=== PATIENT | female | born 1955 | race Hispanic/Latino ===

== ENCOUNTER 2016-11-30 13:41 | Observation (INO) | payer MEDICAID ==
[2016-11-30 13:42] VITALS: BMI 15.1
--- NOTE | 2016-11-30 14:27 | C.PDOC ---
History Of Present Illness A 61 y/o F with a Hx of HTN, diabetes, and CA who has not followed up with her PMD since her last CA 2 years ago, c/o left sided chest pain associated with nausea, vomiting, and diarrhea for 3 days. Patient took 81 mg of Aspirin prior to arrival. Denies fever, chills, SOB, palpitations, diaphoresis, lightheadedness, lower extremity pain, weakness, abdominal pain, or any other complaints. Time Seen by Provider: 11/30/16 14:06 Chief Complaint (Nursing): Chest Pain History Per: Patient History/Exam Limitations: no limitations Onset/Duration Of Symptoms: Days (3) Severity: Mild Quality: "Pain" Associated Symptoms: Nausea, Other (Vomiting and diarrhea) Recent travel outside of the [place]: No Additional History Per: Patient Past Medical History Reviewed: Historical Data, Nursing Documentation, Vital Signs Vital Signs: Last Vital Signs Temp 99.0 F 11/30/16 13:51 Pulse 102 H 11/30/16 15:42 Resp 17 11/30/16 15:42 BP 150/91 H 11/30/16 15:42 Pulse Ox 97 11/30/16 19:21 - Medical History PMH: CHF, Depression, Diabetes, Fractures (left 5th metacarpal), HTN Denies: Chronic Kidney Disease - [facility] Procedures APPLICATION OF SPLINT (11/03/13) CL FX REDUC-RADIUS/ULNA (12/31/13) CORONAR ARTERIOGR-2 CATH (05/15/14) INSPECTION OF LOWER INTESTINAL TRACT, ENDO (04/07/15) LEFT HEART CARDIAC CATH (05/15/14) LT HEART ANGIOCARDIOGRAM (05/15/14) OP RED-INT FIX RAD/ULNA (01/23/14) Family History: States: Unknown Family Hx - Social History Hx Tobacco Use: Yes Hx Alcohol Use: Yes Hx Substance Use: No - Immunization History Hx Tetanus Toxoid Vaccination: Yes Hx Influenza Vaccination: Yes Hx Pneumococcal Vaccination: Yes Review Of Systems Except As Marked, All Systems Reviewed And Found Negative. Constitutional: Negative for: Fever, Chills, Sweats Cardiovascular: Positive for: Chest Pain (Left sided). Negative for: Palpitations, Light Headedness Respiratory: Negative for: Shortness of Breath Gastrointestinal: Positive for: Nausea, Vomiting, Diarrhea. Negative for: Abdominal Pain Physical Exam - Physical Exam Appears: Non-toxic, No Acute Distress, Unkempt Skin: Warm, Dry Head: Atraumatic, Normacephalic Cardiovascular: Rhythm Regular (Tachycardic) Respiratory: Normal Breath Sounds, No Accessory Muscle Use, No Rales, No Rhonchi , No Wheezing Gastrointestinal/Abdominal: Soft, No Tenderness Extremity: Normal ROM (x4), No Pedal Edema, No Calf Tenderness, Capillary Refill (<2secs), No Swelling Extremity: Bilateral: Normal Color And Temperature Neurological/Psych: Oriented x3, Normal Speech, Normal Cognition ED Course And Treatment - Laboratory Results Result Diagrams: 11/30/16 14:28 11/30/16 14:28 O2 Sat by Pulse Oximetry: 97 (RA) Pulse Ox Interpretation: Normal - CT Scan/US CTA CHEST Other Rad Studies (CT/US): Interpreted By Me, Read By Radiologist CT/US Interpretation: EXAM: CT Angiography Chest With Intravenous Contrast. CLINICAL HISTORY: 61 years old, female; Pain; Chest pain; Type not specified. TECHNIQUE: Axial computed tomographic angiography images of the chest with intravenous contrast using. pulmonary embolism protocol. This CT exam was performed using one or more of the following dose. reduction techniques: automated exposure control, adjustment of the mA and/or kV according to. patient size, and/or use of iterative reconstruction technique. MIP reconstructed images were created and reviewed. Coronal and sagittal reformatted images were created and reviewed. CONTRAST: 100 mL of visipaque 320 administered intravenously. EXAM DATE/TIME: Exam ordered 11/30/2016 6:00 PM. COMPARISON: CT - CHEST W/O CONTRAST 04/13/2015 4:09:27 PM. FINDINGS: Pulmonary arteries: Unremarkable. No pulmonary embolism. Aorta: No acute findings. No thoracic aortic aneurysm. Lungs: There is very mild centrilobular type emphysema There is hyperinflation. A 4 mm pulmonary. nodules noted in the lateral basal segment of the right lower lobe (series 4 image 65). This is stable. A pleural-based nodule is noted in the posterior basal segment of the right lower lobe (series 4 image. 61).. This is stable. A 2 mm pleural-based nodule is noted in the lateral basal segment of the left. lower lobe. This is stable. Pleural space: Unremarkable. No significant effusion. No pneumothorax. Heart: Unremarkable. No cardiomegaly. No significant pericardial effusion. No evidence of RV. dysfunction. Mediastinum: There is a small sliding hiatal hernia. Bones/joints: No acute fracture. No dislocation. Soft tissues: There is mild inflammatory stranding noted within the fat of the anterior pararenal. space.. Lymph nodes: Unremarkable. No enlarged lymph nodes. Liver: The liver is low in density. Pancreas: Calcifications are noted within the pancreatic head. There is relative atrophy of the tail of. the pancreas. There is a dilatation of the pancreatic duct. IMPRESSION: 1. No pulmonary embolism. 2. Bilateral pulmonary nodules which are stable from the previous study dated 04/13. ACR. White Paper guidelines (MacMahon, et al. Radiology 2017; 284(1):228 -43) suggest that no further. follow-up is necessary for patients with low or high risk of malignancy. 3. Mild emphysema with hyperinflation. 4. Hepatic steatosis. 5. Chronic calcific pancreatitis. 6. Inflammatory stranding noted within the fat of the anterior pararenal space. This could be. manifestation of pancreatitis but is probably not changed from previous. Medical Decision Making Medical Decision Making: Impression: A 61 y/o F c/o left sided chest pain associated with nausea, vomiting, and diarrhea for 3 days. Hx of HTN, diabetes, and CA. Has not followed up with PMD since her last CA 2 years ago, Plans: * EKG * CXR * Blood work up * Aspirin * Reassess EKG shows sinus tachycardia at 105bpm with normla intervals and no ST changes. Cxray negative. Presentation more consistent with acs, but will get CTA to r/o PE due to elevated d-dimer. Spoke to Dr. Michel, patient to be transferred to tele observation for acs. Disposition - Disposition Disposition: HOSPITALIZED Disposition Time: 15:42 Condition: FAIR - Clinical Impression Clinical Impression: Chest discomfort - Scribe Statement The provider has reviewed the documentation as recorded by the Scribe Dilia holden All medical record entries made by the Nerisibdonte were at my direction and personally dictated by me. I have reviewed the chart and agree that the record accurately reflects my personal performance of the history, physical exam, medical decision making, and the department course for this patient. I have also personally directed, reviewed, and agree with the discharge instructions and disposition.
[2016-11-30 14:44] LABS: PROTHROMBIN TIME 11.5 SECONDS (9.7-12.2)
[2016-11-30 14:46] LABS: ALBUMIN 3.8 g/dL (3.5-5.0)
[2016-11-30 14:48] LABS: ALB/GLOB RATIO 0.9 (1.0-2.1); ALT/SGPT 57 U/L (9-52); AST/SGOT 111 U/L (14-36); BASO # 0.1 K/uL (0.0-0.2); BASO % 1.1 % (0.0-2.0); BLOOD UREA NITROGEN 5 mg/dL (7-17); EOS # 0.1 K/uL (0.0-0.7); EOS % 1.3 % (0.0-4.0); GFR AFRICAN-AMERICAN > 60; GFR NON-AFRICAN AMERICAN > 60; HEMOGLOBIN 11.4 g/dL (11.0-16.0); LYMPH % 19.3 % (20.0-40.0); MEAN CORPUSCULAR HEMOGLOBIN 35.6 pg (27.0-31.0); MEAN CORPUSCULAR HGB CONC 33.9 g/dL (33.0-37.0); MEAN PLATELET VOLUME 9.2 fL (7.2-11.7); MONO # 0.5 K/uL (0.0-0.8); MONO % 9.3 % (0.0-10.0); NEUT # 3.6 K/uL (1.8-7.0); NRBC % 0.1 % (0.0-2.0); RBC 3.21 Mil/uL (3.80-5.20); RED CELL DISTRIBUTION WIDTH 16.2 % (11.5-14.5); WHITE BLOOD COUNT 5.2 K/uL (4.8-10.8)
[2016-11-30 14:49] LABS: LIPASE 11 U/L (23-300); MAGNESIUM 1.1 mg/dL (1.6-2.3)
[2016-11-30 14:55] LABS: CK-MB 0.68 ng/mL (0.0-3.38)
--- NOTE | 2016-11-30 16:04 | RAD ---
HISTORY: chest pain COMPARISON: No prior. FINDINGS: LUNGS: No active pulmonary disease. PLEURA: No significant pleural effusion identified, no pneumothorax apparent. CARDIOVASCULAR: Normal. OSSEOUS STRUCTURES: No significant abnormalities. VISUALIZED UPPER ABDOMEN: Normal. OTHER FINDINGS: None. IMPRESSION: No active disease.
[2016-11-30] MEDS ORDERED: Sodium Chloride 0.9% 1,000 ML IV ONE (16:35)
[2016-11-30] MEDS ORDERED: Sodium Chloride 0.9% 1,000 ML ONE (17:11)
[2016-11-30] MEDS ORDERED: Iodixanol 320 mg/ml 150 ml Bottle IV ONE (18:41)
--- NOTE | 2016-11-30 19:32 | CT ---
EXAM: CT Angiography Chest With Intravenous Contrast CLINICAL HISTORY: 61 years old, female; Pain; Chest pain; Type not specified TECHNIQUE: Axial computed tomographic angiography images of the chest with intravenous contrast using pulmonary embolism protocol. This CT exam was performed using one or more of the following dose reduction techniques: automated exposure control, adjustment of the mA and/or kV according to patient size, and/or use of iterative reconstruction technique. MIP reconstructed images were created and reviewed. Coronal and sagittal reformatted images were created and reviewed. CONTRAST: 100 mL of visipaque 320 administered intravenously. EXAM DATE/TIME: Exam ordered 11/30/2016 6:00 PM COMPARISON: CT - CHEST W/O CONTRAST 04/13/2015 4:09:27 PM FINDINGS: Pulmonary arteries: Unremarkable. No pulmonary embolism. Aorta: No acute findings. No thoracic aortic aneurysm. Lungs: There is very mild centrilobular type emphysema There is hyperinflation. A 4 mm pulmonary nodules noted in the lateral basal segment of the right lower lobe (series 4 image 65). This is stable. A pleural-based nodule is noted in the posterior basal segment of the right lower lobe (series 4 image 61).. This is stable. A 2 mm pleural-based nodule is noted in the lateral basal segment of the left lower lobe. This is stable. Pleural space: Unremarkable. No significant effusion. No pneumothorax. Heart: Unremarkable. No cardiomegaly. No significant pericardial effusion. No evidence of RV dysfunction. Mediastinum: There is a small sliding hiatal hernia. Bones/joints: No acute fracture. No dislocation. Soft tissues: There is mild inflammatory stranding noted within the fat of the anterior pararenal space.. Lymph nodes: Unremarkable. No enlarged lymph nodes. Liver: The liver is low in density. Pancreas: Calcifications are noted within the pancreatic head. There is relative atrophy of the tail of the pancreas. There is a dilatation of the pancreatic duct. IMPRESSION: 1. No pulmonary embolism. 2. Bilateral pulmonary nodules which are stable from the previous study dated 04/13/2015. ACR White Paper guidelines (Jacquelinehosoni, et al. Radiology 2017; 284(1):228-43) suggest that no further follow-up is necessary for patients with low or high risk of malignancy. 3. Mild emphysema with hyperinflation 4. Hepatic steatosis. 5. Chronic calcific pancreatitis. 6. Inflammatory stranding noted within the fat of the anterior pararenal space. This could be manifestation of pancreatitis but is probably not changed from previous.
[2016-12-01] MEDS ORDERED: Nitroglycerin 2% Ointment Foilpak UD TOP PRN (02:52)
[2016-12-01] MEDS ORDERED: Albuterol-Ipratrop 3 mg / 0.5 (3 ml) UD INH STA (02:53)
[2016-12-01 04:17] LABS: CK-MB 0.31 ng/mL (0.0-3.38)
[2016-12-01] MEDS ORDERED: Magnesium Sulfate 1 gm in D5W 1 GM/100 ML BAG IVPB ONE (09:41)
[2016-12-01] MEDS: Enoxaparin 40 mg Syringe SC SCH (10:41)
[2016-12-01] MEDS: Pantoprazole 40 mg EC Tab PO SCH (10:41)
[2016-12-01] MEDS: Sodium Chloride 0.9% 1,000 ML IV SCH ×2 (10:42→19:54)
--- NOTE | 2016-12-01 11:49 | CP.PCM.PN ---
Subjective - Date & Time of Evaluation Date of Evaluation: 12/01/16 Time of Evaluation: 09:00 - Subjective Subjective: PGY-2 Resident Progress Note for Dr. Michel Patient seen and examined at bedside. No acute events overnight. Patient still complains of left sided chest discomfort. Patient reports her nausea and vomiting have resolved. Patient denies alcohol consumption prior to ED admission , stating her last drink was more than 2 weeks ago. Patient is noncompliance, stating her doctors do not like her insurance anymore. Patient denies headache, fever, chills, shortness of breath, coughs, nausea, vomiting, or diarrhea. Objective - Vital Signs/Intake and Output Vital Signs (last 24 hours): Temp Pulse Resp BP Pulse Ox 98.1 F 81 18 148/72 100 12/01/16 07:00 12/01/16 08:00 12/01/16 07:00 12/01/16 07:00 12/01/16 07:00 - Medications Medications: Current Medications Aspirin (Ecotrin) 81 mg PO DAILY [facility] Last Admin: 12/01/16 10:40 Dose: 81 mg Enoxaparin Sodium (Lovenox) 40 mg SC DAILY [facility] Last Admin: 12/01/16 10:41 Dose: 40 mg Sodium Chloride (Sodium Chloride 0.9%) 1,000 mls @ 100 mls/hr IV .Q10H [facility] Last Admin: 12/01/16 10:42 Dose: 100 mls/hr Insulin Human Regular (Novolin R) 0 unit SC ACHS [facility] PRN Reason: Protocol Nitroglycerin (Nitro-Bid 2% Oint) 1 ea TOP Q4 PRN PRN Reason: Pain, moderate (4-7) Pantoprazole Sodium (Protonix Ec Tab) 40 mg PO DAILY [facility] Last Admin: 12/01/16 10:41 Dose: 40 mg - Labs Labs: PT 11.5 SECONDS (9.7-12.2) 11/30/16 14:33 INR 1.0 11/30/16 14:33 APTT 31 SECONDS (21-34) 11/30/16 14:33 - Constitutional Appears: Non-toxic, No Acute Distress, Chronically Ill - Head Exam Head Exam: ATRAUMATIC, NORMAL INSPECTION - Eye Exam Eye Exam: Normal appearance - ENT Exam ENT Exam: Mucous Membranes Moist - Neck Exam Neck Exam: Normal Inspection - Respiratory Exam Respiratory Exam: Clear to Ausculation Bilateral, NORMAL BREATHING PATTERN. absent: Wheezes, Respiratory Distress - Cardiovascular Exam Cardiovascular Exam: REGULAR RHYTHM, +S1, +S2. absent: Murmur - GI/Abdominal Exam GI & Abdominal Exam: Soft, Normal Bowel Sounds. absent: Tenderness - Extremities Exam Extremities Exam: Full ROM, Normal Capillary Refill, Normal Inspection. absent : Joint Swelling, Pedal Edema - Neurological Exam Neurological Exam: Alert, Awake, Oriented x3 - Psychiatric Exam Psychiatric exam: Normal Affect, Normal Mood - Skin Skin Exam: Normal Color, Warm Assessment and Plan - Assessment and Plan (Free Text) Assessment: Chest pain r/o ACS -Cardiology consult, Dr. Khan help appreciated -COREY negative x2 -No acute ST changes on EKG -CXR showed no active disease -ASA -Nitroglycerin -Echo showed Grade 1 abnormal relaxation pattern, but otherwise normal study. EF 60% Hypertension -Metoprolol 25mg -Monitor vitals DM -ISS -Pending A1c HLD -Lipid panel Prophylactic measures -Lovenox -Protonix
[2016-12-01 12:01] LABS: CK-MB 0.27 ng/mL (0.0-3.38)
--- NOTE | 2016-12-01 12:49 | CARD ---
APPROVED REPORT EKG Measurement Heart [id number] <Conclusion> Sinus tachycardia Otherwise normal ECG
--- NOTE | 2016-12-01 13:09 | CARD ---
APPROVED REPORT EXAM: Two-dimensional and M-mode echocardiogram with Doppler and color Doppler. Other Information Quality : GoodRhythm : NSR INDICATION Chest Pain H/O DC; ALCOHOL ABUSE RISK FACTORS Hypertension Diabetes Smoking 2D DIMENSIONS IVSd0.9 (0.7-1.1cm)LVDd4.2 (3.9-5.9cm) LVOT Diameter1.6 (1.8-2.4cm)PWd0.9 (0.7-1.1cm) IVSs1.1 (0.8-1.2cm)LVDs2.8 (2.5-4.0cm) FS (%) 32.7 %PWs1.2 (0.8-1.2cm) LVEF (%)61.6 (>50%) Aortic Valve AoV Peak Drlmepas832.6cm/sAoV VTI30.2cmAO Peak GR.7mmHg LVOT Peak Cvlybjlp606.3cm/Kings Mean GR.6mmHgAVA (VMAX)1.57cm2 Mitral Valve MV E Dbtgozsy84.0cm/sMV A Ffjaedjv63.7cm/sE/A ratio0.6 TDI E/Lateral E'0.0E/Medial E'0.0 Pulmonary Valve PV Peak Ryampymi406.5cm/sPV Peak Grad.5mmHg Tricuspid Valve TR Peak [id number]/sTR Peak Gr.[id number] LEFT VENTRICLE The left ventricle is normal size. There is normal left ventricular wall thickness. The left ventricular function is normal. The left ventricular ejection fraction is within the normal range. There is normal LV segmental wall motion. The left ventricular diastolic function is normal. Transmitral Doppler flow pattern is Grade I-abnormal relaxation pattern. No left ventricle thrombus noted on this study. There is no ventricular septal defect visualized. There is no left ventricular aneurysm. There is no mass noted in the left ventricle. RIGHT VENTRICLE The right ventricle is normal size. There is normal right ventricular wall thickness. The right ventricular systolic function is normal. ATRIA The left atrium size is normal. The right atrium size is normal. The interatrial septum is intact with no evidence for an atrial septal defect. AORTIC VALVE The aortic valve is normal in structure. No aortic regurgitation is present. There is no aortic valvular stenosis. There is no aortic valvular vegetation. MITRAL VALVE The mitral valve is normal in structure. There is no mitral valve stenosis. There is no mitral valve regurgitation noted. TRICUSPID VALVE The tricuspid valve is normal in structure. There is no tricuspid valve regurgitation noted. PULMONIC VALVE The pulmonary valve is normal in structure. GREAT VESSELS The aortic root is normal in size. The ascending aorta is normal in size. The pulmonary artery is normal. The IVC is normal in size and collapses >50% with inspiration. PERICARDIAL EFFUSION There is no pericardial effusion. <Conclusion> The left ventricular diastolic function is normal. Transmitral Doppler flow pattern is Grade I-abnormal relaxation pattern. LVEF IS 60%. OTHERWISE NORMAL STUDY.
[2016-12-01] MEDS: (Novolin R) Insulin Human Regular 100 units/ml vial SC SCH ×3 (13:32→21:48)
[2016-12-01 15:59] VITALS: TEMP 98.5
--- NOTE | 2016-12-01 17:13 | CP.PCM.CON ---
History of Present Illness - History of Present Illness History of Present Illness: I was asked to see patient by Dr. Michel. Patient is a 61 year old male with a history of HTN, hypercholesterolemia, CAD who presents wtih chest/upper abdominal pain. The patient was noted to have symptoms for the last few days. She describes a nauseous feeling. The patient denies dyspnea. She has been noncompliant with medical follow up. Review of Systems - Constitutional Constitutional: absent: As Per HPI, Anorexia, Chills, Daytime Sleepiness, Excessive Sweating, Fatigue, Fever, Frequent Falls, Headache, Increased Appetite , Lethargy, Malaise, Night Sweats, Snoring, Sleep Apnea, Weight Gain, Weight Loss, Weakness, Other - EENT Eyes: absent: As Per HPI, Blind Spots, Blurred Vision, Change in Vision, Decreased Night Vision, Diplopia, Discharge, Dry Eye, Exophthalmos, Floaters, Irritation, Itchy Eyes, Loss of Peripheral Vision, Pain, Photophobia, Requires Corrective Lenses, Sees Flashes, Spots in Vision, Tunnel Vision, Other Visual Disturbances, Loss of Vision, Other Ears: absent: As Per HPI, Decreased Hearing, Ear Discharge, Ear Pain, Tinnitus, Abnormal Hearing, Disequilibrium, Dizziness, Other Nose/Mouth/Throat: absent: As Per HPI, Epistaxis, Nasal Congestion, Nasal Discharge, Nasal Obstruction, Nasal Trauma, Nose Pain, Post Nasal Drip, Sinus Pain, Sinus Pressure, Bleeding Gums, Change in Voice, Dental Pain, Dry Mouth, Dysphagia, Halitosis, Hoarsness, Lip Swelling, Mouth Lesions, Mouth Pain, Odynophagia, Sore Throat, Throat Swelling, Tongue Swelling, Facial Pain, Neck Pain, Neck Mass, Other - Cardiovascular Cardiovascular: absent: As Per HPI, Acrocyanosis, Chest Pain, Chest Pain at Rest , Chest Pain with Activity, Claudication, Diaphoresis, Dyspnea, Dyspnea on Exertion, Edema, Irregular Heart Rhythm, Pain Radiating to Arm/Neck/Jaw, Leg Edema, Leg Ulcers, Lightheadedness, Orthopnea, Palpitations, Paroxysmal Nocturnal Dyspnea, Pedal Edema, Radiating Pain, Rapid Heart Rate, Slow Heart Rate, Syncope, Other - Respiratory Respiratory: absent: As Per HPI, Cough, Dyspnea, Hemoptysis, Dyspnea on Exertion , Wheezing, Snoring, Stridor, Pain on Inspiration, Chest Congestion, Excessive Mucous Production, Change in Mucous Color, Pain with Coughing, Other - Gastrointestinal Gastrointestinal: Abdominal Pain - Genitourinary Genitourinary: absent: As Per HPI, Change in Urinary Stream, Difficulty Urinating, Dysuria, Flank Pain, Hematuria, Pyuria, Nocturia, Urinary Incontinence, Urinary Frequency, Urinary Hesitance, Urinary Urgency, Voiding Freq/Small Amts, Freq UTI, Hx Renal/Bladder Calculi, Hx /Renal Surgery, Bladder Distension, Other - Musculoskeletal Musculoskeletal: absent: As Per HPI, Abnormal Gait, Arthralgias, Atrophy, Back Pain, Deformity, Joint Swelling, Limited Range of Motion, Loss of Height, Muscle Cramps, Muscle Weakness, Myalgias, Neck Pain, Numbness, Radiating Pain into Limb, Stiffness, Tingling, Other - Integumentary Integumentary: absent: As Per HPI, Acne, Alopecia, Bleeding Lesions, Change in Hair, Change in Nails, Change in Pigmentation, Changing Lesions, Dry Skin, Erythema, Furuncle, Hirsutism, Lesions, New Lesions, Non-Healing Lesions, Photosensitivity, Pruritus, Rash, Skin Pain, Skin Ulcer, Sores, Striae, Swelling , Unusual Bruising, Wounds, Jaundice, Other - Neurological Neurological: absent: As Per HPI, Abnormal Gait, Abnormal Hearing, Abnormal Movements, Abnormal Speech, Behavioral Changes, Burning Sensations, Confusion, Convulsions, Disequilibrium, Dizziness, Numbness, Focal Weakness, Frequent Falls , Headaches, Lack of Coordination, Loss of Vision, Memory Loss, Paresthesias, Radicular Pain, Restless Legs, Sensory Deficit, Syncope, Tingling, Tremor, Vertigo, Weakness, Other Visual Disturbances, Other - Psychiatric Psychiatric: absent: As Per HPI, Abnormal Sleep Pattern, Anhedonia, Anxiety, Auditory Hallucinations, Behavioral Changes, Change in Appetite, Change in Libido, Confusion, Depression, Difficulty Concentrating, Hallucinations, Homicidal Ideation, Hopelessness, Irritability, Memory Loss, Mood Swings, Panic Attacks, Paranoia, Suicidal Ideation, Visual Hallucinations, Tactile Hallucinations, Other - Endocrine Endocrine: absent: As Per HPI, Change in Body Appearance, Change in Libido, Cold Intolorance, Deepening of Voice, Excessive Sweating, Fatigue, Flushing, Heat Intolorance, Increase in Ring/Shoe/Hat Size, Palpitations, Polydipsia, Polyphagia, Polyuria, Other - Hematologic/Lymphatic Hematologic: absent: As Per HPI, Easy Bleeding, Easy Bruising, Lymphadenopathy, Other Past Patient History - Infectious Disease Hx of Infectious Diseases: None - Past Medical History & Family History Past Medical History?: Yes - Past Social History Smoking Status: Former Smoker - CARDIAC Hx Cardiac Disorders: Yes Hx Congestive Heart Failure: Yes Hx Heart Attack: Yes Hx Hypertension: Yes - PULMONARY Hx Respiratory Disorders: No Other/Comment: HEAVY SMOKER - NEUROLOGICAL Hx Neurological Disorder: Yes HX Cerebrovascular Accident: Yes (As per CT exam) Hx Transient Ischemic Attacks (TIA): Yes (As per pt) - HEENT Hx HEENT Problems: No - RENAL Hx Chronic Kidney Disease: No - ENDOCRINE/METABOLIC Hx Endocrine Disorders: Yes Hx Diabetes Mellitus Type 2: Yes - HEMATOLOGICAL/ONCOLOGICAL Hx Blood Disorders: No - INTEGUMENTARY Hx Dermatological Problems: No - MUSCULOSKELETAL/RHEUMATOLOGICAL Hx Musculoskeletal Disorders: Yes Hx Falls: Yes Hx Fractures: Yes (left 5th metacarpal) - GASTROINTESTINAL Hx Gastrointestinal Disorders: Yes Hx Clostridium Difficile: Yes - GENITOURINARY/GYNECOLOGICAL Hx Genitourinary Disorders: No - PSYCHIATRIC Hx Psychophysiologic Disorder: Yes Hx Depression: Yes Hx Substance Use: No - SURGICAL HISTORY Hx Surgeries: Yes Hx Angiogram: Yes (Lt Hrt Angiocardiogram 04/2014) Hx Cardiac Catheterization: Yes (Lt [facility] Cardiac cath 04/2014) Hx Orthopedic Surgery: Yes (left wrist) Other/Comment: ABDOMINAL EXPLORITORY SX. - ANESTHESIA Hx Anesthesia: Yes Hx Anesthesia Reactions: No Hx Malignant Hyperthermia: No Meds Allergies/Adverse Reactions: Allergies Allergy/AdvReac Type Severity Reaction Status Date / Time acetaminophen [From Tylenol] Allergy Intermediate SWELLING Verified 11/30/16 13: 55 codeine Allergy Intermediate SWELLING Verified 11/30/16 13:55 Penicillins Allergy Intermediate SWELLING Verified 11/30/16 13:55 - Medications Medications: Current Medications Aspirin (Ecotrin) 81 mg PO DAILY REPLACED BY [facility] Last Admin: 12/01/16 10:40 Dose: 81 mg Enoxaparin Sodium (Lovenox) 40 mg SC DAILY REPLACED BY [facility] Last Admin: 12/01/16 10:41 Dose: 40 mg Sodium Chloride (Sodium Chloride 0.9%) 1,000 mls @ 100 mls/hr IV .Q10H REPLACED BY [facility] Last Admin: 12/01/16 10:42 Dose: 100 mls/hr Insulin Human Regular (Novolin R) 0 unit SC [facility] REPLACED BY [facility] PRN Reason: Protocol Last Admin: 12/01/16 13:32 Dose: 2 unit Nitroglycerin (Nitro-Bid 2% Oint) 1 ea TOP Q4 PRN PRN Reason: Pain, moderate (4-7) Pantoprazole Sodium (Protonix Ec Tab) 40 mg PO DAILY REPLACED BY [facility] Last Admin: 12/01/16 10:41 Dose: 40 mg Physical Exam - Constitutional Appears: Non-toxic - Head Exam Head Exam: NORMAL INSPECTION - Eye Exam Eye Exam: Normal appearance - ENT Exam ENT Exam: Mucous Membranes Moist - Neck Exam Neck exam: Positive for: Full Rom - Respiratory Exam Respiratory Exam: NORMAL BREATHING PATTERN - Cardiovascular Exam Cardiovascular Exam: REGULAR RHYTHM - GI/Abdominal Exam GI & Abdominal Exam: Guarding, Normal Bowel Sounds, Soft - Rectal Exam Rectal Exam: Deferred - Extremities Exam Extremities exam: Positive for: full ROM. Negative for: pedal edema - Back Exam Back exam: NORMAL INSPECTION - Neurological Exam Neurological exam: Alert, Oriented x3 - Psychiatric Exam Psychiatric exam: Normal Affect - Skin Skin Exam: Normal Color Results - Vital Signs Recent Vital Signs: Last Vital Signs Temp 98.5 F 12/01/16 15:56 Pulse 92 H 12/01/16 15:56 Resp 20 12/01/16 15:56 BP 162/80 H 12/01/16 15:56 Pulse Ox 96 12/01/16 15:56 - Labs Result Diagrams: 11/30/16 14:28 11/30/16 14:28 Labs: Laboratory Results - last 24 hr 11/30/16 12/01/16 12/01/16 17:25 03:53 06:41 D-Dimer, Quantitative 262 H POC Glucose (mg/dL) 114 H Total Creatine Kinase 38 CK-MB (Mass) 0.31 Troponin I, Quant < 0.0120 12/01/16 12/01/16 12/01/16 11:13 11:14 16:35 D-Dimer, Quantitative POC Glucose (mg/dL) 214 H 163 H Total Creatine Kinase 32 CK-MB (Mass) 0.27 Troponin I, Quant < 0.0120 - EKG Data EKG Interpreted by: Myself Assessment & Plan - Assessment and Plan (Free Text) Assessment: CAD reported history of coronary stenting. She has ruled out for myocardial infarction. The echocardiogram reveals normal left ventricular function. no wall motion abnormalities are noted. The patient has upper abdominal pain. The symptoms are unlikely to be cardiac in origin. Hypertension. will need betablcoker therapy
[2016-12-01 19:59] LABS: HDL CHOLESTEROL 70 mg/dL (30-70)
[2016-12-01 20:11] LABS: LDL CHOLESTEROL < 30 mg/dL (0-129)
[2016-12-02 07:27] LABS: BASO % 0.7 % (0.0-2.0); EOS # 0.3 K/uL (0.0-0.7); EOS % 6.4 % (0.0-4.0); HEMOGLOBIN 9.8 g/dL (11.0-16.0); LYMPH # 1.1 K/uL (1.0-4.3); LYMPH % 25.9 % (20.0-40.0); MEAN CELL VOLUME 107.6 fL (81.0-99.0); MEAN CORPUSCULAR HEMOGLOBIN 35.9 pg (27.0-31.0); MEAN CORPUSCULAR HGB CONC 33.3 g/dL (33.0-37.0); MEAN PLATELET VOLUME 8.9 fL (7.2-11.7); MONO # 0.3 K/uL (0.0-0.8); MONO % 7.7 % (0.0-10.0); NEUT # 2.4 K/uL (1.8-7.0); NEUT % 59.3 % (50.0-75.0); NRBC % 0.1 % (0.0-2.0); RBC 2.74 Mil/uL (3.80-5.20); WHITE BLOOD COUNT 4.1 K/uL (4.8-10.8)
[2016-12-02 07:30] LABS: ALBUMIN 3.2 g/dL (3.5-5.0)
[2016-12-02 07:33] LABS: ALB/GLOB RATIO 0.9 (1.0-2.1); ALT/SGPT 40 U/L (9-52); AST/SGOT 60 U/L (14-36); BLOOD UREA NITROGEN 6 mg/dL (7-17); GFR AFRICAN-AMERICAN > 60; GFR NON-AFRICAN AMERICAN > 60
[2016-12-02 07:34] LABS: CALCIUM 8.6 mg/dl (8.6-10.4)
[2016-12-02 08:16] VITALS: BP 129/68
[2016-12-02] MEDS: (Novolin R) Insulin Human Regular 100 units/ml vial SC SCH (08:17)
[2016-12-02 08:31] VITALS: RESP 18; O2SAT 97
[2016-12-02 08:54] VITALS: PULSE 87
[2016-12-02] MEDS: Enoxaparin 40 mg Syringe SC SCH (09:24)
[2016-12-02] MEDS: Pantoprazole 40 mg EC Tab PO SCH (09:25)
--- NOTE | 2016-12-02 11:25 | CP.PCM.PN ---
Subjective - Date & Time of Evaluation Date of Evaluation: 12/02/16 Time of Evaluation: 11:20 - Subjective Subjective: [employer] NOTES 61 YR old female admitted for Chest pain r/o ACS Pt seen today denies any sob, palpitations, head ache, N/V/D, c/o mild epigastric pain troponin x 3 - negative seen by Dr. Mark moreno , as per Dr. Michel patient can be discharged home today and f/u with PMD and Dr. hernandez Discharge plan discussed with patient , who understands and agrees with plan Pt instructed to returns to ED if symptoms get worse or any other concerning symptoms RX given Objective - Vital Signs/Intake and Output Vital Signs (last 24 hours): Temp Pulse Resp BP Pulse Ox 98.5 F 87 18 129/68 97 12/02/16 08:00 12/02/16 08:00 12/02/16 08:00 12/02/16 08:16 12/02/16 08:00 Intake and Output: 12/02/16 12/02/16 06:59 18:59 Intake Total 1600 Balance 1600 - Medications Medications: Current Medications Aspirin (Ecotrin) 81 mg PO DAILY [facility] Last Admin: 12/02/16 09:24 Dose: 81 mg Enoxaparin Sodium (Lovenox) 40 mg SC DAILY [facility] Last Admin: 12/02/16 09:24 Dose: 40 mg Sodium Chloride (Sodium Chloride 0.9%) 1,000 mls @ 100 mls/hr IV .Q10H [facility] Last Admin: 12/01/16 19:54 Dose: Not Given Insulin Human Regular (Novolin R) 0 unit SC ACHS [facility] PRN Reason: Protocol Last Admin: 12/02/16 08:17 Dose: Not Given Metoprolol Tartrate (Lopressor) 25 mg PO BIDBS [facility] Last Admin: 12/02/16 08:16 Dose: 25 mg Nitroglycerin (Nitro-Bid 2% Oint) 1 ea TOP Q4 PRN PRN Reason: Pain, moderate (4-7) Pantoprazole Sodium (Protonix Ec Tab) 40 mg PO DAILY [facility] Last Admin: 12/02/16 09:25 Dose: 40 mg - Labs Labs: 12/02/16 07:16 12/02/16 07:16 PT 11.5 SECONDS (9.7-12.2) 11/30/16 14:33 INR 1.0 11/30/16 14:33 APTT 31 SECONDS (21-34) 11/30/16 14:33
--- NOTE | 2016-12-03 14:34 | HP ---
HISTORY OF PRESENT ILLNESS: The patient is a 61-year-old female chief complaint chest pain. The patient has a history of coronary artery disease before. The patient has a long history of *------*. SOCIAL HISTORY: The patient is a past smoker. PHYSICAL EXAMINATION GENERAL: The patient is awake, alert and oriented. VITAL SIGNS: Temperature 98, pulse 90. HEENT: Within normal limits. NECK: Supple. CHEST: Symmetrical. HEART: Regular. ABDOMEN: Soft. EXTREMITIES: No edema. IMPRESSION: The patient has long history of COPD. *------* Orlando Michel MD
== END 2016-12-02 13:45 | disposition home or self-care (01) ==
LOC: C.ER 13:41 → C.9E 16:35 → C.6T 12-01 01:16
PROVIDERS: ADMIT Internal Medicine Pulmonary Disease; ATTEND Internal Medicine Pulmonary Disease
DX: R07.89 Other chest pain (principal); E11.9 Type 2 diabetes mellitus without complications; E78.5 Hyperlipidemia, unspecified; I11.0 Hypertensive heart disease with heart failure; I25.10 Atherosclerotic heart disease of native coronary artery without angina pectoris; I50.9 Heart failure, unspecified; K76.0 Fatty (change of) liver, not elsewhere classified; K86.1 Other chronic pancreatitis; Z91.19 Patient's noncompliance with other medical treatment and regimen; Z87.891 Personal history of nicotine dependence
CPT/HCPCS: 36415; 71010; 71275; 80053; 80061; 80320; 82550; 82553; 82948; 83036; 83690; 83735; 84100; 84484; 85025; 85378; 85610; 85730; 93005; 93306; 99285; G0378; J1650; J3475; J7040; Q9965

== ENCOUNTER 2017-01-02 11:46 | Observation (INO) | payer MEDICAID ==
[2017-01-02 11:46] VITALS: BMI 15.1
--- NOTE | 2017-01-02 12:34 | C.PDOC ---
History Of Present Illness 61 year old female, with a history of HTN, diabetes, and MD, presents to the ED with complaints of left sided chest pain exacerbated by walking, left arm numbness, difficulty breathing, and vomiting for two days. She was discharged this month from [facility] for chest pain. Patient had echo performed from Dr. Palma and was negative. She also had negative CTA, patient denies fever or other complaints at this time. Hx of HTN, diabetes, and MD DC THIS MONTH FOR CP. NEG ECHO DR PALMA.NEG CTA Time Seen by Provider: 01/02/17 11:57 Chief Complaint (Nursing): Chest Pain History Per: Patient History/Exam Limitations: no limitations Onset/Duration Of Symptoms: Days (2 days ) Current Symptoms Are (Timing): Still Present Quality: "Pain" Associated Symptoms: Other (vomiting ) Recent travel outside of the [place]: No Additional History Per: Prior Records Past Medical History Reviewed: Historical Data, Nursing Documentation, Vital Signs Vital Signs: Last Vital Signs Temp 98.3 F 01/02/17 11:48 Pulse 90 01/02/17 14:30 Resp 13 01/02/17 14:30 BP 115/70 01/02/17 14:30 Pulse Ox 95 01/02/17 14:30 - Medical History PMH: CHF, Depression, Diabetes, Fractures (left 5th metacarpal), HTN, TIA (As per pt) - [facility] Procedures APPLICATION OF SPLINT (11/03/13) CL FX REDUC-RADIUS/ULNA (12/31/13) CORONAR ARTERIOGR-2 CATH (05/15/14) INSPECTION OF LOWER INTESTINAL TRACT, ENDO (04/07/15) LEFT HEART CARDIAC CATH (05/15/14) LT HEART ANGIOCARDIOGRAM (05/15/14) OP RED-INT FIX RAD/ULNA (01/23/14) Family History: States: Unknown Family Hx - Social History Hx Tobacco Use: Yes (patient states she quite smoking 7 months ago. ) Hx Alcohol Use: Yes Hx Substance Use: No - Immunization History Hx Tetanus Toxoid Vaccination: Yes Hx Influenza Vaccination: Yes (2015) Hx Pneumococcal Vaccination: Yes (2015) Review Of Systems Constitutional: Negative for: Fever, Chills Cardiovascular: Positive for: Chest Pain Respiratory: Positive for: Other (difficulty breathing ) Gastrointestinal: Positive for: Vomiting. Negative for: Diarrhea Neurological: Positive for: Numbness (of left arm ) Physical Exam - Physical Exam Appears: Non-toxic, In Acute Distress (mild distress ) Skin: Warm, Dry Head: Atraumatic Eye(s): bilateral: Normal Inspection Oral Mucosa: Moist Neck: Supple Chest: Symmetrical, No Deformity Cardiovascular: Rhythm Regular Respiratory: Normal Breath Sounds, No Rales, No Rhonchi, No Wheezing Gastrointestinal/Abdominal: Soft, No Tenderness, No Distention, No Guarding, No Rebound Neurological/Psych: Oriented x3, Normal Speech, Normal Cognition ED Course And Treatment - Laboratory Results Result Diagrams: 01/02/17 13:20 01/02/17 13:20 ECG: Interpreted By Me ECG Rhythm: Sinus Rhythm Rate From EC (bpm) O2 Sat by Pulse Oximetry: 95 (on nasal cannula ) Pulse Ox Interpretation: Normal - Radiology CXR: Viewed By Me, Read By Radiologist CXR Interpretation: Yes: No Acute Disease. No: Infiltrates Progress Note: EKG, CXR, and blood work were ordered. Patient was given aspirin and nitrostat. Progress - Re-Evaluation Re-evaluation Note: 01/02/17 14:04 CO RECUR PAIN. VSS. D/W DR MICHEL WILL ADMIT - Data Reviewed Data Reviewed: Lab, Diagnostic imaging, EKG, Old records Disposition Counseled Patient/Family Regarding: Studies Performed, Diagnosis - Disposition Disposition: HOSPITALIZED Disposition Time: 14:05 Condition: STABLE - POA Present On Arrival: None - Clinical Impression Clinical Impression: Chest pain - Scribe Statement The provider has reviewed the documentation as recorded by the Scribe Ashley Ortiz All medical record entries made by the Scribe were at my direction and personally dictated by me. I have reviewed the chart and agree that the record accurately reflects my personal performance of the history, physical exam, medical decision making, and the department course for this patient. I have also personally directed, reviewed, and agree with the discharge instructions and disposition. Decision To Admit - Pt Status Changed To: Hospital Disposition Of: Observation - . Bed Request Type: Telemetry Admitting Physician: Orlando Michel Patient Diagnosis: Chest pain
[2017-01-02] MEDS ORDERED: Aspirin 325 mg EC Tablets PO STA (13:09)
[2017-01-02 13:24] LABS: BASO # 0.1 K/uL (0.0-0.2); EOS # 0.1 K/uL (0.0-0.7); MONO # 0.3 K/uL (0.0-0.8); NRBC % 0.1 % (0.0-2.0); WHITE BLOOD COUNT 2.7 K/uL (4.8-10.8)
[2017-01-02] MEDS ORDERED: Aspirin 325 mg EC Tablets PO ONE (13:25)
--- NOTE | 2017-01-02 13:33 | RAD ---
HISTORY: chest pain COMPARISON: Chest x-ray performed 11/30/16 TECHNIQUE: Chest, one view. FINDINGS: LUNGS: No focal consolidation. Please note that chest x-ray has limited sensitivity for the detection of pulmonary masses. PLEURA: No significant pleural effusion identified. No definite pneumothorax . CARDIOVASCULAR: The cardiomediastinal silhouette appears within normal limits of size. OSSEOUS STRUCTURES: No acute osseous abnormality identified. VISUALIZED UPPER ABDOMEN: Unremarkable. OTHER FINDINGS: None. IMPRESSION: No focal consolidation, significant pleural effusion, or definite pneumothorax identified.
[2017-01-02 13:35] LABS: BASO % 2.3 % (0.0-2.0); BLOOD UREA NITROGEN 5 mg/dL (7-17); CALCIUM 8.7 mg/dl (8.6-10.4); CARBON DIOXIDE 22 mmol/L (22-30); CHLORIDE 94 mmol/L (98-107); EOS % 2.9 % (0.0-4.0); GFR AFRICAN-AMERICAN > 60; GLUCOSE,RANDOM 130 mg/dL (65-105); HEMATOCRIT 32.4 % (34.0-47.0); LYMPH % 37.5 % (20.0-40.0); MEAN CORPUSCULAR HEMOGLOBIN 34.4 pg (27.0-31.0); MEAN CORPUSCULAR HGB CONC 33.3 g/dL (33.0-37.0); MEAN PLATELET VOLUME 8.6 fL (7.2-11.7); MONO % 11.7 % (0.0-10.0); POTASSIUM 3.3 mmol/L (3.6-5.2); RED CELL DISTRIBUTION WIDTH 16.9 % (11.5-14.5); SODIUM 136 mmol/L (132-148)
[2017-01-02 13:36] LABS: MEAN CELL VOLUME 103.4 fL (81.0-99.0)
[2017-01-02] MEDS: Potassium Chloride 20 mEq ER Tab PO SCH (22:43)
[2017-01-03 08:16] VITALS: BP 152/73; RESP 17; TEMP 98.6; O2SAT 99
[2017-01-03] MEDS ORDERED: Enoxaparin 40 mg Syringe SC SCH (10:00)
[2017-01-03] MEDS ORDERED: (Novolin 70/30) NPH/Regular 70/30 Units/ml 10 ml vial SC SCH ×2 (10:00→18:00)
[2017-01-03] MEDS: Potassium Chloride 20 mEq ER Tab PO SCH (10:12)
[2017-01-03 13:18] VITALS: PULSE 85
--- NOTE | 2017-01-03 15:40 | CP.PCM.PN ---
Subjective - Date & Time of Evaluation Date of Evaluation: 01/03/17 Time of Evaluation: 09:20 - Subjective Subjective: PGY2 Medicine progress note for Dr. Michel: Patient is a 61 year old female with PMHx HTN, DM, emphysema who presents with complaint of chest pain and intermittent left arm tingling and numbness. Patient states that she was feeling nauseous and vomited at home prior to arrival at the hospital. Patient also complains of chest tightness for 2 days. Patient reports similar symptoms in the past. Patient states nitro given in the ER did help alleviate chest pain. Patient had workup in November for chest pain and had normal echo as well as CTA negative for pulmonary embolus. Objective - Vital Signs/Intake and Output Vital Signs (last 24 hours): Temp Pulse Resp BP Pulse Ox 98.6 F 85 17 152/73 H 99 01/03/17 07:15 01/03/17 11:00 01/03/17 07:15 01/03/17 10:12 01/03/17 07:15 Intake and Output: 01/03/17 01/03/17 06:59 18:59 Intake Total 120 400 Balance 120 400 - Labs Labs: PT 11.4 SECONDS (9.7-12.2) 01/02/17 13:20 INR 1.0 01/02/17 13:20 APTT 35 SECONDS (21-34) H 01/02/17 13:20 - Constitutional Appears: Non-toxic, No Acute Distress - Head Exam Head Exam: ATRAUMATIC, NORMOCEPHALIC - Eye Exam Eye Exam: EOMI - ENT Exam ENT Exam: Mucous Membranes Moist - Respiratory Exam Respiratory Exam: Clear to Ausculation Bilateral, NORMAL BREATHING PATTERN - Cardiovascular Exam Cardiovascular Exam: +S1, +S2 - GI/Abdominal Exam GI & Abdominal Exam: Soft, Tenderness (epigastric), Normal Bowel Sounds - Extremities Exam Extremities Exam: Normal Inspection. absent: Pedal Edema - Neurological Exam Neurological Exam: Alert, Awake - Psychiatric Exam Psychiatric exam: Normal Affect - Skin Skin Exam: Dry, Warm Assessment and Plan - Assessment and Plan (Free Text) Assessment: chest pain r/p ACS troponin negative x 3 patient's pain is more epigastric in location and reproducible on palpation of epigastric region asa 81mg daily Diabetes continue home regimen of insulin: NPH 5u QPM, NPH 10u QAM accuchecks ACHS Prophylactic measure lovenox 40mg sc daily zofran q6prn nausea pepcid 20mg PO BID All medical management as per Dr. Michel Patient is stable for discharge home per Dr. Michel. Patient will need to follow up with a new primary medical doctor from her insurance plan. If patient would like to continue seeing Dr. Michel, she can follow up with him on discharge. Upon discharge, patient should see a neurologist of her choice for left arm intermittent tingling and a GI physician of her choice for her epigastric pain. Patient should also follow up with second mate Dr. Poole on discharge. Patient should return to the ED if her symptoms reoccur or worsen.
--- NOTE | 2017-01-04 18:26 | CARD ---
APPROVED REPORT EKG Measurement Heart [id number] ID [id number] <Conclusion> Normal sinus rhythm Normal ECG
--- NOTE | 2017-01-07 07:01 | CP.PCM.CON ---
History of Present Illness - History of Present Illness History of Present Illness: Patient is a 61 year old female with PMHx HTN, DM, emphysema who presents with complaint of chest pain and intermittent left arm tingling and numbness. Patient states that she was feeling nauseous and vomited at home prior to arrival at the hospital. Patient also complains of chest tightness for 2 days. Patient reports similar symptoms in the past. Patient states nitro given in the ER did help alleviate chest pain. Patient had workup in November for chest pain and had normal echo as well as CTA negative for pulmonary embolus. Physical Examination - Constitutional Appears: Non-toxic, No Acute Distress - Head Exam Head Exam: ATRAUMATIC, NORMOCEPHALIC - Eye Exam Eye Exam: EOMI - ENT Exam ENT Exam: Mucous Membranes Moist - Respiratory Exam Respiratory Exam: Clear to Ausculation Bilateral, NORMAL BREATHING PATTERN - Cardiovascular Exam Cardiovascular Exam: +S1, +S2 - GI/Abdominal Exam GI & Abdominal Exam: Soft, Tenderness (epigastric), Normal Bowel Sounds - Extremities Exam Extremities Exam: Normal Inspection. absent: Pedal Edema - Neurological Exam Neurological Exam: Alert, Awake - Psychiatric Exam Psychiatric exam: Normal Affect - Skin Skin Exam: Dry, Warm Past Patient History - Infectious Disease Hx of Infectious Diseases: None - Past Medical History & Family History Past Medical History?: Yes - Past Social History Smoking Status: Heavy Smoker > 10 Cigarettes Daily - CARDIAC Hx Congestive Heart Failure: Yes Hx Hypertension: Yes - PULMONARY Hx Respiratory Disorders: No Other/Comment: HEAVY SMOKER - NEUROLOGICAL Hx Transient Ischemic Attacks (TIA): Yes (As per pt) - HEENT Hx HEENT Problems: No - RENAL Hx Chronic Kidney Disease: No - ENDOCRINE/METABOLIC Hx Endocrine Disorders: Yes Hx Diabetes Mellitus Type 2: Yes - HEMATOLOGICAL/ONCOLOGICAL Hx Blood Disorders: No - INTEGUMENTARY Hx Dermatological Problems: No - MUSCULOSKELETAL/RHEUMATOLOGICAL Hx Falls: No - GASTROINTESTINAL Hx Gastrointestinal Disorders: Yes Hx Clostridium Difficile: Yes - GENITOURINARY/GYNECOLOGICAL Hx Genitourinary Disorders: No - PSYCHIATRIC Hx Substance Use: No - SURGICAL HISTORY Hx Surgeries: Yes Hx Angiogram: Yes (Lt Hrt Angiocardiogram 04/2014) Hx Cardiac Catheterization: Yes (Lt hrt Cardiac cath 04/2014) Hx Orthopedic Surgery: Yes (left wrist) Other/Comment: ABDOMINAL EXPLORITORY SX. - ANESTHESIA Hx Anesthesia: Yes Hx Anesthesia Reactions: No Hx Malignant Hyperthermia: No Meds Home Medications: Home Medication List Medication Instructions Recorded Confirmed Type Aspirin [Aspirin Chewable] 81 mg PO DAILY 01/03/17 Rx Insulin Human (NPH)/Regular 5 units SC QPM unit 01/03/17 Rx [Novolin 70/30 (70/30 units/ml) 10 ml] Insulin Human (NPH)/Regular 10 units SC QAM unit 01/03/17 Rx [Novolin 70/30 (70/30 units/ml) 10 ml] Metoprolol Tartrate [Lopressor] 25 mg PO BID tab 01/03/17 Rx Allergies/Adverse Reactions: Allergies Allergy/AdvReac Type Severity Reaction Status Date / Time acetaminophen [From Tylenol] Allergy Intermediate SWELLING Verified 01/02/17 11: 51 codeine Allergy Intermediate SWELLING Verified 01/02/17 11:51 Penicillins Allergy Intermediate SWELLING Verified 01/02/17 11:51 Results - Vital Signs Recent Vital Signs: Last Vital Signs Temp 98.6 F 01/03/17 07:15 Pulse 85 01/03/17 11:00 Resp 17 01/03/17 07:15 BP 152/73 H 01/03/17 10:12 Pulse Ox 99 01/03/17 07:15 - Labs Result Diagrams: 01/02/17 13:20 01/02/17 13:20 Assessment & Plan - Assessment and Plan (Free Text) Assessment: Chest pain r/p ACS troponin negative x 3 patient's pain is more epigastric in location and reproducible on palpation of epigastric region asa 81mg daily Prior cardiac work up negative Recommend out patient management Diabetes continue home regimen of insulin: NPH 5u QPM, NPH 10u QAM accuchecks ACHS Prophylactic measure lovenox 40mg sc daily zofran q6prn nausea pepcid 20mg PO BID
== END 2017-01-03 13:10 | disposition home or self-care (01) ==
LOC: C.ER 11:46 → C.9E 14:05 → C.6T 16:58
PROVIDERS: ADMIT Internal Medicine Pulmonary Disease; ATTEND Internal Medicine Pulmonary Disease
DX: R07.9 Chest pain, unspecified (principal); I10 Essential (primary) hypertension; E11.9 Type 2 diabetes mellitus without complications
CPT/HCPCS: 36415; 71010; 80048; 82948; 84484; 85025; 85610; 85730; 99285; G0378; J1650

== ENCOUNTER 2017-03-17 14:17 | Inpatient (IN) | payer MEDICAID ==
[2017-03-17 14:17] VITALS: BMI 15.1
--- NOTE | 2017-03-17 14:58 | C.PDOC ---
Time Seen by Provider: 03/17/17 14:43 Chief Complaint (Nursing): Back Pain Past Medical History Vital Signs: Last Vital Signs Temp 97.9 F 03/17/17 14:32 Pulse 78 03/17/17 14:32 Resp 20 03/17/17 14:32 BP 126/76 03/17/17 14:32 Pulse Ox 99 03/17/17 14:32 - Medical History PMH: CHF, Depression, Diabetes, Fractures (left 5th metacarpal), HTN, TIA (As per pt) Denies: Chronic Kidney Disease - [facility] Procedures APPLICATION OF SPLINT (11/03/13) CL FX REDUC-RADIUS/ULNA (12/31/13) CORONAR ARTERIOGR-2 CATH (05/15/14) INSPECTION OF LOWER INTESTINAL TRACT, ENDO (04/07/15) LEFT HEART CARDIAC CATH (05/15/14) LT HEART ANGIOCARDIOGRAM (05/15/14) OP RED-INT FIX RAD/ULNA (01/23/14) Family History: States: Unknown Family Hx - Social History Hx Tobacco Use: Yes (patient states she quite smoking 7 months ago. ) Hx Alcohol Use: No (once in a while,beer) Hx Substance Use: No - Immunization History Hx Tetanus Toxoid Vaccination: Yes Hx Influenza Vaccination: No Hx Pneumococcal Vaccination: Yes ED Course And Treatment O2 Sat by Pulse Oximetry: 99 Disposition - Disposition
--- NOTE | 2017-03-17 15:15 | C.PDOC ---
History Of Present Illness Patient is a 61 y/o female who presents to the ED with complaints of difficulty urinating and difficulty walking for the last two days. Patient reports little output upon urination and notes suprapubic fullness. Patient reports right leg weakness, stating "it just gives out"; chronic use of cane. Patient has Hx of smoking and similar episodes of symptoms years ago in which patient reports to have been told it was due to DM; patient admits previous symptoms improved after rehab. Admits to being compliant with medication. Denies fever. No other physical complaints at this time. new onset DIFFICULTY URINATING AND DIFFICULTY WALKING X 2 DAYS. PS WHEN TRIES TO URINATE "ONLY A LITTLE COMES OUT". CO SUPRAPUB FULLNESS. NEW ONSET DIFFICULTY WALKING DUE TO R LEG WEAKNESS "IT JUST GIVES OUT". CHRONIC USE OF CANE. PS HO PRIOR SIM EPISODE "YEARS AGO", "THEY TOLD ME WAS DUE TO MY DM". IMPROVED AFTER REHAB. COMPLIANT W MEDS NO FEVER. HO SMOKING PMD ELAMIR EXAM MILD DIST NONTOXIC HEENT NEG LUNGS CTA B/L NO W/R/R BACK NO FOCAL TEND AROM WO DIFF NEURO 4/5 RLE, 5/5 ALL OTHER EXTREM CV RRR REMAINDER NEG EXT LIMITED FULL RLE ELEVATION DUE TO POST LEG PAIN. ATRAUMA NO SWELL Time Seen by Provider: 03/17/17 14:43 Chief Complaint (Nursing): Back Pain History Per: Patient History/Exam Limitations: no limitations Onset/Duration Of Symptoms: Days (2 days) Current Symptoms Are (Timing): Still Present Recent travel outside of the [place] States: No Past Medical History Reviewed: Historical Data, Nursing Documentation, Vital Signs Vital Signs: Last Vital Signs Temp 97.9 F 03/17/17 14:32 Pulse 78 03/17/17 14:32 Resp 20 03/17/17 14:32 BP 126/76 03/17/17 14:32 Pulse Ox 99 03/17/17 17:16 - Medical History PMH: CHF, Depression, Diabetes, Fractures (left 5th metacarpal), HTN, TIA (As per pt) Denies: Chronic Kidney Disease Surgical History: No Surg Hx - [facility] Procedures APPLICATION OF SPLINT (11/03/13) CL FX REDUC-RADIUS/ULNA (12/31/13) CORONAR ARTERIOGR-2 CATH (05/15/14) INSPECTION OF LOWER INTESTINAL TRACT, ENDO (04/07/15) LEFT HEART CARDIAC CATH (05/15/14) LT HEART ANGIOCARDIOGRAM (05/15/14) OP RED-INT FIX RAD/ULNA (01/23/14) Family History: States: Unknown Family Hx - Social History Hx Tobacco Use: Yes (patient states she quite smoking 7 months ago. ) Hx Alcohol Use: No (once in a while,beer) Hx Substance Use: No - Immunization History Hx Tetanus Toxoid Vaccination: Yes Hx Influenza Vaccination: No Hx Pneumococcal Vaccination: Yes Review Of Systems Constitutional: Negative for: Fever Genitourinary: Positive for: Other (difficulty urinating) Physical Exam - Physical Exam Appears: Non-toxic, In Acute Distress (mild) Eye(s): bilateral: Normal Inspection Ear(s): Bilateral: Normal Nose: Normal Oral Mucosa: Moist Throat: Normal Chest: Symmetrical Cardiovascular: Rhythm Regular, No Murmur Respiratory: Normal Breath Sounds (bilaterally ), No Rales, No Rhonchi, No Wheezing Back: No CVA Tenderness, No Vertebral Tenderness, No Paraspinal Tenderness Extremity: Normal ROM (active without difficulty ), No Swelling Extremity: Left: Other (limited full RLE elevation due to posterior leg pain; no swelling), Right: Atraumatic, Other Neurological/Psych: Oriented x3, Normal Speech, Normal Cognition, Normal Motor ( 4/5 right lower extremity, 5/5 all other extremities) ED Course And Treatment - Laboratory Results Result Diagrams: 03/17/17 16:13 03/17/17 16:13 ECG: Interpreted By Wi ECG Rhythm: Sinus Rhythm ECG Interpretation: Abnormal Rate From EC (bpm) O2 Sat by Pulse Oximetry: 99 (room air) Pulse Ox Interpretation: Normal Interpretation Of Abnormal: septal infarct, age undetermined - Radiology CXR: Interpreted by Wi CXR Interpretation: Yes: No Acute Disease - CT Scan/US Head Other Rad Studies (CT/US): Interpreted By Wi CT/US Interpretation: IMPRESSION: 1. Chronic microvascular ischemic change. 2. Bilateral chronic thalamic lacunar infarcts. 3. Prominent mucosal opacification of the left mastoid air cells. 4. Persistent soft tissue density in the left middle ear fossa. This is of uncertain clinical etiology. This may represent an underlying otitis media and or cholesteatoma and or additional etiology. Clinical correlation. If focal nuerologic deficit persists, consider MRI. - Physician Consult Information Time Consulting Physician Contacted: 17:10 Physician Contacted: Orlando Velasquez Progress - Re-Evaluation Re-evaluation Note: 03/17/17 15:52 SP STRAIGHT CATH, 200 CC UO. ECHO REPORT 2017 REVIEWED. EF 60% 03/17/17 17:14 EXAM [facility] D/W DR VELASQUEZ. REQUESTS CT, WILL FU RESULTS - Data Reviewed Data Reviewed: Lab, Diagnostic imaging, EKG, Old records Medical Decision Making Medical Decision Making: Plan: * CT head * EKG * CXR * blood work * Urine culture * UA * Thoracic spine XR * LS Spine AP/lat XR Disposition Counseled Patient/Family Regarding: Studies Performed, Diagnosis - Disposition Disposition: HOSPITALIZED Disposition Time: 17:14 Condition: STABLE Forms: [facility] (Nauruan) - POA Present On Arrival: Falls Or Trauma - Clinical Impression Clinical Impression: Difficulty urinating, Difficulty walking, Upper back pain, Elevated bilirubin - Scribe Statement The provider has reviewed the documentation as recorded by the Scribe Goldie Chavez All medical record entries made by the Scribe were at my direction and personally dictated by me. I have reviewed the chart and agree that the record accurately reflects my personal performance of the history, physical exam, medical decision making, and the department course for this patient. I have also personally directed, reviewed, and agree with the discharge instructions and disposition. Decision To Admit - Pt Status Changed To: Hospital Disposition Of: Observation - . Bed Request Type: Regular Admitting Physician: Orlando Velasquez Patient Diagnosis: Difficulty urinating, Difficulty walking, Upper back pain, Elevated bilirubin
[2017-03-17] MEDS ORDERED: Sodium Chloride 0.9% 250 ML IV ONE (15:50)
[2017-03-17 15:52] LABS: RBC URINE < 1 /hpf (0-3); URINE BACTERIA RARE (<OCC); URINE BILIRUBIN NEGATIVE (NEGATIVE); URINE BLOOD NEGATIVE (NEGATIVE); URINE COLOR Amber (YELLOW); URINE GLUCOSE (UA) NORMAL (Normal); URINE KETONE NEGATIVE (NEGATIVE); URINE LEUKOCYTE ESTERASE NEG Leu/uL (Negative); URINE PROTEIN NEGATIVE (NEGATIVE); WBC URINE 2 /hpf (0-5)
[2017-03-17] MEDS ORDERED: Sodium Chloride 0.9% 500 ML IV ONE ×2 (15:54→16:47)
[2017-03-17] MEDS ORDERED: Sodium Chloride 0.9% 1,000 ML IV SCH (16:00)
[2017-03-17 16:17] LABS: BASO # 0.1 K/uL (0.0-0.2); BASO % 1.7 % (0.0-2.0); EOS # 0.1 K/uL (0.0-0.7); HEMATOCRIT 33.4 % (34.0-47.0); LYMPH % 19.4 % (20.0-40.0); MEAN CELL VOLUME 113.1 fL (81.0-99.0); MEAN CORPUSCULAR HEMOGLOBIN 38.1 pg (27.0-31.0); MEAN CORPUSCULAR HGB CONC 33.7 g/dL (33.0-37.0); MONO # 0.6 K/uL (0.0-0.8); MONO % 10.8 % (0.0-10.0); NRBC % 0.1 % (0.0-2.0); WHITE BLOOD COUNT 5.2 K/uL (4.8-10.8)
[2017-03-17 16:37] LABS: ALKALINE PHOSPHATASE 94 U/L (38-126); ALT/SGPT 80 U/L (9-52); AST/SGOT 104 U/L (14-36); BILIRUBIN,TOTAL 2.9 mg/dL (0.2-1.3); BLOOD UREA NITROGEN 8 mg/dL (7-17); CALCIUM 8.1 mg/dl (8.6-10.4); CARBON DIOXIDE 27 mmol/L (22-30); CHLORIDE 97 mmol/L (98-107); GFR AFRICAN-AMERICAN > 60; GLUCOSE,RANDOM 121 mg/dL (65-105); POTASSIUM 3.3 mmol/L (3.6-5.2); SODIUM 133 mmol/L (132-148)
--- NOTE | 2017-03-17 16:53 | CT ---
PROCEDURE: CT HEAD WITHOUT CONTRAST. HISTORY: DIFFICULTY WALKING COMPARISON: 04/07/2015 TECHNIQUE: Axial computed tomography images were obtained through the head/brain without intravenous contrast. Radiation dose: Total exam DLP = 953 mGy-cm. This CT exam was performed using one or more of the following dose reduction techniques: Automated exposure control, adjustment of the mA and/or kV according to patient size, and/or use of iterative reconstruction technique. FINDINGS: HEMORRHAGE: No intracranial hemorrhage. BRAIN: No mass effect or edema. Scattered focal lucencies in the subcortical and periventricular white matter suggestive for chronic microvascular ischemic change. Small bilateral thalamic lacunar infarcts; right greater than left. Small hypodensity seen at the lateral aspect of the inferior right cerebellum may represent some volume averaging with the adjacent CSF space. VENTRICLES: Unremarkable. No hydrocephalus. CALVARIUM: Small focal protruberance emanating at the anterior left frontal cranium measuring up to 8 millimeters, not significantly changed since the prior study. This is of uncertain clinical etiology and may represent a calcified sebaceous cyst of the left frontal scalp. PARANASAL SINUSES: Unremarkable as visualized. No significant inflammatory changes. MASTOID AIR CELLS: Prominent mucosal opacification of the left mastoid air cells. OTHER FINDINGS: Persistent soft tissue density in the left middle ear fossa. This is of uncertain clinical etiology. This may represent underlying otitis media and or cholesteatoma and or additional etiology. Clinical correlation. IMPRESSION: 1. Chronic microvascular ischemic change. 2. Bilateral chronic thalamic lacunar infarcts. 3. Prominent mucosal opacification of the left mastoid air cells. 4. Persistent soft tissue density in the left middle ear fossa. This is of uncertain clinical etiology. This may represent an underlying otitis media and or cholesteatoma and or additional etiology. Clinical correlation. If focal neurologic deficit persists, consider MRI.
[2017-03-17 16:56] LABS: ALB/GLOB RATIO 0.6 (1.0-2.1)
[2017-03-17 17:40] LABS: AMYLASE 44 U/L (30-110)
[2017-03-17] MEDS ORDERED: Iodixanol 320 MG/ML 100 ML BOTTLE IV ONE (17:46)
--- NOTE | 2017-03-17 17:48 | RAD ---
PROCEDURE: CHEST RADIOGRAPH, 1 VIEW HISTORY: Medical clearance COMPARISON: 11/30/2016 FINDINGS: LUNGS: Mild venous congestion. Bibasilar breast and nipple shadows. PLEURA: No pneumothorax or pleural fluid seen. CARDIOVASCULAR: Normal. OSSEOUS STRUCTURES: No significant abnormalities. VISUALIZED UPPER ABDOMEN: Normal. OTHER FINDINGS: None. IMPRESSION: Mild venous congestion. Bibasilar breast and nipple shadows.
--- NOTE | 2017-03-17 18:00 | RAD ---
Thoracic spine two views History: Back pain. Comparison: None available. Findings: Mild dextroscoliotic curvature of the upper thoracic and mild levoscoliotic curvature of the lower thoracic spine. Moderate compression deformity of the T12 vertebral body. Apparent moderate loss of height of the T8 vertebral body on the lateral view also suggestive for compression deformity. If there is concern for an acute pathologic fracture deformity, correlation with MRI is recommended. Mild nodularity at the left lung base may represent confluence of shadows with ribs and vessels. Lobulated calcific foci seen projecting over the right upper abdomen are of uncertain clinical etiology and may be related to gallbladder calculi versus pancreatic calcifications versus additional etiology. Few distended loops of small bowel in the upper abdomen. Impression: 1. Mild dextroscoliotic curvature of the upper thoracic and mild levoscoliotic curvature of the lower thoracic spine. Moderate compression deformity of the T12 vertebral body. Apparent moderate loss of height of the T8 vertebral body on the lateral view also suggestive for compression deformity. If there is concern for an acute pathologic fracture deformity, correlation with MRI is recommended. 2. Lobulated calcific foci seen projecting over the right upper abdomen are of uncertain clinical etiology and may be related to gallbladder calculi versus pancreatic calcifications versus additional etiology.
--- NOTE | 2017-03-17 18:13 | RAD ---
Lumbar spine three views History: Back pain. Comparison: None available. Findings: Moderate compression deformity of the T12 vertebral body. Correlation with MRI may be helpful to determine chronicity as well as any pathologic underlying lesion. Mild loss of height of the superior endplate of the L4 vertebral body. Mild retrolisthesis of L3 on L4 as well as L4 on L5. Lower level facet hypertrophy and sclerosis. Mild anterior osteophyte formation in the lumbar spine. Lobulated calcifications project the upper abdomen which may be related to gallbladder calcifications versus pancreatic calcifications versus additional etiology. Clinical correlation. Vascular calcifications in the aorta. Few mildly distended loops of small bowel. Impression: 1. Moderate compression deformity of the T12 vertebral body. Correlation with MRI may be helpful to determine chronicity as well as any pathologic underlying lesion. 2. Mild loss of height of the superior endplate of the L4 vertebral body. 3. Mild retrolisthesis of L3 on L4 as well as L4 on L5. 4. Lower level facet hypertrophy and sclerosis. 5. Mild anterior osteophyte formation in the lumbar spine. 6. Lobulated calcifications project the upper abdomen which may be related to gallbladder calcifications versus pancreatic calcifications versus additional etiology. Clinical correlation.
--- NOTE | 2017-03-17 19:44 | CT ---
EXAM: CT Abdomen and Pelvis With Intravenous Contrast EXAM DATE/TIME: Exam ordered 03/17/2017 5:14 PM CLINICAL HISTORY: 61 years old, female; Pain; Abdominal pain; Prior surgery; Surgery type: Cardiac cath; Patient HX: 8; Additional info: Elevated tb RO mass TECHNIQUE: Axial computed tomography images of the abdomen and pelvis with intravenous contrast. All CT scans at this facility use one or more dose reduction techniques, viz.: automated exposure control; ma/kV adjustment per patient size (including targeted exams where dose is matched to indication; i.e. head); or iterative reconstruction technique. Coronal and sagittal reformatted images were created and reviewed. CONTRAST: 100 mL of visipaque administered intravenously. COMPARISON: CT - ABD PELVIS W/O PO OR IV CONT 2015-12-01 16:08 FINDINGS: Lower thorax: Coarse linear opacities seen in the lingula. ABDOMEN: Liver: Small collateral vessels are noted in the gastrohepatic ligament Gallbladder and bile ducts: Unremarkable. No calcified stones. No ductal dilation. Pancreas: Coarse calcifications are noted in the pancreatic head and scattered along the body. There is dilatation of the pancreatic duct the maximum diameter of 8.2 mm in the pancreatic head. Hazy changes noted in the brisa-pancreatic fat Extending into the anterior pararenal space bilaterally but particularly on the left. Spleen: Unremarkable. No splenomegaly. Adrenals: Unremarkable. No mass. Kidneys and ureters: Unremarkable. No solid mass. No hydronephrosis. Stomach and bowel: Mildly dilated air and fluid-filled small bowel loops are noted in the abdomen. No mucosal thickening. Appendix: No findings to suggest acute appendicitis. PELVIS: Bladder: Unremarkable. No mass. Reproductive: Unremarkable as visualized. ABDOMEN and PELVIS: Intraperitoneal space: A small amount of ascites is seen in the pelvis. No free air. Bones/joints: There is a compression fracture of L4 with approximately 30% loss of height of the vertebral body. No retropulsed fractures are seen. There is a stable compression fracture at T12 with approximately 50% loss of height of the vertebral body. A compression fracture is also noted at T8. There is approximately 40-50% loss of height of the vertebral body. This area was not included on the previous CT scan. Soft tissues: Unremarkable. Vasculature: See above. Lymph nodes: Unremarkable. No enlarged lymph nodes. IMPRESSION: 1. Chronic calcific pancreatitis. Scattered lymph nodes and varices noted with in the peripancreatic fat. 2. Mildly dilated small bowel loops. This could represent an ileus or early partial small bowel obstruction. 3. Compression fractures at T8, T12 and L4. Fracture at L4 is new. The T8 vertebral body was not included on the previous CT scan. Its age is uncertain. T12 fracture is chronic
[2017-03-17] MEDS ORDERED: Pneumococcal 23-Valent Vaccine IM ONE (20:55)
[2017-03-17] MEDS: Potassium Ch 20mEq in D5-1/2NS 1,000 ML IV SCH (21:02)
[2017-03-17] MEDS: (Novolin 70/30) NPH/Regular 70/30 Units/ml 10 ml vial SC SCH (23:00)
[2017-03-17] MEDS: (Novolog) Insulin Aspart, Recombinant 100 u/ml 10 ml vial SC SCH (23:07)
[2017-03-18] MEDS: Potassium Ch 20mEq in D5-1/2NS 1,000 ML IV SCH ×3 (06:57→16:13)
[2017-03-18] MEDS: (Novolog) Insulin Aspart, Recombinant 100 u/ml 10 ml vial SC SCH ×4 (07:56→21:39)
[2017-03-18 08:00] LABS: BASO # 0.1 K/uL (0.0-0.2); BASO % 1.5 % (0.0-2.0); EOS # 0.1 K/uL (0.0-0.7); EOS % 2.6 % (0.0-4.0); HEMATOCRIT 28.3 % (34.0-47.0); LYMPH % 20.1 % (20.0-40.0); MEAN CELL VOLUME 113.7 fL (81.0-99.0); MEAN CORPUSCULAR HEMOGLOBIN 37.9 pg (27.0-31.0); MEAN CORPUSCULAR HGB CONC 33.3 g/dL (33.0-37.0); MEAN PLATELET VOLUME 9.3 fL (7.2-11.7); MONO # 0.4 K/uL (0.0-0.8); MONO % 8.5 % (0.0-10.0); NRBC % 0.3 % (0.0-2.0); RED CELL DISTRIBUTION WIDTH 14.3 % (11.5-14.5); WHITE BLOOD COUNT 4.9 K/uL (4.8-10.8)
[2017-03-18 08:33] LABS: ALB/GLOB RATIO 0.8 (1.0-2.1); ALKALINE PHOSPHATASE 84 U/L (38-126); ALT/SGPT 68 U/L (9-52); AST/SGOT 72 U/L (14-36); BILIRUBIN,TOTAL 2.2 mg/dL (0.2-1.3); BLOOD UREA NITROGEN 6 mg/dL (7-17); CALCIUM 7.4 mg/dl (8.6-10.4); CARBON DIOXIDE 23 mmol/L (22-30); CHLORIDE 98 mmol/L (98-107); GFR AFRICAN-AMERICAN > 60; GLUCOSE,RANDOM 137 mg/dL (65-105); POTASSIUM 3.1 mmol/L (3.6-5.2); SODIUM 129 mmol/L (132-148); TOTAL PROTEIN 5.5 g/dL (6.3-8.3)
[2017-03-18] MEDS: (Novolin 70/30) NPH/Regular 70/30 Units/ml 10 ml vial SC SCH ×2 (09:30→21:38)
[2017-03-18 11:41] LABS: INR 1.4
[2017-03-18 12:27] LABS: CA 19-9 < 1.4 U/mL (0-37)
--- NOTE | 2017-03-18 12:59 | PN ---
DATE: 03/17/2017 LOCATION: 364, bed B. SUBJECTIVE: This is a 61-year-old female, seen and examined in rounds initially for GI consultation on 03/17/2017 as reported by admitting MD. Reexamined again today with intermittent period of some abdominal pain, with suprapubic pain. The entire chart is reviewed including but not limited to the most recent lab and radiology study results, current and the previous medication list, current and the previous medical events, and the report of the official CAT scan of the abdomen and pelvis is seen. The patient does still have some complaint of also lower back pain. LABORATORY DATA: Today's lab showed blood glucose level of 168 and the patient reported to have elevated liver function test. PHYSICAL EXAMINATION: GENERAL: A 61-year-old female. VITAL SIGNS: Afebrile with pulse of 82, respiratory rate 20 to 22, blood pressure 130/74. HEENT: Showed pale dry oral mucoid membranes. Nonicteric sclerae. HEART: Positive S1 and S2. LUNGS: Few scattered crepitations. Decreased air entry at bases. ABDOMEN: Soft with slight distension. No mass or organomegaly. No rebound tenderness or guarding, but hypoactive bowel sounds. EXTREMITIES: Without significant clubbing or cyanosis. NEUROLOGIC: No reported new neurological deficits, sensory or motor. IMPRESSION: 1. Abnormal CAT scan of the abdomen and pelvis with possible chronic pancreatitis. 2. Known history of but not limited to diabetes mellitus, depression, hypertension, with congestive heart failure in the past. 3. Peptic ulcer disease. 4. Abnormal liver function tests, that could be alcohol-induced versus chemical hepatitis with red cellular injury. SUGGESTION: 1. Agree with your plan. 2. Hepatitis profile. 3. Cancer markers including CEA, CA 19-9 and alpha-fetoprotein. 4. Further evaluation to follow. Wicho Potter MD
--- NOTE | 2017-03-19 00:31 | CON ---
DATE: 03/17/[address] Wicho Potter to Dr. Orlando Michel MD I was called for GI consultation by the admitting medical staff. The patient is seen and fully examined on 03/17/2017 for GI consultation. The entire chart is reviewed including but not limited to the most recent lab and radiology study results, current and the previous medication list, current and the previous medical events, allergy to medication list as well as all the available current and previous medical records. HISTORY OF PRESENT ILLNESS: This is a 61-year-old female who was admitted to the hospital with recent history of difficulty urination, generalized weakness and malaise. Unable to walk for the last 2 to 3 days with poor oral intake with left lower extremity pain. No reported active bleeding. No reported chest pain, palpitation, or significant shortness of breath or change of bowel movement recently. PAST MEDICAL HISTORY: Including mainly, 1. Diabetes mellitus, hypertension with reported congestive heart failure before. 2. Depression. 3. Peptic ulcer disease. 4. Left first metacarpal fracture. FAMILY HISTORY: Unknown. SOCIAL HISTORY: Positive for cigarette smoking, quit about 7 months ago. Alcohol intake according to the patient on occasions. After being admitted to the hospital, the patient was found to low hematocrit of 33.4 with low platelets of 74, low potassium of 3.3. with blood glucose level of 121, mildly elevated. CURRENT MEDICATIONS: Medication list reviewed. ALLERGIES TO MEDICATION: UNCLEAR. The patient had CAT scan of the head which show bilateral chronic thalamic lacunar infarcts with chronic microvascular ischemic changes. PHYSICAL EXAMINATION GENERAL: A 61-year-old female, VITAL SIGNS: Afebrile with pulse of 76, respiratory rate 20 to 22 with blood pressure of 122/74. HEENT: Show pale, dry oral mucous membrane, nonicteric sclerae. LUNGS: She has got crepitation, decreased air entry at bases. LYMPH NODES: No lymphadenitis or lymphadenopathy.. HEART: Positive S1 and S2. ABDOMEN: Soft, generalized tenderness, mainly in the suprapubic area with distention. No mass or organomegaly. No rebound tenderness or guarding. RECTAL: The patient refused. EXTREMITIES: Slight lower extremity tenderness and evidence of muscle wasting syndrome bilaterally. No clubbing or cyanosis. NEUROLOGIC: No reported new neurological deficits, sensory, or motor. IMPRESSION: 1. Re-exacerbation of peptic ulcer disease. 2. Abnormal CAT scan of the head. 3. Diabetes mellitus with possible diabetic neuropathy. 4. Known history of hypertension, transient ischemic attack, lacunar infarction, congestive heart failure. 5. Thrombocytopenia of unclear etiology with electrolyte imbalance. SUGGESTIONS: 1. Agree with your plan. 2. Guaiac all the stool x3. 3. Antireflux measures. 4. Proton pump inhibitors. 5. Urology and Nephrology consult with ultrasound of the pelvis. 6. Further recommendation to follow with peripheral hyperalimentation, correcting underlying electrolyte imbalance. 7. Cancer markers to be kept in mind with repeat liver function test. Thank you for letting me participate in your patient's case management. We will follow up closely with you. Wicho Potter MD cc: Wicho Potter MD
[2017-03-19] MEDS: Potassium Ch 20mEq in D5-1/2NS 1,000 ML IV SCH ×3 (02:15→13:45)
--- NOTE | 2017-03-19 07:52 | CON ---
I was asked to evaluate a T12 compression fracture noted on a CT of the abdomen and pelvis, noted on a study performed today. Apparently, the radiologist did not compare the study to the previous film. The patient had the identical fracture seen on the identical study performed in 10/2014. There was no change in the configuration of this finding thus making this neither new nor consequential. Jeramie Jewell MD
[2017-03-19] MEDS: (Novolog) Insulin Aspart, Recombinant 100 u/ml 10 ml vial SC SCH ×4 (08:36→21:34)
--- NOTE | 2017-03-19 09:00 | CP.PCM.PN ---
Subjective - Date & Time of Evaluation Date of Evaluation: 03/19/17 Time of Evaluation: 09:00 - Subjective Subjective: Dr. Michel note: Patient is seen and evluated in room. She says she came to the hospital due to weakness in her legs and urinary rentention. Patient says she feels the urge to urinate but only urinates small amounts at a time. She says she does this frequently throughout the day. Objective - Vital Signs/Intake and Output Vital Signs (last 24 hours): Temp Pulse Resp BP Pulse Ox 97.7 F 82 20 113/73 96 03/19/17 08:27 03/19/17 08:27 03/19/17 08:27 03/19/17 08:27 03/19/17 08:27 Intake and Output: 03/19/17 03/19/17 06:59 18:59 Intake Total 2120 Output Total 600 Balance 1520 - Medications Medications: Current Medications Clonidine HCl (Catapres) 0.2 mg PO DAILY [facility] Last Admin: 03/18/17 09:30 Dose: Not Given Potassium Chloride/Dextrose/Sod Cl (Potassium Chl 20 Meq In D5-1/2ns) 1,000 mls @ 100 mls/hr IV .Q10H [facility] Last Admin: 03/19/17 04:28 Dose: 100 mls/hr Insulin Aspart (Novolog) 0 unit SC ACHS [facility] PRN Reason: Protocol Last Admin: 03/19/17 08:36 Dose: 2 unit Insulin Human Isoph/Insulin Regular (Novolin 70/30 (70/30 Units/Ml) 10 Ml) 10 units SC QAM [facility] Last Admin: 03/18/17 09:30 Dose: Not Given Insulin Human Isoph/Insulin Regular (Novolin 70/30 (70/30 Units/Ml) 10 Ml) 5 units SC HS [facility] Last Admin: 03/18/17 21:38 Dose: 5 units Ketorolac Tromethamine (Toradol) 30 mg IVP Q8 PRN PRN Reason: Pain, moderate (4-7) Last Admin: 03/19/17 04:32 Dose: 30 mg - Labs Labs: 03/18/17 07:42 03/18/17 07:42 PT 16.3 SECONDS (9.7-12.2) H 03/18/17 11:28 INR 1.4 03/18/17 11:28 APTT 39 SECONDS (21-34) H 03/18/17 11:28 - Constitutional Appears: Non-toxic, No Acute Distress, Older Than Stated Age - Eye Exam Eye Exam: Scleral icterus - Respiratory Exam Respiratory Exam: Clear to Ausculation Bilateral. absent: Rales, Rhonchi, Wheezes - Cardiovascular Exam Cardiovascular Exam: REGULAR RHYTHM, RRR, +S1, +S2. absent: Gallop, Rubs - GI/Abdominal Exam GI & Abdominal Exam: Soft, Normal Bowel Sounds. absent: Tenderness - Extremities Exam Extremities Exam: Normal Inspection. absent: Pedal Edema - Back Exam Back Exam: NORMAL INSPECTION - Psychiatric Exam Psychiatric exam: Normal Affect, Normal Mood Assessment and Plan (1) Difficulty urinating Assessment & Plan: Will try to get a post void residual tomorrow. Status: Acute (2) UTI (urinary tract infection) Assessment & Plan: ESBL E. Coli in urine culture. Dr. Dos Santos consulted. Patient started on Tigecye 50mg Q12H after a loading dose of 100mg. Status: Acute (3) Alcohol abuse Assessment & Plan: thiamine and folic acid, replace her potassium and mag today. Status: Chronic (4) Thrombocytopenia Assessment & Plan: most likely secondary to etoh abuse Status: Acute (5) Diabetes Assessment & Plan: sliding scale and her Novolin 70/30 5 units HS and 10 units AM Status: Chronic (6) Prophylactic measure Assessment & Plan: hold VTE due to low plt count protonix and SCDs for now Status: Acute
[2017-03-19 09:57] LABS: BASO # 0.1 K/uL (0.0-0.2); BASO % 1.2 % (0.0-2.0); EOS # 0.1 K/uL (0.0-0.7); EOS % 2.5 % (0.0-4.0); HEMATOCRIT 27.7 % (34.0-47.0); LYMPH # 0.8 K/uL (1.0-4.3); LYMPH % 15.3 % (20.0-40.0); MEAN CELL VOLUME 114.2 fL (81.0-99.0); MEAN CORPUSCULAR HEMOGLOBIN 38.3 pg (27.0-31.0); MEAN CORPUSCULAR HGB CONC 33.5 g/dL (33.0-37.0); MEAN PLATELET VOLUME 9.5 fL (7.2-11.7); MONO # 0.4 K/uL (0.0-0.8); MONO % 6.7 % (0.0-10.0); NRBC % 0.1 % (0.0-2.0); RED CELL DISTRIBUTION WIDTH 13.8 % (11.5-14.5); WHITE BLOOD COUNT 5.3 K/uL (4.8-10.8)
[2017-03-19] MEDS ORDERED: Tigecycline 100 MG in Dextrose 5% In Water 100 ML IVPB ONE (10:02)
[2017-03-19 10:10] LABS: ALB/GLOB RATIO 0.7 (1.0-2.1); ALKALINE PHOSPHATASE 86 U/L (38-126); ALT/SGPT 63 U/L (9-52); AST/SGOT 64 U/L (14-36); BILIRUBIN,TOTAL 1.7 mg/dL (0.2-1.3); BLOOD UREA NITROGEN 8 mg/dL (7-17); CALCIUM 7.8 mg/dl (8.6-10.4); CARBON DIOXIDE 22 mmol/L (22-30); CHLORIDE 102 mmol/L (98-107); GFR AFRICAN-AMERICAN > 60; GLUCOSE,RANDOM 140 mg/dL (65-105); PHOSPHOROUS 1.9 mg/dL (2.5-4.5); SODIUM 128 mmol/L (132-148); TOTAL PROTEIN 5.1 g/dL (6.3-8.3)
[2017-03-19] MEDS: Magnesium Sulfate 1 gm in D5W 1 GM/100 ML BAG IVPB SCH ×4 (11:37→17:36)
[2017-03-19] MEDS: (Novolin 70/30) NPH/Regular 70/30 Units/ml 10 ml vial SC SCH ×2 (11:39→21:35)
--- NOTE | 2017-03-19 12:23 | CP.PCM.CON ---
History of Present Illness - History of Present Illness History of Present Illness: 61 y/o female who presents to the ED with complaints of difficulty urinating and difficulty walking for the last two days. Patient reports little output upon urination and notes suprapubic fullness. Patient reports right leg weakness , stating "it just gives out"; chronic use of cane. Patient has Hx of smoking and similar episodes of symptoms years ago in which patient reports to have been told it was due to DM; found to haver multiple compression fxs of spine Neurosurg on board referred for id eval / antibiotic management of UTI in a PCN allergic pt - Medical History PMH: CHF, Depression, Diabetes, Fractures (left 5th metacarpal), HTN, TIA (As per pt) Denies: Chronic Kidney Disease Surgical History: No Surg Hx - [facility] Procedures APPLICATION OF SPLINT (11/03/13) CL FX REDUC-RADIUS/ULNA (12/31/13) CORONAR ARTERIOGR-2 CATH (05/15/14) INSPECTION OF LOWER INTESTINAL TRACT, ENDO (04/07/15) LEFT HEART CARDIAC CATH (05/15/14) LT HEART ANGIOCARDIOGRAM (05/15/14) OP RED-INT FIX RAD/ULNA (01/23/14) Review of Systems - Review of Systems All systems: reviewed and no additional remarkable complaints except - Constitutional Constitutional: As Per HPI - EENT Eyes: absent: As Per HPI, Blind Spots, Blurred Vision, Change in Vision, Decreased Night Vision, Diplopia, Discharge, Dry Eye, Exophthalmos, Floaters, Irritation, Itchy Eyes, Loss of Peripheral Vision, Pain, Photophobia, Requires Corrective Lenses, Sees Flashes, Spots in Vision, Tunnel Vision, Other Visual Disturbances, Loss of Vision, Other Ears: absent: As Per HPI, Decreased Hearing, Ear Discharge, Ear Pain, Tinnitus, Abnormal Hearing, Disequilibrium, Dizziness, Other Nose/Mouth/Throat: absent: As Per HPI, Epistaxis, Nasal Congestion, Nasal Discharge, Nasal Obstruction, Nasal Trauma, Nose Pain, Post Nasal Drip, Sinus Pain, Sinus Pressure, Bleeding Gums, Change in Voice, Dental Pain, Dry Mouth, Dysphagia, Halitosis, Hoarsness, Lip Swelling, Mouth Lesions, Mouth Pain, Odynophagia, Sore Throat, Throat Swelling, Tongue Swelling, Facial Pain, Neck Pain, Neck Mass, Other - Breasts Breasts: absent: As Per HPI, Change in Shape, Mass, Pain, Nipple Discharge, Nipple Inversion, Skin Changes, Swelling, Other - Cardiovascular Cardiovascular: absent: As Per HPI, Acrocyanosis, Chest Pain, Chest Pain at Rest , Chest Pain with Activity, Claudication, Diaphoresis, Dyspnea, Dyspnea on Exertion, Edema, Irregular Heart Rhythm, Pain Radiating to Arm/Neck/Jaw, Leg Edema, Leg Ulcers, Lightheadedness, Orthopnea, Palpitations, Paroxysmal Nocturnal Dyspnea, Pedal Edema, Radiating Pain, Rapid Heart Rate, Slow Heart Rate, Syncope, Other - Respiratory Respiratory: absent: As Per HPI, Cough, Dyspnea, Hemoptysis, Dyspnea on Exertion , Wheezing, Snoring, Stridor, Pain on Inspiration, Chest Congestion, Excessive Mucous Production, Change in Mucous Color, Pain with Coughing, Other - Gastrointestinal Gastrointestinal: absent: As Per HPI, Abdominal Pain, Belching, Bloating, Change in Bowel Habits, Change in Stool Character, Coffee Ground Emesis, Constipation, Cramping, Diarrhea, Dyspepsia, Dysphagia, Early Satiety, Excessive Flatus, Fecal Incontinence, Heartburn, Hematemesis, Hematochezia, Loose Stools, Melena, Nausea, Odynophagia, Temesmus, Vomiting, Other - Genitourinary Genitourinary: As Per HPI, Urinary Frequency, Urinary Hesitance, Urinary Urgency , Voiding Freq/Small Amts - Reproductive: Female Reproductive:Female: absent: As Per HPI, Amenorrhea, Amenorrhea/ Control, Currently Menstual, Cycle <21 Days, Cycle >35 Days, Cycle Variable, Menses 1-7 Days, Menses >/= 8 Days, Menses Variable, Cycle > 4 Weeks Between, No Menses for 6 Months, Heavy Menses, Light Menses, Normal Menses, Spotting Between Cycles , S/P Hysterectomy, Menopausal, Post Menopausal, Premenarche, Abnormal Vaginal Bleeding, Dysmenorrhea, Dyspareunia, Genital Lesions, Genital Pruritis, Pelvic Pain, Prolapse Symptoms, Sexual Dysfunction, Vaginal Discharge, Vaginal Dryness , Vaginal Odor, Vaginal Pruritis, Other - Menstruation Menstruation: absent: As Per HPI, Amenorrhea, Amenorrhea/ Control, Currently Menstual, Cycle <21 Days, Cycle >35 Days, Cycle Variable, Menses 1-7 Days, Menses >/= 8 Days, Menses Variable, Cycle > 4 Weeks Between, No Menses for 6 Months, Heavy Menses, Light Menses, Normal Menses, Spotting Between Cycles , S/P Hysterectomy, Menopausal, Post Menopausal, Premenarche, Abnormal Vaginal Bleeding, Dysmenorrhea, Other - Musculoskeletal Musculoskeletal: As Per HPI, Arthralgias, Radiating Pain into Limb - Integumentary Integumentary: absent: As Per HPI, Acne, Alopecia, Bleeding Lesions, Change in Hair, Change in Nails, Change in Pigmentation, Changing Lesions, Dry Skin, Erythema, Furuncle, Hirsutism, Lesions, New Lesions, Non-Healing Lesions, Photosensitivity, Pruritus, Rash, Skin Pain, Skin Ulcer, Sores, Striae, Swelling , Unusual Bruising, Wounds, Jaundice, Other - Neurological Neurological: absent: As Per HPI, Abnormal Gait, Abnormal Hearing, Abnormal Movements, Abnormal Speech, Behavioral Changes, Burning Sensations, Confusion, Convulsions, Disequilibrium, Dizziness, Numbness, Focal Weakness, Frequent Falls , Headaches, Lack of Coordination, Loss of Vision, Memory Loss, Paresthesias, Radicular Pain, Restless Legs, Sensory Deficit, Syncope, Tingling, Tremor, Vertigo, Weakness, Other Visual Disturbances, Other - Psychiatric Psychiatric: absent: As Per HPI, Abnormal Sleep Pattern, Anhedonia, Anxiety, Auditory Hallucinations, Behavioral Changes, Change in Appetite, Change in Libido, Confusion, Depression, Difficulty Concentrating, Hallucinations, Homicidal Ideation, Hopelessness, Irritability, Memory Loss, Mood Swings, Panic Attacks, Paranoia, Suicidal Ideation, Visual Hallucinations, Tactile Hallucinations, Other - Endocrine Endocrine: absent: As Per HPI, Change in Body Appearance, Change in Libido, Cold Intolorance, Deepening of Voice, Excessive Sweating, Fatigue, Flushing, Heat Intolorance, Increase in Ring/Shoe/Hat Size, Palpitations, Polydipsia, Polyphagia, Polyuria, Other - Hematologic/Lymphatic Hematologic: absent: As Per HPI, Easy Bleeding, Easy Bruising, Lymphadenopathy, Other Past Patient History - Infectious Disease Hx of Infectious Diseases: None - Past Medical History & Family History Past Medical History?: Yes - Past Social History Smoking Status: Former Smoker - CARDIAC Hx Congestive Heart Failure: Yes Hx Hypertension: Yes - PULMONARY Hx Respiratory Disorders: No - NEUROLOGICAL Hx Transient Ischemic Attacks (TIA): Yes (As per pt) - HEENT Hx HEENT Problems: No - RENAL Hx Chronic Kidney Disease: No - ENDOCRINE/METABOLIC Hx Diabetes Mellitus Type 1: Yes - HEMATOLOGICAL/ONCOLOGICAL Hx Blood Disorders: Yes Hx Anemia: Yes Hx Blood Transfusions: Yes - INTEGUMENTARY Hx Dermatological Problems: No - MUSCULOSKELETAL/RHEUMATOLOGICAL Hx Falls: Yes Hx Fractures: Yes (left 5th metacarpal) - GASTROINTESTINAL Hx Gastrointestinal Disorders: No - GENITOURINARY/GYNECOLOGICAL Hx Genitourinary Disorders: No - PSYCHIATRIC Hx Depression: Yes Hx Substance Use: No - SURGICAL HISTORY Hx Surgeries: Yes Hx Angiogram: Yes (Lt Hrt Angiocardiogram 04/2014) Hx Cardiac Catheterization: Yes (Lt hrt Cardiac cath 04/2014) Hx Orthopedic Surgery: Yes (left wrist) Other/Comment: ABDOMINAL EXPLORITORY SX. - ANESTHESIA Hx Anesthesia: Yes Hx Anesthesia Reactions: No Hx Malignant Hyperthermia: No Meds Allergies/Adverse Reactions: Allergies Allergy/AdvReac Type Severity Reaction Status Date / Time acetaminophen [From Tylenol] Allergy Intermediate SWELLING Verified 03/17/17 14: 32 codeine Allergy Intermediate SWELLING Verified 03/17/17 14:32 Penicillins Allergy Intermediate SWELLING Verified 03/17/17 14:32 - Medications Medications: Current Medications Clonidine HCl (Catapres) 0.2 mg PO DAILY [facility] Last Admin: 03/19/17 11:38 Dose: Not Given Potassium Chloride/Dextrose/Sod Cl (Potassium Chl 20 Meq In D5-1/2ns) 1,000 mls @ 100 mls/hr IV .Q10H [facility] Last Admin: 03/19/17 04:28 Dose: 100 mls/hr Tigecycline 50 mg/ Sodium (Chloride) 100 mls @ 100 mls/hr IVPB Q12H [place] Magnesium Sulfate/Dextrose (Magnesium Sulfate 1 Gm/100 Ml D5w) 1 gm in 100 mls @ 100 mls/hr IVPB Q1H [facility] Stop: 03/19/17 14:44 Last Admin: 03/19/17 11:37 Dose: 100 mls/hr Insulin Aspart (Novolog) 0 unit SC ACHS [place] PRN Reason: Protocol Last Admin: 03/19/17 11:39 Dose: 3 unit Insulin Human Isoph/Insulin Regular (Novolin 70/30 (70/30 Units/Ml) 10 Ml) 10 units SC QAM [facility] Last Admin: 03/19/17 11:39 Dose: 10 units Insulin Human Isoph/Insulin Regular (Novolin 70/30 (70/30 Units/Ml) 10 Ml) 5 units SC HS [place] Last Admin: 03/18/17 21:38 Dose: 5 units Ketorolac Tromethamine (Toradol) 30 mg IVP Q8 PRN PRN Reason: Pain, moderate (4-7) Last Admin: 03/19/17 04:32 Dose: 30 mg Physical Exam - Constitutional Appears: Non-toxic, Cachectic, Chronically Ill - Head Exam Head Exam: NORMOCEPHALIC - Eye Exam Eye Exam: PERRL. absent: Scleral icterus - ENT Exam ENT Exam: Mucous Membranes Dry, Normal External Ear Exam - Neck Exam Neck exam: Negative for: Lymphadenopathy - Respiratory Exam Respiratory Exam: Decreased Breath Sounds, Clear to Auscultation Bilateral - Cardiovascular Exam Cardiovascular Exam: REGULAR RHYTHM, +S1, +S2 - GI/Abdominal Exam GI & Abdominal Exam: Diminished Bowel Sounds, Soft. absent: Tenderness - Rectal Exam Rectal Exam: Deferred - Exam Exam: NORMAL INSPECTION - Extremities Exam Extremities exam: Negative for: calf tenderness, pedal edema, tenderness, pedal pulses present - Back Exam Back exam: absent: CVA tenderness (L), CVA tenderness (R) - Neurological Exam Neurological exam: Alert, CN II-XII Intact, Motor Sensory Deficit, Oriented x3 - Psychiatric Exam Psychiatric exam: Depressed - Skin Skin Exam: Dry Results - Vital Signs Recent Vital Signs: Last Vital Signs Temp 97.7 F 03/19/17 08:27 Pulse 82 03/19/17 08:27 Resp 20 03/19/17 08:27 BP 113/73 03/19/17 08:27 Pulse Ox 96 03/19/17 08:27 - Labs Result Diagrams: 03/19/17 09:44 03/19/17 09:44 Labs: Laboratory Results - last 24 hr 03/18/17 03/18/17 03/18/17 11:28 11:28 16:23 WBC RBC Hgb Hct MCV MCH MCHC RDW Plt Count MPV Neut % (Auto) Lymph % (Auto) [place] % (Auto) Eos % (Auto) Baso % (Auto) Neut # Lymph # [place] # Eos # Baso # Sodium Potassium Chloride Carbon Dioxide Anion Gap BUN Creatinine Est GFR ( Amer) Est GFR (Non-Af Amer) POC Glucose (mg/dL) 110 Random Glucose Calcium Phosphorus Magnesium Total Bilirubin AST ALT Alkaline Phosphatase Total Protein Albumin Globulin Albumin/Globulin Ratio Alpha Fetoprotein 3.4 Carcinoembryonic Ag 40.0 H CA 19-9 Antigen < 1.4 CA 125 Antigen 29.5 Hepatitis A IgM Ab Hep Bs Antigen Hep B Core IgM Ab Hepatitis C Antibody 03/18/17 03/19/17 03/19/17 20:49 01:35 06:59 WBC RBC Hgb Hct MCV MCH MCHC RDW Plt Count MPV Neut % (Auto) Lymph % (Auto) [place] % (Auto) Eos % (Auto) Baso % (Auto) Neut # Lymph # [place] # Eos # Baso # Sodium Potassium Chloride Carbon Dioxide Anion Gap BUN Creatinine Est GFR ( Amer) Est GFR (Non-Af Amer) POC Glucose (mg/dL) 379 H 195 H Random Glucose Calcium Phosphorus Magnesium Total Bilirubin AST ALT Alkaline Phosphatase Total Protein Albumin Globulin Albumin/Globulin Ratio Alpha Fetoprotein Carcinoembryonic Ag CA 19-9 Antigen CA 125 Antigen Hepatitis A IgM Ab Negative Hep Bs Antigen Negative Hep B Core IgM Ab Negative Hepatitis C Antibody Negative 03/19/17 03/19/17 03/19/17 07:36 09:44 09:44 WBC 5.3 RBC 2.42 L Hgb 9.3 L Hct 27.7 L MCV 114.2 H MCH 38.3 H MCHC 33.5 RDW 13.8 Plt Count 70 L MPV 9.5 Neut % (Auto) 74.3 Lymph % (Auto) 15.[address] [place] % (Auto) 6.7 Eos % (Auto) 2.5 Baso % (Auto) 1.2 Neut # 3.9 Lymph # 0.[address] [place] # 0.4 Eos # 0.1 Baso # 0.1 Sodium 128 L Potassium 4.0 Chloride 102 Carbon Dioxide 22 Anion Gap 9 L BUN 8 Creatinine 0.6 L Est GFR ( Amer) > 60 Est GFR (Non-Af Amer) > 60 POC Glucose (mg/dL) 230 H Random Glucose 140 H Calcium 7.8 L Phosphorus 1.9 L Magnesium 1.0 L* Total Bilirubin 1.7 H AST 64 H ALT 63 H Alkaline Phosphatase 86 Total Protein 5.1 L Albumin 2.2 L Globulin 2.9 Albumin/Globulin Ratio 0.7 L Alpha Fetoprotein Carcinoembryonic Ag CA 19-9 Antigen CA 125 Antigen Hepatitis A IgM Ab Hep Bs Antigen Hep B Core IgM Ab Hepatitis C Antibody 03/19/17 11:27 WBC RBC Hgb Hct MCV MCH MCHC RDW Plt Count MPV Neut % (Auto) Lymph % (Auto) [place] % (Auto) Eos % (Auto) Baso % (Auto) Neut # Lymph # [place] # Eos # Baso # Sodium Potassium Chloride Carbon Dioxide Anion Gap BUN Creatinine Est GFR ( Amer) Est GFR (Non-Af Amer) POC Glucose (mg/dL) 221 H Random Glucose Calcium Phosphorus Magnesium Total Bilirubin AST ALT Alkaline Phosphatase Total Protein Albumin Globulin Albumin/Globulin Ratio Alpha Fetoprotein Carcinoembryonic Ag CA 19-9 Antigen CA 125 Antigen Hepatitis A IgM Ab Hep Bs Antigen Hep B Core IgM Ab Hepatitis C Antibody Assessment & Plan - Assessment and Plan (Free Text) Assessment: elderly female with hx DM and ETOH use r/o neurogenic bladder- no evidence of urosepsis ? UTI If blood cultures neg can swith to macrobid Neurosurg eval for possible SCC r/o occult malignancy
--- NOTE | 2017-03-19 13:46 | US ---
Abdominal ultrasound History: Elevated liver enzymes. Urinary retention. Comparison: CT scan dated 03/17/2017 Technique: Real-time sonography was performed through the abdomen. Findings: Liver: 13 centimeters in length. Increased echogenicity of the hepatic parenchymal cortex suggestive for fatty infiltration versus hepatic parenchymal disease. Clinical correlation. Upper abdominal ascites noted. Gallbladder: Thick-walled measuring up to 6.5 millimeters. Associated gallbladder wall edema with a suggestion of pericholecystic fluid. No gross calculi or sludge. Negative sonographic Nicole's sign. Common bile duct measures 3.7 millimeters, within normal limits. Limited visualization of the pancreas demonstrate dilatation of the pancreatic duct up to 8 millimeters with some scattered echogenic calcifications consistent with chronic pancreatitis changes noted on CT scan. Pancreatic head and tail were not well visualized. Spleen measures 8.9 centimeters in length, within normal limits. Visualized aorta and IVC are preserved. Right kidney: 11.1 x 4.6 x 4.9 centimeters. Increased echogenicity of the renal parenchymal cortex suggestive for medical renal disease. No calculi or hydronephrosis. Left Kidney: 11.3 x 4.8 x 5.0 centimeters. No calculi or hydronephrosis. Increased echogenicity of the renal parenchymal cortex suggestive for medical renal disease. Impression: 1. Upper abdominal ascites. 2. Thickened and edematous gallbladder wall measuring up to 6.5 millimeters with associated pericholecystic fluid. No calculi or sludge. Negative sonographic Nicole's sign. If there is concern for acalculous cholecystitis, correlation with nuclear medicine study may be helpful if clinically indicated. 3. Increased echogenicity of the hepatic parenchymal cortex suggestive for fatty infiltration versus hepatic parenchymal disease. Clinical correlation. 4. Limited visualization of the pancreas reveal changes consistent with chronic pancreatitis is revealed on CT scan. Pancreatic head and tail were not well visualized. Please refer to CT report for better evaluation of the pancreas. 5. Increased echogenicity of the bilateral renal parenchymal cortices suggestive for medical renal disease.
--- NOTE | 2017-03-19 14:47 | PN ---
LOCATION: 364, bed B. SUBJECTIVE: This is a 61-year-old female, seen and examined in rounds without significant clinical changes or reported active bleeding. The entire chart is reviewed including but not limited to the most recent lab and radiology study results, current and the previous medication list, current and the previous medical events. Today's lab showed hemoglobin 9.3 with hematocrit 27.7 with thrombocytopenia of 17. Sodium is still low at 128 with blood glucose level 140 with low calcium of 7.8, low phosphorus 199, and low magnesium 1.0 with mildly elevated total bilirubin of 1.7, increased AST 364, ALT 263 with low albumin of 2.2. Again, the patient's abdominal and pelvic CAT scan report is seen with evidence of chronic calcified pancreatitis and small amount of ascites. PHYSICAL EXAMINATION: GENERAL: A 61-year-old female. VITAL SIGNS: Afebrile with pulse of 80, respiratory rate 20 to 22 with blood pressure 120/76. HEENT: Showed pale, dry mucoid membranes. Nonicteric sclerae. LUNGS: Few scattered crepitations. Decreased air entry at bases. HEART: Positive S1 and S2. ABDOMEN: Soft. Bowel sounds are present with slight generalized tenderness. No mass or organomegaly. No rebound tenderness or guarding. EXTREMITIES: With evidence of muscle wasting syndrome and lower extremities edematous changes. NEUROLOGIC: No reported new neurological deficits, sensory or motor. IMPRESSION: 1. Electrolyte imbalance. 2. Abnormal CAT scan of the abdomen and pelvis. 3. Evidence of chronic pancreatitis. 4. Known history of depression, hypertension, diabetes mellitus as well as congestive heart failure in the past. 5. Re-exacerbation peptic ulcer disease. 6. Abnormal liver function tests with a possibility of chemical hepatitis versus viral hepatitis, ruled in or out. SUGGESTION: 1. Agree with your plan. 2. Hepatitis profile. 3. Correct any underlying coagulopathy. 4. Due to the patient's anemia, endoscopic evaluation of the GI tract to be kept in mind, she refused for now. Wicho Potter MD cc: Wicho Potter MD
[2017-03-19 15:48] LABS: IRON 22 ug/dL (37-170)
[2017-03-19 17:00] LABS: FOLATE 7.5 ng/mL
[2017-03-19] MEDS ORDERED: Magnesium Sulfate 1 gm in D5W 1 GM/100 ML BAG IVPB SCH (17:00)
--- NOTE | 2017-03-19 17:18 | CARD ---
APPROVED REPORT EKG Measurement Heart [id number] <Conclusion> Normal sinus rhythm Poor R wave progression Abnormal ECG
[2017-03-19] MEDS: Ferric Sodium Gluconat Complex 62.5 mg/5 ml Vial IVPB SCH (17:35)
[2017-03-19] MEDS: Pantoprazole 40 mg EC Tab PO SCH (17:43)
--- NOTE | 2017-03-20 07:17 | HP ---
HISTORY OF PRESENT ILLNESS: Ms. Jones is a 61-year-old female was admitted to hospital with chief complaint of weakness, fatigue, tiredness, nausea, and back pain. The patient had elevated bilirubin. The patient is markedly dehydrated while admit to the hospital. PHYSICAL EXAMINATION: GENERAL: Patient is awake, alert and oriented. VITAL SIGNS: Temperature 98, pulse 90. HEENT: Within normal limits. NECK: Supple. CHEST: Symmetrical. HEART: Regular. ABDOMEN: Soft. EXTREMITIES: No edema. Patient suffers from sepsis, dehydration. Patient on bedrest, IV antibiotics, supportive care. Orlando Michel MD
[2017-03-20] MEDS: (Novolog) Insulin Aspart, Recombinant 100 u/ml 10 ml vial SC SCH ×4 (09:07→21:34)
[2017-03-20] MEDS ORDERED: Influenza Vaccine 60 mcg/0.5 mL SYR (4YR UP) IM ONE (10:00)
[2017-03-20] MEDS: Potassium Ch 20mEq in D5-1/2NS 1,000 ML IV SCH (10:16)
[2017-03-20] MEDS: Pantoprazole 40 mg EC Tab PO SCH (10:16)
[2017-03-20] MEDS: (Novolin 70/30) NPH/Regular 70/30 Units/ml 10 ml vial SC SCH ×2 (10:17→21:33)
[2017-03-20] MEDS: Ferric Sodium Gluconat Complex 62.5 mg/5 ml Vial IVPB SCH (10:24)
[2017-03-20 10:30] LABS: BASO # 0.1 K/uL (0.0-0.2); BASO % 1.9 % (0.0-2.0); EOS # 0.2 K/uL (0.0-0.7); EOS % 3.1 % (0.0-4.0); LYMPH # 1.2 K/uL (1.0-4.3); LYMPH % 18.7 % (20.0-40.0); MEAN CELL VOLUME 114.5 fL (81.0-99.0); MEAN CORPUSCULAR HEMOGLOBIN 38.4 pg (27.0-31.0); MEAN CORPUSCULAR HGB CONC 33.6 g/dL (33.0-37.0); MEAN PLATELET VOLUME 9.9 fL (7.2-11.7); MONO # 0.7 K/uL (0.0-0.8); MONO % 11.2 % (0.0-10.0); RED CELL DISTRIBUTION WIDTH 14.1 % (11.5-14.5); WHITE BLOOD COUNT 6.4 K/uL (4.8-10.8)
[2017-03-20 11:19] LABS: ALB/GLOB RATIO 0.7 (1.0-2.1); ALKALINE PHOSPHATASE 77 U/L (38-126); ALT/SGPT 66 U/L (9-52); AST/SGOT 63 U/L (14-36); BILIRUBIN,TOTAL 1.5 mg/dL (0.2-1.3); BLOOD UREA NITROGEN 11 mg/dL (7-17); CALCIUM 7.3 mg/dl (8.6-10.4); CARBON DIOXIDE 21 mmol/L (22-30); CHLORIDE 103 mmol/L (98-107); GFR AFRICAN-AMERICAN > 60; GLUCOSE,RANDOM 84 mg/dL (65-105); MAGNESIUM 1.8 mg/dL (1.6-2.3); PHOSPHOROUS 2.4 mg/dL (2.5-4.5); SODIUM 130 mmol/L (132-148)
--- NOTE | 2017-03-20 11:32 | CP.PCM.PN ---
Subjective - Date & Time of Evaluation Date of Evaluation: 03/20/17 Time of Evaluation: 07:00 - Subjective Subjective: afebrile on IV rx Objective - Vital Signs/Intake and Output Vital Signs (last 24 hours): Temp Pulse Resp BP Pulse Ox 97.9 F 81 18 104/68 96 03/20/17 09:49 03/20/17 09:49 03/20/17 09:49 03/20/17 09:49 03/20/17 09:49 Intake and Output: 03/20/17 03/20/17 06:59 18:59 Intake Total 1150 900 Balance 1150 900 - Medications Medications: Current Medications Clonidine HCl (Catapres) 0.2 mg PO DAILY COUNTS [facility]CLUDE 234 BEDS AT THE [facility] Last Admin: 03/20/17 10:16 Dose: 0.2 mg Ferric Sodium Gluconate Complex (Ferrlecit) 125 mg IVPB DAILY COUNTS INCLUDE 234 BEDS AT THE [facility] Stop: 03/22/17 17:01 Last Admin: 03/20/17 10:24 Dose: 125 mg Potassium Chloride/Dextrose/Sod Cl (Potassium Chl 20 Meq In D5-1/2ns) 1,000 mls @ 100 mls/hr IV .Q10H COUNTS INCLUDE 234 BEDS AT THE [facility] Last Admin: 03/20/17 10:16 Dose: 100 mls/hr Tigecycline 50 mg/ Sodium (Chloride) 50 mls @ 100 mls/hr IVPB Q12H COUNTS INCLUDE 234 BEDS AT THE [facility] Last Admin: 03/19/17 21:40 Dose: 100 mls/hr Insulin Aspart (Novolog) 0 unit SC ACHS COUNTS INCLUDE 234 BEDS AT THE [facility] PRN Reason: Protocol Last Admin: 03/20/17 09:07 Dose: Not Given Insulin Human Isoph/Insulin Regular (Novolin 70/30 (70/30 Units/Ml) 10 Ml) 10 units SC QAM COUNTS INCLUDE 234 BEDS AT THE [facility] Last Admin: 03/20/17 10:17 Dose: Not Given Insulin Human Isoph/Insulin Regular (Novolin 70/30 (70/30 Units/Ml) 10 Ml) 5 units SC HS COUNTS INCLUDE 234 BEDS AT THE [facility] Last Admin: 03/19/17 21:35 Dose: 5 units Pantoprazole Sodium (Protonix Ec Tab) 40 mg PO DAILY [facility] INCLUDE 234 BEDS AT THE [facility] Last Admin: 03/20/17 10:16 Dose: 40 mg Thiamine HCl (Vitamin B1 Tab) 100 mg PO DAILY [facility]S INCLUDE 234 BEDS AT THE [facility] Last Admin: 03/20/17 10:16 Dose: 100 mg Zolpidem Tartrate (Ambien) 5 mg PO HS PRN PRN Reason: Insomnia Last Admin: 03/19/17 21:32 Dose: 5 mg - Labs Labs: 03/20/17 07:14 03/20/17 10:23 PT 16.3 SECONDS (9.7-12.2) H 03/18/17 11:28 INR 1.4 03/18/17 11:28 APTT 39 SECONDS (21-34) H 03/18/17 11:28 - Constitutional Appears: Non-toxic, Cachectic, Chronically Ill - Head Exam Head Exam: NORMOCEPHALIC - Eye Exam Eye Exam: PERRL - ENT Exam ENT Exam: Mucous Membranes Dry - Neck Exam Neck Exam: absent: Lymphadenopathy - Respiratory Exam Respiratory Exam: Decreased Breath Sounds - Cardiovascular Exam Cardiovascular Exam: REGULAR RHYTHM - GI/Abdominal Exam GI & Abdominal Exam: Distended - Rectal Exam Rectal Exam: Deferred - Exam Exam: NORMAL INSPECTION - Extremities Exam Extremities Exam: absent: Pedal Edema - Back Exam Back Exam: absent: CVA tenderness (L), CVA tenderness (R) - Neurological Exam Neurological Exam: Alert, Awake, Oriented x3 - Psychiatric Exam Psychiatric exam: Depressed - Skin Skin Exam: Dry Assessment and Plan (1) Difficulty urinating Status: Acute (2) Difficulty walking Status: Acute (3) UTI (urinary tract infection) Status: Acute
--- NOTE | 2017-03-20 14:19 | PN ---
DATE: LOCATION: [facility], bed B. SUBJECTIVE: This is a 61 years old female seen and examined in rounds without significant clinical changes or reported active bleeding, still with intermittent periods of complaint of abdominal pain. The entire chart is reviewed including, but not limited to most recent lab and radiology study results, current and the previous medication list, current and the previous medical events. Case discussed with the staff at length. LABORATORY DATA: The patient's hemoglobin today is 9.7 with hematocrit 29.0 with thrombocytopenia of 66 and increased retic count, but low sodium 130, increased blood glucose level 249, low calcium 7.3, low phosphorus 2.4 with slightly elevated liver function tests, but low albumin 2.1, total protein low 5.0. The recently done abdominal ultrasound, yesterday, report is seen. PHYSICAL EXAMINATION: GENERAL: A 61 years old female, awake, alert, complaining of generalized body ache. VITAL SIGNS: Afebrile with pulse of 82, respiratory rate of 20 to 22, blood pressure 110/70. HEENT: Show pale, dry oral mucoid membrane, nonicteric sclerae. LUNGS: Few scattered crepitation. Decreased air entry at bases. HEART: Positive S1 and S2. ABDOMEN: Soft with slight generalized tenderness and mild distention. No mass or organomegaly. No rebound tenderness or guarding. EXTREMITIES: Slight lower extremities edematous changes. No clubbing or cyanosis. NEUROLOGIC: No new reported neurological deficits, sensory or motor. IMPRESSION: 1. Electrolyte imbalance. 2. Anemia. 3. Evidence of chronic pancreatitis with abnormal CAT scan of the abdomen and pelvis. 4. Known history of diabetes mellitus, hypertension, congestive heart failure with depression. 5. Re-exacerbation of peptic ulcer disease. 6. Mildly elevated liver function test, gradually improving. SUGGESTION: 1. Continue current management. 2. Peripheral hyperalimentation. 3. Correct any underlying electrolyte imbalance. 4. No aggressive GI procedure in the meantime, patient refusing. Wicho Potter MD
[2017-03-20] MEDS: Potassium & Sodium Phosphate PO SCH ×2 (14:58→17:40)
--- NOTE | 2017-03-20 15:30 | CP.PCM.PN ---
Subjective - Date & Time of Evaluation Date of Evaluation: 03/20/17 Time of Evaluation: 10:00 - Subjective Subjective: PGY3 on medicine Dr. Michel service: Pt seen and examined at bedside this morning. Pt reports minimal urine output and bilateral leg weakness. Pt however denied feeling bladder distention. Pt also wants sleeping pill at night. Objective - Vital Signs/Intake and Output Vital Signs (last 24 hours): Temp Pulse Resp BP Pulse Ox 97.9 F 81 18 104/68 96 03/20/17 09:49 03/20/17 09:49 03/20/17 09:49 03/20/17 09:49 03/20/17 09:49 Intake and Output: 03/20/17 03/20/17 06:59 18:59 Intake Total 1150 900 Balance 1150 900 - Medications Medications: Current Medications Clonidine HCl (Catapres) 0.2 mg PO DAILY [facility] Last Admin: 03/20/17 10:16 Dose: 0.2 mg Ferric Sodium Gluconate Complex (Ferrlecit) 125 mg IVPB DAILY [facility] Stop: 03/22/17 17:01 Last Admin: 03/20/17 10:24 Dose: 125 mg Potassium Chloride/Dextrose/Sod Cl (Potassium Chl 20 Meq In D5-1/2ns) 1,000 mls @ 100 mls/hr IV .Q10H [facility] Last Admin: 03/20/17 10:16 Dose: 100 mls/hr Tigecycline 50 mg/ Sodium (Chloride) 50 mls @ 100 mls/hr IVPB Q12H [facility] Last Admin: 03/20/17 12:44 Dose: 100 mls/hr Insulin Aspart (Novolog) 0 unit SC ACHS [facility] PRN Reason: Protocol Last Admin: 03/20/17 12:43 Dose: 2 unit Insulin Human Isoph/Insulin Regular (Novolin 70/30 (70/30 Units/Ml) 10 Ml) 10 units SC QAM [facility] Last Admin: 03/20/17 10:17 Dose: Not Given Insulin Human Isoph/Insulin Regular (Novolin 70/30 (70/30 Units/Ml) 10 Ml) 5 units SC HS [facility] Last Admin: 03/19/17 21:35 Dose: 5 units Ketorolac Tromethamine (Toradol) 30 mg IVP Q6 PRN PRN Reason: moderate pain Last Admin: 03/20/17 12:43 Dose: 30 mg Pantoprazole Sodium (Protonix Ec Tab) 40 mg PO DAILY [facility] Last Admin: 03/20/17 10:16 Dose: 40 mg Potassium Phos/Sodium Phos (Neutra-Phos) 1 pkt PO TID [facility] Last Admin: 03/20/17 14:58 Dose: 1 pkt Thiamine HCl (Vitamin B1 Tab) 100 mg PO DAILY [facility] Last Admin: 03/20/17 10:16 Dose: 100 mg Zolpidem Tartrate (Ambien) 5 mg PO HS PRN PRN Reason: Insomnia Last Admin: 03/19/17 21:32 Dose: 5 mg - Labs Labs: 03/20/17 07:14 03/20/17 10:23 PT 16.3 SECONDS (9.7-12.2) H 03/18/17 11:28 INR 1.4 03/18/17 11:28 APTT 39 SECONDS (21-34) H 03/18/17 11:28 - Constitutional Appears: Non-toxic, No Acute Distress, Chronically Ill - Head Exam Head Exam: NORMOCEPHALIC - Eye Exam Eye Exam: Normal appearance Pupil Exam: NORMAL ACCOMODATION - ENT Exam ENT Exam: Mucous Membranes Moist - Respiratory Exam Respiratory Exam: Clear to Ausculation Bilateral, NORMAL BREATHING PATTERN. absent: Wheezes - Cardiovascular Exam Cardiovascular Exam: REGULAR RHYTHM, +S1, +S2. absent: Gallop, Rubs - GI/Abdominal Exam GI & Abdominal Exam: Soft, Normal Bowel Sounds. absent: Distended, Firm, Guarding, Rigid, Tenderness - Exam Exam: Bladder Distension - Neurological Exam Neurological Exam: Alert, Awake, Oriented x3 - Psychiatric Exam Psychiatric exam: Normal Mood - Skin Skin Exam: Intact Assessment and Plan - Assessment and Plan (Free Text) Assessment: (1) Difficulty urinating Assessment & Plan: Pt voided 600cc overnight per record F/U bladder scan (2) UTI (urinary tract infection) Assessment & Plan: ESBL E. Coli in urine culture. Dr. Dos Santos consulted Tigecycline 50mg IV q12H started on 03/19 (3) Alcohol abuse Assessment & Plan: thiamine and folic acid, replace her potassium and mag today (4) Thrombocytopenia Assessment & Plan: most likely secondary to etoh abuse (5) Diabetes Assessment & Plan: sliding scale and her Novolin 70/30 5 units HS and 10 units AM (6) Elevated LFT and bilirubin Assessment & Plan: Downtrending, continue to monitor GI Dr. Zendejas consulted, help appreciated. Abdominal ultrasound showed upper abdominal ascites and thickened gallbladder wall. (7) Prophylactic measure Assessment & Plan: hold VTE due to low plt count protonix and SCDs for now PT/OT evaluation for placement
[2017-03-20] MEDS: Dextrose 5%/0.45% NS 1,000 ML IV SCH (23:04)
[2017-03-21] MEDS: (Novolog) Insulin Aspart, Recombinant 100 u/ml 10 ml vial SC SCH ×4 (07:35→21:16)
[2017-03-21] MEDS: Dextrose 5%/0.45% NS 1,000 ML IV SCH ×2 (07:51→09:59)
[2017-03-21] MEDS: Potassium & Sodium Phosphate PO SCH ×3 (09:51→17:27)
[2017-03-21] MEDS: Pantoprazole 40 mg EC Tab PO SCH (09:51)
[2017-03-21] MEDS: (Novolin 70/30) NPH/Regular 70/30 Units/ml 10 ml vial SC SCH ×2 (09:51→21:11)
--- NOTE | 2017-03-21 10:52 | CP.PCM.PN ---
Subjective - Date & Time of Evaluation Date of Evaluation: 03/21/17 Time of Evaluation: 09:00 - Subjective Subjective: Dr. Michel note: Patient seen and examined in room. She is still complaining of difficulty urinating and urinating a little at a time. She denies fever, chills, nausea, vomiting, diarrhea. She says it feels like a UTI. Objective - Vital Signs/Intake and Output Vital Signs (last 24 hours): Temp Pulse Resp BP Pulse Ox 98.6 F 72 20 93/54 L 94 L 03/21/17 08:00 03/21/17 08:00 03/21/17 08:00 03/21/17 08:00 03/21/17 08:00 Intake and Output: 03/21/17 03/21/17 06:59 18:59 Intake Total 2270 Balance 2270 - Medications Medications: Current Medications Clonidine HCl (Catapres) 0.2 mg PO DAILY [facility] Last Admin: 03/21/17 09:51 Dose: 0.2 mg Ferric Sodium Gluconate Complex (Ferrlecit) 125 mg IVPB DAILY [facility] Stop: 03/22/17 17:01 Last Admin: 03/20/17 10:24 Dose: 125 mg Tigecycline 50 mg/ Sodium (Chloride) 50 mls @ 100 mls/hr IVPB Q12H [facility] Last Admin: 03/21/17 09:57 Dose: 100 mls/hr Dextrose/Sodium Chloride (Dextrose 5%/0.45% Ns 1000 Ml) 1,000 mls @ 100 mls/hr IV .Q10H [facility] Last Admin: 03/21/17 09:59 Dose: 100 mls/hr Insulin Aspart (Novolog) 0 unit SC ACHS [facility] PRN Reason: Protocol Last Admin: 03/21/17 07:35 Dose: Not Given Insulin Human Isoph/Insulin Regular (Novolin 70/30 (70/30 Units/Ml) 10 Ml) 10 units SC QAM [facility] Last Admin: 03/21/17 09:51 Dose: 10 units Insulin Human Isoph/Insulin Regular (Novolin 70/30 (70/30 Units/Ml) 10 Ml) 5 units SC HS [facility] Last Admin: 03/20/17 21:33 Dose: 5 units Ketorolac Tromethamine (Toradol) 30 mg IVP Q6 PRN PRN Reason: moderate pain Last Admin: 03/21/17 09:51 Dose: 30 mg Pantoprazole Sodium (Protonix Ec Tab) 40 mg PO DAILY [facility] Last Admin: 03/21/17 09:51 Dose: 40 mg Potassium Phos/Sodium Phos (Neutra-Phos) 1 pkt PO TID [facility] Last Admin: 03/21/17 09:51 Dose: 1 pkt Thiamine HCl (Vitamin B1 Tab) 100 mg PO DAILY [facility] Last Admin: 03/21/17 09:51 Dose: 100 mg Zolpidem Tartrate (Ambien) 5 mg PO HS PRN PRN Reason: Insomnia Last Admin: 03/20/17 21:37 Dose: 5 mg - Labs Labs: 03/20/17 07:14 03/20/17 10:23 PT 16.3 SECONDS (9.7-12.2) H 03/18/17 11:28 INR 1.4 03/18/17 11:28 APTT 39 SECONDS (21-34) H 03/18/17 11:28 - Constitutional Appears: Non-toxic, No Acute Distress - Eye Exam Eye Exam: Normal appearance - Respiratory Exam Respiratory Exam: Clear to Ausculation Bilateral. absent: Rales, Rhonchi, Wheezes - Cardiovascular Exam Cardiovascular Exam: REGULAR RHYTHM, RRR, +S1, +S2. absent: Gallop, Rubs - GI/Abdominal Exam GI & Abdominal Exam: Soft, Normal Bowel Sounds. absent: Tenderness - Extremities Exam Extremities Exam: Normal Inspection. absent: Pedal Edema - Back Exam Back Exam: NORMAL INSPECTION. absent: CVA tenderness (L), CVA tenderness (R) - Psychiatric Exam Psychiatric exam: Normal Affect, Normal Mood - Skin Skin Exam: Normal Color Assessment and Plan - Assessment and Plan (Free Text) Assessment: (1) Difficulty urinating Assessment & Plan: 03/21: Post void bladder scan shows about [address] Ingrid Hwang consulted. Pt voided 600cc overnight per record F/U bladder scan Hyponatremia: Na is 124, fluid restricted diet, Nephrology consult urine lytes. Anemia: 03/21: IV Ferrict. (2) UTI (urinary tract infection) Assessment & Plan: 03/21: stopped Tigecyle and changed to Bactrim. ESBL E. Coli in urine culture. Dr. Dos Santos consulted Tigecycline 50mg IV q12H started on 03/19 (3) Alcohol abuse Assessment & Plan: 03/21: replaced Mag today, continue thiamine and folic acid thiamine and folic acid, replace her potassium and mag today (4) Thrombocytopenia Assessment & Plan: most likely secondary to etoh abuse (5) Diabetes Assessment & Plan: sliding scale and her Novolin 70/30 5 units HS and 10 units AM (6) Elevated LFT and bilirubin Assessment & Plan: Downtrending, continue to monitor GI Dr. Zendejas consulted, help appreciated. Abdominal ultrasound showed upper abdominal ascites and thickened gallbladder wall. (7) Prophylactic measure Assessment & Plan: hold VTE due to low plt count protonix and SCDs for now PT/OT evaluation for placement
[2017-03-21] MEDS: Ferric Sodium Gluconat Complex 62.5 mg/5 ml Vial IVPB SCH (10:57)
[2017-03-21 12:02] LABS: BASO # 0.1 K/uL (0.0-0.2); BASO % 0.8 % (0.0-2.0); EOS # 0.2 K/uL (0.0-0.7); EOS % 2.9 % (0.0-4.0); HEMATOCRIT 26.5 % (34.0-47.0); LYMPH # 1.3 K/uL (1.0-4.3); LYMPH % 16.5 % (20.0-40.0); MEAN CELL VOLUME 114.5 fL (81.0-99.0); MEAN CORPUSCULAR HEMOGLOBIN 37.7 pg (27.0-31.0); MONO # 0.5 K/uL (0.0-0.8); MONO % 6.6 % (0.0-10.0); RED CELL DISTRIBUTION WIDTH 14.2 % (11.5-14.5); WHITE BLOOD COUNT 7.6 K/uL (4.8-10.8)
[2017-03-21 12:50] LABS: ALB/GLOB RATIO 0.7 (1.0-2.1); ALKALINE PHOSPHATASE 83 U/L (38-126); ALT/SGPT 53 U/L (9-52); AST/SGOT 41 U/L (14-36); BILIRUBIN,TOTAL 1.4 mg/dL (0.2-1.3); BLOOD UREA NITROGEN 13 mg/dL (7-17); CALCIUM 7.4 mg/dl (8.6-10.4); CARBON DIOXIDE 21 mmol/L (22-30); CHLORIDE 98 mmol/L (98-107); GFR AFRICAN-AMERICAN > 60; GLUCOSE,RANDOM 143 mg/dL (65-105); MAGNESIUM 1.2 mg/dL (1.6-2.3); PHOSPHOROUS 3.5 mg/dL (2.5-4.5); POTASSIUM 4.6 mmol/L (3.6-5.2); SODIUM 124 mmol/L (132-148); TOTAL PROTEIN 4.9 g/dL (6.3-8.3)
--- NOTE | 2017-03-21 14:54 | PN ---
DATE: LOCATION: [facility], bed A. SUBJECTIVE: This is a 61-year-old female seen and examined in rounds without significant clinical changes, with lower abdominal pain. No reported active bleeding. The entire chart is reviewed including, but not limited to the most recent lab and radiology study results, current and the previous medication list, current and the previous medical events. Case discussed at length with the staff in the floor. Today's lab showed hemoglobin low of 8.8 with hematocrit 25.5 and thrombocytopenia of 63 with blood glucose level 170. Patient is still having abnormal liver function test with mild jaundice and low albumin and low total protein. PHYSICAL EXAMINATION: GENERAL: A 61 years old female. VITAL SIGNS: Afebrile with pulse of 76, respiratory rate 20 to 22, blood pressure 96/66. HEENT: Showed pale, dry oral mucoid membrane. Slightly icteric sclerae. LUNGS: Few scattered crepitations. Decreased air entry at bases. HEART: Positive S1 and S2. ABDOMEN: Soft with mild generalized tenderness. No mass or organomegaly. No rebound tenderness or guarding. RECTAL: The patient refused. EXTREMITIES: Without significant clubbing, cyanosis, or edema. NEUROLOGIC: No reported new neurological deficits, sensory or motor. IMPRESSION: 1. Electrolyte imbalance. 2. Evidence of acute pancreatitis by radiology study results. 3. Alcohol abuse by history as reported. 4. Known history of diabetes mellitus, congestive heart failure, hypertension. 5. Re-exacerbation of peptic ulcer disease. 6. Depression by history. 7. Abnormal liver function tests, mildly, secondary to above. SUGGESTION: 1. Continue current management. 2. Rehydration. 3. Hepatitis profile. 4. Patient is still refusing any aggressive GI workup. Further recommendation to follow. Wicho Potter MD
--- NOTE | 2017-03-21 15:02 | CP.PCM.PN ---
Subjective - Date & Time of Evaluation Date of Evaluation: 03/21/17 Time of Evaluation: 09:00 - Subjective Subjective: Pt reports minimal urine output and bilateral leg weakness. Pt however denied feeling bladder distention. Pt also wants sleeping pill at night. awaiting neurosurg consult has distended GB would consider HIDA scan Objective - Vital Signs/Intake and Output Vital Signs (last 24 hours): Temp Pulse Resp BP Pulse Ox 98.6 F 72 20 93/54 L 94 L 03/21/17 08:00 03/21/17 08:00 03/21/17 08:00 03/21/17 08:00 03/21/17 08:00 Intake and Output: 03/21/17 03/21/17 06:59 18:59 Intake Total 2270 1100 Balance 2270 1100 - Medications Medications: Current Medications Clonidine HCl (Catapres) 0.2 mg PO DAILY [facility] Last Admin: 03/21/17 09:51 Dose: 0.2 mg Ferric Sodium Gluconate Complex (Ferrlecit) 125 mg IVPB DAILY [facility] Stop: 03/22/17 17:01 Last Admin: 03/21/17 10:57 Dose: 125 mg Tigecycline 50 mg/ Sodium (Chloride) 50 mls @ 100 mls/hr IVPB Q12H [facility] Last Admin: 03/21/17 09:57 Dose: 100 mls/hr Dextrose/Sodium Chloride (Dextrose 5%/0.45% Ns 1000 Ml) 1,000 mls @ 100 mls/hr IV .Q10H [facility] Last Admin: 03/21/17 09:59 Dose: 100 mls/hr Insulin Aspart (Novolog) 0 unit SC ACHS [facility] PRN Reason: Protocol Last Admin: 03/21/17 12:20 Dose: 1 unit Insulin Human Isoph/Insulin Regular (Novolin 70/30 (70/30 Units/Ml) 10 Ml) 10 units SC QAM [facility] Last Admin: 03/21/17 09:51 Dose: 10 units Insulin Human Isoph/Insulin Regular (Novolin 70/30 (70/30 Units/Ml) 10 Ml) 5 units SC HS [facility] Last Admin: 03/20/17 21:33 Dose: 5 units Ketorolac Tromethamine (Toradol) 30 mg IVP Q6 PRN PRN Reason: moderate pain Last Admin: 03/21/17 09:51 Dose: 30 mg Pantoprazole Sodium (Protonix Ec Tab) 40 mg PO DAILY [facility] Last Admin: 03/21/17 09:51 Dose: 40 mg Potassium Phos/Sodium Phos (Neutra-Phos) 1 pkt PO TID [facility] Last Admin: 03/21/17 13:36 Dose: 1 pkt Thiamine HCl (Vitamin B1 Tab) 100 mg PO DAILY [facility] Last Admin: 03/21/17 09:51 Dose: 100 mg Zolpidem Tartrate (Ambien) 5 mg PO HS PRN PRN Reason: Insomnia Last Admin: 03/20/17 21:37 Dose: 5 mg - Labs Labs: 03/21/17 11:55 03/21/17 11:55 PT 16.3 SECONDS (9.7-12.2) H 03/18/17 11:28 INR 1.4 03/18/17 11:28 APTT 39 SECONDS (21-34) H 03/18/17 11:28 - Constitutional Appears: Non-toxic, Cachectic, Chronically Ill - Head Exam Head Exam: NORMOCEPHALIC - Eye Exam Eye Exam: PERRL. absent: Scleral icterus - ENT Exam ENT Exam: Mucous Membranes Dry - Neck Exam Neck Exam: absent: Lymphadenopathy - Respiratory Exam Respiratory Exam: Decreased Breath Sounds, Clear to Ausculation Bilateral - Cardiovascular Exam Cardiovascular Exam: REGULAR RHYTHM, +S1, +S2 - GI/Abdominal Exam GI & Abdominal Exam: Distended, Soft - Rectal Exam Rectal Exam: Deferred - Exam Exam: NORMAL INSPECTION - Extremities Exam Extremities Exam: absent: Pedal Edema - Back Exam Back Exam: absent: CVA tenderness (L), CVA tenderness (R) - Neurological Exam Neurological Exam: Alert, Awake, Oriented x3 - Psychiatric Exam Psychiatric exam: Depressed Assessment and Plan (1) Difficulty urinating Status: Acute (2) Difficulty walking Status: Acute (3) UTI (urinary tract infection) Status: Acute - Assessment and Plan (Free Text) Assessment: bilat leg weakness as well as urinary difficulty and UTI + ascites in setting of chronic ETOH r/o malignancy r/o spinal cord compression recc complete GI and neuro work up consider MRI spine as well as EMG/ NCS cont IV antiobotics
[2017-03-21] MEDS: Magnesium Sulfate 1 gm in D5W 1 GM/100 ML BAG IVPB SCH ×2 (16:00→16:30)
[2017-03-21 17:31] LABS: RBC URINE 3 /hpf (0-3); TRANSITIONAL EPITHIAL < 1 /hpf (0-3); URINE BACTERIA RARE (<OCC); URINE BILIRUBIN NEGATIVE (NEGATIVE); URINE BLOOD NEGATIVE (NEGATIVE); URINE COLOR Yellow (YELLOW); URINE GLUCOSE (UA) NORMAL (Normal); URINE KETONE NEGATIVE (NEGATIVE); URINE LEUKOCYTE ESTERASE 1+ Leu/uL (Negative); URINE PROTEIN NEGATIVE (NEGATIVE); URINE UROBILINOGEN NORMAL mg/dL (0.2-1.0); WBC URINE 11 /hpf (0-5)
[2017-03-21] MEDS: Magnesium Oxide 400 mg Tab UD PO SCH (19:10)
[2017-03-22] MEDS: (Novolog) Insulin Aspart, Recombinant 100 u/ml 10 ml vial SC SCH ×4 (08:21→21:03)
[2017-03-22 08:49] LABS: ALB/GLOB RATIO 0.7 (1.0-2.1); ALKALINE PHOSPHATASE 79 U/L (38-126); ALT/SGPT 54 U/L (9-52); AST/SGOT 41 U/L (14-36); BILIRUBIN,TOTAL 1.5 mg/dL (0.2-1.3); BLOOD UREA NITROGEN 14 mg/dL (7-17); CALCIUM 7.6 mg/dl (8.6-10.4); CARBON DIOXIDE 21 mmol/L (22-30); CHLORIDE 101 mmol/L (98-107); GFR AFRICAN-AMERICAN > 60; GLUCOSE,RANDOM 123 mg/dL (65-105); MAGNESIUM 1.6 mg/dL (1.6-2.3); SODIUM 128 mmol/L (132-148); TOTAL PROTEIN 4.9 g/dL (6.3-8.3); URIC ACID 4.7 mg/dL (2.2-7.5)
[2017-03-22] MEDS: Ferric Sodium Gluconat Complex 62.5 mg/5 ml Vial IVPB SCH (10:10)
[2017-03-22] MEDS: (Novolin 70/30) NPH/Regular 70/30 Units/ml 10 ml vial SC SCH ×2 (10:10→21:40)
[2017-03-22] MEDS: Pantoprazole 40 mg EC Tab PO SCH (10:10)
[2017-03-22] MEDS: Potassium & Sodium Phosphate PO SCH ×3 (10:30→17:22)
[2017-03-22] MEDS: Magnesium Oxide 400 mg Tab UD PO SCH ×2 (10:30→17:22)
--- NOTE | 2017-03-22 10:48 | CP.PCM.CON ---
History of Present Illness - History of Present Illness History of Present Illness: cc: Difficulty voiding Full note to be dictated Past Patient History - Infectious Disease Hx of Infectious Diseases: None - Past Medical History & Family History Past Medical History?: Yes - Past Social History Smoking Status: Former Smoker - CARDIAC Hx Congestive Heart Failure: Yes Hx Hypertension: Yes - PULMONARY Hx Respiratory Disorders: No - NEUROLOGICAL Hx Transient Ischemic Attacks (TIA): Yes (As per pt) - HEENT Hx HEENT Problems: No - RENAL Hx Chronic Kidney Disease: No - ENDOCRINE/METABOLIC Hx Diabetes Mellitus Type 1: Yes - HEMATOLOGICAL/ONCOLOGICAL Hx Blood Disorders: Yes Hx Anemia: Yes Hx Blood Transfusions: Yes - INTEGUMENTARY Hx Dermatological Problems: No - MUSCULOSKELETAL/RHEUMATOLOGICAL Hx Falls: Yes Hx Fractures: Yes (left 5th metacarpal) - GASTROINTESTINAL Hx Gastrointestinal Disorders: No - GENITOURINARY/GYNECOLOGICAL Hx Genitourinary Disorders: No - PSYCHIATRIC Hx Depression: Yes Hx Substance Use: No - SURGICAL HISTORY Hx Surgeries: Yes Hx Angiogram: Yes (Lt Hrt Angiocardiogram 04/2014) Hx Cardiac Catheterization: Yes (Lt [facility] Cardiac cath 04/2014) Hx Orthopedic Surgery: Yes (left wrist) Other/Comment: ABDOMINAL EXPLORITORY SX. - ANESTHESIA Hx Anesthesia: Yes Hx Anesthesia Reactions: No Hx Malignant Hyperthermia: No Meds Allergies/Adverse Reactions: Allergies Allergy/AdvReac Type Severity Reaction Status Date / Time acetaminophen [From Tylenol] Allergy Intermediate SWELLING Verified 03/17/17 14: 32 codeine Allergy Intermediate SWELLING Verified 03/17/17 14:32 Penicillins Allergy Intermediate SWELLING Verified 03/17/17 14:32 - Medications Medications: Current Medications Clonidine HCl (Catapres) 0.2 mg PO DAILY [facility] Last Admin: 03/22/17 10:10 Dose: 0.2 mg Ferric Sodium Gluconate Complex (Ferrlecit) 125 mg IVPB DAILY [facility] Stop: 03/22/17 17:01 Last Admin: 03/22/17 10:10 Dose: 125 mg Tigecycline 50 mg/ Sodium (Chloride) 50 mls @ 100 mls/hr IVPB Q12H [facility] Last Admin: 03/22/17 05:30 Dose: 100 mls/hr Insulin Aspart (Novolog) 0 unit SC ACHS [place] PRN Reason: Protocol Last Admin: 03/22/17 08:21 Dose: Not Given Insulin Human Isoph/Insulin Regular (Novolin 70/30 (70/30 Units/Ml) 10 Ml) 10 units SC QAM [facility] Last Admin: 03/22/17 10:10 Dose: 10 units Insulin Human Isoph/Insulin Regular (Novolin 70/30 (70/30 Units/Ml) 10 Ml) 5 units SC HS [facility] Last Admin: 03/21/17 21:11 Dose: 5 units Ketorolac Tromethamine (Toradol) 30 mg IVP Q6 PRN PRN Reason: moderate pain Last Admin: 03/22/17 10:18 Dose: 30 mg Magnesium Oxide (Mag-Ox) 800 mg PO BID [facility] Last Admin: 03/22/17 10:30 Dose: 800 mg Pantoprazole Sodium (Protonix Ec Tab) 40 mg PO DAILY [facility] Last Admin: 03/22/17 10:10 Dose: 40 mg Potassium Phos/Sodium Phos (Neutra-Phos) 1 pkt PO TID [facility] Last Admin: 03/22/17 10:30 Dose: 1 pkt Thiamine HCl (Vitamin B1 Tab) 100 mg PO DAILY [facility] Last Admin: 03/22/17 10:10 Dose: 100 mg Zolpidem Tartrate (Ambien) 5 mg PO HS PRN PRN Reason: Insomnia Last Admin: 03/21/17 21:10 Dose: 5 mg Results - Vital Signs Recent Vital Signs: Last Vital Signs Temp 98 F 03/22/17 08:24 Pulse 83 03/22/17 08:24 Resp 20 03/22/17 08:24 BP 108/74 03/22/17 08:24 Pulse Ox 97 03/22/17 08:24 - Labs Result Diagrams: 03/21/17 11:55 03/22/17 08:27 Labs: Laboratory Results - last 24 hr 03/21/17 03/21/17 03/21/17 11:36 11:55 11:55 WBC 7.6 RBC 2.32 L Hgb 8.8 L Hct 26.5 L MCV 114.5 H MCH 37.7 H MCHC 33.0 RDW 14.2 Plt Count 63 L MPV 10.0 Neut % (Auto) 73.2 Lymph % (Auto) 16.5 L [place] % (Auto) 6.6 Eos % (Auto) 2.9 Baso % (Auto) 0.8 Neut # 5.5 Lymph # 1.3 [place] # 0.5 Eos # 0.2 Baso # 0.1 Sodium 124 L Potassium 4.6 Chloride 98 Carbon Dioxide 21 L Anion Gap 9 L BUN 13 Creatinine 0.7 Est GFR ( Amer) > 60 Est GFR (Non-Af Amer) > 60 POC Glucose (mg/dL) 170 H Random Glucose 143 H Serum Osmolality Uric Acid Calcium 7.4 L Phosphorus 3.5 Magnesium 1.2 L Total Bilirubin 1.4 H AST 41 H D ALT 53 H Alkaline Phosphatase 83 Total Protein 4.9 L Albumin 2.0 L Globulin 2.9 Albumin/Globulin Ratio 0.7 L Urine Color Urine Clarity Urine pH Ur Specific [place] Urine Protein Urine Glucose (UA) Urine Ketones Urine Blood Urine Nitrate Urine Bilirubin Urine Urobilinogen Ur Leukocyte Esterase Urine WBC (Auto) Urine RBC (Auto) Ur Squamous Epith Cells Ur Transition Epith Cell Urine Bacteria Urine Yeast (Budding) Ur Random Sodium 03/21/17 03/21/17 03/21/17 16:37 17:20 17:20 WBC RBC Hgb Hct MCV MCH MCHC RDW Plt Count MPV Neut % (Auto) Lymph % (Auto) [place] % (Auto) Eos % (Auto) Baso % (Auto) Neut # Lymph # [place] # Eos # Baso # Sodium Potassium Chloride Carbon Dioxide Anion Gap BUN Creatinine Est GFR ( Amer) Est GFR (Non-Af Amer) POC Glucose (mg/dL) 161 H Random Glucose Serum Osmolality Uric Acid Calcium Phosphorus Magnesium Total Bilirubin AST ALT Alkaline Phosphatase Total Protein Albumin Globulin Albumin/Globulin Ratio Urine Color Yellow Urine Clarity Clear Urine pH 6.0 Ur Specific [place] 1.005 Urine Protein Negative Urine Glucose (UA) Normal Urine Ketones Negative Urine Blood Negative Urine Nitrate Negative Urine Bilirubin Negative Urine Urobilinogen Normal Ur Leukocyte Esterase 1+ H Urine WBC (Auto) 11 H Urine RBC (Auto) 3 Ur Squamous Epith Cells 5 Ur Transition Epith Cell < 1 Urine Bacteria Rare Urine Yeast (Budding) Few H Ur Random Sodium < 5 03/21/17 03/22/17 03/22/17 21:12 02:31 07:20 WBC RBC Hgb Hct MCV MCH MCHC RDW Plt Count MPV Neut % (Auto) Lymph % (Auto) [place] % (Auto) Eos % (Auto) Baso % (Auto) Neut # Lymph # [place] # Eos # Baso # Sodium Potassium Chloride Carbon Dioxide Anion Gap BUN Creatinine Est GFR ( Amer) Est GFR (Non-Af Amer) POC Glucose (mg/dL) 81 111 H 143 H Random Glucose Serum Osmolality Uric Acid Calcium Phosphorus Magnesium Total Bilirubin AST ALT Alkaline Phosphatase Total Protein Albumin Globulin Albumin/Globulin Ratio Urine Color Urine Clarity Urine pH Ur Specific [place] Urine Protein Urine Glucose (UA) Urine Ketones Urine Blood Urine Nitrate Urine Bilirubin Urine Urobilinogen Ur Leukocyte Esterase Urine WBC (Auto) Urine RBC (Auto) Ur Squamous Epith Cells Ur Transition Epith Cell Urine Bacteria Urine Yeast (Budding) Ur Random Sodium 03/22/17 03/22/17 08:27 08:27 WBC RBC Hgb Hct MCV MCH MCHC RDW Plt Count MPV Neut % (Auto) Lymph % (Auto) [place] % (Auto) Eos % (Auto) Baso % (Auto) Neut # Lymph # [place] # Eos # Baso # Sodium 128 L Potassium 4.0 Chloride 101 Carbon Dioxide 21 L Anion Gap 10 BUN 14 Creatinine 0.6 L Est GFR ( Amer) > 60 Est GFR (Non-Af Amer) > 60 POC Glucose (mg/dL) Random Glucose 123 H Serum Osmolality 282 Uric Acid 4.7 Calcium 7.6 L Phosphorus 4.0 Magnesium 1.6 Total Bilirubin 1.5 H AST 41 H ALT 54 H Alkaline Phosphatase 79 Total Protein 4.9 L Albumin 2.0 L Globulin 2.9 Albumin/Globulin Ratio 0.7 L Urine Color Urine Clarity Urine pH Ur Specific [place] Urine Protein Urine Glucose (UA) Urine Ketones Urine Blood Urine Nitrate Urine Bilirubin Urine Urobilinogen Ur Leukocyte Esterase Urine WBC (Auto) Urine RBC (Auto) Ur Squamous Epith Cells Ur Transition Epith Cell Urine Bacteria Urine Yeast (Budding) Ur Random Sodium Assessment & Plan - Assessment and Plan (Free Text) Assessment: see dictated report - Date & Time Date: 03/21/17 Time: 12:05
--- NOTE | 2017-03-22 12:38 | PN ---
DATE: LOCATION: [facility], bed A. SUBJECTIVE: This is 61-year-old female, seen and examined, without significant clinical changes, who has mildly loose bowel movement recently, complaining of suprapubic and lower abdominal pain on and off. The entire chart is reviewed including most recent lab and radiology study results, current and previous medication list, current and previous medical events. LABORATORY DATA: Today's sodium level low, is 128; with low CO2 content of 21, indicative of metabolic acidosis with increased blood glucose level of 123, low calcium 7.9, with increased total bilirubin 1.5, AST elevated 241, ALT 254, with low albumin of 2.0. Most recently done abdominal ultrasound report is seen with mild abdominal ascites and evidence of chronic pancreatitis. PHYSICAL EXAMINATION: GENERAL: A 61-year-old female, complaining of generalized body ache. VITAL SIGNS: Afebrile with pulse of 80, respiratory 20 to 22, blood pressure 106/70. HEENT: Show pale, dry oral mucoid membrane mildly with slight icteric sclerae. LUNGS: Few scattered crepitation. Decreased air entry at bases. HEART: Positive S1 and S2. ABDOMEN: Soft. Bowel sounds are present with mild generalized tenderness. No mass or organomegaly. No rebound, tenderness or guarding. NEUROLOGIC: No reported new neurological deficits, sensory or motor. IMPRESSION: 1. Difficulty of urination, Urology consult is in place. 2. Body weight loss with generalized weakness and malaise with abnormal liver function test of unclear etiology. 3. Electrolyte imbalance with hyponatremia, hypocalcemia. 4. Evidence of chronic pancreatitis by history. 5. Abnormal ultrasound with hepatic parenchymal disease, with small ascites. 6. Known history of alcohol abuse. 7. History of hypertension, congestive heart failure, diabetes mellitus. 8. Depression by history. SUGGESTION: 1. Continue current management. 2. MRCP. 3. Psychiatry evaluation. Wicho Potter MD
--- NOTE | 2017-03-22 17:19 | CP.PCM.CON ---
History of Present Illness - History of Present Illness History of Present Illness: Initial Nephrology Consultation: Assessment: Stable Hypovolemic hyponatremia (urine Na <5) and contibuted by infusion of hypotonic fluids Hypomagnesemia, Anemia diabetes Mellitus hypertension, ex smoker, chronic etoh abuse and chronic pancreatitis UTI, back pain Plan BP on low side hence d/c clonidine Serum Na better once she is off hypotonic fluid. will give Normal saline instead considering her very low urine Na suggestive of a pre-renal state avoid correction in serum Na >6-8 meq/24 hr. no need for hypertonic saline at this time check urine osmol as well supplemented magneseium Monitor Input/Output, daily weights and renal function with basic metabolic panel Glycemic control Further work up/management as per primary team Thanks for allowing me to participate in care of your patient. Will follow patient with you. Please call if any Qs Dr Jaya Flynn Office: [phone] Chief Complaint; Back pain Reason for consult: hyponatremia HPI: Pt is a 61 y/o F with hx of diabetes Mellitus hypertension, ex smoker, chronic etoh abuse and chronic pancreatitis initially presented with complaints of dysuria and being treated with antibiotics for UTI. she was getting D5/0.45% saline and noted to have decreased serum Na to 124 hence renal consult reqesuted pt c/o low back pain Denies chest pain, palpitation, shortness of breath, leg swelling Denies blood or bubbles in urine. has duong and she is not comfortable with it ROS: Constitutional Symptoms: Denies fever. No chills. No Recent Weight Changes Eyes: denies change in vision, denies watery eyes, denies double vision Ears/Nose/Mouth/Throat: Denies Abnormal Taste. No Bad breath no Bad Taste. Cardiovascular: No chest pain. There is no shortness of breath. No palpitations. Pulmonary: No shortness of breath no cough. Gastrointestinal: denies abdominal pain No nausea. No vomiting. Denies change in bowel habits. Denies Bleeding Genitourinary: has duong and she is not comfortable with it Neurological: Denies headaches. No dizziness. Denies loss of balance. c/o overall weakness, denies tingling/numbness Dermatological: No Rash or Bruising or ulcers. Psychiatric: Denies Anxiety. No depression. Denies hallucinations. Rheumatological: c/o back pain. Denies Joint swelling Endocrine: Denies tiredness/Fatigue denies Heat/Cold Intolerance. All other negative Physical Examination: General Appearance: uncomfortable, in no acute respiratory distress, co- operative . irritable. cachexic Vitals reviewed and noted as below Head; Atraumatic, normocephalic ENT: no ulcers no thrush. Tongue is midline/dry. Oropharynx: no rash or ulcers. EYES: Pupils are equal, round and reactive to light accommodation. Eye muscles and extraocular movement intact. Sclera is anicteric. Neck; supple no lymphadenopathy, no thyromegaly or bruit Lungs: Normal respiratory rate/effort. Breath sounds bilateral equal and clear Heart: Normal rate. s1s2 normal. No rub or gallop. Extremities: no edema. No varicose veins Neurological: Patient is alert, awake and oriented to person, place and time. No focal deficit. Strength bilateral appropriate and equal Skin: Warm and dry. Normal turgor. No rash. Palpitation: Normal elasticity for age Abdomen: Abdomen is soft. Bowel sounds +. There is no abdominal tenderness, no guarding/rigidity no organomegaly ? ascites Psych: normal insight and normal affect/mood MSK: no joint tenderness or swelling. Digits and nails normal, no deformity : kidney or bladder not palpable Labs/imaging/EKG reviewed. Past medical history, past surgical history, family history, social history, allergy reviewed and noted as below Family hx: no hx of CKD. Rest non-contributory recent echo: normal LVEF CT abdomen: chronic pancreatitis, liver disease, increased echogenic kidneys. has compression fractures in vertebra Past Patient History - Infectious Disease Hx of Infectious Diseases: None - Past Medical History & Family History Past Medical History?: Yes - Past Social History Smoking Status: Former Smoker - CARDIAC Hx Congestive Heart Failure: Yes Hx Hypertension: Yes - PULMONARY Hx Respiratory Disorders: No - NEUROLOGICAL Hx Transient Ischemic Attacks (TIA): Yes (As per pt) - HEENT Hx HEENT Problems: No - RENAL Hx Chronic Kidney Disease: No - ENDOCRINE/METABOLIC Hx Diabetes Mellitus Type 1: Yes - HEMATOLOGICAL/ONCOLOGICAL Hx Blood Disorders: Yes Hx Anemia: Yes Hx Blood Transfusions: Yes - INTEGUMENTARY Hx Dermatological Problems: No - MUSCULOSKELETAL/RHEUMATOLOGICAL Hx Falls: Yes Hx Fractures: Yes (left 5th metacarpal) - GASTROINTESTINAL Hx Gastrointestinal Disorders: No - GENITOURINARY/GYNECOLOGICAL Hx Genitourinary Disorders: No - PSYCHIATRIC Hx Depression: Yes Hx Substance Use: No - SURGICAL HISTORY Hx Surgeries: Yes Hx Angiogram: Yes (Lt Hrt Angiocardiogram 04/2014) Hx Cardiac Catheterization: Yes (Lt hrt Cardiac cath 04/2014) Hx Orthopedic Surgery: Yes (left wrist) Other/Comment: ABDOMINAL EXPLORITORY SX. - ANESTHESIA Hx Anesthesia: Yes Hx Anesthesia Reactions: No Hx Malignant Hyperthermia: No Meds Allergies/Adverse Reactions: Allergies Allergy/AdvReac Type Severity Reaction Status Date / Time acetaminophen [From Tylenol] Allergy Intermediate SWELLING Verified 03/17/17 14: 32 codeine Allergy Intermediate SWELLING Verified 03/17/17 14:32 Penicillins Allergy Intermediate SWELLING Verified 03/17/17 14:32 - Medications Medications: Current Medications Tigecycline 50 mg/ Sodium (Chloride) 50 mls @ 100 mls/hr IVPB Q12H [facility] Last Admin: 03/22/17 05:30 Dose: 100 mls/hr Insulin Aspart (Novolog) 0 unit SC ACHS [facility] PRN Reason: Protocol Last Admin: 03/22/17 16:04 Dose: Not Given Insulin Human Isoph/Insulin Regular (Novolin 70/30 (70/30 Units/Ml) 10 Ml) 10 units SC QAM [facility] Last Admin: 03/22/17 10:10 Dose: 10 units Insulin Human Isoph/Insulin Regular (Novolin 70/30 (70/30 Units/Ml) 10 Ml) 5 units SC HS [facility] Last Admin: 03/21/17 21:11 Dose: 5 units Ketorolac Tromethamine (Toradol) 30 mg IVP Q6 PRN PRN Reason: Pain, moderate (4-7) Last Admin: 03/22/17 16:00 Dose: 30 mg Magnesium Oxide (Mag-Ox) 800 mg PO BID [facility] Last Admin: 03/22/17 10:30 Dose: 800 mg Pantoprazole Sodium (Protonix Ec Tab) 40 mg PO DAILY [facility] Last Admin: 03/22/17 10:10 Dose: 40 mg Potassium Phos/Sodium Phos (Neutra-Phos) 1 pkt PO TID [facility] Last Admin: 03/22/17 14:31 Dose: 1 pkt Thiamine HCl (Vitamin B1 Tab) 100 mg PO DAILY [facility] Last Admin: 03/22/17 10:10 Dose: 100 mg Zolpidem Tartrate (Ambien) 5 mg PO HS PRN PRN Reason: Insomnia Last Admin: 03/21/17 21:10 Dose: 5 mg Results - Vital Signs Recent Vital Signs: Last Vital Signs Temp 97.5 F L 03/22/17 15:00 Pulse 74 03/22/17 15:00 Resp 20 03/22/17 15:00 BP 102/62 03/22/17 15:00 Pulse Ox 96 03/22/17 15:00 - Labs Result Diagrams: 03/21/17 11:55 03/22/17 08:27 Labs: Laboratory Results - last 24 hr 03/21/17 03/21/17 03/21/17 17:20 17:20 21:12 Sodium Potassium Chloride Carbon Dioxide Anion Gap BUN Creatinine Est GFR ( Amer) Est GFR (Non-Af Amer) POC Glucose (mg/dL) 81 Random Glucose Serum Osmolality Uric Acid Calcium Phosphorus Magnesium Total Bilirubin AST ALT Alkaline Phosphatase Total Protein Albumin Globulin Albumin/Globulin Ratio Urine Color Yellow Urine Clarity Clear Urine pH 6.0 Ur Specific [place] 1.005 Urine Protein Negative Urine Glucose (UA) Normal Urine Ketones Negative Urine Blood Negative Urine Nitrate Negative Urine Bilirubin Negative Urine Urobilinogen Normal Ur Leukocyte Esterase 1+ H Urine WBC (Auto) 11 H Urine RBC (Auto) 3 Ur Squamous Epith Cells 5 Ur Transition Epith Cell < 1 Urine Bacteria Rare Urine Yeast (Budding) Few H Ur Random Sodium < 5 03/22/17 03/22/17 03/22/17 02:31 07:20 08:27 Sodium 128 L Potassium 4.0 Chloride 101 Carbon Dioxide 21 L Anion Gap 10 BUN 14 Creatinine 0.6 L Est GFR ( Amer) > 60 Est GFR (Non-Af Amer) > 60 POC Glucose (mg/dL) 111 H 143 H Random Glucose 123 H Serum Osmolality Uric Acid 4.7 Calcium 7.6 L Phosphorus 4.0 Magnesium 1.6 Total Bilirubin 1.5 H AST 41 H ALT 54 H Alkaline Phosphatase 79 Total Protein 4.9 L Albumin 2.0 L Globulin 2.9 Albumin/Globulin Ratio 0.7 L Urine Color Urine Clarity Urine pH Ur Specific [place] Urine Protein Urine Glucose (UA) Urine Ketones Urine Blood Urine Nitrate Urine Bilirubin Urine Urobilinogen Ur Leukocyte Esterase Urine WBC (Auto) Urine RBC (Auto) Ur Squamous Epith Cells Ur Transition Epith Cell Urine Bacteria Urine Yeast (Budding) Ur Random Sodium 03/22/17 03/22/17 03/22/17 08:27 11:02 16:03 Sodium Potassium Chloride Carbon Dioxide Anion Gap BUN Creatinine Est GFR ( Amer) Est GFR (Non-Af Amer) POC Glucose (mg/dL) 238 H 102 Random Glucose Serum Osmolality 282 Uric Acid Calcium Phosphorus Magnesium Total Bilirubin AST ALT Alkaline Phosphatase Total Protein Albumin Globulin Albumin/Globulin Ratio Urine Color Urine Clarity Urine pH Ur Specific [place] Urine Protein Urine Glucose (UA) Urine Ketones Urine Blood Urine Nitrate Urine Bilirubin Urine Urobilinogen Ur Leukocyte Esterase Urine WBC (Auto) Urine RBC (Auto) Ur Squamous Epith Cells Ur Transition Epith Cell Urine Bacteria Urine Yeast (Budding) Ur Random Sodium
[2017-03-22] MEDS ORDERED: Sodium Chloride 0.9% 1,000 ML IV SCH (17:30)
--- NOTE | 2017-03-22 21:06 | CON ---
DATE: 03/21/2017 UROLOGY CONSULTATION REQUESTED BY: Orlando Michel MD UROLOGY CONSULTATION FILLED BY: Ingrid Mejia MD REASON FOR CONSULTATION: Difficulty voiding. Urinary frequency. HISTORY OF PRESENT ILLNESS: Patient is in otherwise [id number] health. Patient reports a 2-day history of difficulty voiding. She reports that she has been able to void only in small amounts. Patient reports no hematuria. No dysuria. No burning with urination. Patient has had abdominal pain. No flank pain. Patient reports no history of urolithiasis. She is uncertain regarding history of previous urinary tract infection. The patient also has had weakness of lower extremities. There has been no recent weight loss. The patient reports poor appetite. Mrs. Jones has a history of diabetes mellitus. She has a history of congestive heart failure. Further details per review of the chart. PHYSICAL EXAMINATION: GENERAL: The patient is a well-developed female appearing older than stated age. ABDOMEN: Soft. Mildly distended. Mild suprapubic tenderness. No mass or organomegaly. BACK: No CVA tenderness. LABORATORY DATA: White blood count 5200, hematocrit 33, platelet count 74,000. BUN 8, creatinine 0.5. Glucose 121. IMPRESSION: A 61-year-old female with difficulty voiding. Patient has had poor urinary stream and urinary frequency. She also has abdominal pain. Other problems include anemia and thrombocytopenia. RECOMMENDATIONS AND PLAN: Urinalysis. Urine culture. Bladder scan to check postvoid residual. Patient may require catheterization. Patient may require cystoscopy, cystogram, and cystometrogram. Further therapy to follow according to the results of the above tests. Thank you for recommending the patient for urology consultation. Ingrid Mejia MD cc: Patient's Chart
[2017-03-23] MEDS: (Novolog) Insulin Aspart, Recombinant 100 u/ml 10 ml vial SC SCH ×4 (07:50→21:51)
[2017-03-23 08:54] LABS: ALKALINE PHOSPHATASE 77 U/L (38-126); ALT/SGPT 53 U/L (9-52); AST/SGOT 45 U/L (14-36); BILIRUBIN,TOTAL 1.4 mg/dL (0.2-1.3); BLOOD UREA NITROGEN 15 mg/dL (7-17); CALCIUM 7.5 mg/dl (8.6-10.4); CARBON DIOXIDE 19 mmol/L (22-30); CHLORIDE 101 mmol/L (98-107); GFR AFRICAN-AMERICAN > 60; GLUCOSE,RANDOM 107 mg/dL (65-105); POTASSIUM 4.1 mmol/L (3.6-5.2); SODIUM 127 mmol/L (132-148); TOTAL PROTEIN 5.1 g/dL (6.3-8.3)
[2017-03-23 08:58] LABS: ALB/GLOB RATIO 0.7 (1.0-2.1)
--- NOTE | 2017-03-23 09:41 | CP.PCM.PN ---
Subjective - Date & Time of Evaluation Date of Evaluation: 03/23/17 Time of Evaluation: 10:51 - Subjective Subjective: PGY [address] Michel; all management as per Dr. Michel This patient was seen and examined at bedside with attending physician; patient states that abdomen has been growing over the past few days and is now so large that it is painful and did not let her sleep last night; denies any fevers/ chills, FLORES, CP, SOB, N/V/D, dysuria/freq/urg, or lower extremity pain/swelling. The patient is a chronic EtOH abuser. Objective - Vital Signs/Intake and Output Vital Signs (last 24 hours): Temp Pulse Resp BP Pulse Ox 98.4 F 76 19 109/76 96 03/23/17 08:28 03/23/17 08:28 03/23/17 08:28 03/23/17 08:28 03/23/17 08:28 Intake and Output: 03/23/17 03/23/17 06:59 18:59 Intake Total 1680 Output Total 900 Balance 780 - Medications Medications: Current Medications Tigecycline 50 mg/ Sodium (Chloride) 50 mls @ 100 mls/hr IVPB Q12H [facility] Last Admin: 03/23/17 05:30 Dose: 100 mls/hr Sodium Chloride (Sodium Chloride 0.9%) 1,000 mls @ 100 mls/hr IV .Q10H [facility] Insulin Aspart (Novolog) 0 unit SC ACHS [facility] PRN Reason: Protocol Last Admin: 03/23/17 07:50 Dose: Not Given Insulin Human Isoph/Insulin Regular (Novolin 70/30 (70/30 Units/Ml) 10 Ml) 10 units SC QAM [facility] Last Admin: 03/22/17 10:10 Dose: 10 units Insulin Human Isoph/Insulin Regular (Novolin 70/30 (70/30 Units/Ml) 10 Ml) 5 units SC HS [facility] Last Admin: 03/22/17 21:40 Dose: 5 units Ketorolac Tromethamine (Toradol) 30 mg IVP Q6 PRN PRN Reason: Pain, moderate (4-7) Last Admin: 03/22/17 16:00 Dose: 30 mg Magnesium Oxide (Mag-Ox) 800 mg PO BID [facility] Last Admin: 03/22/17 17:22 Dose: 800 mg Morphine Sulfate (Morphine) 1 mg IVP ONCE ONE Stop: 03/23/17 09:46 Pantoprazole Sodium (Protonix Ec Tab) 40 mg PO DAILY [facility] Last Admin: 03/22/17 10:10 Dose: 40 mg Potassium Phos/Sodium Phos (Neutra-Phos) 1 pkt PO TID [facility] Last Admin: 03/22/17 17:22 Dose: 1 pkt Thiamine HCl (Vitamin B1 Tab) 100 mg PO DAILY [facility] Last Admin: 03/22/17 10:10 Dose: 100 mg Zolpidem Tartrate (Ambien) 5 mg PO HS PRN PRN Reason: Insomnia Last Admin: 03/22/17 21:30 Dose: 5 mg - Labs Labs: 03/21/17 11:55 03/23/17 08:01 PT 16.3 SECONDS (9.7-12.2) H 03/18/17 11:28 INR 1.4 03/18/17 11:28 APTT 39 SECONDS (21-34) H 03/18/17 11:28 - Constitutional Appears: Non-toxic - Head Exam Head Exam: ATRAUMATIC - Eye Exam Eye Exam: EOMI - ENT Exam ENT Exam: Mucous Membranes Moist - Neck Exam Neck Exam: Full ROM. absent: Lymphadenopathy - Respiratory Exam Respiratory Exam: Clear to Ausculation Bilateral, NORMAL BREATHING PATTERN. absent: Rales, Rhonchi, Wheezes - Cardiovascular Exam Cardiovascular Exam: REGULAR RHYTHM - GI/Abdominal Exam GI & Abdominal Exam: Distended, Soft, Tenderness, Normal Bowel Sounds, Organomegaly. absent: Pulsatile Mass, Rebound - Extremities Exam Extremities Exam: Full ROM. absent: Calf Tenderness - Back Exam Back Exam: NORMAL INSPECTION. absent: CVA tenderness (L), CVA tenderness (R) - Neurological Exam Neurological Exam: Alert, Awake, Oriented x3 - Psychiatric Exam Psychiatric exam: Normal Affect - Skin Skin Exam: Warm Assessment and Plan - Assessment and Plan (Free Text) Assessment: Difficulty urinating Post void bladder scan shows about [address] Ingrid Hwang consulted. Pt voided 400cc overnight per record Tamsulosin f/u Uro recs Hyponatremia; patient is 3rd spacing Na is 127, fluid restricted diet, Nephrology consult urine lytes patient will go for paracentesis today; labs and consult placed Ascites 2/2 to Liver Failure 2/2 to Chronic EtOH abuse MELD Score 17 on admission Downtrending, continue to monitor GI Dr. Zendejas consulted, help appreciated. Abdominal ultrasound showed upper abdominal ascites and thickened gallbladder wall. patient is becoming more hyponatremic and ascites is worsening fluid analysis ordered pain control Hep Panel negative most likely 2/2 to chronic EtOH abuse Anemia; chronic and most likely 2/2 to chronic etoh abuse 03/21: IV Ferrict. UTI (urinary tract infection); improving Tigecycline as per Dr. Dos Santos ESBL E. Coli in urine culture. Dr. Dos Santos consulted Alcohol abuse; chronic replaced Mag today, continue thiamine and folic acid thiamine and folic acid, replace her potassium and mag today Thrombocytopenia; chronic most likely secondary to etoh abuse Diabetes; chronic sliding scale and her Novolin 70/30 5 units HS and 10 units AM Prophylactic measure hold VTE due to low plt count protonix and SCDs for now PT/OT evaluation for placement All management as per Dr. Michel
[2017-03-23] MEDS: Sodium Chloride 0.9% 1,000 ML IV SCH ×2 (09:52→21:52)
[2017-03-23] MEDS: Pantoprazole 40 mg EC Tab PO SCH (09:53)
[2017-03-23] MEDS: Potassium & Sodium Phosphate PO SCH ×3 (09:55→17:33)
[2017-03-23] MEDS: (Novolin 70/30) NPH/Regular 70/30 Units/ml 10 ml vial SC SCH ×2 (09:55→21:51)
[2017-03-23] MEDS: Magnesium Oxide 400 mg Tab UD PO SCH ×2 (09:55→17:33)
[2017-03-23] MEDS ORDERED: Lidocaine 2% Inj (20ml) ONE (12:48)
--- NOTE | 2017-03-23 14:38 | PN ---
DATE: LOCATION: [facility], bed A. SUBJECTIVE: This is a 61-year-old female seen and examined in rounds without significant clinical changes. The entire chart is reviewed including but not limited to the most recent lab and radiology study results, current and previous medication list, current and previous medical events. Case discussed with the staff at length. The patient is still complaining of generalized weakness and malaise. LABORATORY DATA: Today's lab showed low sodium of 127, low CO2 content of 19 with blood glucose level elevated to 107, low calcium of 5.7, high total protein 1.4 with mildly elevated AST and ALT of 45 and 53 with low albumin of 2.0. The patient's oral intake still inadequate. PHYSICAL EXAMINATION GENERAL: A 61-year-old female, awake, alert. VITAL SIGNS: Afebrile with pulse of 72, respiratory rate 20 to 22, with blood pressure of 112/70. HEENT: Showed pale, dry oral mucous membrane, nonicteric sclerae. LUNGS: Scattered crepitation with a few rhonchi bilaterally. ABDOMEN: Soft. Bowel sounds are present with slight generalized tenderness. No mass or organomegaly. No rebound tenderness or guarding. Small amount of ascites seen. EXTREMITIES: With slight lower extremities edematous changes with tenderness. NEUROLOGIC: No reported new neurological deficits, sensory or motor. IMPRESSION: 1. Difficulty of urination, seen by Urology apartment leasing consultant. 2. Electrolyte imbalance with hyponatremia, hypocalcemia inducing myositis and difficulty walking, most likely. 3. Alcohol abuse with evidence of portal hypertension, abnormal liver function tests and small amount of ascites. Anemia secondary to above, most likely. 4. Thrombocytopenia secondary to above. 5. Malnutrition with hypoalbuminemia, hypoproteinemia as well as hypomagnesemia. SUGGESTIONS: 1. Continue current management. 2. underlying electrolyte imbalance, to be treated aggressively. 3. Due to the patient's coagulopathy, vitamin K subcu to be ordered. 4. Endoscopic evaluation of the upper and the lower GI tract to be kept in mind when the patient is more stable clinically due to her persistent anemia. 5. Further recommendation to follow. Wicho Potter MD
--- NOTE | 2017-03-23 14:43 | US ---
Date of Procedure: 03/23/2017 PROCEDURE: Ultrasound-guided paracentesis, CPT 86318 Medications: 7 cc 1% Lidocaine HISTORY: Ascites, abdominal pain TECHNIQUE: Following informed consent , the patient was placed supine on the stretcher and the site was marked. A limited abdominal ultrasound was performed that showed a small amount of intra-abdominal fluid. Procedural time out was called and the Pt's abdomen was marked and prepped and draped in the usual sterile fashion. Ultrasound-guided large volume paracentesis performed. A total of 1.1liters of straw colored fluid was removed without complication. IMPRESSION: Ultrasound-guided paracentesis.
--- NOTE | 2017-03-23 14:51 | CP.PCM.PN ---
Subjective - Date & Time of Evaluation Date of Evaluation: 03/23/17 Time of Evaluation: 14:49 - Subjective Subjective: Nephrology Consultation: Assessment: Stable Hypovolemic hyponatremia (urine Na <5) and contibuted by infusion of hypotonic fluids Hypomagnesemia, Anemia diabetes Mellitus hypertension, ex smoker, chronic etoh abuse and chronic pancreatitis UTI, back pain Plan BP on low side hence d/c clonidine continue with Normal saline avoid correction in serum Na >6-8 meq/24 hr. no need for hypertonic saline at this time supplemented magneseium Monitor Input/Output, daily weights and renal function with basic metabolic panel Glycemic control Further work up/management as per primary team may consider adding aldactone for her portal HTN Thanks for allowing me to participate in care of your patient. Will follow patient with you. Please call if any Qs Dr Jaya Flynn Office: [phone] Chief Complaint; Back pain Reason for consult: hyponatremia HPI: Pt is a 61 y/o F with hx of diabetes Mellitus hypertension, ex smoker, chronic etoh abuse and chronic pancreatitis initially presented with complaints of dysuria and being treated with antibiotics for UTI. she was getting D5/0.45% saline and noted to have decreased serum Na to 124 hence renal consult requested pt c/o low back pain Denies chest pain, palpitation, shortness of breath, leg swelling Denies blood or bubbles in urine. has duong and she is not comfortable with it ROS: Constitutional Symptoms: Denies fever. No chills. No Recent Weight Changes Eyes: denies change in vision, denies watery eyes, denies double vision Ears/Nose/Mouth/Throat: Denies Abnormal Taste. No Bad breath no Bad Taste. Cardiovascular: No chest pain. There is no shortness of breath. No palpitations. Pulmonary: No shortness of breath no cough. Gastrointestinal: denies abdominal pain No nausea. No vomiting. Denies change in bowel habits. Denies Bleeding Genitourinary: has duong and she is not comfortable with it Neurological: Denies headaches. No dizziness. Denies loss of balance. c/o overall weakness, denies tingling/numbness Dermatological: No Rash or Bruising or ulcers. Psychiatric: Denies Anxiety. No depression. Denies hallucinations. Rheumatological: c/o back pain. Denies Joint swelling Endocrine: Denies tiredness/Fatigue denies Heat/Cold Intolerance. All other negative Physical Examination: General Appearance: comfortable, in no acute respiratory distress, co-operative . irritable. cachexic Vitals reviewed and noted as below Head; Atraumatic, normocephalic ENT: no ulcers no thrush. Tongue is midline/dry. Oropharynx: no rash or ulcers. EYES: Pupils are equal, round and reactive to light accommodation. Eye muscles and extraocular movement intact. Sclera is anicteric. Neck; supple no lymphadenopathy, no thyromegaly or bruit Lungs: Normal respiratory rate/effort. Breath sounds bilateral equal and clear Heart: Normal rate. s1s2 normal. No rub or gallop. Extremities: no edema. No varicose veins Neurological: Patient is alert, awake and oriented to person, place and time. No focal deficit. Strength bilateral appropriate and equal Skin: Warm and dry. Normal turgor. No rash. Palpitation: Normal elasticity for age Abdomen: Abdomen is soft. Bowel sounds +. There is no abdominal tenderness, no guarding/rigidity no organomegaly ? ascites Psych: normal insight and normal affect/mood MSK: no joint tenderness or swelling. Digits and nails normal, no deformity : kidney or bladder not palpable Labs/imaging/EKG reviewed. Past medical history, past surgical history, family history, social history, allergy reviewed and noted as below Family hx: no hx of CKD. Rest non-contributory recent echo: normal LVEF CT abdomen: chronic pancreatitis, liver disease, increased echogenic kidneys. has compression fractures in vertebra Objective - Vital Signs/Intake and Output Vital Signs (last 24 hours): Temp Pulse Resp BP Pulse Ox 98.4 F 76 19 109/76 96 03/23/17 08:28 03/23/17 08:28 03/23/17 08:28 03/23/17 09:46 03/23/17 08:28 Intake and Output: 03/23/17 03/23/17 06:59 18:59 Intake Total 1680 Output Total 900 Balance 780 - Medications Medications: Current Medications Tigecycline 50 mg/ Sodium (Chloride) 50 mls @ 100 mls/hr IVPB Q12H [facility] Last Admin: 03/23/17 05:30 Dose: 100 mls/hr Sodium Chloride (Sodium Chloride 0.9%) 1,000 mls @ 100 mls/hr IV .Q10H [facility] Last Admin: 03/23/17 09:52 Dose: 100 mls/hr Insulin Aspart (Novolog) 0 unit SC ACHS [facility] PRN Reason: Protocol Last Admin: 03/23/17 11:50 Dose: Not Given Insulin Human Isoph/Insulin Regular (Novolin 70/30 (70/30 Units/Ml) 10 Ml) 10 units SC QAM [facility] Last Admin: 03/23/17 09:55 Dose: Not Given Insulin Human Isoph/Insulin Regular (Novolin 70/30 (70/30 Units/Ml) 10 Ml) 5 units SC HS [facility] Last Admin: 03/22/17 21:40 Dose: 5 units Ketorolac Tromethamine (Toradol) 30 mg IVP Q6 PRN PRN Reason: Pain, moderate (4-7) Last Admin: 03/23/17 13:14 Dose: 30 mg Magnesium Oxide (Mag-Ox) 800 mg PO BID [facility] Last Admin: 03/23/17 09:55 Dose: 800 mg Pantoprazole Sodium (Protonix Ec Tab) 40 mg PO DAILY [facility] Last Admin: 03/23/17 09:53 Dose: 40 mg Potassium Phos/Sodium Phos (Neutra-Phos) 1 pkt PO TID [facility] Last Admin: 03/23/17 13:13 Dose: 1 pkt Sodium Bicarbonate (Sodium Bicarbonate Tab) 650 mg PO BID [facility] Last Admin: 03/23/17 10:51 Dose: 650 mg Thiamine HCl (Vitamin B1 Tab) 100 mg PO DAILY [facility] Last Admin: 03/23/17 09:53 Dose: 100 mg Zolpidem Tartrate (Ambien) 5 mg PO HS PRN PRN Reason: Insomnia Last Admin: 03/22/17 21:30 Dose: 5 mg - Labs Labs: 03/21/17 11:55 03/23/17 08:01 PT 16.3 SECONDS (9.7-12.2) H 03/18/17 11:28 INR 1.4 03/18/17 11:28 APTT 39 SECONDS (21-34) H 03/18/17 11:28
[2017-03-23 16:20] LABS: BODY FLUID TYPE PERITONEAL
[2017-03-23 16:29] LABS: BF GROSS APPEARANCE CLEAR (CLEAR)
--- NOTE | 2017-03-23 18:51 | CP.PCM.PN ---
Subjective - Date & Time of Evaluation Date of Evaluation: 03/23/17 Time of Evaluation: 08:00 - Subjective Subjective: no fever iv infusing well weak nad Objective - Vital Signs/Intake and Output Vital Signs (last 24 hours): Temp Pulse Resp BP Pulse Ox 97.6 F 84 20 101/66 96 03/23/17 15:00 03/23/17 15:00 03/23/17 15:00 03/23/17 15:00 03/23/17 15:00 Intake and Output: 03/23/17 03/23/17 06:59 18:59 Intake Total 1680 1280 Output Total 900 1200 Balance 780 80 - Medications Medications: Current Medications Tigecycline 50 mg/ Sodium (Chloride) 50 mls @ 100 mls/hr IVPB Q12H [facility] Stop: 03/23/17 19:00 Last Admin: 03/23/17 17:32 Dose: 100 mls/hr Sodium Chloride (Sodium Chloride 0.9%) 1,000 mls @ 100 mls/hr IV .Q10H [facility] Last Admin: 03/23/17 09:52 Dose: 100 mls/hr Tigecycline 50 mg/ Sodium (Chloride) 100 mls @ 100 mls/hr IVPB Q12H [facility] Insulin Aspart (Novolog) 0 unit SC ACHS [facility] PRN Reason: Protocol Last Admin: 03/23/17 17:17 Dose: Not Given Insulin Human Isoph/Insulin Regular (Novolin 70/30 (70/30 Units/Ml) 10 Ml) [facility] Last Admin: 03/23/17 09:55 Dose: Not Given Insulin Human Isoph/Insulin Regular (Novolin 70/30 (70/30 Units/Ml) 10 Ml) 5 units SC [facility] Last Admin: 03/22/17 21:40 Dose: 5 units Ketorolac Tromethamine (Toradol) 30 mg IVP Q6 PRN PRN Reason: Pain, moderate (4-7) Last Admin: 03/23/17 13:14 Dose: 30 mg Magnesium Oxide (Mag-Ox) 800 mg PO BID [facility] Last Admin: 03/23/17 17:33 Dose: 800 mg Morphine Sulfate (Morphine) 1 mg IVP Q4H PRN PRN Reason: Pain, moderate (4-7) Last Admin: 03/23/17 18:48 Dose: 1 mg Pantoprazole Sodium (Protonix Ec Tab) 40 mg PO DAILY [facility] Last Admin: 03/23/17 09:53 Dose: 40 mg Potassium Phos/Sodium Phos (Neutra-Phos) 1 pkt PO TID [facility] Last Admin: 03/23/17 17:33 Dose: 1 pkt Sodium Bicarbonate (Sodium Bicarbonate Tab) 650 mg PO BID [facility] Last Admin: 03/23/17 17:33 Dose: 650 mg Thiamine HCl (Vitamin B1 Tab) 100 mg PO DAILY [facility] Last Admin: 03/23/17 09:53 Dose: 100 mg Zolpidem Tartrate (Ambien) 5 mg PO HS PRN PRN Reason: Insomnia Last Admin: 03/22/17 21:30 Dose: 5 mg - Labs Labs: 03/21/17 11:55 03/23/17 08:01 PT 16.3 SECONDS (9.7-12.2) H 03/18/17 11:28 INR 1.4 03/18/17 11:28 APTT 39 SECONDS (21-34) H 03/18/17 11:28 - Constitutional Appears: Non-toxic, Chronically Ill - Head Exam Head Exam: NORMOCEPHALIC - Eye Exam Eye Exam: PERRL - ENT Exam ENT Exam: Mucous Membranes Dry - Neck Exam Neck Exam: absent: Lymphadenopathy - Respiratory Exam Respiratory Exam: Decreased Breath Sounds - Cardiovascular Exam Cardiovascular Exam: REGULAR RHYTHM - GI/Abdominal Exam GI & Abdominal Exam: Distended, Soft - Rectal Exam Rectal Exam: Deferred - Extremities Exam Extremities Exam: absent: Joint Swelling, Pedal Edema, Tenderness - Back Exam Back Exam: absent: CVA tenderness (L), CVA tenderness (R) - Neurological Exam Neurological Exam: Alert, Awake, CN II-XII Intact, Motor Sensory Deficit Neuro motor strength exam: Left Upper Extremity: 4, Right Upper Extremity: 4, Left Lower Extremity: 2/1, Right Lower Extremity: 2/1 - Psychiatric Exam Psychiatric exam: Depressed - Skin Skin Exam: Dry Assessment and Plan (1) Difficulty urinating Status: Acute (2) Difficulty walking Status: Acute (3) UTI (urinary tract infection) Status: Acute
[2017-03-24] MEDS: Sodium Chloride 0.9% 1,000 ML IV SCH ×2 (05:50→14:35)
[2017-03-24 07:39] LABS: BASO # 0.1 K/uL (0.0-0.2); BASO % 0.8 % (0.0-2.0); EOS # 0.2 K/uL (0.0-0.7); EOS % 2.2 % (0.0-4.0); HEMATOCRIT 29.7 % (34.0-47.0); LYMPH % 14.8 % (20.0-40.0); MEAN CORPUSCULAR HEMOGLOBIN 38.5 pg (27.0-31.0); MEAN CORPUSCULAR HGB CONC 34.2 g/dL (33.0-37.0); MEAN PLATELET VOLUME 10.5 fL (7.2-11.7); MONO % 13.9 % (0.0-10.0); NRBC % 0.2 % (0.0-2.0); RED CELL DISTRIBUTION WIDTH 13.7 % (11.5-14.5); WHITE BLOOD COUNT 6.9 K/uL (4.8-10.8)
[2017-03-24 07:46] LABS: MEAN CELL VOLUME 112.5 fL (81.0-99.0)
[2017-03-24] MEDS: (Novolog) Insulin Aspart, Recombinant 100 u/ml 10 ml vial SC SCH ×4 (08:04→21:24)
[2017-03-24 08:09] LABS: ALB/GLOB RATIO 0.7 (1.0-2.1); ALKALINE PHOSPHATASE 75 U/L (38-126); ALT/SGPT 46 U/L (9-52); AST/SGOT 40 U/L (14-36); BILIRUBIN,TOTAL 1.6 mg/dL (0.2-1.3); BLOOD UREA NITROGEN 17 mg/dL (7-17); CALCIUM 7.2 mg/dl (8.6-10.4); CARBON DIOXIDE 23 mmol/L (22-30); CHLORIDE 99 mmol/L (98-107); GFR AFRICAN-AMERICAN > 60; GLUCOSE,RANDOM 96 mg/dL (65-105); POTASSIUM 3.9 mmol/L (3.6-5.2); SODIUM 128 mmol/L (132-148); TOTAL PROTEIN 5.1 g/dL (6.3-8.3)
[2017-03-24] MEDS: Pantoprazole 40 mg EC Tab PO SCH (09:54)
[2017-03-24] MEDS: Potassium & Sodium Phosphate PO SCH ×3 (09:54→17:30)
[2017-03-24] MEDS: Magnesium Oxide 400 mg Tab UD PO SCH ×2 (09:55→17:30)
[2017-03-24] MEDS: (Novolin 70/30) NPH/Regular 70/30 Units/ml 10 ml vial SC SCH ×2 (09:55→21:23)
--- NOTE | 2017-03-24 10:57 | PN ---
DATE: LOCATION: [facility]. SUBJECTIVE: This is a 61-year-old female seen and examined in rounds without significant clinical changes with the complaint of generalized abdominal and body ache with status post abdominal paracentesis guided by ultrasound done by the IR staff with removal of about 1 liter of fluid. Results of the ascitic fluid analysis is still pending. Patient offered no significant new clinical changes. Today's lab showed hemoglobin low of 10.2, hematocrit 29.7 with thrombocytopenia of 49 with decreased sodium 128, increased glucose 114, low calcium 7.2, increased total bilirubin to 1.6, AST 40, ALT normal 46 with low albumin 2.1, low total protein 5.1. PHYSICAL EXAMINATION GENERAL: A 61 years old female. VITAL SIGNS: Afebrile with pulse of 90, respiratory rate 20 to 22, blood pressure 106/66. HEENT: Showed pale, dry oral mucous membrane. Slightly icteric sclerae bilaterally. HEART: Positive S1 and S2 with increased rate. ABDOMEN: Soft with less distention and less ascites. No mass or organomegaly, but generalized mild tenderness. EXTREMITIES: with slight lower extremities edematous changes. NEUROLOGIC: No reported new neurological deficits, sensory or motor. Patient is still complaining of inability to walk adequately and difficulty of urination. IMPRESSION: 1. Mildly abnormal liver function tests but with known history of alcoholism and probable alcoholic liver disease with portal hypertension and ascites. 2. Difficulty of urination. 3. Electrolyte imbalance with malnutrition and hypoalbuminemia. 4. Thrombocytopenia secondary to above. 5. Anemia secondary to above SUGGESTIONS: 1. Continue current management. 2. Correct patient's electrolyte imbalance due to her hyponitremia, hypocalcemia. 3. Follow up on ascitic fluid results. 4. No aggressive GI workup in the meantime until the patient is more stable clinically. Wicho Potter MD
--- NOTE | 2017-03-24 17:11 | CP.PCM.PN ---
Subjective - Date & Time of Evaluation Date of Evaluation: 03/24/17 Time of Evaluation: 17:10 - Subjective Subjective: Follow up Nephrology Consultation: Assessment: Stable Hypovolemic hyponatremia (urine Na <5) and contributed by infusion of hypotonic fluids, cirrhosis Hypomagnesemia, Anemia diabetes Mellitus hypertension, ex smoker, chronic etoh abuse and chronic pancreatitis UTI, back pain Plan BP on low side hence d/c clonidine continue with Normal saline avoid correction in serum Na >6-8 meq/24 hr. no need for hypertonic saline at this time supplemented magnesium Monitor Input/Output, daily weights and renal function with basic metabolic panel Glycemic control Further work up/management as per primary team may consider adding aldactone for her portal HTN Thanks for allowing me to participate in care of your patient. Will follow patient with you. Please call if any Qs Dr Jaya Flynn Office: [phone] Chief Complaint; Back pain Reason for consult: hyponatremia HPI: Pt is a 61 y/o F with hx of diabetes Mellitus hypertension, ex smoker, chronic etoh abuse and chronic pancreatitis initially presented with complaints of dysuria and being treated with antibiotics for UTI. she was getting D5/0.45% saline and noted to have decreased serum Na to 124 hence renal consult requested pt c/o low back pain Denies chest pain, palpitation, shortness of breath, leg swelling Denies blood or bubbles in urine. has duong and she is not comfortable with it Physical Examination: General Appearance: comfortable, in no acute respiratory distress, co-operative . irritable. cachexic Vitals reviewed and noted as below Head; Atraumatic, normocephalic ENT: no ulcers no thrush. Tongue is midline/dry. Oropharynx: no rash or ulcers. EYES: Pupils are equal, round and reactive to light accommodation. Eye muscles and extraocular movement intact. Sclera is anicteric. Neck; supple no lymphadenopathy, no thyromegaly or bruit Lungs: Normal respiratory rate/effort. Breath sounds bilateral equal and clear Heart: Normal rate. s1s2 normal. No rub or gallop. Extremities: no edema. No varicose veins Neurological: Patient is alert, awake and oriented to person, place and time. No focal deficit. Strength bilateral appropriate and equal Skin: Warm and dry. Normal turgor. No rash. Palpitation: Normal elasticity for age Abdomen: Abdomen is soft. Bowel sounds +. There is no abdominal tenderness, no guarding/rigidity no organomegaly has ascites Psych: normal insight and normal affect/mood MSK: no joint tenderness or swelling. Digits and nails normal, no deformity : kidney or bladder not palpable Labs/imaging/EKG reviewed. Past medical history, past surgical history, family history, social history, allergy reviewed and noted as below Family hx: no hx of CKD. Rest non-contributory recent echo: normal LVEF CT abdomen: chronic pancreatitis, liver disease, increased echogenic kidneys. has compression fractures in vertebra Objective - Vital Signs/Intake and Output Vital Signs (last 24 hours): Temp Pulse Resp BP Pulse Ox 97.4 F L 102 H 20 130/72 95 03/24/17 08:44 03/24/17 08:44 03/24/17 08:44 03/24/17 08:44 03/24/17 08:44 Intake and Output: 03/24/17 03/24/17 06:59 18:59 Intake Total 1900 1400 Output Total 900 400 Balance 1000 1000 - Medications Medications: Current Medications Sodium Chloride (Sodium Chloride 0.9%) 1,000 mls @ 100 mls/hr IV .Q10H [facility] Last Admin: 03/24/17 14:35 Dose: 100 mls/hr Tigecycline 50 mg/ Sodium (Chloride) 100 mls @ 100 mls/hr IVPB Q12H [facility] Last Admin: 03/24/17 05:49 Dose: 100 mls/hr Insulin Aspart (Novolog) 0 unit SC ACHS [facility] PRN Reason: Protocol Last Admin: 03/24/17 16:54 Dose: Not Given Insulin Human Isoph/Insulin Regular (Novolin 70/30 (70/30 Units/Ml) 10 Ml) 10 units SC QAM [facility] Last Admin: 03/24/17 09:55 Dose: Not Given Insulin Human Isoph/Insulin Regular (Novolin 70/30 (70/30 Units/Ml) 10 Ml) 5 units SC HS [facility] Last Admin: 03/23/17 21:51 Dose: Not Given Magnesium Oxide (Mag-Ox) 800 mg PO BID [facility] Last Admin: 03/24/17 09:55 Dose: 800 mg Morphine Sulfate (Morphine) 1 mg IVP Q4H PRN PRN Reason: Pain, moderate (4-7) Last Admin: 03/24/17 14:38 Dose: 1 mg Pantoprazole Sodium (Protonix Ec Tab) 40 mg PO DAILY [facility] Last Admin: 03/24/17 09:54 Dose: 40 mg Potassium Phos/Sodium Phos (Neutra-Phos) 1 pkt PO TID [facility] Last Admin: 03/24/17 13:36 Dose: 1 pkt Sodium Bicarbonate (Sodium Bicarbonate Tab) 650 mg PO BID [facility] Last Admin: 03/24/17 09:54 Dose: 650 mg Thiamine HCl (Vitamin B1 Tab) 100 mg PO DAILY [facility] Last Admin: 03/24/17 09:54 Dose: 100 mg Zolpidem Tartrate (Ambien) 5 mg PO HS PRN PRN Reason: Insomnia Last Admin: 03/23/17 21:50 Dose: 5 mg - Labs Labs: 03/24/17 07:06 03/24/17 07:06 PT 16.3 SECONDS (9.7-12.2) H 03/18/17 11:28 INR 1.4 03/18/17 11:28 APTT 39 SECONDS (21-34) H 03/18/17 11:28
[2017-03-25] MEDS: Sodium Chloride 0.9% 1,000 ML IV SCH (01:55)
[2017-03-25] MEDS: (Novolog) Insulin Aspart, Recombinant 100 u/ml 10 ml vial SC SCH ×4 (07:57→21:34)
[2017-03-25 08:07] LABS: BASO # 0.1 K/uL (0.0-0.2); BASO % 1.1 % (0.0-2.0); EOS # 0.2 K/uL (0.0-0.7); EOS % 2.4 % (0.0-4.0); HEMATOCRIT 32.7 % (34.0-47.0); LYMPH # 1.6 K/uL (1.0-4.3); LYMPH % 19.9 % (20.0-40.0); MEAN CELL VOLUME 112.1 fL (81.0-99.0); MEAN CORPUSCULAR HEMOGLOBIN 38.4 pg (27.0-31.0); MEAN CORPUSCULAR HGB CONC 34.3 g/dL (33.0-37.0); MEAN PLATELET VOLUME 10.7 fL (7.2-11.7); MONO % 12.8 % (0.0-10.0); NRBC % 0.1 % (0.0-2.0); RED CELL DISTRIBUTION WIDTH 13.8 % (11.5-14.5)
[2017-03-25 08:42] LABS: ALB/GLOB RATIO 0.6 (1.0-2.1); ALKALINE PHOSPHATASE 85 U/L (38-126); ALT/SGPT 45 U/L (9-52); AST/SGOT 52 U/L (14-36); BILIRUBIN,TOTAL 1.8 mg/dL (0.2-1.3); BLOOD UREA NITROGEN 14 mg/dL (7-17); CALCIUM 7.3 mg/dl (8.6-10.4); CARBON DIOXIDE 23 mmol/L (22-30); CHLORIDE 100 mmol/L (98-107); GFR AFRICAN-AMERICAN > 60; GLUCOSE,RANDOM 80 mg/dL (65-105); POTASSIUM 4.1 mmol/L (3.6-5.2); SODIUM 129 mmol/L (132-148); TOTAL PROTEIN 5.7 g/dL (6.3-8.3)
[2017-03-25] MEDS: Magnesium Oxide 400 mg Tab UD PO SCH ×2 (10:44→17:31)
[2017-03-25] MEDS: Pantoprazole 40 mg EC Tab PO SCH (10:45)
[2017-03-25] MEDS: Potassium & Sodium Phosphate PO SCH ×3 (10:45→17:29)
[2017-03-25] MEDS: (Novolin 70/30) NPH/Regular 70/30 Units/ml 10 ml vial SC SCH ×2 (10:45→21:36)
--- NOTE | 2017-03-25 12:27 | PN ---
SUBJECTIVE: This is a 61-year-old female with status post abdominal paracentesis guided by ultrasound, seen and examined in rounds without significant clinical changes or reported active bleeding, but consistent complaint of generalized weakness and malaise with a complaint of lower back pain with some nausea. The entire chart is reviewed, including but not limited to the most recent lab results and today's lab showed blood glucose level of 88. PHYSICAL EXAMINATION: GENERAL: This 61-year-old female. VITAL SIGNS: Afebrile with pulse of 100, respiratory rate 20 to 22, blood pressure 130/92. HEENT: Showed pale, dry oral mucoid membrane. Nonicteric sclerae. LUNGS: Few scattered crepitation, decreased air entry at bases. HEART: Positive S1 and S2. ABDOMEN: Soft. Bowel sounds are present with small amount of ascites and slight tenderness. No mass or organomegaly. No rebound tenderness or guarding. RECTAL: The patient refused. EXTREMITIES: With slight muscle tenderness. No edema, clubbing, or cyanosis. NEUROLOGIC: No reported new neurological deficits, sensory, or motor. However, it has to be mentioned that the patient is still complaining of some difficulty of walking. IMPRESSION: 1. History of alcoholism with slightly elevated liver function test, gradually improving. 2. Unknown history of alcohol-induced liver cirrhosis, portal hypertension with ascites with status post paracentesis. 3. Difficulty of urination by recent history. 4. Electrolyte imbalance. 5. Thrombocytopenia, secondary to above. 6. Anemia, secondary to above. 7. Malnutrition type albuminemia. SUGGESTION: 1. Continue current management. 2. Correct an underlying electrolyte imbalance. 3. Peripheral hyperalimentation. 4. If the patient's symptoms persist, then MRCP to be scheduled. Wicho Potter MD cc: Wicho Potter MD
--- NOTE | 2017-03-25 14:58 | CP.PCM.PN ---
Subjective - Date & Time of Evaluation Date of Evaluation: 03/25/17 Time of Evaluation: 14:57 - Subjective Subjective: Follow up Nephrology Consultation: Assessment: Stable Hypovolemic hyponatremia (urine Na <5) and contributed by infusion of hypotonic fluids, cirrhosis Hypomagnesemia, Anemia diabetes Mellitus hypertension, ex smoker, chronic etoh abuse and chronic pancreatitis UTI, back pain Plan continue with Normal saline as IVF. avoid hypotonic fluids avoid correction in serum Na >6-8 meq/24 hr. no need for hypertonic saline at this time supplemented magnesium Monitor Input/Output, daily weights and renal function with basic metabolic panel Glycemic control Further work up/management as per primary team added aldactone for her portal HTN Thanks for allowing me to participate in care of your patient. Will follow patient with you. Please call if any Qs Dr Jaya Flynn Office: [phone] Chief Complaint; Back pain Reason for consult: hyponatremia HPI: Pt is a 61 y/o F with hx of diabetes Mellitus hypertension, ex smoker, chronic etoh abuse and chronic pancreatitis initially presented with complaints of dysuria and being treated with antibiotics for UTI. she was getting D5/0.45% saline and noted to have decreased serum Na to 124 hence renal consult requested pt c/o low back pain Denies chest pain, palpitation, shortness of breath, leg swelling Denies blood or bubbles in urine. has duong Physical Examination: General Appearance: comfortable, in no acute respiratory distress, co-operative . cachexic Vitals reviewed and noted as below Head; Atraumatic, normocephalic ENT: no ulcers no thrush. Tongue is midline/dry. Oropharynx: no rash or ulcers. EYES: Pupils are equal, round and reactive to light accommodation. Eye muscles and extraocular movement intact. Sclera is anicteric. Neck; supple no lymphadenopathy, no thyromegaly or bruit Lungs: Normal respiratory rate/effort. Breath sounds bilateral equal and clear Heart: Normal rate. s1s2 normal. No rub or gallop. Extremities: no edema. No varicose veins Neurological: Patient is alert, awake and oriented to person, place and time. No focal deficit. Strength bilateral appropriate and equal Skin: Warm and dry. Normal turgor. No rash. Palpitation: Normal elasticity for age Abdomen: Abdomen is soft. Bowel sounds +. There is no abdominal tenderness, no guarding/rigidity no organomegaly has ascites Psych: normal insight and normal affect/mood MSK: no joint tenderness or swelling. Digits and nails normal, no deformity : kidney or bladder not palpable Labs/imaging/EKG reviewed. Past medical history, past surgical history, family history, social history, allergy reviewed and noted as below Family hx: no hx of CKD. Rest non-contributory recent echo: normal LVEF CT abdomen: chronic pancreatitis, liver disease, increased echogenic kidneys. has compression fractures in vertebra Objective - Vital Signs/Intake and Output Vital Signs (last 24 hours): Temp Pulse Resp BP Pulse Ox 98 F 88 20 143/90 84 L 03/25/17 09:53 03/25/17 09:53 03/25/17 09:53 03/25/17 09:53 03/25/17 09:53 Intake and Output: 03/25/17 03/25/17 06:59 18:59 Intake Total 2370 1200 Output Total 1200 400 Balance 1170 800 - Medications Medications: Current Medications Sodium Chloride (Sodium Chloride 0.9%) 1,000 mls @ 100 mls/hr IV .Q10H [facility] Last Admin: 03/25/17 01:55 Dose: 100 mls/hr Tigecycline 50 mg/ Sodium (Chloride) 100 mls @ 100 mls/hr IVPB Q12H [facility] Last Admin: 03/25/17 05:30 Dose: 100 mls/hr Insulin Aspart (Novolog) 0 unit SC ACHS [facility] PRN Reason: Protocol Last Admin: 03/25/17 12:03 Dose: Not Given Insulin Human Isoph/Insulin Regular (Novolin 70/30 (70/30 Units/Ml) 10 Ml) 10 units SC QAM [facility] Last Admin: 03/25/17 10:45 Dose: Not Given Insulin Human Isoph/Insulin Regular (Novolin 70/30 (70/30 Units/Ml) 10 Ml) 5 units SC HS [facility] Last Admin: 03/24/17 21:23 Dose: 5 units Magnesium Oxide (Mag-Ox) 800 mg PO BID [facility] Last Admin: 03/25/17 10:44 Dose: 800 mg Morphine Sulfate (Morphine) 1 mg IVP Q4H PRN PRN Reason: Pain, moderate (4-7) Last Admin: 03/25/17 13:16 Dose: 1 mg Pantoprazole Sodium (Protonix Ec Tab) 40 mg PO DAILY [facility] Last Admin: 03/25/17 10:45 Dose: 40 mg Potassium Phos/Sodium Phos (Neutra-Phos) 1 pkt PO TID [facility] Last Admin: 03/25/17 13:23 Dose: 1 pkt Sodium Bicarbonate (Sodium Bicarbonate Tab) 650 mg PO BID [facility] Last Admin: 03/25/17 10:45 Dose: 650 mg Spironolactone (Aldactone) 50 mg PO DAILY [facility] Last Admin: 03/25/17 10:44 Dose: 50 mg Thiamine HCl (Vitamin B1 Tab) 100 mg PO DAILY [facility] Last Admin: 03/25/17 10:44 Dose: 100 mg Zolpidem Tartrate (Ambien) 5 mg PO HS PRN PRN Reason: Insomnia Last Admin: 03/24/17 21:23 Dose: 5 mg - Labs Labs: 03/25/17 07:45 03/25/17 07:45 PT 16.3 SECONDS (9.7-12.2) H 03/18/17 11:28 INR 1.4 03/18/17 11:28 APTT 39 SECONDS (21-34) H 03/18/17 11:28
--- NOTE | 2017-03-25 17:24 | CP.PCM.PN ---
Subjective - Date & Time of Evaluation Date of Evaluation: 03/25/17 Time of Evaluation: 09:00 - Subjective Subjective: c/o pain no fever alert awake Objective - Vital Signs/Intake and Output Vital Signs (last 24 hours): Temp Pulse Resp BP Pulse Ox 97.4 F L 114 H 20 122/78 97 03/25/17 16:59 03/25/17 16:59 03/25/17 16:59 03/25/17 16:59 03/25/17 16:59 Intake and Output: 03/25/17 03/25/17 06:59 18:59 Intake Total 2370 1200 Output Total 1200 400 Balance 1170 800 - Medications Medications: Current Medications Tigecycline 50 mg/ Sodium (Chloride) 100 mls @ 100 mls/hr IVPB Q12H [facility] Last Admin: 03/25/17 05:30 Dose: 100 mls/hr Insulin Aspart (Novolog) 0 unit SC ACHS [facility] PRN Reason: Protocol Last Admin: 03/25/17 12:03 Dose: Not Given Insulin Human Isoph/Insulin Regular (Novolin 70/30 (70/30 Units/Ml) 10 Ml) 10 units SC QAM [facility] Last Admin: 03/25/17 10:45 Dose: Not Given Insulin Human Isoph/Insulin Regular (Novolin 70/30 (70/30 Units/Ml) 10 Ml) 5 units SC HS [facility] Last Admin: 03/24/17 21:23 Dose: 5 units Magnesium Oxide (Mag-Ox) 800 mg PO BID [facility] Last Admin: 03/25/17 10:44 Dose: 800 mg Morphine Sulfate (Morphine) 1 mg IVP Q4H [facility] PRN Reason: Pain, moderate (4-7) Last Admin: 03/25/17 13:16 Dose: 1 mg Pantoprazole Sodium (Protonix Ec Tab) 40 mg PO DAILY [facility] Last Admin: 03/25/17 10:45 Dose: 40 mg Potassium Phos/Sodium Phos (Neutra-Phos) 1 pkt PO TID [facility] Last Admin: 03/25/17 13:23 Dose: 1 pkt Sodium Bicarbonate (Sodium Bicarbonate Tab) 650 mg PO BID [facility] Last Admin: 03/25/17 10:45 Dose: 650 mg Spironolactone (Aldactone) 50 mg PO DAILY [facility] Last Admin: 03/25/17 10:44 Dose: 50 mg Thiamine HCl (Vitamin B1 Tab) 100 mg PO DAILY [facility] Last Admin: 03/25/17 10:44 Dose: 100 mg Zolpidem Tartrate (Ambien) 5 mg PO HS PRN PRN Reason: Insomnia Last Admin: 03/24/17 21:23 Dose: 5 mg - Labs Labs: 03/25/17 07:45 03/25/17 07:45 PT 16.3 SECONDS (9.7-12.2) H 03/18/17 11:28 INR 1.4 03/18/17 11:28 APTT 39 SECONDS (21-34) H 03/18/17 11:28 - Constitutional Appears: Non-toxic, Cachectic, Chronically Ill - Head Exam Head Exam: NORMOCEPHALIC - Eye Exam Eye Exam: PERRL. absent: Scleral icterus - ENT Exam ENT Exam: Mucous Membranes Dry - Neck Exam Neck Exam: absent: Lymphadenopathy - Respiratory Exam Respiratory Exam: Decreased Breath Sounds - Cardiovascular Exam Cardiovascular Exam: REGULAR RHYTHM - GI/Abdominal Exam GI & Abdominal Exam: Distended, Soft Assessment and Plan (1) Difficulty urinating Status: Acute (2) Difficulty walking Status: Acute (3) UTI (urinary tract infection) Status: Acute - Assessment and Plan (Free Text) Plan: consider d/c antibiotics
[2017-03-25] MEDS ORDERED: MethylPREDNISolone 40 mg Vial IV ONE (20:21)
[2017-03-25] MEDS: Albuterol-Ipratrop 3 mg / 0.5 (3 ml) UD INH SCH (20:34)
[2017-03-26] MEDS: Albuterol-Ipratrop 3 mg / 0.5 (3 ml) UD INH SCH ×7 (00:08→23:58)
[2017-03-26 07:44] LABS: BASO # 0.1 K/uL (0.0-0.2); BASO % 0.9 % (0.0-2.0); HEMATOCRIT 30.1 % (34.0-47.0); LYMPH # 1.2 K/uL (1.0-4.3); LYMPH % 10.4 % (20.0-40.0); MEAN CELL VOLUME 112.6 fL (81.0-99.0); MEAN CORPUSCULAR HEMOGLOBIN 37.9 pg (27.0-31.0); MEAN CORPUSCULAR HGB CONC 33.7 g/dL (33.0-37.0); MEAN PLATELET VOLUME 11.4 fL (7.2-11.7); MONO # 0.5 K/uL (0.0-0.8); MONO % 4.6 % (0.0-10.0); NRBC % 0.1 % (0.0-2.0); RED CELL DISTRIBUTION WIDTH 13.7 % (11.5-14.5); WHITE BLOOD COUNT 11.7 K/uL (4.8-10.8)
[2017-03-26] MEDS: (Novolog) Insulin Aspart, Recombinant 100 u/ml 10 ml vial SC SCH ×4 (08:00→22:13)
[2017-03-26 08:42] LABS: ALB/GLOB RATIO 0.5 (1.0-2.1); ALKALINE PHOSPHATASE 72 U/L (38-126); ALT/SGPT 40 U/L (9-52); AST/SGOT 51 U/L (14-36); BILIRUBIN,TOTAL 1.6 mg/dL (0.2-1.3); BLOOD UREA NITROGEN 13 mg/dL (7-17); CALCIUM 7.7 mg/dl (8.6-10.4); CARBON DIOXIDE 18 mmol/L (22-30); CHLORIDE 99 mmol/L (98-107); GFR AFRICAN-AMERICAN > 60; GLUCOSE,RANDOM 156 mg/dL (65-105); POTASSIUM 4.2 mmol/L (3.6-5.2); SODIUM 130 mmol/L (132-148); TOTAL PROTEIN 6.1 g/dL (6.3-8.3)
[2017-03-26] MEDS: Potassium & Sodium Phosphate PO SCH ×3 (09:16→17:50)
[2017-03-26] MEDS: Pantoprazole 40 mg EC Tab PO SCH (09:16)
[2017-03-26] MEDS: (Novolin 70/30) NPH/Regular 70/30 Units/ml 10 ml vial SC SCH ×2 (09:16→22:12)
[2017-03-26] MEDS: Magnesium Oxide 400 mg Tab UD PO SCH ×2 (09:16→17:50)
--- NOTE | 2017-03-26 11:24 | CP.PCM.PN ---
Subjective - Date & Time of Evaluation Date of Evaluation: 03/26/17 Time of Evaluation: 08:00 - Subjective Subjective: afeb ok to switch to PO antibiotics Objective - Vital Signs/Intake and Output Vital Signs (last 24 hours): Temp Pulse Resp BP Pulse Ox 97.5 F L 101 H 20 123/85 94 L 03/26/17 00:00 03/26/17 11:06 03/26/17 05:00 03/26/17 05:00 03/26/17 11:06 Intake and Output: 03/26/17 03/26/17 06:59 18:59 Intake Total 1040 Output Total 200 Balance 840 - Medications Medications: Current Medications Albuterol/Ipratropium (Duoneb 3 Mg/0.5 Mg (3 Ml) Ud) 3 ml INH RQ4 [facility] Last Admin: 03/26/17 07:36 Dose: 3 ml Tigecycline 50 mg/ Sodium (Chloride) 100 mls @ 100 mls/hr IVPB Q12H [facility] Last Admin: 03/26/17 05:30 Dose: 100 mls/hr Insulin Aspart (Novolog) 0 unit SC ACHS [facility] PRN Reason: Protocol Last Admin: 03/26/17 08:00 Dose: Not Given Insulin Human Isoph/Insulin Regular (Novolin 70/30 (70/30 Units/Ml) 10 Ml) 10 units SC QAM [facility] Last Admin: 03/26/17 09:16 Dose: Not Given Insulin Human Isoph/Insulin Regular (Novolin 70/30 (70/30 Units/Ml) 10 Ml) 5 units SC HS [facility] Last Admin: 03/25/17 21:36 Dose: Not Given Ketorolac Tromethamine (Toradol) 30 mg IVP Q6 PRN PRN Reason: light pain Last Admin: 03/26/17 09:27 Dose: 30 mg Magnesium Oxide (Mag-Ox) 800 mg PO BID [facility] Last Admin: 03/26/17 09:16 Dose: Not Given Morphine Sulfate (Morphine) 1 mg IVP Q4H PRN PRN Reason: Pain, moderate (4-7) Last Admin: 03/26/17 06:20 Dose: 1 mg Ondansetron HCl (Zofran Inj) 4 mg IVP Q6H PRN PRN Reason: nausea Last Admin: 03/26/17 09:26 Dose: 4 mg Pantoprazole Sodium (Protonix Ec Tab) 40 mg PO DAILY [facility] Last Admin: 03/26/17 09:16 Dose: Not Given Potassium Phos/Sodium Phos (Neutra-Phos) 1 pkt PO TID [facility] Last Admin: 03/26/17 09:16 Dose: Not Given Sodium Bicarbonate (Sodium Bicarbonate Tab) 650 mg PO BID [facility] Last Admin: 03/26/17 09:17 Dose: Not Given Spironolactone (Aldactone) 50 mg PO DAILY [facility] Last Admin: 03/26/17 09:16 Dose: Not Given Thiamine HCl (Vitamin B1 Tab) 100 mg PO DAILY [facility] Last Admin: 03/26/17 09:17 Dose: Not Given Zolpidem Tartrate (Ambien) 5 mg PO HS PRN PRN Reason: Insomnia Last Admin: 03/25/17 21:33 Dose: 5 mg - Labs Labs: 03/26/17 07:08 03/26/17 07:08 PT 16.3 SECONDS (9.7-12.2) H 03/18/17 11:28 INR 1.4 03/18/17 11:28 APTT 39 SECONDS (21-34) H 03/18/17 11:28 - Constitutional Appears: Non-toxic, Cachectic, Chronically Ill - Head Exam Head Exam: NORMOCEPHALIC - Eye Exam Eye Exam: PERRL - ENT Exam ENT Exam: Mucous Membranes Dry - Neck Exam Neck Exam: absent: Lymphadenopathy - Respiratory Exam Respiratory Exam: Decreased Breath Sounds - Cardiovascular Exam Cardiovascular Exam: REGULAR RHYTHM - GI/Abdominal Exam GI & Abdominal Exam: Distended - Rectal Exam Rectal Exam: Deferred Assessment and Plan (1) Difficulty urinating Status: Acute (2) Difficulty walking Status: Acute (3) UTI (urinary tract infection) Status: Acute
--- NOTE | 2017-03-26 13:07 | PN ---
DATE: LOCATION: [facility], bed A. SUBJECTIVE: This is a 61 years old female seen and examined in rounds with no significant clinical changes, but complains of generalized muscle pain. The entire chart is reviewed including, but not limited to the most recent lab and radiology study results, current and the previous medication list, current and the previous medical events. Case discussed at length with the staff in the floor. LABORATORY DATA: Patient still has leukocytosis with low hemoglobin of 10.1, hematocrit 31.1 with thrombocytopenia of 54, but no evidence of active bleeding with low sodium 130, low CO2 content of 18 indicative of metabolic acidosis, blood glucose level 192, low calcium 7.1 and slightly elevated total bilirubin to 1.6 with increased AST to 51, normal ALT, low albumin 2.1. Patient is status post ultrasound-guided abdominal paracentesis. PHYSICAL EXAMINATION: GENERAL: A 61 years old female. VITAL SIGNS: Afebrile with pulse of 98, respiratory rate 20 to 22, blood pressure of 118/82. HEENT: Showed pale, dry oral mucous membrane. Nonicteric sclerae. LUNGS: Few scattered crepitation with mild decrease of air entry at bases. HEART: Positive S1 and S2 with increased rate. ABDOMEN: Soft, bowel sounds are present with slight distention and mild ascites. No mass or organomegaly. No rebound tenderness or guarding. EXTREMITIES: Without significant clubbing, cyanosis, or edema. NEUROLOGIC: No reported new neurological deficits, sensory or motor. Patient is still complaining of difficulty of urination and difficulty of walking due to generalized muscle weakness and pain. IMPRESSION: 1. Electrolyte imbalance. 2. Abnormal liver function test secondary to alcoholism with alcoholic liver disease with evidence of portal hypertension and ascites. 3. Difficulty of urination by recent history. 4. Thrombocytopenia secondary to her liver dysfunction. 5. Anemia secondary to above. 6. Malnutrition with hypoproteinemia, hypoalbuminemia. SUGGESTIONS: 1. Agree with your plan. 2. Patient may need MRCP. 3. Further recommendation to follow. Wicho Potter MD
--- NOTE | 2017-03-26 13:31 | CP.PCM.PN ---
Subjective - Date & Time of Evaluation Date of Evaluation: 03/26/17 Time of Evaluation: 10:00 - Subjective Subjective: PGY3 on medicine Dr. Michle service: Pt seen and examined at bedside this morning. Pt reports abdominal pain and wants pain medication. Per RN pt was agitated overnight and wanted to leave her bed. Pt otherwise has no other acute complaints. Objective - Vital Signs/Intake and Output Vital Signs (last 24 hours): Temp Pulse Resp BP Pulse Ox 97.5 F L 101 H 20 123/85 94 L 03/26/17 00:00 03/26/17 11:06 03/26/17 05:00 03/26/17 05:00 03/26/17 11:06 Intake and Output: 03/26/17 03/26/17 06:59 18:59 Intake Total 1040 Output Total 200 Balance 840 - Medications Medications: Current Medications Albuterol/Ipratropium (Duoneb 3 Mg/0.5 Mg (3 Ml) Ud) 3 ml INH RQ4 [facility] Last Admin: 03/26/17 07:36 Dose: 3 ml Insulin Aspart (Novolog) 0 unit SC ACHS [facility] PRN Reason: Protocol Last Admin: 03/26/17 12:29 Dose: Not Given Insulin Human Isoph/Insulin Regular (Novolin 70/30 (70/30 Units/Ml) 10 Ml) 10 units SC QAM [facility] Last Admin: 03/26/17 09:16 Dose: Not Given Insulin Human Isoph/Insulin Regular (Novolin 70/30 (70/30 Units/Ml) 10 Ml) 5 units SC HS [facility] Last Admin: 03/25/17 21:36 Dose: Not Given Ketorolac Tromethamine (Toradol) 30 mg IVP Q6 PRN PRN Reason: light pain Last Admin: 03/26/17 09:27 Dose: 30 mg Magnesium Oxide (Mag-Ox) 800 mg PO BID [facility] Last Admin: 03/26/17 09:16 Dose: Not Given Morphine Sulfate (Morphine) 1 mg IVP Q4H PRN PRN Reason: Pain, moderate (4-7) Last Admin: 03/26/17 06:20 Dose: 1 mg Nitrofurantoin Macrocrystals (Macrobid) 100 mg PO Q12H [facility] Ondansetron HCl (Zofran Inj) 4 mg IVP Q6H PRN PRN Reason: nausea Last Admin: 03/26/17 09:26 Dose: 4 mg Pantoprazole Sodium (Protonix Ec Tab) 40 mg PO DAILY [facility] Last Admin: 03/26/17 09:16 Dose: Not Given Potassium Phos/Sodium Phos (Neutra-Phos) 1 pkt PO TID [facility] Last Admin: 03/26/17 09:16 Dose: Not Given Sodium Bicarbonate (Sodium Bicarbonate Tab) 650 mg PO BID [facility] Last Admin: 03/26/17 09:17 Dose: Not Given Spironolactone (Aldactone) 50 mg PO DAILY [facility] Last Admin: 03/26/17 09:16 Dose: Not Given Thiamine HCl (Vitamin B1 Tab) 100 mg PO DAILY [facility] Last Admin: 03/26/17 09:17 Dose: Not Given Zolpidem Tartrate (Ambien) 5 mg PO HS PRN PRN Reason: Insomnia Last Admin: 03/25/17 21:33 Dose: 5 mg - Labs Labs: 03/26/17 07:08 03/26/17 07:08 PT 16.3 SECONDS (9.7-12.2) H 03/18/17 11:28 INR 1.4 03/18/17 11:28 APTT 39 SECONDS (21-34) H 03/18/17 11:28 - Constitutional Appears: Non-toxic, No Acute Distress, Chronically Ill - Head Exam Head Exam: NORMOCEPHALIC - Eye Exam Eye Exam: Normal appearance Pupil Exam: NORMAL ACCOMODATION - ENT Exam ENT Exam: Mucous Membranes Moist - Respiratory Exam Respiratory Exam: Clear to Ausculation Bilateral, NORMAL BREATHING PATTERN. absent: Wheezes - Cardiovascular Exam Cardiovascular Exam: REGULAR RHYTHM, +S1, +S2 - GI/Abdominal Exam GI & Abdominal Exam: Soft, Normal Bowel Sounds - Exam Additional comments: Duong catheter - Neurological Exam Neurological Exam: Alert, Awake, Oriented x3 - Psychiatric Exam Psychiatric exam: Agitated - Skin Skin Exam: Intact Assessment and Plan - Assessment and Plan (Free Text) Assessment: Difficulty urinating Post void bladder scan shows about [address] Ingrid Hwang consulted. Tamsulosin Can remove duong and observe for urination per Dr. Mejia Hyponatremia; patient is 3rd spacing Fluid restricted diet, Nephrology consult urine lytes patient s/p paracentesis with 1.1L fluid removed. Ascites 2/2 to Liver Failure 2/2 to Chronic EtOH abuse MELD Score 17 on admission Downtrending, continue to monitor GI Dr. Zendejas consulted, help appreciated. Abdominal ultrasound showed upper abdominal ascites and thickened gallbladder wall. patient is becoming more hyponatremic and ascites is worsening fluid analysis ordered pain control Hep Panel negative most likely 2/2 to chronic EtOH abuse Anemia; chronic and most likely 2/2 to chronic etoh abuse 03/21: IV Ferrict. UTI (urinary tract infection); improving Will switch to Nitrofuratoin per Dr. Dos Santos. Completed 7 days of Tigecycline. ESBL E. Coli in urine culture. Dr. Dos Santos consulted F/U repeat urine culture Alcohol abuse; chronic replaced Mag today, continue thiamine and folic acid thiamine and folic acid, replace her potassium and mag today Thrombocytopenia; chronic most likely secondary to etoh abuse Diabetes; chronic sliding scale and her Novolin 70/30 5 units HS and 10 units AM Prophylactic measure hold VTE due to low plt count protonix and SCDs for now PT/OT evaluation for placement All management as per Dr. Michel
[2017-03-26] MEDS ORDERED: Albuterol-Ipratrop 3 mg / 0.5 (3 ml) UD INH ONE (15:25)
--- NOTE | 2017-03-26 16:05 | CP.PCM.PN ---
Subjective - Date & Time of Evaluation Date of Evaluation: 03/26/17 Time of Evaluation: 16:03 - Subjective Subjective: Follow up Nephrology Consultation: Assessment: critical Acute pulmonary edema Hypovolemic hyponatremia (urine Na <5) and contributed by infusion of hypotonic fluids, cirrhosis Hypomagnesemia, Anemia diabetes Mellitus hypertension, ex smoker, chronic etoh abuse and chronic pancreatitis UTI, back pain Plan d/c IVF. diruese with IV lasix avoid correction in serum Na >6-8 meq/24 hr. no need for hypertonic saline at this time supplemented magnesium Monitor Input/Output, daily weights and renal function with basic metabolic panel Glycemic control Further work up/management as per primary team deferred aldactone for her portal HTN until she is more stable Thanks for allowing me to participate in care of your patient. Will follow patient with you. Please call if any Qs. d/w team Dr Jaya Flynn Office: [phone] Chief Complaint; SOB Reason for consult: hyponatremia HPI: Pt is a 61 y/o F with hx of diabetes Mellitus hypertension, ex smoker, chronic etoh abuse and chronic pancreatitis initially presented with complaints of dysuria and being treated with antibiotics for UTI. she was getting D5/0.45% saline and noted to have decreased serum Na to 124 hence renal consult requested pt c/o low back pain. feels SOB today Denies chest pain, palpitation, leg swelling Denies blood or bubbles in urine. has duong Physical Examination: General Appearance: tachypenic co-operative . cachexic. on O2 via facemask Vitals reviewed and noted as below Head; Atraumatic, normocephalic ENT: no ulcers no thrush. Tongue is midline/dry. Oropharynx: no rash or ulcers. EYES: Pupils are equal, round and reactive to light accommodation. Eye muscles and extraocular movement intact. Sclera is anicteric. Neck; supple no lymphadenopathy, no thyromegaly or bruit Lungs: Increased respiratory rate/effort. Breath sounds bilateral with crackles and few wheeze Heart: Normal rate. s1s2 normal. No rub or gallop. Extremities: no edema. No varicose veins Neurological: Patient is alert, awake and oriented to person, place and time. No focal deficit. Strength bilateral appropriate and equal Skin: Warm and dry. Normal turgor. No rash. Palpitation: Normal elasticity for age Abdomen: Abdomen is soft. Bowel sounds +. There is no abdominal tenderness, no guarding/rigidity no organomegaly has ascites Psych: normal insight and normal affect/mood MSK: no joint tenderness or swelling. Digits and nails normal, no deformity : kidney or bladder not palpable Labs/imaging/EKG reviewed. Past medical history, past surgical history, family history, social history, allergy reviewed and noted as below Family hx: no hx of CKD. Rest non-contributory recent echo: normal LVEF CT abdomen: chronic pancreatitis, liver disease, increased echogenic kidneys. has compression fractures in vertebra Objective - Vital Signs/Intake and Output Vital Signs (last 24 hours): Temp Pulse Resp BP Pulse Ox 97.5 F L 101 H 20 137/90 94 L 03/26/17 00:00 03/26/17 11:06 03/26/17 05:00 03/26/17 15:47 03/26/17 11:06 Intake and Output: 03/26/17 03/26/17 06:59 18:59 Intake Total 1040 Output Total 200 Balance 840 - Medications Medications: Current Medications Albuterol/Ipratropium (Duoneb 3 Mg/0.5 Mg (3 Ml) Ud) 3 ml INH RQ4 [facility] Last Admin: 03/26/17 15:42 Dose: 3 ml Insulin Aspart (Novolog) 0 unit SC ACHS [facility] PRN Reason: Protocol Last Admin: 03/26/17 12:29 Dose: Not Given Insulin Human Isoph/Insulin Regular (Novolin 70/30 (70/30 Units/Ml) 10 Ml) 10 units SC QAM [facility] Last Admin: 03/26/17 09:16 Dose: Not Given Insulin Human Isoph/Insulin Regular (Novolin 70/30 (70/30 Units/Ml) 10 Ml) 5 units SC HS [facility] Last Admin: 03/25/17 21:36 Dose: Not Given Ketorolac Tromethamine (Toradol) 30 mg IVP Q6 PRN PRN Reason: light pain Last Admin: 03/26/17 09:27 Dose: 30 mg Magnesium Oxide (Mag-Ox) 800 mg PO BID [facility] Last Admin: 03/26/17 09:16 Dose: Not Given Morphine Sulfate (Morphine) 1 mg IVP Q4H PRN PRN Reason: Pain, moderate (4-7) Last Admin: 03/26/17 13:54 Dose: 1 mg Nitrofurantoin Macrocrystals (Macrobid) 100 mg PO Q12H [facility] Last Admin: 03/26/17 13:56 Dose: 100 mg Ondansetron HCl (Zofran Inj) 4 mg IVP Q6H PRN PRN Reason: nausea Last Admin: 03/26/17 09:26 Dose: 4 mg Pantoprazole Sodium (Protonix Ec Tab) 40 mg PO DAILY [facility] Last Admin: 03/26/17 09:16 Dose: Not Given Potassium Phos/Sodium Phos (Neutra-Phos) 1 pkt PO TID [facility] Last Admin: 03/26/17 13:57 Dose: Not Given Sodium Bicarbonate (Sodium Bicarbonate Tab) 650 mg PO BID [facility] Last Admin: 03/26/17 09:17 Dose: Not Given Thiamine HCl (Vitamin B1 Tab) 100 mg PO DAILY [facility] Last Admin: 03/26/17 09:17 Dose: Not Given Zolpidem Tartrate (Ambien) 5 mg PO HS PRN PRN Reason: Insomnia Last Admin: 03/25/17 21:33 Dose: 5 mg - Labs Labs: 03/26/17 07:08 03/26/17 07:08 PT 16.3 SECONDS (9.7-12.2) H 03/18/17 11:28 INR 1.4 03/18/17 11:28 APTT 39 SECONDS (21-34) H 03/18/17 11:28
--- NOTE | 2017-03-26 16:54 | RAD ---
HISTORY: SOB COMPARISON: No prior. FINDINGS: LUNGS: Patchy bilateral infiltrates with bilateral effusions, right larger than left. . Findings could represent pulmonary edema or pneumonia. There may also be some more moderate amount of more discrete atelectasis in the right lung base as well. PLEURA: No significant pleural effusion identified, no pneumothorax apparent. CARDIOVASCULAR: Normal. OSSEOUS STRUCTURES: No significant abnormalities. VISUALIZED UPPER ABDOMEN: Multiple of distended loops of bowel which could be secondary to an ileus. OTHER FINDINGS: None. IMPRESSION: Patchy bilateral infiltrates with bilateral effusions, right larger than left. . Findings could represent pulmonary edema or pneumonia. There may also be some more moderate amount of more discrete atelectasis in the right lung base as well.
--- NOTE | 2017-03-27 01:30 | PCM.URO ---
Urology Progress Note - Subjective Abdominal Pain: Yes Flank Pain: No Nausea: No Vomiting: No Voiding Well: No Hematuria: No Chest Pain: No Fever & Chills: No - Objective Lab Studies: Reviewed Lab Results Last 24 Hours: Laboratory Results - last 24 hr 03/23/17 03/23/17 03/25/17 17:19 17:19 15:17 WBC RBC Hgb Hct MCV MCH MCHC RDW Plt Count MPV Neut % (Auto) Lymph % (Auto) Murray % (Auto) Eos % (Auto) Baso % (Auto) Neut # Lymph # Murray # Eos # Baso # Differential Comment Sodium Potassium Chloride Carbon Dioxide Anion Gap BUN Creatinine Est GFR ( Amer) Est GFR (Non-Af Amer) POC Glucose (mg/dL) Random Glucose Calcium Total Bilirubin AST ALT Alkaline Phosphatase Total Protein Albumin Globulin Albumin/Globulin Ratio Peritoneal LDH 19 Peritoneal Glucose 117 C. difficile Ag & Toxin Negative 03/26/17 03/26/17 03/26/17 02:19 07:08 07:08 WBC 11.7 H RBC 2.67 L Hgb 10.1 L Hct 30.1 L MCV 112.6 H MCH 37.9 H MCHC 33.7 RDW 13.7 Plt Count 45 L MPV 11.4 Neut % (Auto) 84.1 H Lymph % (Auto) 10.4 L Murray % (Auto) 4.6 Eos % (Auto) 0.0 Baso % (Auto) 0.9 Neut # 9.9 H Lymph # 1.2 Murray # 0.5 Eos # 0.0 Baso # 0.1 Differential Comment Sodium 130 L Potassium 4.2 Chloride 99 Carbon Dioxide 18 L Anion Gap 17 BUN 13 Creatinine 0.6 L Est GFR ( Amer) > 60 Est GFR (Non-Af Amer) > 60 POC Glucose (mg/dL) 191 H Random Glucose 156 H Calcium 7.7 L Total Bilirubin 1.6 H AST 51 H ALT 40 Alkaline Phosphatase 72 Total Protein 6.1 L Albumin 2.1 L Globulin 4.0 H Albumin/Globulin Ratio 0.5 L Peritoneal LDH Peritoneal Glucose C. difficile Ag & Toxin 03/26/17 03/26/17 03/26/17 07:35 11:42 16:51 WBC RBC Hgb Hct MCV MCH MCHC RDW Plt Count MPV Neut % (Auto) Lymph % (Auto) Murray % (Auto) Eos % (Auto) Baso % (Auto) Neut # Lymph # Murray # Eos # Baso # Differential Comment Sodium Potassium Chloride Carbon Dioxide Anion Gap BUN Creatinine Est GFR ( Amer) Est GFR (Non-Af Amer) POC Glucose (mg/dL) 192 H 151 H 139 H Random Glucose Calcium Total Bilirubin AST ALT Alkaline Phosphatase Total Protein Albumin Globulin Albumin/Globulin Ratio Peritoneal LDH Peritoneal Glucose C. difficile Ag & Toxin 03/26/17 21:07 WBC RBC Hgb Hct MCV MCH MCHC RDW Plt Count MPV Neut % (Auto) Lymph % (Auto) Murray % (Auto) Eos % (Auto) Baso % (Auto) Neut # Lymph # Murray # Eos # Baso # Differential Comment Sodium Potassium Chloride Carbon Dioxide Anion Gap BUN Creatinine Est GFR ( Amer) Est GFR (Non-Af Amer) POC Glucose (mg/dL) 126 H Random Glucose Calcium Total Bilirubin AST ALT Alkaline Phosphatase Total Protein Albumin Globulin Albumin/Globulin Ratio Peritoneal LDH Peritoneal Glucose C. difficile Ag & Toxin Intake & Output: Intake & Output 03/26/17 03/26/17 03/27/17 06:59 18:59 06:59 Intake Total 1040 240 100 Output Total 200 1 Balance 840 239 100 Intake: Intake, IV Amount 490 Right Forearm 490 Oral 550 240 100 Output: Urine 200 Urethral (Gusman) 200 Emesis 1 Other: # Voids Urethral (G[place]man) 5 # Bowel Movements 1 0 Vital Signs: Vital Signs - 24 hr 03/26/17 03/26/17 03/26/17 02:00 05:00 11:06 Temperature Pulse Rate 95 H 105 H 101 H Respiratory 22 20 Rate Blood Pressure 124/84 123/85 O2 Sat by Pulse 94 L 94 L 94 L Oximetry 03/26/17 03/26/17 03/26/17 15:15 15:47 16:51 Temperature 97.3 F L Pulse Rate 96 H 100 H Respiratory 22 Rate Blood Pressure 124/77 137/90 O2 Sat by Pulse 95 Oximetry 03/26/17 03/26/17 19:14 23:58 Temperature Pulse Rate 95 H 98 H Respiratory Rate Blood Pressure O2 Sat by Pulse Oximetry Imaging Studies: Reviewed - Physical Exam Abdominal Exam: Soft. absent: Non-Tender, Non-Distended Urinary Catheter Draining Well: Yes Urine Color: Clear, Yellow - Plan Discontinue Urinary Catheter: Yes Additional Information: Imp: Abd pain and distention. UTI. Rec/p: Antibiotic rx. Trial of voiding. Discussed w pt and resident staff. - Date & Time of Note Date: 03/26/17 Time: 11:30
[2017-03-27] MEDS: Albuterol-Ipratrop 3 mg / 0.5 (3 ml) UD INH SCH ×6 (03:07→23:25)
[2017-03-27 07:07] LABS: BASO # 0.1 K/uL (0.0-0.2); BASO % 0.9 % (0.0-2.0); EOS % 0.2 % (0.0-4.0); HEMATOCRIT 35.1 % (34.0-47.0); LYMPH # 1.4 K/uL (1.0-4.3); LYMPH % 13.2 % (20.0-40.0); MEAN CELL VOLUME 111.5 fL (81.0-99.0); MEAN CORPUSCULAR HEMOGLOBIN 37.9 pg (27.0-31.0); MEAN PLATELET VOLUME 12.7 fL (7.2-11.7); MONO # 0.6 K/uL (0.0-0.8); MONO % 6.2 % (0.0-10.0); NRBC % 0.1 % (0.0-2.0); RED CELL DISTRIBUTION WIDTH 13.5 % (11.5-14.5); WHITE BLOOD COUNT 10.3 K/uL (4.8-10.8)
--- NOTE | 2017-03-27 07:20 | CP.PCM.PN ---
Subjective - Date & Time of Evaluation Date of Evaluation: 03/27/17 Time of Evaluation: 10:00 - Subjective Subjective: PGY3 on medicine Dr. Michel service: Pt seen and examined at bedside this morning. Pt was on BIPAP overnight and saturating well per RN. Pt however still feels abdominal pain and feels weak. Pt has no other acute complaints at this point. Objective - Vital Signs/Intake and Output Vital Signs (last 24 hours): Temp Pulse Resp BP Pulse Ox 97.2 F L 88 20 111/77 96 03/27/17 00:00 03/27/17 05:24 03/27/17 00:00 03/27/17 00:00 03/27/17 00:00 Intake and Output: 03/27/17 03/27/17 06:59 18:59 Intake Total 100 Balance 100 - Medications Medications: Current Medications Albuterol/Ipratropium (Duoneb 3 Mg/0.5 Mg (3 Ml) Ud) 3 ml INH RQ4 [facility] Last Admin: 03/27/17 03:07 Dose: 3 ml Insulin Aspart (Novolog) 0 unit SC ACHS [facility] PRN Reason: Protocol Last Admin: 03/26/17 22:13 Dose: Not Given Insulin Human Isoph/Insulin Regular (Novolin 70/30 (70/30 Units/Ml) 10 Ml) 10 units SC QAM [facility] Last Admin: 03/26/17 09:16 Dose: Not Given Insulin Human Isoph/Insulin Regular (Novolin 70/30 (70/30 Units/Ml) 10 Ml) 5 units SC HS [facility] Last Admin: 03/26/17 22:12 Dose: Not Given Magnesium Oxide (Mag-Ox) 800 mg PO BID [facility] Last Admin: 03/26/17 17:50 Dose: Not Given Morphine Sulfate (Morphine) 1 mg IVP Q4H PRN PRN Reason: Pain, moderate (4-7) Last Admin: 03/26/17 13:54 Dose: 1 mg Nitrofurantoin Macrocrystals (Macrobid) 100 mg PO Q12H [facility] Last Admin: 03/27/17 01:19 Dose: 100 mg Ondansetron HCl (Zofran Inj) 4 mg IVP Q6H PRN PRN Reason: nausea Last Admin: 03/26/17 09:26 Dose: 4 mg Pantoprazole Sodium (Protonix Ec Tab) 40 mg PO DAILY [facility] Last Admin: 03/26/17 09:16 Dose: Not Given Potassium Phos/Sodium Phos (Neutra-Phos) 1 pkt PO TID [facility] Last Admin: 03/26/17 17:50 Dose: Not Given Sodium Bicarbonate (Sodium Bicarbonate Tab) 650 mg PO BID [facility] Last Admin: 03/26/17 17:50 Dose: Not Given Thiamine HCl (Vitamin B1 Tab) 100 mg PO DAILY [facility] Last Admin: 03/26/17 09:17 Dose: Not Given Zolpidem Tartrate (Ambien) 5 mg PO HS PRN PRN Reason: Insomnia Last Admin: 03/26/17 22:19 Dose: 5 mg - Labs Labs: 03/27/17 06:50 03/26/17 07:08 PT 16.3 SECONDS (9.7-12.2) H 03/18/17 11:28 INR 1.4 03/18/17 11:28 APTT 39 SECONDS (21-34) H 03/18/17 11:28 - Constitutional Appears: Non-toxic, No Acute Distress, Cachectic, Chronically Ill - Head Exam Head Exam: NORMOCEPHALIC - Eye Exam Eye Exam: Normal appearance Pupil Exam: NORMAL ACCOMODATION - ENT Exam ENT Exam: Mucous Membranes Moist - Respiratory Exam Respiratory Exam: Rales, Rhonchi, Wheezes, NORMAL BREATHING PATTERN Additional comments: On BIPAP - Cardiovascular Exam Cardiovascular Exam: REGULAR RHYTHM, +S1, +S2. absent: Gallop - GI/Abdominal Exam GI & Abdominal Exam: Distended, Soft, Normal Bowel Sounds - Neurological Exam Neurological Exam: Alert, Awake, Oriented x3 - Psychiatric Exam Psychiatric exam: Normal Mood Assessment and Plan - Assessment and Plan (Free Text) Assessment: SOB Repeat CXR showed pulmonary edema/pneumonia L>R BIPAP PRN Pt was diuresed yesterday with Lasix and Aldactone Pt had unremarkable ECHO in 11/2016 Will start Vanco and Azactam today 03/27 PICC insertion requested due to poor venous access F/U blood culture prior to abx administration Difficulty urinating Post void bladder scan shows about [address] Ingrid Hwang consulted. Tamsulosin Can remove duong and observe for urination per Dr. Mejia Hyponatremia; patient is 3rd spacing Fluid restricted diet, Nephrology consult urine lytes patient s/p paracentesis with 1.1L fluid removed. Ascites 2/2 to Liver Failure 2/2 to Chronic EtOH abuse MELD Score 17 on admission Downtrending, continue to monitor GI Dr. Zendejas consulted, help appreciated. Abdominal ultrasound showed upper abdominal ascites and thickened gallbladder wall. patient is becoming more hyponatremic and ascites is worsening fluid analysis ordered pain control Hep Panel negative most likely 2/2 to chronic EtOH abuse Palliative consult for goal of care Anemia; chronic and most likely 2/2 to chronic etoh abuse 03/21: IV Ferrict. UTI (urinary tract infection); improving Will switch to Nitrofuratoin per Dr. Dos Santos. Completed 7 days of Tigecycline. ESBL E. Coli in urine culture. Dr. Dos Santos consulted F/U repeat urine culture Alcohol abuse; chronic replaced Mag today, continue thiamine and folic acid thiamine and folic acid, replace her potassium and mag today Thrombocytopenia; chronic most likely secondary to etoh abuse Diabetes; chronic sliding scale and her Novolin 70/30 5 units HS and 10 units AM Prophylactic measure hold VTE due to low plt count protonix and SCDs for now PT/OT evaluation for placement All management as per Dr. Michel
[2017-03-27] MEDS: (Novolog) Insulin Aspart, Recombinant 100 u/ml 10 ml vial SC SCH ×4 (07:51→22:10)
[2017-03-27] MEDS: Pantoprazole 40 mg EC Tab PO SCH (09:52)
[2017-03-27] MEDS: Potassium & Sodium Phosphate PO SCH ×3 (09:52→17:20)
[2017-03-27] MEDS: (Novolin 70/30) NPH/Regular 70/30 Units/ml 10 ml vial SC SCH ×2 (09:53→22:11)
[2017-03-27] MEDS: Magnesium Oxide 400 mg Tab UD PO SCH ×2 (09:53→17:20)
--- NOTE | 2017-03-27 11:58 | CP.PCM.PN ---
Subjective - Date & Time of Evaluation Date of Evaluation: 03/27/17 Time of Evaluation: 06:00 - Subjective Subjective: events noted back on IV antibiotics recultured Objective - Vital Signs/Intake and Output Vital Signs (last 24 hours): Temp Pulse Resp BP Pulse Ox 97.8 F 90 20 105/71 95 03/27/17 08:14 03/27/17 08:18 03/27/17 08:14 03/27/17 08:14 03/27/17 08:14 Intake and Output: 03/27/17 03/27/17 06:59 18:59 Intake Total 100 240 Balance 100 240 - Medications Medications: Current Medications Albuterol/Ipratropium (Duoneb 3 Mg/0.5 Mg (3 Ml) Ud) 3 ml INH RQ4 [facility] Last Admin: 03/27/17 08:17 Dose: 3 ml Aztreonam 2 gm/ Sodium (Chloride) 100 mls @ 200 mls/hr IVPB Q8H [facility] Vancomycin HCl 1 gm/ Sodium (Chloride) 250 mls @ 166.667 mls/hr IVPB Q12H [facility] Stop: 04/01/17 12:31 Insulin Aspart (Novolog) 0 unit SC ACHS [facility] PRN Reason: Protocol Last Admin: 03/27/17 11:37 Dose: Not Given Insulin Human Isoph/Insulin Regular (Novolin 70/30 (70/30 Units/Ml) 10 Ml) 10 units SC QAM [facility] Last Admin: 03/27/17 09:53 Dose: Not Given Insulin Human Isoph/Insulin Regular (Novolin 70/30 (70/30 Units/Ml) 10 Ml) 5 units SC HS [facility] Last Admin: 03/26/17 22:12 Dose: Not Given Magnesium Oxide (Mag-Ox) 800 mg PO BID [facility] Last Admin: 03/27/17 09:53 Dose: 800 mg Morphine Sulfate (Morphine) 1 mg IVP Q4H PRN PRN Reason: Pain, moderate (4-7) Last Admin: 03/26/17 13:54 Dose: 1 mg Nitrofurantoin Macrocrystals (Macrobid) 100 mg PO Q12H [facility] Last Admin: 03/27/17 01:19 Dose: 100 mg Ondansetron HCl (Zofran Inj) 4 mg IVP Q6H PRN PRN Reason: nausea Last Admin: 03/26/17 09:26 Dose: 4 mg Pantoprazole Sodium (Protonix Ec Tab) 40 mg PO DAILY [facility] Last Admin: 03/27/17 09:52 Dose: 40 mg Potassium Phos/Sodium Phos (Neutra-Phos) 1 pkt PO TID [facility] Last Admin: 03/27/17 09:52 Dose: 1 pkt Sodium Bicarbonate (Sodium Bicarbonate Tab) 650 mg PO BID [facility] Last Admin: 03/27/17 09:52 Dose: 650 mg Thiamine HCl (Vitamin B1 Tab) 100 mg PO DAILY [facility] Last Admin: 03/27/17 09:53 Dose: 100 mg Zolpidem Tartrate (Ambien) 5 mg PO HS PRN PRN Reason: Insomnia Last Admin: 03/26/17 22:19 Dose: 5 mg - Labs Labs: 03/27/17 06:50 03/26/17 07:08 PT 16.3 SECONDS (9.7-12.2) H 03/18/17 11:28 INR 1.4 03/18/17 11:28 APTT 39 SECONDS (21-34) H 03/18/17 11:28 - Constitutional Appears: In Acute Distress, Cachectic - Head Exam Head Exam: NORMOCEPHALIC - Eye Exam Eye Exam: PERRL - ENT Exam ENT Exam: Mucous Membranes Dry - Neck Exam Neck Exam: absent: Lymphadenopathy - Respiratory Exam Respiratory Exam: Decreased Breath Sounds, Rales, Rhonchi - Cardiovascular Exam Cardiovascular Exam: REGULAR RHYTHM - GI/Abdominal Exam GI & Abdominal Exam: Distended Assessment and Plan (1) Difficulty urinating Status: Acute (2) Difficulty walking Status: Acute (3) UTI (urinary tract infection) Status: Acute - Assessment and Plan (Free Text) Assessment: exac chf/ pneumonia iv rx in progress
[2017-03-27] MEDS ORDERED: Aztreonam 2 GM in Sodium Chloride 0.9% 100 ML IVPB SCH (12:00)
[2017-03-27] MEDS: Aztreonam 2 GM in Sodium Chloride 0.9% 100 ML IVPB SCH ×2 (14:47→23:00)
--- NOTE | 2017-03-27 15:00 | CP.PCM.PN ---
Subjective - Date & Time of Evaluation Date of Evaluation: 03/27/17 Time of Evaluation: 14:59 - Subjective Subjective: Follow up Nephrology Consultation: Assessment: critical Acute pulmonary edema/bilateral pneumonia Hypovolemic hyponatremia (urine Na <5) and contributed by infusion of hypotonic fluids, cirrhosis Hypomagnesemia, Anemia diabetes Mellitus hypertension, ex smoker, chronic etoh abuse and chronic pancreatitis UTI, back pain Plan avoid correction in serum Na >6-8 meq/24 hr. no need for hypertonic saline at this time supplemented magnesium Monitor Input/Output, daily weights and renal function with basic metabolic panel Glycemic control Further work up/management as per primary team deferred aldactone for her portal HTN until she is more stable started on antibiotics as per ID Thanks for allowing me to participate in care of your patient. Will follow patient with you. Please call if any Qs. d/w team Dr Jaya Flynn Office: [phone] Chief Complaint; SOB Reason for consult: hyponatremia HPI: Pt is a 61 y/o F with hx of diabetes Mellitus hypertension, ex smoker, chronic etoh abuse and chronic pancreatitis initially presented with complaints of dysuria and being treated with antibiotics for UTI. she was getting D5/0.45% saline and noted to have decreased serum Na to 124 hence renal consult requested pt c/o SOB, on BiPAP now Denies chest pain, palpitation, leg swelling Denies blood or bubbles in urine. Physical Examination: General Appearance: tachypenic co-operative . cachexic. on bipap Vitals reviewed and noted as below Head; Atraumatic, normocephalic ENT: no ulcers no thrush. Tongue is midline/dry. Oropharynx: no rash or ulcers. EYES: Pupils are equal, round and reactive to light accommodation. Eye muscles and extraocular movement intact. Sclera is anicteric. Neck; supple no lymphadenopathy, no thyromegaly or bruit Lungs: Increased respiratory rate/effort. Breath sounds bilateral with crackles and few wheeze Heart: Normal rate. s1s2 normal. No rub or gallop. Extremities: no edema. No varicose veins Neurological: Patient is alert, awake and oriented to person, place and time. No focal deficit. Strength bilateral appropriate and equal Skin: Warm and dry. Normal turgor. No rash. Palpitation: Normal elasticity for age Abdomen: Abdomen is soft. Bowel sounds +. There is no abdominal tenderness, no guarding/rigidity no organomegaly has ascites Psych: normal insight and normal affect/mood MSK: no joint tenderness or swelling. Digits and nails normal, no deformity : kidney or bladder not palpable Labs/imaging/EKG reviewed. Past medical history, past surgical history, family history, social history, allergy reviewed and noted as below Family hx: no hx of CKD. Rest non-contributory recent echo: normal LVEF CT abdomen: chronic pancreatitis, liver disease, increased echogenic kidneys. has compression fractures in vertebra Objective - Vital Signs/Intake and Output Vital Signs (last 24 hours): Temp Pulse Resp BP Pulse Ox 97.8 F 125 H 20 105/71 95 03/27/17 08:14 03/27/17 12:35 03/27/17 08:14 03/27/17 08:14 03/27/17 08:14 Intake and Output: 03/27/17 03/27/17 06:59 18:59 Intake Total 100 240 Balance 100 240 - Medications Medications: Current Medications Albuterol/Ipratropium (Duoneb 3 Mg/0.5 Mg (3 Ml) Ud) 3 ml INH RQ4 [facility] Last Admin: 03/27/17 12:35 Dose: 3 ml Aztreonam 2 gm/ Sodium (Chloride) 100 mls @ 200 mls/hr IVPB Q8H [facility] Last Admin: 03/27/17 14:47 Dose: 200 mls/hr Vancomycin HCl 1 gm/ Sodium (Chloride) 250 mls @ 166.667 mls/hr IVPB Q12H [facility] Insulin Aspart (Novolog) 0 unit SC ACHS [facility] PRN Reason: Protocol Last Admin: 03/27/17 11:37 Dose: Not Given Insulin Human Isoph/Insulin Regular (Novolin 70/30 (70/30 Units/Ml) 10 Ml) 10 units SC QAM [facility] Last Admin: 03/27/17 09:53 Dose: Not Given Insulin Human Isoph/Insulin Regular (Novolin 70/30 (70/30 Units/Ml) 10 Ml) 5 units SC HS [facility] Last Admin: 03/26/17 22:12 Dose: Not Given Magnesium Oxide (Mag-Ox) 800 mg PO BID [facility] Last Admin: 03/27/17 09:53 Dose: 800 mg Morphine Sulfate (Morphine) 1 mg IVP Q4H PRN PRN Reason: Pain, moderate (4-7) Last Admin: 03/26/17 13:54 Dose: 1 mg Nitrofurantoin Macrocrystals (Macrobid) 100 mg PO Q12H [facility] Last Admin: 03/27/17 13:50 Dose: 100 mg Ondansetron HCl (Zofran Inj) 4 mg IVP Q6H PRN PRN Reason: nausea Last Admin: 03/26/17 09:26 Dose: 4 mg Pantoprazole Sodium (Protonix Ec Tab) 40 mg PO DAILY [facility] Last Admin: 03/27/17 09:52 Dose: 40 mg Potassium Phos/Sodium Phos (Neutra-Phos) 1 pkt PO TID [facility] Last Admin: 03/27/17 13:51 Dose: 1 pkt Sodium Bicarbonate (Sodium Bicarbonate Tab) 650 mg PO BID [facility] Last Admin: 03/27/17 09:52 Dose: 650 mg Thiamine HCl (Vitamin B1 Tab) 100 mg PO DAILY [facility] Last Admin: 03/27/17 09:53 Dose: 100 mg Zolpidem Tartrate (Ambien) 5 mg PO HS PRN PRN Reason: Insomnia Last Admin: 03/26/17 22:19 Dose: 5 mg - Labs Labs: 03/27/17 06:50 03/26/17 07:08 PT 16.3 SECONDS (9.7-12.2) H 03/18/17 11:28 INR 1.4 03/18/17 11:28 APTT 39 SECONDS (21-34) H 03/18/17 11:28
--- NOTE | 2017-03-27 15:55 | RAD ---
HISTORY: rapid COMPARISON: Chest radiograph dated 03/26/2017 FINDINGS: LUNGS: Worsening bilateral pulmonary edema. PLEURA: Stable small right pleural effusion pole cortical left pleural effusion. . Equivocal left pleural effusion. No pneumothorax apparent. CARDIOVASCULAR: Normal. OSSEOUS STRUCTURES: Unchanged. VISUALIZED UPPER ABDOMEN: Normal. OTHER FINDINGS: None. IMPRESSION: Worsening bilateral pulmonary edema. No significant change in small right pleural effusion.
--- NOTE | 2017-03-27 16:23 | PCM.RRT ---
[employer] Nurses Assessment - Situation Date: 03/27/17 Time [employer]ACING [employer]ING C[employer] was called: 15:30 [employer] Responder Arrival Time:: 15:32 [employer] [employer] Location:: 3T Med/Oncology [facility] [employer] Reason for Call: Hypotension, O2 Saturation below 90% [employer] Called By: RN - IV IV Inserted during [employer]ACING [employer]ING CUTTER?: No New IV Insertion Tolerance: Fair - Respiratory [employer] Delivery Method: BiPAP @% Received Nebulizer Treatments: No Was the Patient Ventilated with Bag/Mask 100% O2?: No - Ventilator Settings FIO2 (% Oxygen): 50 - Diagnostic Test Ordered EKG: Yes Chest X-Ray: Yes (looks like fluid overload) CT Scan: Yes (Chest w/o contrast pending) CPR started during LACING STRING CUTTER?: No - Demetria Coma Scale Coma Scale Eye Opening: Spontaneous Coma Scale Motor: Obeys Commands Movement Coma Scale Verbal: Oriented Coma Scale Total: 15 - Sepsis Screen Part 2 Sepsis Screen Part 2: Platelets under 80,000 - Time [employer]ACING [employer]ING C[employer]TER Ended Time [employer]ING [employer] Ended: 16:00 - Vital Signs at end of [employer]ACING [employer]ING C[employer]TER Vital Signs at end of [employer]ACING [employer]ING C[employer]TER: Patients BP was stable during LACING [employer]ING C[employer]TER; 118/75 - Recommendations 5) [employer] Level of Care Recommendations: Transfer to ICU Notifications: Attending Physician, Consultations - Neurological Status (Select all that apply): Alert, Responsive, Oriented, Verbal, Follows Commands - Respiratory Oxygen Delivery Method: BiPAP @% Oxygen Flow Rate: 40 - Constitutional Appears: Non-toxic - Head Head Exam: ATRAUMATIC - Eyes Eye Exam: EOMI - Respiratory Exam Respiratory Exam: Rales, Rhonchi, Wheezes. absent: Clear to Ausculation Bilateral, Respiratory Distress - Cardiovascular Exam Cardiovascular Exam: Tachycardia - GI/Abdominal Exam GI & Abdominal Exam: Distended, Soft, Tenderness - Neurological Exam Neurological Exam: Alert, Awake Plan - Assessment of Findings&Treatment Plan Chest X-Ray shows worsening pulm edema and a stable right plural effusion Patient was talking and verbal during entire [employer] Patient will be transferred to ICU as per Dr. Atkinson EKG shows sinus tachy Cat scan shows diffuse fibrosis; plan to intubate the patient as per Dr. Atkinson Per RN and Benja Mae the patient is OK with intubation and CPR; wishes to remain full code
--- NOTE | 2017-03-27 16:27 | CT ---
PROCEDURE: CT Chest without contrast HISTORY: SOB/Rapid COMPARISON: Chest radiograph performed earlier the same day; CT angiography of the chest dated 11/30/2016. TECHNIQUE: Contiguous axial images were obtained through the chest without intravenous contrast enhancement. Sagittal and coronal reconstructions were performed. Radiation dose (DLP): 230.3 mGy-cm. This CT exam was performed using one or more of the following dose reduction techniques: Automated exposure control, adjustment of the mA and/or kV according to patient size, and/or use of iterative reconstruction technique. FINDINGS: LUNGS: Marked pulmonary edema as on chest radiography. Small to moderate bilateral pleural effusions. MEDIASTINUM: Unremarkable thoracic aorta. No aneurysm. Atherosclerotic calcifications. Normal sized heart. Coronary arterial and valvular calcifications. Main pulmonary artery unremarkable. No lymphadenopathy. PLEURA: No pleural fluid. No pneumothorax. BONES: Scoliosis, degenerative changes. Nonacute superior T12 endplate depression. Chronic T8 wedge deformity. No destructive lesion. UPPER ABDOMEN: Small to moderate perihepatic and perisplenic ascites. OTHER FINDINGS: None. IMPRESSION: Marked bilateral pulmonary edema as seen on chest radiography. Small to moderate bilateral pleural effusions. Small to moderate perihepatic and perisplenic ascites.
--- NOTE | 2017-03-27 17:09 | CP.PCM.CON ---
<Mic Sanches - Last Filed: 03/27/17 17:02> History of Present Illness - History of Present Illness History of Present Illness: PGY1 ICU consult note for Dr. Atkinson Reason for Consult: Respiratory Distress Patient is a 61 year old female with a PMH of DM, hypertension, emphysema (ex smoker) and chronic pancreatitis (chronic etoh abuse) initially presented to the hospital with complaints of dysuria and has been being treated with antibiotics for UTI. Patient has been becoming increasingly short of breath the previous couple of days. She was placed on BiPAP and saturating well until an BOTTLING ATTENDANT was called on patient today for increasing respiratory distress. CXR showed worsening pulmonary edema. Patient was tachycardic at ~150 with agonal breathing while on BiPAP. Patient will be transferred to ICU to be intubated. Review of Systems - Review of Systems Systems not reviewed;Unavailable: Respiratory Distress Past Patient History - Infectious Disease Hx of Infectious Diseases: None - Past Medical History & Family History Past Medical History?: Yes - Past Social History Smoking Status: Former Smoker - CARDIAC Hx Congestive Heart Failure: Yes Hx Hypertension: Yes - PULMONARY Hx Respiratory Disorders: No - NEUROLOGICAL Hx Transient Ischemic Attacks (TIA): Yes (As per pt) - HEENT Hx HEENT Problems: No - RENAL Hx Chronic Kidney Disease: No - ENDOCRINE/METABOLIC Hx Diabetes Mellitus Type 1: Yes - HEMATOLOGICAL/ONCOLOGICAL Hx Blood Disorders: Yes Hx Anemia: Yes Hx Blood Transfusions: Yes - INTEGUMENTARY Hx Dermatological Problems: No - MUSCULOSKELETAL/RHEUMATOLOGICAL Hx Falls: Yes Hx Fractures: Yes (left 5th metacarpal) - GASTROINTESTINAL Hx Gastrointestinal Disorders: No - GENITOURINARY/GYNECOLOGICAL Hx Genitourinary Disorders: No - PSYCHIATRIC Hx Depression: Yes Hx Substance Use: No - SURGICAL HISTORY Hx Surgeries: Yes Hx Angiogram: Yes (Lt Hrt Angiocardiogram 04/2014) Hx Cardiac Catheterization: Yes (Lt hrt Cardiac cath 04/2014) Hx Orthopedic Surgery: Yes (left wrist) Other/Comment: ABDOMINAL EXPLORITORY SX. - ANESTHESIA Hx Anesthesia: Yes Hx Anesthesia Reactions: No Hx Malignant Hyperthermia: No Meds Allergies/Adverse Reactions: Allergies Allergy/AdvReac Type Severity Reaction Status Date / Time acetaminophen [From Tylenol] Allergy Intermediate SWELLING Verified 03/17/17 14: 32 codeine Allergy Intermediate SWELLING Verified 03/17/17 14:32 Penicillins Allergy Intermediate SWELLING Verified 03/17/17 14:32 - Medications Medications: Current Medications Albuterol/Ipratropium (Duoneb 3 Mg/0.5 Mg (3 Ml) Ud) 3 ml INH RQ4 [facility] Last Admin: 03/27/17 15:45 Dose: 3 ml Aztreonam 2 gm/ Sodium (Chloride) 100 mls @ 200 mls/hr IVPB Q8H [facility] Last Admin: 03/27/17 14:47 Dose: 200 mls/hr Vancomycin HCl 1 gm/ Sodium (Chloride) 250 mls @ 166.667 mls/hr IVPB Q12H [facility] Insulin Aspart (Novolog) 0 unit SC ACHS [facility] PRN Reason: Protocol Last Admin: 03/27/17 11:37 Dose: Not Given Insulin Human Isoph/Insulin Regular (Novolin 70/30 (70/30 Units/Ml) 10 Ml) 10 units SC QAM [facility] Last Admin: 03/27/17 09:53 Dose: Not Given Insulin Human Isoph/Insulin Regular (Novolin 70/30 (70/30 Units/Ml) 10 Ml) 5 units SC HS [facility] Last Admin: 03/26/17 22:12 Dose: Not Given Magnesium Oxide (Mag-Ox) 800 mg PO BID [facility] Last Admin: 03/27/17 09:53 Dose: 800 mg Morphine Sulfate (Morphine) 1 mg IVP Q4H PRN PRN Reason: Pain, moderate (4-7) Last Admin: 03/26/17 13:54 Dose: 1 mg Nitrofurantoin Macrocrystals (Macrobid) 100 mg PO Q12H [facility] Last Admin: 03/27/17 13:50 Dose: 100 mg Ondansetron HCl (Zofran Inj) 4 mg IVP Q6H PRN PRN Reason: nausea Last Admin: 03/26/17 09:26 Dose: 4 mg Pantoprazole Sodium (Protonix Ec Tab) 40 mg PO DAILY [facility] Last Admin: 03/27/17 09:52 Dose: 40 mg Potassium Phos/Sodium Phos (Neutra-Phos) 1 pkt PO TID [facility] Last Admin: 03/27/17 13:51 Dose: 1 pkt Sodium Bicarbonate (Sodium Bicarbonate Tab) 650 mg PO BID [facility] Last Admin: 03/27/17 09:52 Dose: 650 mg Thiamine HCl (Vitamin B1 Tab) 100 mg PO DAILY [facility] Last Admin: 03/27/17 09:53 Dose: 100 mg Zolpidem Tartrate (Ambien) 5 mg PO HS PRN PRN Reason: Insomnia Last Admin: 03/26/17 22:19 Dose: 5 mg Physical Exam - Constitutional Appears: In Acute Distress (respiratory distress while on BiPAP) - Head Exam Head Exam: ATRAUMATIC, NORMOCEPHALIC - Eye Exam Eye Exam: EOMI - Respiratory Exam Respiratory Exam: Prolonged Expiratory Phase, Rales, Rhonchi, Wheezes, Respiratory Distress (on BiPAP) - Cardiovascular Exam Cardiovascular Exam: Tachycardia (~150s) - Neurological Exam Neurological exam: Alert Results - Vital Signs Recent Vital Signs: Last Vital Signs Temp 97.8 F 03/27/17 08:14 Pulse 125 H 03/27/17 16:35 Resp 20 03/27/17 08:14 BP 111/74 03/27/17 15:09 Pulse Ox 94 L 03/27/17 15:09 - Labs Result Diagrams: 03/27/17 06:50 03/26/17 07:08 Labs: Laboratory Results - last 24 hr 03/20/17 03/23/17 03/23/17 07:14 17:19 17:19 WBC RBC Hgb Hct MCV MCH MCHC RDW Plt Count MPV Neut % (Auto) Lymph % (Auto) Archer % (Auto) Eos % (Auto) Baso % (Auto) Neut # Lymph # Archer # Eos # Baso # POC Glucose (mg/dL) Peritoneal LDH 19 Peritoneal Glucose 117 Serum Immunofixation Detected H 03/26/17 03/26/17 03/27/17 16:51 21:07 06:50 WBC 10.3 RBC 3.15 L Hgb 11.9 Hct 35.1 MCV 111.5 H MCH 37.9 H MCHC 34.0 RDW 13.5 Plt Count 30 L* D MPV 12.7 H Neut % (Auto) 79.5 H Lymph % (Auto) 13.2 L Archer % (Auto) 6.2 Eos % (Auto) 0.2 Baso % (Auto) 0.9 Neut # 8.2 H Lymph # 1.4 Archer # 0.6 Eos # 0.0 Baso # 0.1 POC Glucose (mg/dL) 139 H 126 H Peritoneal LDH Peritoneal Glucose Serum Immunofixation 03/27/17 03/27/17 03/27/17 06:55 11:14 14:37 WBC RBC Hgb Hct MCV MCH MCHC RDW Plt Count MPV Neut % (Auto) Lymph % (Auto) Archer % (Auto) Eos % (Auto) Baso % (Auto) Neut # Lymph # Archer # Eos # Baso # POC Glucose (mg/dL) 112 H 127 H 88 Peritoneal LDH Peritoneal Glucose Serum Immunofixation 03/27/17 15:39 WBC RBC Hgb Hct MCV MCH MCHC RDW Plt Count MPV Neut % (Auto) Lymph % (Auto) Archer % (Auto) Eos % (Auto) Baso % (Auto) Neut # Lymph # Archer # Eos # Baso # POC Glucose (mg/dL) 84 Peritoneal LDH Peritoneal Glucose Serum Immunofixation Assessment & Plan - Assessment and Plan (Free Text) Assessment: Patient is a 61 year old female with increasing respiratory distress most likely 2/2 ARDS vs pulmonary edema. Plan: Respiratory: CXR 03/27 - Worsening bilateral pulmonary edema. No significant change in small right pleural effusion. Chest CT w/o 03/27 - Marked bilateral pulmonary edema as seen on chest radiography. Small to moderate bilateral pleural effusions.Small to moderate perihepatic and perisplenic ascites. Patient to be transferred to ICU to be intubated. f/u post intubation CXR f/u post intubation ABG : Dr. Mejia consulted Dr. Dos Santos consulted switched to Nitrofuratoin today, per Dr. Dos Santos. Completed 7 days of Tigecycline. ESBL E. Coli in urine culture. Dr. Dos Santos consulted F/U repeat urine culture - Gram negative alondra Prophylactic Care: hold VTE due to thrombocytopenia protonix and SCDs Case discussed with Dr. Demetrio Haile Verónica PGY1 <Erwin Atkinson - Last Filed: 03/28/17 17:30> Meds - Medications Medications: Current Medications Albuterol/Ipratropium (Duoneb 3 Mg/0.5 Mg (3 Ml) Ud) 3 ml INH RQ4 [facility] Last Admin: 03/28/17 16:13 Dose: 3 ml Aztreonam 2 gm/ Sodium (Chloride) 100 mls @ 200 mls/hr IVPB Q8H [facility] Last Admin: 03/28/17 14:44 Dose: 200 mls/hr Vancomycin HCl 1 gm/ Sodium (Chloride) 250 mls @ 166.667 mls/hr IVPB Q12H [facility] Last Admin: 03/28/17 17:23 Dose: 166.667 mls/hr Phenylephrine HCl 30 mg/ (Dextrose) 253 mls @ 10.12 mls/hr IV .Q24H PRN; Protocol; 20 MCG/MIN PRN Reason: TITRATE PER MD ORDER Last Admin: 03/28/17 17:27 Dose: 180 mcg/min, 91.08 mls/hr Midazolam HCl 100 mg/ Dextrose 100 mls @ 0.63 mls/hr IV .Q24H [place]; 0.02 MG/KG/ HR PRN Reason: Protocol Last Titration: 03/28/17 01:00 Dose: 0 mg/kg/hr, 0 mls/hr Sodium Bicarbonate 75 meq/ (Sodium Chloride) 1,000 mls @ 125 mls/hr IV .Q8H [facility] Last Admin: 03/28/17 17:26 Dose: 125 mls/hr Norepinephrine Bitartrate 8 mg (/ Dextrose) 258 mls @ 7.74 mls/hr IV .Q24H PRN ; Protocol; 4 MCG/MIN PRN Reason: TITRATE PER MD ORDER Last Admin: 03/28/17 14:40 Dose: 20 mcg/min, 38.7 mls/hr Vasopressin 40 units/ Sodium (Chloride) 42 mls @ 0.63 mls/hr IV .Q24H [place]; 0.01 UNITS/MIN PRN Reason: Protocol Last Titration: 03/28/17 11:52 Dose: 0.04 units/min, 2.52 mls/hr Insulin Aspart (Novolog) 0 unit SC Q6 [facility] PRN Reason: Protocol Last Admin: 03/28/17 11:59 Dose: Not Given Morphine Sulfate (Morphine) 1 mg IVP Q4H PRN PRN Reason: Pain, moderate (4-7) Last Admin: 03/26/17 13:54 Dose: 1 mg Pantoprazole Sodium (Protonix Inj) 40 mg IVP Q12H [facility] Last Admin: 03/28/17 09:39 Dose: 40 mg Results - Vital Signs Recent Vital Signs: Last Vital Signs Temp 97.5 F L 03/28/17 16:26 Pulse 125 H 03/28/17 17:13 Resp 35 H 03/28/17 17:13 BP 108/66 03/28/17 17:27 Pulse Ox 87 L 03/28/17 17:13 - Labs Result Diagrams: 03/28/17 04:41 03/28/17 04:41 Labs: Laboratory Results - last 24 hr 03/23/17 03/27/17 03/27/17 17:19 19:18 20:25 WBC RBC Hgb Hct MCV MCH MCHC RDW Plt Count MPV Neut % (Auto) Lymph % (Auto) Archer % (Auto) Eos % (Auto) Baso % (Auto) Neut # Lymph # Archer # Eos # Baso # Neutrophils % (Manual) Band Neutrophils % Lymphocytes % (Manual) Monocytes % (Manual) Myelocytes % Platelet Estimate Retic Count PT INR APTT Fibrinogen Puncture Site pCO2 pO2 HCO3 ABG pH ABG Total CO2 ABG O2 Saturation ABG Base Excess ABG Hemoglobin ABG Carboxyhemoglobin POC ABG HHb (Measured) ABG Methemoglobin Crescencio Test ABG Potassium A-a O2 Difference Respiratory Index Hgb O2 Saturation Glucose Lactate Vent Mode Mechanical Rate FiO2 Tidal Volume PEEP Crit Value Called To Crit Value Called By Crit Value Read Back Blood Gas Notified Time Sodium Potassium Chloride Carbon Dioxide Anion Gap BUN Creatinine Est GFR ( Amer) Est GFR (Non-Af Amer) POC Glucose (mg/dL) < 20 L* 199 H Random Glucose Lactic Acid Calcium Phosphorus Magnesium Ferritin Total Bilirubin AST ALT Alkaline Phosphatase Total Protein Albumin Globulin Albumin/Globulin Ratio Vitamin B12 Folate Arterial Blood Potassium Urine Color Urine Clarity Urine pH Ur Specific [place] Urine Protein Urine Glucose (UA) Urine Ketones Urine Blood Urine Nitrate Urine Bilirubin Urine Urobilinogen Ur Leukocyte Esterase Urine WBC (Auto) Urine RBC (Auto) Ur Squamous Epith Cells Urine Bacteria Hyaline Casts Peritoneal CEA 3 H Blood Type Antibody Screen Antibody Identification 03/27/17 03/27/17 03/27/17 20:28 20:28 21:10 WBC 4.9 D RBC 2.14 L Hgb 8.0 L D Hct 24.5 L MCV 114.4 H D MCH 37.3 H MCHC 32.6 L RDW 14.4 Plt Count 9 L* D MPV 10.6 Neut % (Auto) 97.5 H Lymph % (Auto) 1.1 L Archer % (Auto) 0.5 Eos % (Auto) 0.6 Baso % (Auto) 0.3 Neut # 4.8 Lymph # 0.1 L Archer # 0.0 Eos # 0.0 Baso # 0.0 Neutrophils % (Manual) 80 H Band Neutrophils % 14 H* Lymphocytes % (Manual) 3 L Monocytes % (Manual) 2 Myelocytes % 1 H Platelet Estimate Markedly decreased L Retic Count PT INR APTT Fibrinogen Puncture Site Rba pCO2 47 H pO2 70 L HCO3 18.3 L ABG pH 7.21 L ABG Total CO2 20.2 L ABG O2 Saturation 96.2 ABG Base Excess -8.5 L ABG Hemoglobin 7.6 L ABG Carboxyhemoglobin 2.1 H POC ABG HHb (Measured) 3.7 ABG Methemoglobin 1.0 Crescencio Test Na ABG Potassium A-a O2 Difference 584.0 Respiratory Index 8.3 Hgb O2 Saturation 93.3 L Glucose Lactate Vent Mode Prvc Mechanical Rate 14 FiO2 100.0 Tidal Volume 400 PEEP 5 Crit Value Called To Crit Value Called By Crit Value Read Back Blood Gas Notified Time Sodium 125 L Potassium 3.8 Chloride 95 L Carbon Dioxide 18 L Anion Gap 15 BUN 19 H Creatinine 1.0 Est GFR ( Amer) > 60 Est GFR (Non-Af Amer) 57 POC Glucose (mg/dL) Random Glucose 209 H Lactic Acid Calcium 6.7 L Phosphorus 3.2 Magnesium 1.2 L Ferritin Total Bilirubin 2.5 H AST 73 H D ALT 41 Alkaline Phosphatase 58 Total Protein 3.0 L Albumin 1.2 L D Globulin 1.8 L Albumin/Globulin Ratio 0.7 L Vitamin B12 Folate Arterial Blood Potassium Urine Color Urine Clarity Urine pH Ur Specific [place] Urine Protein Urine Glucose (UA) Urine Ketones Urine Blood Urine Nitrate Urine Bilirubin Urine Urobilinogen Ur Leukocyte Esterase Urine WBC (Auto) Urine RBC (Auto) Ur Squamous Epith Cells Urine Bacteria Hyaline Casts Peritoneal CEA Blood Type Antibody Screen Antibody Identification 03/27/17 03/27/17 03/28/17 21:42 23:53 00:17 WBC RBC Hgb Hct MCV MCH MCHC RDW Plt Count MPV Neut % (Auto) Lymph % (Auto) Archer % (Auto) Eos % (Auto) Baso % (Auto) Neut # Lymph # Archer # Eos # Baso # Neutrophils % (Manual) Band Neutrophils % Lymphocytes % (Manual) Monocytes % (Manual) Myelocytes % Platelet Estimate Retic Count PT INR APTT Fibrinogen Puncture Site pCO2 pO2 HCO3 ABG pH ABG Total CO2 ABG O2 Saturation ABG Base Excess ABG Hemoglobin ABG Carboxyhemoglobin POC ABG HHb (Measured) ABG Methemoglobin Crescencio Test ABG Potassium A-a O2 Difference Respiratory Index Hgb O2 Saturation Glucose Lactate Vent Mode Mechanical Rate FiO2 Tidal Volume PEEP Crit Value Called To Crit Value Called By Crit Value Read Back Blood Gas Notified Time Sodium Potassium Chloride Carbon Dioxide Anion Gap BUN Creatinine Est GFR ( Amer) Est GFR (Non-Af Amer) POC Glucose (mg/dL) 86 Random Glucose Lactic Acid 7.9 H* Calcium Phosphorus Magnesium Ferritin Total Bilirubin AST ALT Alkaline Phosphatase Total Protein Albumin Globulin Albumin/Globulin Ratio Vitamin B12 Folate Arterial Blood Potassium Urine Color Urine Clarity Urine pH Ur Specific [place] Urine Protein Urine Glucose (UA) Urine Ketones Urine Blood Urine Nitrate Urine Bilirubin Urine Urobilinogen Ur Leukocyte Esterase Urine WBC (Auto) Urine RBC (Auto) Ur Squamous Epith Cells Urine Bacteria Hyaline Casts Peritoneal CEA Blood Type B POSITIVE Antibody Screen Positive Antibody Identification Anti E 03/28/17 03/28/17 03/28/17 04:35 04:41 04:41 WBC 20.4 H D RBC 3.18 L Hgb 11.2 D Hct 34.3 MCV 107.9 H D MCH 35.1 H MCHC 32.5 L RDW 18.5 H Plt Count 5 L* MPV 11.2 Neut % (Auto) 94.3 H Lymph % (Auto) 2.9 L Archer % (Auto) 2.3 Eos % (Auto) 0.4 Baso % (Auto) 0.1 Neut # 19.3 H Lymph # 0.6 L Archer # 0.5 Eos # 0.1 Baso # 0.0 Neutrophils % (Manual) 69 Band Neutrophils % 27 H* Lymphocytes % (Manual) 2 L Monocytes % (Manual) 2 Myelocytes % Platelet Estimate Markedly decreased L Retic Count 1.0 D PT INR APTT Fibrinogen Puncture Site Lb pCO2 42 pO2 87 HCO3 19.6 L ABG pH 7.28 L ABG Total CO2 21.0 L ABG O2 Saturation 98.8 H ABG Base Excess -6.8 L ABG Hemoglobin ABG Carboxyhemoglobin POC ABG HHb (Measured) ABG Methemoglobin Crescencio Test Na ABG Potassium 4.2 A-a O2 Difference 574.0 Respiratory Index 6.6 Hgb O2 Saturation Glucose 90 Lactate 6.4 H* Vent Mode Prvc Mechanical Rate 14 FiO2 100.0 Tidal Volume 400 PEEP 5 Crit Value Called To Kathie peters/rn Crit Value Called By Wilmer almaguer/rt Crit Value Read Back Y Blood Gas Notified Time 445 Sodium 129.0 L 126 L Potassium 3.8 Chloride 99.0 94 L Carbon Dioxide 20 L Anion Gap 16 BUN 20 H Creatinine 1.1 Est GFR ( Amer) > 60 Est GFR (Non-Af Amer) 51 POC Glucose (mg/dL) Random Glucose 80 Lactic Acid Calcium 6.9 L Phosphorus Magnesium Ferritin Total Bilirubin 4.3 H AST 140 H D ALT 73 H D Alkaline Phosphatase 49 Total Protein 3.7 L Albumin 1.5 L D Globulin 2.2 Albumin/Globulin Ratio 0.7 L Vitamin B12 Folate Arterial Blood Potassium 4.2 Urine Color Urine Clarity Urine pH Ur Specific [place] Urine Protein Urine Glucose (UA) Urine Ketones Urine Blood Urine Nitrate Urine Bilirubin Urine Urobilinogen Ur Leukocyte Esterase Urine WBC (Auto) Urine RBC (Auto) Ur Squamous Epith Cells Urine Bacteria Hyaline Casts Peritoneal CEA Blood Type Antibody Screen Antibody Identification 03/28/17 03/28/17 03/28/17 04:41 04:41 04:45 WBC RBC Hgb Hct MCV MCH MCHC RDW Plt Count MPV Neut % (Auto) Lymph % (Auto) Archer % (Auto) Eos % (Auto) Baso % (Auto) Neut # Lymph # Archer # Eos # Baso # Neutrophils % (Manual) Band Neutrophils % Lymphocytes % (Manual) Monocytes % (Manual) Myelocytes % Platelet Estimate Retic Count PT 29.5 H* INR 2.5 APTT 113 H* Fibrinogen 89 L Puncture Site pCO2 pO2 HCO3 ABG pH ABG Total CO2 ABG O2 Saturation ABG Base Excess ABG Hemoglobin ABG Carboxyhemoglobin POC ABG HHb (Measured) ABG Methemoglobin Crescencio Test ABG Potassium A-a O2 Difference Respiratory Index Hgb O2 Saturation Glucose Lactate Vent Mode Mechanical Rate FiO2 Tidal Volume PEEP Crit Value Called To Crit Value Called By Crit Value Read Back Blood Gas Notified Time Sodium Potassium Chloride Carbon Dioxide Anion Gap BUN Creatinine Est GFR ( Amer) Est GFR (Non-Af Amer) POC Glucose (mg/dL) Random Glucose Lactic Acid 6.4 H* Calcium Phosphorus Magnesium Ferritin 752.0 Total Bilirubin AST ALT Alkaline Phosphatase Total Protein Albumin Globulin Albumin/Globulin Ratio Vitamin B12 > 1000 H Folate 4.9 Arterial Blood Potassium Urine Color Urine Clarity Urine pH Ur Specific [place] Urine Protein Urine Glucose (UA) Urine Ketones Urine Blood Urine Nitrate Urine Bilirubin Urine Urobilinogen Ur Leukocyte Esterase Urine WBC (Auto) Urine RBC (Auto) Ur Squamous Epith Cells Urine Bacteria Hyaline Casts Peritoneal CEA Blood Type Antibody Screen Antibody Identification 03/28/17 03/28/17 03/28/17 05:44 08:15 11:31 WBC RBC Hgb Hct MCV MCH MCHC RDW Plt Count MPV Neut % (Auto) Lymph % (Auto) Archer % (Auto) Eos % (Auto) Baso % (Auto) Neut # Lymph # Archer # Eos # Baso # Neutrophils % (Manual) Band Neutrophils % Lymphocytes % (Manual) Monocytes % (Manual) Myelocytes % Platelet Estimate Retic Count PT INR APTT Fibrinogen Puncture Site pCO2 pO2 HCO3 ABG pH ABG Total CO2 ABG O2 Saturation ABG Base Excess ABG Hemoglobin ABG Carboxyhemoglobin POC ABG HHb (Measured) ABG Methemoglobin Crescencio Test ABG Potassium A-a O2 Difference Respiratory Index Hgb O2 Saturation Glucose Lactate Vent Mode Mechanical Rate FiO2 Tidal Volume PEEP Crit Value Called To Crit Value Called By Crit Value Read Back Blood Gas Notified Time Sodium Potassium Chloride Carbon Dioxide Anion Gap BUN Creatinine Est GFR ( Amer) Est GFR (Non-Af Amer) POC Glucose (mg/dL) 94 142 H Random Glucose Lactic Acid Calcium Phosphorus 3.7 Magnesium 1.2 L Ferritin Total Bilirubin AST ALT Alkaline Phosphatase Total Protein Albumin Globulin Albumin/Globulin Ratio Vitamin B12 Folate Arterial Blood Potassium Urine Color Urine Clarity Urine pH Ur Specific [place] Urine Protein Urine Glucose (UA) Urine Ketones Urine Blood Urine Nitrate Urine Bilirubin Urine Urobilinogen Ur Leukocyte Esterase Urine WBC (Auto) Urine RBC (Auto) Ur Squamous Epith Cells Urine Bacteria Hyaline Casts Peritoneal CEA Blood Type Antibody Screen Antibody Identification 03/28/17 17:02 WBC RBC Hgb Hct MCV MCH MCHC RDW Plt Count MPV Neut % (Auto) Lymph % (Auto) Archer % (Auto) Eos % (Auto) Baso % (Auto) Neut # Lymph # Archer # Eos # Baso # Neutrophils % (Manual) Band Neutrophils % Lymphocytes % (Manual) Monocytes % (Manual) Myelocytes % Platelet Estimate Retic Count PT INR APTT Fibrinogen Puncture Site pCO2 pO2 HCO3 ABG pH ABG Total CO2 ABG O2 Saturation ABG Base Excess ABG Hemoglobin ABG Carboxyhemoglobin POC ABG HHb (Measured) ABG Methemoglobin Crescencio Test ABG Potassium A-a O2 Difference Respiratory Index Hgb O2 Saturation Glucose Lactate Vent Mode Mechanical Rate FiO2 Tidal Volume PEEP Crit Value Called To Crit Value Called By Crit Value Read Back Blood Gas Notified Time Sodium Potassium Chloride Carbon Dioxide Anion Gap BUN Creatinine Est GFR ( Amer) Est GFR (Non-Af Amer) POC Glucose (mg/dL) Random Glucose Lactic Acid Calcium Phosphorus Magnesium Ferritin Total Bilirubin AST ALT Alkaline Phosphatase Total Protein Albumin Globulin Albumin/Globulin Ratio Vitamin B12 Folate Arterial Blood Potassium Urine Color Ruba Urine Clarity Hazy Urine pH 5.0 Ur Specific [place] 1.038 H Urine Protein 2+ H Urine Glucose (UA) Normal Urine Ketones Trace Urine Blood 1+ H Urine Nitrate Negative Urine Bilirubin Negative Urine Urobilinogen Normal Ur Leukocyte Esterase Neg Urine WBC (Auto) 5 Urine RBC (Auto) 4 H Ur Squamous Epith Cells 2 Urine Bacteria Rare Hyaline Casts >20 H Peritoneal CEA Blood Type Antibody Screen Antibody Identification Attending/Attestation - Attestation I have personally seen and examined this patient.: Yes I have fully participated in the care of the patient.: Yes I have reviewed all pertinent clinical information: Yes Notes (Text): 03/28/17 17:29 Patient seen and examined. 61-year-old female transferred to intensive care unit for severe respiratory distress, hypotension Patient intubated and placed on ventilatory support after she did not respond to BiPAP IV antibiotics Follow-up culture and sensitivity IV fluids as needed Bronchodilators and steroids Follow-up platelet count and transfuse as needed
[2017-03-27] MEDS ORDERED: Dexmedetomidine Hydrochloride 200 MCG in Sodium Chloride 0.9% 48 ML IV PRN (18:08)
[2017-03-27] MEDS ORDERED: Midazolam 2 MG/2 ML VIAL IVP ONE (18:09)
[2017-03-27] MEDS ORDERED: Midazolam 2 MG/2 ML VIAL ONE (18:27)
--- NOTE | 2017-03-27 18:58 | PCM.PROC ---
Procedures Attestation:: I certify that I have explained the specified Operation(s) or Procedure(s), risks, benefits and reasonable alternatives to the Patient and/or other person responsible. The opportunity was given to ask questions and all questions answered - Central Line Placement Right Internal Jugular Triple Lumen Catheter Aseptic technique was employed throughout the procedure: Hand Hygiene done prior to procedure, Full sterile barriers (mask, hair cover, sterile gown, sterile gloves), Full body sterile drape, Chloraprep Antiseptic: 30 second prep for IJ or SC sites CVP Time Out Performed: Yes Pt. Placed on Pulse Ox Monitor: Yes Central Line Prep: Chlorhexidine-Alcohol Combination Local Anesthesia Used: Lidocaine 2% Amount of Anesthesia Used (mls): 3 Ultrasound Used for Placement: Yes Central Line Lumen Inserted: triple Central Line Length: 16 cm Post Procedure: Sutured in Place, Good Blood Return, All Ports Aspirated, Flushed, Capped, Sterile Dressing Applied Secured by: Suture Post procedure dressing: Chlorhexidine disc (Biopatch) Post Procedure X-Ray: Yes Patient Tolerated Procedure: Well
--- NOTE | 2017-03-27 18:59 | PCM.PROC ---
Procedures Attestation:: I certify that I have explained the specified Operation(s) or Procedure(s), risks, benefits and reasonable alternatives to the Patient and/or other person responsible. The opportunity was given to ask questions and all questions answered - Intubation Time Out Performed: Yes Sedative: Etomidate Mg Given: 20 Laryngoscope: Barbara ET Tube Size: 8.0 ET Tube Uncuffed: No ET Tube Secured at Depth: 21 ET Tube Secured Locarion: Lips ET Tube Placement Confirmation: Visualized Passing Through Cords, Breath Sounds Equal Bilaterally, No Breath Sounds Over Epigastrum, Confirmation w/Capnometry Patient Tolerated Procedure: Well Procedure Immediate Complications: None
[2017-03-27] MEDS ORDERED: Dextrose 50% VIAL Inj (50 ml) IV ONE (19:23)
[2017-03-27] MEDS ORDERED: Dextrose 50% SYRINGE Inj (50 ml) IV STA (19:23)
[2017-03-27 20:35] LABS: BASO % 0.3 % (0.0-2.0); EOS % 0.6 % (0.0-4.0); HEMATOCRIT 24.5 % (34.0-47.0); LYMPH # 0.1 K/uL (1.0-4.3); LYMPH % 1.1 % (20.0-40.0); MEAN CELL VOLUME 114.4 fL (81.0-99.0); MEAN CORPUSCULAR HEMOGLOBIN 37.3 pg (27.0-31.0); MEAN CORPUSCULAR HGB CONC 32.6 g/dL (33.0-37.0); MEAN PLATELET VOLUME 10.6 fL (7.2-11.7); MONO % 0.5 % (0.0-10.0); NRBC % 0.8 % (0.0-2.0); RED CELL DISTRIBUTION WIDTH 14.4 % (11.5-14.5); WHITE BLOOD COUNT 4.9 K/uL (4.8-10.8)
[2017-03-27 20:43] LABS: PLATELET COUNT 9 K/uL (130-400)
--- NOTE | 2017-03-27 20:47 | CP.PCM.CON ---
History of Present Illness - History of Present Illness History of Present Illness: 61 year old female with a history of alcohol abuse, chronic pancreatitis, DM, HTN, being treated for UTI, admitted to ICU with respiratory failure, with thrombocytopenia, anemia, and coagulopathy. The patient is currently intubated and I am unable to obtain a history from the patient. Review of her medical records shows she has had thrombocytopenia chronically since 2014. There is no obvious sign of bleeding. Past medical, surgical, family, social history cannot be obtained from the patient. Allergies: Several, see list Review of systems cannot be obtained from the patient. Past Patient History - Infectious Disease Hx of Infectious Diseases: None - Past Medical History & Family History Past Medical History?: Yes - Past Social History Smoking Status: Former Smoker - CARDIAC Hx Congestive Heart Failure: Yes Hx Hypertension: Yes - PULMONARY Hx Respiratory Disorders: No - NEUROLOGICAL Hx Transient Ischemic Attacks (TIA): Yes (As per pt) - HEENT Hx HEENT Problems: No - RENAL Hx Chronic Kidney Disease: No - ENDOCRINE/METABOLIC Hx Diabetes Mellitus Type 1: Yes - HEMATOLOGICAL/ONCOLOGICAL Hx Blood Disorders: Yes Hx Anemia: Yes Hx Blood Transfusions: Yes - INTEGUMENTARY Hx Dermatological Problems: No - MUSCULOSKELETAL/RHEUMATOLOGICAL Hx Falls: Yes Hx Fractures: Yes (left 5th metacarpal) - GASTROINTESTINAL Hx Gastrointestinal Disorders: No - GENITOURINARY/GYNECOLOGICAL Hx Genitourinary Disorders: No - PSYCHIATRIC Hx Depression: Yes Hx Substance Use: No - SURGICAL HISTORY Hx Surgeries: Yes Hx Angiogram: Yes (Lt Hrt Angiocardiogram 04/2014) Hx Cardiac Catheterization: Yes (Lt hrt Cardiac cath 04/2014) Hx Orthopedic Surgery: Yes (left wrist) Other/Comment: ABDOMINAL EXPLORITORY SX. - ANESTHESIA Hx Anesthesia: Yes Hx Anesthesia Reactions: No Hx Malignant Hyperthermia: No Meds Allergies/Adverse Reactions: Allergies Allergy/AdvReac Type Severity Reaction Status Date / Time acetaminophen [From Tylenol] Allergy Intermediate SWELLING Verified 03/17/17 14: 32 codeine Allergy Intermediate SWELLING Verified 03/17/17 14:32 Penicillins Allergy Intermediate SWELLING Verified 03/17/17 14:32 - Medications Medications: Current Medications Albuterol/Ipratropium (Duoneb 3 Mg/0.5 Mg (3 Ml) Ud) 3 ml INH RQ4 [place] Last Admin: 03/27/17 20:34 Dose: 3 ml Aztreonam 2 gm/ Sodium (Chloride) 100 mls @ 200 mls/hr IVPB Q8H [facility] Last Admin: 03/27/17 14:47 Dose: 200 mls/hr Vancomycin HCl 1 gm/ Sodium (Chloride) 250 mls @ 166.667 mls/hr IVPB Q12H [facility] Last Admin: 03/27/17 17:13 Dose: 166.667 mls/hr Dexmedetomidine HCl 200 mcg/ (Sodium Chloride) 50 mls @ 1.58 mls/hr IV TITR PRN ; Protocol; 0.2 MCG/KG/HR PRN Reason: Sedation Last Admin: 03/27/17 19:20 Dose: 0.2 mcg/kg/hr, 1.58 mls/hr Phenylephrine HCl 30 mg/ (Dextrose) 253 mls @ 10.12 mls/hr IV .Q24H PRN; Protocol; 20 MCG/MIN PRN Reason: TITRATE PER MD ORDER Insulin Aspart (Novolog) 0 unit SC ACHS [facility] PRN Reason: Protocol Last Admin: 03/27/17 17:21 Dose: Not Given Insulin Human Isoph/Insulin Regular (Novolin 70/30 (70/30 Units/Ml) 10 Ml) 10 units SC QAM [facility] Last Admin: 03/27/17 09:53 Dose: Not Given Insulin Human Isoph/Insulin Regular (Novolin 70/30 (70/30 Units/Ml) 10 Ml) 5 units SC HS [facility] Last Admin: 03/26/17 22:12 Dose: Not Given Magnesium Oxide (Mag-Ox) 800 mg PO BID [facility] Last Admin: 03/27/17 17:20 Dose: 800 mg Morphine Sulfate (Morphine) 1 mg IVP Q4H PRN PRN Reason: Pain, moderate (4-7) Last Admin: 03/26/17 13:54 Dose: 1 mg Nitrofurantoin Macrocrystals (Macrobid) 100 mg PO Q12H [facility] Last Admin: 03/27/17 13:50 Dose: 100 mg Ondansetron HCl (Zofran Inj) 4 mg IVP Q6H PRN PRN Reason: nausea Last Admin: 03/26/17 09:26 Dose: 4 mg Pantoprazole Sodium (Protonix Ec Tab) 40 mg PO DAILY [facility] Last Admin: 03/27/17 09:52 Dose: 40 mg Potassium Phos/Sodium Phos (Neutra-Phos) 1 pkt PO TID [facility] Last Admin: 03/27/17 17:20 Dose: 1 pkt Sodium Bicarbonate (Sodium Bicarbonate Tab) 650 mg PO BID [facility] Last Admin: 03/27/17 17:23 Dose: 650 mg Thiamine HCl (Vitamin B1 Tab) 100 mg PO DAILY [facility] Last Admin: 03/27/17 09:53 Dose: 100 mg Zolpidem Tartrate (Ambien) 5 mg PO HS PRN PRN Reason: Insomnia Last Admin: 03/26/17 22:19 Dose: 5 mg Physical Exam - Head Exam Head Exam: ATRAUMATIC - Eye Exam Eye Exam: Normal appearance - ENT Exam ENT Exam: Mucous Membranes Dry - Respiratory Exam Respiratory Exam: Decreased Breath Sounds - Cardiovascular Exam Cardiovascular Exam: +S1, +S2 - GI/Abdominal Exam GI & Abdominal Exam: Normal Bowel Sounds Results - Vital Signs Recent Vital Signs: Last Vital Signs Temp 100.5 F H 03/27/17 19:00 Pulse 135 H 03/27/17 19:00 Resp 20 03/27/17 19:00 BP 80/52 L 03/27/17 19:00 Pulse Ox 97 03/27/17 19:00 - Labs Result Diagrams: 03/27/17 20:28 03/26/17 07:08 Labs: Laboratory Results - last 24 hr 03/20/17 03/23/17 03/23/17 07:14 17:19 17:19 WBC RBC Hgb Hct MCV MCH MCHC RDW Plt Count MPV Neut % (Auto) Lymph % (Auto) [place] % (Auto) Eos % (Auto) Baso % (Auto) Neut # Lymph # [place] # Eos # Baso # POC Glucose (mg/dL) Peritoneal LDH Peritoneal Glucose 117 Peritoneal CEA 3 H Serum Immunofixation Detected H 03/23/17 03/26/17 03/27/17 17:19 21:07 06:50 WBC 10.3 RBC 3.15 L Hgb 11.9 Hct 35.1 MCV 111.5 H MCH 37.9 H MCHC 34.0 RDW 13.5 Plt Count 30 L* D MPV 12.7 H Neut % (Auto) 79.5 H Lymph % (Auto) 13.2 L [place] % (Auto) 6.2 Eos % (Auto) 0.2 Baso % (Auto) 0.9 Neut # 8.2 H Lymph # 1.4 [place] # 0.6 Eos # 0.0 Baso # 0.1 POC Glucose (mg/dL) 126 H Peritoneal LDH 19 Peritoneal Glucose Peritoneal CEA Serum Immunofixation 03/27/17 03/27/17 03/27/17 06:55 11:14 14:37 WBC RBC Hgb Hct MCV MCH MCHC RDW Plt Count MPV Neut % (Auto) Lymph % (Auto) [place] % (Auto) Eos % (Auto) Baso % (Auto) Neut # Lymph # [place] # Eos # Baso # POC Glucose (mg/dL) 112 H 127 H 88 Peritoneal LDH Peritoneal Glucose Peritoneal CEA Serum Immunofixation 03/27/17 03/27/17 03/27/17 15:39 19:18 20:25 WBC RBC Hgb Hct MCV MCH MCHC RDW Plt Count MPV Neut % (Auto) Lymph % (Auto) [place] % (Auto) Eos % (Auto) Baso % (Auto) Neut # Lymph # [place] # Eos # Baso # POC Glucose (mg/dL) 84 < 20 L* 199 H Peritoneal LDH Peritoneal Glucose Peritoneal CEA Serum Immunofixation 03/27/17 20:28 WBC 4.9 D RBC 2.14 L Hgb 8.0 L D Hct 24.5 L MCV 114.4 H D MCH 37.3 H MCHC 32.6 L RDW 14.4 Plt Count 9 L* D MPV 10.6 Neut % (Auto) 97.5 H Lymph % (Auto) 1.1 L [place] % (Auto) 0.5 Eos % (Auto) 0.6 Baso % (Auto) 0.3 Neut # 4.8 Lymph # 0.1 L [place] # 0.0 Eos # 0.0 Baso # 0.0 POC Glucose (mg/dL) Peritoneal LDH Peritoneal Glucose Peritoneal CEA Serum Immunofixation Assessment & Plan (1) Thrombocytopenia Assessment and Plan: chronic but declining from baseline ? sepsis ?medication will rule out DIC transfusion support of plt if < 10,000 will review peripheral smear Status: Acute (2) Coagulopathy Assessment and Plan: ? liver disease rule out DIC; will check fibrinogen Status: Acute (3) Anemia Assessment and Plan: mild will check ferritin, retic count, b12, folate, FOBT to further characterize Thank you for this interesting consult. Status: Acute
[2017-03-27 20:55] LABS: ALB/GLOB RATIO 0.7 (1.0-2.1); ALKALINE PHOSPHATASE 58 U/L (38-126); ALT/SGPT 41 U/L (9-52); AST/SGOT 73 U/L (14-36); BILIRUBIN,TOTAL 2.5 mg/dL (0.2-1.3); BLOOD UREA NITROGEN 19 mg/dL (7-17); CALCIUM 6.7 mg/dl (8.6-10.4); CARBON DIOXIDE 18 mmol/L (22-30); CHLORIDE 95 mmol/L (98-107); GFR AFRICAN-AMERICAN > 60; GLUCOSE,RANDOM 209 mg/dL (65-105); MAGNESIUM 1.2 mg/dL (1.6-2.3); PHOSPHOROUS 3.2 mg/dL (2.5-4.5); POTASSIUM 3.8 mmol/L (3.6-5.2); SODIUM 125 mmol/L (132-148)
[2017-03-27 21:16] LABS: ABG MECHANICAL RATE 14; ARTERIAL BLOOD GAS MODE PRVC; ARTERIAL BLOOD HGB O2 SAT 93.3 % (95.0-98.0); ATERIAL BLOOD GAS PEEP 5; CARBOXYHEMOGLOBIN 2.1 % (0.5-1.5); DRAW SITE RBA; HHB 3.7 % (0.0-5.0)
[2017-03-27] MEDS ORDERED: Midazolam 50 mg/10 ml 100 MG in Dextrose 5% In Water 80 ML IV SCH (21:30)
[2017-03-27] MEDS ORDERED: Iodixanol 320 MG/ML 100 ML BOTTLE IV ONE (21:37)
[2017-03-27] MEDS: Phenylephrine 30 MG in Dextrose 5% In Water 250 ML IV PRN (23:05)
[2017-03-27 23:43] LABS: MYELOCYTE 1 % (0-0); NEUTROPHIL 80 % (50-75); TOTAL CELLS COUNTED 100
--- NOTE | 2017-03-27 23:44 | CT ---
EXAM: CT Chest With Intravenous Contrast CLINICAL HISTORY: 61 years old, female; Pain; Abdominal pain and other: Bleeding; Chest pain and other: Bleeding; Additional info: Assess for bleeding TECHNIQUE: Axial computed tomography images of the chest with intravenous contrast. All CT scans at this facility use one or more dose reduction techniques, viz.: automated exposure control; ma/kV adjustment per patient size (including targeted exams where dose is matched to indication; i.e. head); or iterative reconstruction technique. Coronal and sagittal reformatted images were created and reviewed. CONTRAST: 100 mL of VISIPAQUE 320 administered intravenously. COMPARISON: Prior images are not available for review. FINDINGS: Tubes, lines and devices: An endotracheal tube is in place. Tip of endotracheal tube is at the level of the thoracic inlet. There is a right jugular catheter, tip in the low superior vena cava. Lungs and pleural spaces: Trachea distal to the tube and main bronchi are patent. There are moderately large bilateral pleural effusions. There is bilateral interstitial and airspace disease. There are atelectatic changes in both lower lobes. Heart: Heart size is normal. There is no pericardial effusion. Aorta is normal in caliber. There is no dissection. There is perfusion of the 3 arch vessels. There are vascular calcifications.Aorta and main pulmonary artery are normal in caliber. Mediastinum: The esophagus is distended with fluid and air. There are no pathologically enlarged mediastinal or hilar nodes. Bones/joints: Bony structures are osteopenic. There are degenerative changes. There are compression fractures T8 and T12. Motion limits evaluation of the ribs. Soft tissues: unremarkable Upper abdomen: Refer to follow report for abdominal findings IMPRESSION: Interval development of moderately large bilateral pleural effusions; pneumonia and/or edema with probable basilar atelectasis; slightly high position of endotracheal tube; esophagus distended with fluid and air EXAM: CT Abdomen and Pelvis With Intravenous Contrast EXAM DATE/TIME: 03/27/2017 8:48 PM CLINICAL HISTORY: 61 years old, female; Pain; Abdominal pain and other: Bleeding; Chest pain and other: Bleeding; Additional info: Assess for bleeding TECHNIQUE: Axial computed tomography images of the abdomen and pelvis with intravenous contrast. All CT scans at this facility use one or more dose reduction techniques, viz.: automated exposure control; ma/kV adjustment per patient size (including targeted exams where dose is matched to indication; i.e. head); or iterative reconstruction technique. Coronal and sagittal reformatted images were created and reviewed. CONTRAST: 100 mL of VISIPAQUE 320 administered intravenously. COMPARISON: CT - ABD PELVIS IV CONTRAST ONLY 2017-03-17 18:46 FINDINGS: Artifacts: Motion artifact degrades image quality. Lower thorax: Refer to prior report for chest findings ABDOMEN: Liver: There is fatty infiltration of the liver. There is prominence of left and caudate lobes. Gallbladder and bile ducts: Gallbladder is partially distended. Common duct is prominent. Pancreas:. Pancreas is atrophic. Pancreatic duct is dilated. There are coarse calcifications in the pancreas greatest in the pancreatic head. Spleen: There is a low attenuation lesion in the spleen difficult to characterize Adrenals: unremarkable Kidneys and ureters: unremarkable Stomach and bowel: Stomach is distended. There is dense radiopaque material in the stomach There is an air-fluid level. Duodenum is distended with fluid. There is antral and duodenal wall thickening. Rotation is normal. Mid small bowel is distended with fluid and air. Distal small bowel is decompressed. Terminal ileum is decompressed. Appendix is not identified. There is colonic wall thickening. Appendix: See stomach and bowel PELVIS: Bladder: Bladder is empty. There is a Gusman catheter. Reproductive: Uterus and adnexal structures are unremarkable. ABDOMEN and PELVIS: Intraperitoneal space: There is a moderately large amount of ascites in the abdomen and pelvis, increased since the prior study.There is no free air. Bones/joints: There is mild compression deformity of L4. Bony structures are osteopenic. There are degenerative changes. Soft tissues: There is body wall edema Vasculature: There are vascular calcifications. Lymph nodes: There is no pathologic adenopathy. IMPRESSION: Increasing ascites, no free air; markedly distended stomach with an air-fluid level in reflux of fluid into the distal esophagus; enterocolitis with probable ileus fatty liver, chronic calcific pancreatitis with pancreatic atrophy, unchanged; increasing anasarca Additional findings as described above.
[2017-03-28] MEDS: Sodium Bicarbonate 8.4% 75 MEQ in Sodium Chloride 0.45% 925 ML IV SCH ×4 (00:12→23:45)
--- NOTE | 2017-03-28 00:17 | PCM.SEPTIC ---
Sepsis Progress Note - Reassessment Type Date of Evaluation: 03/28/17 Time of Evaluation: 00:10 Reassessment Type: Non-invasive reassessment - Non Invasive Reassessment Were the most recent vital sign reviewed: Yes Vital Sign (Latest): Temp Pulse Resp BP Pulse Ox 100.5 F H 135 H 20 80/52 L 97 03/27/17 19:00 03/27/17 19:00 03/27/17 19:00 03/27/17 19:00 03/27/17 19:00 Cardiovascular: Yes: Regular Rate, Rhythm Respiratory: Yes: Normal Breath Sounds, Rhonchi Capillary Refill: Delayed Skin: Pale - Invasive Reassessment (complete 2 of 4) Was a Central Venous Pressure Measurement obtained within 6 Hours after the presentation of septic shock: No Was a central venous oxygen measurement obtained within 6 hours after the presentation of septic shock: No Was a bedside cardiovascular ultrasound performed within 6 hours after the presentation of septic shock: No Was a passive leg raise performed or was a fluid challenge performed within 6 hrs of the initial fluid bolus: No Fluid Challenge performed: Yes
[2017-03-28] MEDS: Albuterol-Ipratrop 3 mg / 0.5 (3 ml) UD INH SCH ×5 (03:20→20:38)
[2017-03-28 04:42] LABS: ABG MECHANICAL RATE 14; ARTERIAL BLOOD GAS MODE PRVC; ATERIAL BLOOD GAS PEEP 5; DRAW SITE LB
[2017-03-28 04:51] LABS: BASO % 0.1 % (0.0-2.0); EOS # 0.1 K/uL (0.0-0.7); EOS % 0.4 % (0.0-4.0); HEMATOCRIT 34.3 % (34.0-47.0); LYMPH # 0.6 K/uL (1.0-4.3); LYMPH % 2.9 % (20.0-40.0); MEAN CELL VOLUME 107.9 fL (81.0-99.0); MEAN CORPUSCULAR HEMOGLOBIN 35.1 pg (27.0-31.0); MEAN CORPUSCULAR HGB CONC 32.5 g/dL (33.0-37.0); MEAN PLATELET VOLUME 11.2 fL (7.2-11.7); MONO # 0.5 K/uL (0.0-0.8); MONO % 2.3 % (0.0-10.0); NRBC % 0.8 % (0.0-2.0); RED CELL DISTRIBUTION WIDTH 18.5 % (11.5-14.5); WHITE BLOOD COUNT 20.4 K/uL (4.8-10.8)
[2017-03-28 04:55] LABS: PLATELET COUNT 5 K/uL (130-400)
[2017-03-28 05:42] LABS: INR 2.5
[2017-03-28 05:52] LABS: ALB/GLOB RATIO 0.7 (1.0-2.1); ALKALINE PHOSPHATASE 49 U/L (38-126); ALT/SGPT 73 U/L (9-52); AST/SGOT 140 U/L (14-36); BILIRUBIN,TOTAL 4.3 mg/dL (0.2-1.3); BLOOD UREA NITROGEN 20 mg/dL (7-17); CALCIUM 6.9 mg/dl (8.6-10.4); CARBON DIOXIDE 20 mmol/L (22-30); CHLORIDE 94 mmol/L (98-107); GFR AFRICAN-AMERICAN > 60; GLUCOSE,RANDOM 80 mg/dL (65-105); POTASSIUM 3.8 mmol/L (3.6-5.2); SODIUM 126 mmol/L (132-148); TOTAL PROTEIN 3.7 g/dL (6.3-8.3)
[2017-03-28 06:11] LABS: FOLATE 4.9 ng/mL
[2017-03-28 06:15] LABS: NEUTROPHIL 69 % (50-75); TOTAL CELLS COUNTED 100
[2017-03-28] MEDS: Aztreonam 2 GM in Sodium Chloride 0.9% 100 ML IVPB SCH ×3 (07:05→23:05)
--- NOTE | 2017-03-28 07:32 | PN ---
LOCATION: [facility], bed A. SUBJECTIVE: This is a 61-year-old female, seen and examined in rounds without significant clinical changes, but appeared to be restless with period of mild shortness of breath, on BiPAP on and off. The entire chart is reviewed including, but not limited to the most recent lab and radiology study results, and today's lab showed normal hemoglobin and hematocrit, but thrombocytopenia was increased, blood glucose level to 127 with normal white blood cells. Chest x-ray showed evidence of possible ileus with patchy bilateral infiltrate and bilateral effusion. PHYSICAL EXAMINATION: GENERAL: A 61-year-old female. VITAL SIGNS: Afebrile with pulse of 94, respiratory rate 20 to 22, blood pressure of 110/74. HEENT: Showed pale, dry oral mucoid membrane. Nonicteric sclerae. LUNGS: Few scattered crepitation; decreased air entry at bases. HEART: Positive S1 and S2. ABDOMEN: Soft, bowel sounds are present with slight generalized tenderness. No mass or organomegaly. No rebound tenderness or guarding. EXTREMITIES: Without significant clubbing, cyanosis, or edema. NEUROLOGIC: No new reported neurological deficits, sensory or motor. The patient is still on BiPAP with intermittent period of mild abdominal pain and complained of lower extremity weakness and difficulty walking. IMPRESSION: 1. Pneumonia. 2. Pleural effusion. 3. Chronic alcoholism with alcoholic liver disease and portal hypertension as well as ascites. 4. Thrombocytopenia that to be secondary to above. 5. Malnutrition with hypoalbuminemia. SUGGESTIONS: 1. Agree with your plan. 2. Recurrent abdominal paracentesis. 3. Cancer markers including alpha-fetoprotein and CEA. 4. Further recommendation to follow. Wicho Potter MD cc: Wicho Potter MD
--- NOTE | 2017-03-28 07:49 | RAD ---
HISTORY: s/p intubation COMPARISON: Portable chest 03/27/2017 15:41 p.m.. FINDINGS: LUNGS: Use mixed alveolar and interstitial infiltrates are scattered bilaterally once again with improvement in aeration noted throughout status post endotracheal intubation with the tube terminating 3 cm above the gavin. Right center venous lines in place as well, by an internal jugular approach with tip terminating at the distal superior vena cava. PLEURA: No significant pleural effusion identified, no pneumothorax apparent. CARDIOVASCULAR: Normal. OSSEOUS STRUCTURES: No significant abnormalities. VISUALIZED UPPER ABDOMEN: Normal. OTHER FINDINGS: None. IMPRESSION: Persistent heterogeneous infiltrates are identified bilaterally though improved aeration is noted status post endotracheal intubation. Right center venous line in position. No pneumothorax.
--- NOTE | 2017-03-28 08:13 | RAD ---
PROCEDURE: CHEST RADIOGRAPH, 1 VIEW HISTORY: Intubation COMPARISON: Portable chest 03/19/2017. FINDINGS: Endotracheal tube is unchanged in position well as right center venous line. Ala a nasogastric tube is in place extending into the left upper quadrant abdomen with tip off the image inferiorly. LUNGS: Persistent interval heterogeneous mixed alveolar and interstitial infiltrates persist in a pattern that may represent early developing ARDS. Increased alveolar component is seen at the right base. PLEURA: No pneumothorax or pleural fluid seen. CARDIOVASCULAR: Normal. OSSEOUS STRUCTURES: No significant abnormalities. VISUALIZED UPPER ABDOMEN: Normal. OTHER FINDINGS: None. IMPRESSION: Mixed alveolar/ interstitial pneumonitis again seen diffusely with increased alveolar component in the right base. The pattern may reflect early ARDS. Clinically correlate further. Interval nasogastric tube placement is identified as described above with tip off the image.
[2017-03-28] MEDS: Phenylephrine 30 MG in Dextrose 5% In Water 250 ML IV PRN ×4 (08:17→21:18)
[2017-03-28 08:29] LABS: MAGNESIUM 1.2 mg/dL (1.6-2.3); PHOSPHOROUS 3.7 mg/dL (2.5-4.5)
[2017-03-28] MEDS: (Novolog) Insulin Aspart, Recombinant 100 u/ml 10 ml vial SC SCH ×3 (08:40→19:32)
--- NOTE | 2017-03-28 08:55 | PCM.URO ---
Urology Progress Note - General General: No Complaints, NPO (intubated) - Subjective Hematuria: No Fever & Chills: Yes (Jurv=331.6) - Objective Lab Studies: Reviewed Lab Results Last 24 Hours: Laboratory Results - last 24 hr 03/20/17 03/23/17 03/27/17 07:14 17:19 11:14 WBC RBC Hgb Hct MCV MCH MCHC RDW Plt Count MPV Neut % (Auto) Lymph % (Auto) [place] % (Auto) Eos % (Auto) Baso % (Auto) Neut # Lymph # [place] # Eos # Baso # Neutrophils % (Manual) Band Neutrophils % Lymphocytes % (Manual) Monocytes % (Manual) Myelocytes % Platelet Estimate Retic Count PT INR APTT Fibrinogen Puncture Site pCO2 pO2 HCO3 ABG pH ABG Total CO2 ABG O2 Saturation ABG Base Excess ABG Hemoglobin ABG Carboxyhemoglobin POC ABG HHb (Measured) ABG Methemoglobin Crescencio Test ABG Potassium A-a O2 Difference Respiratory Index Hgb O2 Saturation Glucose Lactate Vent Mode Mechanical Rate FiO2 Tidal Volume PEEP Crit Value Called To Crit Value Called By Crit Value Read Back Blood Gas Notified Time Sodium Potassium Chloride Carbon Dioxide Anion Gap BUN Creatinine Est GFR ( Amer) Est GFR (Non-Af Amer) POC Glucose (mg/dL) 127 H Random Glucose Lactic Acid Calcium Phosphorus Magnesium Ferritin Total Bilirubin AST ALT Alkaline Phosphatase Total Protein Albumin Globulin Albumin/Globulin Ratio Vitamin B12 Folate Arterial Blood Potassium Peritoneal CEA 3 H Serum Immunofixation Detected H Blood Type Antibody Screen Antibody Identification 03/27/17 03/27/17 03/27/17 14:37 15:39 19:18 WBC RBC Hgb Hct MCV MCH MCHC RDW Plt Count MPV Neut % (Auto) Lymph % (Auto) [place] % (Auto) Eos % (Auto) Baso % (Auto) Neut # Lymph # [place] # Eos # Baso # Neutrophils % (Manual) Band Neutrophils % Lymphocytes % (Manual) Monocytes % (Manual) Myelocytes % Platelet Estimate Retic Count PT INR APTT Fibrinogen Puncture Site pCO2 pO2 HCO3 ABG pH ABG Total CO2 ABG O2 Saturation ABG Base Excess ABG Hemoglobin ABG Carboxyhemoglobin POC ABG HHb (Measured) ABG Methemoglobin Crescencio Test ABG Potassium A-a O2 Difference Respiratory Index Hgb O2 Saturation Glucose Lactate Vent Mode Mechanical Rate FiO2 Tidal Volume PEEP Crit Value Called To Crit Value Called By Crit Value Read Back Blood Gas Notified Time Sodium Potassium Chloride Carbon Dioxide Anion Gap BUN Creatinine Est GFR ( Amer) Est GFR (Non-Af Amer) POC Glucose (mg/dL) 88 84 < 20 L* Random Glucose Lactic Acid Calcium Phosphorus Magnesium Ferritin Total Bilirubin AST ALT Alkaline Phosphatase Total Protein Albumin Globulin Albumin/Globulin Ratio Vitamin B12 Folate Arterial Blood Potassium Peritoneal CEA Serum Immunofixation Blood Type Antibody Screen Antibody Identification 03/27/17 03/27/17 03/27/17 20:25 20:28 20:28 WBC 4.9 D RBC 2.14 L Hgb 8.0 L D Hct 24.5 L MCV 114.4 H D MCH 37.3 H MCHC 32.6 L RDW 14.4 Plt Count 9 L* D MPV 10.6 Neut % (Auto) 97.5 H Lymph % (Auto) 1.1 L [place] % (Auto) 0.5 Eos % (Auto) 0.6 Baso % (Auto) 0.3 Neut # 4.8 Lymph # 0.1 L [place] # 0.0 Eos # 0.0 Baso # 0.0 Neutrophils % (Manual) 80 H Band Neutrophils % 14 H* Lymphocytes % (Manual) 3 L Monocytes % (Manual) 2 Myelocytes % 1 H Platelet Estimate Markedly decreased L Retic Count PT INR APTT Fibrinogen Puncture Site pCO2 pO2 HCO3 ABG pH ABG Total CO2 ABG O2 Saturation ABG Base Excess ABG Hemoglobin ABG Carboxyhemoglobin POC ABG HHb (Measured) ABG Methemoglobin Crescencio Test ABG Potassium A-a O2 Difference Respiratory Index Hgb O2 Saturation Glucose Lactate Vent Mode Mechanical Rate FiO2 Tidal Volume PEEP Crit Value Called To Crit Value Called By Crit Value Read Back Blood Gas Notified Time Sodium 125 L Potassium 3.8 Chloride 95 L Carbon Dioxide 18 L Anion Gap 15 BUN 19 H Creatinine 1.0 Est GFR ( Amer) > 60 Est GFR (Non-Af Amer) 57 POC Glucose (mg/dL) 199 H Random Glucose 209 H Lactic Acid Calcium 6.7 L Phosphorus 3.2 Magnesium 1.2 L Ferritin Total Bilirubin 2.5 H AST 73 H D ALT 41 Alkaline Phosphatase 58 Total Protein 3.0 L Albumin 1.2 L D Globulin 1.8 L Albumin/Globulin Ratio 0.7 L Vitamin B12 Folate Arterial Blood Potassium Peritoneal CEA Serum Immunofixation Blood Type Antibody Screen Antibody Identification 03/27/17 03/27/17 03/27/17 21:10 21:42 23:53 WBC RBC Hgb Hct MCV MCH MCHC RDW Plt Count MPV Neut % (Auto) Lymph % (Auto) [place] % (Auto) Eos % (Auto) Baso % (Auto) Neut # Lymph # [place] # Eos # Baso # Neutrophils % (Manual) Band Neutrophils % Lymphocytes % (Manual) Monocytes % (Manual) Myelocytes % Platelet Estimate Retic Count PT INR APTT Fibrinogen Puncture Site Rba pCO2 47 H pO2 70 L HCO3 18.3 L ABG pH 7.21 L ABG Total CO2 20.2 L ABG O2 Saturation 96.2 ABG Base Excess -8.5 L ABG Hemoglobin 7.6 L ABG Carboxyhemoglobin 2.1 H POC ABG HHb (Measured) 3.7 ABG Methemoglobin 1.0 Crescencio Test Na ABG Potassium A-a O2 Difference 584.0 Respiratory Index 8.3 Hgb O2 Saturation 93.3 L Glucose Lactate Vent Mode Prvc Mechanical Rate 14 FiO2 100.0 Tidal Volume 400 PEEP 5 Crit Value Called To Crit Value Called By Crit Value Read Back Blood Gas Notified Time Sodium Potassium Chloride Carbon Dioxide Anion Gap BUN Creatinine Est GFR ( Amer) Est GFR (Non-Af Amer) POC Glucose (mg/dL) 86 Random Glucose Lactic Acid Calcium Phosphorus Magnesium Ferritin Total Bilirubin AST ALT Alkaline Phosphatase Total Protein Albumin Globulin Albumin/Globulin Ratio Vitamin B12 Folate Arterial Blood Potassium Peritoneal CEA Serum Immunofixation Blood Type B POSITIVE Antibody Screen Positive Antibody Identification Anti E 03/28/17 03/28/17 03/28/17 00:17 04:35 04:41 WBC 20.4 H D RBC 3.18 L Hgb 11.2 D Hct 34.3 MCV 107.9 H D MCH 35.1 H MCHC 32.5 L RDW 18.5 H Plt Count 5 L* MPV 11.2 Neut % (Auto) 94.3 H Lymph % (Auto) 2.9 L [place] % (Auto) 2.3 Eos % (Auto) 0.4 Baso % (Auto) 0.1 Neut # 19.3 H Lymph # 0.6 L [place] # 0.5 Eos # 0.1 Baso # 0.0 Neutrophils % (Manual) 69 Band Neutrophils % 27 H* Lymphocytes % (Manual) 2 L Monocytes % (Manual) 2 Myelocytes % Platelet Estimate Markedly decreased L Retic Count 1.0 D PT INR APTT Fibrinogen Puncture Site Lb pCO2 42 pO2 87 HCO3 19.6 L ABG pH 7.28 L ABG Total CO2 21.0 L ABG O2 Saturation 98.8 H ABG Base Excess -6.8 L ABG Hemoglobin ABG Carboxyhemoglobin POC ABG HHb (Measured) ABG Methemoglobin Crescencio Test Na ABG Potassium 4.2 A-a O2 Difference 574.0 Respiratory Index 6.6 Hgb O2 Saturation Glucose 90 Lactate 6.4 H* Vent Mode Prvc Mechanical Rate 14 FiO2 100.0 Tidal Volume 400 PEEP 5 Crit Value Called To Kathie peters/rn Crit Value Called By Wilmer [email or web address]/rt Crit Value Read Back Y Blood Gas Notified Time 445 Sodium 129.0 L Potassium Chloride 99.0 Carbon Dioxide Anion Gap BUN Creatinine Est GFR ( Amer) Est GFR (Non-Af Amer) POC Glucose (mg/dL) Random Glucose Lactic Acid 7.9 H* Calcium Phosphorus Magnesium Ferritin Total Bilirubin AST ALT Alkaline Phosphatase Total Protein Albumin Globulin Albumin/Globulin Ratio Vitamin B12 Folate Arterial Blood Potassium 4.2 Peritoneal CEA Serum Immunofixation Blood Type Antibody Screen Antibody Identification 03/28/17 03/28/17 03/28/17 04:41 04:41 04:41 WBC RBC Hgb Hct MCV MCH MCHC RDW Plt Count MPV Neut % (Auto) Lymph % (Auto) [place] % (Auto) Eos % (Auto) Baso % (Auto) Neut # Lymph # [place] # Eos # Baso # Neutrophils % (Manual) Band Neutrophils % Lymphocytes % (Manual) Monocytes % (Manual) Myelocytes % Platelet Estimate Retic Count PT 29.5 H* INR 2.5 APTT 113 H* Fibrinogen 89 L Puncture Site pCO2 pO2 HCO3 ABG pH ABG Total CO2 ABG O2 Saturation ABG Base Excess ABG Hemoglobin ABG Carboxyhemoglobin POC ABG HHb (Measured) ABG Methemoglobin Crescencio Test ABG Potassium A-a O2 Difference Respiratory Index Hgb O2 Saturation Glucose Lactate Vent Mode Mechanical Rate FiO2 Tidal Volume PEEP Crit Value Called To Crit Value Called By Crit Value Read Back Blood Gas Notified Time Sodium 126 L Potassium 3.8 Chloride 94 L Carbon Dioxide 20 L Anion Gap 16 BUN 20 H Creatinine 1.1 Est GFR ( Amer) > 60 Est GFR (Non-Af Amer) 51 POC Glucose (mg/dL) Random Glucose 80 Lactic Acid Calcium 6.9 L Phosphorus Magnesium Ferritin 752.0 Total Bilirubin 4.3 H AST 140 H D ALT 73 H D Alkaline Phosphatase 49 Total Protein 3.7 L Albumin 1.5 L D Globulin 2.2 Albumin/Globulin Ratio 0.7 L Vitamin B12 > 1000 H Folate 4.9 Arterial Blood Potassium Peritoneal CEA Serum Immunofixation Blood Type Antibody Screen Antibody Identification 03/28/17 03/28/17 03/28/17 04:45 05:44 08:15 WBC RBC Hgb Hct MCV MCH MCHC RDW Plt Count MPV Neut % (Auto) Lymph % (Auto) [place] % (Auto) Eos % (Auto) Baso % (Auto) Neut # Lymph # [place] # Eos # Baso # Neutrophils % (Manual) Band Neutrophils % Lymphocytes % (Manual) Monocytes % (Manual) Myelocytes % Platelet Estimate Retic Count PT INR APTT Fibrinogen Puncture Site pCO2 pO2 HCO3 ABG pH ABG Total CO2 ABG O2 Saturation ABG Base Excess ABG Hemoglobin ABG Carboxyhemoglobin POC ABG HHb (Measured) ABG Methemoglobin Crescencio Test ABG Potassium A-a O2 Difference Respiratory Index Hgb O2 Saturation Glucose Lactate Vent Mode Mechanical Rate FiO2 Tidal Volume PEEP Crit Value Called To Crit Value Called By Crit Value Read Back Blood Gas Notified Time Sodium Potassium Chloride Carbon Dioxide Anion Gap BUN Creatinine Est GFR ( Amer) Est GFR (Non-Af Amer) POC Glucose (mg/dL) 94 Random Glucose Lactic Acid 6.4 H* Calcium Phosphorus 3.7 Magnesium 1.2 L Ferritin Total Bilirubin AST ALT Alkaline Phosphatase Total Protein Albumin Globulin Albumin/Globulin Ratio Vitamin B12 Folate Arterial Blood Potassium Peritoneal CEA Serum Immunofixation Blood Type Antibody Screen Antibody Identification Intake & Output: Intake & Output 03/27/17 03/28/17 03/28/17 18:59 06:59 18:59 Intake Total 490 2262.5 564.5 Output Total 200 Balance 490 2262.5 364.5 Intake: IV 127.5 383.5 Intake, IV Amount 50 1283.0 181 Right Forearm 50 Right Medial Port 1281.8 181 Internal Jugular Right Proximal Port 1.2 Internal Jugular Oral 440 Blood Product 852 Apheresis Plts Acda Lr 0 2nd Con Unit [id number] Red Blood Cells Cpd As1 325 Lr Unit [id number] Output: Urine 200 Urethral ([place]) 200 Other: # Voids Urethral ([place]) 2 Urine, Voided 2 # Bowel Movements 1 Vital Signs: Vital Signs - 24 hr 03/27/17 03/27/17 03/27/17 12:35 14:12 15:09 Temperature Pulse Rate 125 H 110 H Respiratory Rate Blood Pressure 144/86 111/74 O2 Sat by Pulse 94 L Oximetry 03/27/17 03/27/17 03/27/17 16:35 17:00 18:00 Temperature 100.6 F H 100.6 F H Pulse Rate 125 H 135 H 130 H Respiratory 28 H 21 Rate Blood Pressure 120/84 89/64 L O2 Sat by Pulse 84 L 98 Oximetry 03/27/17 03/27/17 03/28/17 19:00 23:05 00:13 Temperature 100.5 F H Pulse Rate 135 H 88 90 Respiratory 20 21 22 Rate Blood Pressure 80/52 L 48/31 L 58/34 L O2 Sat by Pulse 97 86 L 94 L Oximetry 03/28/17 03/28/17 03/28/17 01:05 01:20 01:35 Temperature 97.3 F L 97.2 F L 97.4 F L Pulse Rate 118 H 117 H 115 H Respiratory 30 H 32 H 29 H Rate Blood Pressure 105/69 89/60 L 140/112 H O2 Sat by Pulse Oximetry 03/28/17 03/28/17 03/28/17 02:05 04:00 04:53 Temperature 97.5 F L 97.3 F L 97.3 F L Pulse Rate 114 H 111 H 115 H Respiratory 32 H 27 H 33 H Rate Blood Pressure 148/116 H 98/52 L 97/63 L O2 Sat by Pulse Oximetry 03/28/17 03/28/17 03/28/17 06:00 08:17 08:18 Temperature 97.3 F L Pulse Rate 110 H 110 H Respiratory 26 H Rate Blood Pressure 91/49 L 91/40 L O2 Sat by Pulse 98 Oximetry Imaging Studies: Reviewed - Physical Exam Abdominal Exam: Soft, Non-Tender, Non-Distended Back: No CVA Tenderness Urinary Catheter Draining Well: Yes Urine Color: Dark Ruba - Plan Additional Information: Imp: sepsis. respiratory failure. ascites. alcoholic liver disease. uti. Discussed with ICU staff. - Date & Time of Note Date: 03/28/17 Time: 08:54
[2017-03-28] MEDS ORDERED: Albumin Human 25% (12.5 gm/50 ml) IV ONE ×2 (09:04→13:48)
[2017-03-28] MEDS ORDERED: Sodium Chloride 0.9% 500 ML IV SCH (09:15)
[2017-03-28] MEDS ORDERED: (Novolog) Insulin Aspart, Recombinant 100 u/ml 10 ml vial SC SCH (09:15)
[2017-03-28] MEDS: Magnesium Sulfate 1 gm in D5W 1 GM/100 ML BAG IVPB SCH ×2 (09:39→10:21)
[2017-03-28] MEDS ORDERED: Sodium Chloride 0.9% 500 ML IV ONE (10:08)
--- NOTE | 2017-03-28 10:31 | CP.CCUPN ---
Addendum entered and electronically signed by Mic Sanches DO 03/28/17 10:53 : Patient was transfused 1 packet of platelets overnight. Repeat CBC showed platelets of 5. Patient will be transfused one more unit of platelets this morning. Original Note: <Mic Sanches - Last Filed: 03/28/17 10:28> CCU Subjective - Physician Review Subjective (Free Text): PGY1 ICU Progress Note for Dr. Atkinson Patient seen and examined at bedside this morning. Patient intubated. ROS unobtainable. CCU Objective - Vital Signs / Intake & Output Vital Signs (Last 4 hours): Vital Signs Temp Pulse Resp BP Pulse Ox 03/28/17 09:00 100 H 22 67/38 L 100 03/28/17 08:45 97 H 25 H 68/34 L 100 03/28/17 08:30 97 H 25 H 98/52 L 100 03/28/17 08:18 110 H 91/40 L 03/28/17 08:17 110 H 26 H 91/49 L 98 03/28/17 08:15 107 H 25 H 91/49 L 100 03/28/17 08:00 97.5 F L 110 H 24 83/49 L 98 03/28/17 06:45 97.5 F L 115 H 32 H 176/135 H Intake and Output (Last 8hrs): Intake & Output 03/27/17 03/28/17 03/28/17 22:59 06:59 14:59 Intake Total 5.4 2263.1 1243.5 Output Total 200 Balance 5.4 2263.1 1043.5 Intake: IV 133.5 383.5 Intake, IV Amount 5.4 1277.6 658.0 Right Medial Port 4.8 [id number] Internal Jugular Right Proximal IJ 150 Right Proximal IJ 2 2 Right Proximal Port 0.6 0.6 75.0 Internal Jugular Blood Product 852 202 Apheresis Plts Acda Lr 0 202 2nd Con Unit [id number] Red Blood Cells Cpd As1 325 Lr Unit [id number] Output: Urine 200 Urethral (G[place]man) 200 - Physical Exam Mouth: Positive for: Other (intubated) Respiratory/Chest: Positive for: Rales, Rhonchi, Other (intubated). Negative for: Accessory Muscle Use Abdomen: Positive for: Other (+ fluid wave (ascites)) Neurological: Positive for: Other (intubated) Skin: Positive for: Warm, Dry Psychiatric: Positive for: Other (sedated. intubated) - Medications Active Medications: Active Medications Generic Name Dose Route Start Last Admin Trade Name Freq PRN Reason Stop Dose Admin Albuterol/Ipratropium 3 ml 03/25/17 20:30 03/28/17 08:12 Duoneb 3 Mg/0.5 Mg (3 Ml) Ud INH 3 ml RQ4 [place] Administration Aztreonam 2 gm/ Sodium 100 mls @ 200 mls/hr 03/27/17 15:00 03/28/17 07:05 Chloride IVPB 200 mls/hr Q8H [place] Administration Vancomycin HCl 1 gm/ Sodium 250 mls @ 166.667 mls/hr 03/27/17 17:00 03/28/17 10:20 Chloride IVPB 166.667 mls/hr Q12H [place] Administration Phenylephrine HCl 30 mg/ 253 mls @ 10.12 mls/hr 03/27/17 19:57 03/28/17 08:17 Dextrose IV 120 mcg/min .Q24H PRN 60.72 mls/hr TITRATE PER MD ORDER Administration Protocol 20 MCG/MIN Midazolam HCl 100 mg/ Dextrose 100 mls @ 0.63 mls/hr 03/27/17 21:30 03/28/17 01:00 IV 0 mg/kg/hr .Q24H [place] 0 mls/hr Protocol Titration 0.02 MG/KG/HR Sodium Bicarbonate 75 meq/ 1,000 mls @ 125 mls/hr 03/27/17 23:45 03/28/17 09: 33 Sodium Chloride IV 125 mls/hr .Q8H [place] Administration Norepinephrine Bitartrate 8 mg 258 mls @ 7.74 mls/hr 03/27/17 23:58 03/28/17 08:18 / Dextrose IV 15 mcg/min .Q24H PRN 29.02 mls/hr TITRATE PER MD ORDER Administration Protocol 4 MCG/MIN Sodium Chloride 500 mls @ 1,000 mls/hr 03/28/17 10:08 03/28/17 10:23 Sodium Chloride 0.9% IV 03/28/17 10:37 1,000 mls/hr .Q30M ONE Administration Insulin Aspart 0 unit 03/28/17 09:15 Novolog SC Q6H [facility] Protocol Morphine Sulfate 1 mg 03/23/17 18:26 03/26/17 13:54 Morphine IVP 1 mg Q4H PRN Administration Pain, moderate (4-7) Nitrofurantoin Macrocrystals 100 mg 03/26/17 13:15 03/28/17 01:15 Macrobid PO Not Given Q12H [facility] Pantoprazole Sodium 40 mg 03/28/17 09:30 03/28/17 09:39 Protonix Inj IVP 40 mg Q12H [place] Administration - Patient Studies Lab Studies: Microbiology Studies 03/26/17 22:15 Urine Culture - Final Urine Proteus Mirabilis 03/23/17 15:53 Gram Stain - Final Body Fluid - Abdominal Cavity Body Fluid Culture - Final No growth. Lab Studies 03/28/17 03/28/17 03/28/17 Range/Units 08:15 05:44 04:45 WBC (4.8-10.8) K/uL RBC (3.80-5.20) Mil/uL Hgb (11.0-16.0) g/dL Hct (34.0-47.0) % MCV (81.0-99.0) fL MCH (27.0-31.0) pg MCHC (33.0-37.0) g/dL RDW (11.5-14.5) % Plt Count (130-400) K/uL MPV (7.2-11.7) fL Neut % (Auto) (50.0-75.0) % Lymph % (Auto) (20.0-40.0) % [place] % (Auto) (0.0-10.0) % Eos % (Auto) (0.0-4.0) % Baso % (Auto) (0.0-2.0) % Neut # (1.8-7.0) K/uL Lymph # (1.0-4.3) K/uL [place] # (0.0-0.8) K/uL Eos # (0.0-0.7) K/uL Baso # (0.0-0.2) K/uL Neutrophils % (Manual) (50-75) % Band Neutrophils % (0-2) % Lymphocytes % (Manual) (20-40) % Monocytes % (Manual) (0-10) % Myelocytes % (0-0) % Platelet Estimate (NORMAL) Retic Count (0.5-1.5) % PT (9.7-12.2) SECONDS INR APTT (21-34) SECONDS Fibrinogen (200-400) mg/dL Puncture Site pCO2 (35-45) mm/Hg pO2 (80-100) mm/Hg HCO3 (21-28) mmol/L ABG pH (7.35-7.45) ABG Total CO2 (22-28) mmol/L ABG O2 Saturation (95-98) % ABG Base Excess (-2.0-3.0) mmol/L ABG Hemoglobin (11.7-17.4) g/dL ABG Carboxyhemoglobin (0.5-1.5) % POC ABG HHb (Measured) (0.0-5.0) % ABG Methemoglobin (0.0-3.0) % Crescencio Test ABG Potassium (3.6-5.2) mmol/L A-a O2 Difference mm/Hg Respiratory Index Hgb O2 Saturation (95.0-98.0) % Glucose (65-105) mg/dl Lactate (0.7-2.1) mmol/L Vent Mode Mechanical Rate FiO2 % Tidal Volume PEEP Crit Value Called To Crit Value Called By Crit Value Read Back Blood Gas Notified Time Sodium (132-148) mmol/L Potassium (3.6-5.2) mmol/L Chloride (98-107) mmol/L Carbon Dioxide (22-30) mmol/L Anion Gap (10-20) BUN (7-17) mg/dL Creatinine (0.7-1.2) mg/dL Est GFR ( Amer) Est GFR (Non-Af Amer) POC Glucose (mg/dL) 94 (65-110) mg/dL Random Glucose (65-105) mg/dL Lactic Acid 6.4 H* (0.7-2.1) mmol/L Calcium (8.6-10.4) mg/dl Phosphorus 3.7 (2.5-4.5) mg/dL Magnesium 1.2 L (1.6-2.3) mg/dL Ferritin ng/mL Total Bilirubin (0.2-1.3) mg/dL AST (14-36) U/L ALT (9-52) U/L Alkaline Phosphatase (38-126) U/L Total Protein (6.3-8.3) g/dL Albumin (3.5-5.0) g/dL Globulin (2.2-3.9) gm/dL Albumin/Globulin Ratio (1.0-2.1) Vitamin B12 (239-931) pg/mL Folate ng/mL Arterial Blood Potassium (3.6-5.2) mmol/L Peritoneal CEA (<2.0) ng/mL Blood Type Antibody Screen Antibody Identification 03/28/17 03/28/17 03/28/17 Range/Units 04:41 04:41 04:41 WBC (4.8-10.8) K/uL RBC (3.80-5.20) Mil/uL Hgb (11.0-16.0) g/dL Hct (34.0-47.0) % MCV (81.0-99.0) fL MCH (27.0-31.0) pg MCHC (33.0-37.0) g/dL RDW (11.5-14.5) % Plt Count (130-400) K/uL MPV (7.2-11.7) fL Neut % (Auto) (50.0-75.0) % Lymph % (Auto) (20.0-40.0) % [place] % (Auto) (0.0-10.0) % Eos % (Auto) (0.0-4.0) % Baso % (Auto) (0.0-2.0) % Neut # (1.8-7.0) K/uL Lymph # (1.0-4.3) K/uL [place] # (0.0-0.8) K/uL Eos # (0.0-0.7) K/uL Baso # (0.0-0.2) K/uL Neutrophils % (Manual) (50-75) % Band Neutrophils % (0-2) % Lymphocytes % (Manual) (20-40) % Monocytes % (Manual) (0-10) % Myelocytes % (0-0) % Platelet Estimate (NORMAL) Retic Count (0.5-1.5) % PT 29.5 H* (9.7-12.2) SECONDS INR 2.5 APTT 113 H* (21-34) SECONDS Fibrinogen 89 L (200-400) mg/dL Puncture Site pCO2 (35-45) mm/Hg pO2 (80-100) mm/Hg HCO3 (21-28) mmol/L ABG pH (7.35-7.45) ABG Total CO2 (22-28) mmol/L ABG O2 Saturation (95-98) % ABG Base Excess (-2.0-3.0) mmol/L ABG Hemoglobin (11.7-17.4) g/dL ABG Carboxyhemoglobin (0.5-1.5) % POC ABG HHb (Measured) (0.0-5.0) % ABG Methemoglobin (0.0-3.0) % Crescencio Test ABG Potassium (3.6-5.2) mmol/L A-a O2 Difference mm/Hg Respiratory Index Hgb O2 Saturation (95.0-98.0) % Glucose (65-105) mg/dl Lactate (0.7-2.1) mmol/L Vent Mode Mechanical Rate FiO2 % Tidal Volume PEEP Crit Value Called To Crit Value Called By Crit Value Read Back Blood Gas Notified Time Sodium 126 L (132-148) mmol/L Potassium 3.8 (3.6-5.2) mmol/L Chloride 94 L (98-107) mmol/L Carbon Dioxide 20 L (22-30) mmol/L Anion Gap 16 (10-20) BUN 20 H (7-17) mg/dL Creatinine 1.1 (0.7-1.2) mg/dL Est GFR ( Amer) > 60 Est GFR (Non-Af Amer) 51 POC Glucose (mg/dL) (65-110) mg/dL Random Glucose 80 (65-105) mg/dL Lactic Acid (0.7-2.1) mmol/L Calcium 6.9 L (8.6-10.4) mg/dl Phosphorus (2.5-4.5) mg/dL Magnesium (1.6-2.3) mg/dL Ferritin 752.0 ng/mL Total Bilirubin 4.3 H (0.2-1.3) mg/dL AST 140 H D (14-36) U/L ALT 73 H D (9-52) U/L Alkaline Phosphatase 49 (38-126) U/L Total Protein 3.7 L (6.3-8.3) g/dL Albumin 1.5 L D (3.5-5.0) g/dL Globulin 2.2 (2.2-3.9) gm/dL Albumin/Globulin Ratio 0.7 L (1.0-2.1) Vitamin B12 > 1000 H (239-931) pg/mL Folate 4.9 ng/mL Arterial Blood Potassium (3.6-5.2) mmol/L Peritoneal CEA (<2.0) ng/mL Blood Type Antibody Screen Antibody Identification 03/28/17 03/28/17 03/28/17 Range/Units 04:41 04:35 00:17 WBC 20.4 H D (4.8-10.8) K/uL RBC 3.18 L (3.80-5.20) Mil/uL Hgb 11.2 D (11.0-16.0) g/dL Hct 34.3 (34.0-47.0) % MCV 107.9 H D (81.0-99.0) fL MCH 35.1 H (27.0-31.0) pg MCHC 32.5 L (33.0-37.0) g/dL RDW 18.5 H (11.5-14.5) % Plt Count 5 L* (130-400) K/uL MPV 11.2 (7.2-11.7) fL Neut % (Auto) 94.3 H (50.0-75.0) % Lymph % (Auto) 2.9 L (20.0-40.0) % [place] % (Auto) 2.3 (0.0-10.0) % Eos % (Auto) 0.4 (0.0-4.0) % Baso % (Auto) 0.1 (0.0-2.0) % Neut # 19.3 H (1.8-7.0) K/uL Lymph # 0.6 L (1.0-4.3) K/uL [place] # 0.5 (0.0-0.8) K/uL Eos # 0.1 (0.0-0.7) K/uL Baso # 0.0 (0.0-0.2) K/uL Neutrophils % (Manual) 69 (50-75) % Band Neutrophils % 27 H* (0-2) % Lymphocytes % (Manual) 2 L (20-40) % Monocytes % (Manual) 2 (0-10) % Myelocytes % (0-0) % Platelet Estimate Markedly decreased L (NORMAL) Retic Count 1.0 D (0.5-1.5) % PT (9.7-12.2) SECONDS INR APTT (21-34) SECONDS Fibrinogen (200-400) mg/dL Puncture Site Lb pCO2 42 (35-45) mm/Hg pO2 87 (80-100) mm/Hg HCO3 19.6 L (21-28) mmol/L ABG pH 7.28 L (7.35-7.45) ABG Total CO2 21.0 L (22-28) mmol/L ABG O2 Saturation 98.8 H (95-98) % ABG Base Excess -6.8 L (-2.0-3.0) mmol/L ABG Hemoglobin (11.7-17.4) g/dL ABG Carboxyhemoglobin (0.5-1.5) % POC ABG HHb (Measured) (0.0-5.0) % ABG Methemoglobin (0.0-3.0) % Crescencio Test Na ABG Potassium 4.2 (3.6-5.2) mmol/L A-a O2 Difference 574.0 mm/Hg Respiratory Index 6.6 Hgb O2 Saturation (95.0-98.0) % Glucose 90 (65-105) mg/dl Lactate 6.4 H* (0.7-2.1) mmol/L Vent Mode Prvc Mechanical Rate 14 FiO2 100.0 % Tidal Volume 400 PEEP 5 Crit Value Called To Kathie peters/rn Crit Value Called By Wilmer almaguer/rt Crit Value Read Back Y Blood Gas Notified Time 445 Sodium 129.0 L (132-148) mmol/L Potassium (3.6-5.2) mmol/L Chloride 99.0 (98-107) mmol/L Carbon Dioxide (22-30) mmol/L Anion Gap (10-20) BUN (7-17) mg/dL Creatinine (0.7-1.2) mg/dL Est GFR ( Amer) Est GFR (Non-Af Amer) POC Glucose (mg/dL) (65-110) mg/dL Random Glucose (65-105) mg/dL Lactic Acid 7.9 H* (0.7-2.1) mmol/L Calcium (8.6-10.4) mg/dl Phosphorus (2.5-4.5) mg/dL Magnesium (1.6-2.3) mg/dL Ferritin ng/mL Total Bilirubin (0.2-1.3) mg/dL AST (14-36) U/L ALT (9-52) U/L Alkaline Phosphatase (38-126) U/L Total Protein (6.3-8.3) g/dL Albumin (3.5-5.0) g/dL Globulin (2.2-3.9) gm/dL Albumin/Globulin Ratio (1.0-2.1) Vitamin B12 (239-931) pg/mL Folate ng/mL Arterial Blood Potassium 4.2 (3.6-5.2) mmol/L Peritoneal CEA (<2.0) ng/mL Blood Type Antibody Screen Antibody Identification 03/27/17 03/27/17 03/27/17 Range/Units 23:53 21:42 21:10 WBC (4.8-10.8) K/uL RBC (3.80-5.20) Mil/uL Hgb (11.0-16.0) g/dL Hct (34.0-47.0) % MCV (81.0-99.0) fL MCH (27.0-31.0) pg MCHC (33.0-37.0) g/dL RDW (11.5-14.5) % Plt Count (130-400) K/uL MPV (7.2-11.7) fL Neut % (Auto) (50.0-75.0) % Lymph % (Auto) (20.0-40.0) % [place] % (Auto) (0.0-10.0) % Eos % (Auto) (0.0-4.0) % Baso % (Auto) (0.0-2.0) % Neut # (1.8-7.0) K/uL Lymph # (1.0-4.3) K/uL [place] # (0.0-0.8) K/uL Eos # (0.0-0.7) K/uL Baso # (0.0-0.2) K/uL Neutrophils % (Manual) (50-75) % Band Neutrophils % (0-2) % Lymphocytes % (Manual) (20-40) % Monocytes % (Manual) (0-10) % Myelocytes % (0-0) % Platelet Estimate (NORMAL) Retic Count (0.5-1.5) % PT (9.7-12.2) SECONDS INR APTT (21-34) SECONDS Fibrinogen (200-400) mg/dL Puncture Site Rba pCO2 47 H (35-45) mm/Hg pO2 70 L (80-100) mm/Hg HCO3 18.3 L (21-28) mmol/L ABG pH 7.21 L (7.35-7.45) ABG Total CO2 20.2 L (22-28) mmol/L ABG O2 Saturation 96.2 (95-98) % ABG Base Excess -8.5 L (-2.0-3.0) mmol/L ABG Hemoglobin 7.6 L (11.7-17.4) g/dL ABG Carboxyhemoglobin 2.1 H (0.5-1.5) % POC ABG HHb (Measured) 3.7 (0.0-5.0) % ABG Methemoglobin 1.0 (0.0-3.0) % Crescencio Test Na ABG Potassium (3.6-5.2) mmol/L A-a O2 Difference 584.0 mm/Hg Respiratory Index 8.3 Hgb O2 Saturation 93.3 L (95.0-98.0) % Glucose (65-105) mg/dl Lactate (0.7-2.1) mmol/L Vent Mode Prvc Mechanical Rate 14 FiO2 100.0 % Tidal Volume 400 PEEP 5 Crit Value Called To Crit Value Called By Crit Value Read Back Blood Gas Notified Time Sodium (132-148) mmol/L Potassium (3.6-5.2) mmol/L Chloride (98-107) mmol/L Carbon Dioxide (22-30) mmol/L Anion Gap (10-20) BUN (7-17) mg/dL Creatinine (0.7-1.2) mg/dL Est GFR ( Amer) Est GFR (Non-Af Amer) POC Glucose (mg/dL) 86 (65-110) mg/dL Random Glucose (65-105) mg/dL Lactic Acid (0.7-2.1) mmol/L Calcium (8.6-10.4) mg/dl Phosphorus (2.5-4.5) mg/dL Magnesium (1.6-2.3) mg/dL Ferritin ng/mL Total Bilirubin (0.2-1.3) mg/dL AST (14-36) U/L ALT (9-52) U/L Alkaline Phosphatase (38-126) U/L Total Protein (6.3-8.3) g/dL Albumin (3.5-5.0) g/dL Globulin (2.2-3.9) gm/dL Albumin/Globulin Ratio (1.0-2.1) Vitamin B12 (239-931) pg/mL Folate ng/mL Arterial Blood Potassium (3.6-5.2) mmol/L Peritoneal CEA (<2.0) ng/mL Blood Type B POSITIVE Antibody Screen Positive Antibody Identification Anti E 03/27/17 03/27/17 03/27/17 Range/Units 20:28 20:28 20:25 WBC 4.9 D (4.8-10.8) K/uL RBC 2.14 L (3.80-5.20) Mil/uL Hgb 8.0 L D (11.0-16.0) g/dL Hct 24.5 L (34.0-47.0) % MCV 114.4 H D (81.0-99.0) fL MCH 37.3 H (27.0-31.0) pg MCHC 32.6 L (33.0-37.0) g/dL RDW 14.4 (11.5-14.5) % Plt Count 9 L* D (130-400) K/uL MPV 10.6 (7.2-11.7) fL Neut % (Auto) 97.5 H (50.0-75.0) % Lymph % (Auto) 1.1 L (20.0-40.0) % [place] % (Auto) 0.5 (0.0-10.0) % Eos % (Auto) 0.6 (0.0-4.0) % Baso % (Auto) 0.3 (0.0-2.0) % Neut # 4.8 (1.8-7.0) K/uL Lymph # 0.1 L (1.0-4.3) K/uL [place] # 0.0 (0.0-0.8) K/uL Eos # 0.0 (0.0-0.7) K/uL Baso # 0.0 (0.0-0.2) K/uL Neutrophils % (Manual) 80 H (50-75) % Band Neutrophils % 14 H* (0-2) % Lymphocytes % (Manual) 3 L (20-40) % Monocytes % (Manual) 2 (0-10) % Myelocytes % 1 H (0-0) % Platelet Estimate Markedly decreased L (NORMAL) Retic Count (0.5-1.5) % PT (9.7-12.2) SECONDS INR APTT (21-34) SECONDS Fibrinogen (200-400) mg/dL Puncture Site pCO2 (35-45) mm/Hg pO2 (80-100) mm/Hg HCO3 (21-28) mmol/L ABG pH (7.35-7.45) ABG Total CO2 (22-28) mmol/L ABG O2 Saturation (95-98) % ABG Base Excess (-2.0-3.0) mmol/L ABG Hemoglobin (11.7-17.4) g/dL ABG Carboxyhemoglobin (0.5-1.5) % POC ABG HHb (Measured) (0.0-5.0) % ABG Methemoglobin (0.0-3.0) % Crescencio Test ABG Potassium (3.6-5.2) mmol/L A-a O2 Difference mm/Hg Respiratory Index Hgb O2 Saturation (95.0-98.0) % Glucose (65-105) mg/dl Lactate (0.7-2.1) mmol/L Vent Mode Mechanical Rate FiO2 % Tidal Volume PEEP Crit Value Called To Crit Value Called By Crit Value Read Back Blood Gas Notified Time Sodium 125 L (132-148) mmol/L Potassium 3.8 (3.6-5.2) mmol/L Chloride 95 L (98-107) mmol/L Carbon Dioxide 18 L (22-30) mmol/L Anion Gap 15 (10-20) BUN 19 H (7-17) mg/dL Creatinine 1.0 (0.7-1.2) mg/dL Est GFR ( Amer) > 60 Est GFR (Non-Af Amer) 57 POC Glucose (mg/dL) 199 H (65-110) mg/dL Random Glucose 209 H (65-105) mg/dL Lactic Acid (0.7-2.1) mmol/L Calcium 6.7 L (8.6-10.4) mg/dl Phosphorus 3.2 (2.5-4.5) mg/dL Magnesium 1.2 L (1.6-2.3) mg/dL Ferritin ng/mL Total Bilirubin 2.5 H (0.2-1.3) mg/dL AST 73 H D (14-36) U/L ALT 41 (9-52) U/L Alkaline Phosphatase 58 (38-126) U/L Total Protein 3.0 L (6.3-8.3) g/dL Albumin 1.2 L D (3.5-5.0) g/dL Globulin 1.8 L (2.2-3.9) gm/dL Albumin/Globulin Ratio 0.7 L (1.0-2.1) Vitamin B12 (239-931) pg/mL Folate ng/mL Arterial Blood Potassium (3.6-5.2) mmol/L Peritoneal CEA (<2.0) ng/mL Blood Type Antibody Screen Antibody Identification 03/27/17 03/27/17 03/27/17 Range/Units 19:18 15:39 14:37 WBC (4.8-10.8) K/uL RBC (3.80-5.20) Mil/uL Hgb (11.0-16.0) g/dL Hct (34.0-47.0) % MCV (81.0-99.0) fL MCH (27.0-31.0) pg MCHC (33.0-37.0) g/dL RDW (11.5-14.5) % Plt Count (130-400) K/uL MPV (7.2-11.7) fL Neut % (Auto) (50.0-75.0) % Lymph % (Auto) (20.0-40.0) % [place] % (Auto) (0.0-10.0) % Eos % (Auto) (0.0-4.0) % Baso % (Auto) (0.0-2.0) % Neut # (1.8-7.0) K/uL Lymph # (1.0-4.3) K/uL [place] # (0.0-0.8) K/uL Eos # (0.0-0.7) K/uL Baso # (0.0-0.2) K/uL Neutrophils % (Manual) (50-75) % Band Neutrophils % (0-2) % Lymphocytes % (Manual) (20-40) % Monocytes % (Manual) (0-10) % Myelocytes % (0-0) % Platelet Estimate (NORMAL) Retic Count (0.5-1.5) % PT (9.7-12.2) SECONDS INR APTT (21-34) SECONDS Fibrinogen (200-400) mg/dL Puncture Site pCO2 (35-45) mm/Hg pO2 (80-100) mm/Hg HCO3 (21-28) mmol/L ABG pH (7.35-7.45) ABG Total CO2 (22-28) mmol/L ABG O2 Saturation (95-98) % ABG Base Excess (-2.0-3.0) mmol/L ABG Hemoglobin (11.7-17.4) g/dL ABG Carboxyhemoglobin (0.5-1.5) % POC ABG HHb (Measured) (0.0-5.0) % ABG Methemoglobin (0.0-3.0) % Crescencio Test ABG Potassium (3.6-5.2) mmol/L A-a O2 Difference mm/Hg Respiratory Index Hgb O2 Saturation (95.0-98.0) % Glucose (65-105) mg/dl Lactate (0.7-2.1) mmol/L Vent Mode Mechanical Rate FiO2 % Tidal Volume PEEP Crit Value Called To Crit Value Called By Crit Value Read Back Blood Gas Notified Time Sodium (132-148) mmol/L Potassium (3.6-5.2) mmol/L Chloride (98-107) mmol/L Carbon Dioxide (22-30) mmol/L Anion Gap (10-20) BUN (7-17) mg/dL Creatinine (0.7-1.2) mg/dL Est GFR ( Amer) Est GFR (Non-Af Amer) POC Glucose (mg/dL) < 20 L* 84 88 (65-110) mg/dL Random Glucose (65-105) mg/dL Lactic Acid (0.7-2.1) mmol/L Calcium (8.6-10.4) mg/dl Phosphorus (2.5-4.5) mg/dL Magnesium (1.6-2.3) mg/dL Ferritin ng/mL Total Bilirubin (0.2-1.3) mg/dL AST (14-36) U/L ALT (9-52) U/L Alkaline Phosphatase (38-126) U/L Total Protein (6.3-8.3) g/dL Albumin (3.5-5.0) g/dL Globulin (2.2-3.9) gm/dL Albumin/Globulin Ratio (1.0-2.1) Vitamin B12 (239-931) pg/mL Folate ng/mL Arterial Blood Potassium (3.6-5.2) mmol/L Peritoneal CEA (<2.0) ng/mL Blood Type Antibody Screen Antibody Identification 03/27/17 03/23/17 Range/Units 11:14 17:19 WBC (4.8-10.8) K/uL RBC (3.80-5.20) Mil/uL Hgb (11.0-16.0) g/dL Hct (34.0-47.0) % MCV (81.0-99.0) fL MCH (27.0-31.0) pg MCHC (33.0-37.0) g/dL RDW (11.5-14.5) % Plt Count (130-400) K/uL MPV (7.2-11.7) fL Neut % (Auto) (50.0-75.0) % Lymph % (Auto) (20.0-40.0) % [place] % (Auto) (0.0-10.0) % Eos % (Auto) (0.0-4.0) % Baso % (Auto) (0.0-2.0) % Neut # (1.8-7.0) K/uL Lymph # (1.0-4.3) K/uL [place] # (0.0-0.8) K/uL Eos # (0.0-0.7) K/uL Baso # (0.0-0.2) K/uL Neutrophils % (Manual) (50-75) % Band Neutrophils % (0-2) % Lymphocytes % (Manual) (20-40) % Monocytes % (Manual) (0-10) % Myelocytes % (0-0) % Platelet Estimate (NORMAL) Retic Count (0.5-1.5) % PT (9.7-12.2) SECONDS INR APTT (21-34) SECONDS Fibrinogen (200-400) mg/dL Puncture Site pCO2 (35-45) mm/Hg pO2 (80-100) mm/Hg HCO3 (21-28) mmol/L ABG pH (7.35-7.45) ABG Total CO2 (22-28) mmol/L ABG O2 Saturation (95-98) % ABG Base Excess (-2.0-3.0) mmol/L ABG Hemoglobin (11.7-17.4) g/dL ABG Carboxyhemoglobin (0.5-1.5) % POC ABG HHb (Measured) (0.0-5.0) % ABG Methemoglobin (0.0-3.0) % Crescencio Test ABG Potassium (3.6-5.2) mmol/L A-a O2 Difference mm/Hg Respiratory Index Hgb O2 Saturation (95.0-98.0) % Glucose (65-105) mg/dl Lactate (0.7-2.1) mmol/L Vent Mode Mechanical Rate FiO2 % Tidal Volume PEEP Crit Value Called To Crit Value Called By Crit Value Read Back Blood Gas Notified Time Sodium (132-148) mmol/L Potassium (3.6-5.2) mmol/L Chloride (98-107) mmol/L Carbon Dioxide (22-30) mmol/L Anion Gap (10-20) BUN (7-17) mg/dL Creatinine (0.7-1.2) mg/dL Est GFR ( Amer) Est GFR (Non-Af Amer) POC Glucose (mg/dL) 127 H (65-110) mg/dL Random Glucose (65-105) mg/dL Lactic Acid (0.7-2.1) mmol/L Calcium (8.6-10.4) mg/dl Phosphorus (2.5-4.5) mg/dL Magnesium (1.6-2.3) mg/dL Ferritin ng/mL Total Bilirubin (0.2-1.3) mg/dL AST (14-36) U/L ALT (9-52) U/L Alkaline Phosphatase (38-126) U/L Total Protein (6.3-8.3) g/dL Albumin (3.5-5.0) g/dL Globulin (2.2-3.9) gm/dL Albumin/Globulin Ratio (1.0-2.1) Vitamin B12 (239-931) pg/mL Folate ng/mL Arterial Blood Potassium (3.6-5.2) mmol/L Peritoneal CEA 3 H (<2.0) ng/mL Blood Type Antibody Screen Antibody Identification Laboratory Results - last 24 hr 03/23/17 03/27/17 03/27/17 17:19 11:14 14:37 WBC RBC Hgb Hct MCV MCH MCHC RDW Plt Count MPV Neut % (Auto) Lymph % (Auto) [place] % (Auto) Eos % (Auto) Baso % (Auto) Neut # Lymph # [place] # Eos # Baso # Neutrophils % (Manual) Band Neutrophils % Lymphocytes % (Manual) Monocytes % (Manual) Myelocytes % Platelet Estimate Retic Count PT INR APTT Fibrinogen Puncture Site pCO2 pO2 HCO3 ABG pH ABG Total CO2 ABG O2 Saturation ABG Base Excess ABG Hemoglobin ABG Carboxyhemoglobin POC ABG HHb (Measured) ABG Methemoglobin Crescencio Test ABG Potassium A-a O2 Difference Respiratory Index Hgb O2 Saturation Glucose Lactate Vent Mode Mechanical Rate FiO2 Tidal Volume PEEP Crit Value Called To Crit Value Called By Crit Value Read Back Blood Gas Notified Time Sodium Potassium Chloride Carbon Dioxide Anion Gap BUN Creatinine Est GFR ( Amer) Est GFR (Non-Af Amer) POC Glucose (mg/dL) 127 H 88 Random Glucose Lactic Acid Calcium Phosphorus Magnesium Ferritin Total Bilirubin AST ALT Alkaline Phosphatase Total Protein Albumin Globulin Albumin/Globulin Ratio Vitamin B12 Folate Arterial Blood Potassium Peritoneal CEA 3 H Blood Type Antibody Screen Antibody Identification 03/27/17 03/27/17 03/27/17 15:39 19:18 20:25 WBC RBC Hgb Hct MCV MCH MCHC RDW Plt Count MPV Neut % (Auto) Lymph % (Auto) [place] % (Auto) Eos % (Auto) Baso % (Auto) Neut # Lymph # [place] # Eos # Baso # Neutrophils % (Manual) Band Neutrophils % Lymphocytes % (Manual) Monocytes % (Manual) Myelocytes % Platelet Estimate Retic Count PT INR APTT Fibrinogen Puncture Site pCO2 pO2 HCO3 ABG pH ABG Total CO2 ABG O2 Saturation ABG Base Excess ABG Hemoglobin ABG Carboxyhemoglobin POC ABG HHb (Measured) ABG Methemoglobin Crescencio Test ABG Potassium A-a O2 Difference Respiratory Index Hgb O2 Saturation Glucose Lactate Vent Mode Mechanical Rate FiO2 Tidal Volume PEEP Crit Value Called To Crit Value Called By Crit Value Read Back Blood Gas Notified Time Sodium Potassium Chloride Carbon Dioxide Anion Gap BUN Creatinine Est GFR ( Amer) Est GFR (Non-Af Amer) POC Glucose (mg/dL) 84 < 20 L* 199 H Random Glucose Lactic Acid Calcium Phosphorus Magnesium Ferritin Total Bilirubin AST ALT Alkaline Phosphatase Total Protein Albumin Globulin Albumin/Globulin Ratio Vitamin B12 Folate Arterial Blood Potassium Peritoneal CEA Blood Type Antibody Screen Antibody Identification 03/27/17 03/27/17 03/27/17 20:28 20:28 21:10 WBC 4.9 D RBC 2.14 L Hgb 8.0 L D Hct 24.5 L MCV 114.4 H D MCH 37.3 H MCHC 32.6 L RDW 14.4 Plt Count 9 L* D MPV 10.6 Neut % (Auto) 97.5 H Lymph % (Auto) 1.1 L [place] % (Auto) 0.5 Eos % (Auto) 0.6 Baso % (Auto) 0.3 Neut # 4.8 Lymph # 0.1 L [place] # 0.0 Eos # 0.0 Baso # 0.0 Neutrophils % (Manual) 80 H Band Neutrophils % 14 H* Lymphocytes % (Manual) 3 L Monocytes % (Manual) 2 Myelocytes % 1 H Platelet Estimate Markedly decreased L Retic Count PT INR APTT Fibrinogen Puncture Site Rba pCO2 47 H pO2 70 L HCO3 18.3 L ABG pH 7.21 L ABG Total CO2 20.2 L ABG O2 Saturation 96.2 ABG Base Excess -8.5 L ABG Hemoglobin 7.6 L ABG Carboxyhemoglobin 2.1 H POC ABG HHb (Measured) 3.7 ABG Methemoglobin 1.0 Crescencio Test Na ABG Potassium A-a O2 Difference 584.0 Respiratory Index 8.3 Hgb O2 Saturation 93.3 L Glucose Lactate Vent Mode Prvc Mechanical Rate 14 FiO2 100.0 Tidal Volume 400 PEEP 5 Crit Value Called To Crit Value Called By Crit Value Read Back Blood Gas Notified Time Sodium 125 L Potassium 3.8 Chloride 95 L Carbon Dioxide 18 L Anion Gap 15 BUN 19 H Creatinine 1.0 Est GFR ( Amer) > 60 Est GFR (Non-Af Amer) 57 POC Glucose (mg/dL) Random Glucose 209 H Lactic Acid Calcium 6.7 L Phosphorus 3.2 Magnesium 1.2 L Ferritin Total Bilirubin 2.5 H AST 73 H D ALT 41 Alkaline Phosphatase 58 Total Protein 3.0 L Albumin 1.2 L D Globulin 1.8 L Albumin/Globulin Ratio 0.7 L Vitamin B12 Folate Arterial Blood Potassium Peritoneal CEA Blood Type Antibody Screen Antibody Identification 03/27/17 03/27/17 03/28/17 21:42 23:53 00:17 WBC RBC Hgb Hct MCV MCH MCHC RDW Plt Count MPV Neut % (Auto) Lymph % (Auto) [place] % (Auto) Eos % (Auto) Baso % (Auto) Neut # Lymph # [place] # Eos # Baso # Neutrophils % (Manual) Band Neutrophils % Lymphocytes % (Manual) Monocytes % (Manual) Myelocytes % Platelet Estimate Retic Count PT INR APTT Fibrinogen Puncture Site pCO2 pO2 HCO3 ABG pH ABG Total CO2 ABG O2 Saturation ABG Base Excess ABG Hemoglobin ABG Carboxyhemoglobin POC ABG HHb (Measured) ABG Methemoglobin Crescencio Test ABG Potassium A-a O2 Difference Respiratory Index Hgb O2 Saturation Glucose Lactate Vent Mode Mechanical Rate FiO2 Tidal Volume PEEP Crit Value Called To Crit Value Called By Crit Value Read Back Blood Gas Notified Time Sodium Potassium Chloride Carbon Dioxide Anion Gap BUN Creatinine Est GFR ( Amer) Est GFR (Non-Af Amer) POC Glucose (mg/dL) 86 Random Glucose Lactic Acid 7.9 H* Calcium Phosphorus Magnesium Ferritin Total Bilirubin AST ALT Alkaline Phosphatase Total Protein Albumin Globulin Albumin/Globulin Ratio Vitamin B12 Folate Arterial Blood Potassium Peritoneal CEA Blood Type B POSITIVE Antibody Screen Positive Antibody Identification Anti E 03/28/17 03/28/17 03/28/17 04:35 04:41 04:41 WBC 20.4 H D RBC 3.18 L Hgb 11.2 D Hct 34.3 MCV 107.9 H D MCH 35.1 H MCHC 32.5 L RDW 18.5 H Plt Count 5 L* MPV 11.2 Neut % (Auto) 94.3 H Lymph % (Auto) 2.9 L [place] % (Auto) 2.3 Eos % (Auto) 0.4 Baso % (Auto) 0.1 Neut # 19.3 H Lymph # 0.6 L [place] # 0.5 Eos # 0.1 Baso # 0.0 Neutrophils % (Manual) 69 Band Neutrophils % 27 H* Lymphocytes % (Manual) 2 L Monocytes % (Manual) 2 Myelocytes % Platelet Estimate Markedly decreased L Retic Count 1.0 D PT INR APTT Fibrinogen Puncture Site Lb pCO2 42 pO2 87 HCO3 19.6 L ABG pH 7.28 L ABG Total CO2 21.0 L ABG O2 Saturation 98.8 H ABG Base Excess -6.8 L ABG Hemoglobin ABG Carboxyhemoglobin POC ABG HHb (Measured) ABG Methemoglobin Crescencio Test Na ABG Potassium 4.2 A-a O2 Difference 574.0 Respiratory Index 6.6 Hgb O2 Saturation Glucose 90 Lactate 6.4 H* Vent Mode Prvc Mechanical Rate 14 FiO2 100.0 Tidal Volume 400 PEEP 5 Crit Value Called To Kathie peters/rn Crit Value Called By Wilmer almaguer/rt Crit Value Read Back Y Blood Gas Notified Time 445 Sodium 129.0 L 126 L Potassium 3.8 Chloride 99.0 94 L Carbon Dioxide 20 L Anion Gap 16 BUN 20 H Creatinine 1.1 Est GFR ( Amer) > 60 Est GFR (Non-Af Amer) 51 POC Glucose (mg/dL) Random Glucose 80 Lactic Acid Calcium 6.9 L Phosphorus Magnesium Ferritin Total Bilirubin 4.3 H AST 140 H D ALT 73 H D Alkaline Phosphatase 49 Total Protein 3.7 L Albumin 1.5 L D Globulin 2.2 Albumin/Globulin Ratio 0.7 L Vitamin B12 Folate Arterial Blood Potassium 4.2 Peritoneal CEA Blood Type Antibody Screen Antibody Identification 03/28/17 03/28/17 03/28/17 04:41 04:41 04:45 WBC RBC Hgb Hct MCV MCH MCHC RDW Plt Count MPV Neut % (Auto) Lymph % (Auto) [place] % (Auto) Eos % (Auto) Baso % (Auto) Neut # Lymph # [place] # Eos # Baso # Neutrophils % (Manual) Band Neutrophils % Lymphocytes % (Manual) Monocytes % (Manual) Myelocytes % Platelet Estimate Retic Count PT 29.5 H* INR 2.5 APTT 113 H* Fibrinogen 89 L Puncture Site pCO2 pO2 HCO3 ABG pH ABG Total CO2 ABG O2 Saturation ABG Base Excess ABG Hemoglobin ABG Carboxyhemoglobin POC ABG HHb (Measured) ABG Methemoglobin Crescencio Test ABG Potassium A-a O2 Difference Respiratory Index Hgb O2 Saturation Glucose Lactate Vent Mode Mechanical Rate FiO2 Tidal Volume PEEP Crit Value Called To Crit Value Called By Crit Value Read Back Blood Gas Notified Time Sodium Potassium Chloride Carbon Dioxide Anion Gap BUN Creatinine Est GFR ( Amer) Est GFR (Non-Af Amer) POC Glucose (mg/dL) Random Glucose Lactic Acid 6.4 H* Calcium Phosphorus Magnesium Ferritin 752.0 Total Bilirubin AST ALT Alkaline Phosphatase Total Protein Albumin Globulin Albumin/Globulin Ratio Vitamin B12 > 1000 H Folate 4.9 Arterial Blood Potassium Peritoneal CEA Blood Type Antibody Screen Antibody Identification 03/28/17 03/28/17 05:44 08:15 WBC RBC Hgb Hct MCV MCH MCHC RDW Plt Count MPV Neut % (Auto) Lymph % (Auto) [place] % (Auto) Eos % (Auto) Baso % (Auto) Neut # Lymph # [place] # Eos # Baso # Neutrophils % (Manual) Band Neutrophils % Lymphocytes % (Manual) Monocytes % (Manual) Myelocytes % Platelet Estimate Retic Count PT INR APTT Fibrinogen Puncture Site pCO2 pO2 HCO3 ABG pH ABG Total CO2 ABG O2 Saturation ABG Base Excess ABG Hemoglobin ABG Carboxyhemoglobin POC ABG HHb (Measured) ABG Methemoglobin Crescencio Test ABG Potassium A-a O2 Difference Respiratory Index Hgb O2 Saturation Glucose Lactate Vent Mode Mechanical Rate FiO2 Tidal Volume PEEP Crit Value Called To Crit Value Called By Crit Value Read Back Blood Gas Notified Time Sodium Potassium Chloride Carbon Dioxide Anion Gap BUN Creatinine Est GFR ( Amer) Est GFR (Non-Af Amer) POC Glucose (mg/dL) 94 Random Glucose Lactic Acid Calcium Phosphorus 3.7 Magnesium 1.2 L Ferritin Total Bilirubin AST ALT Alkaline Phosphatase Total Protein Albumin Globulin Albumin/Globulin Ratio Vitamin B12 Folate Arterial Blood Potassium Peritoneal CEA Blood Type Antibody Screen Antibody Identification EKG/Cardiology Studies: Cardiology / EKG Studies 03/27/17 12:40 EKG [ELECTROCARDIOGRAM] Routine Comment: Mode Of Transportation: Reason For Exam: Tachycardia Isolation: Contact 03/27/17 15:36 EKG [ELECTROCARDIOGRAM] Stat Comment: Mode Of Transportation: Reason For Exam: rapid response Isolation: Contact Fingerstick Blood Sugar Results: 94 Review of Systems - Review of Systems Systems not reviewed;Unavailable: Intubated Critical Care Progress Note - Nutrition Nutrition: Nutrition Category Date Time Status Heart Healthy Diet [DIET] Diets 03/17/17 Dinner Active Assessment/Plan - Assessment and Plan (Free Text) Assessment: Patient is a 61 year old female with increasing respiratory distress most likely 2/2 ARDS vs pulmonary edema. Plan: Respiratory: CXR 03/28 - Mixed alveolar/ interstitial pneumonitis again seen diffusely with increased alveolar component in the right base. The pattern may reflect early ARDS. Interval nasogastric tube placement is identified as described above with tip off the image. Chest CT w/o 03/27 - Marked bilateral pulmonary edema as seen on chest radiography. Small to moderate bilateral pleural effusions.Small to moderate perihepatic and perisplenic ascites. Patient to be transferred to ICU to be intubated. ABG - pCO2 42/pO2 87/HCO3 19.6/ pH 7.28 Vent settings 400/100/16/5 : Dr. Mejia consulted Dr. Dos Santos consulted WBC increased to 20.4 from 4.9 Lactic Acid improved to 6.4 from 7.9 ESBL E. Coli in urine culture. Dr. Dos Santos consulted repeat urine culture - Proteus Mirabilis - dc'd Nitrofurantoin due to resistance - continue Aztreonam 2gm IVPB q8h - continue Vanco 1gm IVPB q12h GI: Albumin 1.5 - repleted w/12.5g IV (25%), given 500mL bolus of NS following repletion of albumin Patient has been experiencing hypotension, most likely 2/2 sepsis and 3rd spacing of fluid due to low albumin. Patient was started on following drips overnight. - Versed - Phenylephrine - Levophed Electrolytes: Mag 1.2 - repleted with 2 gms IV Prophylactic Care: hold VTE due to thrombocytopenia protonix and SCDs Case discussed with Dr. Demetrio Sanches PGY1 <Erwin Atkinson - Last Filed: 03/28/17 17:32> CCU Objective - Vital Signs / Intake & Output Vital Signs (Last 4 hours): Vital Signs Temp Pulse Resp BP Pulse Ox 03/28/17 17:27 108/66 03/28/17 17:13 125 H 35 H 114/93 H 87 L 03/28/17 17:10 126 H 34 H 83 L 03/28/17 17:00 123 H 20 90 L 03/28/17 16:57 120 H 32 H 115/62 90 L 03/28/17 16:50 120 H 26 H 91 L 03/28/17 16:42 119 H 29 H 113/68 03/28/17 16:40 123 H 34 H 88 L 03/28/17 16:30 119 H 22 90 L 03/28/17 16:27 113 H 21 108/65 94 L 03/28/17 16:26 97.5 F L 111 H 26 H 108/65 03/28/17 16:20 119 H 29 H 89 L 03/28/17 16:11 113 H 14 100/68 95 03/28/17 16:10 111 H 27 H 96 03/28/17 16:00 111 H 23 94 L 03/28/17 15:57 113 H 29 H 98/63 L 95 03/28/17 15:56 97.5 F L 111 H 25 H 98/63 L 03/28/17 15:50 116 H 19 91 L 03/28/17 15:41 97.4 F L 106 H 30 H 92/56 L 95 03/28/17 15:27 110 H 26 H 90/59 L 97 03/28/17 15:26 97.4 F L 109 H 25 H 93/50 L 03/28/17 15:10 107 H 30 H 95 03/28/17 15:04 108 H 29 H 93/50 L 96 03/28/17 15:00 112 H 29 H 92 L 03/28/17 14:50 111 H 23 93 L 03/28/17 14:41 119 H 33 H 49/21 L 90 L 03/28/17 14:40 109 H 28 H 88/46 L 90 L 03/28/17 14:30 99 H 28 H 92 L 03/28/17 14:20 92 H 24 94 L 03/28/17 14:10 99 H 24 96 03/28/17 14:09 106 H 28 H 84/49 L 95 03/28/17 14:00 107 H 30 H 95 03/28/17 13:43 107 H 31 H 69/50 L 97 03/28/17 13:40 110 H 21 97 Intake and Output (Last 8hrs): Intake & Output 03/28/17 03/28/17 03/28/17 06:59 14:59 22:59 Intake Total 2263.1 4953.2 767.7 Output Total 250 50 Balance 2263.1 4703.2 717.7 Intake: IV 133.5 1148.5 Intake, IV Amount 1277.6 3522.7 767.7 RIJ Distal 1 90 270 RIJ Distal 2 2.4 7.2 RIJ Distal 3 37.5 112.5 Right Medial IJ 500 Right Medial IJ 2 225.0 Right Medial Port 1277 932 3 Internal Jugular Right Proximal IJ 1600 Right Proximal IJ 2 131 375 Right Proximal Port 0.6 4.8 Internal Jugular Blood Product 852 282 0 Apheresis Plts Acda Lr 0 202 2nd Con Unit [id number] Apheresis Plts Acda Lr 0 Irr 2nd Unit [id number] Red Blood Cells Cpd As1 325 Lr Unit [id number] Output: Urine 250 50 Urethral ([place]) 250 50 - Medications Active Medications: Active Medications Generic Name Dose Route Start Last Admin Trade Name Freq PRN Reason Stop Dose Admin Albuterol/Ipratropium 3 ml 03/25/17 20:30 03/28/17 16:13 Duoneb 3 Mg/0.5 Mg (3 Ml) Ud INH 3 ml RQ4 [place] Administration Aztreonam 2 gm/ Sodium 100 mls @ 200 mls/hr 03/27/17 15:00 03/28/17 14:44 Chloride IVPB 200 mls/hr Q8H [place] Administration Vancomycin HCl 1 gm/ Sodium 250 mls @ 166.667 mls/hr 03/27/17 17:00 03/28/17 17:23 Chloride IVPB 166.667 mls/hr Q12H [place] Administration Phenylephrine HCl 30 mg/ 253 mls @ 10.12 mls/hr 03/27/17 19:57 03/28/17 17:27 Dextrose IV 180 mcg/min .Q24H PRN 91.08 mls/hr TITRATE PER MD ORDER Administration Protocol 20 MCG/MIN Midazolam HCl 100 mg/ Dextrose 100 mls @ 0.63 mls/hr 03/27/17 21:30 03/28/17 01:00 IV 0 mg/kg/hr .Q24H [place] 0 mls/hr Protocol Titration 0.02 MG/KG/HR Sodium Bicarbonate 75 meq/ 1,000 mls @ 125 mls/hr 03/27/17 23:45 03/28/17 17: 26 Sodium Chloride IV 125 mls/hr .Q8H [place] Administration Norepinephrine Bitartrate 8 mg 258 mls @ 7.74 mls/hr 03/27/17 23:58 03/28/17 14:40 / Dextrose IV 20 mcg/min .Q24H PRN 38.7 mls/hr TITRATE PER MD ORDER Administration Protocol 4 MCG/MIN Vasopressin 40 units/ Sodium 42 mls @ 0.63 mls/hr 03/28/17 11:30 03/28/17 11: 52 Chloride IV 0.04 units/min .Q24H [place] 2.52 mls/hr Protocol Titration 0.01 UNITS/MIN Insulin Aspart 0 unit 03/28/17 12:00 03/28/17 11:59 Novolog SC Not Given Q6 [place] Protocol Morphine Sulfate 1 mg 03/23/17 18:26 03/26/17 13:54 Morphine IVP 1 mg Q4H PRN Administration Pain, moderate (4-7) Pantoprazole Sodium 40 mg 03/28/17 09:30 03/28/17 09:39 Protonix Inj IVP 40 mg Q12H [place] Administration - Patient Studies Lab Studies: Microbiology Studies 03/27/17 11:25 Blood Culture - Preliminary Blood-Venous NO GROWTH AFTER 24 HOURS 03/27/17 11:05 Blood Culture - Preliminary Blood-Venous NO GROWTH AFTER 24 HOURS 03/26/17 22:15 Urine Culture - Final Urine Proteus Mirabilis Lab Studies 03/28/17 03/28/17 03/28/17 Range/Units 17:02 11:31 08:15 WBC (4.8-10.8) K/uL RBC (3.80-5.20) Mil/uL Hgb (11.0-16.0) g/dL Hct (34.0-47.0) % MCV (81.0-99.0) fL MCH (27.0-31.0) pg MCHC (33.0-37.0) g/dL RDW (11.5-14.5) % Plt Count (130-400) K/uL MPV (7.2-11.7) fL Neut % (Auto) (50.0-75.0) % Lymph % (Auto) (20.0-40.0) % [place] % (Auto) (0.0-10.0) % Eos % (Auto) (0.0-4.0) % Baso % (Auto) (0.0-2.0) % Neut # (1.8-7.0) K/uL Lymph # (1.0-4.3) K/uL [place] # (0.0-0.8) K/uL Eos # (0.0-0.7) K/uL Baso # (0.0-0.2) K/uL Neutrophils % (Manual) (50-75) % Band Neutrophils % (0-2) % Lymphocytes % (Manual) (20-40) % Monocytes % (Manual) (0-10) % Myelocytes % (0-0) % Platelet Estimate (NORMAL) Retic Count (0.5-1.5) % PT (9.7-12.2) SECONDS INR APTT (21-34) SECONDS Fibrinogen (200-400) mg/dL Puncture Site pCO2 (35-45) mm/Hg pO2 (80-100) mm/Hg HCO3 (21-28) mmol/L ABG pH (7.35-7.45) ABG Total CO2 (22-28) mmol/L ABG O2 Saturation (95-98) % ABG Base Excess (-2.0-3.0) mmol/L ABG Hemoglobin (11.7-17.4) g/dL ABG Carboxyhemoglobin (0.5-1.5) % POC ABG HHb (Measured) (0.0-5.0) % ABG Methemoglobin (0.0-3.0) % Crescencio Test ABG Potassium (3.6-5.2) mmol/L A-a O2 Difference mm/Hg Respiratory Index Hgb O2 Saturation (95.0-98.0) % Glucose (65-105) mg/dl Lactate (0.7-2.1) mmol/L Vent Mode Mechanical Rate FiO2 % Tidal Volume PEEP Crit Value Called To Crit Value Called By Crit Value Read Back Blood Gas Notified Time Sodium (132-148) mmol/L Potassium (3.6-5.2) mmol/L Chloride (98-107) mmol/L Carbon Dioxide (22-30) mmol/L Anion Gap (10-20) BUN (7-17) mg/dL Creatinine (0.7-1.2) mg/dL Est GFR ( Amer) Est GFR (Non-Af Amer) POC Glucose (mg/dL) 142 H (65-110) mg/dL Random Glucose (65-105) mg/dL Lactic Acid (0.7-2.1) mmol/L Calcium (8.6-10.4) mg/dl Phosphorus 3.7 (2.5-4.5) mg/dL Magnesium 1.2 L (1.6-2.3) mg/dL Ferritin ng/mL Total Bilirubin (0.2-1.3) mg/dL AST (14-36) U/L ALT (9-52) U/L Alkaline Phosphatase (38-126) U/L Total Protein (6.3-8.3) g/dL Albumin (3.5-5.0) g/dL Globulin (2.2-3.9) gm/dL Albumin/Globulin Ratio (1.0-2.1) Vitamin B12 (239-931) pg/mL Folate ng/mL Arterial Blood Potassium (3.6-5.2) mmol/L Urine Color Ruba (YELLOW) Urine Clarity Hazy (Clear) Urine pH 5.0 (5.0-8.0) Ur Specific [place] 1.038 H (1.003-1.030) Urine Protein 2+ H (NEGATIVE) mg/dL Urine Glucose (UA) Normal (Normal) mg/dL Urine Ketones Trace (NEGATIVE) mg/dL Urine Blood 1+ H (NEGATIVE) Urine Nitrate Negative (NEGATIVE) Urine Bilirubin Negative (NEGATIVE) Urine Urobilinogen Normal (0.2-1.0) mg/dL Ur Leukocyte Esterase Neg (Negative) Glory/uL Urine WBC (Auto) 5 (0-5) /hpf Urine RBC (Auto) 4 H (0-3) /hpf Ur Squamous Epith Cells 2 (0-5) /hpf Urine Bacteria Rare (<OCC) Hyaline Casts >20 H (0-2) /lpf Peritoneal CEA (<2.0) ng/mL Blood Type Antibody Screen Antibody Identification 03/28/17 03/28/17 03/28/17 Range/Units 05:44 04:45 04:41 WBC (4.8-10.8) K/uL RBC (3.80-5.20) Mil/uL Hgb (11.0-16.0) g/dL Hct (34.0-47.0) % MCV (81.0-99.0) fL MCH (27.0-31.0) pg MCHC (33.0-37.0) g/dL RDW (11.5-14.5) % Plt Count (130-400) K/uL MPV (7.2-11.7) fL Neut % (Auto) (50.0-75.0) % Lymph % (Auto) (20.0-40.0) % [place] % (Auto) (0.0-10.0) % Eos % (Auto) (0.0-4.0) % Baso % (Auto) (0.0-2.0) % Neut # (1.8-7.0) K/uL Lymph # (1.0-4.3) K/uL [place] # (0.0-0.8) K/uL Eos # (0.0-0.7) K/uL Baso # (0.0-0.2) K/uL Neutrophils % (Manual) (50-75) % Band Neutrophils % (0-2) % Lymphocytes % (Manual) (20-40) % Monocytes % (Manual) (0-10) % Myelocytes % (0-0) % Platelet Estimate (NORMAL) Retic Count (0.5-1.5) % PT (9.7-12.2) SECONDS INR APTT (21-34) SECONDS Fibrinogen (200-400) mg/dL Puncture Site pCO2 (35-45) mm/Hg pO2 (80-100) mm/Hg HCO3 (21-28) mmol/L ABG pH (7.35-7.45) ABG Total CO2 (22-28) mmol/L ABG O2 Saturation (95-98) % ABG Base Excess (-2.0-3.0) mmol/L ABG Hemoglobin (11.7-17.4) g/dL ABG Carboxyhemoglobin (0.5-1.5) % POC ABG HHb (Measured) (0.0-5.0) % ABG Methemoglobin (0.0-3.0) % Crescencio Test ABG Potassium (3.6-5.2) mmol/L A-a O2 Difference mm/Hg Respiratory Index Hgb O2 Saturation (95.0-98.0) % Glucose (65-105) mg/dl Lactate (0.7-2.1) mmol/L Vent Mode Mechanical Rate FiO2 % Tidal Volume PEEP Crit Value Called To Crit Value Called By Crit Value Read Back Blood Gas Notified Time Sodium (132-148) mmol/L Potassium (3.6-5.2) mmol/L Chloride (98-107) mmol/L Carbon Dioxide (22-30) mmol/L Anion Gap (10-20) BUN (7-17) mg/dL Creatinine (0.7-1.2) mg/dL Est GFR ( Amer) Est GFR (Non-Af Amer) POC Glucose (mg/dL) 94 (65-110) mg/dL Random Glucose (65-105) mg/dL Lactic Acid 6.4 H* (0.7-2.1) mmol/L Calcium (8.6-10.4) mg/dl Phosphorus (2.5-4.5) mg/dL Magnesium (1.6-2.3) mg/dL Ferritin 752.0 ng/mL Total Bilirubin (0.2-1.3) mg/dL AST (14-36) U/L ALT (9-52) U/L Alkaline Phosphatase (38-126) U/L Total Protein (6.3-8.3) g/dL Albumin (3.5-5.0) g/dL Globulin (2.2-3.9) gm/dL Albumin/Globulin Ratio (1.0-2.1) Vitamin B12 > 1000 H (239-931) pg/mL Folate 4.9 ng/mL Arterial Blood Potassium (3.6-5.2) mmol/L Urine Color (YELLOW) Urine Clarity (Clear) Urine pH (5.0-8.0) Ur Specific [place] (1.003-1.030) Urine Protein (NEGATIVE) mg/dL Urine Glucose (UA) (Normal) mg/dL Urine Ketones (NEGATIVE) mg/dL Urine Blood (NEGATIVE) Urine Nitrate (NEGATIVE) Urine Bilirubin (NEGATIVE) Urine Urobilinogen (0.2-1.0) mg/dL Ur Leukocyte Esterase (Negative) Glory/uL Urine WBC (Auto) (0-5) /hpf Urine RBC (Auto) (0-3) /hpf Ur Squamous Epith Cells (0-5) /hpf Urine Bacteria (<OCC) Hyaline Casts (0-2) /lpf Peritoneal CEA (<2.0) ng/mL Blood Type Antibody Screen Antibody Identification 03/28/17 03/28/17 03/28/17 Range/Units 04:41 04:41 04:41 WBC 20.4 H D (4.8-10.8) K/uL RBC 3.18 L (3.80-5.20) Mil/uL Hgb 11.2 D (11.0-16.0) g/dL Hct 34.3 (34.0-47.0) % MCV 107.9 H D (81.0-99.0) fL MCH 35.1 H (27.0-31.0) pg MCHC 32.5 L (33.0-37.0) g/dL RDW 18.5 H (11.5-14.5) % Plt Count 5 L* (130-400) K/uL MPV 11.2 (7.2-11.7) fL Neut % (Auto) 94.3 H (50.0-75.0) % Lymph % (Auto) 2.9 L (20.0-40.0) % [place] % (Auto) 2.3 (0.0-10.0) % Eos % (Auto) 0.4 (0.0-4.0) % Baso % (Auto) 0.1 (0.0-2.0) % Neut # 19.3 H (1.8-7.0) K/uL Lymph # 0.6 L (1.0-4.3) K/uL [place] # 0.5 (0.0-0.8) K/uL Eos # 0.1 (0.0-0.7) K/uL Baso # 0.0 (0.0-0.2) K/uL Neutrophils % (Manual) 69 (50-75) % Band Neutrophils % 27 H* (0-2) % Lymphocytes % (Manual) 2 L (20-40) % Monocytes % (Manual) 2 (0-10) % Myelocytes % (0-0) % Platelet Estimate Markedly decreased L (NORMAL) Retic Count 1.0 D (0.5-1.5) % PT 29.5 H* (9.7-12.2) SECONDS INR 2.5 APTT 113 H* (21-34) SECONDS Fibrinogen 89 L (200-400) mg/dL Puncture Site pCO2 (35-45) mm/Hg pO2 (80-100) mm/Hg HCO3 (21-28) mmol/L ABG pH (7.35-7.45) ABG Total CO2 (22-28) mmol/L ABG O2 Saturation (95-98) % ABG Base Excess (-2.0-3.0) mmol/L ABG Hemoglobin (11.7-17.4) g/dL ABG Carboxyhemoglobin (0.5-1.5) % POC ABG HHb (Measured) (0.0-5.0) % ABG Methemoglobin (0.0-3.0) % Crescencio Test ABG Potassium (3.6-5.2) mmol/L A-a O2 Difference mm/Hg Respiratory Index Hgb O2 Saturation (95.0-98.0) % Glucose (65-105) mg/dl Lactate (0.7-2.1) mmol/L Vent Mode Mechanical Rate FiO2 % Tidal Volume PEEP Crit Value Called To Crit Value Called By Crit Value Read Back Blood Gas Notified Time Sodium 126 L (132-148) mmol/L Potassium 3.8 (3.6-5.2) mmol/L Chloride 94 L (98-107) mmol/L Carbon Dioxide 20 L (22-30) mmol/L Anion Gap 16 (10-20) BUN 20 H (7-17) mg/dL Creatinine 1.1 (0.7-1.2) mg/dL Est GFR ( Amer) > 60 Est GFR (Non-Af Amer) 51 POC Glucose (mg/dL) (65-110) mg/dL Random Glucose 80 (65-105) mg/dL Lactic Acid (0.7-2.1) mmol/L Calcium 6.9 L (8.6-10.4) mg/dl Phosphorus (2.5-4.5) mg/dL Magnesium (1.6-2.3) mg/dL Ferritin ng/mL Total Bilirubin 4.3 H (0.2-1.3) mg/dL AST 140 H D (14-36) U/L ALT 73 H D (9-52) U/L Alkaline Phosphatase 49 (38-126) U/L Total Protein 3.7 L (6.3-8.3) g/dL Albumin 1.5 L D (3.5-5.0) g/dL Globulin 2.2 (2.2-3.9) gm/dL Albumin/Globulin Ratio 0.7 L (1.0-2.1) Vitamin B12 (239-931) pg/mL Folate ng/mL Arterial Blood Potassium (3.6-5.2) mmol/L Urine Color (YELLOW) Urine Clarity (Clear) Urine pH (5.0-8.0) Ur Specific [place] (1.003-1.030) Urine Protein (NEGATIVE) mg/dL Urine Glucose (UA) (Normal) mg/dL Urine Ketones (NEGATIVE) mg/dL Urine Blood (NEGATIVE) Urine Nitrate (NEGATIVE) Urine Bilirubin (NEGATIVE) Urine Urobilinogen (0.2-1.0) mg/dL Ur Leukocyte Esterase (Negative) Glory/uL Urine WBC (Auto) (0-5) /hpf Urine RBC (Auto) (0-3) /hpf Ur Squamous Epith Cells (0-5) /hpf Urine Bacteria (<OCC) Hyaline Casts (0-2) /lpf Peritoneal CEA (<2.0) ng/mL Blood Type Antibody Screen Antibody Identification 03/28/17 03/28/17 03/27/17 Range/Units 04:35 00:17 23:53 WBC (4.8-10.8) K/uL RBC (3.80-5.20) Mil/uL Hgb (11.0-16.0) g/dL Hct (34.0-47.0) % MCV (81.0-99.0) fL MCH (27.0-31.0) pg MCHC (33.0-37.0) g/dL RDW (11.5-14.5) % Plt Count (130-400) K/uL MPV (7.2-11.7) fL Neut % (Auto) (50.0-75.0) % Lymph % (Auto) (20.0-40.0) % [place] % (Auto) (0.0-10.0) % Eos % (Auto) (0.0-4.0) % Baso % (Auto) (0.0-2.0) % Neut # (1.8-7.0) K/uL Lymph # (1.0-4.3) K/uL [place] # (0.0-0.8) K/uL Eos # (0.0-0.7) K/uL Baso # (0.0-0.2) K/uL Neutrophils % (Manual) (50-75) % Band Neutrophils % (0-2) % Lymphocytes % (Manual) (20-40) % Monocytes % (Manual) (0-10) % Myelocytes % (0-0) % Platelet Estimate (NORMAL) Retic Count (0.5-1.5) % PT (9.7-12.2) SECONDS INR APTT (21-34) SECONDS Fibrinogen (200-400) mg/dL Puncture Site Lb pCO2 42 (35-45) mm/Hg pO2 87 (80-100) mm/Hg HCO3 19.6 L (21-28) mmol/L ABG pH 7.28 L (7.35-7.45) ABG Total CO2 21.0 L (22-28) mmol/L ABG O2 Saturation 98.8 H (95-98) % ABG Base Excess -6.8 L (-2.0-3.0) mmol/L ABG Hemoglobin (11.7-17.4) g/dL ABG Carboxyhemoglobin (0.5-1.5) % POC ABG HHb (Measured) (0.0-5.0) % ABG Methemoglobin (0.0-3.0) % Crescencio Test Na ABG Potassium 4.2 (3.6-5.2) mmol/L A-a O2 Difference 574.0 mm/Hg Respiratory Index 6.6 Hgb O2 Saturation (95.0-98.0) % Glucose 90 (65-105) mg/dl Lactate 6.4 H* (0.7-2.1) mmol/L Vent Mode Prvc Mechanical Rate 14 FiO2 100.0 % Tidal Volume 400 PEEP 5 Crit Value Called To Kathie peters/rn Crit Value Called By Wilmer almaguer/rt Crit Value Read Back Y Blood Gas Notified Time 445 Sodium 129.0 L (132-148) mmol/L Potassium (3.6-5.2) mmol/L Chloride 99.0 (98-107) mmol/L Carbon Dioxide (22-30) mmol/L Anion Gap (10-20) BUN (7-17) mg/dL Creatinine (0.7-1.2) mg/dL Est GFR ( Amer) Est GFR (Non-Af Amer) POC Glucose (mg/dL) 86 (65-110) mg/dL Random Glucose (65-105) mg/dL Lactic Acid 7.9 H* (0.7-2.1) mmol/L Calcium (8.6-10.4) mg/dl Phosphorus (2.5-4.5) mg/dL Magnesium (1.6-2.3) mg/dL Ferritin ng/mL Total Bilirubin (0.2-1.3) mg/dL AST (14-36) U/L ALT (9-52) U/L Alkaline Phosphatase (38-126) U/L Total Protein (6.3-8.3) g/dL Albumin (3.5-5.0) g/dL Globulin (2.2-3.9) gm/dL Albumin/Globulin Ratio (1.0-2.1) Vitamin B12 (239-931) pg/mL Folate ng/mL Arterial Blood Potassium 4.2 (3.6-5.2) mmol/L Urine Color (YELLOW) Urine Clarity (Clear) Urine pH (5.0-8.0) Ur Specific [place] (1.003-1.030) Urine Protein (NEGATIVE) mg/dL Urine Glucose (UA) (Normal) mg/dL Urine Ketones (NEGATIVE) mg/dL Urine Blood (NEGATIVE) Urine Nitrate (NEGATIVE) Urine Bilirubin (NEGATIVE) Urine Urobilinogen (0.2-1.0) mg/dL Ur Leukocyte Esterase (Negative) Glory/uL Urine WBC (Auto) (0-5) /hpf Urine RBC (Auto) (0-3) /hpf Ur Squamous Epith Cells (0-5) /hpf Urine Bacteria (<OCC) Hyaline Casts (0-2) /lpf Peritoneal CEA (<2.0) ng/mL Blood Type Antibody Screen Antibody Identification 03/27/17 03/27/17 03/27/17 Range/Units 21:42 21:10 20:28 WBC (4.8-10.8) K/uL RBC (3.80-5.20) Mil/uL Hgb (11.0-16.0) g/dL Hct (34.0-47.0) % MCV (81.0-99.0) fL MCH (27.0-31.0) pg MCHC (33.0-37.0) g/dL RDW (11.5-14.5) % Plt Count (130-400) K/uL MPV (7.2-11.7) fL Neut % (Auto) (50.0-75.0) % Lymph % (Auto) (20.0-40.0) % [place] % (Auto) (0.0-10.0) % Eos % (Auto) (0.0-4.0) % Baso % (Auto) (0.0-2.0) % Neut # (1.8-7.0) K/uL Lymph # (1.0-4.3) K/uL [place] # (0.0-0.8) K/uL Eos # (0.0-0.7) K/uL Baso # (0.0-0.2) K/uL Neutrophils % (Manual) (50-75) % Band Neutrophils % (0-2) % Lymphocytes % (Manual) (20-40) % Monocytes % (Manual) (0-10) % Myelocytes % (0-0) % Platelet Estimate (NORMAL) Retic Count (0.5-1.5) % PT (9.7-12.2) SECONDS INR APTT (21-34) SECONDS Fibrinogen (200-400) mg/dL Puncture Site Rba pCO2 47 H (35-45) mm/Hg pO2 70 L (80-100) mm/Hg HCO3 18.3 L (21-28) mmol/L ABG pH 7.21 L (7.35-7.45) ABG Total CO2 20.2 L (22-28) mmol/L ABG O2 Saturation 96.2 (95-98) % ABG Base Excess -8.5 L (-2.0-3.0) mmol/L ABG Hemoglobin 7.6 L (11.7-17.4) g/dL ABG Carboxyhemoglobin 2.1 H (0.5-1.5) % POC ABG HHb (Measured) 3.7 (0.0-5.0) % ABG Methemoglobin 1.0 (0.0-3.0) % Crescencio Test Na ABG Potassium (3.6-5.2) mmol/L A-a O2 Difference 584.0 mm/Hg Respiratory Index 8.3 Hgb O2 Saturation 93.3 L (95.0-98.0) % Glucose (65-105) mg/dl Lactate (0.7-2.1) mmol/L Vent Mode Prvc Mechanical Rate 14 FiO2 100.0 % Tidal Volume 400 PEEP 5 Crit Value Called To Crit Value Called By Crit Value Read Back Blood Gas Notified Time Sodium 125 L (132-148) mmol/L Potassium 3.8 (3.6-5.2) mmol/L Chloride 95 L (98-107) mmol/L Carbon Dioxide 18 L (22-30) mmol/L Anion Gap 15 (10-20) BUN 19 H (7-17) mg/dL Creatinine 1.0 (0.7-1.2) mg/dL Est GFR ( Amer) > 60 Est GFR (Non-Af Amer) 57 POC Glucose (mg/dL) (65-110) mg/dL Random Glucose 209 H (65-105) mg/dL Lactic Acid (0.7-2.1) mmol/L Calcium 6.7 L (8.6-10.4) mg/dl Phosphorus 3.2 (2.5-4.5) mg/dL Magnesium 1.2 L (1.6-2.3) mg/dL Ferritin ng/mL Total Bilirubin 2.5 H (0.2-1.3) mg/dL AST 73 H D (14-36) U/L ALT 41 (9-52) U/L Alkaline Phosphatase 58 (38-126) U/L Total Protein 3.0 L (6.3-8.3) g/dL Albumin 1.2 L D (3.5-5.0) g/dL Globulin 1.8 L (2.2-3.9) gm/dL Albumin/Globulin Ratio 0.7 L (1.0-2.1) Vitamin B12 (239-931) pg/mL Folate ng/mL Arterial Blood Potassium (3.6-5.2) mmol/L Urine Color (YELLOW) Urine Clarity (Clear) Urine pH (5.0-8.0) Ur Specific [place] (1.003-1.030) Urine Protein (NEGATIVE) mg/dL Urine Glucose (UA) (Normal) mg/dL Urine Ketones (NEGATIVE) mg/dL Urine Blood (NEGATIVE) Urine Nitrate (NEGATIVE) Urine Bilirubin (NEGATIVE) Urine Urobilinogen (0.2-1.0) mg/dL Ur Leukocyte Esterase (Negative) Glory/uL Urine WBC (Auto) (0-5) /hpf Urine RBC (Auto) (0-3) /hpf Ur Squamous Epith Cells (0-5) /hpf Urine Bacteria (<OCC) Hyaline Casts (0-2) /lpf Peritoneal CEA (<2.0) ng/mL Blood Type B POSITIVE Antibody Screen Positive Antibody Identification Anti E 03/27/17 03/27/17 03/27/17 Range/Units 20:28 20:25 19:18 WBC 4.9 D (4.8-10.8) K/uL RBC 2.14 L (3.80-5.20) Mil/uL Hgb 8.0 L D (11.0-16.0) g/dL Hct 24.5 L (34.0-47.0) % MCV 114.4 H D (81.0-99.0) fL MCH 37.3 H (27.0-31.0) pg MCHC 32.6 L (33.0-37.0) g/dL RDW 14.4 (11.5-14.5) % Plt Count 9 L* D (130-400) K/uL MPV 10.6 (7.2-11.7) fL Neut % (Auto) 97.5 H (50.0-75.0) % Lymph % (Auto) 1.1 L (20.0-40.0) % [place] % (Auto) 0.5 (0.0-10.0) % Eos % (Auto) 0.6 (0.0-4.0) % Baso % (Auto) 0.3 (0.0-2.0) % Neut # 4.8 (1.8-7.0) K/uL Lymph # 0.1 L (1.0-4.3) K/uL [place] # 0.0 (0.0-0.8) K/uL Eos # 0.0 (0.0-0.7) K/uL Baso # 0.0 (0.0-0.2) K/uL Neutrophils % (Manual) 80 H (50-75) % Band Neutrophils % 14 H* (0-2) % Lymphocytes % (Manual) 3 L (20-40) % Monocytes % (Manual) 2 (0-10) % Myelocytes % 1 H (0-0) % Platelet Estimate Markedly decreased L (NORMAL) Retic Count (0.5-1.5) % PT (9.7-12.2) SECONDS INR APTT (21-34) SECONDS Fibrinogen (200-400) mg/dL Puncture Site pCO2 (35-45) mm/Hg pO2 (80-100) mm/Hg HCO3 (21-28) mmol/L ABG pH (7.35-7.45) ABG Total CO2 (22-28) mmol/L ABG O2 Saturation (95-98) % ABG Base Excess (-2.0-3.0) mmol/L ABG Hemoglobin (11.7-17.4) g/dL ABG Carboxyhemoglobin (0.5-1.5) % POC ABG HHb (Measured) (0.0-5.0) % ABG Methemoglobin (0.0-3.0) % Crescencio Test ABG Potassium (3.6-5.2) mmol/L A-a O2 Difference mm/Hg Respiratory Index Hgb O2 Saturation (95.0-98.0) % Glucose (65-105) mg/dl Lactate (0.7-2.1) mmol/L Vent Mode Mechanical Rate FiO2 % Tidal Volume PEEP Crit Value Called To Crit Value Called By Crit Value Read Back Blood Gas Notified Time Sodium (132-148) mmol/L Potassium (3.6-5.2) mmol/L Chloride (98-107) mmol/L Carbon Dioxide (22-30) mmol/L Anion Gap (10-20) BUN (7-17) mg/dL Creatinine (0.7-1.2) mg/dL Est GFR ( Amer) Est GFR (Non-Af Amer) POC Glucose (mg/dL) 199 H < 20 L* (65-110) mg/dL Random Glucose (65-105) mg/dL Lactic Acid (0.7-2.1) mmol/L Calcium (8.6-10.4) mg/dl Phosphorus (2.5-4.5) mg/dL Magnesium (1.6-2.3) mg/dL Ferritin ng/mL Total Bilirubin (0.2-1.3) mg/dL AST (14-36) U/L ALT (9-52) U/L Alkaline Phosphatase (38-126) U/L Total Protein (6.3-8.3) g/dL Albumin (3.5-5.0) g/dL Globulin (2.2-3.9) gm/dL Albumin/Globulin Ratio (1.0-2.1) Vitamin B12 (239-931) pg/mL Folate ng/mL Arterial Blood Potassium (3.6-5.2) mmol/L Urine Color (YELLOW) Urine Clarity (Clear) Urine pH (5.0-8.0) Ur Specific [place] (1.003-1.030) Urine Protein (NEGATIVE) mg/dL Urine Glucose (UA) (Normal) mg/dL Urine Ketones (NEGATIVE) mg/dL Urine Blood (NEGATIVE) Urine Nitrate (NEGATIVE) Urine Bilirubin (NEGATIVE) Urine Urobilinogen (0.2-1.0) mg/dL Ur Leukocyte Esterase (Negative) Glory/uL Urine WBC (Auto) (0-5) /hpf Urine RBC (Auto) (0-3) /hpf Ur Squamous Epith Cells (0-5) /hpf Urine Bacteria (<OCC) Hyaline Casts (0-2) /lpf Peritoneal CEA (<2.0) ng/mL Blood Type Antibody Screen Antibody Identification 03/23/17 Range/Units 17:19 WBC (4.8-10.8) K/uL RBC (3.80-5.20) Mil/uL Hgb (11.0-16.0) g/dL Hct (34.0-47.0) % MCV (81.0-99.0) fL MCH (27.0-31.0) pg MCHC (33.0-37.0) g/dL RDW (11.5-14.5) % Plt Count (130-400) K/uL MPV (7.2-11.7) fL Neut % (Auto) (50.0-75.0) % Lymph % (Auto) (20.0-40.0) % [place] % (Auto) (0.0-10.0) % Eos % (Auto) (0.0-4.0) % Baso % (Auto) (0.0-2.0) % Neut # (1.8-7.0) K/uL Lymph # (1.0-4.3) K/uL [place] # (0.0-0.8) K/uL Eos # (0.0-0.7) K/uL Baso # (0.0-0.2) K/uL Neutrophils % (Manual) (50-75) % Band Neutrophils % (0-2) % Lymphocytes % (Manual) (20-40) % Monocytes % (Manual) (0-10) % Myelocytes % (0-0) % Platelet Estimate (NORMAL) Retic Count (0.5-1.5) % PT (9.7-12.2) SECONDS INR APTT (21-34) SECONDS Fibrinogen (200-400) mg/dL Puncture Site pCO2 (35-45) mm/Hg pO2 (80-100) mm/Hg HCO3 (21-28) mmol/L ABG pH (7.35-7.45) ABG Total CO2 (22-28) mmol/L ABG O2 Saturation (95-98) % ABG Base Excess (-2.0-3.0) mmol/L ABG Hemoglobin (11.7-17.4) g/dL ABG Carboxyhemoglobin (0.5-1.5) % POC ABG HHb (Measured) (0.0-5.0) % ABG Methemoglobin (0.0-3.0) % Crescencio Test ABG Potassium (3.6-5.2) mmol/L A-a O2 Difference mm/Hg Respiratory Index Hgb O2 Saturation (95.0-98.0) % Glucose (65-105) mg/dl Lactate (0.7-2.1) mmol/L Vent Mode Mechanical Rate FiO2 % Tidal Volume PEEP Crit Value Called To Crit Value Called By Crit Value Read Back Blood Gas Notified Time Sodium (132-148) mmol/L Potassium (3.6-5.2) mmol/L Chloride (98-107) mmol/L Carbon Dioxide (22-30) mmol/L Anion Gap (10-20) BUN (7-17) mg/dL Creatinine (0.7-1.2) mg/dL Est GFR ( Amer) Est GFR (Non-Af Amer) POC Glucose (mg/dL) (65-110) mg/dL Random Glucose (65-105) mg/dL Lactic Acid (0.7-2.1) mmol/L Calcium (8.6-10.4) mg/dl Phosphorus (2.5-4.5) mg/dL Magnesium (1.6-2.3) mg/dL Ferritin ng/mL Total Bilirubin (0.2-1.3) mg/dL AST (14-36) U/L ALT (9-52) U/L Alkaline Phosphatase (38-126) U/L Total Protein (6.3-8.3) g/dL Albumin (3.5-5.0) g/dL Globulin (2.2-3.9) gm/dL Albumin/Globulin Ratio (1.0-2.1) Vitamin B12 (239-931) pg/mL Folate ng/mL Arterial Blood Potassium (3.6-5.2) mmol/L Urine Color (YELLOW) Urine Clarity (Clear) Urine pH (5.0-8.0) Ur Specific [place] (1.003-1.030) Urine Protein (NEGATIVE) mg/dL Urine Glucose (UA) (Normal) mg/dL Urine Ketones (NEGATIVE) mg/dL Urine Blood (NEGATIVE) Urine Nitrate (NEGATIVE) Urine Bilirubin (NEGATIVE) Urine Urobilinogen (0.2-1.0) mg/dL Ur Leukocyte Esterase (Negative) Glory/uL Urine WBC (Auto) (0-5) /hpf Urine RBC (Auto) (0-3) /hpf Ur Squamous Epith Cells (0-5) /hpf Urine Bacteria (<OCC) Hyaline Casts (0-2) /lpf Peritoneal CEA 3 H (<2.0) ng/mL Blood Type Antibody Screen Antibody Identification Laboratory Results - last 24 hr 03/23/17 03/27/17 03/27/17 17:19 19:18 20:25 WBC RBC Hgb Hct MCV MCH MCHC RDW Plt Count MPV Neut % (Auto) Lymph % (Auto) [place] % (Auto) Eos % (Auto) Baso % (Auto) Neut # Lymph # [place] # Eos # Baso # Neutrophils % (Manual) Band Neutrophils % Lymphocytes % (Manual) Monocytes % (Manual) Myelocytes % Platelet Estimate Retic Count PT INR APTT Fibrinogen Puncture Site pCO2 pO2 HCO3 ABG pH ABG Total CO2 ABG O2 Saturation ABG Base Excess ABG Hemoglobin ABG Carboxyhemoglobin POC ABG HHb (Measured) ABG Methemoglobin Crescencio Test ABG Potassium A-a O2 Difference Respiratory Index Hgb O2 Saturation Glucose Lactate Vent Mode Mechanical Rate FiO2 Tidal Volume PEEP Crit Value Called To Crit Value Called By Crit Value Read Back Blood Gas Notified Time Sodium Potassium Chloride Carbon Dioxide Anion Gap BUN Creatinine Est GFR ( Amer) Est GFR (Non-Af Amer) POC Glucose (mg/dL) < 20 L* 199 H Random Glucose Lactic Acid Calcium Phosphorus Magnesium Ferritin Total Bilirubin AST ALT Alkaline Phosphatase Total Protein Albumin Globulin Albumin/Globulin Ratio Vitamin B12 Folate Arterial Blood Potassium Urine Color Urine Clarity Urine pH Ur Specific [place] Urine Protein Urine Glucose (UA) Urine Ketones Urine Blood Urine Nitrate Urine Bilirubin Urine Urobilinogen Ur Leukocyte Esterase Urine WBC (Auto) Urine RBC (Auto) Ur Squamous Epith Cells Urine Bacteria Hyaline Casts Peritoneal CEA 3 H Blood Type Antibody Screen Antibody Identification 03/27/17 03/27/17 03/27/17 20:28 20:28 21:10 WBC 4.9 D RBC 2.14 L Hgb 8.0 L D Hct 24.5 L MCV 114.4 H D MCH 37.3 H MCHC 32.6 L RDW 14.4 Plt Count 9 L* D MPV 10.6 Neut % (Auto) 97.5 H Lymph % (Auto) 1.1 L [place] % (Auto) 0.5 Eos % (Auto) 0.6 Baso % (Auto) 0.3 Neut # 4.8 Lymph # 0.1 L [place] # 0.0 Eos # 0.0 Baso # 0.0 Neutrophils % (Manual) 80 H Band Neutrophils % 14 H* Lymphocytes % (Manual) 3 L Monocytes % (Manual) 2 Myelocytes % 1 H Platelet Estimate Markedly decreased L Retic Count PT INR APTT Fibrinogen Puncture Site Rba pCO2 47 H pO2 70 L HCO3 18.3 L ABG pH 7.21 L ABG Total CO2 20.2 L ABG O2 Saturation 96.2 ABG Base Excess -8.5 L ABG Hemoglobin 7.6 L ABG Carboxyhemoglobin 2.1 H POC ABG HHb (Measured) 3.7 ABG Methemoglobin 1.0 Crescencio Test Na ABG Potassium A-a O2 Difference 584.0 Respiratory Index 8.3 Hgb O2 Saturation 93.3 L Glucose Lactate Vent Mode Prvc Mechanical Rate 14 FiO2 100.0 Tidal Volume 400 PEEP 5 Crit Value Called To Crit Value Called By Crit Value Read Back Blood Gas Notified Time Sodium 125 L Potassium 3.8 Chloride 95 L Carbon Dioxide 18 L Anion Gap 15 BUN 19 H Creatinine 1.0 Est GFR ( Amer) > 60 Est GFR (Non-Af Amer) 57 POC Glucose (mg/dL) Random Glucose 209 H Lactic Acid Calcium 6.7 L Phosphorus 3.2 Magnesium 1.2 L Ferritin Total Bilirubin 2.5 H AST 73 H D ALT 41 Alkaline Phosphatase 58 Total Protein 3.0 L Albumin 1.2 L D Globulin 1.8 L Albumin/Globulin Ratio 0.7 L Vitamin B12 Folate Arterial Blood Potassium Urine Color Urine Clarity Urine pH Ur Specific [place] Urine Protein Urine Glucose (UA) Urine Ketones Urine Blood Urine Nitrate Urine Bilirubin Urine Urobilinogen Ur Leukocyte Esterase Urine WBC (Auto) Urine RBC (Auto) Ur Squamous Epith Cells Urine Bacteria Hyaline Casts Peritoneal CEA Blood Type Antibody Screen Antibody Identification 03/27/17 03/27/17 03/28/17 21:42 23:53 00:17 WBC RBC Hgb Hct MCV MCH MCHC RDW Plt Count MPV Neut % (Auto) Lymph % (Auto) [place] % (Auto) Eos % (Auto) Baso % (Auto) Neut # Lymph # [place] # Eos # Baso # Neutrophils % (Manual) Band Neutrophils % Lymphocytes % (Manual) Monocytes % (Manual) Myelocytes % Platelet Estimate Retic Count PT INR APTT Fibrinogen Puncture Site pCO2 pO2 HCO3 ABG pH ABG Total CO2 ABG O2 Saturation ABG Base Excess ABG Hemoglobin ABG Carboxyhemoglobin POC ABG HHb (Measured) ABG Methemoglobin Crescencio Test ABG Potassium A-a O2 Difference Respiratory Index Hgb O2 Saturation Glucose Lactate Vent Mode Mechanical Rate FiO2 Tidal Volume PEEP Crit Value Called To Crit Value Called By Crit Value Read Back Blood Gas Notified Time Sodium Potassium Chloride Carbon Dioxide Anion Gap BUN Creatinine Est GFR ( Amer) Est GFR (Non-Af Amer) POC Glucose (mg/dL) 86 Random Glucose Lactic Acid 7.9 H* Calcium Phosphorus Magnesium Ferritin Total Bilirubin AST ALT Alkaline Phosphatase Total Protein Albumin Globulin Albumin/Globulin Ratio Vitamin B12 Folate Arterial Blood Potassium Urine Color Urine Clarity Urine pH Ur Specific [place] Urine Protein Urine Glucose (UA) Urine Ketones Urine Blood Urine Nitrate Urine Bilirubin Urine Urobilinogen Ur Leukocyte Esterase Urine WBC (Auto) Urine RBC (Auto) Ur Squamous Epith Cells Urine Bacteria Hyaline Casts Peritoneal CEA Blood Type B POSITIVE Antibody Screen Positive Antibody Identification Anti E 03/28/17 03/28/17 03/28/17 04:35 04:41 04:41 WBC 20.4 H D RBC 3.18 L Hgb 11.2 D Hct 34.3 MCV 107.9 H D MCH 35.1 H MCHC 32.5 L RDW 18.5 H Plt Count 5 L* MPV 11.2 Neut % (Auto) 94.3 H Lymph % (Auto) 2.9 L [place] % (Auto) 2.3 Eos % (Auto) 0.4 Baso % (Auto) 0.1 Neut # 19.3 H Lymph # 0.6 L [place] # 0.5 Eos # 0.1 Baso # 0.0 Neutrophils % (Manual) 69 Band Neutrophils % 27 H* Lymphocytes % (Manual) 2 L Monocytes % (Manual) 2 Myelocytes % Platelet Estimate Markedly decreased L Retic Count 1.0 D PT INR APTT Fibrinogen Puncture Site Lb pCO2 42 pO2 87 HCO3 19.6 L ABG pH 7.28 L ABG Total CO2 21.0 L ABG O2 Saturation 98.8 H ABG Base Excess -6.8 L ABG Hemoglobin ABG Carboxyhemoglobin POC ABG HHb (Measured) ABG Methemoglobin Crescencio Test Na ABG Potassium 4.2 A-a O2 Difference 574.0 Respiratory Index 6.6 Hgb O2 Saturation Glucose 90 Lactate 6.4 H* Vent Mode Prvc Mechanical Rate 14 FiO2 100.0 Tidal Volume 400 PEEP 5 Crit Value Called To Kathie peters/rn Crit Value Called By Wilmer almaguer/rt Crit Value Read Back Y Blood Gas Notified Time 445 Sodium 129.0 L 126 L Potassium 3.8 Chloride 99.0 94 L Carbon Dioxide 20 L Anion Gap 16 BUN 20 H Creatinine 1.1 Est GFR ( Amer) > 60 Est GFR (Non-Af Amer) 51 POC Glucose (mg/dL) Random Glucose 80 Lactic Acid Calcium 6.9 L Phosphorus Magnesium Ferritin Total Bilirubin 4.3 H AST 140 H D ALT 73 H D Alkaline Phosphatase 49 Total Protein 3.7 L Albumin 1.5 L D Globulin 2.2 Albumin/Globulin Ratio 0.7 L Vitamin B12 Folate Arterial Blood Potassium 4.2 Urine Color Urine Clarity Urine pH Ur Specific [place] Urine Protein Urine Glucose (UA) Urine Ketones Urine Blood Urine Nitrate Urine Bilirubin Urine Urobilinogen Ur Leukocyte Esterase Urine WBC (Auto) Urine RBC (Auto) Ur Squamous Epith Cells Urine Bacteria Hyaline Casts Peritoneal CEA Blood Type Antibody Screen Antibody Identification 03/28/17 03/28/17 03/28/17 04:41 04:41 04:45 WBC RBC Hgb Hct MCV MCH MCHC RDW Plt Count MPV Neut % (Auto) Lymph % (Auto) [place] % (Auto) Eos % (Auto) Baso % (Auto) Neut # Lymph # [place] # Eos # Baso # Neutrophils % (Manual) Band Neutrophils % Lymphocytes % (Manual) Monocytes % (Manual) Myelocytes % Platelet Estimate Retic Count PT 29.5 H* INR 2.5 APTT 113 H* Fibrinogen 89 L Puncture Site pCO2 pO2 HCO3 ABG pH ABG Total CO2 ABG O2 Saturation ABG Base Excess ABG Hemoglobin ABG Carboxyhemoglobin POC ABG HHb (Measured) ABG Methemoglobin Crescencio Test ABG Potassium A-a O2 Difference Respiratory Index Hgb O2 Saturation Glucose Lactate Vent Mode Mechanical Rate FiO2 Tidal Volume PEEP Crit Value Called To Crit Value Called By Crit Value Read Back Blood Gas Notified Time Sodium Potassium Chloride Carbon Dioxide Anion Gap BUN Creatinine Est GFR ( Amer) Est GFR (Non-Af Amer) POC Glucose (mg/dL) Random Glucose Lactic Acid 6.4 H* Calcium Phosphorus Magnesium Ferritin 752.0 Total Bilirubin AST ALT Alkaline Phosphatase Total Protein Albumin Globulin Albumin/Globulin Ratio Vitamin B12 > 1000 H Folate 4.9 Arterial Blood Potassium Urine Color Urine Clarity Urine pH Ur Specific [place] Urine Protein Urine Glucose (UA) Urine Ketones Urine Blood Urine Nitrate Urine Bilirubin Urine Urobilinogen Ur Leukocyte Esterase Urine WBC (Auto) Urine RBC (Auto) Ur Squamous Epith Cells Urine Bacteria Hyaline Casts Peritoneal CEA Blood Type Antibody Screen Antibody Identification 03/28/17 03/28/17 03/28/17 05:44 08:15 11:31 WBC RBC Hgb Hct MCV MCH MCHC RDW Plt Count MPV Neut % (Auto) Lymph % (Auto) [place] % (Auto) Eos % (Auto) Baso % (Auto) Neut # Lymph # [place] # Eos # Baso # Neutrophils % (Manual) Band Neutrophils % Lymphocytes % (Manual) Monocytes % (Manual) Myelocytes % Platelet Estimate Retic Count PT INR APTT Fibrinogen Puncture Site pCO2 pO2 HCO3 ABG pH ABG Total CO2 ABG O2 Saturation ABG Base Excess ABG Hemoglobin ABG Carboxyhemoglobin POC ABG HHb (Measured) ABG Methemoglobin Crescencio Test ABG Potassium A-a O2 Difference Respiratory Index Hgb O2 Saturation Glucose Lactate Vent Mode Mechanical Rate FiO2 Tidal Volume PEEP Crit Value Called To Crit Value Called By Crit Value Read Back Blood Gas Notified Time Sodium Potassium Chloride Carbon Dioxide Anion Gap BUN Creatinine Est GFR ( Amer) Est GFR (Non-Af Amer) POC Glucose (mg/dL) 94 142 H Random Glucose Lactic Acid Calcium Phosphorus 3.7 Magnesium 1.2 L Ferritin Total Bilirubin AST ALT Alkaline Phosphatase Total Protein Albumin Globulin Albumin/Globulin Ratio Vitamin B12 Folate Arterial Blood Potassium Urine Color Urine Clarity Urine pH Ur Specific [place] Urine Protein Urine Glucose (UA) Urine Ketones Urine Blood Urine Nitrate Urine Bilirubin Urine Urobilinogen Ur Leukocyte Esterase Urine WBC (Auto) Urine RBC (Auto) Ur Squamous Epith Cells Urine Bacteria Hyaline Casts Peritoneal CEA Blood Type Antibody Screen Antibody Identification 03/28/17 17:02 WBC RBC Hgb Hct MCV MCH MCHC RDW Plt Count MPV Neut % (Auto) Lymph % (Auto) [place] % (Auto) Eos % (Auto) Baso % (Auto) Neut # Lymph # [place] # Eos # Baso # Neutrophils % (Manual) Band Neutrophils % Lymphocytes % (Manual) Monocytes % (Manual) Myelocytes % Platelet Estimate Retic Count PT INR APTT Fibrinogen Puncture Site pCO2 pO2 HCO3 ABG pH ABG Total CO2 ABG O2 Saturation ABG Base Excess ABG Hemoglobin ABG Carboxyhemoglobin POC ABG HHb (Measured) ABG Methemoglobin Crescencio Test ABG Potassium A-a O2 Difference Respiratory Index Hgb O2 Saturation Glucose Lactate Vent Mode Mechanical Rate FiO2 Tidal Volume PEEP Crit Value Called To Crit Value Called By Crit Value Read Back Blood Gas Notified Time Sodium Potassium Chloride Carbon Dioxide Anion Gap BUN Creatinine Est GFR ( Amer) Est GFR (Non-Af Amer) POC Glucose (mg/dL) Random Glucose Lactic Acid Calcium Phosphorus Magnesium Ferritin Total Bilirubin AST ALT Alkaline Phosphatase Total Protein Albumin Globulin Albumin/Globulin Ratio Vitamin B12 Folate Arterial Blood Potassium Urine Color Ruba Urine Clarity Hazy Urine pH 5.0 Ur Specific [place] 1.038 H Urine Protein 2+ H Urine Glucose (UA) Normal Urine Ketones Trace Urine Blood 1+ H Urine Nitrate Negative Urine Bilirubin Negative Urine Urobilinogen Normal Ur Leukocyte Esterase Neg Urine WBC (Auto) 5 Urine RBC (Auto) 4 H Ur Squamous Epith Cells 2 Urine Bacteria Rare Hyaline Casts >20 H Peritoneal CEA Blood Type Antibody Screen Antibody Identification Critical Care Progress Note - Nutrition Nutrition: Nutrition Category Date Time Status Heart Healthy Diet [DIET] Diets 03/17/17 Dinner Active Attending/Attestation - Attestation I have personally seen and examined this patient.: Yes I have fully participated in the care of the patient.: Yes I have reviewed all pertinent clinical information: Yes Notes (Text): 03/28/17 17:30 Patient seen and examined in the intensive care unit. Case discussed with house staff in the morning rounds. Patient remained intubated on ventilatory support, 100% FiO2 Worsening chest x-ray noted On 2 pressors and remained hypotensive IV antibiotics Follow-up cult sensitivity IV albumin and start feeding Prognosis poor
--- NOTE | 2017-03-28 11:24 | CP.PCM.PN ---
<Mariela Baires DO - Last Filed: 03/28/17 13:21> Subjective - Date & Time of Evaluation Date of Evaluation: 03/28/17 Time of Evaluation: 13:21 - Subjective Subjective: Progress note for Dr. Neri Patient seen and examined. Patient intubated and on three pressors. ROS unobtainable due to clinical status. Objective - Vital Signs/Intake and Output Vital Signs (last 24 hours): Temp Pulse Resp BP Pulse Ox 97.5 F L 105 H 31 H 88/45 L 99 03/28/17 08:00 03/28/17 11:10 03/28/17 11:10 03/28/17 11:05 03/28/17 11:10 Intake and Output: 03/28/17 03/28/17 06:59 18:59 Intake Total 2268.5 2190.5 Output Total 200 Balance 2268.5 1990.5 - Medications Medications: Current Medications Albuterol/Ipratropium (Duoneb 3 Mg/0.5 Mg (3 Ml) Ud) 3 ml INH RQ4 [place] Last Admin: 03/28/17 08:12 Dose: 3 ml Aztreonam 2 gm/ Sodium (Chloride) 100 mls @ 200 mls/hr IVPB Q8H [place] Last Admin: 03/28/17 07:05 Dose: 200 mls/hr Vancomycin HCl 1 gm/ Sodium (Chloride) 250 mls @ 166.667 mls/hr IVPB Q12H [place] Last Admin: 03/28/17 10:20 Dose: 166.667 mls/hr Phenylephrine HCl 30 mg/ (Dextrose) 253 mls @ 10.12 mls/hr IV .Q24H PRN; Protocol; 20 MCG/MIN PRN Reason: TITRATE PER MD ORDER Last Admin: 03/28/17 08:17 Dose: 120 mcg/min, 60.72 mls/hr Midazolam HCl 100 mg/ Dextrose 100 mls @ 0.63 mls/hr IV .Q24H [place]; 0.02 MG/KG/ HR PRN Reason: Protocol Last Titration: 03/28/17 01:00 Dose: 0 mg/kg/hr, 0 mls/hr Sodium Bicarbonate 75 meq/ (Sodium Chloride) 1,000 mls @ 125 mls/hr IV .Q8H [place] Last Admin: 03/28/17 09:33 Dose: 125 mls/hr Norepinephrine Bitartrate 8 mg (/ Dextrose) 258 mls @ 7.74 mls/hr IV .Q24H PRN ; Protocol; 4 MCG/MIN PRN Reason: TITRATE PER MD ORDER Last Admin: 03/28/17 08:18 Dose: 15 mcg/min, 29.02 mls/hr Vasopressin 40 units/ Sodium (Chloride) 42 mls @ 0.63 mls/hr IV .Q24H [place]; 0.01 UNITS/MIN PRN Reason: Protocol Insulin Aspart (Novolog) 0 unit SC Q6 [place] PRN Reason: Protocol Morphine Sulfate (Morphine) 1 mg IVP Q4H PRN PRN Reason: Pain, moderate (4-7) Last Admin: 03/26/17 13:54 Dose: 1 mg Pantoprazole Sodium (Protonix Inj) 40 mg IVP Q12H [place] Last Admin: 03/28/17 09:39 Dose: 40 mg - Labs Labs: 03/28/17 04:41 03/28/17 04:41 PT 29.5 SECONDS (9.7-12.2) H* 03/28/17 04:41 INR 2.5 03/28/17 04:41 APTT 113 SECONDS (21-34) H* 03/28/17 04:41 - Constitutional Appears: Chronically Ill - Head Exam Head Exam: ATRAUMATIC - ENT Exam Additional comments: ETT in place - Respiratory Exam Respiratory Exam: Rhonchi Additional comments: intubated - Cardiovascular Exam Cardiovascular Exam: +S1, +S2 - GI/Abdominal Exam GI & Abdominal Exam: Soft Additional comments: ascites - Neurological Exam Additional comments: sedated - Skin Additional comments: multiple ecchymoses Assessment and Plan - Assessment and Plan (Free Text) Assessment: DIC fibrinogen 89 thrombocytopenia with platelets 5,000 recommend 1 bag cryoprecipitate transfuse plateletes to keep above 10,000 continued treatment of underlying infection Anemia ferritin 752, folate 4.9, B12?1000, retic 1.[address] Neri <Leobardo Neri - Last Filed: 03/29/17 18:33> Objective - Vital Signs/Intake and Output Vital Signs (last 24 hours): Temp Pulse Resp BP Pulse Ox 98.5 F 101 H 27 H 115/61 97 03/29/17 08:00 03/29/17 16:00 03/29/17 16:00 03/29/17 15:57 03/29/17 16:00 Intake and Output: 03/29/17 03/29/17 06:59 18:59 Intake Total 4134.8 3601.0 Output Total 300 205 Balance 3834.8 3396.0 - Medications Medications: Current Medications Albuterol/Ipratropium (Duoneb 3 Mg/0.5 Mg (3 Ml) Ud) 3 ml INH RQ4 [place] Last Admin: 03/29/17 14:25 Dose: 3 ml Hydrocortisone Sodium Succinate (Solu-Cortef) 100 mg IV Q8 [place] Last Admin: 03/29/17 14:39 Dose: 100 mg Aztreonam 2 gm/ Sodium (Chloride) 100 mls @ 200 mls/hr IVPB Q8H [place] Last Admin: 03/29/17 14:39 Dose: 200 mls/hr Vancomycin HCl 1 gm/ Sodium (Chloride) 250 mls @ 166.667 mls/hr IVPB Q12H [facility] Last Admin: 03/29/17 05:00 Dose: 166.667 mls/hr Phenylephrine HCl 30 mg/ (Dextrose) 253 mls @ 10.12 mls/hr IV .Q24H PRN; Protocol; 20 MCG/MIN PRN Reason: TITRATE PER MD ORDER Last Admin: 03/29/17 15:25 Dose: 80 mcg/min, 40.48 mls/hr Norepinephrine Bitartrate 8 mg (/ Dextrose) 258 mls @ 7.74 mls/hr IV .Q24H PRN ; Protocol; 4 MCG/MIN PRN Reason: TITRATE PER MD ORDER Last Admin: 03/29/17 13:17 Dose: 20 mcg/min, 38.7 mls/hr Vasopressin 40 units/ Sodium (Chloride) 42 mls @ 0.63 mls/hr IV .Q24H [facility]; 0.01 UNITS/MIN PRN Reason: Protocol Last Admin: 03/29/17 05:52 Dose: 0.04 units/min, 2.52 mls/hr Sodium Bicarbonate 150 meq/ (Dextrose) 1,000 mls @ 60 mls/hr IV .[id number] [facility] Last Admin: 03/29/17 15:59 Dose: 60 mls/hr Insulin Aspart (Novolog) 0 unit SC Q6 [facility] PRN Reason: Protocol Last Admin: 03/29/17 13:10 Dose: Not Given Midodrine (Proamatine) 5 mg PO Q8 [facility] Last Admin: 03/29/17 13:11 Dose: 5 mg Morphine Sulfate (Morphine) 1 mg IVP Q4H PRN PRN Reason: Pain, moderate (4-7) Last Admin: 03/26/17 13:54 Dose: 1 mg Pantoprazole Sodium (Protonix Inj) 40 mg IVP Q12H [facility] Last Admin: 03/29/17 09:19 Dose: 40 mg - Labs Labs: 03/29/17 06:26 03/29/17 06:26 PT 23.0 SECONDS (9.7-12.2) H D 03/29/17 11:09 INR 2.0 D 03/29/17 11:09 APTT 87 SECONDS (21-34) H D 03/29/17 11:09 Assessment and Plan (1) Thrombocytopenia Status: Acute (2) Coagulopathy Status: Acute (3) Anemia Status: Acute - Assessment and Plan (Free Text) Assessment: Pt seen and examined, agree with residents note. Thromobocytopenia and coagulopathy secondary to DIC, recommend cryopercipitate transfusion for goal fibrinogen > 100. Plt transfusion support. Cont. treatment of septic shock. Anemia of chronic disease.
[2017-03-28] MEDS ORDERED: Sodium Chloride 0.9% 1,000 ML IV ONE (13:48)
--- NOTE | 2017-03-28 14:35 | CP.PCM.PN ---
Subjective - Date & Time of Evaluation Date of Evaluation: 03/28/17 Time of Evaluation: 14:29 - Subjective Subjective: Follow up Nephrology Consultation: Assessment: critical acute kidney injury with oligoanuria, lactic acidosis, severe thrombocytopenia, septic shock respi failure with bilateral pneumonia Hyponatremia likely due to cirrhosis Hypomagnesemia, Anemia diabetes Mellitus hypertension, ex smoker, chronic etoh abuse and chronic pancreatitis UTI, back pain Plan no acute need for renal replacement therapy at this time but may need soon. avoid correction in serum Na >6-8 meq/24 hr. may give 3% hypertonic saline @15 ml/hr if serum Na <120. Monitor Input/Output, daily weights and renal function with basic metabolic panel Glycemic control Further work up/management as per primary team dose meds for GFR <10. Avoid fleets enema/magnesium based laxatives. Avoid nephrotoxins/NSAIDs/ iodinated contrast (unless needed emergently) Further work up for as per primary team Thanks for allowing me to participate in care of your patient. Will follow patient with you. Please call if any Qs. d/w ICU team Dr Jaya Flynn Office: [phone] Chief Complaint; unable Reason for consult: hyponatremia HPI: Pt is a 61 y/o F with hx of diabetes Mellitus hypertension, ex smoker, chronic etoh abuse and chronic pancreatitis initially presented with complaints of dysuria and being treated with antibiotics for UTI. she was getting D5/0.45% saline and noted to have decreased serum Na to 124 hence renal consult requested pt intubated and now on pressors Physical Examination: General Appearance: ill appearing, intubated orally Vitals reviewed and noted as below Head; Atraumatic, normocephalic ENT: no ulcers no thrush. Tongue is midline/dry. Oropharynx: no rash or ulcers. Neck; supple no lymphadenopathy, no thyromegaly or bruit Lungs: Increased respiratory rate/effort. Breath sounds bilateral with crackles and few wheeze Heart: Normal rate. s1s2 normal. No rub or gallop. Extremities: no edema. No varicose veins Neurological: Patient is restless Skin: Warm and dry. Normal turgor. No rash. Palpitation: Normal elasticity for age Abdomen: Abdomen is soft. Bowel sounds +. There is no abdominal tenderness, no guarding/rigidity no organomegaly has ascites Psych: unable MSK: no joint tenderness or swelling. Digits and nails normal, no deformity : kidney or bladder not palpable Labs/imaging/EKG reviewed. Past medical history, past surgical history, family history, social history, allergy reviewed and noted as below Family hx: no hx of CKD. Rest non-contributory recent echo: normal LVEF CT abdomen: chronic pancreatitis, liver disease, increased echogenic kidneys. has compression fractures in vertebra Objective - Vital Signs/Intake and Output Vital Signs (last 24 hours): Temp Pulse Resp BP Pulse Ox 97.4 F L 112 H 25 H 56/28 L 98 03/28/17 12:00 03/28/17 13:10 03/28/17 13:10 03/28/17 13:06 03/28/17 13:10 Intake and Output: 03/28/17 03/28/17 06:59 18:59 Intake Total 2268.5 3036.3 Output Total 200 Balance 2268.5 2836.3 - Medications Medications: Current Medications Albuterol/Ipratropium (Duoneb 3 Mg/0.5 Mg (3 Ml) Ud) 3 ml INH RQ4 [place] Last Admin: 03/28/17 11:34 Dose: 3 ml Aztreonam 2 gm/ Sodium (Chloride) 100 mls @ 200 mls/hr IVPB Q8H [place] Last Admin: 03/28/17 07:05 Dose: 200 mls/hr Vancomycin HCl 1 gm/ Sodium (Chloride) 250 mls @ 166.667 mls/hr IVPB Q12H [place] Last Admin: 03/28/17 10:20 Dose: 166.667 mls/hr Phenylephrine HCl 30 mg/ (Dextrose) 253 mls @ 10.12 mls/hr IV .Q24H PRN; Protocol; 20 MCG/MIN PRN Reason: TITRATE PER MD ORDER Last Admin: 03/28/17 11:57 Dose: 120 mcg/min, 60.72 mls/hr Midazolam HCl 100 mg/ Dextrose 100 mls @ 0.63 mls/hr IV .Q24H [place]; 0.02 MG/KG/ HR PRN Reason: Protocol Last Titration: 03/28/17 01:00 Dose: 0 mg/kg/hr, 0 mls/hr Sodium Bicarbonate 75 meq/ (Sodium Chloride) 1,000 mls @ 125 mls/hr IV .Q8H [place] Last Admin: 03/28/17 09:33 Dose: 125 mls/hr Norepinephrine Bitartrate 8 mg (/ Dextrose) 258 mls @ 7.74 mls/hr IV .Q24H PRN ; Protocol; 4 MCG/MIN PRN Reason: TITRATE PER MD ORDER Last Admin: 03/28/17 08:18 Dose: 15 mcg/min, 29.02 mls/hr Vasopressin 40 units/ Sodium (Chloride) 42 mls @ 0.63 mls/hr IV .Q24H [place]; 0.01 UNITS/MIN PRN Reason: Protocol Last Titration: 03/28/17 11:52 Dose: 0.04 units/min, 2.52 mls/hr Sodium Chloride (Sodium Chloride 0.9%) 1,000 mls @ 1,000 mls/hr IV .Q1H ONE Stop: 03/28/17 14:47 Last Admin: 03/28/17 13:57 Dose: 1,000 mls/hr Insulin Aspart (Novolog) 0 unit SC Q6 [place] PRN Reason: Protocol Last Admin: 03/28/17 11:59 Dose: Not Given Morphine Sulfate (Morphine) 1 mg IVP Q4H PRN PRN Reason: Pain, moderate (4-7) Last Admin: 03/26/17 13:54 Dose: 1 mg Pantoprazole Sodium (Protonix Inj) 40 mg IVP Q12H [facility] Last Admin: 03/28/17 09:39 Dose: 40 mg - Labs Labs: 03/28/17 04:41 03/28/17 04:41 PT 29.5 SECONDS (9.7-12.2) H* 03/28/17 04:41 INR 2.5 03/28/17 04:41 APTT 113 SECONDS (21-34) H* 03/28/17 04:41
--- NOTE | 2017-03-28 16:40 | CP.PCM.PN ---
Subjective - Date & Time of Evaluation Date of Evaluation: 03/28/17 Time of Evaluation: 07:00 - Subjective Subjective: intubated/sedated iv rx in progress Objective - Vital Signs/Intake and Output Vital Signs (last 24 hours): Temp Pulse Resp BP Pulse Ox 97.5 F L 111 H 25 H 98/63 L 96 03/28/17 15:56 03/28/17 15:56 03/28/17 15:56 03/28/17 15:56 03/28/17 15:04 Intake and Output: 03/28/17 03/28/17 06:59 18:59 Intake Total 2268.5 4903.2 Output Total 250 Balance 2268.5 4653.2 - Medications Medications: Current Medications Albuterol/Ipratropium (Duoneb 3 Mg/0.5 Mg (3 Ml) Ud) 3 ml INH RQ4 [place] Last Admin: 03/28/17 16:13 Dose: 3 ml Aztreonam 2 gm/ Sodium (Chloride) 100 mls @ 200 mls/hr IVPB Q8H [place] Last Admin: 03/28/17 14:44 Dose: 200 mls/hr Vancomycin HCl 1 gm/ Sodium (Chloride) 250 mls @ 166.667 mls/hr IVPB Q12H [place] Last Admin: 03/28/17 10:20 Dose: 166.667 mls/hr Phenylephrine HCl 30 mg/ (Dextrose) 253 mls @ 10.12 mls/hr IV .Q24H PRN; Protocol; 20 MCG/MIN PRN Reason: TITRATE PER MD ORDER Last Titration: 03/28/17 12:00 Dose: 180 mcg/min, 91.08 mls/hr Midazolam HCl 100 mg/ Dextrose 100 mls @ 0.63 mls/hr IV .Q24H [place]; 0.02 MG/KG/ HR PRN Reason: Protocol Last Titration: 03/28/17 01:00 Dose: 0 mg/kg/hr, 0 mls/hr Sodium Bicarbonate 75 meq/ (Sodium Chloride) 1,000 mls @ 125 mls/hr IV .Q8H [place] Last Admin: 03/28/17 09:33 Dose: 125 mls/hr Norepinephrine Bitartrate 8 mg (/ Dextrose) 258 mls @ 7.74 mls/hr IV .Q24H PRN ; Protocol; 4 MCG/MIN PRN Reason: TITRATE PER MD ORDER Last Admin: 03/28/17 14:40 Dose: 20 mcg/min, 38.7 mls/hr Vasopressin 40 units/ Sodium (Chloride) 42 mls @ 0.63 mls/hr IV .Q24H [place]; 0.01 UNITS/MIN PRN Reason: Protocol Last Titration: 03/28/17 11:52 Dose: 0.04 units/min, 2.52 mls/hr Insulin Aspart (Novolog) 0 unit SC Q6 [place] PRN Reason: Protocol Last Admin: 03/28/17 11:59 Dose: Not Given Morphine Sulfate (Morphine) 1 mg IVP Q4H PRN PRN Reason: Pain, moderate (4-7) Last Admin: 03/26/17 13:54 Dose: 1 mg Pantoprazole Sodium (Protonix Inj) 40 mg IVP Q12H [place] Last Admin: 03/28/17 09:39 Dose: 40 mg - Labs Labs: 03/28/17 04:41 03/28/17 04:41 PT 29.5 SECONDS (9.7-12.2) H* 03/28/17 04:41 INR 2.5 03/28/17 04:41 APTT 113 SECONDS (21-34) H* 03/28/17 04:41 - Constitutional Appears: Non-toxic, Cachectic, Chronically Ill - Head Exam Head Exam: NORMOCEPHALIC - Eye Exam Eye Exam: absent: Scleral icterus - ENT Exam ENT Exam: Mucous Membranes Dry - Neck Exam Neck Exam: absent: Lymphadenopathy - Respiratory Exam Respiratory Exam: Decreased Breath Sounds, Prolonged Expiratory Phase, Rales, Rhonchi - Cardiovascular Exam Cardiovascular Exam: REGULAR RHYTHM - GI/Abdominal Exam GI & Abdominal Exam: Distended, Soft - Rectal Exam Rectal Exam: Deferred - Exam Exam: NORMAL INSPECTION Assessment and Plan (1) Difficulty urinating Status: Acute (2) Difficulty walking Status: Acute (3) UTI (urinary tract infection) Status: Acute
[2017-03-28] MEDS ORDERED: Sodium Bicarbonate (8.4%) 50 Meq Syringe ONE (17:07)
[2017-03-28 17:12] LABS: RBC URINE 4 /hpf (0-3); URINE BACTERIA RARE (<OCC); URINE BILIRUBIN NEGATIVE (NEGATIVE); URINE BLOOD 1+ (NEGATIVE); URINE COLOR Amber (YELLOW); URINE GLUCOSE (UA) NORMAL (Normal); URINE HYALINE CAST >20 /lpf (0-2); URINE KETONE TRACE mg/dL (NEGATIVE); URINE LEUKOCYTE ESTERASE NEG Leu/uL (Negative); URINE PROTEIN 2+ mg/dL (NEGATIVE); URINE UROBILINOGEN NORMAL mg/dL (0.2-1.0); WBC URINE 5 /hpf (0-5)
[2017-03-29] MEDS: Albuterol-Ipratrop 3 mg / 0.5 (3 ml) UD INH SCH ×6 (00:14→20:26)
[2017-03-29] MEDS: Phenylephrine 30 MG in Dextrose 5% In Water 250 ML IV PRN ×7 (01:08→23:08)
[2017-03-29] MEDS: (Novolog) Insulin Aspart, Recombinant 100 u/ml 10 ml vial SC SCH ×4 (01:12→18:53)
[2017-03-29] MEDS: Sodium Bicarbonate 8.4% 75 MEQ in Sodium Chloride 0.45% 925 ML IV SCH ×2 (01:45→10:53)
[2017-03-29 05:57] LABS: ABG ALLEN TEST POS; ABG MECHANICAL RATE 16; ARTERIAL BLOOD GAS MODE PRVC; ARTERIAL BLOOD HGB O2 SAT 66.2 % (95.0-98.0); ATERIAL BLOOD GAS PEEP 5; CARBOXYHEMOGLOBIN 2.4 % (0.5-1.5); DRAW SITE RR; HHB 30.6 % (0.0-5.0); METHEMOGLOBIN 0.8 % (0.0-3.0)
[2017-03-29 06:33] LABS: EOS # 0.3 K/uL (0.0-0.7)
[2017-03-29 06:41] LABS: BASO % 0.1 % (0.0-2.0); EOS % 1.2 % (0.0-4.0); HEMATOCRIT 28.9 % (34.0-47.0); LYMPH % 3.8 % (20.0-40.0); MEAN CELL VOLUME 108.8 fL (81.0-99.0); MEAN CORPUSCULAR HEMOGLOBIN 35.5 pg (27.0-31.0); MEAN CORPUSCULAR HGB CONC 32.6 g/dL (33.0-37.0); MEAN PLATELET VOLUME 8.5 fL (7.2-11.7); MONO # 0.6 K/uL (0.0-0.8); MONO % 2.2 % (0.0-10.0); NRBC % 0.1 % (0.0-2.0); WHITE BLOOD COUNT 25.5 K/uL (4.8-10.8)
[2017-03-29 06:45] LABS: PLATELET COUNT 3 K/uL (130-400)
[2017-03-29 06:57] LABS: ALB/GLOB RATIO 0.8 (1.0-2.1); ALKALINE PHOSPHATASE 52 U/L (38-126); ALT/SGPT 75 U/L (9-52); AST/SGOT 77 U/L (14-36); BLOOD UREA NITROGEN 21 mg/dL (7-17); CALCIUM 6.3 mg/dl (8.6-10.4); CARBON DIOXIDE 18 mmol/L (22-30); CHLORIDE 90 mmol/L (98-107); GLUCOSE,RANDOM 67 mg/dL (65-105); MAGNESIUM 1.6 mg/dL (1.6-2.3); PHOSPHOROUS 3.4 mg/dL (2.5-4.5); POTASSIUM 3.8 mmol/L (3.6-5.2); SODIUM 123 mmol/L (132-148); TOTAL PROTEIN 4.2 g/dL (6.3-8.3)
[2017-03-29] MEDS: Aztreonam 2 GM in Sodium Chloride 0.9% 100 ML IVPB SCH ×2 (07:05→14:39)
[2017-03-29 07:06] LABS: GFR AFRICAN-AMERICAN > 60
[2017-03-29 08:25] LABS: NEUTROPHIL 51 % (50-75); TOTAL CELLS COUNTED 100
--- NOTE | 2017-03-29 08:31 | RAD ---
HISTORY: intubated COMPARISON: 03/28/2017 FINDINGS: LUNGS: Diffuse bilateral pulmonary opacity unchanged in extent compared to the prior examination, accounting for differences in radiographic technique. This is most pronounced at the right lung base. PLEURA: Probable small bilateral pleural effusion common not appreciated on prior examination. No pneumothorax. CARDIOVASCULAR: Normal heart size. Endotracheal tube, nasogastric tube and right internal jugular central venous catheter are all grossly unchanged in position. OSSEOUS STRUCTURES: No significant abnormalities. VISUALIZED UPPER ABDOMEN: Normal. OTHER FINDINGS: None. IMPRESSION: Diffuse bilateral pulmonary opacity, nonspecific. Rule out pneumonia versus pulmonary edema versus ARDS. .
--- NOTE | 2017-03-29 11:17 | CP.PCM.PN ---
<Mariela Baires DO - Last Filed: 03/29/17 16:10> Subjective - Date & Time of Evaluation Date of Evaluation: 03/29/17 Time of Evaluation: 11:15 - Subjective Subjective: Hematology progress note for Dr. Neri Patient seen and examined. Patient sedated and intubated, ROS unobtainable. Objective - Vital Signs/Intake and Output Vital Signs (last 24 hours): Temp Pulse Resp BP Pulse Ox 98.5 F 98 H 22 102/47 L 94 L 03/29/17 08:00 03/29/17 10:07 03/29/17 10:07 03/29/17 10:07 03/29/17 10:07 Intake and Output: 03/29/17 03/29/17 06:59 18:59 Intake Total 4134.8 1272.6 Output Total 300 90 Balance 3834.8 1182.6 - Medications Medications: Current Medications Albuterol/Ipratropium (Duoneb 3 Mg/0.5 Mg (3 Ml) Ud) 3 ml INH RQ4 [place] Last Admin: 03/29/17 08:24 Dose: 3 ml Hydrocortisone Sodium Succinate (Solu-Cortef) 100 mg IV Q8 [place] Last Admin: 03/29/17 10:48 Dose: 100 mg Aztreonam 2 gm/ Sodium (Chloride) 100 mls @ 200 mls/hr IVPB Q8H [place] Last Admin: 03/29/17 07:05 Dose: 200 mls/hr Vancomycin HCl 1 gm/ Sodium (Chloride) 250 mls @ 166.667 mls/hr IVPB Q12H [place] Last Admin: 03/29/17 05:00 Dose: 166.667 mls/hr Phenylephrine HCl 30 mg/ (Dextrose) 253 mls @ 10.12 mls/hr IV .Q24H PRN; Protocol; 20 MCG/MIN PRN Reason: TITRATE PER MD ORDER Last Admin: 03/29/17 09:22 Dose: 80 mcg/min, 40.48 mls/hr Sodium Bicarbonate 75 meq/ (Sodium Chloride) 1,000 mls @ 125 mls/hr IV .Q8H [place] Last Admin: 03/29/17 10:53 Dose: 125 mls/hr Norepinephrine Bitartrate 8 mg (/ Dextrose) 258 mls @ 7.74 mls/hr IV .Q24H PRN ; Protocol; 4 MCG/MIN PRN Reason: TITRATE PER MD ORDER Last Admin: 03/29/17 06:36 Dose: 20 mcg/min, 38.7 mls/hr Vasopressin 40 units/ Sodium (Chloride) 42 mls @ 0.63 mls/hr IV .Q24H [place]; 0.01 UNITS/MIN PRN Reason: Protocol Last Admin: 03/29/17 05:52 Dose: 0.04 units/min, 2.52 mls/hr Insulin Aspart (Novolog) 0 unit SC Q6 [place] PRN Reason: Protocol Last Admin: 03/29/17 06:36 Dose: Not Given Midodrine (Proamatine) 5 mg PO Q8 [place] Morphine Sulfate (Morphine) 1 mg IVP Q4H PRN PRN Reason: Pain, moderate (4-7) Last Admin: 03/26/17 13:54 Dose: 1 mg Pantoprazole Sodium (Protonix Inj) 40 mg IVP Q12H [place] Last Admin: 03/29/17 09:19 Dose: 40 mg - Labs Labs: 03/29/17 06:26 03/29/17 06:26 PT 29.5 SECONDS (9.7-12.2) H* 03/28/17 04:41 INR 2.5 03/28/17 04:41 APTT 113 SECONDS (21-34) H* 03/28/17 04:41 - Constitutional Appears: Chronically Ill - Head Exam Head Exam: ATRAUMATIC - ENT Exam Additional comments: ETT in place - Respiratory Exam Respiratory Exam: Decreased Breath Sounds, Rhonchi - Cardiovascular Exam Cardiovascular Exam: +S1, +S2 - GI/Abdominal Exam GI & Abdominal Exam: Soft Additional comments: ascites - Extremities Exam Additional comments: ecchymotic lesions noted non pitting edema - Neurological Exam Additional comments: sedated - Skin Additional comments: ecchymotic lesions present Assessment and Plan - Assessment and Plan (Free Text) Assessment: DIC 03/28: fibrinogen 89 03/29: fibrinogen 156 thrombocytopenia with platelets 3,000- recommend transfusing another unit platelets received 1 bag cryoprecipitate 03/28- recommend giving another bag if fibrinogen drops below 100 2 units platelets transfused 03/28 continued treatment of underlying infection Anemia ferritin 752, folate 4.9, B12 > 1000, retic 1.0 retic index 0.54 consistent with hypoproliferation likely due to chronic disease Plan as per Dr. Neri <Leobardo Neri - Last Filed: 03/29/17 18:34> Objective - Vital Signs/Intake and Output Vital Signs (last 24 hours): Temp Pulse Resp BP Pulse Ox 98.5 F 97 H 16 117/68 98 03/29/17 08:00 03/29/17 16:56 03/29/17 16:56 03/29/17 16:57 03/29/17 16:56 Intake and Output: 03/29/17 03/29/17 06:59 18:59 Intake Total 4134.8 3790.9 Output Total 300 205 Balance 3834.8 3585.9 - Medications Medications: Current Medications Albuterol/Ipratropium (Duoneb 3 Mg/0.5 Mg (3 Ml) Ud) 3 ml INH RQ4 [place] Last Admin: 03/29/17 16:39 Dose: 3 ml Hydrocortisone Sodium Succinate (Solu-Cortef) 100 mg IV Q8 [place] Last Admin: 03/29/17 14:39 Dose: 100 mg Phenylephrine HCl 30 mg/ (Dextrose) 253 mls @ 10.12 mls/hr IV .Q24H PRN; Protocol; 20 MCG/MIN PRN Reason: TITRATE PER MD ORDER Last Admin: 03/29/17 15:25 Dose: 80 mcg/min, 40.48 mls/hr Norepinephrine Bitartrate 8 mg (/ Dextrose) 258 mls @ 7.74 mls/hr IV .Q24H PRN ; Protocol; 4 MCG/MIN PRN Reason: TITRATE PER MD ORDER Last Admin: 03/29/17 13:17 Dose: 20 mcg/min, 38.7 mls/hr Vasopressin 40 units/ Sodium (Chloride) 42 mls @ 0.63 mls/hr IV .Q24H [place]; 0.01 UNITS/MIN PRN Reason: Protocol Last Admin: 03/29/17 05:52 Dose: 0.04 units/min, 2.52 mls/hr Sodium Bicarbonate 150 meq/ (Dextrose) 1,000 mls @ 60 mls/hr IV .[id number] [place] Last Admin: 03/29/17 15:59 Dose: 60 mls/hr Tigecycline 100 mg/ Sodium (Chloride) 100 mls @ 100 mls/hr IVPB ONCE ONE Stop: 03/29/17 19:59 Tigecycline 50 mg/ Sodium (Chloride) 100 mls @ 100 mls/hr IVPB Q12H [place] Insulin Aspart (Novolog) 0 unit SC Q6 [place] PRN Reason: Protocol Last Admin: 03/29/17 13:10 Dose: Not Given Midodrine (Proamatine) 5 mg PO Q8 [place] Last Admin: 03/29/17 13:11 Dose: 5 mg Morphine Sulfate (Morphine) 1 mg IVP Q4H PRN PRN Reason: Pain, moderate (4-7) Last Admin: 03/26/17 13:54 Dose: 1 mg Pantoprazole Sodium (Protonix Inj) 40 mg IVP Q12H [place] Last Admin: 03/29/17 09:19 Dose: 40 mg - Labs Labs: 03/29/17 06:26 03/29/17 06:26 PT 23.0 SECONDS (9.7-12.2) H D 03/29/17 11:09 INR 2.0 D 03/29/17 11:09 APTT 87 SECONDS (21-34) H D 03/29/17 11:09 Assessment and Plan (1) Thrombocytopenia Status: Acute (2) Coagulopathy Status: Acute (3) Anemia Status: Acute - Assessment and Plan (Free Text) Assessment: Pt seen and examined, agree with residents note. Pt in DIC from septic shock. s/p cryopercipitate with improvement in fibrinogen. Still severely thrombocytopenic, cont. transfusion support; goal plt > 10,000. Anemia of chronic disease.
--- NOTE | 2017-03-29 14:46 | CP.PCM.PN ---
Subjective - Date & Time of Evaluation Date of Evaluation: 03/29/17 Time of Evaluation: 14:43 - Subjective Subjective: Follow up Nephrology Consultation: Assessment: critical acute kidney injury with oliguria, lactic acidosis, severe thrombocytopenia, septic shock, ARDS respi failure with bilateral pneumonia Hyponatremia likely due to cirrhosis Hypomagnesemia, Anemia diabetes Mellitus hypertension, ex smoker, chronic etoh abuse and chronic pancreatitis UTI, back pain Plan no acute need for renal replacement therapy at this time but may need soon. avoid correction in serum Na >6-8 meq/24 hr. may give 3% hypertonic saline @15 ml/hr if serum Na <120. consider bicarb drip as 150 meq sodium bicarb in d5W @ 50-60 ml/hr to deliver more bicarb and less volume of IVF. Monitor Input/Output, daily weights and renal function with basic metabolic panel Glycemic control Further work up/management as per primary team dose meds for reduced GFR. Avoid fleets enema/magnesium based laxatives. Avoid nephrotoxins/NSAIDs/ iodinated contrast (unless needed emergently) Further work up for as per primary team Thanks for allowing me to participate in care of your patient. Will follow patient with you. Please call if any Qs. d/w ICU team Dr Jaya Flynn Office: [phone] Chief Complaint; unable Reason for consult: hyponatremia HPI: Pt is a 61 y/o F with hx of diabetes Mellitus hypertension, ex smoker, chronic etoh abuse and chronic pancreatitis initially presented with complaints of dysuria and being treated with antibiotics for UTI. she was getting D5/0.45% saline and noted to have decreased serum Na to 124 hence renal consult requested pt intubated and now on pressors Physical Examination: General Appearance: ill appearing, intubated orally , on ARDS protocol (PEEP 10 , FiO2 100%) Vitals reviewed and noted as below Head; Atraumatic, normocephalic ENT: no ulcers no thrush. Tongue is midline/dry. Oropharynx: no rash or ulcers. Neck; supple no lymphadenopathy, no thyromegaly or bruit Lungs: normal respiratory rate/effort. Breath sounds bilateral with crackles and few wheeze Heart: Normal rate. s1s2 normal. No rub or gallop. Extremities: 1-2+ edema. No varicose veins Neurological: Patient is sedated Skin: Warm and dry. Normal turgor. No rash. Palpitation: Normal elasticity for age Abdomen: Abdomen is soft. Bowel sounds +. There is no abdominal tenderness, no guarding/rigidity no organomegaly has ascites Psych: unable MSK: no joint tenderness or swelling. Digits and nails normal, no deformity : kidney or bladder not palpable. has duong + Labs/imaging/EKG reviewed. Past medical history, past surgical history, family history, social history, allergy reviewed and noted as below Family hx: no hx of CKD. Rest non-contributory recent echo: normal LVEF CT abdomen: chronic pancreatitis, liver disease, increased echogenic kidneys. has compression fractures in vertebra Objective - Vital Signs/Intake and Output Vital Signs (last 24 hours): Temp Pulse Resp BP Pulse Ox 98.5 F 103 H 26 H 126/77 96 03/29/17 08:00 03/29/17 14:06 03/29/17 14:06 03/29/17 14:06 03/29/17 14:06 Intake and Output: 03/29/17 03/29/17 06:59 18:59 Intake Total 4134.8 2803.2 Output Total 300 135 Balance 3834.8 2668.2 - Medications Medications: Current Medications Albuterol/Ipratropium (Duoneb 3 Mg/0.5 Mg (3 Ml) Ud) 3 ml INH RQ4 [facility] Last Admin: 03/29/17 14:25 Dose: 3 ml Hydrocortisone Sodium Succinate (Solu-Cortef) 100 mg IV Q8 [facility] Last Admin: 03/29/17 14:39 Dose: 100 mg Aztreonam 2 gm/ Sodium (Chloride) 100 mls @ 200 mls/hr IVPB Q8H [place] Last Admin: 03/29/17 14:39 Dose: 200 mls/hr Vancomycin HCl 1 gm/ Sodium (Chloride) 250 mls @ 166.667 mls/hr IVPB Q12H [place] Last Admin: 03/29/17 05:00 Dose: 166.667 mls/hr Phenylephrine HCl 30 mg/ (Dextrose) 253 mls @ 10.12 mls/hr IV .Q24H PRN; Protocol; 20 MCG/MIN PRN Reason: TITRATE PER MD ORDER Last Admin: 03/29/17 12:22 Dose: 80 mcg/min, 40.48 mls/hr Sodium Bicarbonate 75 meq/ (Sodium Chloride) 1,000 mls @ 125 mls/hr IV .Q8H [place] Last Admin: 03/29/17 10:53 Dose: 125 mls/hr Norepinephrine Bitartrate 8 mg (/ Dextrose) 258 mls @ 7.74 mls/hr IV .Q24H PRN ; Protocol; 4 MCG/MIN PRN Reason: TITRATE PER MD ORDER Last Admin: 03/29/17 13:17 Dose: 20 mcg/min, 38.7 mls/hr Vasopressin 40 units/ Sodium (Chloride) 42 mls @ 0.63 mls/hr IV .Q24H [place]; 0.01 UNITS/MIN PRN Reason: Protocol Last Admin: 03/29/17 05:52 Dose: 0.04 units/min, 2.52 mls/hr Insulin Aspart (Novolog) 0 unit SC Q6 [place] PRN Reason: Protocol Last Admin: 03/29/17 13:10 Dose: Not Given Midodrine (Proamatine) 5 mg PO Q8 [place] Last Admin: 03/29/17 13:11 Dose: 5 mg Morphine Sulfate (Morphine) 1 mg IVP Q4H PRN PRN Reason: Pain, moderate (4-7) Last Admin: 03/26/17 13:54 Dose: 1 mg Pantoprazole Sodium (Protonix Inj) 40 mg IVP Q12H [place] Last Admin: 03/29/17 09:19 Dose: 40 mg - Labs Labs: 03/29/17 06:26 03/29/17 06:26 PT 23.0 SECONDS (9.7-12.2) H D 03/29/17 11:09 INR 2.0 D 03/29/17 11:09 APTT 87 SECONDS (21-34) H D 03/29/17 11:09
[2017-03-29] MEDS: Sodium Bicarbonate 8.4% 150 MEQ in Dextrose 5% In Water 850 ML IV SCH (15:59)
--- NOTE | 2017-03-29 16:58 | CP.CCUPN ---
Addendum entered and electronically signed by Mic Sanches DO 03/29/17 18:07 : Luis Alberto (Boyfriend/"" of 20 years) - [phone] Nhan ([id number]) - [phone] Shiva (Nephew) - [phone] Original Note: <Mic Sanches - Last Filed: 03/29/17 16:56> CCU Subjective - Physician Review Subjective (Free Text): PGY1 ICU Progress Note for Patient seen and examined at bedside this morning. Patient intubated. ROS unobtainable. CCU Objective - Vital Signs / Intake & Output Vital Signs (Last 4 hours): Vital Signs Pulse Resp BP Pulse Ox 03/29/17 16:00 101 H 27 H 97 03/29/17 15:57 98 H 25 H 115/61 96 03/29/17 15:25 129/75 03/29/17 15:06 104 H 27 H 129/75 96 03/29/17 15:00 103 H 28 H 97 03/29/17 14:06 103 H 26 H 126/77 96 03/29/17 14:00 103 H 25 H 99 03/29/17 13:17 118/69 03/29/17 13:06 101 H 26 H 118/69 98 03/29/17 13:00 100 H 23 98 Intake and Output (Last 8hrs): Intake & Output 03/29/17 03/29/17 03/29/17 06:59 14:59 22:59 Intake Total 2472.2 2903.2 697.8 Output Total 225 155 50 Balance 2247.2 2748.2 647.8 Weight 75 lb 0.1 oz Intake: IV 677.0 764 253 Intake, IV Amount 1795.2 2139.2 444.8 RIJ Distal 1 470 720 180 RIJ Distal 2 19.2 19.2 4.8 RIJ Distal 3 300.0 300.0 75.0 Right Medial IJ 2 100 Right Medial Port 6 0 Internal Jugular Right Proximal IJ 2 1000 1000 185 Output: Urine 225 155 50 Urethral (Gusman) 225 155 50 - Physical Exam Mouth: Positive for: Other (intubated) Respiratory/Chest: Positive for: Rales, Rhonchi, Other (intubated). Negative for: Accessory Muscle Use Abdomen: Positive for: Other (+ fluid wave (ascites)) Upper Extremity: Positive for: Other (multiple areas of ecchymosis) Lower Extremity: Positive for: Other (ecchymosis) Neurological: Positive for: Other (intubated) Skin: Positive for: Warm, Dry Psychiatric: Positive for: Other (sedated. intubated) - Medications Active Medications: Active Medications Generic Name Dose Route Start Last Admin Trade Name Freq PRN Reason Stop Dose Admin Albuterol/Ipratropium 3 ml 03/25/17 20:30 03/29/17 16:39 Duoneb 3 Mg/0.5 Mg (3 Ml) Ud INH 3 ml RQ4 [place] Administration Hydrocortisone Sodium Succinate 100 mg 03/29/17 09:45 03/29/17 14:39 Solu-Cortef IV 100 mg Q8 [place] Administration Aztreonam 2 gm/ Sodium 100 mls @ 200 mls/hr 03/27/17 15:00 03/29/17 14:39 Chloride IVPB 200 mls/hr Q8H [place] Administration Vancomycin HCl 1 gm/ Sodium 250 mls @ 166.667 mls/hr 03/27/17 17:00 03/29/17 05:00 Chloride IVPB 166.667 mls/hr Q12H [place] Administration Phenylephrine HCl 30 mg/ 253 mls @ 10.12 mls/hr 03/27/17 19:57 03/29/17 15:25 Dextrose IV 80 mcg/min .Q24H PRN 40.48 mls/hr TITRATE PER MD ORDER Administration Protocol 20 MCG/MIN Norepinephrine Bitartrate 8 mg 258 mls @ 7.74 mls/hr 03/27/17 23:58 03/29/17 13:17 / Dextrose IV 20 mcg/min .Q24H PRN 38.7 mls/hr TITRATE PER MD ORDER Administration Protocol 4 MCG/MIN Vasopressin 40 units/ Sodium 42 mls @ 0.63 mls/hr 03/28/17 11:30 03/29/17 05: 52 Chloride IV 0.04 units/min .Q24H [place] 2.52 mls/hr Protocol Administration 0.01 UNITS/MIN Sodium Bicarbonate 150 meq/ 1,000 mls @ 60 mls/hr 03/29/17 16:00 03/29/17 15: 59 Dextrose IV 60 mls/hr .[id number] [place] Administration Insulin Aspart 0 unit 03/28/17 12:00 03/29/17 13:10 Novolog SC Not Given Q6 [facility] Protocol Midodrine 5 mg 03/29/17 14:00 03/29/17 13:11 Proamatine PO 5 mg Q8 [place] Administration Morphine Sulfate 1 mg 03/23/17 18:26 03/26/17 13:54 Morphine IVP 1 mg Q4H PRN Administration Pain, moderate (4-7) Pantoprazole Sodium 40 mg 03/28/17 09:30 03/29/17 09:19 Protonix Inj IVP 40 mg Q12H [place] Administration - Patient Studies Lab Studies: Microbiology Studies 03/27/17 11:25 Blood Culture - Preliminary Blood-Venous NO GROWTH AFTER 48 HOURS 03/27/17 11:05 Blood Culture - Preliminary Blood-Venous NO GROWTH AFTER 48 HOURS 03/28/17 16:57 Urine Culture - Final Urine,Catheterized No Growth (<1,000 CFU/ML) 03/27/17 20:01 MRSA Culture (Admit) - Final Naris MRSA NOT DETECTED Lab Studies 03/29/17 03/29/17 03/29/17 Range/Units 11:57 11:09 06:32 WBC (4.8-10.8) K/uL RBC (3.80-5.20) Mil/uL Hgb (11.0-16.0) g/dL Hct (34.0-47.0) % MCV (81.0-99.0) fL MCH (27.0-31.0) pg MCHC (33.0-37.0) g/dL RDW (11.5-14.5) % Plt Count (130-400) K/uL MPV (7.2-11.7) fL Neut % (Auto) (50.0-75.0) % Lymph % (Auto) (20.0-40.0) % [place] % (Auto) (0.0-10.0) % Eos % (Auto) (0.0-4.0) % Baso % (Auto) (0.0-2.0) % Neut # (1.8-7.0) K/uL Lymph # (1.0-4.3) K/uL [place] # (0.0-0.8) K/uL Eos # (0.0-0.7) K/uL Baso # (0.0-0.2) K/uL Neutrophils % (Manual) (50-75) % Band Neutrophils % (0-2) % Lymphocytes % (Manual) (20-40) % Monocytes % (Manual) (0-10) % Platelet Estimate (NORMAL) Polychromasia Hypochromasia (manual) Anisocytosis (manual) Macrocytosis (manual) PT 23.0 H D (9.7-12.2) SECONDS INR 2.0 D APTT 87 H D (21-34) SECONDS Fibrinogen 156 L (200-400) mg/dL Puncture Site pCO2 (35-45) mm/Hg pO2 (80-100) mm/Hg HCO3 (21-28) mmol/L ABG pH (7.35-7.45) ABG Total CO2 (22-28) mmol/L ABG O2 Saturation (95-98) % ABG Base Excess (-2.0-3.0) mmol/L ABG Hemoglobin (11.7-17.4) g/dL ABG Carboxyhemoglobin (0.5-1.5) % POC ABG HHb (Measured) (0.0-5.0) % ABG Methemoglobin (0.0-3.0) % Crescencio Test A-a O2 Difference mm/Hg Respiratory Index Hgb O2 Saturation (95.0-98.0) % Vent Mode Mechanical Rate FiO2 % Tidal Volume PEEP Crit Value Called To Crit Value Called By Crit Value Read Back Blood Gas Notified Time Sodium (132-148) mmol/L Potassium (3.6-5.2) mmol/L Chloride (98-107) mmol/L Carbon Dioxide (22-30) mmol/L Anion Gap (10-20) BUN (7-17) mg/dL Creatinine (0.7-1.2) mg/dL Est GFR ( Amer) Est GFR (Non-Af Amer) POC Glucose (mg/dL) 131 H 93 (65-110) mg/dL Random Glucose (65-105) mg/dL Calcium (8.6-10.4) mg/dl Phosphorus (2.5-4.5) mg/dL Magnesium (1.6-2.3) mg/dL Total Bilirubin (0.2-1.3) mg/dL AST (14-36) U/L ALT (9-52) U/L Alkaline Phosphatase (38-126) U/L Total Protein (6.3-8.3) g/dL Albumin (3.5-5.0) g/dL Globulin (2.2-3.9) gm/dL Albumin/Globulin Ratio (1.0-2.1) Urine Color (YELLOW) Urine Clarity (Clear) Urine pH (5.0-8.0) Ur Specific [place] (1.003-1.030) Urine Protein (NEGATIVE) mg/dL Urine Glucose (UA) (Normal) mg/dL Urine Ketones (NEGATIVE) mg/dL Urine Blood (NEGATIVE) Urine Nitrate (NEGATIVE) Urine Bilirubin (NEGATIVE) Urine Urobilinogen (0.2-1.0) mg/dL Ur Leukocyte Esterase (Negative) Glory/uL Urine WBC (Auto) (0-5) /hpf Urine RBC (Auto) (0-3) /hpf Ur Squamous Epith Cells (0-5) /hpf Urine Bacteria (<OCC) Hyaline Casts (0-2) /lpf Vancomycin Trough (5.0-10.0) ug/mL 03/29/17 03/29/17 03/29/17 Range/Units 06:26 06:26 06:26 WBC 25.5 H (4.8-10.8) K/uL RBC 2.66 L (3.80-5.20) Mil/uL Hgb 9.4 L (11.0-16.0) g/dL Hct 28.9 L (34.0-47.0) % MCV 108.8 H (81.0-99.0) fL MCH 35.5 H (27.0-31.0) pg MCHC 32.6 L (33.0-37.0) g/dL RDW 19.0 H (11.5-14.5) % Plt Count 3 L* (130-400) K/uL MPV 8.5 (7.2-11.7) fL Neut % (Auto) 92.7 H (50.0-75.0) % Lymph % (Auto) 3.8 L (20.0-40.0) % [place] % (Auto) 2.2 (0.0-10.0) % Eos % (Auto) 1.2 (0.0-4.0) % Baso % (Auto) 0.1 (0.0-2.0) % Neut # 23.6 H (1.8-7.0) K/uL Lymph # 1.0 (1.0-4.3) K/uL [place] # 0.6 (0.0-0.8) K/uL Eos # 0.3 (0.0-0.7) K/uL Baso # 0.0 (0.0-0.2) K/uL Neutrophils % (Manual) 51 (50-75) % Band Neutrophils % 36 H* (0-2) % Lymphocytes % (Manual) 5 L (20-40) % Monocytes % (Manual) 8 (0-10) % Platelet Estimate Markedly decreased L (NORMAL) Polychromasia Slight Hypochromasia (manual) Slight Anisocytosis (manual) Slight Macrocytosis (manual) Moderate PT (9.7-12.2) SECONDS INR APTT (21-34) SECONDS Fibrinogen (200-400) mg/dL Puncture Site pCO2 (35-45) mm/Hg pO2 (80-100) mm/Hg HCO3 (21-28) mmol/L ABG pH (7.35-7.45) ABG Total CO2 (22-28) mmol/L ABG O2 Saturation (95-98) % ABG Base Excess (-2.0-3.0) mmol/L ABG Hemoglobin (11.7-17.4) g/dL ABG Carboxyhemoglobin (0.5-1.5) % POC ABG HHb (Measured) (0.0-5.0) % ABG Methemoglobin (0.0-3.0) % Crescencio Test A-a O2 Difference mm/Hg Respiratory Index Hgb O2 Saturation (95.0-98.0) % Vent Mode Mechanical Rate FiO2 % Tidal Volume PEEP Crit Value Called To Crit Value Called By Crit Value Read Back Blood Gas Notified Time Sodium 123 L (132-148) mmol/L Potassium 3.8 (3.6-5.2) mmol/L Chloride 90 L (98-107) mmol/L Carbon Dioxide 18 L (22-30) mmol/L Anion Gap 19 (10-20) BUN 21 H (7-17) mg/dL Creatinine 1.1 (0.7-1.2) mg/dL Est GFR ( Amer) > 60 Est GFR (Non-Af Amer) 51 POC Glucose (mg/dL) (65-110) mg/dL Random Glucose 67 (65-105) mg/dL Calcium 6.3 L (8.6-10.4) mg/dl Phosphorus 3.4 (2.5-4.5) mg/dL Magnesium 1.6 (1.6-2.3) mg/dL Total Bilirubin 3.0 H (0.2-1.3) mg/dL AST 77 H D (14-36) U/L ALT 75 H (9-52) U/L Alkaline Phosphatase 52 (38-126) U/L Total Protein 4.2 L (6.3-8.3) g/dL Albumin 1.8 L (3.5-5.0) g/dL Globulin 2.4 (2.2-3.9) gm/dL Albumin/Globulin Ratio 0.8 L (1.0-2.1) Urine Color (YELLOW) Urine Clarity (Clear) Urine pH (5.0-8.0) Ur Specific [place] (1.003-1.030) Urine Protein (NEGATIVE) mg/dL Urine Glucose (UA) (Normal) mg/dL Urine Ketones (NEGATIVE) mg/dL Urine Blood (NEGATIVE) Urine Nitrate (NEGATIVE) Urine Bilirubin (NEGATIVE) Urine Urobilinogen (0.2-1.0) mg/dL Ur Leukocyte Esterase (Negative) Glory/uL Urine WBC (Auto) (0-5) /hpf Urine RBC (Auto) (0-3) /hpf Ur Squamous Epith Cells (0-5) /hpf Urine Bacteria (<OCC) Hyaline Casts (0-2) /lpf Vancomycin Trough 21.6 H (5.0-10.0) ug/mL 03/29/17 03/28/17 03/28/17 Range/Units 05:27 23:36 18:05 WBC (4.8-10.8) K/uL RBC (3.80-5.20) Mil/uL Hgb (11.0-16.0) g/dL Hct (34.0-47.0) % MCV (81.0-99.0) fL MCH (27.0-31.0) pg MCHC (33.0-37.0) g/dL RDW (11.5-14.5) % Plt Count (130-400) K/uL MPV (7.2-11.7) fL Neut % (Auto) (50.0-75.0) % Lymph % (Auto) (20.0-40.0) % [place] % (Auto) (0.0-10.0) % Eos % (Auto) (0.0-4.0) % Baso % (Auto) (0.0-2.0) % Neut # (1.8-7.0) K/uL Lymph # (1.0-4.3) K/uL [place] # (0.0-0.8) K/uL Eos # (0.0-0.7) K/uL Baso # (0.0-0.2) K/uL Neutrophils % (Manual) (50-75) % Band Neutrophils % (0-2) % Lymphocytes % (Manual) (20-40) % Monocytes % (Manual) (0-10) % Platelet Estimate (NORMAL) Polychromasia Hypochromasia (manual) Anisocytosis (manual) Macrocytosis (manual) PT (9.7-12.2) SECONDS INR APTT (21-34) SECONDS Fibrinogen (200-400) mg/dL Puncture Site Rr pCO2 54 H (35-45) mm/Hg pO2 36 L* (80-100) mm/Hg HCO3 17.7 L (21-28) mmol/L ABG pH 7.17 L* (7.35-7.45) ABG Total CO2 21.4 L (22-28) mmol/L ABG O2 Saturation 68.4 L (95-98) % ABG Base Excess -8.6 L (-2.0-3.0) mmol/L ABG Hemoglobin 9.2 L (11.7-17.4) g/dL ABG Carboxyhemoglobin 2.4 H (0.5-1.5) % POC ABG HHb (Measured) 30.6 H (0.0-5.0) % ABG Methemoglobin 0.8 (0.0-3.0) % Crescencio Test Pos A-a O2 Difference 610.0 mm/Hg Respiratory Index 16.9 Hgb O2 Saturation 66.2 L (95.0-98.0) % Vent Mode Prvc Mechanical Rate 16 FiO2 100.0 % Tidal Volume 400 PEEP 5 Crit Value Called To Hoang al rn Crit Value Called By Holli dressage instructor Crit Value Read Back Y Blood Gas Notified Time 557 Sodium (132-148) mmol/L Potassium (3.6-5.2) mmol/L Chloride (98-107) mmol/L Carbon Dioxide (22-30) mmol/L Anion Gap (10-20) BUN (7-17) mg/dL Creatinine (0.7-1.2) mg/dL Est GFR ( Amer) Est GFR (Non-Af Amer) POC Glucose (mg/dL) 153 H 143 H (65-110) mg/dL Random Glucose (65-105) mg/dL Calcium (8.6-10.4) mg/dl Phosphorus (2.5-4.5) mg/dL Magnesium (1.6-2.3) mg/dL Total Bilirubin (0.2-1.3) mg/dL AST (14-36) U/L ALT (9-52) U/L Alkaline Phosphatase (38-126) U/L Total Protein (6.3-8.3) g/dL Albumin (3.5-5.0) g/dL Globulin (2.2-3.9) gm/dL Albumin/Globulin Ratio (1.0-2.1) Urine Color (YELLOW) Urine Clarity (Clear) Urine pH (5.0-8.0) Ur Specific [place] (1.003-1.030) Urine Protein (NEGATIVE) mg/dL Urine Glucose (UA) (Normal) mg/dL Urine Ketones (NEGATIVE) mg/dL Urine Blood (NEGATIVE) Urine Nitrate (NEGATIVE) Urine Bilirubin (NEGATIVE) Urine Urobilinogen (0.2-1.0) mg/dL Ur Leukocyte Esterase (Negative) Glory/uL Urine WBC (Auto) (0-5) /hpf Urine RBC (Auto) (0-3) /hpf Ur Squamous Epith Cells (0-5) /hpf Urine Bacteria (<OCC) Hyaline Casts (0-2) /lpf Vancomycin Trough (5.0-10.0) ug/mL 03/28/17 Range/Units 17:02 WBC (4.8-10.8) K/uL RBC (3.80-5.20) Mil/uL Hgb (11.0-16.0) g/dL Hct (34.0-47.0) % MCV (81.0-99.0) fL MCH (27.0-31.0) pg MCHC (33.0-37.0) g/dL RDW (11.5-14.5) % Plt Count (130-400) K/uL MPV (7.2-11.7) fL Neut % (Auto) (50.0-75.0) % Lymph % (Auto) (20.0-40.0) % [place] % (Auto) (0.0-10.0) % Eos % (Auto) (0.0-4.0) % Baso % (Auto) (0.0-2.0) % Neut # (1.8-7.0) K/uL Lymph # (1.0-4.3) K/uL [place] # (0.0-0.8) K/uL Eos # (0.0-0.7) K/uL Baso # (0.0-0.2) K/uL Neutrophils % (Manual) (50-75) % Band Neutrophils % (0-2) % Lymphocytes % (Manual) (20-40) % Monocytes % (Manual) (0-10) % Platelet Estimate (NORMAL) Polychromasia Hypochromasia (manual) Anisocytosis (manual) Macrocytosis (manual) PT (9.7-12.2) SECONDS INR APTT (21-34) SECONDS Fibrinogen (200-400) mg/dL Puncture Site pCO2 (35-45) mm/Hg pO2 (80-100) mm/Hg HCO3 (21-28) mmol/L ABG pH (7.35-7.45) ABG Total CO2 (22-28) mmol/L ABG O2 Saturation (95-98) % ABG Base Excess (-2.0-3.0) mmol/L ABG Hemoglobin (11.7-17.4) g/dL ABG Carboxyhemoglobin (0.5-1.5) % POC ABG HHb (Measured) (0.0-5.0) % ABG Methemoglobin (0.0-3.0) % Crescencio Test A-a O2 Difference mm/Hg Respiratory Index Hgb O2 Saturation (95.0-98.0) % Vent Mode Mechanical Rate FiO2 % Tidal Volume PEEP Crit Value Called To Crit Value Called By Crit Value Read Back Blood Gas Notified Time Sodium (132-148) mmol/L Potassium (3.6-5.2) mmol/L Chloride (98-107) mmol/L Carbon Dioxide (22-30) mmol/L Anion Gap (10-20) BUN (7-17) mg/dL Creatinine (0.7-1.2) mg/dL Est GFR ( Amer) Est GFR (Non-Af Amer) POC Glucose (mg/dL) (65-110) mg/dL Random Glucose (65-105) mg/dL Calcium (8.6-10.4) mg/dl Phosphorus (2.5-4.5) mg/dL Magnesium (1.6-2.3) mg/dL Total Bilirubin (0.2-1.3) mg/dL AST (14-36) U/L ALT (9-52) U/L Alkaline Phosphatase (38-126) U/L Total Protein (6.3-8.3) g/dL Albumin (3.5-5.0) g/dL Globulin (2.2-3.9) gm/dL Albumin/Globulin Ratio (1.0-2.1) Urine Color Ruba (YELLOW) Urine Clarity Hazy (Clear) Urine pH 5.0 (5.0-8.0) Ur Specific [place] 1.038 H (1.003-1.030) Urine Protein 2+ H (NEGATIVE) mg/dL Urine Glucose (UA) Normal (Normal) mg/dL Urine Ketones Trace (NEGATIVE) mg/dL Urine Blood 1+ H (NEGATIVE) Urine Nitrate Negative (NEGATIVE) Urine Bilirubin Negative (NEGATIVE) Urine Urobilinogen Normal (0.2-1.0) mg/dL Ur Leukocyte Esterase Neg (Negative) Glory/uL Urine WBC (Auto) 5 (0-5) /hpf Urine RBC (Auto) 4 H (0-3) /hpf Ur Squamous Epith Cells 2 (0-5) /hpf Urine Bacteria Rare (<OCC) Hyaline Casts >20 H (0-2) /lpf Vancomycin Trough (5.0-10.0) ug/mL Laboratory Results - last 24 hr 03/28/17 03/28/17 03/28/17 17:02 18:05 23:36 WBC RBC Hgb Hct MCV MCH MCHC RDW Plt Count MPV Neut % (Auto) Lymph % (Auto) [place] % (Auto) Eos % (Auto) Baso % (Auto) Neut # Lymph # [place] # Eos # Baso # Neutrophils % (Manual) Band Neutrophils % Lymphocytes % (Manual) Monocytes % (Manual) Platelet Estimate Polychromasia Hypochromasia (manual) Anisocytosis (manual) Macrocytosis (manual) PT INR APTT Fibrinogen Puncture Site pCO2 pO2 HCO3 ABG pH ABG Total CO2 ABG O2 Saturation ABG Base Excess ABG Hemoglobin ABG Carboxyhemoglobin POC ABG HHb (Measured) ABG Methemoglobin Crescencio Test A-a O2 Difference Respiratory Index Hgb O2 Saturation Vent Mode Mechanical Rate FiO2 Tidal Volume PEEP Crit Value Called To Crit Value Called By Crit Value Read Back Blood Gas Notified Time Sodium Potassium Chloride Carbon Dioxide Anion Gap BUN Creatinine Est GFR ( Amer) Est GFR (Non-Af Amer) POC Glucose (mg/dL) 143 H 153 H Random Glucose Calcium Phosphorus Magnesium Total Bilirubin AST ALT Alkaline Phosphatase Total Protein Albumin Globulin Albumin/Globulin Ratio Urine Color Ruba Urine Clarity Hazy Urine pH 5.0 Ur Specific [place] 1.038 H Urine Protein 2+ H Urine Glucose (UA) Normal Urine Ketones Trace Urine Blood 1+ H Urine Nitrate Negative Urine Bilirubin Negative Urine Urobilinogen Normal Ur Leukocyte Esterase Neg Urine WBC (Auto) 5 Urine RBC (Auto) 4 H Ur Squamous Epith Cells 2 Urine Bacteria Rare Hyaline Casts >20 H Vancomycin Trough 03/29/17 03/29/17 03/29/17 05:27 06:26 06:26 WBC 25.5 H RBC 2.66 L Hgb 9.4 L Hct 28.9 L MCV 108.8 H MCH 35.5 H MCHC 32.6 L RDW 19.0 H Plt Count 3 L* MPV 8.5 Neut % (Auto) 92.7 H Lymph % (Auto) 3.8 L [place] % (Auto) 2.2 Eos % (Auto) 1.2 Baso % (Auto) 0.1 Neut # 23.6 H Lymph # 1.0 [place] # 0.6 Eos # 0.3 Baso # 0.0 Neutrophils % (Manual) 51 Band Neutrophils % 36 H* Lymphocytes % (Manual) 5 L Monocytes % (Manual) 8 Platelet Estimate Markedly decreased L Polychromasia Slight Hypochromasia (manual) Slight Anisocytosis (manual) Slight Macrocytosis (manual) Moderate PT INR APTT Fibrinogen Puncture Site Rr pCO2 54 H pO2 36 L* HCO3 17.7 L ABG pH 7.17 L* ABG Total CO2 21.4 L ABG O2 Saturation 68.4 L ABG Base Excess -8.6 L ABG Hemoglobin 9.2 L ABG Carboxyhemoglobin 2.4 H POC ABG HHb (Measured) 30.6 H ABG Methemoglobin 0.8 Crescencio Test Pos A-a O2 Difference 610.0 Respiratory Index 16.9 Hgb O2 Saturation 66.2 L Vent Mode Prvc Mechanical Rate 16 FiO2 100.0 Tidal Volume 400 PEEP 5 Crit Value Called To Hoang al rn Crit Value Called By Holli dressage instructor Crit Value Read Back Y Blood Gas Notified Time 557 Sodium Potassium Chloride Carbon Dioxide Anion Gap BUN Creatinine Est GFR ( Amer) Est GFR (Non-Af Amer) POC Glucose (mg/dL) Random Glucose Calcium Phosphorus Magnesium Total Bilirubin AST ALT Alkaline Phosphatase Total Protein Albumin Globulin Albumin/Globulin Ratio Urine Color Urine Clarity Urine pH Ur Specific [place] Urine Protein Urine Glucose (UA) Urine Ketones Urine Blood Urine Nitrate Urine Bilirubin Urine Urobilinogen Ur Leukocyte Esterase Urine WBC (Auto) Urine RBC (Auto) Ur Squamous Epith Cells Urine Bacteria Hyaline Casts Vancomycin Trough 21.6 H 03/29/17 03/29/17 03/29/17 06:26 06:32 11:09 WBC RBC Hgb Hct MCV MCH MCHC RDW Plt Count MPV Neut % (Auto) Lymph % (Auto) [place] % (Auto) Eos % (Auto) Baso % (Auto) Neut # Lymph # [place] # Eos # Baso # Neutrophils % (Manual) Band Neutrophils % Lymphocytes % (Manual) Monocytes % (Manual) Platelet Estimate Polychromasia Hypochromasia (manual) Anisocytosis (manual) Macrocytosis (manual) PT 23.0 H D INR 2.0 D APTT 87 H D Fibrinogen 156 L Puncture Site pCO2 pO2 HCO3 ABG pH ABG Total CO2 ABG O2 Saturation ABG Base Excess ABG Hemoglobin ABG Carboxyhemoglobin POC ABG HHb (Measured) ABG Methemoglobin Crescencio Test A-a O2 Difference Respiratory Index Hgb O2 Saturation Vent Mode Mechanical Rate FiO2 Tidal Volume PEEP Crit Value Called To Crit Value Called By Crit Value Read Back Blood Gas Notified Time Sodium 123 L Potassium 3.8 Chloride 90 L Carbon Dioxide 18 L Anion Gap 19 BUN 21 H Creatinine 1.1 Est GFR ( Amer) > 60 Est GFR (Non-Af Amer) 51 POC Glucose (mg/dL) 93 Random Glucose 67 Calcium 6.3 L Phosphorus 3.4 Magnesium 1.6 Total Bilirubin 3.0 H AST 77 H D ALT 75 H Alkaline Phosphatase 52 Total Protein 4.2 L Albumin 1.8 L Globulin 2.4 Albumin/Globulin Ratio 0.8 L Urine Color Urine Clarity Urine pH Ur Specific [place] Urine Protein Urine Glucose (UA) Urine Ketones Urine Blood Urine Nitrate Urine Bilirubin Urine Urobilinogen Ur Leukocyte Esterase Urine WBC (Auto) Urine RBC (Auto) Ur Squamous Epith Cells Urine Bacteria Hyaline Casts Vancomycin Trough 03/29/17 11:57 WBC RBC Hgb Hct MCV MCH MCHC RDW Plt Count MPV Neut % (Auto) Lymph % (Auto) [place] % (Auto) Eos % (Auto) Baso % (Auto) Neut # Lymph # [place] # Eos # Baso # Neutrophils % (Manual) Band Neutrophils % Lymphocytes % (Manual) Monocytes % (Manual) Platelet Estimate Polychromasia Hypochromasia (manual) Anisocytosis (manual) Macrocytosis (manual) PT INR APTT Fibrinogen Puncture Site pCO2 pO2 HCO3 ABG pH ABG Total CO2 ABG O2 Saturation ABG Base Excess ABG Hemoglobin ABG Carboxyhemoglobin POC ABG HHb (Measured) ABG Methemoglobin Crescencio Test A-a O2 Difference Respiratory Index Hgb O2 Saturation Vent Mode Mechanical Rate FiO2 Tidal Volume PEEP Crit Value Called To Crit Value Called By Crit Value Read Back Blood Gas Notified Time Sodium Potassium Chloride Carbon Dioxide Anion Gap BUN Creatinine Est GFR ( Amer) Est GFR (Non-Af Amer) POC Glucose (mg/dL) 131 H Random Glucose Calcium Phosphorus Magnesium Total Bilirubin AST ALT Alkaline Phosphatase Total Protein Albumin Globulin Albumin/Globulin Ratio Urine Color Urine Clarity Urine pH Ur Specific Toone Urine Protein Urine Glucose (UA) Urine Ketones Urine Blood Urine Nitrate Urine Bilirubin Urine Urobilinogen Ur Leukocyte Esterase Urine WBC (Auto) Urine RBC (Auto) Ur Squamous Epith Cells Urine Bacteria Hyaline Casts Vancomycin Trough EKG/Cardiology Studies: Cardiology / EKG Studies 03/28/17 18:22 EKG [ELECTROCARDIOGRAM] Stat Comment: Mode Of Transportation: Reason For Exam: r/o afib Isolation: Contact Fingerstick Blood Sugar Results: 153 Review of Systems - Review of Systems Systems not reviewed;Unavailable: Intubated Critical Care Progress Note - Nutrition Nutrition: Nutrition Category Date Time Status Heart Healthy Diet [DIET] Diets 03/17/17 Dinner Active Assessment/Plan - Assessment and Plan (Free Text) Assessment: Patient is a 61 year old female with increasing respiratory distress most likely 2/2 ARDS vs pulmonary edema. Plan: Respiratory: CXR 03/29 - Diffuse bilateral pulmonary opacity, nonspecific. Rule out pneumonia versus pulmonary edema versus ARDS. Chest CT w/o 03/27 - Marked bilateral pulmonary edema as seen on chest radiography. Small to moderate bilateral pleural effusions.Small to moderate perihepatic and perisplenic ascites. Patient to be transferred to ICU to be intubated. ABG - pCO2 54/pO2 36/HCO3 17.7/ pH 7.17 - vent settings 400/100/16/5 - PEEP increased to 10 : Septic Shock Dr. Mejia consulted Dr. Dos Santos consulted WBC increased to 25.5 from 20.4 - Bands 36 from 27 (03/28) from 14 (03/27) Lactic Acid improved to 6.4 (03/28) ESBL E. Coli in urine culture. Dr. Dos Santos consulted repeat urine culture - Proteus Mirabilis - dc'd Nitrofurantoin due to resistance - continue Aztreonam 2gm IVPB q8h - continue Vanco 1gm IVPB q12h GI: Albumin 1.8 Patient has been experiencing hypotension (septic shock), most likely 2/2 sepsis and 3rd spacing of fluid due to low albumin. - Versed - Phenylephrine - Levophed Hem: Dr. Neri consulted, help appreciated Hgb 9.4 from 11.2 Platelets 3 - patient was trasfused 2 units of platelets yesterday - will transfuse 1 more unit of platelets today Fibrinogen 156 from 89 (03/28) - patient was given 5 units of cryoprecipitate yesterday 03/28 - if Fibrinogen falls below 100, transfuse another 5 units - continue to monitor T.Bili downtrending 3.0 from 4.3 Nephrology: Dr. Roe consulted, help appreciated - Dr. Flynn actively covering case Na+ 123 - if drops below 120, start on hypertonic saline at 15cc/hr Discontinue Bicarb drip - due to fluid overload - started patient on new bicarb drip 150mEq in D5W at 60cc/hr Electrolytes: Mag 1.6 Phos 3.6 Prophylactic Care: hold VTE due to thrombocytopenia protonix and SCDs Case discussed with Dr. Abel Sanches PGY1 <Eligio Roman - Last Filed: 03/29/17 18:50> CCU Objective - Vital Signs / Intake & Output Vital Signs (Last 4 hours): Vital Signs Pulse Resp BP Pulse Ox 03/29/17 18:40 129/73 03/29/17 18:27 105 H 22 129/73 98 03/29/17 18:00 98 H 28 H 98 03/29/17 17:57 98 H 25 H 124/64 98 03/29/17 17:27 99 H 25 H 125/66 98 03/29/17 17:00 97 H 16 98 03/29/17 16:57 100 H 20 117/68 100 03/29/17 16:56 97 H 16 98 03/29/17 16:27 100 H 29 H 124/71 98 03/29/17 16:00 101 H 27 H 97 03/29/17 15:57 98 H 25 H 115/61 96 03/29/17 15:25 129/75 03/29/17 15:06 104 H 27 H 129/75 96 03/29/17 15:00 103 H 28 H 97 Intake and Output (Last 8hrs): Intake & Output 03/29/17 03/29/17 03/29/17 06:59 14:59 22:59 Intake Total 2472.2 2903.2 1140.7 Output Total 225 155 50 Balance 2247.2 2748.2 1090.7 Weight 75 lb 0.1 oz Intake: IV 677.0 764 506 Intake, IV Amount 1795.2 2139.2 634.7 RIJ Distal 1 470 720 270 RIJ Distal 2 19.2 19.2 7.2 RIJ Distal 3 300.0 300.0 112.5 Right Medial IJ 2 100 Right Medial Port 6 0 Internal Jugular Right Proximal IJ 2 1000 1000 245 Output: Urine 225 155 50 Urethral ([place]) 225 155 50 - Medications Active Medications: Active Medications Generic Name Dose Route Start Last Admin Trade Name Freq PRN Reason Stop Dose Admin Albuterol/Ipratropium 3 ml 03/25/17 20:30 03/29/17 16:39 Duoneb 3 Mg/0.5 Mg (3 Ml) Ud INH 3 ml RQ4 [place] Administration Hydrocortisone Sodium Succinate 100 mg 03/29/17 09:45 03/29/17 14:39 Solu-Cortef IV 100 mg Q8 [place] Administration Phenylephrine HCl 30 mg/ 253 mls @ 10.12 mls/hr 03/27/17 19:57 03/29/17 18:40 Dextrose IV 140 mcg/min .Q24H PRN 70.84 mls/hr TITRATE PER MD ORDER Administration Protocol 20 MCG/MIN Norepinephrine Bitartrate 8 mg 258 mls @ 7.74 mls/hr 03/27/17 23:58 03/29/17 13:17 / Dextrose IV 20 mcg/min .Q24H PRN 38.7 mls/hr TITRATE PER MD ORDER Administration Protocol 4 MCG/MIN Vasopressin 40 units/ Sodium 42 mls @ 0.63 mls/hr 03/28/17 11:30 03/29/17 05: 52 Chloride IV 0.04 units/min .Q24H [place] 2.52 mls/hr Protocol Administration 0.01 UNITS/MIN Sodium Bicarbonate 150 meq/ 1,000 mls @ 60 mls/hr 03/29/17 16:00 03/29/17 15: 59 Dextrose IV 60 mls/hr .[id number] [place] Administration Tigecycline 100 mg/ Sodium 100 mls @ 100 mls/hr 03/29/17 19:00 Chloride IVPB 03/29/17 19:59 ONCE ONE Tigecycline 50 mg/ Sodium 100 mls @ 100 mls/hr 03/30/17 07:00 Chloride IVPB Q12H [place] Insulin Aspart 0 unit 03/28/17 12:00 03/29/17 13:10 Novolog SC Not Given Q6 [place] Protocol Midodrine 5 mg 03/29/17 14:00 03/29/17 13:11 Proamatine PO 5 mg Q8 [place] Administration Morphine Sulfate 1 mg 03/23/17 18:26 03/26/17 13:54 Morphine IVP 1 mg Q4H PRN Administration Pain, moderate (4-7) Pantoprazole Sodium 40 mg 03/28/17 09:30 03/29/17 09:19 Protonix Inj IVP 40 mg Q12H [place] Administration - Patient Studies Lab Studies: Microbiology Studies 03/27/17 11:25 Blood Culture - Preliminary Blood-Venous NO GROWTH AFTER 48 HOURS 03/27/17 11:05 Blood Culture - Preliminary Blood-Venous NO GROWTH AFTER 48 HOURS 03/28/17 16:57 Urine Culture - Final Urine,Catheterized No Growth (<1,000 CFU/ML) 03/27/17 20:01 MRSA Culture (Admit) - Final Naris MRSA NOT DETECTED Lab Studies 03/29/17 03/29/17 03/29/17 Range/Units 17:47 11:57 11:09 WBC (4.8-10.8) K/uL RBC (3.80-5.20) Mil/uL Hgb (11.0-16.0) g/dL Hct (34.0-47.0) % MCV (81.0-99.0) fL MCH (27.0-31.0) pg MCHC (33.0-37.0) g/dL RDW (11.5-14.5) % Plt Count (130-400) K/uL MPV (7.2-11.7) fL Neut % (Auto) (50.0-75.0) % Lymph % (Auto) (20.0-40.0) % [place] % (Auto) (0.0-10.0) % Eos % (Auto) (0.0-4.0) % Baso % (Auto) (0.0-2.0) % Neut # (1.8-7.0) K/uL Lymph # (1.0-4.3) K/uL [place] # (0.0-0.8) K/uL Eos # (0.0-0.7) K/uL Baso # (0.0-0.2) K/uL Neutrophils % (Manual) (50-75) % Band Neutrophils % (0-2) % Lymphocytes % (Manual) (20-40) % Monocytes % (Manual) (0-10) % Platelet Estimate (NORMAL) Polychromasia Hypochromasia (manual) Anisocytosis (manual) Macrocytosis (manual) PT 23.0 H D (9.7-12.2) SECONDS INR 2.0 D APTT 87 H D (21-34) SECONDS Fibrinogen 156 L (200-400) mg/dL Puncture Site pCO2 (35-45) mm/Hg pO2 (80-100) mm/Hg HCO3 (21-28) mmol/L ABG pH (7.35-7.45) ABG Total CO2 (22-28) mmol/L ABG O2 Saturation (95-98) % ABG Base Excess (-2.0-3.0) mmol/L ABG Hemoglobin (11.7-17.4) g/dL ABG Carboxyhemoglobin (0.5-1.5) % POC ABG HHb (Measured) (0.0-5.0) % ABG Methemoglobin (0.0-3.0) % Crescencio Test A-a O2 Difference mm/Hg Respiratory Index Hgb O2 Saturation (95.0-98.0) % Vent Mode Mechanical Rate FiO2 % Tidal Volume PEEP Crit Value Called To Crit Value Called By Crit Value Read Back Blood Gas Notified Time Sodium (132-148) mmol/L Potassium (3.6-5.2) mmol/L Chloride (98-107) mmol/L Carbon Dioxide (22-30) mmol/L Anion Gap (10-20) BUN (7-17) mg/dL Creatinine (0.7-1.2) mg/dL Est GFR ( Amer) Est GFR (Non-Af Amer) POC Glucose (mg/dL) 190 H 131 H (65-110) mg/dL Random Glucose (65-105) mg/dL Calcium (8.6-10.4) mg/dl Phosphorus (2.5-4.5) mg/dL Magnesium (1.6-2.3) mg/dL Total Bilirubin (0.2-1.3) mg/dL AST (14-36) U/L ALT (9-52) U/L Alkaline Phosphatase (38-126) U/L Total Protein (6.3-8.3) g/dL Albumin (3.5-5.0) g/dL Globulin (2.2-3.9) gm/dL Albumin/Globulin Ratio (1.0-2.1) Vancomycin Trough (5.0-10.0) ug/mL 03/29/17 03/29/17 03/29/17 Range/Units 06:32 06:26 06:26 WBC (4.8-10.8) K/uL RBC (3.80-5.20) Mil/uL Hgb (11.0-16.0) g/dL Hct (34.0-47.0) % MCV (81.0-99.0) fL MCH (27.0-31.0) pg MCHC (33.0-37.0) g/dL RDW (11.5-14.5) % Plt Count (130-400) K/uL MPV (7.2-11.7) fL Neut % (Auto) (50.0-75.0) % Lymph % (Auto) (20.0-40.0) % [place] % (Auto) (0.0-10.0) % Eos % (Auto) (0.0-4.0) % Baso % (Auto) (0.0-2.0) % Neut # (1.8-7.0) K/uL Lymph # (1.0-4.3) K/uL [place] # (0.0-0.8) K/uL Eos # (0.0-0.7) K/uL Baso # (0.0-0.2) K/uL Neutrophils % (Manual) (50-75) % Band Neutrophils % (0-2) % Lymphocytes % (Manual) (20-40) % Monocytes % (Manual) (0-10) % Platelet Estimate (NORMAL) Polychromasia Hypochromasia (manual) Anisocytosis (manual) Macrocytosis (manual) PT (9.7-12.2) SECONDS INR APTT (21-34) SECONDS Fibrinogen (200-400) mg/dL Puncture Site pCO2 (35-45) mm/Hg pO2 (80-100) mm/Hg HCO3 (21-28) mmol/L ABG pH (7.35-7.45) ABG Total CO2 (22-28) mmol/L ABG O2 Saturation (95-98) % ABG Base Excess (-2.0-3.0) mmol/L ABG Hemoglobin (11.7-17.4) g/dL ABG Carboxyhemoglobin (0.5-1.5) % POC ABG HHb (Measured) (0.0-5.0) % ABG Methemoglobin (0.0-3.0) % Crescencio Test A-a O2 Difference mm/Hg Respiratory Index Hgb O2 Saturation (95.0-98.0) % Vent Mode Mechanical Rate FiO2 % Tidal Volume PEEP Crit Value Called To Crit Value Called By Crit Value Read Back Blood Gas Notified Time Sodium 123 L (132-148) mmol/L Potassium 3.8 (3.6-5.2) mmol/L Chloride 90 L (98-107) mmol/L Carbon Dioxide 18 L (22-30) mmol/L Anion Gap 19 (10-20) BUN 21 H (7-17) mg/dL Creatinine 1.1 (0.7-1.2) mg/dL Est GFR ( Amer) > 60 Est GFR (Non-Af Amer) 51 POC Glucose (mg/dL) 93 (65-110) mg/dL Random Glucose 67 (65-105) mg/dL Calcium 6.3 L (8.6-10.4) mg/dl Phosphorus 3.4 (2.5-4.5) mg/dL Magnesium 1.6 (1.6-2.3) mg/dL Total Bilirubin 3.0 H (0.2-1.3) mg/dL AST 77 H D (14-36) U/L ALT 75 H (9-52) U/L Alkaline Phosphatase 52 (38-126) U/L Total Protein 4.2 L (6.3-8.3) g/dL Albumin 1.8 L (3.5-5.0) g/dL Globulin 2.4 (2.2-3.9) gm/dL Albumin/Globulin Ratio 0.8 L (1.0-2.1) Vancomycin Trough 21.6 H (5.0-10.0) ug/mL 03/29/17 03/29/17 03/28/17 Range/Units 06:26 05:27 23:36 WBC 25.5 H (4.8-10.8) K/uL RBC 2.66 L (3.80-5.20) Mil/uL Hgb 9.4 L (11.0-16.0) g/dL Hct 28.9 L (34.0-47.0) % MCV 108.8 H (81.0-99.0) fL MCH 35.5 H (27.0-31.0) pg MCHC 32.6 L (33.0-37.0) g/dL RDW 19.0 H (11.5-14.5) % Plt Count 3 L* (130-400) K/uL MPV 8.5 (7.2-11.7) fL Neut % (Auto) 92.7 H (50.0-75.0) % Lymph % (Auto) 3.8 L (20.0-40.0) % [place] % (Auto) 2.2 (0.0-10.0) % Eos % (Auto) 1.2 (0.0-4.0) % Baso % (Auto) 0.1 (0.0-2.0) % Neut # 23.6 H (1.8-7.0) K/uL Lymph # 1.0 (1.0-4.3) K/uL [place] # 0.6 (0.0-0.8) K/uL Eos # 0.3 (0.0-0.7) K/uL Baso # 0.0 (0.0-0.2) K/uL Neutrophils % (Manual) 51 (50-75) % Band Neutrophils % 36 H* (0-2) % Lymphocytes % (Manual) 5 L (20-40) % Monocytes % (Manual) 8 (0-10) % Platelet Estimate Markedly decreased L (NORMAL) Polychromasia Slight Hypochromasia (manual) Slight Anisocytosis (manual) Slight Macrocytosis (manual) Moderate PT (9.7-12.2) SECONDS INR APTT (21-34) SECONDS Fibrinogen (200-400) mg/dL Puncture Site Rr pCO2 54 H (35-45) mm/Hg pO2 36 L* (80-100) mm/Hg HCO3 17.7 L (21-28) mmol/L ABG pH 7.17 L* (7.35-7.45) ABG Total CO2 21.4 L (22-28) mmol/L ABG O2 Saturation 68.4 L (95-98) % ABG Base Excess -8.6 L (-2.0-3.0) mmol/L ABG Hemoglobin 9.2 L (11.7-17.4) g/dL ABG Carboxyhemoglobin 2.4 H (0.5-1.5) % POC ABG HHb (Measured) 30.6 H (0.0-5.0) % ABG Methemoglobin 0.8 (0.0-3.0) % Crescencio Test Pos A-a O2 Difference 610.0 mm/Hg Respiratory Index 16.9 Hgb O2 Saturation 66.2 L (95.0-98.0) % Vent Mode Prvc Mechanical Rate 16 FiO2 100.0 % Tidal Volume 400 PEEP 5 Crit Value Called To Hoang al rn Crit Value Called By Holli dressage instructor Crit Value Read Back Y Blood Gas Notified Time 557 Sodium (132-148) mmol/L Potassium (3.6-5.2) mmol/L Chloride (98-107) mmol/L Carbon Dioxide (22-30) mmol/L Anion Gap (10-20) BUN (7-17) mg/dL Creatinine (0.7-1.2) mg/dL Est GFR ( Amer) Est GFR (Non-Af Amer) POC Glucose (mg/dL) 153 H (65-110) mg/dL Random Glucose (65-105) mg/dL Calcium (8.6-10.4) mg/dl Phosphorus (2.5-4.5) mg/dL Magnesium (1.6-2.3) mg/dL Total Bilirubin (0.2-1.3) mg/dL AST (14-36) U/L ALT (9-52) U/L Alkaline Phosphatase (38-126) U/L Total Protein (6.3-8.3) g/dL Albumin (3.5-5.0) g/dL Globulin (2.2-3.9) gm/dL Albumin/Globulin Ratio (1.0-2.1) Vancomycin Trough (5.0-10.0) ug/mL Laboratory Results - last 24 hr 03/28/17 03/29/17 03/29/17 23:36 05:27 06:26 WBC 25.5 H RBC 2.66 L Hgb 9.4 L Hct 28.9 L MCV 108.8 H MCH 35.5 H MCHC 32.6 L RDW 19.0 H Plt Count 3 L* MPV 8.5 Neut % (Auto) 92.7 H Lymph % (Auto) 3.8 L [place] % (Auto) 2.2 Eos % (Auto) 1.2 Baso % (Auto) 0.1 Neut # 23.6 H Lymph # 1.0 [place] # 0.6 Eos # 0.3 Baso # 0.0 Neutrophils % (Manual) 51 Band Neutrophils % 36 H* Lymphocytes % (Manual) 5 L Monocytes % (Manual) 8 Platelet Estimate Markedly decreased L Polychromasia Slight Hypochromasia (manual) Slight Anisocytosis (manual) Slight Macrocytosis (manual) Moderate PT INR APTT Fibrinogen Puncture Site Rr pCO2 54 H pO2 36 L* HCO3 17.7 L ABG pH 7.17 L* ABG Total CO2 21.4 L ABG O2 Saturation 68.4 L ABG Base Excess -8.6 L ABG Hemoglobin 9.2 L ABG Carboxyhemoglobin 2.4 H POC ABG HHb (Measured) 30.6 H ABG Methemoglobin 0.8 Crescencio Test Pos A-a O2 Difference 610.0 Respiratory Index 16.9 Hgb O2 Saturation 66.2 L Vent Mode Prvc Mechanical Rate 16 FiO2 100.0 Tidal Volume 400 PEEP 5 Crit Value Called To Hoang al rn Crit Value Called By Holli dressage instructor Crit Value Read Back Y Blood Gas Notified Time 557 Sodium Potassium Chloride Carbon Dioxide Anion Gap BUN Creatinine Est GFR ( Amer) Est GFR (Non-Af Amer) POC Glucose (mg/dL) 153 H Random Glucose Calcium Phosphorus Magnesium Total Bilirubin AST ALT Alkaline Phosphatase Total Protein Albumin Globulin Albumin/Globulin Ratio Vancomycin Trough 03/29/17 03/29/17 03/29/17 06:26 06:26 06:32 WBC RBC Hgb Hct MCV MCH MCHC RDW Plt Count MPV Neut % (Auto) Lymph % (Auto) [place] % (Auto) Eos % (Auto) Baso % (Auto) Neut # Lymph # [place] # Eos # Baso # Neutrophils % (Manual) Band Neutrophils % Lymphocytes % (Manual) Monocytes % (Manual) Platelet Estimate Polychromasia Hypochromasia (manual) Anisocytosis (manual) Macrocytosis (manual) PT INR APTT Fibrinogen Puncture Site pCO2 pO2 HCO3 ABG pH ABG Total CO2 ABG O2 Saturation ABG Base Excess ABG Hemoglobin ABG Carboxyhemoglobin POC ABG HHb (Measured) ABG Methemoglobin Crescencio Test A-a O2 Difference Respiratory Index Hgb O2 Saturation Vent Mode Mechanical Rate FiO2 Tidal Volume PEEP Crit Value Called To Crit Value Called By Crit Value Read Back Blood Gas Notified Time Sodium 123 L Potassium 3.8 Chloride 90 L Carbon Dioxide 18 L Anion Gap 19 BUN 21 H Creatinine 1.1 Est GFR ( Amer) > 60 Est GFR (Non-Af Amer) 51 POC Glucose (mg/dL) 93 Random Glucose 67 Calcium 6.3 L Phosphorus 3.4 Magnesium 1.6 Total Bilirubin 3.0 H AST 77 H D ALT 75 H Alkaline Phosphatase 52 Total Protein 4.2 L Albumin 1.8 L Globulin 2.4 Albumin/Globulin Ratio 0.8 L Vancomycin Trough 21.6 H 03/29/17 03/29/17 03/29/17 11:09 11:57 17:47 WBC RBC Hgb Hct MCV MCH MCHC RDW Plt Count MPV Neut % (Auto) Lymph % (Auto) [place] % (Auto) Eos % (Auto) Baso % (Auto) Neut # Lymph # [place] # Eos # Baso # Neutrophils % (Manual) Band Neutrophils % Lymphocytes % (Manual) Monocytes % (Manual) Platelet Estimate Polychromasia Hypochromasia (manual) Anisocytosis (manual) Macrocytosis (manual) PT 23.0 H D INR 2.0 D APTT 87 H D Fibrinogen 156 L Puncture Site pCO2 pO2 HCO3 ABG pH ABG Total CO2 ABG O2 Saturation ABG Base Excess ABG Hemoglobin ABG Carboxyhemoglobin POC ABG HHb (Measured) ABG Methemoglobin Crescencio Test A-a O2 Difference Respiratory Index Hgb O2 Saturation Vent Mode Mechanical Rate FiO2 Tidal Volume PEEP Crit Value Called To Crit Value Called By Crit Value Read Back Blood Gas Notified Time Sodium Potassium Chloride Carbon Dioxide Anion Gap BUN Creatinine Est GFR ( Amer) Est GFR (Non-Af Amer) POC Glucose (mg/dL) 131 H 190 H Random Glucose Calcium Phosphorus Magnesium Total Bilirubin AST ALT Alkaline Phosphatase Total Protein Albumin Globulin Albumin/Globulin Ratio Vancomycin Trough EKG/Cardiology Studies: Cardiology / EKG Studies 03/28/17 18:22 EKG [ELECTROCARDIOGRAM] Stat Comment: Mode Of Transportation: Reason For Exam: r/o afib Isolation: Contact Critical Care Progress Note - Nutrition Nutrition: Nutrition Category Date Time Status Heart Healthy Diet [DIET] Diets 03/17/17 Dinner Active Attending/Attestation - Attestation I have personally seen and examined this patient.: Yes I have fully participated in the care of the patient.: Yes I have reviewed all pertinent clinical information: Yes Notes (Text): 03/29/17 18:45 Today: February The Patient was seen and examined at the bedside, Medical records reviewed, and management issues were discussed and formulated with the house staff. I have reviewed all the relevant clinical, laboratory, hemodynamic, radiographic data and medications Events reviewed Pain issues, skin care, head of the bed elevation, glycemic control were addressed. Critically ill patient with acute hypoxemic respiratory failure, septic shock, sever metabolic acidosis Pt on multiple vasopressor, antibiotics, Follow-up culture and sensitivity IV fluids as needed Bronchodilators and steroids Follow-up platelet count and transfuse as needed Discussed with the family in details diagnosis, treatment plans and alternatives , Code status: Full code Total critical care time 54 minutes Agree with above resident's assessment and treatment plans of care as transcribed in Dr. Sanches note.
--- NOTE | 2017-03-29 18:14 | CP.PCM.PN ---
Subjective - Date & Time of Evaluation Date of Evaluation: 03/29/17 Time of Evaluation: 07:00 - Subjective Subjective: events noted remains intubated afebrile Objective - Vital Signs/Intake and Output Vital Signs (last 24 hours): Temp Pulse Resp BP Pulse Ox 98.5 F 97 H 16 117/68 98 03/29/17 08:00 03/29/17 16:56 03/29/17 16:56 03/29/17 16:57 03/29/17 16:56 Intake and Output: 03/29/17 03/29/17 06:59 18:59 Intake Total 4134.8 3790.9 Output Total 300 205 Balance 3834.8 3585.9 - Medications Medications: Current Medications Albuterol/Ipratropium (Duoneb 3 Mg/0.5 Mg (3 Ml) Ud) 3 ml INH RQ4 [place] Last Admin: 03/29/17 16:39 Dose: 3 ml Hydrocortisone Sodium Succinate (Solu-Cortef) 100 mg IV Q8 [place] Last Admin: 03/29/17 14:39 Dose: 100 mg Aztreonam 2 gm/ Sodium (Chloride) 100 mls @ 200 mls/hr IVPB Q8H [place] Last Admin: 03/29/17 14:39 Dose: 200 mls/hr Vancomycin HCl 1 gm/ Sodium (Chloride) 250 mls @ 166.667 mls/hr IVPB Q12H [place] Last Admin: 03/29/17 05:00 Dose: 166.667 mls/hr Phenylephrine HCl 30 mg/ (Dextrose) 253 mls @ 10.12 mls/hr IV .Q24H PRN; Protocol; 20 MCG/MIN PRN Reason: TITRATE PER MD ORDER Last Admin: 03/29/17 15:25 Dose: 80 mcg/min, 40.48 mls/hr Norepinephrine Bitartrate 8 mg (/ Dextrose) 258 mls @ 7.74 mls/hr IV .Q24H PRN ; Protocol; 4 MCG/MIN PRN Reason: TITRATE PER MD ORDER Last Admin: 03/29/17 13:17 Dose: 20 mcg/min, 38.7 mls/hr Vasopressin 40 units/ Sodium (Chloride) 42 mls @ 0.63 mls/hr IV .Q24H [place]; 0.01 UNITS/MIN PRN Reason: Protocol Last Admin: 03/29/17 05:52 Dose: 0.04 units/min, 2.52 mls/hr Sodium Bicarbonate 150 meq/ (Dextrose) 1,000 mls @ 60 mls/hr IV .[id number] [facility] Last Admin: 03/29/17 15:59 Dose: 60 mls/hr Insulin Aspart (Novolog) 0 unit SC Q6 [place] PRN Reason: Protocol Last Admin: 03/29/17 13:10 Dose: Not Given Midodrine (Proamatine) 5 mg PO Q8 [facility] Last Admin: 03/29/17 13:11 Dose: 5 mg Morphine Sulfate (Morphine) 1 mg IVP Q4H PRN PRN Reason: Pain, moderate (4-7) Last Admin: 03/26/17 13:54 Dose: 1 mg Pantoprazole Sodium (Protonix Inj) 40 mg IVP Q12H [facility] Last Admin: 03/29/17 09:19 Dose: 40 mg - Labs Labs: 03/29/17 06:26 03/29/17 06:26 PT 23.0 SECONDS (9.7-12.2) H D 03/29/17 11:09 INR 2.0 D 03/29/17 11:09 APTT 87 SECONDS (21-34) H D 03/29/17 11:09 - Constitutional Appears: Confused, Chronically Ill - Head Exam Head Exam: NORMOCEPHALIC - Eye Exam Eye Exam: PERRL - ENT Exam ENT Exam: Mucous Membranes Dry - Neck Exam Neck Exam: absent: Lymphadenopathy - Respiratory Exam Respiratory Exam: Decreased Breath Sounds, Prolonged Expiratory Phase, Rales, Rhonchi - Cardiovascular Exam Cardiovascular Exam: REGULAR RHYTHM, +S1, +S2 - GI/Abdominal Exam GI & Abdominal Exam: Distended, Soft Assessment and Plan (1) Difficulty urinating Status: Acute (2) Difficulty walking Status: Acute (3) UTI (urinary tract infection) Status: Acute
--- NOTE | 2017-03-29 21:46 | CARD ---
APPROVED REPORT EKG Measurement Heart [id number] <Conclusion> Sinus tachycardia Left axis deviation Low voltage QRS ST & T wave abnormality, consider anterolateral ischemia Abnormal ECG
[2017-03-29 23:33] LABS: VENOUS BLOOD GAS BASE EXCESS -1.4 mmol/L (0.0-2.0); VENOUS BLOOD GAS MODE PRVC; VENOUS BLOOD GAS PCO2 49 mmHg (40-60); VENOUS BLOOD PH 7.32 (7.32-7.43)
[2017-03-30] MEDS: Phenylephrine 30 MG in Dextrose 5% In Water 250 ML IV PRN ×4 (00:06→09:31)
[2017-03-30] MEDS: (Novolog) Insulin Aspart, Recombinant 100 u/ml 10 ml vial SC SCH ×4 (00:09→19:05)
[2017-03-30] MEDS ORDERED: Sodium Chloride 0.9% 1,000 ML IV ONE (00:10)
[2017-03-30] MEDS: Albuterol-Ipratrop 3 mg / 0.5 (3 ml) UD INH SCH ×5 (00:13→20:51)
[2017-03-30 05:34] LABS: ARTERIAL BLOOD HGB O2 SAT 95.2 % (95.0-98.0); CARBOXYHEMOGLOBIN 3.7 % (0.5-1.5); HHB -0.6 % (0.0-5.0); METHEMOGLOBIN 1.8 % (0.0-3.0)
[2017-03-30 05:35] LABS: ABG ALLEN TEST POS; ABG MECHANICAL RATE 16; ARTERIAL BLOOD GAS MODE PRVC; ATERIAL BLOOD GAS PEEP 10; DRAW SITE RR
[2017-03-30 06:32] LABS: BASO % 0.1 % (0.0-2.0); EOS # 0.5 K/uL (0.0-0.7); EOS % 1.2 % (0.0-4.0); HEMATOCRIT 26.2 % (34.0-47.0); LYMPH # 1.2 K/uL (1.0-4.3); LYMPH % 2.9 % (20.0-40.0); MEAN CELL VOLUME 106.3 fL (81.0-99.0); MEAN CORPUSCULAR HEMOGLOBIN 34.4 pg (27.0-31.0); MEAN CORPUSCULAR HGB CONC 32.4 g/dL (33.0-37.0); MEAN PLATELET VOLUME 11.4 fL (7.2-11.7); MONO # 0.5 K/uL (0.0-0.8); MONO % 1.2 % (0.0-10.0); NRBC % 0.1 % (0.0-2.0); PLATELET COUNT 74 K/uL (130-400); RED CELL DISTRIBUTION WIDTH 17.6 % (11.5-14.5)
[2017-03-30 06:42] LABS: GLUCOSE,RANDOM 188 mg/dL (65-105); TOTAL PROTEIN 4.5 g/dL (6.3-8.3); WHITE BLOOD COUNT 43.3 K/uL (4.8-10.8)
[2017-03-30 06:46] LABS: ALB/GLOB RATIO 0.6 (1.0-2.1); ALKALINE PHOSPHATASE 124 U/L (38-126); ALT/SGPT 99 U/L (9-52); AST/SGOT 130 U/L (14-36); BILIRUBIN,TOTAL 3.7 mg/dL (0.2-1.3); BLOOD UREA NITROGEN 24 mg/dL (7-17); CALCIUM 6.3 mg/dl (8.6-10.4); CARBON DIOXIDE 24 mmol/L (22-30); CHLORIDE 88 mmol/L (98-107); POTASSIUM 3.9 mmol/L (3.6-5.2); SODIUM 120 mmol/L (132-148)
[2017-03-30 06:51] LABS: INR 2.2
[2017-03-30 07:34] LABS: GFR AFRICAN-AMERICAN > 60
--- NOTE | 2017-03-30 08:40 | CP.CCUPN ---
<Mic Sanches - Last Filed: 03/30/17 14:56> CCU Subjective - Physician Review Subjective (Free Text): PGY1 ICU Progress Note for Dr. Andrade Patient seen and examined at bedside this morning. Patient intubated. ROS unobtainable. CCU Objective - Vital Signs / Intake & Output Vital Signs (Last 4 hours): Vital Signs Pulse Resp BP Pulse Ox 03/30/17 07:01 114/60 03/30/17 07:00 85 23 117/67 99 03/30/17 06:07 91 H 21 117/67 100 03/30/17 06:00 92 H 23 117/67 99 03/30/17 05:29 96 H 21 137/80 100 03/30/17 05:00 100 H 27 H 137/80 97 Intake and Output (Last 8hrs): Intake & Output 03/29/17 03/30/17 03/30/17 22:59 06:59 14:59 Intake Total 2920.8 2691.1 117.4 Output Total 40 300 Balance 2880.8 2391.1 117.4 Intake: IV 1059 1533 Intake, IV Amount 1811.8 1108.1 117.4 RIJ Distal 1 600 440 40 RIJ Distal 2 19.2 19.2 2.4 RIJ Distal 3 277.6 168.9 15 Right Medial IJ 2 370 Right Proximal IJ 2 545 480 60 Other 50 50 Output: Urine 40 300 Urethral (Duong) 40 Urine, Voided 300 Other: # Bowel Movements 1 - Physical Exam Physical Exam Limitations: Positive for: Other (Intubated) Mouth: Positive for: Other (intubated) Respiratory/Chest: Positive for: Rales, Rhonchi, Other (intubated). Negative for: Accessory Muscle Use Abdomen: Positive for: Other (+ fluid wave (ascites)) Upper Extremity: Positive for: Other (multiple areas of ecchymosis) Lower Extremity: Positive for: Other (ecchymosis) Neurological: Positive for: Other (intubated) Skin: Positive for: Warm, Dry Psychiatric: Positive for: Other (sedated. intubated) - Medications Active Medications: Active Medications Generic Name Dose Route Start Last Admin Trade Name Freq PRN Reason Stop Dose Admin Albuterol/Ipratropium 3 ml 03/25/17 20:30 03/30/17 07:57 Duoneb 3 Mg/0.5 Mg (3 Ml) Ud INH 3 ml RQ4 [place] Administration Hydrocortisone Sodium Succinate 100 mg 03/29/17 09:45 03/30/17 06:02 Solu-Cortef IV 100 mg Q8 [place] Administration Phenylephrine HCl 30 mg/ 253 mls @ 10.12 mls/hr 03/27/17 19:57 03/30/17 06:07 Dextrose IV 98.81 mcg/min .Q24H PRN 49.99 mls/hr TITRATE PER MD ORDER Administration Protocol 20 MCG/MIN Norepinephrine Bitartrate 8 mg 258 mls @ 7.74 mls/hr 03/27/17 23:58 03/30/17 05:29 / Dextrose IV 7.75 mcg/min .Q24H PRN 15 mls/hr TITRATE PER MD ORDER Administration Protocol 4 MCG/MIN Vasopressin 40 units/ Sodium 42 mls @ 0.63 mls/hr 03/28/17 11:30 03/30/17 00: 03 Chloride IV 0.04 units/min .Q24H [place] 2.52 mls/hr Protocol Administration 0.01 UNITS/MIN Sodium Bicarbonate 150 meq/ 1,000 mls @ 60 mls/hr 03/29/17 16:00 03/29/17 15: 59 Dextrose IV 60 mls/hr .[id number] [place] Administration Tigecycline 50 mg/ Sodium 100 mls @ 100 mls/hr 03/30/17 07:00 03/30/17 06:06 Chloride IVPB 100 mls/hr Q12H [place] Administration Insulin Aspart 0 unit 03/28/17 12:00 03/30/17 05:34 Novolog SC 3 unit Q6 [place] Administration Protocol Midodrine 5 mg 03/29/17 14:00 03/30/17 06:03 Proamatine PO 5 mg Q8 [place] Administration Morphine Sulfate 1 mg 03/23/17 18:26 03/26/17 13:54 Morphine IVP 1 mg Q4H PRN Administration Pain, moderate (4-7) Pantoprazole Sodium 40 mg 03/28/17 09:30 03/29/17 22:04 Protonix Inj IVP 40 mg Q12H [place] Administration - Patient Studies Lab Studies: Microbiology Studies 03/27/17 11:25 Blood Culture - Preliminary Blood-Venous NO GROWTH AFTER 48 HOURS 03/27/17 11:05 Blood Culture - Preliminary Blood-Venous NO GROWTH AFTER 48 HOURS 03/28/17 16:57 Urine Culture - Final Urine,Catheterized No Growth (<1,000 CFU/ML) Lab Studies 03/30/17 03/30/17 03/30/17 Range/Units 06:18 06:18 06:18 WBC (4.8-10.8) K/uL RBC (3.80-5.20) Mil/uL Hgb (11.0-16.0) g/dL Hct (34.0-47.0) % MCV (81.0-99.0) fL MCH (27.0-31.0) pg MCHC (33.0-37.0) g/dL RDW (11.5-14.5) % Plt Count (130-400) K/uL MPV (7.2-11.7) fL Neut % (Auto) (50.0-75.0) % Lymph % (Auto) (20.0-40.0) % Surry % (Auto) (0.0-10.0) % Eos % (Auto) (0.0-4.0) % Baso % (Auto) (0.0-2.0) % Neut # (1.8-7.0) K/uL Lymph # (1.0-4.3) K/uL Surry # (0.0-0.8) K/uL Eos # (0.0-0.7) K/uL Baso # (0.0-0.2) K/uL PT 25.0 H (9.7-12.2) SECONDS INR 2.2 APTT 67 H D (21-34) SECONDS Fibrinogen 142 L (200-400) mg/dL Puncture Site pCO2 (35-45) mm/Hg pO2 (30-55) mm/Hg HCO3 (21-28) mmol/L ABG pH (7.35-7.45) ABG Total CO2 (22-28) mmol/L ABG O2 Saturation (95-98) % ABG Base Excess (-2.0-3.0) mmol/L ABG Hemoglobin (11.7-17.4) g/dL ABG Carboxyhemoglobin (0.5-1.5) % POC ABG HHb (Measured) (0.0-5.0) % ABG Methemoglobin (0.0-3.0) % Crescencio Test VBG pH (7.32-7.43) VBG pCO2 (40-60) mmHg VBG HCO3 mmol/L VBG Total CO2 (22-28) mmol/L VBG O2 Sat (Calc) (40-65) % VBG Base Excess (0.0-2.0) mmol/L VBG Potassium (3.6-5.2) mmol/L A-a O2 Difference mm/Hg Respiratory Index Hgb O2 Saturation (95.0-98.0) % Sodium (132-148) mmol/l Chloride (98-107) mmol/L Glucose (65-105) mg/dl Lactate (0.7-2.1) mmol/L Vent Mode Mechanical Rate FiO2 % Tidal Volume PEEP Crit Value Called To Crit Value Called By Crit Value Read Back Blood Gas Notified Time Potassium (3.6-5.2) mmol/L Carbon Dioxide (22-30) mmol/L Anion Gap (10-20) BUN (7-17) mg/dL Creatinine (0.7-1.2) mg/dL Est GFR ( Amer) Est GFR (Non-Af Amer) POC Glucose (mg/dL) (65-110) mg/dL Random Glucose (65-105) mg/dL Lactic Acid 4.1 H* (0.7-2.1) mmol/L Calcium (8.6-10.4) mg/dl Total Bilirubin (0.2-1.3) mg/dL AST (14-36) U/L ALT (9-52) U/L Alkaline Phosphatase (38-126) U/L Total Protein (6.3-8.3) g/dL Albumin (3.5-5.0) g/dL Globulin (2.2-3.9) gm/dL Albumin/Globulin Ratio (1.0-2.1) Venous Blood Potassium (3.6-5.2) mmol/L Random Vancomycin 19.88 ug/mL 03/30/17 03/30/17 03/30/17 Range/Units 06:18 06:18 05:11 WBC 43.3 H* D (4.8-10.8) K/uL RBC 2.46 L (3.80-5.20) Mil/uL Hgb 8.5 L (11.0-16.0) g/dL Hct 26.2 L (34.0-47.0) % MCV 106.3 H D (81.0-99.0) fL MCH 34.4 H (27.0-31.0) pg MCHC 32.4 L (33.0-37.0) g/dL RDW 17.6 H (11.5-14.5) % Plt Count 74 L D (130-400) K/uL MPV 11.4 (7.2-11.7) fL Neut % (Auto) 94.6 H (50.0-75.0) % Lymph % (Auto) 2.9 L (20.0-40.0) % Surry % (Auto) 1.2 (0.0-10.0) % Eos % (Auto) 1.2 (0.0-4.0) % Baso % (Auto) 0.1 (0.0-2.0) % Neut # 41.0 H (1.8-7.0) K/uL Lymph # 1.2 (1.0-4.3) K/uL Surry # 0.5 (0.0-0.8) K/uL Eos # 0.5 (0.0-0.7) K/uL Baso # 0.0 (0.0-0.2) K/uL PT (9.7-12.2) SECONDS INR APTT (21-34) SECONDS Fibrinogen (200-400) mg/dL Puncture Site Rr pCO2 35 (35-45) mm/Hg pO2 79 L (30-55) mm/Hg HCO3 25.2 (21-28) mmol/L ABG pH 7.45 (7.35-7.45) ABG Total CO2 25.4 (22-28) mmol/L ABG O2 Saturation 100.6 H (95-98) % ABG Base Excess 0.4 (-2.0-3.0) mmol/L ABG Hemoglobin 8.0 L (11.7-17.4) g/dL ABG Carboxyhemoglobin 3.7 H (0.5-1.5) % POC ABG HHb (Measured) -0.6 L (0.0-5.0) % ABG Methemoglobin 1.8 (0.0-3.0) % Crescencio Test Pos VBG pH (7.32-7.43) VBG pCO2 (40-60) mmHg VBG HCO3 mmol/L VBG Total CO2 (22-28) mmol/L VBG O2 Sat (Calc) (40-65) % VBG Base Excess (0.0-2.0) mmol/L VBG Potassium (3.6-5.2) mmol/L A-a O2 Difference 590.0 mm/Hg Respiratory Index 7.5 Hgb O2 Saturation 95.2 (95.0-98.0) % Sodium 120 L* (132-148) mmol/l Chloride 88 L (98-107) mmol/L Glucose (65-105) mg/dl Lactate (0.7-2.1) mmol/L Vent Mode Prvc Mechanical Rate 16 FiO2 100.0 % Tidal Volume 400 PEEP 10 Crit Value Called To Crit Value Called By Crit Value Read Back Blood Gas Notified Time Potassium 3.9 (3.6-5.2) mmol/L Carbon Dioxide 24 (22-30) mmol/L Anion Gap 12 (10-20) BUN 24 H (7-17) mg/dL Creatinine 0.9 (0.7-1.2) mg/dL Est GFR ( Amer) > 60 Est GFR (Non-Af Amer) > 60 POC Glucose (mg/dL) (65-110) mg/dL Random Glucose 188 H (65-105) mg/dL Lactic Acid (0.7-2.1) mmol/L Calcium 6.3 L (8.6-10.4) mg/dl Total Bilirubin 3.7 H (0.2-1.3) mg/dL AST 130 H D (14-36) U/L ALT 99 H D (9-52) U/L Alkaline Phosphatase 124 (38-126) U/L Total Protein 4.5 L (6.3-8.3) g/dL Albumin 1.8 L (3.5-5.0) g/dL Globulin 2.8 (2.2-3.9) gm/dL Albumin/Globulin Ratio 0.6 L (1.0-2.1) Venous Blood Potassium (3.6-5.2) mmol/L Random Vancomycin ug/mL 03/30/17 03/29/17 03/29/17 Range/Units 04:52 23:52 23:24 WBC (4.8-10.8) K/uL RBC (3.80-5.20) Mil/uL Hgb (11.0-16.0) g/dL Hct (34.0-47.0) % MCV (81.0-99.0) fL MCH (27.0-31.0) pg MCHC (33.0-37.0) g/dL RDW (11.5-14.5) % Plt Count (130-400) K/uL MPV (7.2-11.7) fL Neut % (Auto) (50.0-75.0) % Lymph % (Auto) (20.0-40.0) % Surry % (Auto) (0.0-10.0) % Eos % (Auto) (0.0-4.0) % Baso % (Auto) (0.0-2.0) % Neut # (1.8-7.0) K/uL Lymph # (1.0-4.3) K/uL Sur[place] # (0.0-0.8) K/uL Eos # (0.0-0.7) K/uL Baso # (0.0-0.2) K/uL PT (9.7-12.2) SECONDS INR APTT (21-34) SECONDS Fibrinogen (200-400) mg/dL Puncture Site pCO2 (35-45) mm/Hg pO2 39 (30-55) mm/Hg HCO3 (21-28) mmol/L ABG pH (7.35-7.45) ABG Total CO2 (22-28) mmol/L ABG O2 Saturation (95-98) % ABG Base Excess (-2.0-3.0) mmol/L ABG Hemoglobin (11.7-17.4) g/dL ABG Carboxyhemoglobin (0.5-1.5) % POC ABG HHb (Measured) (0.0-5.0) % ABG Methemoglobin (0.0-3.0) % Crescencio Test VBG pH 7.32 (7.32-7.43) VBG pCO2 49 (40-60) mmHg VBG HCO3 23.0 mmol/L VBG Total CO2 26.7 (22-28) mmol/L VBG O2 Sat (Calc) 78.3 H (40-65) % VBG Base Excess -1.4 L (0.0-2.0) mmol/L VBG Potassium 3.8 (3.6-5.2) mmol/L A-a O2 Difference mm/Hg Respiratory Index Hgb O2 Saturation (95.0-98.0) % Sodium 123.0 L (132-148) mmol/l Chloride 89.0 L (98-107) mmol/L Glucose 233 H (65-105) mg/dl Lactate 4.7 H* (0.7-2.1) mmol/L Vent Mode Mechanical Rate FiO2 100.0 % Tidal Volume PEEP 5 Crit Value Called To Ghaazl rn Crit Value Called By Holli input output clerk Crit Value Read Back Y Blood Gas Notified Time 2333 Potassium (3.6-5.2) mmol/L Carbon Dioxide (22-30) mmol/L Anion Gap (10-20) BUN (7-17) mg/dL Creatinine (0.7-1.2) mg/dL Est GFR ( Amer) Est GFR (Non-Af Amer) POC Glucose (mg/dL) 256 H 272 H (65-110) mg/dL Random Glucose (65-105) mg/dL Lactic Acid (0.7-2.1) mmol/L Calcium (8.6-10.4) mg/dl Total Bilirubin (0.2-1.3) mg/dL AST (14-36) U/L ALT (9-52) U/L Alkaline Phosphatase (38-126) U/L Total Protein (6.3-8.3) g/dL Albumin (3.5-5.0) g/dL Globulin (2.2-3.9) gm/dL Albumin/Globulin Ratio (1.0-2.1) Venous Blood Potassium 3.8 (3.6-5.2) mmol/L Random Vancomycin ug/mL 03/29/17 03/29/17 03/29/17 Range/Units 17:47 11:57 11:09 WBC (4.8-10.8) K/uL RBC (3.80-5.20) Mil/uL Hgb (11.0-16.0) g/dL Hct (34.0-47.0) % MCV (81.0-99.0) fL MCH (27.0-31.0) pg MCHC (33.0-37.0) g/dL RDW (11.5-14.5) % Plt Count (130-400) K/uL MPV (7.2-11.7) fL Neut % (Auto) (50.0-75.0) % Lymph % (Auto) (20.0-40.0) % Sur[place] % (Auto) (0.0-10.0) % Eos % (Auto) (0.0-4.0) % Baso % (Auto) (0.0-2.0) % Neut # (1.8-7.0) K/uL Lymph # (1.0-4.3) K/uL Surry # (0.0-0.8) K/uL Eos # (0.0-0.7) K/uL Baso # (0.0-0.2) K/uL PT 23.0 H D (9.7-12.2) SECONDS INR 2.0 D APTT 87 H D (21-34) SECONDS Fibrinogen 156 L (200-400) mg/dL Puncture Site pCO2 (35-45) mm/Hg pO2 (30-55) mm/Hg HCO3 (21-28) mmol/L ABG pH (7.35-7.45) ABG Total CO2 (22-28) mmol/L ABG O2 Saturation (95-98) % ABG Base Excess (-2.0-3.0) mmol/L ABG Hemoglobin (11.7-17.4) g/dL ABG Carboxyhemoglobin (0.5-1.5) % POC ABG HHb (Measured) (0.0-5.0) % ABG Methemoglobin (0.0-3.0) % Crescencio Test VBG pH (7.32-7.43) VBG pCO2 (40-60) mmHg VBG HCO3 mmol/L VBG Total CO2 (22-28) mmol/L VBG O2 Sat (Calc) (40-65) % VBG Base Excess (0.0-2.0) mmol/L VBG Potassium (3.6-5.2) mmol/L A-a O2 Difference mm/Hg Respiratory Index Hgb O2 Saturation (95.0-98.0) % Sodium (132-148) mmol/l Chloride (98-107) mmol/L Glucose (65-105) mg/dl Lactate (0.7-2.1) mmol/L Vent Mode Mechanical Rate FiO2 % Tidal Volume PEEP Crit Value Called To Crit Value Called By Crit Value Read Back Blood Gas Notified Time Potassium (3.6-5.2) mmol/L Carbon Dioxide (22-30) mmol/L Anion Gap (10-20) BUN (7-17) mg/dL Creatinine (0.7-1.2) mg/dL Est GFR ( Amer) Est GFR (Non-Af Amer) POC Glucose (mg/dL) 190 H 131 H (65-110) mg/dL Random Glucose (65-105) mg/dL Lactic Acid (0.7-2.1) mmol/L Calcium (8.6-10.4) mg/dl Total Bilirubin (0.2-1.3) mg/dL AST (14-36) U/L ALT (9-52) U/L Alkaline Phosphatase (38-126) U/L Total Protein (6.3-8.3) g/dL Albumin (3.5-5.0) g/dL Globulin (2.2-3.9) gm/dL Albumin/Globulin Ratio (1.0-2.1) Venous Blood Potassium (3.6-5.2) mmol/L Random Vancomycin ug/mL Laboratory Results - last 24 hr 03/29/17 03/29/17 03/29/17 11:09 11:57 17:47 WBC RBC Hgb Hct MCV MCH MCHC RDW Plt Count MPV Neut % (Auto) Lymph % (Auto) Surry % (Auto) Eos % (Auto) Baso % (Auto) Neut # Lymph # Sur[place] # Eos # Baso # PT 23.0 H D INR 2.0 D APTT 87 H D Fibrinogen 156 L Puncture Site pCO2 pO2 HCO3 ABG pH ABG Total CO2 ABG O2 Saturation ABG Base Excess ABG Hemoglobin ABG Carboxyhemoglobin POC ABG HHb (Measured) ABG Methemoglobin Crescencio Test VBG pH VBG pCO2 VBG HCO3 VBG Total CO2 VBG O2 Sat (Calc) VBG Base Excess VBG Potassium A-a O2 Difference Respiratory Index Hgb O2 Saturation Sodium Chloride Glucose Lactate Vent Mode Mechanical Rate FiO2 Tidal Volume PEEP Crit Value Called To Crit Value Called By Crit Value Read Back Blood Gas Notified Time Potassium Carbon Dioxide Anion Gap BUN Creatinine Est GFR ( Amer) Est GFR (Non-Af Amer) POC Glucose (mg/dL) 131 H 190 H Random Glucose Lactic Acid Calcium Total Bilirubin AST ALT Alkaline Phosphatase Total Protein Albumin Globulin Albumin/Globulin Ratio Venous Blood Potassium Random Vancomycin 03/29/17 03/29/17 03/30/17 23:24 23:52 04:52 WBC RBC Hgb Hct MCV MCH MCHC RDW Plt Count MPV Neut % (Auto) Lymph % (Auto) Surry % (Auto) Eos % (Auto) Baso % (Auto) Neut # Lymph # [place] # Eos # Baso # PT INR APTT Fibrinogen Puncture Site pCO2 pO2 39 HCO3 ABG pH ABG Total CO2 ABG O2 Saturation ABG Base Excess ABG Hemoglobin ABG Carboxyhemoglobin POC ABG HHb (Measured) ABG Methemoglobin Crescencio Test VBG pH 7.32 VBG pCO2 49 VBG HCO3 23.0 VBG Total CO2 26.7 VBG O2 Sat (Calc) 78.3 H VBG Base Excess -1.4 L VBG Potassium 3.8 A-a O2 Difference Respiratory Index Hgb O2 Saturation Sodium 123.0 L Chloride 89.0 L Glucose 233 H Lactate 4.7 H* Vent Mode Mechanical Rate FiO2 100.0 Tidal Volume PEEP 5 Crit Value Called To Ghazal rn Crit Value Called By Holli input output clerk Crit Value Read Back Y Blood Gas Notified Time 2333 Potassium Carbon Dioxide Anion Gap BUN Creatinine Est GFR ( Amer) Est GFR (Non-Af Amer) POC Glucose (mg/dL) 272 H 256 H Random Glucose Lactic Acid Calcium Total Bilirubin AST ALT Alkaline Phosphatase Total Protein Albumin Globulin Albumin/Globulin Ratio Venous Blood Potassium 3.8 Random Vancomycin 03/30/17 03/30/17 03/30/17 05:11 06:18 06:18 WBC 43.3 H* D RBC 2.46 L Hgb 8.5 L Hct 26.2 L MCV 106.3 H D MCH 34.4 H MCHC 32.4 L RDW 17.6 H Plt Count 74 L D MPV 11.4 Neut % (Auto) 94.6 H Lymph % (Auto) 2.9 L Surry % (Auto) 1.2 Eos % (Auto) 1.2 Baso % (Auto) 0.1 Neut # 41.0 H Lymph # 1.2 Surry # 0.5 Eos # 0.5 Baso # 0.0 PT INR APTT Fibrinogen Puncture Site Rr pCO2 35 pO2 79 L HCO3 25.2 ABG pH 7.45 ABG Total CO2 25.4 ABG O2 Saturation 100.6 H ABG Base Excess 0.4 ABG Hemoglobin 8.0 L ABG Carboxyhemoglobin 3.7 H POC ABG HHb (Measured) -0.6 L ABG Methemoglobin 1.8 Crescencio Test Pos VBG pH VBG pCO2 VBG HCO3 VBG Total CO2 VBG O2 Sat (Calc) VBG Base Excess VBG Potassium A-a O2 Difference 590.0 Respiratory Index 7.5 Hgb O2 Saturation 95.2 Sodium 120 L* Chloride 88 L Glucose Lactate Vent Mode Prvc Mechanical Rate 16 FiO2 100.0 Tidal Volume 400 PEEP 10 Crit Value Called To Crit Value Called By Crit Value Read Back Blood Gas Notified Time Potassium 3.9 Carbon Dioxide 24 Anion Gap 12 BUN 24 H Creatinine 0.9 Est GFR ( Amer) > 60 Est GFR (Non-Af Amer) > 60 POC Glucose (mg/dL) Random Glucose 188 H Lactic Acid Calcium 6.3 L Total Bilirubin 3.7 H AST 130 H D ALT 99 H D Alkaline Phosphatase 124 Total Protein 4.5 L Albumin 1.8 L Globulin 2.8 Albumin/Globulin Ratio 0.6 L Venous Blood Potassium Random Vancomycin 03/30/17 03/30/17 03/30/17 06:18 06:18 06:18 WBC RBC Hgb Hct MCV MCH MCHC RDW Plt Count MPV Neut % (Auto) Lymph % (Auto) [place] % (Auto) Eos % (Auto) Baso % (Auto) Neut # Lymph # [place] # Eos # Baso # PT 25.0 H INR 2.2 APTT 67 H D Fibrinogen 142 L Puncture Site pCO2 pO2 HCO3 ABG pH ABG Total CO2 ABG O2 Saturation ABG Base Excess ABG Hemoglobin ABG Carboxyhemoglobin POC ABG HHb (Measured) ABG Methemoglobin Crescencio Test VBG pH VBG pCO2 VBG HCO3 VBG Total CO2 VBG O2 Sat (Calc) VBG Base Excess VBG Potassium A-a O2 Difference Respiratory Index Hgb O2 Saturation Sodium Chloride Glucose Lactate Vent Mode Mechanical Rate FiO2 Tidal Volume PEEP Crit Value Called To Crit Value Called By Crit Value Read Back Blood Gas Notified Time Potassium Carbon Dioxide Anion Gap BUN Creatinine Est GFR ( Amer) Est GFR (Non-Af Amer) POC Glucose (mg/dL) Random Glucose Lactic Acid 4.1 H* Calcium Total Bilirubin AST ALT Alkaline Phosphatase Total Protein Albumin Globulin Albumin/Globulin Ratio Venous Blood Potassium Random Vancomycin 19.88 Fingerstick Blood Sugar Results: 256 Review of Systems - Review of Systems Systems not reviewed;Unavailable: Intubated Critical Care Progress Note - Nutrition Nutrition: Nutrition Category Date Time Status Heart Healthy Diet [DIET] Diets 03/17/17 Dinner Active Assessment/Plan - Assessment and Plan (Free Text) Assessment: Patient is a 61 year old female with increasing respiratory distress most likely 2/2 ARDS vs pulmonary edema. Septic Shock from UTI. Plan: Respiratory: Intubated RLL Pneumonia CXR 03/30 - Improving diffuse interstitial/ alveolar opacity bilaterally with persistent consolidation at right base. Lines and tubes unchanged. Chest CT w/o 03/27 - Marked bilateral pulmonary edema as seen on chest radiography. Small to moderate bilateral pleural effusions.Small to moderate perihepatic and perisplenic ascites. ABG - pCO2 35/pO2 79/HCO3 25.2/ pH 7.45 - vent settings 400/100/16/10 Hydrocortisone 100mg IV q8h Duoneb 3mL INH q6h : Septic Shock Dr. Mejia consulted Dr. Dos Santos consulted WBC increased to 43.3 from 25.5 - Bands decreased to 13 from 36 (03/29) from 27 (03/28) from 14 (03/27) Lactic Acid improved to 4.1 from 6.4 (03/28) ESBL E. Coli in urine culture (03/17). Dr. Dos Santos consulted repeat urine culture (03/26) - Proteus Mirabilis - continue Aztreonam 2gm IVPB q8h - discontinued - continue Vanco 1gm IVPB q12h - discontinued - started on Tigecycline 50mg IVPB q12h (started on 03/30) CV: Patient has been experiencing hypotension (septic shock) - Versed - Phenylephrine - ween down to off - Levophed - Vasopressin Once off of Phenylephrine, start tube feedings. Glucernia. Midodrine 5mg PO q8h GI: Albumin 1.8 - started on Albumin drip Hem: Dr. Neri consulted, help appreciated Hgb decreased to 8.5 from 9.4 (03/29) from 11.2 (03/28) Platelets 74 from 3 (03/29) - patient was trasfused 2 units of platelets (03/28) - transfused 1 more unit of platelets (03/29) Fibrinogen 142 from 156 (03/29) from 89 (03/28) - patient was given 5 units of cryoprecipitate yesterday 03/28 - if Fibrinogen falls below 100, transfuse another 5 units - continue to monitor T.Bili increased 3.7 from 3.0 (03/29) from 4.3 (03/28) Nephrology: Dr. Roe consulted, help appreciated - Dr. Flynn actively covering case Na decreased to 120 from 123 (03/29) Bicarb drip 150mEq in D5W at 60cc/hr - Discontinued Started on Hypertonic Saline 3% @ 15mL/hr - f/u BMP q4h - discontinue once Na is >126 Patient was +8L over last 24hours and total of +18L over previous 48hours Strict I's and O's Once off of Phenylephrine, will start to diuresis Endo: ISS Electrolytes: Mag 1.4 - repleted Phos 2.4 - repleted Prophylactic Care: hold VTE due to thrombocytopenia protonix and SCDs Case discussed with Dr. Lupe Haile Verónica PGY1 <Phillip Andrade - Last Filed: 03/30/17 16:38> CCU Objective - Vital Signs / Intake & Output Vital Signs (Last 4 hours): Vital Signs Pulse Resp BP Pulse Ox 03/30/17 16:03 83 22 108/67 100 03/30/17 16:00 77 21 100 03/30/17 15:00 85 26 H 124/67 100 03/30/17 14:15 119/71 03/30/17 14:00 82 25 H 119/71 100 03/30/17 13:00 92 H 27 H 138/80 100 Intake and Output (Last 8hrs): Intake & Output 03/30/17 03/30/17 03/30/17 06:59 14:59 22:59 Intake Total 2691.1 1482.8 Output Total 300 355 Balance 2391.1 1127.8 Weight 129 lb 3.054 oz Intake: IV 1533 661 Intake, IV Amount 1108.1 821.8 RIJ Distal 1 440 205 RIJ Distal 2 19.2 16.8 RIJ Distal 3 168.9 105 Right Medial IJ 30 Right Proximal IJ 2 480 465 Other 50 Output: Urine 300 355 Urethral (Duong) 355 Urine, Voided 300 Other: # Bowel Movements 1 - Medications Active Medications: Active Medications Generic Name Dose Route Start Last Admin Trade Name Freq PRN Reason Stop Dose Admin Albumin Human 12.5 gm 03/30/17 11:30 03/30/17 14:57 Albumin Human 25% (12.5 Gm/50 Ml) IV 03/30/17 21:31 12.5 gm Q2H [place] Administration Albuterol/Ipratropium 3 ml 03/30/17 14:00 03/30/17 14:38 Duoneb 3 Mg/0.5 Mg (3 Ml) Ud INH 3 ml RQ6 [place] Administration Hydrocortisone Sodium Succinate 100 mg 03/29/17 09:45 03/30/17 14:25 Solu-Cortef IV 100 mg Q8 [place] Administration Phenylephrine HCl 30 mg/ 253 mls @ 10.12 mls/hr 03/27/17 19:57 03/30/17 13:00 Dextrose IV 30 mcg/min .Q24H PRN 15.18 mls/hr TITRATE PER MD ORDER Titration Protocol 20 MCG/MIN Norepinephrine Bitartrate 8 mg 258 mls @ 7.74 mls/hr 03/27/17 23:58 03/30/17 08:48 / Dextrose IV 7.75 mcg/min .Q24H PRN 14.99 mls/hr TITRATE PER MD ORDER Administration Protocol 4 MCG/MIN Vasopressin 40 units/ Sodium 42 mls @ 0.63 mls/hr 03/28/17 11:30 03/30/17 14: 15 Chloride IV 0.04 units/min .Q24H [place] 2.52 mls/hr Protocol Administration 0.01 UNITS/MIN Tigecycline 50 mg/ Sodium 100 mls @ 100 mls/hr 03/30/17 07:00 03/30/17 06:06 Chloride IVPB 100 mls/hr Q12H [place] Administration Sodium Chloride 500 mls @ 15 mls/hr 03/30/17 12:00 03/30/17 12:15 Hypertonic Saline 3% IV 03/31/17 21:19 15 mls/hr ONCE ONE Administration Insulin Aspart 0 unit 03/28/17 12:00 03/30/17 13:20 Novolog SC 2 unit Q6 [place] Administration Protocol Midodrine 5 mg 03/29/17 14:00 03/30/17 14:28 Proamatine PO 5 mg Q8 [place] Administration Pantoprazole Sodium 40 mg 03/28/17 09:30 03/30/17 12:13 Protonix Inj IVP 40 mg Q12H [place] Administration Potassium Phos/Sodium Phos 1 pkt 03/30/17 11:45 03/30/17 13:29 Neutra-Phos PO 1 pkt BID [place] Administration - Patient Studies Lab Studies: Microbiology Studies 03/30/17 05:25 Gram Stain - Final Trachasp 03/27/17 11:25 Blood Culture - Preliminary Blood-Venous NO GROWTH AFTER 3 DAYS 03/27/17 11:05 Blood Culture - Preliminary Blood-Venous NO GROWTH AFTER 3 DAYS Lab Studies 03/30/17 03/30/17 03/30/17 Range/Units 11:47 06:18 06:18 WBC (4.8-10.8) K/uL RBC (3.80-5.20) Mil/uL Hgb (11.0-16.0) g/dL Hct (34.0-47.0) % MCV (81.0-99.0) fL MCH (27.0-31.0) pg MCHC (33.0-37.0) g/dL RDW (11.5-14.5) % Plt Count (130-400) K/uL MPV (7.2-11.7) fL Neut % (Auto) (50.0-75.0) % Lymph % (Auto) (20.0-40.0) % Surry % (Auto) (0.0-10.0) % Eos % (Auto) (0.0-4.0) % Baso % (Auto) (0.0-2.0) % Neut # (1.8-7.0) K/uL Lymph # (1.0-4.3) K/uL Surry # (0.0-0.8) K/uL Eos # (0.0-0.7) K/uL Baso # (0.0-0.2) K/uL Neutrophils % (Manual) (50-75) % Band Neutrophils % (0-2) % Lymphocytes % (Manual) (20-40) % Monocytes % (Manual) (0-10) % Platelet Estimate (NORMAL) Polychromasia Hypochromasia (manual) Anisocytosis (manual) Macrocytosis (manual) PT 25.0 H (9.7-12.2) SECONDS INR 2.2 APTT 67 H D (21-34) SECONDS Fibrinogen 142 L (200-400) mg/dL Puncture Site pCO2 (35-45) mm/Hg pO2 (30-55) mm/Hg HCO3 (21-28) mmol/L ABG pH (7.35-7.45) ABG Total CO2 (22-28) mmol/L ABG O2 Saturation (95-98) % ABG Base Excess (-2.0-3.0) mmol/L ABG Hemoglobin (11.7-17.4) g/dL ABG Carboxyhemoglobin (0.5-1.5) % POC ABG HHb (Measured) (0.0-5.0) % ABG Methemoglobin (0.0-3.0) % Crescencio Test VBG pH (7.32-7.43) VBG pCO2 (40-60) mmHg VBG HCO3 mmol/L VBG Total CO2 (22-28) mmol/L VBG O2 Sat (Calc) (40-65) % VBG Base Excess (0.0-2.0) mmol/L VBG Potassium (3.6-5.2) mmol/L A-a O2 Difference mm/Hg Respiratory Index Hgb O2 Saturation (95.0-98.0) % Sodium (132-148) mmol/l Chloride (98-107) mmol/L Glucose (65-105) mg/dl Lactate (0.7-2.1) mmol/L Vent Mode Mechanical Rate FiO2 % Tidal Volume PEEP Crit Value Called To Crit Value Called By Crit Value Read Back Blood Gas Notified Time Potassium (3.6-5.2) mmol/L Carbon Dioxide (22-30) mmol/L Anion Gap (10-20) BUN (7-17) mg/dL Creatinine (0.7-1.2) mg/dL Est GFR ( Amer) Est GFR (Non-Af Amer) POC Glucose (mg/dL) 207 H (65-110) mg/dL Random Glucose (65-105) mg/dL Lactic Acid 4.1 H* (0.7-2.1) mmol/L Calcium (8.6-10.4) mg/dl Phosphorus (2.5-4.5) mg/dL Magnesium (1.6-2.3) mg/dL Total Bilirubin (0.2-1.3) mg/dL AST (14-36) U/L ALT (9-52) U/L Alkaline Phosphatase (38-126) U/L Total Protein (6.3-8.3) g/dL Albumin (3.5-5.0) g/dL Globulin (2.2-3.9) gm/dL Albumin/Globulin Ratio (1.0-2.1) Venous Blood Potassium (3.6-5.2) mmol/L Random Vancomycin ug/mL 03/30/17 03/30/17 03/30/17 Range/Units 06:18 06:18 06:18 WBC 43.3 H* D (4.8-10.8) K/uL RBC 2.46 L (3.80-5.20) Mil/uL Hgb 8.5 L (11.0-16.0) g/dL Hct 26.2 L (34.0-47.0) % MCV 106.3 H D (81.0-99.0) fL MCH 34.4 H (27.0-31.0) pg MCHC 32.4 L (33.0-37.0) g/dL RDW 17.6 H (11.5-14.5) % Plt Count 74 L D (130-400) K/uL MPV 11.4 (7.2-11.7) fL Neut % (Auto) 94.6 H (50.0-75.0) % Lymph % (Auto) 2.9 L (20.0-40.0) % [place] % (Auto) 1.2 (0.0-10.0) % Eos % (Auto) 1.2 (0.0-4.0) % Baso % (Auto) 0.1 (0.0-2.0) % Neut # 41.0 H (1.8-7.0) K/uL Lymph # 1.2 (1.0-4.3) K/uL [place] # 0.5 (0.0-0.8) K/uL Eos # 0.5 (0.0-0.7) K/uL Baso # 0.0 (0.0-0.2) K/uL Neutrophils % (Manual) 83 H (50-75) % Band Neutrophils % 13 H* (0-2) % Lymphocytes % (Manual) 1 L (20-40) % Monocytes % (Manual) 3 (0-10) % Platelet Estimate Decreased L (NORMAL) Polychromasia Slight Hypochromasia (manual) Slight Anisocytosis (manual) Slight Macrocytosis (manual) Slight PT (9.7-12.2) SECONDS INR APTT (21-34) SECONDS Fibrinogen (200-400) mg/dL Puncture Site pCO2 (35-45) mm/Hg pO2 (30-55) mm/Hg HCO3 (21-28) mmol/L ABG pH (7.35-7.45) ABG Total CO2 (22-28) mmol/L ABG O2 Saturation (95-98) % ABG Base Excess (-2.0-3.0) mmol/L ABG Hemoglobin (11.7-17.4) g/dL ABG Carboxyhemoglobin (0.5-1.5) % POC ABG HHb (Measured) (0.0-5.0) % ABG Methemoglobin (0.0-3.0) % Crescencio Test VBG pH (7.32-7.43) VBG pCO2 (40-60) mmHg VBG HCO3 mmol/L VBG Total CO2 (22-28) mmol/L VBG O2 Sat (Calc) (40-65) % VBG Base Excess (0.0-2.0) mmol/L VBG Potassium (3.6-5.2) mmol/L A-a O2 Difference mm/Hg Respiratory Index Hgb O2 Saturation (95.0-98.0) % Sodium 120 L* (132-148) mmol/l Chloride 88 L (98-107) mmol/L Glucose (65-105) mg/dl Lactate (0.7-2.1) mmol/L Vent Mode Mechanical Rate FiO2 % Tidal Volume PEEP Crit Value Called To Crit Value Called By Crit Value Read Back Blood Gas Notified Time Potassium 3.9 (3.6-5.2) mmol/L Carbon Dioxide 24 (22-30) mmol/L Anion Gap 12 (10-20) BUN 24 H (7-17) mg/dL Creatinine 0.9 (0.7-1.2) mg/dL Est GFR ( Amer) > 60 Est GFR (Non-Af Amer) > 60 POC Glucose (mg/dL) (65-110) mg/dL Random Glucose 188 H (65-105) mg/dL Lactic Acid (0.7-2.1) mmol/L Calcium 6.3 L (8.6-10.4) mg/dl Phosphorus 2.4 L (2.5-4.5) mg/dL Magnesium 1.4 L (1.6-2.3) mg/dL Total Bilirubin 3.7 H (0.2-1.3) mg/dL AST 130 H D (14-36) U/L ALT 99 H D (9-52) U/L Alkaline Phosphatase 124 (38-126) U/L Total Protein 4.5 L (6.3-8.3) g/dL Albumin 1.8 L (3.5-5.0) g/dL Globulin 2.8 (2.2-3.9) gm/dL Albumin/Globulin Ratio 0.6 L (1.0-2.1) Venous Blood Potassium (3.6-5.2) mmol/L Random Vancomycin 19.88 ug/mL 03/30/17 03/30/17 03/29/17 Range/Units 05:11 04:52 23:52 WBC (4.8-10.8) K/uL RBC (3.80-5.20) Mil/uL Hgb (11.0-16.0) g/dL Hct (34.0-47.0) % MCV (81.0-99.0) fL MCH (27.0-31.0) pg MCHC (33.0-37.0) g/dL RDW (11.5-14.5) % Plt Count (130-400) K/uL MPV (7.2-11.7) fL Neut % (Auto) (50.0-75.0) % Lymph % (Auto) (20.0-40.0) % [place] % (Auto) (0.0-10.0) % Eos % (Auto) (0.0-4.0) % Baso % (Auto) (0.0-2.0) % Neut # (1.8-7.0) K/uL Lymph # (1.0-4.3) K/uL [place] # (0.0-0.8) K/uL Eos # (0.0-0.7) K/uL Baso # (0.0-0.2) K/uL Neutrophils % (Manual) (50-75) % Band Neutrophils % (0-2) % Lymphocytes % (Manual) (20-40) % Monocytes % (Manual) (0-10) % Platelet Estimate (NORMAL) Polychromasia Hypochromasia (manual) Anisocytosis (manual) Macrocytosis (manual) PT (9.7-12.2) SECONDS INR APTT (21-34) SECONDS Fibrinogen (200-400) mg/dL Puncture Site Rr pCO2 35 (35-45) mm/Hg pO2 79 L (30-55) mm/Hg HCO3 25.2 (21-28) mmol/L ABG pH 7.45 (7.35-7.45) ABG Total CO2 25.4 (22-28) mmol/L ABG O2 Saturation 100.6 H (95-98) % ABG Base Excess 0.4 (-2.0-3.0) mmol/L ABG Hemoglobin 8.0 L (11.7-17.4) g/dL ABG Carboxyhemoglobin 3.7 H (0.5-1.5) % POC ABG HHb (Measured) -0.6 L (0.0-5.0) % ABG Methemoglobin 1.8 (0.0-3.0) % Crescencio Test Pos VBG pH (7.32-7.43) VBG pCO2 (40-60) mmHg VBG HCO3 mmol/L VBG Total CO2 (22-28) mmol/L VBG O2 Sat (Calc) (40-65) % VBG Base Excess (0.0-2.0) mmol/L VBG Potassium (3.6-5.2) mmol/L A-a O2 Difference 590.0 mm/Hg Respiratory Index 7.5 Hgb O2 Saturation 95.2 (95.0-98.0) % Sodium (132-148) mmol/l Chloride (98-107) mmol/L Glucose (65-105) mg/dl Lactate (0.7-2.1) mmol/L Vent Mode Prvc Mechanical Rate 16 FiO2 100.0 % Tidal Volume 400 PEEP 10 Crit Value Called To Crit Value Called By Crit Value Read Back Blood Gas Notified Time Potassium (3.6-5.2) mmol/L Carbon Dioxide (22-30) mmol/L Anion Gap (10-20) BUN (7-17) mg/dL Creatinine (0.7-1.2) mg/dL Est GFR ( Amer) Est GFR (Non-Af Amer) POC Glucose (mg/dL) 256 H 272 H (65-110) mg/dL Random Glucose (65-105) mg/dL Lactic Acid (0.7-2.1) mmol/L Calcium (8.6-10.4) mg/dl Phosphorus (2.5-4.5) mg/dL Magnesium (1.6-2.3) mg/dL Total Bilirubin (0.2-1.3) mg/dL AST (14-36) U/L ALT (9-52) U/L Alkaline Phosphatase (38-126) U/L Total Protein (6.3-8.3) g/dL Albumin (3.5-5.0) g/dL Globulin (2.2-3.9) gm/dL Albumin/Globulin Ratio (1.0-2.1) Venous Blood Potassium (3.6-5.2) mmol/L Random Vancomycin ug/mL 03/29/17 03/29/17 Range/Units 23:24 17:47 WBC (4.8-10.8) K/uL RBC (3.80-5.20) Mil/uL Hgb (11.0-16.0) g/dL Hct (34.0-47.0) % MCV (81.0-99.0) fL MCH (27.0-31.0) pg MCHC (33.0-37.0) g/dL RDW (11.5-14.5) % Plt Count (130-400) K/uL MPV (7.2-11.7) fL Neut % (Auto) (50.0-75.0) % Lymph % (Auto) (20.0-40.0) % [place] % (Auto) (0.0-10.0) % Eos % (Auto) (0.0-4.0) % Baso % (Auto) (0.0-2.0) % Neut # (1.8-7.0) K/uL Lymph # (1.0-4.3) K/uL [place] # (0.0-0.8) K/uL Eos # (0.0-0.7) K/uL Baso # (0.0-0.2) K/uL Neutrophils % (Manual) (50-75) % Band Neutrophils % (0-2) % Lymphocytes % (Manual) (20-40) % Monocytes % (Manual) (0-10) % Platelet Estimate (NORMAL) Polychromasia Hypochromasia (manual) Anisocytosis (manual) Macrocytosis (manual) PT (9.7-12.2) SECONDS INR APTT (21-34) SECONDS Fibrinogen (200-400) mg/dL Puncture Site pCO2 (35-45) mm/Hg pO2 39 (30-55) mm/Hg HCO3 (21-28) mmol/L ABG pH (7.35-7.45) ABG Total CO2 (22-28) mmol/L ABG O2 Saturation (95-98) % ABG Base Excess (-2.0-3.0) mmol/L ABG Hemoglobin (11.7-17.4) g/dL ABG Carboxyhemoglobin (0.5-1.5) % POC ABG HHb (Measured) (0.0-5.0) % ABG Methemoglobin (0.0-3.0) % Crescencio Test VBG pH 7.32 (7.32-7.43) VBG pCO2 49 (40-60) mmHg VBG HCO3 23.0 mmol/L VBG Total CO2 26.7 (22-28) mmol/L VBG O2 Sat (Calc) 78.3 H (40-65) % VBG Base Excess -1.4 L (0.0-2.0) mmol/L VBG Potassium 3.8 (3.6-5.2) mmol/L A-a O2 Difference mm/Hg Respiratory Index Hgb O2 Saturation (95.0-98.0) % Sodium 123.0 L (132-148) mmol/l Chloride 89.0 L (98-107) mmol/L Glucose 233 H (65-105) mg/dl Lactate 4.7 H* (0.7-2.1) mmol/L Vent Mode Mechanical Rate FiO2 100.0 % Tidal Volume PEEP 5 Crit Value Called To Ghazal rn Crit Value Called By Holli input output clerk Crit Value Read Back Y Blood Gas Notified Time 2333 Potassium (3.6-5.2) mmol/L Carbon Dioxide (22-30) mmol/L Anion Gap (10-20) BUN (7-17) mg/dL Creatinine (0.7-1.2) mg/dL Est GFR ( Amer) Est GFR (Non-Af Amer) POC Glucose (mg/dL) 190 H (65-110) mg/dL Random Glucose (65-105) mg/dL Lactic Acid (0.7-2.1) mmol/L Calcium (8.6-10.4) mg/dl Phosphorus (2.5-4.5) mg/dL Magnesium (1.6-2.3) mg/dL Total Bilirubin (0.2-1.3) mg/dL AST (14-36) U/L ALT (9-52) U/L Alkaline Phosphatase (38-126) U/L Total Protein (6.3-8.3) g/dL Albumin (3.5-5.0) g/dL Globulin (2.2-3.9) gm/dL Albumin/Globulin Ratio (1.0-2.1) Venous Blood Potassium 3.8 (3.6-5.2) mmol/L Random Vancomycin ug/mL Laboratory Results - last 24 hr 03/29/17 03/29/17 03/29/17 17:47 23:24 23:52 WBC RBC Hgb Hct MCV MCH MCHC RDW Plt Count MPV Neut % (Auto) Lymph % (Auto) [place] % (Auto) Eos % (Auto) Baso % (Auto) Neut # Lymph # [place] # Eos # Baso # Neutrophils % (Manual) Band Neutrophils % Lymphocytes % (Manual) Monocytes % (Manual) Platelet Estimate Polychromasia Hypochromasia (manual) Anisocytosis (manual) Macrocytosis (manual) PT INR APTT Fibrinogen Puncture Site pCO2 pO2 39 HCO3 ABG pH ABG Total CO2 ABG O2 Saturation ABG Base Excess ABG Hemoglobin ABG Carboxyhemoglobin POC ABG HHb (Measured) ABG Methemoglobin Crescencio Test VBG pH 7.32 VBG pCO2 49 VBG HCO3 23.0 VBG Total CO2 26.7 VBG O2 Sat (Calc) 78.3 H VBG Base Excess -1.4 L VBG Potassium 3.8 A-a O2 Difference Respiratory Index Hgb O2 Saturation Sodium 123.0 L Chloride 89.0 L Glucose 233 H Lactate 4.7 H* Vent Mode Mechanical Rate FiO2 100.0 Tidal Volume PEEP 5 Crit Value Called To Ghazal rn Crit Value Called By Holli input output clerk Crit Value Read Back Y Blood Gas Notified Time 2333 Potassium Carbon Dioxide Anion Gap BUN Creatinine Est GFR ( Amer) Est GFR (Non-Af Amer) POC Glucose (mg/dL) 190 H 272 H Random Glucose Lactic Acid Calcium Phosphorus Magnesium Total Bilirubin AST ALT Alkaline Phosphatase Total Protein Albumin Globulin Albumin/Globulin Ratio Venous Blood Potassium 3.8 Random Vancomycin 03/30/17 03/30/17 03/30/17 04:52 05:11 06:18 WBC 43.3 H* D RBC 2.46 L Hgb 8.5 L Hct 26.2 L MCV 106.3 H D MCH 34.4 H MCHC 32.4 L RDW 17.6 H Plt Count 74 L D MPV 11.4 Neut % (Auto) 94.6 H Lymph % (Auto) 2.9 L [place] % (Auto) 1.2 Eos % (Auto) 1.2 Baso % (Auto) 0.1 Neut # 41.0 H Lymph # 1.2 Surry # 0.5 Eos # 0.5 Baso # 0.0 Neutrophils % (Manual) 83 H Band Neutrophils % 13 H* Lymphocytes % (Manual) 1 L Monocytes % (Manual) 3 Platelet Estimate Decreased L Polychromasia Slight Hypochromasia (manual) Slight Anisocytosis (manual) Slight Macrocytosis (manual) Slight PT INR APTT Fibrinogen Puncture Site Rr pCO2 35 pO2 79 L HCO3 25.2 ABG pH 7.45 ABG Total CO2 25.4 ABG O2 Saturation 100.6 H ABG Base Excess 0.4 ABG Hemoglobin 8.0 L ABG Carboxyhemoglobin 3.7 H POC ABG HHb (Measured) -0.6 L ABG Methemoglobin 1.8 Crescencio Test Pos VBG pH VBG pCO2 VBG HCO3 VBG Total CO2 VBG O2 Sat (Calc) VBG Base Excess VBG Potassium A-a O2 Difference 590.0 Respiratory Index 7.5 Hgb O2 Saturation 95.2 Sodium Chloride Glucose Lactate Vent Mode Prvc Mechanical Rate 16 FiO2 100.0 Tidal Volume 400 PEEP 10 Crit Value Called To Crit Value Called By Crit Value Read Back Blood Gas Notified Time Potassium Carbon Dioxide Anion Gap BUN Creatinine Est GFR ( Amer) Est GFR (Non-Af Amer) POC Glucose (mg/dL) 256 H Random Glucose Lactic Acid Calcium Phosphorus Magnesium Total Bilirubin AST ALT Alkaline Phosphatase Total Protein Albumin Globulin Albumin/Globulin Ratio Venous Blood Potassium Random Vancomycin 03/30/17 03/30/17 03/30/17 06:18 06:18 06:18 WBC RBC Hgb Hct MCV MCH MCHC RDW Plt Count MPV Neut % (Auto) Lymph % (Auto) [place] % (Auto) Eos % (Auto) Baso % (Auto) Neut # Lymph # [place] # Eos # Baso # Neutrophils % (Manual) Band Neutrophils % Lymphocytes % (Manual) Monocytes % (Manual) Platelet Estimate Polychromasia Hypochromasia (manual) Anisocytosis (manual) Macrocytosis (manual) PT 25.0 H INR 2.2 APTT 67 H D Fibrinogen 142 L Puncture Site pCO2 pO2 HCO3 ABG pH ABG Total CO2 ABG O2 Saturation ABG Base Excess ABG Hemoglobin ABG Carboxyhemoglobin POC ABG HHb (Measured) ABG Methemoglobin Crescencio Test VBG pH VBG pCO2 VBG HCO3 VBG Total CO2 VBG O2 Sat (Calc) VBG Base Excess VBG Potassium A-a O2 Difference Respiratory Index Hgb O2 Saturation Sodium 120 L* Chloride 88 L Glucose Lactate Vent Mode Mechanical Rate FiO2 Tidal Volume PEEP Crit Value Called To Crit Value Called By Crit Value Read Back Blood Gas Notified Time Potassium 3.9 Carbon Dioxide 24 Anion Gap 12 BUN 24 H Creatinine 0.9 Est GFR ( Amer) > 60 Est GFR (Non-Af Amer) > 60 POC Glucose (mg/dL) Random Glucose 188 H Lactic Acid Calcium 6.3 L Phosphorus 2.4 L Magnesium 1.4 L Total Bilirubin 3.7 H AST 130 H D ALT 99 H D Alkaline Phosphatase 124 Total Protein 4.5 L Albumin 1.8 L Globulin 2.8 Albumin/Globulin Ratio 0.6 L Venous Blood Potassium Random Vancomycin 19.88 03/30/17 03/30/17 06:18 11:47 WBC RBC Hgb Hct MCV MCH MCHC RDW Plt Count MPV Neut % (Auto) Lymph % (Auto) [place] % (Auto) Eos % (Auto) Baso % (Auto) Neut # Lymph # [place] # Eos # Baso # Neutrophils % (Manual) Band Neutrophils % Lymphocytes % (Manual) Monocytes % (Manual) Platelet Estimate Polychromasia Hypochromasia (manual) Anisocytosis (manual) Macrocytosis (manual) PT INR APTT Fibrinogen Puncture Site pCO2 pO2 HCO3 ABG pH ABG Total CO2 ABG O2 Saturation ABG Base Excess ABG Hemoglobin ABG Carboxyhemoglobin POC ABG HHb (Measured) ABG Methemoglobin Crescencio Test VBG pH VBG pCO2 VBG HCO3 VBG Total CO2 VBG O2 Sat (Calc) VBG Base Excess VBG Potassium A-a O2 Difference Respiratory Index Hgb O2 Saturation Sodium Chloride Glucose Lactate Vent Mode Mechanical Rate FiO2 Tidal Volume PEEP Crit Value Called To Crit Value Called By Crit Value Read Back Blood Gas Notified Time Potassium Carbon Dioxide Anion Gap BUN Creatinine Est GFR ( Amer) Est GFR (Non-Af Amer) POC Glucose (mg/dL) 207 H Random Glucose Lactic Acid 4.1 H* Calcium Phosphorus Magnesium Total Bilirubin AST ALT Alkaline Phosphatase Total Protein Albumin Globulin Albumin/Globulin Ratio Venous Blood Potassium Random Vancomycin Critical Care Progress Note - Nutrition Nutrition: Nutrition Category Date Time Status Heart Healthy Diet [DIET] Diets 03/17/17 Dinner Active Attending/Attestation - Attestation I have personally seen and examined this patient.: Yes I have fully participated in the care of the patient.: Yes I have reviewed all pertinent clinical information: Yes Notes (Text): 03/30/17 16:37 I have seen and examined the patient. Medical records, lab studies, and imaging were reviewed by me and a management plan was formulated on multidisciplinary rounds with resident Dr. Davis. I agree with their documented assessment and plan. 61yo F. PMMHx ETOH abuse. p/w septic shock, ARDS. Neuro: minimal response, no sedation. Pulm: acute respiratory failure, now in severe ARDS on vent. lung protective strategies. CV: septic shock on 3 pressors, weaning off. Hem: severe thrombocytopenia Renal: hyponatremia starting on 3% hypertonic saline. Endo: SISS q6h GI: [email or web address] ID: septic shock, UTI and RLL PNA. Started on Tigecycline (03/29). DVT proph - SCD's, if platelet count stabilizes will start a/c GI proph - protonix duong for strict I/O's during acute illness Code status - full code Critical Care Time spent 45 minutes Multi-disciplinary rounds were performed with house staff, nursing, speech therapy, respiratory therapy, pharmacy and nutrition with integrated input from the primary team/attending and other consulting services. The documented time is cumulative and includes review of patient data/exams/labs/chart review and examination of the patient on rounds and throughout the day; time is exclusive of any procedures or teaching time.
[2017-03-30] MEDS: Sodium Bicarbonate 8.4% 150 MEQ in Dextrose 5% In Water 850 ML IV SCH (08:47)
[2017-03-30 08:50] LABS: NEUTROPHIL 83 % (50-75); TOTAL CELLS COUNTED 100
[2017-03-30 10:01] LABS: MAGNESIUM 1.4 mg/dL (1.6-2.3); PHOSPHOROUS 2.4 mg/dL (2.5-4.5)
--- NOTE | 2017-03-30 11:01 | RAD ---
HISTORY: intubated COMPARISON: 03/29/2017 FINDINGS: LUNGS: There is diffuse mixed interstitial/alveolar opacity with pedro consolidation at the right lung base. The extent of opacity elsewhere has improved when compared to the prior examination. Possible resolving pulmonary edema. Infectious etiology must be considered as well. . PLEURA: Possible minimal right pleural effusion. No evidence of left pleural effusion. No pneumothorax. CARDIOVASCULAR: ET tube, NG tube and right internal jugular central venous catheter unchanged. OSSEOUS STRUCTURES: No significant abnormalities. VISUALIZED UPPER ABDOMEN: Normal. OTHER FINDINGS: None. IMPRESSION: Improving diffuse interstitial/ alveolar opacity bilaterally with persistent consolidation at right base. Lines and tubes unchanged.
[2017-03-30] MEDS ORDERED: Albuterol-Ipratrop 3 mg / 0.5 (3 ml) UD INH SCH (11:30)
[2017-03-30] MEDS: Magnesium Sulfate 1 gm in D5W 1 GM/100 ML BAG IVPB SCH ×2 (11:35→12:11)
[2017-03-30] MEDS ORDERED: Sodium Chloride 3% 500 ML IV ONE ×2 (12:00→21:20)
[2017-03-30] MEDS: Albumin Human 25% (12.5 gm/50 ml) IV SCH ×6 (13:00→21:25)
[2017-03-30] MEDS: Potassium & Sodium Phosphate PO SCH ×2 (13:29→19:05)
--- NOTE | 2017-03-30 16:29 | CP.PCM.PN ---
Subjective - Date & Time of Evaluation Date of Evaluation: 03/30/17 Time of Evaluation: 16:27 - Subjective Subjective: Follow up Nephrology Consultation: Assessment: critical acute kidney injury with oliguria, lactic acidosis, severe thrombocytopenia, septic shock, ARDS respi failure with bilateral pneumonia Hyponatremia likely due to cirrhosis Hypomagnesemia, Anemia diabetes Mellitus hypertension, ex smoker, chronic etoh abuse and chronic pancreatitis UTI, back pain Plan no acute need for renal replacement therapy at this time but may need soon. avoid correction in serum Na >6-8 meq/24 hr. will give 3% hypertonic saline @15 ml/hr. monitor Na q 4, d/c the drip once serum Na 126. will re-assess therapy for low Na thereafter d/c bicarb drip as pH 7.45 Monitor Input/Output, daily weights and renal function with basic metabolic panel Glycemic control Further work up/management as per primary team dose meds for reduced GFR. Avoid fleets enema/magnesium based laxatives. Avoid nephrotoxins/NSAIDs/ iodinated contrast (unless needed emergently) Further work up for as per primary team agree with diuretics once hemodynamics stable Thanks for allowing me to participate in care of your patient. Will follow patient with you. Please call if any Qs. d/w ICU team Dr Jaya Flynn Office: [phone] Chief Complaint; unable Reason for consult: hyponatremia HPI: Pt is a 61 y/o F with hx of diabetes Mellitus hypertension, ex smoker, chronic etoh abuse and chronic pancreatitis initially presented with complaints of dysuria and being treated with antibiotics for UTI. she was getting D5/0.45% saline and noted to have decreased serum Na to 124 hence renal consult requested pt intubated and remains on pressors. BP better Physical Examination: General Appearance: ill appearing, intubated orally , on ARDS protocol Vitals reviewed and noted as below Head; Atraumatic, normocephalic ENT: no ulcers no thrush. Tongue is midline/dry. Oropharynx: no rash or ulcers. Neck; supple no lymphadenopathy, no thyromegaly or bruit Lungs: normal respiratory rate/effort. Breath sounds bilateral with crackles and few wheeze Heart: Normal rate. s1s2 normal. No rub or gallop. Extremities: 2-3+ edema. No varicose veins Neurological: Patient is sedated Skin: Warm and dry. Normal turgor. No rash. Palpitation: Normal elasticity for age Abdomen: Abdomen is soft. Bowel sounds +. There is no abdominal tenderness, no guarding/rigidity no organomegaly has ascites Psych: unable MSK: no joint tenderness or swelling. Digits and nails normal, no deformity : kidney or bladder not palpable. has duong + Labs/imaging/EKG reviewed. Past medical history, past surgical history, family history, social history, allergy reviewed and noted as below Family hx: no hx of CKD. Rest non-contributory recent echo: normal LVEF CT abdomen: chronic pancreatitis, liver disease, increased echogenic kidneys. has compression fractures in vertebra Objective - Vital Signs/Intake and Output Vital Signs (last 24 hours): Temp Pulse Resp BP Pulse Ox 98.9 F 83 22 108/67 100 03/30/17 08:00 03/30/17 16:03 03/30/17 16:03 03/30/17 16:03 03/30/17 16:03 Intake and Output: 03/30/17 03/30/17 06:59 18:59 Intake Total 4321.3 1482.8 Output Total 300 355 Balance 4021.3 1127.8 - Medications Medications: Current Medications Albumin Human (Albumin Human 25% (12.5 Gm/50 Ml)) 12.5 gm IV Q2H [facility] Stop: 03/30/17 21:31 Last Admin: 03/30/17 14:57 Dose: 12.5 gm Albuterol/Ipratropium (Duoneb 3 Mg/0.5 Mg (3 Ml) Ud) 3 ml INH RQ6 [facility] Last Admin: 03/30/17 14:38 Dose: 3 ml Hydrocortisone Sodium Succinate (Solu-Cortef) 100 mg IV Q8 [facility] Last Admin: 03/30/17 14:25 Dose: 100 mg Phenylephrine HCl 30 mg/ (Dextrose) 253 mls @ 10.12 mls/hr IV .Q24H PRN; Protocol; 20 MCG/MIN PRN Reason: TITRATE PER MD ORDER Last Titration: 03/30/17 13:00 Dose: 30 mcg/min, 15.18 mls/hr Norepinephrine Bitartrate 8 mg (/ Dextrose) 258 mls @ 7.74 mls/hr IV .Q24H PRN ; Protocol; 4 MCG/MIN PRN Reason: TITRATE PER MD ORDER Last Admin: 03/30/17 08:48 Dose: 7.75 mcg/min, 14.99 mls/hr Vasopressin 40 units/ Sodium (Chloride) 42 mls @ 0.63 mls/hr IV .Q24H [place]; 0.01 UNITS/MIN PRN Reason: Protocol Last Admin: 03/30/17 14:15 Dose: 0.04 units/min, 2.52 mls/hr Tigecycline 50 mg/ Sodium (Chloride) 100 mls @ 100 mls/hr IVPB Q12H [facility] Last Admin: 03/30/17 06:06 Dose: 100 mls/hr Sodium Chloride (Hypertonic Saline 3%) 500 mls @ 15 mls/hr IV ONCE ONE Stop: 03/31/17 21:19 Last Admin: 03/30/17 12:15 Dose: 15 mls/hr Insulin Aspart (Novolog) 0 unit SC Q6 [place] PRN Reason: Protocol Last Admin: 03/30/17 13:20 Dose: 2 unit Midodrine (Proamatine) 5 mg PO Q8 [facility] Last Admin: 03/30/17 14:28 Dose: 5 mg Pantoprazole Sodium (Protonix Inj) 40 mg IVP Q12H [facility] Last Admin: 03/30/17 12:13 Dose: 40 mg Potassium Phos/Sodium Phos (Neutra-Phos) 1 pkt PO BID [facility] Last Admin: 03/30/17 13:29 Dose: 1 pkt - Labs Labs: 03/30/17 06:18 03/30/17 06:18 PT 25.0 SECONDS (9.7-12.2) H 03/30/17 06:18 INR 2.2 03/30/17 06:18 APTT 67 SECONDS (21-34) H D 03/30/17 06:18
--- NOTE | 2017-03-30 16:54 | CP.PCM.PN ---
Subjective - Date & Time of Evaluation Date of Evaluation: 03/30/17 Time of Evaluation: 09:00 - Subjective Subjective: intubated in icu iv rx in progress Tygacil added possible esbl ? allergy PCN Objective - Vital Signs/Intake and Output Vital Signs (last 24 hours): Temp Pulse Resp BP Pulse Ox 98.9 F 83 22 108/67 100 03/30/17 08:00 03/30/17 16:03 03/30/17 16:03 03/30/17 16:03 03/30/17 16:03 Intake and Output: 03/30/17 03/30/17 06:59 18:59 Intake Total 4321.3 1482.8 Output Total 300 355 Balance 4021.3 1127.8 - Medications Medications: Current Medications Albumin Human (Albumin Human 25% (12.5 Gm/50 Ml)) 12.5 gm IV Q2H [place] Stop: 03/30/17 21:31 Last Admin: 03/30/17 14:57 Dose: 12.5 gm Albuterol/Ipratropium (Duoneb 3 Mg/0.5 Mg (3 Ml) Ud) 3 ml INH RQ6 [place] Last Admin: 03/30/17 14:38 Dose: 3 ml Hydrocortisone Sodium Succinate (Solu-Cortef) 100 mg IV Q8 [place] Last Admin: 03/30/17 14:25 Dose: 100 mg Phenylephrine HCl 30 mg/ (Dextrose) 253 mls @ 10.12 mls/hr IV .Q24H PRN; Protocol; 20 MCG/MIN PRN Reason: TITRATE PER MD ORDER Last Titration: 03/30/17 13:00 Dose: 30 mcg/min, 15.18 mls/hr Norepinephrine Bitartrate 8 mg (/ Dextrose) 258 mls @ 7.74 mls/hr IV .Q24H PRN ; Protocol; 4 MCG/MIN PRN Reason: TITRATE PER MD ORDER Last Admin: 03/30/17 08:48 Dose: 7.75 mcg/min, 14.99 mls/hr Vasopressin 40 units/ Sodium (Chloride) 42 mls @ 0.63 mls/hr IV .Q24H [place]; 0.01 UNITS/MIN PRN Reason: Protocol Last Admin: 03/30/17 14:15 Dose: 0.04 units/min, 2.52 mls/hr Tigecycline 50 mg/ Sodium (Chloride) 100 mls @ 100 mls/hr IVPB Q12H [facility] Last Admin: 03/30/17 06:06 Dose: 100 mls/hr Sodium Chloride (Hypertonic Saline 3%) 500 mls @ 15 mls/hr IV ONCE ONE Stop: 03/31/17 21:19 Last Admin: 03/30/17 12:15 Dose: 15 mls/hr Insulin Aspart (Novolog) 0 unit SC Q6 [facility] PRN Reason: Protocol Last Admin: 03/30/17 13:20 Dose: 2 unit Midodrine (Proamatine) 5 mg PO Q8 [facility] Last Admin: 03/30/17 14:28 Dose: 5 mg Pantoprazole Sodium (Protonix Inj) 40 mg IVP Q12H [facility] Last Admin: 03/30/17 12:13 Dose: 40 mg Potassium Phos/Sodium Phos (Neutra-Phos) 1 pkt PO BID [facility] Last Admin: 03/30/17 13:29 Dose: 1 pkt - Labs Labs: 03/30/17 06:18 03/30/17 06:18 PT 25.0 SECONDS (9.7-12.2) H 03/30/17 06:18 INR 2.2 03/30/17 06:18 APTT 67 SECONDS (21-34) H D 03/30/17 06:18 - Constitutional Appears: Confused, Cachectic, Chronically Ill - Head Exam Head Exam: NORMOCEPHALIC - Eye Exam Eye Exam: absent: PERRL - ENT Exam ENT Exam: Mucous Membranes Dry - Neck Exam Neck Exam: absent: Lymphadenopathy - Respiratory Exam Respiratory Exam: Decreased Breath Sounds - Cardiovascular Exam Cardiovascular Exam: REGULAR RHYTHM - GI/Abdominal Exam GI & Abdominal Exam: Distended - Rectal Exam Rectal Exam: Deferred - Exam Exam: NORMAL INSPECTION - Extremities Exam Extremities Exam: absent: Pedal Edema - Back Exam Back Exam: absent: CVA tenderness (L), CVA tenderness (R) - Neurological Exam Neurological Exam: Altered Assessment and Plan (1) Difficulty urinating Status: Acute (2) Difficulty walking Status: Acute (3) UTI (urinary tract infection) Status: Acute
[2017-03-30 17:18] LABS: ABG ALLEN TEST POS; ABG MECHANICAL RATE 16; ARTERIAL BLOOD GAS MODE PRVC; ARTERIAL BLOOD HGB O2 SAT 96.8 % (95.0-98.0); ATERIAL BLOOD GAS PEEP 18; CARBOXYHEMOGLOBIN 1.7 % (0.5-1.5); DRAW SITE RBA; HHB -0.3 % (0.0-5.0); METHEMOGLOBIN 1.7 % (0.0-3.0)
--- NOTE | 2017-03-30 19:24 | CARD ---
APPROVED REPORT EKG Measurement Heart [id number] MA [id number] [id number] <Conclusion> Sinus tachycardia T wave abnormality, consider anterolateral ischemia Abnormal ECG
--- NOTE | 2017-03-30 19:27 | CARD ---
APPROVED REPORT EKG Measurement Heart [id number] <Conclusion> Sinus tachycardia with frequent premature ventricular complexes Low voltage QRS ST & Marked T wave abnormality, consider anterolateral ischemia Prolonged QT Abnormal ECG
--- NOTE | 2017-03-30 22:38 | CP.PCM.PN ---
Subjective - Date & Time of Evaluation Date of Evaluation: 03/30/17 Time of Evaluation: 19:45 - Subjective Subjective: Vented Objective - Vital Signs/Intake and Output Vital Signs (last 24 hours): Temp Pulse Resp BP Pulse Ox 98.9 F 80 19 113/60 100 03/30/17 08:00 03/30/17 19:00 03/30/17 19:00 03/30/17 19:00 03/30/17 19:00 Intake and Output: 03/30/17 03/31/17 18:59 06:59 Intake Total 1821.0 232.5 Output Total 500 40 Balance 1321.0 192.5 - Medications Medications: Current Medications Albuterol/Ipratropium (Duoneb 3 Mg/0.5 Mg (3 Ml) Ud) 3 ml INH RQ6 [place] Last Admin: 03/30/17 20:51 Dose: 3 ml Hydrocortisone Sodium Succinate (Solu-Cortef) 100 mg IV Q8 [place] Last Admin: 03/30/17 21:23 Dose: 100 mg Phenylephrine HCl 30 mg/ (Dextrose) 253 mls @ 10.12 mls/hr IV .Q24H PRN; Protocol; 20 MCG/MIN PRN Reason: TITRATE PER MD ORDER Last Titration: 03/30/17 15:00 Dose: 0 mcg/min, 0 mls/hr Norepinephrine Bitartrate 8 mg (/ Dextrose) 258 mls @ 7.74 mls/hr IV .Q24H PRN ; Protocol; 4 MCG/MIN PRN Reason: TITRATE PER MD ORDER Last Admin: 03/30/17 08:48 Dose: 7.75 mcg/min, 14.99 mls/hr Vasopressin 40 units/ Sodium (Chloride) 42 mls @ 0.63 mls/hr IV .Q24H [place]; 0.01 UNITS/MIN PRN Reason: Protocol Last Titration: 03/30/17 18:00 Dose: 0.02 units/min, 1.26 mls/hr Tigecycline 50 mg/ Sodium (Chloride) 100 mls @ 100 mls/hr IVPB Q12H [place] Last Admin: 03/30/17 19:05 Dose: 100 mls/hr Sodium Chloride (Hypertonic Saline 3%) 500 mls @ 20 mls/hr IV ONCE ONE Stop: 03/31/17 12:59 Insulin Aspart (Novolog) 0 unit SC Q6 [facility] PRN Reason: Protocol Last Admin: 03/30/17 19:05 Dose: 1 unit Midodrine (Proamatine) 5 mg PO Q8 [facility] Last Admin: 03/30/17 21:24 Dose: 5 mg Pantoprazole Sodium (Protonix Inj) 40 mg IVP Q12H [facility] Last Admin: 03/30/17 21:25 Dose: 40 mg Potassium Phos/Sodium Phos (Neutra-Phos) 1 pkt PO BID [facility] Last Admin: 03/30/17 19:05 Dose: 1 pkt - Labs Labs: 03/30/17 06:18 03/30/17 20:19 PT 25.0 SECONDS (9.7-12.2) H 03/30/17 06:18 INR 2.2 03/30/17 06:18 APTT 67 SECONDS (21-34) H D 03/30/17 06:18 - Head Exam Head Exam: ATRAUMATIC - Eye Exam Eye Exam: Normal appearance - ENT Exam ENT Exam: Mucous Membranes Dry - Respiratory Exam Respiratory Exam: NORMAL BREATHING PATTERN - Cardiovascular Exam Cardiovascular Exam: +S1, +S2 - GI/Abdominal Exam GI & Abdominal Exam: Normal Bowel Sounds Assessment and Plan (1) DIC (disseminated intravascular coagulation) Assessment & Plan: secondary to septic shock s/p cryopercipitate plt count improved Status: Acute (2) Thrombocytopenia Assessment & Plan: secondary to DIC, sepsis Status: Acute (3) Coagulopathy Assessment & Plan: secondary to DIC likely nutritional component Status: Acute (4) Anemia Assessment & Plan: chronic disease Status: Acute
[2017-03-31] MEDS: (Novolog) Insulin Aspart, Recombinant 100 u/ml 10 ml vial SC SCH ×4 (00:29→17:59)
[2017-03-31] MEDS ORDERED: Sodium Chloride 3% 500 ML IV ONE (00:56)
[2017-03-31] MEDS: Albuterol-Ipratrop 3 mg / 0.5 (3 ml) UD INH SCH ×4 (01:47→19:57)
[2017-03-31 05:36] LABS: ABG ALLEN TEST POS; ABG MECHANICAL RATE 16; ARTERIAL BLOOD GAS MODE PRVC; ARTERIAL BLOOD HGB O2 SAT 96.6 % (95.0-98.0); ATERIAL BLOOD GAS PEEP 18; DRAW SITE RR; HHB -0.2 % (0.0-5.0); METHEMOGLOBIN 1.6 % (0.0-3.0)
[2017-03-31 06:46] LABS: BASO % 0.1 % (0.0-2.0); EOS % 0.1 % (0.0-4.0); HEMATOCRIT 22.7 % (34.0-47.0); LYMPH # 0.9 K/uL (1.0-4.3); LYMPH % 2.8 % (20.0-40.0); MEAN CELL VOLUME 105.8 fL (81.0-99.0); MEAN CORPUSCULAR HEMOGLOBIN 34.7 pg (27.0-31.0); MEAN CORPUSCULAR HGB CONC 32.8 g/dL (33.0-37.0); MEAN PLATELET VOLUME 11.4 fL (7.2-11.7); MONO # 0.8 K/uL (0.0-0.8); MONO % 2.5 % (0.0-10.0); RED CELL DISTRIBUTION WIDTH 17.2 % (11.5-14.5); WHITE BLOOD COUNT 32.3 K/uL (4.8-10.8)
[2017-03-31 06:57] LABS: PLATELET COUNT 22 K/uL (130-400)
[2017-03-31 07:09] LABS: ALB/GLOB RATIO 1.3 (1.0-2.1); ALKALINE PHOSPHATASE 69 U/L (38-126); ALT/SGPT 83 U/L (9-52); AST/SGOT 75 U/L (14-36); BILIRUBIN,TOTAL 4.3 mg/dL (0.2-1.3); BLOOD UREA NITROGEN 29 mg/dL (7-17); CALCIUM 7.2 mg/dl (8.6-10.4); CARBON DIOXIDE 26 mmol/L (22-30); CHLORIDE 92 mmol/L (98-107); GFR AFRICAN-AMERICAN > 60; GLUCOSE,RANDOM 115 mg/dL (65-105); POTASSIUM 3.4 mmol/L (3.6-5.2); SODIUM 124 mmol/L (132-148); TOTAL PROTEIN 4.4 g/dL (6.3-8.3)
[2017-03-31 08:27] LABS: NEUTROPHIL 90 % (50-75); TOTAL CELLS COUNTED 100
[2017-03-31] MEDS: Potassium & Sodium Phosphate PO SCH ×2 (09:24→17:03)
[2017-03-31] MEDS ORDERED: Potassium Chloride 20 mEq ER Tab PO ONE (10:45)
[2017-03-31 11:01] LABS: MAGNESIUM 1.7 mg/dL (1.6-2.3); PHOSPHOROUS 2.7 mg/dL (2.5-4.5)
[2017-03-31] MEDS ORDERED: Albumin Human 5% (12.5 gm/250 ml) IV ONE (11:30)
--- NOTE | 2017-03-31 11:59 | PN ---
DATE: LOCATION: ICU 5. SUBJECTIVE: This is a 61-year-old female seen early in rounds without significant clinical changes. The patient had blood transfusion apparently yesterday due to her severe thrombocytopenia. The entire chart is reviewed including but not limited to the most recent lab and radiology study results, current and the previous medication list, current and the previous medical events. Case discussed with the staff. Today's lab showed white blood cells of 32.3 with low hemoglobin of 7.4, low hematocrit 22.7 with again very low platelet count of 22 with abnormal ABGs. Blood glucose level reported to be 127. PHYSICAL EXAMINATION: GENERAL: A 61 years old, intubated with NG tube in place for feeding purposes. VITAL SIGNS: The patient is afebrile with pulse of 110, blood pressure 130/70. HEENT: Showed pale, dry oral mucous membrane. Nonicteric sclerae. LUNGS: Few scattered crepitation. Decreased air entry at bases. HEART: Positive S1 and S2 with increased rate. ABDOMEN: Soft. Bowel sounds are hypoactive. No mass or organomegaly. No rebound, tenderness, or guarding. NEUROLOGIC: No reported new neurological deficits, sensory or motor. IMPRESSION: 1. Anemia. 2. Disseminated intravascular coagulation with thrombocytopenia, severe. 3. Coagulopathy secondary to above. 4. Bilateral pneumonia with abnormal chest x-ray indicative of diffuse interstitial alveolar opacity bilaterally. SUGGESTION: 1. Agree with your plan. 2. IV if okay with Infectious Disease consult. 3. Aggressive GI workup in the meantime. We will follow up closely with you. Wicho Potter MD
--- NOTE | 2017-03-31 16:13 | CP.CCUPN ---
CCU Subjective - Physician Review Events Since Last Encounter (Free Text): 03/31/17 16:06 alert, not following commands. CCU Objective - Vital Signs / Intake & Output Vital Signs (Last 4 hours): Vital Signs Pulse Resp BP Pulse Ox 03/31/17 15:01 120 H 26 H 133/113 H 94 L 03/31/17 15:00 120 H 18 94 L 03/31/17 14:01 100 H 19 111/62 100 03/31/17 14:00 102 H 19 100 03/31/17 13:00 114 H 14 146/107 H 100 Intake and Output (Last 8hrs): Intake & Output 03/31/17 03/31/17 03/31/17 06:59 14:59 22:59 Intake Total 1180.3 410 25 Output Total 150 Balance 1030.3 410 25 Intake: IV 674 Intake, IV Amount 261.3 165 25 RIJ Distal 2 0 RIJ Distal 3 31.3 Right Medial IJ 130 90 Right Proximal IJ 2 100 75 25 Tube Feeding 245 245 Output: Urine 150 Urethral (Duong) 50 Urine, Voided 100 Other: # Bowel Movements 1 1 - Physical Exam Physical Exam Limitations: Positive for: Altered Mental Status Head: Positive for: Atraumatic, Normocephalic Pupils: Positive for: PERRL Extroacular Muscles: Positive for: EOMI Mouth: Positive for: Moist Mucous Membranes, Other (intubated) Neck: Positive for: Normal Range of Motion Respiratory/Chest: Positive for: Rales, Rhonchi. Negative for: Accessory Muscle Use Cardiovascular: Positive for: Regular Rate and Rhythm Abdomen: Positive for: Distention, Other (+ fluid wave (ascites)). Negative for : Tenderness Upper Extremity: Positive for: Other (multiple areas of ecchymosis) Lower Extremity: Positive for: Other (ecchymosis) Skin: Positive for: Warm, Dry Psychiatric: Positive for: Other (sedated. intubated) - Medications Active Medications: Active Medications Generic Name Dose Route Start Last Admin Trade Name Freq PRN Reason Stop Dose Admin Albuterol/Ipratropium 3 ml 03/30/17 14:00 03/31/17 13:56 Duoneb 3 Mg/0.5 Mg (3 Ml) Ud INH 3 ml RQ6 [place] Administration Hydrocortisone Sodium Succinate 100 mg 03/29/17 09:45 03/31/17 14:01 Solu-Cortef IV 100 mg Q8 [place] Administration Norepinephrine Bitartrate 8 mg 258 mls @ 7.74 mls/hr 03/27/17 23:58 03/31/17 04:01 / Dextrose IV 0 mcg/min .Q24H PRN 0 mls/hr TITRATE PER MD ORDER Titration Protocol 4 MCG/MIN Tigecycline 50 mg/ Sodium 100 mls @ 100 mls/hr 03/30/17 07:00 03/31/17 05:59 Chloride IVPB 100 mls/hr Q12H [place] Administration Sodium Chloride 500 mls @ 15 mls/hr 03/31/17 00:56 03/31/17 01:00 Hypertonic Saline 3% IV 04/01/17 06:39 15 mls/hr ONCE ONE Administration Insulin Aspart 0 unit 03/28/17 12:00 03/31/17 12:22 Novolog SC Not Given Q6 [place] Protocol Midodrine 5 mg 03/29/17 14:00 03/31/17 14:01 Proamatine PO 5 mg Q8 [place] Administration Pantoprazole Sodium 40 mg 03/28/17 09:30 03/31/17 09:24 Protonix Inj IVP 40 mg Q12H [place] Administration Potassium Phos/Sodium Phos 1 pkt 03/30/17 11:45 03/31/17 09:24 Neutra-Phos PO 1 pkt BID [place] Administration - Patient Studies Lab Studies: Microbiology Studies 03/30/17 11:10 Blood Culture - Preliminary Blood-Thru Central Line NO GROWTH AFTER 24 HOURS 03/30/17 11:10 Blood Culture - Preliminary Blood-Thru Central Line NO GROWTH AFTER 24 HOURS 03/27/17 11:25 Blood Culture - Preliminary Blood-Venous NO GROWTH AFTER 4 DAYS 03/27/17 11:05 Blood Culture - Preliminary Blood-Venous NO GROWTH AFTER 4 DAYS 03/30/17 05:25 Gram Stain - Final Trachasp Lab Studies 03/31/17 03/31/17 03/31/17 Range/Units 12:18 12:01 06:32 WBC (4.8-10.8) K/uL RBC (3.80-5.20) Mil/uL Hgb (11.0-16.0) g/dL Hct (34.0-47.0) % MCV (81.0-99.0) fL MCH (27.0-31.0) pg MCHC (33.0-37.0) g/dL RDW (11.5-14.5) % Plt Count (130-400) K/uL MPV (7.2-11.7) fL Neut % (Auto) (50.0-75.0) % Lymph % (Auto) (20.0-40.0) % Levy % (Auto) (0.0-10.0) % Eos % (Auto) (0.0-4.0) % Baso % (Auto) (0.0-2.0) % Neut # (1.8-7.0) K/uL Lymph # (1.0-4.3) K/uL Levy # (0.0-0.8) K/uL Eos # (0.0-0.7) K/uL Baso # (0.0-0.2) K/uL Neutrophils % (Manual) (50-75) % Band Neutrophils % (0-2) % Lymphocytes % (Manual) (20-40) % Monocytes % (Manual) (0-10) % Toxic Granulation Platelet Estimate (NORMAL) Hypochromasia (manual) Anisocytosis (manual) Macrocytosis (manual) Puncture Site pCO2 (35-45) mm/Hg pO2 (80-100) mm/Hg HCO3 (21-28) mmol/L ABG pH (7.35-7.45) ABG Total CO2 (22-28) mmol/L ABG O2 Saturation (95-98) % ABG Base Excess (-2.0-3.0) mmol/L ABG Hemoglobin (11.7-17.4) g/dL ABG Carboxyhemoglobin (0.5-1.5) % POC ABG HHb (Measured) (0.0-5.0) % ABG Methemoglobin (0.0-3.0) % Crescencio Test A-a O2 Difference mm/Hg Respiratory Index Hgb O2 Saturation (95.0-98.0) % Vent Mode Mechanical Rate FiO2 % Tidal Volume PEEP Sodium 128 L 124 L (132-148) mmol/L Potassium 3.4 L (3.6-5.2) mmol/L Chloride 92 L (98-107) mmol/L Carbon Dioxide 26 (22-30) mmol/L Anion Gap 10 (10-20) BUN 29 H (7-17) mg/dL Creatinine 0.9 (0.7-1.2) mg/dL Est GFR ( Amer) > 60 Est GFR (Non-Af Amer) > 60 POC Glucose (mg/dL) 124 H (65-110) mg/dL Random Glucose 115 H (65-105) mg/dL Calcium 7.2 L (8.6-10.4) mg/dl Phosphorus 2.7 (2.5-4.5) mg/dL Magnesium 1.7 (1.6-2.3) mg/dL Total Bilirubin 4.3 H (0.2-1.3) mg/dL AST 75 H D (14-36) U/L ALT 83 H (9-52) U/L Alkaline Phosphatase 69 (38-126) U/L Total Protein 4.4 L (6.3-8.3) g/dL Albumin 2.5 L D (3.5-5.0) g/dL Globulin 1.9 L (2.2-3.9) gm/dL Albumin/Globulin Ratio 1.3 (1.0-2.1) 03/31/17 03/31/17 03/31/17 Range/Units 06:30 05:20 05:06 WBC 32.3 H (4.8-10.8) K/uL RBC 2.14 L (3.80-5.20) Mil/uL Hgb 7.4 L (11.0-16.0) g/dL Hct 22.7 L (34.0-47.0) % MCV 105.8 H (81.0-99.0) fL MCH 34.7 H (27.0-31.0) pg MCHC 32.8 L (33.0-37.0) g/dL RDW 17.2 H (11.5-14.5) % Plt Count 22 L* D (130-400) K/uL MPV 11.4 (7.2-11.7) fL Neut % (Auto) 94.5 H (50.0-75.0) % Lymph % (Auto) 2.8 L (20.0-40.0) % Levy % (Auto) 2.5 (0.0-10.0) % Eos % (Auto) 0.1 (0.0-4.0) % Baso % (Auto) 0.1 (0.0-2.0) % Neut # 30.6 H (1.8-7.0) K/uL Lymph # 0.9 L (1.0-4.3) K/uL Levy # 0.8 (0.0-0.8) K/uL Eos # 0.0 (0.0-0.7) K/uL Baso # 0.0 (0.0-0.2) K/uL Neutrophils % (Manual) 90 H (50-75) % Band Neutrophils % 4 H (0-2) % Lymphocytes % (Manual) 1 L (20-40) % Monocytes % (Manual) 5 (0-10) % Toxic Granulation Present Platelet Estimate Markedly decreased L (NORMAL) Hypochromasia (manual) Slight Anisocytosis (manual) Slight Macrocytosis (manual) Moderate Puncture Site Rr pCO2 47 H (35-45) mm/Hg pO2 182 H (80-100) mm/Hg HCO3 25.6 (21-28) mmol/L ABG pH 7.36 (7.35-7.45) ABG Total CO2 28.0 (22-28) mmol/L ABG O2 Saturation 100.2 H (95-98) % ABG Base Excess 0.8 (-2.0-3.0) mmol/L ABG Hemoglobin 9.9 L (11.7-17.4) g/dL ABG Carboxyhemoglobin 2.0 H (0.5-1.5) % POC ABG HHb (Measured) -0.2 L (0.0-5.0) % ABG Methemoglobin 1.6 (0.0-3.0) % Crescencio Test Pos A-a O2 Difference 187.0 mm/Hg Respiratory Index 1.0 Hgb O2 Saturation 96.6 (95.0-98.0) % Vent Mode Prvc Mechanical Rate 16 FiO2 60.0 % Tidal Volume 350 PEEP 18 Sodium (132-148) mmol/L Potassium (3.6-5.2) mmol/L Chloride (98-107) mmol/L Carbon Dioxide (22-30) mmol/L Anion Gap (10-20) BUN (7-17) mg/dL Creatinine (0.7-1.2) mg/dL Est GFR ( Amer) Est GFR (Non-Af Amer) POC Glucose (mg/dL) 127 H (65-110) mg/dL Random Glucose (65-105) mg/dL Calcium (8.6-10.4) mg/dl Phosphorus (2.5-4.5) mg/dL Magnesium (1.6-2.3) mg/dL Total Bilirubin (0.2-1.3) mg/dL AST (14-36) U/L ALT (9-52) U/L Alkaline Phosphatase (38-126) U/L Total Protein (6.3-8.3) g/dL Albumin (3.5-5.0) g/dL Globulin (2.2-3.9) gm/dL Albumin/Globulin Ratio (1.0-2.1) 03/31/17 03/30/17 03/30/17 Range/Units 00:16 23:56 20:19 WBC (4.8-10.8) K/uL RBC (3.80-5.20) Mil/uL Hgb (11.0-16.0) g/dL Hct (34.0-47.0) % MCV (81.0-99.0) fL MCH (27.0-31.0) pg MCHC (33.0-37.0) g/dL RDW (11.5-14.5) % Plt Count (130-400) K/uL MPV (7.2-11.7) fL Neut % (Auto) (50.0-75.0) % Lymph % (Auto) (20.0-40.0) % Levy % (Auto) (0.0-10.0) % Eos % (Auto) (0.0-4.0) % Baso % (Auto) (0.0-2.0) % Neut # (1.8-7.0) K/uL Lymph # (1.0-4.3) K/uL Levy # (0.0-0.8) K/uL Eos # (0.0-0.7) K/uL Baso # (0.0-0.2) K/uL Neutrophils % (Manual) (50-75) % Band Neutrophils % (0-2) % Lymphocytes % (Manual) (20-40) % Monocytes % (Manual) (0-10) % Toxic Granulation Platelet Estimate (NORMAL) Hypochromasia (manual) Anisocytosis (manual) Macrocytosis (manual) Puncture Site pCO2 (35-45) mm/Hg pO2 (80-100) mm/Hg HCO3 (21-28) mmol/L ABG pH (7.35-7.45) ABG Total CO2 (22-28) mmol/L ABG O2 Saturation (95-98) % ABG Base Excess (-2.0-3.0) mmol/L ABG Hemoglobin (11.7-17.4) g/dL ABG Carboxyhemoglobin (0.5-1.5) % POC ABG HHb (Measured) (0.0-5.0) % ABG Methemoglobin (0.0-3.0) % Crescencio Test A-a O2 Difference mm/Hg Respiratory Index Hgb O2 Saturation (95.0-98.0) % Vent Mode Mechanical Rate FiO2 % Tidal Volume PEEP Sodium 123 L 119 L* (132-148) mmol/L Potassium (3.6-5.2) mmol/L Chloride (98-107) mmol/L Carbon Dioxide (22-30) mmol/L Anion Gap (10-20) BUN (7-17) mg/dL Creatinine (0.7-1.2) mg/dL Est GFR ( Amer) Est GFR (Non-Af Amer) POC Glucose (mg/dL) 158 H (65-110) mg/dL Random Glucose (65-105) mg/dL Calcium (8.6-10.4) mg/dl Phosphorus (2.5-4.5) mg/dL Magnesium (1.6-2.3) mg/dL Total Bilirubin (0.2-1.3) mg/dL AST (14-36) U/L ALT (9-52) U/L Alkaline Phosphatase (38-126) U/L Total Protein (6.3-8.3) g/dL Albumin (3.5-5.0) g/dL Globulin (2.2-3.9) gm/dL Albumin/Globulin Ratio (1.0-2.1) 12/01/17 12/01/17 12/01/17 Range/Units 17:27 17:15 16:54 WBC (4.8-10.8) K/uL RBC (3.80-5.20) Mil/uL Hgb (11.0-16.0) g/dL Hct (34.0-47.0) % MCV (81.0-99.0) fL MCH (27.0-31.0) pg MCHC (33.0-37.0) g/dL RDW (11.5-14.5) % Plt Count (130-400) K/uL MPV (7.2-11.7) fL Neut % (Auto) (50.0-75.0) % Lymph % (Auto) (20.0-40.0) % Levy % (Auto) (0.0-10.0) % Eos % (Auto) (0.0-4.0) % Baso % (Auto) (0.0-2.0) % Neut # (1.8-7.0) K/uL Lymph # (1.0-4.3) K/uL Levy # (0.0-0.8) K/uL Eos # (0.0-0.7) K/uL Baso # (0.0-0.2) K/uL Neutrophils % (Manual) (50-75) % Band Neutrophils % (0-2) % Lymphocytes % (Manual) (20-40) % Monocytes % (Manual) (0-10) % Toxic Granulation Platelet Estimate (NORMAL) Hypochromasia (manual) Anisocytosis (manual) Macrocytosis (manual) Puncture Site Rba pCO2 40 (35-45) mm/Hg pO2 432 H (80-100) mm/Hg HCO3 25.0 (21-28) mmol/L ABG pH 7.40 (7.35-7.45) ABG Total CO2 26.0 (22-28) mmol/L ABG O2 Saturation 100.3 H (95-98) % ABG Base Excess 0 (-2.0-3.0) mmol/L ABG Hemoglobin 7.8 L (11.7-17.4) g/dL ABG Carboxyhemoglobin 1.7 H (0.5-1.5) % POC ABG HHb (Measured) -0.3 L (0.0-5.0) % ABG Methemoglobin 1.7 (0.0-3.0) % Crescencio Test Pos A-a O2 Difference 231.0 mm/Hg Respiratory Index 0.5 Hgb O2 Saturation 96.8 (95.0-98.0) % Vent Mode Prvc Mechanical Rate 16 FiO2 100.0 % Tidal Volume 350 PEEP 18 Sodium 121 L (132-148) mmol/L Potassium (3.6-5.2) mmol/L Chloride (98-107) mmol/L Carbon Dioxide (22-30) mmol/L Anion Gap (10-20) BUN (7-17) mg/dL Creatinine (0.7-1.2) mg/dL Est GFR ( Amer) Est GFR (Non-Af Amer) POC Glucose (mg/dL) 168 H (65-110) mg/dL Random Glucose (65-105) mg/dL Calcium (8.6-10.4) mg/dl Phosphorus (2.5-4.5) mg/dL Magnesium (1.6-2.3) mg/dL Total Bilirubin (0.2-1.3) mg/dL AST (14-36) U/L ALT (9-52) U/L Alkaline Phosphatase (38-126) U/L Total Protein (6.3-8.3) g/dL Albumin (3.5-5.0) g/dL Globulin (2.2-3.9) gm/dL Albumin/Globulin Ratio (1.0-2.1) Laboratory Results - last 24 hr 03/30/17 03/30/17 03/30/17 16:54 17:15 17:27 WBC RBC Hgb Hct MCV MCH MCHC RDW Plt Count MPV Neut % (Auto) Lymph % (Auto) Levy % (Auto) Eos % (Auto) Baso % (Auto) Neut # Lymph # Levy # Eos # Baso # Neutrophils % (Manual) Band Neutrophils % Lymphocytes % (Manual) Monocytes % (Manual) Toxic Granulation Platelet Estimate Hypochromasia (manual) Anisocytosis (manual) Macrocytosis (manual) Puncture Site Rba pCO2 40 pO2 432 H HCO3 25.0 ABG pH 7.40 ABG Total CO2 26.0 ABG O2 Saturation 100.3 H ABG Base Excess 0 ABG Hemoglobin 7.8 L ABG Carboxyhemoglobin 1.7 H POC ABG HHb (Measured) -0.3 L ABG Methemoglobin 1.7 Crescencio Test Pos A-a O2 Difference 231.0 Respiratory Index 0.5 Hgb O2 Saturation 96.8 Vent Mode Prvc Mechanical Rate 16 FiO2 100.0 Tidal Volume 350 PEEP 18 Sodium 121 L Potassium Chloride Carbon Dioxide Anion Gap BUN Creatinine Est GFR ( Amer) Est GFR (Non-Af Amer) POC Glucose (mg/dL) 168 H Random Glucose Calcium Phosphorus Magnesium Total Bilirubin AST ALT Alkaline Phosphatase Total Protein Albumin Globulin Albumin/Globulin Ratio 03/30/17 03/30/17 03/31/17 20:19 23:56 00:16 WBC RBC Hgb Hct MCV MCH MCHC RDW Plt Count MPV Neut % (Auto) Lymph % (Auto) Levy % (Auto) Eos % (Auto) Baso % (Auto) Neut # Lymph # Levy # Eos # Baso # Neutrophils % (Manual) Band Neutrophils % Lymphocytes % (Manual) Monocytes % (Manual) Toxic Granulation Platelet Estimate Hypochromasia (manual) Anisocytosis (manual) Macrocytosis (manual) Puncture Site pCO2 pO2 HCO3 ABG pH ABG Total CO2 ABG O2 Saturation ABG Base Excess ABG Hemoglobin ABG Carboxyhemoglobin POC ABG HHb (Measured) ABG Methemoglobin Crescencio Test A-a O2 Difference Respiratory Index Hgb O2 Saturation Vent Mode Mechanical Rate FiO2 Tidal Volume PEEP Sodium 119 L* 123 L Potassium Chloride Carbon Dioxide Anion Gap BUN Creatinine Est GFR ( Amer) Est GFR (Non-Af Amer) POC Glucose (mg/dL) 158 H Random Glucose Calcium Phosphorus Magnesium Total Bilirubin AST ALT Alkaline Phosphatase Total Protein Albumin Globulin Albumin/Globulin Ratio 03/31/17 03/31/17 03/31/17 05:06 05:20 06:30 WBC 32.3 H RBC 2.14 L Hgb 7.4 L Hct 22.7 L MCV 105.8 H MCH 34.7 H MCHC 32.8 L RDW 17.2 H Plt Count 22 L* D MPV 11.4 Neut % (Auto) 94.5 H Lymph % (Auto) 2.8 L Levy % (Auto) 2.5 Eos % (Auto) 0.1 Baso % (Auto) 0.1 Neut # 30.6 H Lymph # 0.9 L Levy # 0.8 Eos # 0.0 Baso # 0.0 Neutrophils % (Manual) 90 H Band Neutrophils % 4 H Lymphocytes % (Manual) 1 L Monocytes % (Manual) 5 Toxic Granulation Present Platelet Estimate Markedly decreased L Hypochromasia (manual) Slight Anisocytosis (manual) Slight Macrocytosis (manual) Moderate Puncture Site Rr pCO2 47 H pO2 182 H HCO3 25.6 ABG pH 7.36 ABG Total CO2 28.0 ABG O2 Saturation 100.2 H ABG Base Excess 0.8 ABG Hemoglobin 9.9 L ABG Carboxyhemoglobin 2.0 H POC ABG HHb (Measured) -0.2 L ABG Methemoglobin 1.6 Crescencio Test Pos A-a O2 Difference 187.0 Respiratory Index 1.0 Hgb O2 Saturation 96.6 Vent Mode Prvc Mechanical Rate 16 FiO2 60.0 Tidal Volume 350 PEEP 18 Sodium Potassium Chloride Carbon Dioxide Anion Gap BUN Creatinine Est GFR ( Amer) Est GFR (Non-Af Amer) POC Glucose (mg/dL) 127 H Random Glucose Calcium Phosphorus Magnesium Total Bilirubin AST ALT Alkaline Phosphatase Total Protein Albumin Globulin Albumin/Globulin Ratio 03/31/17 03/31/17 03/31/17 06:32 12:01 12:18 WBC RBC Hgb Hct MCV MCH MCHC RDW Plt Count MPV Neut % (Auto) Lymph % (Auto) Levy % (Auto) Eos % (Auto) Baso % (Auto) Neut # Lymph # Levy # Eos # Baso # Neutrophils % (Manual) Band Neutrophils % Lymphocytes % (Manual) Monocytes % (Manual) Toxic Granulation Platelet Estimate Hypochromasia (manual) Anisocytosis (manual) Macrocytosis (manual) Puncture Site pCO2 pO2 HCO3 ABG pH ABG Total CO2 ABG O2 Saturation ABG Base Excess ABG Hemoglobin ABG Carboxyhemoglobin POC ABG HHb (Measured) ABG Methemoglobin Crescencio Test A-a O2 Difference Respiratory Index Hgb O2 Saturation Vent Mode Mechanical Rate FiO2 Tidal Volume PEEP Sodium 124 L 128 L Potassium 3.4 L Chloride 92 L Carbon Dioxide 26 Anion Gap 10 BUN 29 H Creatinine 0.9 Est GFR ( Amer) > 60 Est GFR (Non-Af Amer) > 60 POC Glucose (mg/dL) 124 H Random Glucose 115 H Calcium 7.2 L Phosphorus 2.7 Magnesium 1.7 Total Bilirubin 4.3 H AST 75 H D ALT 83 H Alkaline Phosphatase 69 Total Protein 4.4 L Albumin 2.5 L D Globulin 1.9 L Albumin/Globulin Ratio 1.3 Fingerstick Blood Sugar Results: 124 Review of Systems - Review of Systems Systems not reviewed;Unavailable: Altered Mental Status Critical Care Progress Note - Nutrition Nutrition: Nutrition Category Date Time Status Heart Healthy Diet [DIET] Diets 03/17/17 Dinner Active Assessment/Plan (1) Severe sepsis Assessment and plan: 61yo F. PMMHx ETOH abuse. p/w septic shock, ARDS. Neuro: minimal response, no sedation. Pulm: acute respiratory failure, now in severe ARDS on vent. lung protective strategies. CV: septic shock resolving, now off all pressors. Hem: severe thrombocytopenia, transfusing platelets. Renal: hyponatremia improved, stopping hypertonics, starting diuretics lasix q12h with concomitant albumin drip. Endo: SISS q6h GI: [email or web address] ID: septic shock, UTI and RLL PNA. Started on Tigecycline (03/29). DVT proph - SCD's, if platelet count stabilizes will start a/c GI proph - protonix duong for strict I/O's during acute illness Code status - full code Critical Care Time spent 45 minutes Multi-disciplinary rounds were performed with house staff, nursing, speech therapy, respiratory therapy, pharmacy and nutrition with integrated input from the primary team/attending and other consulting services. The documented time is cumulative and includes review of patient data/exams/labs/chart review and examination of the patient on rounds and throughout the day; time is exclusive of any procedures or teaching time. Current Visit: Yes Status: Acute
--- NOTE | 2017-03-31 16:58 | CP.PCM.PN ---
Subjective - Date & Time of Evaluation Date of Evaluation: 03/31/17 Time of Evaluation: 16:58 - Subjective Subjective: renal follow up note please call us at [phone] if any qs. intubated, off the hypertonic saline since aorund noon EXAM: General Appearance: ill appearing, intubated Head; Atraumatic, normocephalic ENT: no ulcers no thrush. Neck; supple Lungs:vent dependent Breath sounds bilateral with crackles Heart: Normal rate. s1s2 normal. Extremities: 2-3+ edema. Neurological: sedated Skin: Warm and dry. Abdomen: Abdomen is soft. 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 ] Objective - Vital Signs/Intake and Output Vital Signs (last 24 hours): Temp Pulse Resp BP Pulse Ox 98.9 F 120 H 26 H 147/82 94 L 03/30/17 08:00 03/31/17 15:01 03/31/17 15:01 03/31/17 16:53 03/31/17 15:01 Intake and Output: 03/31/17 03/31/17 06:59 18:59 Intake Total 1617.8 435 Output Total 240 Balance 1377.8 435 - Medications Medications: Current Medications Albuterol/Ipratropium (Duoneb 3 Mg/0.5 Mg (3 Ml) Ud) 3 ml INH RQ6 [facility] Last Admin: 03/31/17 13:56 Dose: 3 ml Furosemide (Lasix) 40 mg IVP Q12 [facility] Last Admin: 03/31/17 16:53 Dose: 40 mg Hydrocortisone Sodium Succinate (Solu-Cortef) 100 mg IV Q8 [facility] Last Admin: 03/31/17 14:01 Dose: 100 mg Norepinephrine Bitartrate 8 mg (/ Dextrose) 258 mls @ 7.74 mls/hr IV .Q24H PRN ; Protocol; 4 MCG/MIN PRN Reason: TITRATE PER MD ORDER Last Titration: 03/31/17 04:01 Dose: 0 mcg/min, 0 mls/hr Tigecycline 50 mg/ Sodium (Chloride) 100 mls @ 100 mls/hr IVPB Q12H [facility] Last Admin: 03/31/17 05:59 Dose: 100 mls/hr Sodium Chloride (Hypertonic Saline 3%) 500 mls @ 15 mls/hr IV ONCE ONE Stop: 04/01/17 06:39 Last Admin: 03/31/17 01:00 Dose: 15 mls/hr Insulin Aspart (Novolog) 0 unit SC Q6 [facility] PRN Reason: Protocol Last Admin: 03/31/17 12:22 Dose: Not Given Midodrine (Proamatine) 5 mg PO Q8 [facility] Last Admin: 03/31/17 14:01 Dose: 5 mg Pantoprazole Sodium (Protonix Inj) 40 mg IVP Q12H [facility] Last Admin: 03/31/17 09:24 Dose: 40 mg Potassium Phos/Sodium Phos (Neutra-Phos) 1 pkt PO BID [facility] Last Admin: 03/31/17 09:24 Dose: 1 pkt - Labs Labs: 03/31/17 06:30 03/31/17 12:18 PT 25.0 SECONDS (9.7-12.2) H 03/30/17 06:18 INR 2.2 03/30/17 06:18 APTT 67 SECONDS (21-34) H D 03/30/17 06:18
--- NOTE | 2017-03-31 18:11 | CP.PCM.PN ---
Subjective - Date & Time of Evaluation Date of Evaluation: 03/31/17 Time of Evaluation: 18:00 - Subjective Subjective: Vented Objective - Vital Signs/Intake and Output Vital Signs (last 24 hours): Temp Pulse Resp BP Pulse Ox 98.9 F 117 H 30 H 150/83 98 03/30/17 08:00 03/31/17 17:00 03/31/17 17:00 03/31/17 17:00 03/31/17 17:00 Intake and Output: 03/31/17 03/31/17 06:59 18:59 Intake Total 1617.8 485 Output Total 240 450 Balance 1377.8 35 - Medications Medications: Current Medications Albuterol/Ipratropium (Duoneb 3 Mg/0.5 Mg (3 Ml) Ud) 3 ml INH RQ6 [facility] Last Admin: 03/31/17 13:56 Dose: 3 ml Furosemide (Lasix) 40 mg IVP Q12 [facility] Last Admin: 03/31/17 16:53 Dose: 40 mg Hydrocortisone Sodium Succinate (Solu-Cortef) 100 mg IV Q8 [facility] Last Admin: 03/31/17 14:01 Dose: 100 mg Norepinephrine Bitartrate 8 mg (/ Dextrose) 258 mls @ 7.74 mls/hr IV .Q24H PRN ; Protocol; 4 MCG/MIN PRN Reason: TITRATE PER MD ORDER Last Titration: 03/31/17 04:01 Dose: 0 mcg/min, 0 mls/hr Tigecycline 50 mg/ Sodium (Chloride) 100 mls @ 100 mls/hr IVPB Q12H [facility] Last Admin: 03/31/17 05:59 Dose: 100 mls/hr Sodium Chloride (Hypertonic Saline 3%) 500 mls @ 15 mls/hr IV ONCE ONE Stop: 04/01/17 06:39 Last Admin: 03/31/17 01:00 Dose: 15 mls/hr Insulin Aspart (Novolog) 0 unit SC Q6 [facility] PRN Reason: Protocol Last Admin: 03/31/17 17:59 Dose: Not Given Midodrine (Proamatine) 5 mg PO Q8 [facility] Last Admin: 03/31/17 14:01 Dose: 5 mg Pantoprazole Sodium (Protonix Inj) 40 mg IVP Q12H [facility] Last Admin: 03/31/17 09:24 Dose: 40 mg Potassium Phos/Sodium Phos (Neutra-Phos) 1 pkt PO BID [facility] Last Admin: 03/31/17 17:03 Dose: 1 pkt - Labs Labs: 03/31/17 06:30 03/31/17 12:18 PT 25.0 SECONDS (9.7-12.2) H 03/30/17 06:18 INR 2.2 03/30/17 06:18 APTT 67 SECONDS (21-34) H D 03/30/17 06:18 - Head Exam Head Exam: ATRAUMATIC - Eye Exam Eye Exam: Normal appearance - ENT Exam ENT Exam: Mucous Membranes Dry - Respiratory Exam Respiratory Exam: NORMAL BREATHING PATTERN - Cardiovascular Exam Cardiovascular Exam: +S1, +S2 - GI/Abdominal Exam GI & Abdominal Exam: Normal Bowel Sounds Assessment and Plan (1) DIC (disseminated intravascular coagulation) Assessment & Plan: secondary to septic shock cryopercipitate if fibrinogen < 100 transfusion support of plt to maintain plt above 10,000 Status: Acute (2) Thrombocytopenia Assessment & Plan: secondary to DIC Status: Acute (3) Coagulopathy Assessment & Plan: secondary to DIC nutritional component Status: Acute (4) Anemia Assessment & Plan: chronic disease microangiopathic hemolysis from DIC transfusion support PRN Status: Acute
--- NOTE | 2017-03-31 18:44 | RAD ---
HISTORY: on vent COMPARISON: Portable chest 03/30/2017. FINDINGS: Endotracheal tube, right central venous line and nasogastric tube are again identified not significantly changed in position. LUNGS: Diffuse reticular markings are again identified appears somewhat diminished in the left base with increasing aeration at the right base reflecting diminished airspace disease there. Significant residual remains there. Right pleural effusion is not completely excluded though mild. Left pleural effusion is not appreciated. There is no pneumothorax bilaterally. CARDIOVASCULAR: Normal. OSSEOUS STRUCTURES: No significant abnormalities. VISUALIZED UPPER ABDOMEN: Normal. OTHER FINDINGS: None. IMPRESSION: Diminishing diffuse interstitial pulmonary disease/ ARDS. Limited alveolitis right base not completely excluded.
[2017-04-01] MEDS: (Novolog) Insulin Aspart, Recombinant 100 u/ml 10 ml vial SC SCH ×4 (00:22→18:16)
[2017-04-01] MEDS: Albuterol-Ipratrop 3 mg / 0.5 (3 ml) UD INH SCH ×4 (01:44→20:18)
[2017-04-01 04:36] LABS: ABG MECHANICAL RATE 16; ARTERIAL BLOOD GAS MODE PRVC; ARTERIAL BLOOD HGB O2 SAT 96.9 % (95.0-98.0); ATERIAL BLOOD GAS PEEP 18; CARBOXYHEMOGLOBIN 2.6 % (0.5-1.5); DRAW SITE RB; HHB -0.3 % (0.0-5.0); METHEMOGLOBIN 0.8 % (0.0-3.0)
[2017-04-01 06:25] LABS: BASO % 0.1 % (0.0-2.0); EOS # 0.1 K/uL (0.0-0.7); EOS % 0.3 % (0.0-4.0); HEMATOCRIT 24.1 % (34.0-47.0); LYMPH # 0.5 K/uL (1.0-4.3); LYMPH % 1.9 % (20.0-40.0); MEAN CELL VOLUME 106.4 fL (81.0-99.0); MEAN CORPUSCULAR HGB CONC 32.9 g/dL (33.0-37.0); MONO # 0.8 K/uL (0.0-0.8); MONO % 2.7 % (0.0-10.0); RED CELL DISTRIBUTION WIDTH 17.1 % (11.5-14.5); WHITE BLOOD COUNT 28.6 K/uL (4.8-10.8)
[2017-04-01 06:34] LABS: PLATELET COUNT 30 K/uL (130-400)
[2017-04-01 06:42] LABS: ALB/GLOB RATIO 0.9 (1.0-2.1); ALKALINE PHOSPHATASE 81 U/L (38-126); ALT/SGPT 84 U/L (9-52); AST/SGOT 51 U/L (14-36); BILIRUBIN,TOTAL 4.5 mg/dL (0.2-1.3); BLOOD UREA NITROGEN 33 mg/dL (7-17); CALCIUM 7.4 mg/dl (8.6-10.4); CARBON DIOXIDE 26 mmol/L (22-30); CHLORIDE 95 mmol/L (98-107); GFR AFRICAN-AMERICAN > 60; GLUCOSE,RANDOM 121 mg/dL (65-105); POTASSIUM 3.2 mmol/L (3.6-5.2); SODIUM 132 mmol/L (132-148)
[2017-04-01 08:25] LABS: NEUTROPHIL 95 % (50-75); TOTAL CELLS COUNTED 100
[2017-04-01] MEDS ORDERED: Furosemide 100 MG in Sodium Chloride 0.9% 90 ML IVP SCH (10:00)
[2017-04-01] MEDS ORDERED: Potassium Chloride 20 mEq ER Tab PO ONE (10:15)
--- NOTE | 2017-04-01 11:07 | RAD ---
HISTORY: Follow up intubated pte COMPARISON: Portable chest 03/31/2017. FINDINGS: Endotracheal tube and right central venous line are unchanged in position. Nasogastric tube appears retracted such that the side hole terminates at the esophagogastric junction. Advancement of the catheter another 10 cm into the stomach is advised. LUNGS: Diminished left apical patchy densities appreciated with persistent right basilar airspace disease seen laterally. PLEURA: For pleural effusions not excluded. None is seen the left. CARDIOVASCULAR: Normal. OSSEOUS STRUCTURES: No significant abnormalities. VISUALIZED UPPER ABDOMEN: Normal. OTHER FINDINGS: None. IMPRESSION: Diminished left apical airspace disease with persistent airspace disease in the right base laterally. Small right pleural effusion not excluded. Advancement of the nasogastric tube antegrade into the stomach is advised another 10 cm to mobilize the side hole from the esophagogastric junction. Follow-up chest radiograph advised subsequently.
[2017-04-01] MEDS: Furosemide 100 MG in Sodium Chloride 0.9% 90 ML IV SCH ×3 (11:12→20:46)
[2017-04-01] MEDS: Enoxaparin 40 mg Syringe SC SCH (11:13)
[2017-04-01] MEDS: Potassium & Sodium Phosphate PO SCH ×2 (11:13→18:19)
--- NOTE | 2017-04-01 13:27 | CP.PCM.PN ---
Subjective - Date & Time of Evaluation Date of Evaluation: 04/01/17 Time of Evaluation: 08:00 - Subjective Subjective: no fever intubated in ICU IV rx in progress Dr Neri on board for heme - WBC slowly coming down no new + cultures Objective - Vital Signs/Intake and Output Vital Signs (last 24 hours): Temp Pulse Resp BP Pulse Ox 98.1 F 105 H 24 119/79 98 04/01/17 08:00 04/01/17 12:00 04/01/17 12:00 04/01/17 11:45 04/01/17 12:00 Intake and Output: 04/01/17 04/01/17 06:59 18:59 Intake Total 949 225 Output Total 715 235 Balance 234 -10 - Medications Medications: Current Medications Albuterol/Ipratropium (Duoneb 3 Mg/0.5 Mg (3 Ml) Ud) 3 ml INH RQ6 [facility] Last Admin: 04/01/17 07:53 Dose: 3 ml Enoxaparin Sodium (Lovenox) 20 mg SC DAILY [facility] Last Admin: 04/01/17 11:13 Dose: 20 mg Tigecycline 50 mg/ Sodium (Chloride) 100 mls @ 100 mls/hr IVPB Q12H [facility] Last Admin: 04/01/17 06:29 Dose: 100 mls/hr Furosemide 100 mg/ Sodium (Chloride) 100 mls @ 10 mls/hr IV .Q10H [facility]; 10 MG/HR PRN Reason: Protocol Last Admin: 04/01/17 11:12 Dose: 10 mls/hr Insulin Aspart (Novolog) 0 unit SC Q6 [facility] PRN Reason: Protocol Last Admin: 04/01/17 11:52 Dose: Not Given Midodrine (Proamatine) 5 mg PO Q8 [facility] Last Admin: 04/01/17 06:30 Dose: Not Given Pantoprazole Sodium (Protonix Inj) 40 mg IVP Q12H [facility] Last Admin: 04/01/17 11:01 Dose: 40 mg Potassium Phos/Sodium Phos (Neutra-Phos) 1 pkt PO BID [facility] Last Admin: 04/01/17 11:13 Dose: 1 pkt - Labs Labs: 04/01/17 06:16 04/01/17 06:17 PT 25.0 SECONDS (9.7-12.2) H 03/30/17 06:18 INR 2.2 03/30/17 06:18 APTT 67 SECONDS (21-34) H D 03/30/17 06:18 - Constitutional Appears: Cachectic, Chronically Ill - Head Exam Head Exam: NORMOCEPHALIC - Eye Exam Eye Exam: PERRL. absent: Scleral icterus - ENT Exam ENT Exam: Mucous Membranes Dry - Neck Exam Neck Exam: absent: Lymphadenopathy - Respiratory Exam Respiratory Exam: Decreased Breath Sounds, Rhonchi - Cardiovascular Exam Cardiovascular Exam: REGULAR RHYTHM, +S1, +S2 - GI/Abdominal Exam GI & Abdominal Exam: Distended, Soft - Rectal Exam Rectal Exam: Deferred - Exam Exam: NORMAL INSPECTION - Extremities Exam Extremities Exam: absent: Pedal Edema - Back Exam Back Exam: absent: CVA tenderness (L), CVA tenderness (R) - Neurological Exam Neurological Exam: Altered Assessment and Plan (1) Difficulty urinating Status: Acute (2) Difficulty walking Status: Acute (3) UTI (urinary tract infection) Status: Acute
[2017-04-01] MEDS ORDERED: Albumin Human 5% (12.5 gm/250 ml) IV ONE (15:49)
--- NOTE | 2017-04-01 16:05 | CP.CCUPN ---
CCU Subjective - Physician Review Events Since Last Encounter (Free Text): 04/01/17 16:03 alert not following commands CCU Objective - Vital Signs / Intake & Output Intake and Output (Last 8hrs): Intake & Output 04/01/17 04/01/17 04/01/17 06:59 14:59 22:59 Intake Total 460 225 Output Total 520 235 Balance -60 -10 Weight 154 lb Intake: Intake, IV Amount 100 Right Proximal Port 100 Internal Jugular Tube Feeding 360 225 Output: Urine 520 235 Urethral (Duong) 520 235 Other: # Bowel Movements 1 1 - Physical Exam Physical Exam Limitations: Positive for: Altered Mental Status Head: Positive for: Atraumatic, Normocephalic Pupils: Positive for: PERRL Extroacular Muscles: Positive for: EOMI Mouth: Positive for: Moist Mucous Membranes, Other (intubated) Neck: Positive for: Normal Range of Motion Respiratory/Chest: Positive for: Rales, Rhonchi. Negative for: Accessory Muscle Use Cardiovascular: Positive for: Regular Rate and Rhythm Abdomen: Positive for: Normal Bowel Sounds, Other (+ fluid wave (ascites)). Negative for: Tenderness Upper Extremity: Positive for: Other (multiple areas of ecchymosis) Lower Extremity: Positive for: Edema, Other (ecchymosis) Neurological: Positive for: Other (intubated) Skin: Positive for: Warm, Dry Psychiatric: Positive for: Other (sedated. intubated) - Medications Active Medications: Active Medications Generic Name Dose Route Start Last Admin Trade Name Freq PRN Reason Stop Dose Admin Albuterol/Ipratropium 3 ml 03/30/17 14:00 04/01/17 13:36 Duoneb 3 Mg/0.5 Mg (3 Ml) Ud INH 3 ml RQ6 [facility] Administration Enoxaparin Sodium 20 mg 04/01/17 10:30 04/01/17 11:13 Lovenox SC 20 mg DAILY [facility] Administration Tigecycline 50 mg/ Sodium 100 mls @ 100 mls/hr 03/30/17 07:00 04/01/17 06:29 Chloride IVPB 100 mls/hr Q12H [facility] Administration Furosemide 100 mg/ Sodium 100 mls @ 10 mls/hr 04/01/17 10:45 04/01/17 11:12 Chloride IV 10 mls/hr .Q10H [facility] Administration Protocol 10 MG/HR Insulin Aspart 0 unit 03/28/17 12:00 04/01/17 11:52 Novolog SC Not Given Q6 [facility] Protocol Midodrine 5 mg 03/29/17 14:00 04/01/17 14:19 Proamatine PO 5 mg Q8 [facility] Administration Pantoprazole Sodium 40 mg 03/28/17 09:30 04/01/17 11:01 Protonix Inj IVP 40 mg Q12H [facility] Administration Potassium Phos/Sodium Phos 1 pkt 03/30/17 11:45 04/01/17 11:13 Neutra-Phos PO 1 pkt BID [facility] Administration - Patient Studies Lab Studies: Microbiology Studies 03/30/17 11:10 Blood Culture - Preliminary Blood-Thru Central Line NO GROWTH AFTER 48 HOURS 03/30/17 11:10 Blood Culture - Preliminary Blood-Thru Central Line NO GROWTH AFTER 48 HOURS 03/27/17 11:25 Blood Culture - Final Blood-Venous NO GROWTH AFTER 5 DAYS Gram Stain - Final TEST NOT PERFORMED 03/27/17 11:05 Blood Culture - Final Blood-Venous NO GROWTH AFTER 5 DAYS Gram Stain - Final TEST NOT PERFORMED 03/30/17 05:25 Gram Stain - Final Trachasp Sputum Culture - Final NORMAL ORAL [facility] Lab Studies 04/01/17 04/01/17 04/01/17 Range/Units 11:48 06:17 06:16 WBC 28.6 H (4.8-10.8) K/uL RBC 2.27 L (3.80-5.20) Mil/uL Hgb 7.9 L (11.0-16.0) g/dL Hct 24.1 L (34.0-47.0) % MCV 106.4 H (81.0-99.0) fL MCH 35.0 H (27.0-31.0) pg MCHC 32.9 L (33.0-37.0) g/dL RDW 17.1 H (11.5-14.5) % Plt Count 30 L* (130-400) K/uL MPV 9.0 (7.2-11.7) fL Neut % (Auto) 95.0 H (50.0-75.0) % Lymph % (Auto) 1.9 L (20.0-40.0) % Sargent % (Auto) 2.7 (0.0-10.0) % Eos % (Auto) 0.3 (0.0-4.0) % Baso % (Auto) 0.1 (0.0-2.0) % Neut # 27.2 H (1.8-7.0) K/uL Lymph # 0.5 L (1.0-4.3) K/uL Sargent # 0.8 (0.0-0.8) K/uL Eos # 0.1 (0.0-0.7) K/uL Baso # 0.0 (0.0-0.2) K/uL Neutrophils % (Manual) 95 H (50-75) % Band Neutrophils % 4 H (0-2) % Lymphocytes % (Manual) 1 L (20-40) % Monocytes % (Manual) TEST NOT PERFORMED Platelet Estimate Decreased L (NORMAL) Basophilic Stippling Slight Anisocytosis (manual) Slight Puncture Site pCO2 (35-45) mm/Hg pO2 (80-100) mm/Hg HCO3 (21-28) mmol/L ABG pH (7.35-7.45) ABG Total CO2 (22-28) mmol/L ABG O2 Saturation (95-98) % ABG Base Excess (-2.0-3.0) mmol/L ABG Hemoglobin (11.7-17.4) g/dL ABG Carboxyhemoglobin (0.5-1.5) % POC ABG HHb (Measured) (0.0-5.0) % ABG Methemoglobin (0.0-3.0) % Crescencio Test A-a O2 Difference mm/Hg Respiratory Index Hgb O2 Saturation (95.0-98.0) % Vent Mode Mechanical Rate FiO2 % Tidal Volume PEEP Sodium 132 (132-148) mmol/L Potassium 3.2 L (3.6-5.2) mmol/L Chloride 95 L (98-107) mmol/L Carbon Dioxide 26 (22-30) mmol/L Anion Gap 14 (10-20) BUN 33 H (7-17) mg/dL Creatinine 1.0 (0.7-1.2) mg/dL Est GFR ( Amer) > 60 Est GFR (Non-Af Amer) 57 POC Glucose (mg/dL) 144 H (65-110) mg/dL Random Glucose 121 H (65-105) mg/dL Calcium 7.4 L (8.6-10.4) mg/dl Total Bilirubin 4.5 H (0.2-1.3) mg/dL AST 51 H D (14-36) U/L ALT 84 H (9-52) U/L Alkaline Phosphatase 81 (38-126) U/L Total Protein 5.0 L (6.3-8.3) g/dL Albumin 2.4 L (3.5-5.0) g/dL Globulin 2.6 (2.2-3.9) gm/dL Albumin/Globulin Ratio 0.9 L (1.0-2.1) 04/01/17 04/01/17 04/01/17 Range/Units 05:07 04:25 00:16 WBC (4.8-10.8) K/uL RBC (3.80-5.20) Mil/uL Hgb (11.0-16.0) g/dL Hct (34.0-47.0) % MCV (81.0-99.0) fL MCH (27.0-31.0) pg MCHC (33.0-37.0) g/dL RDW (11.5-14.5) % Plt Count (130-400) K/uL MPV (7.2-11.7) fL Neut % (Auto) (50.0-75.0) % Lymph % (Auto) (20.0-40.0) % Sargent % (Auto) (0.0-10.0) % Eos % (Auto) (0.0-4.0) % Baso % (Auto) (0.0-2.0) % Neut # (1.8-7.0) K/uL Lymph # (1.0-4.3) K/uL Sargent # (0.0-0.8) K/uL Eos # (0.0-0.7) K/uL Baso # (0.0-0.2) K/uL Neutrophils % (Manual) (50-75) % Band Neutrophils % (0-2) % Lymphocytes % (Manual) (20-40) % Monocytes % (Manual) Platelet Estimate (NORMAL) Basophilic Stippling Anisocytosis (manual) Puncture Site Rb pCO2 45 (35-45) mm/Hg pO2 121 H (80-100) mm/Hg HCO3 25.3 (21-28) mmol/L ABG pH 7.37 (7.35-7.45) ABG Total CO2 27.4 (22-28) mmol/L ABG O2 Saturation 100.3 H (95-98) % ABG Base Excess 0.5 (-2.0-3.0) mmol/L ABG Hemoglobin 8.5 L (11.7-17.4) g/dL ABG Carboxyhemoglobin 2.6 H (0.5-1.5) % POC ABG HHb (Measured) -0.3 L (0.0-5.0) % ABG Methemoglobin 0.8 (0.0-3.0) % Crescencio Test Na A-a O2 Difference 108.0 mm/Hg Respiratory Index 0.9 Hgb O2 Saturation 96.9 (95.0-98.0) % Vent Mode Prvc Mechanical Rate 16 FiO2 40.0 % Tidal Volume 350 PEEP 18 Sodium (132-148) mmol/L Potassium (3.6-5.2) mmol/L Chloride (98-107) mmol/L Carbon Dioxide (22-30) mmol/L Anion Gap (10-20) BUN (7-17) mg/dL Creatinine (0.7-1.2) mg/dL Est GFR ( Amer) Est GFR (Non-Af Amer) POC Glucose (mg/dL) 151 H 139 H (65-110) mg/dL Random Glucose (65-105) mg/dL Calcium (8.6-10.4) mg/dl Total Bilirubin (0.2-1.3) mg/dL AST (14-36) U/L ALT (9-52) U/L Alkaline Phosphatase (38-126) U/L Total Protein (6.3-8.3) g/dL Albumin (3.5-5.0) g/dL Globulin (2.2-3.9) gm/dL Albumin/Globulin Ratio (1.0-2.1) 03/31/17 03/31/17 Range/Units 18:10 17:42 WBC (4.8-10.8) K/uL RBC (3.80-5.20) Mil/uL Hgb (11.0-16.0) g/dL Hct (34.0-47.0) % MCV (81.0-99.0) fL MCH (27.0-31.0) pg MCHC (33.0-37.0) g/dL RDW (11.5-14.5) % Plt Count (130-400) K/uL MPV (7.2-11.7) fL Neut % (Auto) (50.0-75.0) % Lymph % (Auto) (20.0-40.0) % Sargent % (Auto) (0.0-10.0) % Eos % (Auto) (0.0-4.0) % Baso % (Auto) (0.0-2.0) % Neut # (1.8-7.0) K/uL Lymph # (1.0-4.3) K/uL Sargent # (0.0-0.8) K/uL Eos # (0.0-0.7) K/uL Baso # (0.0-0.2) K/uL Neutrophils % (Manual) (50-75) % Band Neutrophils % (0-2) % Lymphocytes % (Manual) (20-40) % Monocytes % (Manual) Platelet Estimate (NORMAL) Basophilic Stippling Anisocytosis (manual) Puncture Site pCO2 (35-45) mm/Hg pO2 (80-100) mm/Hg HCO3 (21-28) mmol/L ABG pH (7.35-7.45) ABG Total CO2 (22-28) mmol/L ABG O2 Saturation (95-98) % ABG Base Excess (-2.0-3.0) mmol/L ABG Hemoglobin (11.7-17.4) g/dL ABG Carboxyhemoglobin (0.5-1.5) % POC ABG HHb (Measured) (0.0-5.0) % ABG Methemoglobin (0.0-3.0) % Crescencio Test A-a O2 Difference mm/Hg Respiratory Index Hgb O2 Saturation (95.0-98.0) % Vent Mode Mechanical Rate FiO2 % Tidal Volume PEEP Sodium 128 L (132-148) mmol/L Potassium (3.6-5.2) mmol/L Chloride (98-107) mmol/L Carbon Dioxide (22-30) mmol/L Anion Gap (10-20) BUN (7-17) mg/dL Creatinine (0.7-1.2) mg/dL Est GFR ( Amer) Est GFR (Non-Af Amer) POC Glucose (mg/dL) 141 H (65-110) mg/dL Random Glucose (65-105) mg/dL Calcium (8.6-10.4) mg/dl Total Bilirubin (0.2-1.3) mg/dL AST (14-36) U/L ALT (9-52) U/L Alkaline Phosphatase (38-126) U/L Total Protein (6.3-8.3) g/dL Albumin (3.5-5.0) g/dL Globulin (2.2-3.9) gm/dL Albumin/Globulin Ratio (1.0-2.1) Laboratory Results - last 24 hr 03/31/17 03/31/17 04/01/17 17:42 18:10 00:16 WBC RBC Hgb Hct MCV MCH MCHC RDW Plt Count MPV Neut % (Auto) Lymph % (Auto) Sargent % (Auto) Eos % (Auto) Baso % (Auto) Neut # Lymph # Sargent # Eos # Baso # Neutrophils % (Manual) Band Neutrophils % Lymphocytes % (Manual) Monocytes % (Manual) Platelet Estimate Basophilic Stippling Anisocytosis (manual) Puncture Site pCO2 pO2 HCO3 ABG pH ABG Total CO2 ABG O2 Saturation ABG Base Excess ABG Hemoglobin ABG Carboxyhemoglobin POC ABG HHb (Measured) ABG Methemoglobin Crescencio Test A-a O2 Difference Respiratory Index Hgb O2 Saturation Vent Mode Mechanical Rate FiO2 Tidal Volume PEEP Sodium 128 L Potassium Chloride Carbon Dioxide Anion Gap BUN Creatinine Est GFR ( Amer) Est GFR (Non-Af Amer) POC Glucose (mg/dL) 141 H 139 H Random Glucose Calcium Total Bilirubin AST ALT Alkaline Phosphatase Total Protein Albumin Globulin Albumin/Globulin Ratio 04/01/17 04/01/17 04/01/17 04:25 05:07 06:16 WBC 28.6 H RBC 2.27 L Hgb 7.9 L Hct 24.1 L MCV 106.4 H MCH 35.0 H MCHC 32.9 L RDW 17.1 H Plt Count 30 L* MPV 9.0 Neut % (Auto) 95.0 H Lymph % (Auto) 1.9 L Sargent % (Auto) 2.7 Eos % (Auto) 0.3 Baso % (Auto) 0.1 Neut # 27.2 H Lymph # 0.5 L Sargent # 0.8 Eos # 0.1 Baso # 0.0 Neutrophils % (Manual) 95 H Band Neutrophils % 4 H Lymphocytes % (Manual) 1 L Monocytes % (Manual) TEST NOT PERFORMED Platelet Estimate Decreased L Basophilic Stippling Slight Anisocytosis (manual) Slight Puncture Site Rb pCO2 45 pO2 121 H HCO3 25.3 ABG pH 7.37 ABG Total CO2 27.4 ABG O2 Saturation 100.3 H ABG Base Excess 0.5 ABG Hemoglobin 8.5 L ABG Carboxyhemoglobin 2.6 H POC ABG HHb (Measured) -0.3 L ABG Methemoglobin 0.8 Crescencio Test Na A-a O2 Difference 108.0 Respiratory Index 0.9 Hgb O2 Saturation 96.9 Vent Mode Prvc Mechanical Rate 16 FiO2 40.0 Tidal Volume 350 PEEP 18 Sodium Potassium Chloride Carbon Dioxide Anion Gap BUN Creatinine Est GFR ( Amer) Est GFR (Non-Af Amer) POC Glucose (mg/dL) 151 H Random Glucose Calcium Total Bilirubin AST ALT Alkaline Phosphatase Total Protein Albumin Globulin Albumin/Globulin Ratio 04/01/17 04/01/17 06:17 11:48 WBC RBC Hgb Hct MCV MCH MCHC RDW Plt Count MPV Neut % (Auto) Lymph % (Auto) Sargent % (Auto) Eos % (Auto) Baso % (Auto) Neut # Lymph # Sargent # Eos # Baso # Neutrophils % (Manual) Band Neutrophils % Lymphocytes % (Manual) Monocytes % (Manual) Platelet Estimate Basophilic Stippling Anisocytosis (manual) Puncture Site pCO2 pO2 HCO3 ABG pH ABG Total CO2 ABG O2 Saturation ABG Base Excess ABG Hemoglobin ABG Carboxyhemoglobin POC ABG HHb (Measured) ABG Methemoglobin Crescencio Test A-a O2 Difference Respiratory Index Hgb O2 Saturation Vent Mode Mechanical Rate FiO2 Tidal Volume PEEP Sodium 132 Potassium 3.2 L Chloride 95 L Carbon Dioxide 26 Anion Gap 14 BUN 33 H Creatinine 1.0 Est GFR ( Amer) > 60 Est GFR (Non-Af Amer) 57 POC Glucose (mg/dL) 144 H Random Glucose 121 H Calcium 7.4 L Total Bilirubin 4.5 H AST 51 H D ALT 84 H Alkaline Phosphatase 81 Total Protein 5.0 L Albumin 2.4 L Globulin 2.6 Albumin/Globulin Ratio 0.9 L Fingerstick Blood Sugar Results: 144 Review of Systems - Review of Systems Systems not reviewed;Unavailable: Intubated Critical Care Progress Note - Nutrition Nutrition: Nutrition Category Date Time Status Heart Healthy Diet [DIET] Diets 03/17/17 Dinner Active Assessment/Plan (1) Severe sepsis Assessment and plan: 61yo F. PMMHx ETOH abuse. p/w septic shock, ARDS. Neuro: minimal response, no sedation. Pulm: acute respiratory failure, ARDS resolving, on vent using lung protective strategies, decreasing PEEP. CV: septic shock resolving, now off all pressors. Hem: severe thrombocytopenia, transfusing platelets, improving. Renal: hyponatremia improved, stopping hypertonics, starting diuresis with lasix drip and concomitant albumin drip. Endo: SISS q6h GI: Glucerna@45 ID: septic shock, UTI and RLL PNA. Started on Tigecycline (03/29). DVT proph - SCD's, lovenox half dose with platelets b/w 25-50k GI proph - protonix duong for strict I/O's during acute illness Code status - full code Critical Care Time spent 45 minutes Multi-disciplinary rounds were performed with house staff, nursing, speech therapy, respiratory therapy, pharmacy and nutrition with integrated input from the primary team/attending and other consulting services. The documented time is cumulative and includes review of patient data/exams/labs/chart review and examination of the patient on rounds and throughout the day; time is exclusive of any procedures or teaching time. Current Visit: Yes Status: Acute
[2017-04-01] MEDS ORDERED: Albumin Human 25% (12.5 gm/50 ml) IV ONE (16:15)
[2017-04-02] MEDS: Albuterol-Ipratrop 3 mg / 0.5 (3 ml) UD INH SCH ×4 (01:32→19:27)
[2017-04-02] MEDS: Furosemide 100 MG in Sodium Chloride 0.9% 90 ML IV SCH (02:18)
[2017-04-02 04:28] LABS: ABG ALLEN TEST POS; ABG MECHANICAL RATE 16; ARTERIAL BLOOD GAS MODE PRVC; ARTERIAL BLOOD HGB O2 SAT 97.5 % (95.0-98.0); ATERIAL BLOOD GAS PEEP 15; CARBOXYHEMOGLOBIN 2.7 % (0.5-1.5); DRAW SITE RR; HHB -0.9 % (0.0-5.0); METHEMOGLOBIN 0.7 % (0.0-3.0)
[2017-04-02] MEDS: (Novolog) Insulin Aspart, Recombinant 100 u/ml 10 ml vial SC SCH ×5 (05:19→23:33)
[2017-04-02 06:22] LABS: BASO # 0.1 K/uL (0.0-0.2); BASO % 0.5 % (0.0-2.0); EOS % 0.1 % (0.0-4.0); HEMATOCRIT 23.6 % (34.0-47.0); LYMPH # 0.7 K/uL (1.0-4.3); LYMPH % 2.8 % (20.0-40.0); MEAN CELL VOLUME 106.9 fL (81.0-99.0); MEAN CORPUSCULAR HEMOGLOBIN 35.1 pg (27.0-31.0); MEAN CORPUSCULAR HGB CONC 32.9 g/dL (33.0-37.0); MEAN PLATELET VOLUME 8.8 fL (7.2-11.7); MONO # 0.2 K/uL (0.0-0.8); MONO % 0.8 % (0.0-10.0); PLATELET COUNT 34 K/uL (130-400); RED CELL DISTRIBUTION WIDTH 16.9 % (11.5-14.5); WHITE BLOOD COUNT 24.1 K/uL (4.8-10.8)
[2017-04-02 06:29] LABS: ALB/GLOB RATIO 0.9 (1.0-2.1); ALKALINE PHOSPHATASE 81 U/L (38-126); ALT/SGPT 70 U/L (9-52); AST/SGOT 39 U/L (14-36); BLOOD UREA NITROGEN 42 mg/dL (7-17); CALCIUM 8.2 mg/dl (8.6-10.4); CARBON DIOXIDE 27 mmol/L (22-30); CHLORIDE 98 mmol/L (98-107); GFR AFRICAN-AMERICAN > 60; GLUCOSE,RANDOM 128 mg/dL (65-105); POTASSIUM 3.2 mmol/L (3.6-5.2); SODIUM 138 mmol/L (132-148); TOTAL PROTEIN 5.1 g/dL (6.3-8.3)
[2017-04-02 08:36] LABS: NEUTROPHIL 97 % (50-75); TOTAL CELLS COUNTED 100
[2017-04-02] MEDS ORDERED: Potassium Chloride 20 mEq/15 ml LIQ UD PO STA ×2 (09:02→10:07)
--- NOTE | 2017-04-02 09:07 | RAD ---
Chest x-ray single frontal view History: Ventilator. Comparison: 04/01/2017 Findings: Lines and tubes in stable position. Biapical pleural thickening with upper lobe granulomatous changes. Moderate venous congestion. Patchy bibasilar airspace opacities with a somewhat nodular configuration at the left lung base. Top normal heart size. Degenerative changes in the spine and shoulders. Impression: Lines and tubes in stable position. Biapical pleural thickening with upper lobe granulomatous changes. Moderate venous congestion. Patchy bibasilar airspace opacities with a somewhat nodular configuration at the left lung base.
[2017-04-02] MEDS ORDERED: Albumin Human 25% (12.5 gm/50 ml) IV ONE (09:24)
[2017-04-02 09:55] LABS: MAGNESIUM 1.4 mg/dL (1.6-2.3); PHOSPHOROUS 3.2 mg/dL (2.5-4.5)
[2017-04-02] MEDS: Potassium & Sodium Phosphate PO SCH ×2 (10:14→18:46)
--- NOTE | 2017-04-02 10:38 | CP.CCUPN ---
CCU Subjective - Physician Review Subjective (Free Text): PGY1 ICU Progress Note for Dr. Davis Patient seen and examined at bedside this morning. Patient intubated. Patient is not currently on any sedation. ROS unobtainable. CCU Objective - Vital Signs / Intake & Output Vital Signs (Last 4 hours): Vital Signs Pulse Resp BP Pulse Ox 04/02/17 10:13 114/78 04/02/17 10:00 111 H 21 96 04/02/17 09:53 111 H 22 145/92 H 96 04/02/17 09:07 115 H 22 145/92 H 100 04/02/17 09:00 111 H 20 99 04/02/17 08:07 96 H 15 99/64 L 99 04/02/17 08:00 95 H 13 98 04/02/17 07:07 108 H 20 127/85 99 04/02/17 07:00 102 H 17 99 Intake and Output (Last 8hrs): Intake & Output 04/01/17 04/02/17 04/02/17 22:59 06:59 14:59 Intake Total 1063 685 135 Output Total 670 870 300 Balance 393 -185 -165 Weight 150 lb 11.2 oz 115 lb Intake: Intake, IV Amount 400 280 0 Right Distal Port 150 80 0 Internal Jugular Right Medial Port 100 100 0 Internal Jugular Right Proximal Port 150 100 Internal Jugular Tube Feeding 360 405 135 Blood Product 303 Apheresis Plts Acda Lr 303 1st Con Unit [id number] Output: Urine 670 870 300 Urethral (Gusman) 670 870 300 Stool 0 Emesis 0 Other: # Bowel Movements 1 1 - Physical Exam Head: Positive for: Atraumatic, Normocephalic Pupils: Positive for: PERRL Mouth: Positive for: Moist Mucous Membranes, Other (intubated) Neck: Positive for: Normal Range of Motion Respiratory/Chest: Positive for: Rales, Rhonchi. Negative for: Accessory Muscle Use Cardiovascular: Positive for: Regular Rate and Rhythm Abdomen: Positive for: Normal Bowel Sounds, Other (+ fluid wave (ascites)). Negative for: Tenderness Upper Extremity: Positive for: Other (multiple areas of ecchymosis) Lower Extremity: Positive for: Edema, Other (ecchymosis) Neurological: Positive for: Other (intubated. Patient moves spontaneously but does not open her eyes to voice commands or respond to pain. ) Skin: Positive for: Warm, Dry Psychiatric: Positive for: Other (sedated. intubated) - Medications Active Medications: Active Medications Generic Name Dose Route Start Last Admin Trade Name Augustq PRN Reason Stop Dose Admin Albuterol/Ipratropium 3 ml 03/30/17 14:00 04/02/17 07:27 Duoneb 3 Mg/0.5 Mg (3 Ml) Ud INH 3 ml RQ6 [facility] Administration Enoxaparin Sodium 20 mg 04/01/17 10:30 04/01/17 11:13 Lovenox SC 20 mg DAILY [facility] Administration Tigecycline 50 mg/ Sodium 100 mls @ 100 mls/hr 03/30/17 07:00 04/02/17 06:24 Chloride IVPB 100 mls/hr Q12H [facility] Administration Potassium Chloride 20 meq in 100 mls @ 50 mls/hr 04/02/17 09:15 04/02/17 10: 12 Potassium Chloride 20 Meq/100 Ml IVPB 04/02/17 13:14 50 mls/hr Q2H [facility] Administration Insulin Aspart 0 unit 03/28/17 12:00 04/02/17 05:19 Novolog SC 1 unit Q6 [facility] Administration Protocol Pantoprazole Sodium 40 mg 03/28/17 09:30 04/02/17 10:13 Protonix Inj IVP 40 mg Q12H [facility] Administration Potassium Phos/Sodium Phos 1 pkt 03/30/17 11:45 04/02/17 10:14 Neutra-Phos PO 1 pkt BID [facility] Administration - Patient Studies Lab Studies: Microbiology Studies 03/30/17 11:10 Blood Culture - Preliminary Blood-Thru Central Line NO GROWTH AFTER 48 HOURS 03/30/17 11:10 Blood Culture - Preliminary Blood-Thru Central Line NO GROWTH AFTER 48 HOURS 03/27/17 11:25 Blood Culture - Final Blood-Venous NO GROWTH AFTER 5 DAYS Gram Stain - Final TEST NOT PERFORMED 03/27/17 11:05 Blood Culture - Final Blood-Venous NO GROWTH AFTER 5 DAYS Gram Stain - Final TEST NOT PERFORMED 03/30/17 05:25 Gram Stain - Final Trachasp Sputum Culture - Final NORMAL ORAL RADHA Lab Studies 04/02/17 04/02/17 04/02/17 Range/Units 06:03 06:03 05:17 WBC 24.1 H (4.8-10.8) K/uL RBC 2.21 L (3.80-5.20) Mil/uL Hgb 7.8 L (11.0-16.0) g/dL Hct 23.6 L (34.0-47.0) % MCV 106.9 H (81.0-99.0) fL MCH 35.1 H (27.0-31.0) pg MCHC 32.9 L (33.0-37.0) g/dL RDW 16.9 H (11.5-14.5) % Plt Count 34 L (130-400) K/uL MPV 8.8 (7.2-11.7) fL Neut % (Auto) 95.8 H (50.0-75.0) % Lymph % (Auto) 2.8 L (20.0-40.0) % [place] % (Auto) 0.8 (0.0-10.0) % Eos % (Auto) 0.1 (0.0-4.0) % Baso % (Auto) 0.5 (0.0-2.0) % Neut # 23.1 H (1.8-7.0) K/uL Lymph # 0.7 L (1.0-4.3) K/uL [place] # 0.2 (0.0-0.8) K/uL Eos # 0.0 (0.0-0.7) K/uL Baso # 0.1 (0.0-0.2) K/uL Neutrophils % (Manual) 97 H (50-75) % Lymphocytes % (Manual) 3 L (20-40) % Monocytes % (Manual) TEST NOT PERFORMED Platelet Estimate Decreased L (NORMAL) Polychromasia Slight Hypochromasia (manual) Slight Anisocytosis (manual) Slight Macrocytosis (manual) Moderate Target Cells Slight Puncture Site pCO2 (35-45) mm/Hg pO2 (80-100) mm/Hg HCO3 (21-28) mmol/L ABG pH (7.35-7.45) ABG Total CO2 (22-28) mmol/L ABG O2 Saturation (95-98) % ABG Base Excess (-2.0-3.0) mmol/L ABG Hemoglobin (11.7-17.4) g/dL ABG Carboxyhemoglobin (0.5-1.5) % POC ABG HHb (Measured) (0.0-5.0) % ABG Methemoglobin (0.0-3.0) % Crescencio Test A-a O2 Difference mm/Hg Respiratory Index Hgb O2 Saturation (95.0-98.0) % Vent Mode Mechanical Rate FiO2 % Tidal Volume PEEP Sodium 138 (132-148) mmol/L Potassium 3.2 L (3.6-5.2) mmol/L Chloride 98 (98-107) mmol/L Carbon Dioxide 27 (22-30) mmol/L Anion Gap 16 (10-20) BUN 42 H (7-17) mg/dL Creatinine 1.1 (0.7-1.2) mg/dL Est GFR ( Amer) > 60 Est GFR (Non-Af Amer) 51 POC Glucose (mg/dL) 151 H (65-110) mg/dL Random Glucose 128 H (65-105) mg/dL Calcium 8.2 L (8.6-10.4) mg/dl Phosphorus 3.2 (2.5-4.5) mg/dL Magnesium 1.4 L (1.6-2.3) mg/dL Total Bilirubin 5.0 H (0.2-1.3) mg/dL AST 39 H D (14-36) U/L ALT 70 H (9-52) U/L Alkaline Phosphatase 81 (38-126) U/L Total Protein 5.1 L (6.3-8.3) g/dL Albumin 2.5 L (3.5-5.0) g/dL Globulin 2.6 (2.2-3.9) gm/dL Albumin/Globulin Ratio 0.9 L (1.0-2.1) C. difficile Ag & Toxin (NEGATIVE) 04/02/17 04/02/17 04/01/17 Range/Units 04:20 00:04 18:15 WBC (4.8-10.8) K/uL RBC (3.80-5.20) Mil/uL Hgb (11.0-16.0) g/dL Hct (34.0-47.0) % MCV (81.0-99.0) fL MCH (27.0-31.0) pg MCHC (33.0-37.0) g/dL RDW (11.5-14.5) % Plt Count (130-400) K/uL MPV (7.2-11.7) fL Neut % (Auto) (50.0-75.0) % Lymph % (Auto) (20.0-40.0) % [place] % (Auto) (0.0-10.0) % Eos % (Auto) (0.0-4.0) % Baso % (Auto) (0.0-2.0) % Neut # (1.8-7.0) K/uL Lymph # (1.0-4.3) K/uL [place] # (0.0-0.8) K/uL Eos # (0.0-0.7) K/uL Baso # (0.0-0.2) K/uL Neutrophils % (Manual) (50-75) % Lymphocytes % (Manual) (20-40) % Monocytes % (Manual) Platelet Estimate (NORMAL) Polychromasia Hypochromasia (manual) Anisocytosis (manual) Macrocytosis (manual) Target Cells Puncture Site Rr pCO2 49 H (35-45) mm/Hg pO2 122 H (80-100) mm/Hg HCO3 25.9 (21-28) mmol/L ABG pH 7.35 (7.35-7.45) ABG Total CO2 28.6 H (22-28) mmol/L ABG O2 Saturation 100.9 H (95-98) % ABG Base Excess 1.2 (-2.0-3.0) mmol/L ABG Hemoglobin 7.9 L (11.7-17.4) g/dL ABG Carboxyhemoglobin 2.7 H (0.5-1.5) % POC ABG HHb (Measured) -0.9 L (0.0-5.0) % ABG Methemoglobin 0.7 (0.0-3.0) % Crescencio Test Pos A-a O2 Difference 102.0 mm/Hg Respiratory Index 0.8 Hgb O2 Saturation 97.5 (95.0-98.0) % Vent Mode Prvc Mechanical Rate 16 FiO2 40.0 % Tidal Volume 350 PEEP 15 Sodium (132-148) mmol/L Potassium (3.6-5.2) mmol/L Chloride (98-107) mmol/L Carbon Dioxide (22-30) mmol/L Anion Gap (10-20) BUN (7-17) mg/dL Creatinine (0.7-1.2) mg/dL Est GFR ( Amer) Est GFR (Non-Af Amer) POC Glucose (mg/dL) 155 H 136 H (65-110) mg/dL Random Glucose (65-105) mg/dL Calcium (8.6-10.4) mg/dl Phosphorus (2.5-4.5) mg/dL Magnesium (1.6-2.3) mg/dL Total Bilirubin (0.2-1.3) mg/dL AST (14-36) U/L ALT (9-52) U/L Alkaline Phosphatase (38-126) U/L Total Protein (6.3-8.3) g/dL Albumin (3.5-5.0) g/dL Globulin (2.2-3.9) gm/dL Albumin/Globulin Ratio (1.0-2.1) C. difficile Ag & Toxin (NEGATIVE) 04/01/17 04/01/17 Range/Units 16:18 11:48 WBC (4.8-10.8) K/uL RBC (3.80-5.20) Mil/uL Hgb (11.0-16.0) g/dL Hct (34.0-47.0) % MCV (81.0-99.0) fL MCH (27.0-31.0) pg MCHC (33.0-37.0) g/dL RDW (11.5-14.5) % Plt Count (130-400) K/uL MPV (7.2-11.7) fL Neut % (Auto) (50.0-75.0) % Lymph % (Auto) (20.0-40.0) % [place] % (Auto) (0.0-10.0) % Eos % (Auto) (0.0-4.0) % Baso % (Auto) (0.0-2.0) % Neut # (1.8-7.0) K/uL Lymph # (1.0-4.3) K/uL [place] # (0.0-0.8) K/uL Eos # (0.0-0.7) K/uL Baso # (0.0-0.2) K/uL Neutrophils % (Manual) (50-75) % Lymphocytes % (Manual) (20-40) % Monocytes % (Manual) Platelet Estimate (NORMAL) Polychromasia Hypochromasia (manual) Anisocytosis (manual) Macrocytosis (manual) Target Cells Puncture Site pCO2 (35-45) mm/Hg pO2 (80-100) mm/Hg HCO3 (21-28) mmol/L ABG pH (7.35-7.45) ABG Total CO2 (22-28) mmol/L ABG O2 Saturation (95-98) % ABG Base Excess (-2.0-3.0) mmol/L ABG Hemoglobin (11.7-17.4) g/dL ABG Carboxyhemoglobin (0.5-1.5) % POC ABG HHb (Measured) (0.0-5.0) % ABG Methemoglobin (0.0-3.0) % Crescencio Test A-a O2 Difference mm/Hg Respiratory Index Hgb O2 Saturation (95.0-98.0) % Vent Mode Mechanical Rate FiO2 % Tidal Volume PEEP Sodium (132-148) mmol/L Potassium (3.6-5.2) mmol/L Chloride (98-107) mmol/L Carbon Dioxide (22-30) mmol/L Anion Gap (10-20) BUN (7-17) mg/dL Creatinine (0.7-1.2) mg/dL Est GFR ( Amer) Est GFR (Non-Af Amer) POC Glucose (mg/dL) 144 H (65-110) mg/dL Random Glucose (65-105) mg/dL Calcium (8.6-10.4) mg/dl Phosphorus (2.5-4.5) mg/dL Magnesium (1.6-2.3) mg/dL Total Bilirubin (0.2-1.3) mg/dL AST (14-36) U/L ALT (9-52) U/L Alkaline Phosphatase (38-126) U/L Total Protein (6.3-8.3) g/dL Albumin (3.5-5.0) g/dL Globulin (2.2-3.9) gm/dL Albumin/Globulin Ratio (1.0-2.1) C. difficile Ag & Toxin Negative (NEGATIVE) Laboratory Results - last 24 hr 04/01/17 04/01/17 04/01/17 11:48 16:18 18:15 WBC RBC Hgb Hct MCV MCH MCHC RDW Plt Count MPV Neut % (Auto) Lymph % (Auto) [place] % (Auto) Eos % (Auto) Baso % (Auto) Neut # Lymph # [place] # Eos # Baso # Neutrophils % (Manual) Lymphocytes % (Manual) Monocytes % (Manual) Platelet Estimate Polychromasia Hypochromasia (manual) Anisocytosis (manual) Macrocytosis (manual) Target Cells Puncture Site pCO2 pO2 HCO3 ABG pH ABG Total CO2 ABG O2 Saturation ABG Base Excess ABG Hemoglobin ABG Carboxyhemoglobin POC ABG HHb (Measured) ABG Methemoglobin Crescencio Test A-a O2 Difference Respiratory Index Hgb O2 Saturation Vent Mode Mechanical Rate FiO2 Tidal Volume PEEP Sodium Potassium Chloride Carbon Dioxide Anion Gap BUN Creatinine Est GFR ( Amer) Est GFR (Non-Af Amer) POC Glucose (mg/dL) 144 H 136 H Random Glucose Calcium Phosphorus Magnesium Total Bilirubin AST ALT Alkaline Phosphatase Total Protein Albumin Globulin Albumin/Globulin Ratio C. difficile Ag & Toxin Negative 04/02/17 04/02/17 04/02/17 00:04 04:20 05:17 WBC RBC Hgb Hct MCV MCH MCHC RDW Plt Count MPV Neut % (Auto) Lymph % (Auto) [place] % (Auto) Eos % (Auto) Baso % (Auto) Neut # Lymph # [place] # Eos # Baso # Neutrophils % (Manual) Lymphocytes % (Manual) Monocytes % (Manual) Platelet Estimate Polychromasia Hypochromasia (manual) Anisocytosis (manual) Macrocytosis (manual) Target Cells Puncture Site Rr pCO2 49 H pO2 122 H HCO3 25.9 ABG pH 7.35 ABG Total CO2 28.6 H ABG O2 Saturation 100.9 H ABG Base Excess 1.2 ABG Hemoglobin 7.9 L ABG Carboxyhemoglobin 2.7 H POC ABG HHb (Measured) -0.9 L ABG Methemoglobin 0.7 Crescencio Test Pos A-a O2 Difference 102.0 Respiratory Index 0.8 Hgb O2 Saturation 97.5 Vent Mode Prvc Mechanical Rate 16 FiO2 40.0 Tidal Volume 350 PEEP 15 Sodium Potassium Chloride Carbon Dioxide Anion Gap BUN Creatinine Est GFR ( Amer) Est GFR (Non-Af Amer) POC Glucose (mg/dL) 155 H 151 H Random Glucose Calcium Phosphorus Magnesium Total Bilirubin AST ALT Alkaline Phosphatase Total Protein Albumin Globulin Albumin/Globulin Ratio C. difficile Ag & Toxin 04/02/17 04/02/17 06:03 06:03 WBC 24.1 H RBC 2.21 L Hgb 7.8 L Hct 23.6 L MCV 106.9 H MCH 35.1 H MCHC 32.9 L RDW 16.9 H Plt Count 34 L MPV 8.8 Neut % (Auto) 95.8 H Lymph % (Auto) 2.8 L [place] % (Auto) 0.8 Eos % (Auto) 0.1 Baso % (Auto) 0.5 Neut # 23.1 H Lymph # 0.7 L [place] # 0.2 Eos # 0.0 Baso # 0.1 Neutrophils % (Manual) 97 H Lymphocytes % (Manual) 3 L Monocytes % (Manual) TEST NOT PERFORMED Platelet Estimate Decreased L Polychromasia Slight Hypochromasia (manual) Slight Anisocytosis (manual) Slight Macrocytosis (manual) Moderate Target Cells Slight Puncture Site pCO2 pO2 HCO3 ABG pH ABG Total CO2 ABG O2 Saturation ABG Base Excess ABG Hemoglobin ABG Carboxyhemoglobin POC ABG HHb (Measured) ABG Methemoglobin Crescencio Test A-a O2 Difference Respiratory Index Hgb O2 Saturation Vent Mode Mechanical Rate FiO2 Tidal Volume PEEP Sodium 138 Potassium 3.2 L Chloride 98 Carbon Dioxide 27 Anion Gap 16 BUN 42 H Creatinine 1.1 Est GFR ( Amer) > 60 Est GFR (Non-Af Amer) 51 POC Glucose (mg/dL) Random Glucose 128 H Calcium 8.2 L Phosphorus 3.2 Magnesium 1.4 L Total Bilirubin 5.0 H AST 39 H D ALT 70 H Alkaline Phosphatase 81 Total Protein 5.1 L Albumin 2.5 L Globulin 2.6 Albumin/Globulin Ratio 0.9 L C. difficile Ag & Toxin Fingerstick Blood Sugar Results: 136 Review of Systems - Review of Systems Systems not reviewed;Unavailable: Intubated Critical Care Progress Note - Nutrition Nutrition: Nutrition Category Date Time Status Heart Healthy Diet [DIET] Diets 03/17/17 Dinner Active Assessment/Plan - Assessment and Plan (Free Text) Assessment: Patient is a 61 year old female with increasing respiratory distress most likely 2/2 ARDS vs pulmonary edema. Septic Shock from UTI. Plan: Respiratory: Intubated - ARDS improving RLL Pneumonia CXR 04/02 - Lines and tubes in stable position. Biapical pleural thickening with upper lobe granulomatous changes. Moderate venous congestion. Patchy bibasilar airspace opacities with a somewhat nodular configuration at the left lung base Chest CT w/o 03/27 - Marked bilateral pulmonary edema as seen on chest radiography. Small to moderate bilateral pleural effusions.Small to moderate perihepatic and perisplenic ascites. ABG - pCO2 49/pO2 122/HCO3 25.9/pH 7.35 - vent settings 350/40/16/15 Vent settings changed to 350/40/16/5 - will attempt CPAP trail for extubation Duoneb 3mL INH q6h : Septic Shock Dr. Mejia consulted Dr. Dos Santos consulted WBC decreased to 24.1 from 28.6 - Bands decreased to 0 ESBL E. Coli in urine culture (03/17). Dr. Dos Santos consulted repeat urine culture (03/26) - Proteus Mirabilis - continue on Tigecycline 50mg IVPB q12h (started on 03/30) Repeat urine 04/27 - no growth Repeat blood cultures(03/30) - no growth at 48 hours Trachasp culture 03/30 - no growth CV: Patient is off all pressers Septic shock improving GI: Albumin 2.5 - repleted Hem: Dr. Neri consulted, help appreciated Hgb decreased to 7.8 from 7.9 Platelets 34 - patient transfused platelets yesterday, will continue to monitor Fibrinogen 142 (03/30) from 156 (03/29) from 89 (03/28) - patient was given 5 units of cryoprecipitate 03/28 - if Fibrinogen falls below 100, transfuse another 5 units - continue to monitor T.Bili increased to 5.0 Nephrology: Dr. Roe consulted, help appreciated - Dr. Flynn actively covering case Hyponatremia resolved Strict I's and O's Lasix given Endo: ISS Electrolytes: Mag 1.4 - repleted Phos 3.2 Prophylactic Care: Lovenox 20mg SC daily (1/2 dose for renal dosing) protonix and SCDs Case discussed with Dr. Susan Haile Verónica PGY1
--- NOTE | 2017-04-02 11:31 | CP.PCM.PN ---
Subjective - Date & Time of Evaluation Date of Evaluation: 04/02/17 Time of Evaluation: 08:00 - Subjective Subjective: Patient intubated. Patient is not currently on any sedation. ROS unobtainable. Objective - Vital Signs/Intake and Output Vital Signs (last 24 hours): Temp Pulse Resp BP Pulse Ox 98.4 F 111 H 21 114/78 96 04/01/17 21:45 04/02/17 10:00 04/02/17 10:00 04/02/17 10:13 04/02/17 10:00 Intake and Output: 04/02/17 04/02/17 06:59 18:59 Intake Total 1348 135 Output Total 1180 300 Balance 168 -165 - Medications Medications: Current Medications Albuterol/Ipratropium (Duoneb 3 Mg/0.5 Mg (3 Ml) Ud) 3 ml INH RQ6 [facility] Last Admin: 04/02/17 07:27 Dose: 3 ml Enoxaparin Sodium (Lovenox) 20 mg SC DAILY [facility] Last Admin: 04/01/17 11:13 Dose: 20 mg Tigecycline 50 mg/ Sodium (Chloride) 100 mls @ 100 mls/hr IVPB Q12H [facility] Last Admin: 04/02/17 06:24 Dose: 100 mls/hr Potassium Chloride (Potassium Chloride 20 Meq/100 Ml) 20 meq in 100 mls @ 50 mls/hr IVPB Q2H [facility] Stop: 04/02/17 13:14 Last Admin: 04/02/17 11:04 Dose: 50 mls/hr Magnesium Sulfate/Dextrose (Magnesium Sulfate 1 Gm/100 Ml D5w) 1 gm in 100 mls @ 200 mls/hr IVPB ONCE ONE Stop: 04/02/17 12:29 Insulin Aspart (Novolog) 0 unit SC Q6 [facility] PRN Reason: Protocol Last Admin: 04/02/17 05:19 Dose: 1 unit Pantoprazole Sodium (Protonix Inj) 40 mg IVP Q12H [facility] Last Admin: 04/02/17 10:13 Dose: 40 mg Potassium Phos/Sodium Phos (Neutra-Phos) 1 pkt PO BID [facility] Last Admin: 04/02/17 10:14 Dose: 1 pkt - Labs Labs: 04/02/17 06:03 04/02/17 06:03 PT 25.0 SECONDS (9.7-12.2) H 03/30/17 06:18 INR 2.2 03/30/17 06:18 APTT 67 SECONDS (21-34) H D 03/30/17 06:18 - Constitutional Appears: Non-toxic, Cachectic - Head Exam Head Exam: NORMOCEPHALIC - Eye Exam Eye Exam: PERRL - ENT Exam ENT Exam: Mucous Membranes Dry - Neck Exam Neck Exam: absent: Lymphadenopathy - Respiratory Exam Respiratory Exam: Decreased Breath Sounds - Cardiovascular Exam Cardiovascular Exam: REGULAR RHYTHM - GI/Abdominal Exam GI & Abdominal Exam: Distended, Soft - Rectal Exam Rectal Exam: Deferred Assessment and Plan (1) Difficulty urinating Status: Acute (2) Difficulty walking Status: Acute (3) UTI (urinary tract infection) Status: Acute
[2017-04-02] MEDS ORDERED: Magnesium Sulfate 1 gm in D5W 1 GM/100 ML BAG IVPB ONE (12:00)
[2017-04-02] MEDS: Enoxaparin 40 mg Syringe SC SCH (13:42)
--- NOTE | 2017-04-02 13:53 | PN ---
DATE: LOCATION: ICU 5. SUBJECTIVE: This is a 61-year-old female seen and examined in rounds without significant clinical changes or reported active bleeding. The entire chart is reviewed, including, but not limited to the most recent lab and the radiology study results, current and previous medication, current and previous medical events. The patient is status post platelet transfusion with plateletpheresis. Today's lab showed leukocytosis of 24.1 with low hemoglobin 7.8, low hematocrit 23.6 with platelet count still low of 34. With abnormal ABG's and low potassium of 3.2, increased BUN of 42, blood glucose level 151 with total bilirubin elevated to 5, but AST down 39, ALT 70 with low albumin 2.5. Today's chest x-ray is still pending; however, yesterday chest x-ray report is seen with bilateral pneumonia and small right-sided pleural effusion. PHYSICAL EXAMINATION: GENERAL: A 61 years old female, intubated. VITAL SIGNS: Afebrile with pulse of 106 and blood pressure of 120/76. HEENT: Showed pale, dry oral mucous membrane. Bilateral icteric sclera. LUNGS: A few scattered crepitation, decreased air entry at bases. HEART: Positive S1 and S2. ABDOMEN: Soft. Bowel sounds are present. No mass or organomegaly. No rebound tenderness or guarding. EXTREMITIES: Lower extremities with edematous changes. No clubbing or cyanosis. NEUROLOGIC: No reported new neurological deficits, sensory or motor. IMPRESSION: 1. Recurrent urinary tract infection. 2. Pneumonia with respiratory failure, the patient is intubated. 3. Malnutrition with hypoalbuminemia. 4. Disseminated intravascular coagulation with severe thrombocytopenia, managed by the Hematology-sal[employer] sales consultant, Dr. Solorzano. 5. Coagulopathy secondary to above. SUGGESTIONS: 1. Continue current management. 2. Repeat stool for occult blood. 3. Correct underlying coagulopathy with underlying thrombocytopenia. 4. Further recommendation to follow. Wicho Potter MD cc: Wicho Potter MD
--- NOTE | 2017-04-02 14:26 | PN ---
DATE: SUBJECTIVE: Patient in the ventilator. Bilateral pneumonia, ARDS. Supportive care . Orlando Michel MD
--- NOTE | 2017-04-02 15:48 | CP.PCM.PN ---
Subjective - Date & Time of Evaluation Date of Evaluation: 04/02/17 Time of Evaluation: 15:46 - Subjective Subjective: Follow up Nephrology Consultation: Assessment: critical acute kidney injury with oliguria, lactic acidosis, severe thrombocytopenia, septic shock, ARDS: improved respi failure with bilateral pneumonia Hyponatremia likely due to cirrhosis: improved Hypomagnesemia, Hypokalemia, Anemia diabetes Mellitus hypertension, ex smoker, chronic etoh abuse and chronic pancreatitis UTI, back pain Plan no acute need for renal replacement therapy at this time agree with diuretics with IV lasix. supplement electrolytes. Monitor Input/Output, daily weights and renal function with basic metabolic panel Glycemic control Further work up/management as per primary team dose meds for improved GFR. Avoid fleets enema/magnesium based laxatives. Avoid nephrotoxins/NSAIDs/ iodinated contrast (unless needed emergently) Further work up for as per primary team Thanks for allowing me to participate in care of your patient. Will follow patient with you. Please call if any Qs. d/w ICU team Dr Jaya Flynn Office: [phone] Chief Complaint; unable Reason for consult: hyponatremia, SARIKA HPI: Pt is a 61 y/o F with hx of diabetes Mellitus hypertension, ex smoker, chronic etoh abuse and chronic pancreatitis initially presented with complaints of dysuria and being treated with antibiotics for UTI. she was getting D5/0.45% saline and noted to have decreased serum Na to 124 hence renal consult requested pt intubated and off pressors. BP better Physical Examination: General Appearance: ill appearing, intubated orally Vitals reviewed and noted as below Head; Atraumatic, normocephalic ENT: no ulcers no thrush. Tongue is midline/dry. Oropharynx: no rash or ulcers. Neck; supple no lymphadenopathy, no thyromegaly or bruit Lungs: normal respiratory rate/effort. Breath sounds bilateral clearer Heart: Normal rate. s1s2 normal. No rub or gallop. Extremities: 2-3+ edema. No varicose veins Neurological: Patient is non communicative Skin: Warm and dry. Normal turgor. No rash. Palpitation: Normal elasticity for age Abdomen: Abdomen is soft. Bowel sounds +. There is no abdominal tenderness, no guarding/rigidity no organomegaly has ascites Psych: unable MSK: no joint tenderness or swelling. Digits and nails normal, no deformity : kidney or bladder not palpable. has duong + Labs/imaging/EKG reviewed. Past medical history, past surgical history, family history, social history, allergy reviewed and noted as below Family hx: no hx of CKD. Rest non-contributory recent echo: normal LVEF CT abdomen: chronic pancreatitis, liver disease, increased echogenic kidneys. has compression fractures in vertebra Objective - Vital Signs/Intake and Output Vital Signs (last 24 hours): Temp Pulse Resp BP Pulse Ox 98.4 F 116 H 26 H 136/79 95 04/01/17 21:45 04/02/17 15:07 04/02/17 15:07 04/02/17 15:07 04/02/17 15:07 Intake and Output: 04/02/17 04/02/17 06:59 18:59 Intake Total 1348 660 Output Total 1180 675 Balance 168 -15 - Medications Medications: Current Medications Albuterol/Ipratropium (Duoneb 3 Mg/0.5 Mg (3 Ml) Ud) 3 ml INH RQ6 [facility] Last Admin: 04/02/17 13:34 Dose: 3 ml Enoxaparin Sodium (Lovenox) 20 mg SC DAILY [facility] Last Admin: 04/02/17 13:42 Dose: Not Given Tigecycline 50 mg/ Sodium (Chloride) 100 mls @ 100 mls/hr IVPB Q12H [facility] Last Admin: 04/02/17 06:24 Dose: 100 mls/hr Insulin Aspart (Novolog) 0 unit SC Q6 [facility] PRN Reason: Protocol Last Admin: 04/02/17 12:51 Dose: 1 unit Pantoprazole Sodium (Protonix Inj) 40 mg IVP Q12H [facility] Last Admin: 04/02/17 10:13 Dose: 40 mg Potassium Phos/Sodium Phos (Neutra-Phos) 1 pkt PO BID [facility] Last Admin: 04/02/17 10:14 Dose: 1 pkt - Labs Labs: 04/02/17 06:03 04/02/17 06:03 PT 25.0 SECONDS (9.7-12.2) H 03/30/17 06:18 INR 2.2 03/30/17 06:18 APTT 67 SECONDS (21-34) H D 03/30/17 06:18
--- NOTE | 2017-04-02 22:20 | CP.PCM.PN ---
Subjective - Date & Time of Evaluation Date of Evaluation: 04/02/17 Time of Evaluation: 20:00 - Subjective Subjective: Vented Objective - Vital Signs/Intake and Output Vital Signs (last 24 hours): Temp Pulse Resp BP Pulse Ox 98.4 F 121 H 28 H 107/74 94 L 04/02/17 20:00 04/02/17 22:07 04/02/17 22:07 04/02/17 22:07 04/02/17 22:07 Intake and Output: 04/02/17 04/03/17 18:59 06:59 Intake Total 750 135 Output Total 850 255 Balance -100 -120 - Medications Medications: Current Medications Albuterol/Ipratropium (Duoneb 3 Mg/0.5 Mg (3 Ml) Ud) 3 ml INH RQ6 [facility] Last Admin: 04/02/17 19:27 Dose: 3 ml Enoxaparin Sodium (Lovenox) 20 mg SC DAILY [facility] Last Admin: 04/02/17 13:42 Dose: Not Given Tigecycline 50 mg/ Sodium (Chloride) 100 mls @ 100 mls/hr IVPB Q12H [facility] Last Admin: 04/02/17 18:48 Dose: 100 mls/hr Insulin Aspart (Novolog) 0 unit SC Q6 [facility] PRN Reason: Protocol Last Admin: 04/02/17 18:47 Dose: 1 unit Pantoprazole Sodium (Protonix Inj) 40 mg IVP Q12H [facility] Last Admin: 04/02/17 21:17 Dose: 40 mg Potassium Phos/Sodium Phos (Neutra-Phos) 1 pkt PO BID [facility] Last Admin: 04/02/17 18:46 Dose: 1 pkt - Labs Labs: 04/02/17 06:03 04/02/17 06:03 PT 25.0 SECONDS (9.7-12.2) H 03/30/17 06:18 INR 2.2 03/30/17 06:18 APTT 67 SECONDS (21-34) H D 03/30/17 06:18 - Head Exam Head Exam: ATRAUMATIC - Eye Exam Eye Exam: Normal appearance - ENT Exam ENT Exam: Mucous Membranes Dry - Respiratory Exam Respiratory Exam: NORMAL BREATHING PATTERN - Cardiovascular Exam Cardiovascular Exam: +S1, +S2 - GI/Abdominal Exam GI & Abdominal Exam: Normal Bowel Sounds Assessment and Plan (1) DIC (disseminated intravascular coagulation) Assessment & Plan: secondary to sepsis, on ABX cryopercipitate if fibrinogen < 100 Status: Acute (2) Thrombocytopenia Assessment & Plan: secondary to DIC Status: Acute (3) Coagulopathy Assessment & Plan: DIC Status: Acute (4) Anemia Assessment & Plan: chronic disease and DIC Status: Acute
[2017-04-03] MEDS: Albuterol-Ipratrop 3 mg / 0.5 (3 ml) UD INH SCH ×4 (01:14→19:42)
[2017-04-03 04:36] LABS: ABG MECHANICAL RATE 16; ARTERIAL BLOOD GAS MODE PRVC; ARTERIAL BLOOD HGB O2 SAT 94.5 % (95.0-98.0); ATERIAL BLOOD GAS PEEP 5; CARBOXYHEMOGLOBIN 3.1 % (0.5-1.5); DRAW SITE RB; METHEMOGLOBIN 0.5 % (0.0-3.0)
[2017-04-03] MEDS: (Novolog) Insulin Aspart, Recombinant 100 u/ml 10 ml vial SC SCH ×3 (05:42→18:13)
--- NOTE | 2017-04-03 06:35 | CARD ---
APPROVED REPORT EXAM: Two-dimensional and M-mode echocardiogram with Doppler and color Doppler. Other Information Quality : GoodRhythm : INDICATION Pericarditis 2D DIMENSIONS IVSd1.0 (0.7-1.1cm)LVDd3.7 (3.9-5.9cm) PWd1.0 (0.7-1.1cm)LVEF (%)60.0 (>50%) M-Mode DIMENSIONS Left Atrium (MM)4.61 (2.5-4.0cm)Aortic Root3.02 (2.2-3.7cm) Aortic Cusp Exc.2.16 (1.5-2.0cm) Mitral Valve MV A [id number]/sE/A ratio0.0 TDI E/Lateral E'0.0E/Medial E'0.0 Tricuspid Valve TR Peak [id number]/sTR Peak Gr.[id number] LEFT VENTRICLE The left ventricle is normal size. There is normal left ventricular wall thickness. Left ventricle systolic function is normal. The Ejection Fraction is 55-60%. There is normal LV segmental wall motion. RIGHT VENTRICLE The right ventricle is normal size. There is normal right ventricular wall thickness. The right ventricular systolic function is normal. ATRIA The left atrium is mildly dilated. The right atrium size is normal. The interatrial septum is intact with no evidence for an atrial septal defect. AORTIC VALVE The aortic valve is normal in structure. No aortic regurgitation is present. There is no aortic valvular stenosis. MITRAL VALVE The mitral valve is normal in structure. There is no evidence of mitral valve prolapse. There is no mitral valve stenosis. Mitral regurgitation is mild. TRICUSPID VALVE The tricuspid valve is normal in structure. There is mild tricuspid regurgitation. Right ventricular systolic pressure is estimated at 30-40 mmHg. There is mild pulmonary hypertension. PULMONIC VALVE The pulmonic valve is not well visualized. There is no pulmonic valvular regurgitation. GREAT VESSELS The aortic root is normal in size. PERICARDIAL EFFUSION There is no evidence pericardial effusion. <Conclusion> Left ventricle systolic function is normal. The Ejection Fraction is 55-60%. No aortic regurgitation is present. Mitral regurgitation is mild. There is mild tricuspid regurgitation. There is mild pulmonary hypertension. There is no pulmonic valvular regurgitation.
[2017-04-03 06:49] LABS: BASO % 0.2 % (0.0-2.0); EOS # 0.1 K/uL (0.0-0.7); EOS % 0.3 % (0.0-4.0); HEMATOCRIT 26.4 % (34.0-47.0); LYMPH # 1.3 K/uL (1.0-4.3); LYMPH % 6.8 % (20.0-40.0); MEAN CELL VOLUME 107.6 fL (81.0-99.0); MEAN CORPUSCULAR HEMOGLOBIN 34.9 pg (27.0-31.0); MEAN CORPUSCULAR HGB CONC 32.4 g/dL (33.0-37.0); MEAN PLATELET VOLUME 9.4 fL (7.2-11.7); MONO # 0.2 K/uL (0.0-0.8); MONO % 1.3 % (0.0-10.0); NRBC % 0.1 % (0.0-2.0); RED CELL DISTRIBUTION WIDTH 17.2 % (11.5-14.5); WHITE BLOOD COUNT 18.7 K/uL (4.8-10.8)
[2017-04-03 07:02] LABS: ALB/GLOB RATIO 1.2 (1.0-2.1); ALKALINE PHOSPHATASE 87 U/L (38-126); ALT/SGPT 58 U/L (9-52); AST/SGOT 34 U/L (14-36); BILIRUBIN,TOTAL 5.4 mg/dL (0.2-1.3); BLOOD UREA NITROGEN 50 mg/dL (7-17); CALCIUM 8.3 mg/dl (8.6-10.4); CARBON DIOXIDE 25 mmol/L (22-30); CHLORIDE 102 mmol/L (98-107); GFR AFRICAN-AMERICAN > 60; GLUCOSE,RANDOM 156 mg/dL (65-105); MAGNESIUM 1.6 mg/dL (1.6-2.3); PHOSPHOROUS 2.7 mg/dL (2.5-4.5); SODIUM 140 mmol/L (132-148); TOTAL PROTEIN 4.4 g/dL (6.3-8.3)
[2017-04-03 07:21] LABS: PLATELET COUNT 7 K/uL (130-400)
[2017-04-03 08:45] LABS: NEUTROPHIL 94 % (50-75); TOTAL CELLS COUNTED 100
--- NOTE | 2017-04-03 09:29 | RAD ---
Chest x-ray single frontal view History: Intubated. Comparison: 04/02/2017 Findings: Lines and tubes in stable position. Biapical pleural thickening with upper lobe granulomatous changes. Nodular densities at the bilateral costophrenic angles. Moderate venous congestion. Patchy bibasilar airspace opacities. Trace right pleural effusion. Focal consolidative changes within the right infrahilar region. Mild cardiomegaly. Degenerative changes in the spine and shoulders. Impression: Lines and tubes in stable position. Biapical pleural thickening with upper lobe granulomatous changes. Nodular densities at the bilateral costophrenic angles. Moderate venous congestion. Patchy bibasilar airspace opacities. Trace right pleural effusion. Focal consolidative changes within the right infrahilar region. Mild cardiomegaly.
[2017-04-03] MEDS ORDERED: Magnesium Sulfate 1 gm in D5W 1 GM/100 ML BAG IVPB ONE (09:34)
[2017-04-03] MEDS: Enoxaparin 40 mg Syringe SC SCH ×2 (10:55→11:01)
[2017-04-03] MEDS: Potassium & Sodium Phosphate PO SCH ×2 (10:56→18:13)
--- NOTE | 2017-04-03 12:15 | CP.CCUPN ---
<Mic Sanches - Last Filed: 04/03/17 14:07> CCU Subjective - Physician Review Subjective (Free Text): PGY1 ICU Progress Note for Dr. Atkinson Patient seen and examined at bedside this morning. Patient intubated. Patient is not currently on any sedation. ROS unobtainable. CCU Objective - Vital Signs / Intake & Output Vital Signs (Last 4 hours): Vital Signs Pulse Resp BP Pulse Ox 04/03/17 11:07 123 H 30 H 116/72 97 04/03/17 11:00 122 H 22 97 04/03/17 10:07 107 H 25 H 93/61 L 98 04/03/17 10:00 108 H 27 H 109/71 98 04/03/17 09:07 116 H 33 H 109/71 96 04/03/17 09:00 117 H 31 H 95 04/03/17 08:07 113 H 26 H 115/75 97 Intake and Output (Last 8hrs): Intake & Output 04/02/17 04/03/17 04/03/17 22:59 06:59 14:59 Intake Total 270 460 225 Output Total 505 350 230 Balance -235 110 -5 Weight 148 lb 8 oz 148 lb Intake: Intake, IV Amount 0 100 0 Right Distal Port 0 100 0 Internal Jugular Right Medial Port 0 Internal Jugular Tube Feeding 270 360 225 Output: Urine 505 350 230 Urethral (Gusman) 505 350 230 Stool 0 Emesis 0 Other: # Bowel Movements 1 1 0 - Physical Exam Head: Positive for: Atraumatic, Normocephalic Pupils: Positive for: PERRL Extroacular Muscles: Positive for: EOMI Mouth: Positive for: Moist Mucous Membranes, Other (intubated) Neck: Positive for: Normal Range of Motion Respiratory/Chest: Positive for: Rales, Rhonchi. Negative for: Accessory Muscle Use Cardiovascular: Positive for: Regular Rate and Rhythm Abdomen: Positive for: Normal Bowel Sounds, Other (+ fluid wave (ascites)). Negative for: Tenderness Upper Extremity: Positive for: Other (multiple areas of ecchymosis) Lower Extremity: Positive for: Edema, Other (ecchymosis) Neurological: Positive for: Other (intubated. Patient moves spontaneously but does not open her eyes to voice commands or respond to pain. ) Skin: Positive for: Warm, Dry Psychiatric: Positive for: Other (sedated. intubated) - Medications Active Medications: Active Medications Generic Name Dose Route Start Last Admin Trade Name Freq PRN Reason Stop Dose Admin Albuterol/Ipratropium 3 ml 03/30/17 14:00 04/03/17 07:40 Duoneb 3 Mg/0.5 Mg (3 Ml) Ud INH 3 ml RQ6 [place] Administration Enoxaparin Sodium 20 mg 04/01/17 10:30 04/03/17 11:01 Lovenox SC Not Given DAILY [place] Tigecycline 50 mg/ Sodium 100 mls @ 100 mls/hr 03/30/17 07:00 04/03/17 06:03 Chloride IVPB 100 mls/hr Q12H [place] Administration Insulin Aspart 0 unit 03/28/17 12:00 04/03/17 05:42 Novolog SC 1 unit Q6 [place] Administration Protocol Pantoprazole Sodium 40 mg 03/28/17 09:30 04/03/17 10:00 Protonix Inj IVP 40 mg Q12H [place] Administration Potassium Phos/Sodium Phos 1 pkt 03/30/17 11:45 04/03/17 10:56 Neutra-Phos PO 1 pkt BID [place] Administration - Patient Studies Lab Studies: Microbiology Studies 03/30/17 11:10 Blood Culture - Preliminary Blood-Thru Central Line NO GROWTH AFTER 3 DAYS 03/30/17 11:10 Blood Culture - Preliminary Blood-Thru Central Line NO GROWTH AFTER 3 DAYS Lab Studies 04/03/17 04/03/17 04/03/17 Range/Units 06:37 06:37 06:37 WBC 18.7 H (4.8-10.8) K/uL RBC 2.45 L (3.80-5.20) Mil/uL Hgb 8.5 L (11.0-16.0) g/dL Hct 26.4 L (34.0-47.0) % MCV 107.6 H (81.0-99.0) fL MCH 34.9 H (27.0-31.0) pg MCHC 32.4 L (33.0-37.0) g/dL RDW 17.2 H (11.5-14.5) % Plt Count 7 L* D (130-400) K/uL MPV 9.4 (7.2-11.7) fL Neut % (Auto) 91.4 H (50.0-75.0) % Lymph % (Auto) 6.8 L (20.0-40.0) % Payette % (Auto) 1.3 (0.0-10.0) % Eos % (Auto) 0.3 (0.0-4.0) % Baso % (Auto) 0.2 (0.0-2.0) % Neut # 17.1 H (1.8-7.0) K/uL Lymph # 1.3 (1.0-4.3) K/uL Payette # 0.2 (0.0-0.8) K/uL Eos # 0.1 (0.0-0.7) K/uL Baso # 0.0 (0.0-0.2) K/uL Neutrophils % (Manual) 94 H (50-75) % Lymphocytes % (Manual) 6 L (20-40) % Monocytes % (Manual) TEST NOT PERFORMED Platelet Estimate Markedly decreased L (NORMAL) Polychromasia Slight Hypochromasia (manual) Slight Anisocytosis (manual) Slight Macrocytosis (manual) Moderate Fibrinogen 45 L (200-400) mg/dL Puncture Site pCO2 (35-45) mm/Hg pO2 (80-100) mm/Hg HCO3 (21-28) mmol/L ABG pH (7.35-7.45) ABG Total CO2 (22-28) mmol/L ABG O2 Saturation (95-98) % ABG Base Excess (-2.0-3.0) mmol/L ABG Hemoglobin (11.7-17.4) g/dL ABG Carboxyhemoglobin (0.5-1.5) % POC ABG HHb (Measured) (0.0-5.0) % ABG Methemoglobin (0.0-3.0) % Crescencio Test A-a O2 Difference mm/Hg Respiratory Index Hgb O2 Saturation (95.0-98.0) % Vent Mode Mechanical Rate FiO2 % Tidal Volume PEEP Sodium 140 (132-148) mmol/L Potassium 4.0 (3.6-5.2) mmol/L Chloride 102 (98-107) mmol/L Carbon Dioxide 25 (22-30) mmol/L Anion Gap 17 (10-20) BUN 50 H (7-17) mg/dL Creatinine 1.1 (0.7-1.2) mg/dL Est GFR ( Amer) > 60 Est GFR (Non-Af Amer) 51 POC Glucose (mg/dL) (65-110) mg/dL Random Glucose 156 H (65-105) mg/dL Calcium 8.3 L (8.6-10.4) mg/dl Phosphorus 2.7 (2.5-4.5) mg/dL Magnesium 1.6 (1.6-2.3) mg/dL Total Bilirubin 5.4 H (0.2-1.3) mg/dL AST 34 (14-36) U/L ALT 58 H (9-52) U/L Alkaline Phosphatase 87 (38-126) U/L Total Protein 4.4 L (6.3-8.3) g/dL Albumin 2.4 L (3.5-5.0) g/dL Globulin 2.0 L (2.2-3.9) gm/dL Albumin/Globulin Ratio 1.2 (1.0-2.1) 04/03/17 04/03/17 04/02/17 Range/Units 05:22 04:30 23:30 WBC (4.8-10.8) K/uL RBC (3.80-5.20) Mil/uL Hgb (11.0-16.0) g/dL Hct (34.0-47.0) % MCV (81.0-99.0) fL MCH (27.0-31.0) pg MCHC (33.0-37.0) g/dL RDW (11.5-14.5) % Plt Count (130-400) K/uL MPV (7.2-11.7) fL Neut % (Auto) (50.0-75.0) % Lymph % (Auto) (20.0-40.0) % Payette % (Auto) (0.0-10.0) % Eos % (Auto) (0.0-4.0) % Baso % (Auto) (0.0-2.0) % Neut # (1.8-7.0) K/uL Lymph # (1.0-4.3) K/uL Payette # (0.0-0.8) K/uL Eos # (0.0-0.7) K/uL Baso # (0.0-0.2) K/uL Neutrophils % (Manual) (50-75) % Lymphocytes % (Manual) (20-40) % Monocytes % (Manual) Platelet Estimate (NORMAL) Polychromasia Hypochromasia (manual) Anisocytosis (manual) Macrocytosis (manual) Fibrinogen (200-400) mg/dL Puncture Site Rb pCO2 36 (35-45) mm/Hg pO2 69 L (80-100) mm/Hg HCO3 25.2 (21-28) mmol/L ABG pH 7.44 (7.35-7.45) ABG Total CO2 25.6 (22-28) mmol/L ABG O2 Saturation 97.9 (95-98) % ABG Base Excess 0.4 (-2.0-3.0) mmol/L ABG Hemoglobin 8.8 L (11.7-17.4) g/dL ABG Carboxyhemoglobin 3.1 H (0.5-1.5) % POC ABG HHb (Measured) 2.0 (0.0-5.0) % ABG Methemoglobin 0.5 (0.0-3.0) % Crescencio Test Na A-a O2 Difference 171.0 mm/Hg Respiratory Index 2.5 Hgb O2 Saturation 94.5 L (95.0-98.0) % Vent Mode Prvc Mechanical Rate 16 FiO2 40.0 % Tidal Volume 400 PEEP 5 Sodium (132-148) mmol/L Potassium (3.6-5.2) mmol/L Chloride (98-107) mmol/L Carbon Dioxide (22-30) mmol/L Anion Gap (10-20) BUN (7-17) mg/dL Creatinine (0.7-1.2) mg/dL Est GFR ( Amer) Est GFR (Non-Af Amer) POC Glucose (mg/dL) 194 H 191 H (65-110) mg/dL Random Glucose (65-105) mg/dL Calcium (8.6-10.4) mg/dl Phosphorus (2.5-4.5) mg/dL Magnesium (1.6-2.3) mg/dL Total Bilirubin (0.2-1.3) mg/dL AST (14-36) U/L ALT (9-52) U/L Alkaline Phosphatase (38-126) U/L Total Protein (6.3-8.3) g/dL Albumin (3.5-5.0) g/dL Globulin (2.2-3.9) gm/dL Albumin/Globulin Ratio (1.0-2.1) 04/02/17 Range/Units 17:23 WBC (4.8-10.8) K/uL RBC (3.80-5.20) Mil/uL Hgb (11.0-16.0) g/dL Hct (34.0-47.0) % MCV (81.0-99.0) fL MCH (27.0-31.0) pg MCHC (33.0-37.0) g/dL RDW (11.5-14.5) % Plt Count (130-400) K/uL MPV (7.2-11.7) fL Neut % (Auto) (50.0-75.0) % Lymph % (Auto) (20.0-40.0) % Payette % (Auto) (0.0-10.0) % Eos % (Auto) (0.0-4.0) % Baso % (Auto) (0.0-2.0) % Neut # (1.8-7.0) K/uL Lymph # (1.0-4.3) K/uL Payette # (0.0-0.8) K/uL Eos # (0.0-0.7) K/uL Baso # (0.0-0.2) K/uL Neutrophils % (Manual) (50-75) % Lymphocytes % (Manual) (20-40) % Monocytes % (Manual) Platelet Estimate (NORMAL) Polychromasia Hypochromasia (manual) Anisocytosis (manual) Macrocytosis (manual) Fibrinogen (200-400) mg/dL Puncture Site pCO2 (35-45) mm/Hg pO2 (80-100) mm/Hg HCO3 (21-28) mmol/L ABG pH (7.35-7.45) ABG Total CO2 (22-28) mmol/L ABG O2 Saturation (95-98) % ABG Base Excess (-2.0-3.0) mmol/L ABG Hemoglobin (11.7-17.4) g/dL ABG Carboxyhemoglobin (0.5-1.5) % POC ABG HHb (Measured) (0.0-5.0) % ABG Methemoglobin (0.0-3.0) % Crescencio Test A-a O2 Difference mm/Hg Respiratory Index Hgb O2 Saturation (95.0-98.0) % Vent Mode Mechanical Rate FiO2 % Tidal Volume PEEP Sodium (132-148) mmol/L Potassium (3.6-5.2) mmol/L Chloride (98-107) mmol/L Carbon Dioxide (22-30) mmol/L Anion Gap (10-20) BUN (7-17) mg/dL Creatinine (0.7-1.2) mg/dL Est GFR ( Amer) Est GFR (Non-Af Amer) POC Glucose (mg/dL) 192 H (65-110) mg/dL Random Glucose (65-105) mg/dL Calcium (8.6-10.4) mg/dl Phosphorus (2.5-4.5) mg/dL Magnesium (1.6-2.3) mg/dL Total Bilirubin (0.2-1.3) mg/dL AST (14-36) U/L ALT (9-52) U/L Alkaline Phosphatase (38-126) U/L Total Protein (6.3-8.3) g/dL Albumin (3.5-5.0) g/dL Globulin (2.2-3.9) gm/dL Albumin/Globulin Ratio (1.0-2.1) Laboratory Results - last 24 hr 04/02/17 04/02/17 04/03/17 17:23 23:30 04:30 WBC RBC Hgb Hct MCV MCH MCHC RDW Plt Count MPV Neut % (Auto) Lymph % (Auto) Payette % (Auto) Eos % (Auto) Baso % (Auto) Neut # Lymph # Payette # Eos # Baso # Neutrophils % (Manual) Lymphocytes % (Manual) Monocytes % (Manual) Platelet Estimate Polychromasia Hypochromasia (manual) Anisocytosis (manual) Macrocytosis (manual) Fibrinogen Puncture Site Rb pCO2 36 pO2 69 L HCO3 25.2 ABG pH 7.44 ABG Total CO2 25.6 ABG O2 Saturation 97.9 ABG Base Excess 0.4 ABG Hemoglobin 8.8 L ABG Carboxyhemoglobin 3.1 H POC ABG HHb (Measured) 2.0 ABG Methemoglobin 0.5 Crescencio Test Na A-a O2 Difference 171.0 Respiratory Index 2.5 Hgb O2 Saturation 94.5 L Vent Mode Prvc Mechanical Rate 16 FiO2 40.0 Tidal Volume 400 PEEP 5 Sodium Potassium Chloride Carbon Dioxide Anion Gap BUN Creatinine Est GFR ( Amer) Est GFR (Non-Af Amer) POC Glucose (mg/dL) 192 H 191 H Random Glucose Calcium Phosphorus Magnesium Total Bilirubin AST ALT Alkaline Phosphatase Total Protein Albumin Globulin Albumin/Globulin Ratio 04/03/17 04/03/17 04/03/17 05:22 06:37 06:37 WBC 18.7 H RBC 2.45 L Hgb 8.5 L Hct 26.4 L MCV 107.6 H MCH 34.9 H MCHC 32.4 L RDW 17.2 H Plt Count 7 L* D MPV 9.4 Neut % (Auto) 91.4 H Lymph % (Auto) 6.8 L Payette % (Auto) 1.3 Eos % (Auto) 0.3 Baso % (Auto) 0.2 Neut # 17.1 H Lymph # 1.3 Payette # 0.2 Eos # 0.1 Baso # 0.0 Neutrophils % (Manual) 94 H Lymphocytes % (Manual) 6 L Monocytes % (Manual) TEST NOT PERFORMED Platelet Estimate Markedly decreased L Polychromasia Slight Hypochromasia (manual) Slight Anisocytosis (manual) Slight Macrocytosis (manual) Moderate Fibrinogen Puncture Site pCO2 pO2 HCO3 ABG pH ABG Total CO2 ABG O2 Saturation ABG Base Excess ABG Hemoglobin ABG Carboxyhemoglobin POC ABG HHb (Measured) ABG Methemoglobin Crescencio Test A-a O2 Difference Respiratory Index Hgb O2 Saturation Vent Mode Mechanical Rate FiO2 Tidal Volume PEEP Sodium 140 Potassium 4.0 Chloride 102 Carbon Dioxide 25 Anion Gap 17 BUN 50 H Creatinine 1.1 Est GFR ( Amer) > 60 Est GFR (Non-Af Amer) 51 POC Glucose (mg/dL) 194 H Random Glucose 156 H Calcium 8.3 L Phosphorus 2.7 Magnesium 1.6 Total Bilirubin 5.4 H AST 34 ALT 58 H Alkaline Phosphatase 87 Total Protein 4.4 L Albumin 2.4 L Globulin 2.0 L Albumin/Globulin Ratio 1.2 04/03/17 06:37 WBC RBC Hgb Hct MCV MCH MCHC RDW Plt Count MPV Neut % (Auto) Lymph % (Auto) Payette % (Auto) Eos % (Auto) Baso % (Auto) Neut # Lymph # Payette # Eos # Baso # Neutrophils % (Manual) Lymphocytes % (Manual) Monocytes % (Manual) Platelet Estimate Polychromasia Hypochromasia (manual) Anisocytosis (manual) Macrocytosis (manual) Fibrinogen 45 L Puncture Site pCO2 pO2 HCO3 ABG pH ABG Total CO2 ABG O2 Saturation ABG Base Excess ABG Hemoglobin ABG Carboxyhemoglobin POC ABG HHb (Measured) ABG Methemoglobin Crescencio Test A-a O2 Difference Respiratory Index Hgb O2 Saturation Vent Mode Mechanical Rate FiO2 Tidal Volume PEEP Sodium Potassium Chloride Carbon Dioxide Anion Gap BUN Creatinine Est GFR ( Amer) Est GFR (Non-Af Amer) POC Glucose (mg/dL) Random Glucose Calcium Phosphorus Magnesium Total Bilirubin AST ALT Alkaline Phosphatase Total Protein Albumin Globulin Albumin/Globulin Ratio Fingerstick Blood Sugar Results: 136 Review of Systems - Review of Systems Systems not reviewed;Unavailable: Intubated Critical Care Progress Note - Nutrition Nutrition: Nutrition Category Date Time Status Heart Healthy Diet [DIET] Diets 03/17/17 Dinner Active Assessment/Plan - Assessment and Plan (Free Text) Assessment: Patient is a 61 year old female with increasing respiratory distress most likely 2/2 ARDS vs pulmonary edema. Septic Shock from UTI. Plan: Respiratory: Intubated - ARDS improving RLL Pneumonia CXR 04/02 - Lines and tubes in stable position. Biapical pleural thickening with upper lobe granulomatous changes. Nodular densities at the bilateral costophrenic angles. Moderate venous congestion. Patchy bibasilar airspace opacities. Trace right pleural effusion. Focal consolidative changes within the right infrahilar region. Mild cardiomegaly. Chest CT w/o 03/27 - Marked bilateral pulmonary edema as seen on chest radiography. Small to moderate bilateral pleural effusions.Small to moderate perihepatic and perisplenic ascites. ABG - pCO2 36/pO2 69/HCO3 25.2/pH 7.44 - vent settings 400/40/16/5 will attempt CPAP trail for extubation Duoneb 3mL INH q6h : Septic Shock Dr. Mejia consulted Dr. Dos Santos consulted WBC decreased to 18.7 from 24.1 - Bands 0 ESBL E. Coli in urine culture (03/17). Dr. Dos Santos consulted repeat urine culture (03/26) - Proteus Mirabilis - continue on Tigecycline 50mg IVPB q12h (started on 03/30) Repeat urine 04/27 - no growth Repeat blood cultures(03/30) - no growth at 48 hours Trachasp culture 03/30 - no growth CV: Patient is off all pressers Septic shock improving GI: Albumin 2.4 Hem: Dr. Neri consulted, help appreciated Hgb increased to 8.5 from 7.8 Platelets 7 - patient transfused 1 unit of platelets Fibrinogen 45 (04/03) from 142 (03/30) from 156 (03/29) from 89 (03/28) - patient transfused 5 units of cryoprecipitate today (also 5 units on 03/28) - if Fibrinogen falls below 100, transfuse another 5 units - continue to monitor T.Bili increased to 5.4 from 5.0 Nephrology: Dr. Roe consulted, help appreciated - Dr. Flynn actively covering case Hyponatremia resolved Strict I's and O's Lasix given Endo: ISS Electrolytes: Mag 1.6 - repleted with 1 gm Phos 2.7 Prophylactic Care: Lovenox 20mg SC daily (1/2 dose for renal dosing) protonix and SCDs Case discussed with Dr. Demetrio Haile Verónica PGY1 <Erwin Atkinson - Last Filed: 04/03/17 18:08> CCU Objective - Vital Signs / Intake & Output Vital Signs (Last 4 hours): Vital Signs Temp Pulse Resp BP Pulse Ox 04/03/17 15:08 117 H 32 H 99/61 L 95 04/03/17 15:00 115 H 28 H 95 04/03/17 14:53 114 H 29 H 94/63 L 95 04/03/17 14:38 109 H 20 77/47 L 97 04/03/17 14:23 110 H 19 77/47 L 98 04/03/17 14:20 98.4 F 111 H 17 94/57 L 04/03/17 14:08 117 H 33 H 94/57 L 95 Intake and Output (Last 8hrs): Intake & Output 04/03/17 04/03/17 04/03/17 06:59 14:59 22:59 Intake Total 460 1060 45 Output Total 350 430 50 Balance 110 630 -5 Weight 148 lb 8 oz 148 lb Intake: Intake, IV Amount 100 0 0 Right Distal Port 100 0 0 Internal Jugular Tube Feeding 360 360 45 Blood Product 700 Apheresis Plts Acda Lr 300 2nd Con Unit [id number] Output: Urine 350 430 50 Urethral (Gusman) 350 430 50 Emesis 0 0 Other: # Bowel Movements 1 0 0 - Medications Active Medications: Active Medications Generic Name Dose Route Start Last Admin Trade Name Freq PRN Reason Stop Dose Admin Albuterol/Ipratropium 3 ml 03/30/17 14:00 04/03/17 14:13 Duoneb 3 Mg/0.5 Mg (3 Ml) Ud INH 3 ml RQ6 [place] Administration Enoxaparin Sodium 20 mg 04/01/17 10:30 04/03/17 11:01 Lovenox SC Not Given DAILY [place] Tigecycline 50 mg/ Sodium 100 mls @ 100 mls/hr 03/30/17 07:00 04/03/17 06:03 Chloride IVPB 100 mls/hr Q12H [place] Administration Insulin Aspart 0 unit 03/28/17 12:00 04/03/17 15:27 Novolog SC 1 unit Q6 [place] Administration Protocol Pantoprazole Sodium 40 mg 03/28/17 09:30 04/03/17 10:00 Protonix Inj IVP 40 mg Q12H [place] Administration Potassium Phos/Sodium Phos 1 pkt 03/30/17 11:45 04/03/17 10:56 Neutra-Phos PO 1 pkt BID [place] Administration - Patient Studies Lab Studies: Microbiology Studies 03/30/17 11:10 Blood Culture - Preliminary Blood-Thru Central Line NO GROWTH AFTER 4 DAYS 03/30/17 11:10 Blood Culture - Preliminary Blood-Thru Central Line NO GROWTH AFTER 4 DAYS Lab Studies 04/03/17 04/03/17 04/03/17 Range/Units 17:47 11:28 06:37 WBC (4.8-10.8) K/uL RBC (3.80-5.20) Mil/uL Hgb (11.0-16.0) g/dL Hct (34.0-47.0) % MCV (81.0-99.0) fL MCH (27.0-31.0) pg MCHC (33.0-37.0) g/dL RDW (11.5-14.5) % Plt Count (130-400) K/uL MPV (7.2-11.7) fL Neut % (Auto) (50.0-75.0) % Lymph % (Auto) (20.0-40.0) % Payette % (Auto) (0.0-10.0) % Eos % (Auto) (0.0-4.0) % Baso % (Auto) (0.0-2.0) % Neut # (1.8-7.0) K/uL Lymph # (1.0-4.3) K/uL Payette # (0.0-0.8) K/uL Eos # (0.0-0.7) K/uL Baso # (0.0-0.2) K/uL Neutrophils % (Manual) (50-75) % Lymphocytes % (Manual) (20-40) % Monocytes % (Manual) Platelet Estimate (NORMAL) Polychromasia Hypochromasia (manual) Anisocytosis (manual) Macrocytosis (manual) Fibrinogen 45 L (200-400) mg/dL Puncture Site pCO2 (35-45) mm/Hg pO2 (80-100) mm/Hg HCO3 (21-28) mmol/L ABG pH (7.35-7.45) ABG Total CO2 (22-28) mmol/L ABG O2 Saturation (95-98) % ABG Base Excess (-2.0-3.0) mmol/L ABG Hemoglobin (11.7-17.4) g/dL ABG Carboxyhemoglobin (0.5-1.5) % POC ABG HHb (Measured) (0.0-5.0) % ABG Methemoglobin (0.0-3.0) % Crescencio Test A-a O2 Difference mm/Hg Respiratory Index Hgb O2 Saturation (95.0-98.0) % Vent Mode Mechanical Rate FiO2 % Tidal Volume PEEP Sodium (132-148) mmol/L Potassium (3.6-5.2) mmol/L Chloride (98-107) mmol/L Carbon Dioxide (22-30) mmol/L Anion Gap (10-20) BUN (7-17) mg/dL Creatinine (0.7-1.2) mg/dL Est GFR ( Amer) Est GFR (Non-Af Amer) POC Glucose (mg/dL) 69 153 H (65-110) mg/dL Random Glucose (65-105) mg/dL Calcium (8.6-10.4) mg/dl Phosphorus (2.5-4.5) mg/dL Magnesium (1.6-2.3) mg/dL Total Bilirubin (0.2-1.3) mg/dL AST (14-36) U/L ALT (9-52) U/L Alkaline Phosphatase (38-126) U/L Total Protein (6.3-8.3) g/dL Albumin (3.5-5.0) g/dL Globulin (2.2-3.9) gm/dL Albumin/Globulin Ratio (1.0-2.1) 04/03/17 04/03/17 04/03/17 Range/Units 06:37 06:37 05:22 WBC 18.7 H (4.8-10.8) K/uL RBC 2.45 L (3.80-5.20) Mil/uL Hgb 8.5 L (11.0-16.0) g/dL Hct 26.4 L (34.0-47.0) % MCV 107.6 H (81.0-99.0) fL MCH 34.9 H (27.0-31.0) pg MCHC 32.4 L (33.0-37.0) g/dL RDW 17.2 H (11.5-14.5) % Plt Count 7 L* D (130-400) K/uL MPV 9.4 (7.2-11.7) fL Neut % (Auto) 91.4 H (50.0-75.0) % Lymph % (Auto) 6.8 L (20.0-40.0) % Payette % (Auto) 1.3 (0.0-10.0) % Eos % (Auto) 0.3 (0.0-4.0) % Baso % (Auto) 0.2 (0.0-2.0) % Neut # 17.1 H (1.8-7.0) K/uL Lymph # 1.3 (1.0-4.3) K/uL Payette # 0.2 (0.0-0.8) K/uL Eos # 0.1 (0.0-0.7) K/uL Baso # 0.0 (0.0-0.2) K/uL Neutrophils % (Manual) 94 H (50-75) % Lymphocytes % (Manual) 6 L (20-40) % Monocytes % (Manual) TEST NOT PERFORMED Platelet Estimate Markedly decreased L (NORMAL) Polychromasia Slight Hypochromasia (manual) Slight Anisocytosis (manual) Slight Macrocytosis (manual) Moderate Fibrinogen (200-400) mg/dL Puncture Site pCO2 (35-45) mm/Hg pO2 (80-100) mm/Hg HCO3 (21-28) mmol/L ABG pH (7.35-7.45) ABG Total CO2 (22-28) mmol/L ABG O2 Saturation (95-98) % ABG Base Excess (-2.0-3.0) mmol/L ABG Hemoglobin (11.7-17.4) g/dL ABG Carboxyhemoglobin (0.5-1.5) % POC ABG HHb (Measured) (0.0-5.0) % ABG Methemoglobin (0.0-3.0) % Crescencio Test A-a O2 Difference mm/Hg Respiratory Index Hgb O2 Saturation (95.0-98.0) % Vent Mode Mechanical Rate FiO2 % Tidal Volume PEEP Sodium 140 (132-148) mmol/L Potassium 4.0 (3.6-5.2) mmol/L Chloride 102 (98-107) mmol/L Carbon Dioxide 25 (22-30) mmol/L Anion Gap 17 (10-20) BUN 50 H (7-17) mg/dL Creatinine 1.1 (0.7-1.2) mg/dL Est GFR ( Amer) > 60 Est GFR (Non-Af Amer) 51 POC Glucose (mg/dL) 194 H (65-110) mg/dL Random Glucose 156 H (65-105) mg/dL Calcium 8.3 L (8.6-10.4) mg/dl Phosphorus 2.7 (2.5-4.5) mg/dL Magnesium 1.6 (1.6-2.3) mg/dL Total Bilirubin 5.4 H (0.2-1.3) mg/dL AST 34 (14-36) U/L ALT 58 H (9-52) U/L Alkaline Phosphatase 87 (38-126) U/L Total Protein 4.4 L (6.3-8.3) g/dL Albumin 2.4 L (3.5-5.0) g/dL Globulin 2.0 L (2.2-3.9) gm/dL Albumin/Globulin Ratio 1.2 (1.0-2.1) 04/03/17 04/02/17 Range/Units 04:30 23:30 WBC (4.8-10.8) K/uL RBC (3.80-5.20) Mil/uL Hgb (11.0-16.0) g/dL Hct (34.0-47.0) % MCV (81.0-99.0) fL MCH (27.0-31.0) pg MCHC (33.0-37.0) g/dL RDW (11.5-14.5) % Plt Count (130-400) K/uL MPV (7.2-11.7) fL Neut % (Auto) (50.0-75.0) % Lymph % (Auto) (20.0-40.0) % Payette % (Auto) (0.0-10.0) % Eos % (Auto) (0.0-4.0) % Baso % (Auto) (0.0-2.0) % Neut # (1.8-7.0) K/uL Lymph # (1.0-4.3) K/uL Payette # (0.0-0.8) K/uL Eos # (0.0-0.7) K/uL Baso # (0.0-0.2) K/uL Neutrophils % (Manual) (50-75) % Lymphocytes % (Manual) (20-40) % Monocytes % (Manual) Platelet Estimate (NORMAL) Polychromasia Hypochromasia (manual) Anisocytosis (manual) Macrocytosis (manual) Fibrinogen (200-400) mg/dL Puncture Site Rb pCO2 36 (35-45) mm/Hg pO2 69 L (80-100) mm/Hg HCO3 25.2 (21-28) mmol/L ABG pH 7.44 (7.35-7.45) ABG Total CO2 25.6 (22-28) mmol/L ABG O2 Saturation 97.9 (95-98) % ABG Base Excess 0.4 (-2.0-3.0) mmol/L ABG Hemoglobin 8.8 L (11.7-17.4) g/dL ABG Carboxyhemoglobin 3.1 H (0.5-1.5) % POC ABG HHb (Measured) 2.0 (0.0-5.0) % ABG Methemoglobin 0.5 (0.0-3.0) % Crescencio Test Na A-a O2 Difference 171.0 mm/Hg Respiratory Index 2.5 Hgb O2 Saturation 94.5 L (95.0-98.0) % Vent Mode Prvc Mechanical Rate 16 FiO2 40.0 % Tidal Volume 400 PEEP 5 Sodium (132-148) mmol/L Potassium (3.6-5.2) mmol/L Chloride (98-107) mmol/L Carbon Dioxide (22-30) mmol/L Anion Gap (10-20) BUN (7-17) mg/dL Creatinine (0.7-1.2) mg/dL Est GFR ( Amer) Est GFR (Non-Af Amer) POC Glucose (mg/dL) 191 H (65-110) mg/dL Random Glucose (65-105) mg/dL Calcium (8.6-10.4) mg/dl Phosphorus (2.5-4.5) mg/dL Magnesium (1.6-2.3) mg/dL Total Bilirubin (0.2-1.3) mg/dL AST (14-36) U/L ALT (9-52) U/L Alkaline Phosphatase (38-126) U/L Total Protein (6.3-8.3) g/dL Albumin (3.5-5.0) g/dL Globulin (2.2-3.9) gm/dL Albumin/Globulin Ratio (1.0-2.1) Laboratory Results - last 24 hr 04/02/17 04/03/17 04/03/17 23:30 04:30 05:22 WBC RBC Hgb Hct MCV MCH MCHC RDW Plt Count MPV Neut % (Auto) Lymph % (Auto) Payette % (Auto) Eos % (Auto) Baso % (Auto) Neut # Lymph # Payette # Eos # Baso # Neutrophils % (Manual) Lymphocytes % (Manual) Monocytes % (Manual) Platelet Estimate Polychromasia Hypochromasia (manual) Anisocytosis (manual) Macrocytosis (manual) Fibrinogen Puncture Site Rb pCO2 36 pO2 69 L HCO3 25.2 ABG pH 7.44 ABG Total CO2 25.6 ABG O2 Saturation 97.9 ABG Base Excess 0.4 ABG Hemoglobin 8.8 L ABG Carboxyhemoglobin 3.1 H POC ABG HHb (Measured) 2.0 ABG Methemoglobin 0.5 Crescencio Test Na A-a O2 Difference 171.0 Respiratory Index 2.5 Hgb O2 Saturation 94.5 L Vent Mode Prvc Mechanical Rate 16 FiO2 40.0 Tidal Volume 400 PEEP 5 Sodium Potassium Chloride Carbon Dioxide Anion Gap BUN Creatinine Est GFR ( Amer) Est GFR (Non-Af Amer) POC Glucose (mg/dL) 191 H 194 H Random Glucose Calcium Phosphorus Magnesium Total Bilirubin AST ALT Alkaline Phosphatase Total Protein Albumin Globulin Albumin/Globulin Ratio 04/03/17 04/03/17 04/03/17 06:37 06:37 06:37 WBC 18.7 H RBC 2.45 L Hgb 8.5 L Hct 26.4 L MCV 107.6 H MCH 34.9 H MCHC 32.4 L RDW 17.2 H Plt Count 7 L* D MPV 9.4 Neut % (Auto) 91.4 H Lymph % (Auto) 6.8 L Payette % (Auto) 1.3 Eos % (Auto) 0.3 Baso % (Auto) 0.2 Neut # 17.1 H Lymph # 1.3 Payette # 0.2 Eos # 0.1 Baso # 0.0 Neutrophils % (Manual) 94 H Lymphocytes % (Manual) 6 L Monocytes % (Manual) TEST NOT PERFORMED Platelet Estimate Markedly decreased L Polychromasia Slight Hypochromasia (manual) Slight Anisocytosis (manual) Slight Macrocytosis (manual) Moderate Fibrinogen 45 L Puncture Site pCO2 pO2 HCO3 ABG pH ABG Total CO2 ABG O2 Saturation ABG Base Excess ABG Hemoglobin ABG Carboxyhemoglobin POC ABG HHb (Measured) ABG Methemoglobin Crescencio Test A-a O2 Difference Respiratory Index Hgb O2 Saturation Vent Mode Mechanical Rate FiO2 Tidal Volume PEEP Sodium 140 Potassium 4.0 Chloride 102 Carbon Dioxide 25 Anion Gap 17 BUN 50 H Creatinine 1.1 Est GFR ( Amer) > 60 Est GFR (Non-Af Amer) 51 POC Glucose (mg/dL) Random Glucose 156 H Calcium 8.3 L Phosphorus 2.7 Magnesium 1.6 Total Bilirubin 5.4 H AST 34 ALT 58 H Alkaline Phosphatase 87 Total Protein 4.4 L Albumin 2.4 L Globulin 2.0 L Albumin/Globulin Ratio 1.2 04/03/17 04/03/17 11:28 17:47 WBC RBC Hgb Hct MCV MCH MCHC RDW Plt Count MPV Neut % (Auto) Lymph % (Auto) [place] % (Auto) Eos % (Auto) Baso % (Auto) Neut # Lymph # [place] # Eos # Baso # Neutrophils % (Manual) Lymphocytes % (Manual) Monocytes % (Manual) Platelet Estimate Polychromasia Hypochromasia (manual) Anisocytosis (manual) Macrocytosis (manual) Fibrinogen Puncture Site pCO2 pO2 HCO3 ABG pH ABG Total CO2 ABG O2 Saturation ABG Base Excess ABG Hemoglobin ABG Carboxyhemoglobin POC ABG HHb (Measured) ABG Methemoglobin Crescencio Test A-a O2 Difference Respiratory Index Hgb O2 Saturation Vent Mode Mechanical Rate FiO2 Tidal Volume PEEP Sodium Potassium Chloride Carbon Dioxide Anion Gap BUN Creatinine Est GFR ( Amer) Est GFR (Non-Af Amer) POC Glucose (mg/dL) 153 H 69 Random Glucose Calcium Phosphorus Magnesium Total Bilirubin AST ALT Alkaline Phosphatase Total Protein Albumin Globulin Albumin/Globulin Ratio Critical Care Progress Note - Nutrition Nutrition: Nutrition Category Date Time Status Heart Healthy Diet [DIET] Diets 03/17/17 Dinner Active Attending/Attestation - Attestation I have personally seen and examined this patient.: Yes I have fully participated in the care of the patient.: Yes I have reviewed all pertinent clinical information: Yes Notes (Text): 04/03/17 18:06 patient seen and examined in the intensive Care unit. Case discussed with house staff in the morning rounds. Remains intubated on ventilatory support FiO2 40% with a PEEP of 5 Does not respond to vocal commands Transfuse platelets and cryoprecipitate Consider CT scan of head Continue antibiotics Continue present treatment
--- NOTE | 2017-04-03 15:41 | CP.PCM.PN ---
Subjective - Date & Time of Evaluation Date of Evaluation: 04/03/17 Time of Evaluation: 15:37 - Subjective Subjective: Follow up Nephrology Consultation: Assessment: critical acute kidney injury with oliguria, lactic acidosis, severe thrombocytopenia, septic shock, ARDS: improved respi failure with bilateral pneumonia Hyponatremia likely due to cirrhosis: improved Hypomagnesemia, Hypokalemia, Anemia diabetes Mellitus hypertension, ex smoker, chronic etoh abuse and chronic pancreatitis UTI, back pain Plan no acute need for renal replacement therapy at this time agree with diuretics with IV lasix. supplement electrolytes. Monitor Input/Output, daily weights and renal function with basic metabolic panel Glycemic control Further work up/management as per primary team dose meds for improved GFR. Avoid fleets enema/magnesium based laxatives. Avoid nephrotoxins/NSAIDs/ iodinated contrast (unless needed emergently) Further work up for as per primary team Thanks for allowing me to participate in care of your patient. Please call if any Qs. Dr Jaya Flynn Office: [phone] Chief Complaint; unable Reason for consult: hyponatremia, SARIKA HPI: Pt is a 61 y/o F with hx of diabetes Mellitus hypertension, ex smoker, chronic etoh abuse and chronic pancreatitis initially presented with complaints of dysuria and being treated with antibiotics for UTI. she was getting D5/0.45% saline and noted to have decreased serum Na to 124 hence renal consult requested pt intubated and off pressors. BP better/stable. Physical Examination: General Appearance: ill appearing, intubated orally Vitals reviewed and noted as below Head; Atraumatic, normocephalic ENT: no ulcers no thrush. Tongue is midline/dry. Oropharynx: no rash or ulcers. Neck; supple no lymphadenopathy, no thyromegaly or bruit Lungs: increase respiratory rate/effort. Breath sounds bilateral with rales Heart: Normal rate. s1s2 normal. No rub or gallop. Extremities: 2+ edema. No varicose veins Neurological: Patient is non communicative Skin: Warm and dry. Normal turgor. No rash. Palpitation: Normal elasticity for age Abdomen: Abdomen is soft. Bowel sounds +. There is no abdominal tenderness, no guarding/rigidity no organomegaly has ascites Psych: unable MSK: no joint tenderness or swelling. Digits and nails normal, no deformity : kidney or bladder not palpable. has duong + Labs/imaging/EKG reviewed. Past medical history, past surgical history, family history, social history, allergy reviewed and noted as below Family hx: no hx of CKD. Rest non-contributory recent echo: normal LVEF CT abdomen: chronic pancreatitis, liver disease, increased echogenic kidneys. has compression fractures in vertebra Objective - Vital Signs/Intake and Output Vital Signs (last 24 hours): Temp Pulse Resp BP Pulse Ox 98.4 F 117 H 32 H 99/61 L 95 04/03/17 14:20 04/03/17 15:08 04/03/17 15:08 04/03/17 15:08 04/03/17 15:08 Intake and Output: 04/03/17 04/03/17 06:59 18:59 Intake Total 595 1105 Output Total 605 480 Balance -10 625 - Medications Medications: Current Medications Albuterol/Ipratropium (Duoneb 3 Mg/0.5 Mg (3 Ml) Ud) 3 ml INH RQ6 [facility] Last Admin: 04/03/17 14:13 Dose: 3 ml Enoxaparin Sodium (Lovenox) 20 mg SC DAILY [facility] Last Admin: 04/03/17 11:01 Dose: Not Given Tigecycline 50 mg/ Sodium (Chloride) 100 mls @ 100 mls/hr IVPB Q12H [facility] Last Admin: 04/03/17 06:03 Dose: 100 mls/hr Insulin Aspart (Novolog) 0 unit SC Q6 [facility] PRN Reason: Protocol Last Admin: 04/03/17 15:27 Dose: 1 unit Pantoprazole Sodium (Protonix Inj) 40 mg IVP Q12H [facility] Last Admin: 04/03/17 10:00 Dose: 40 mg Potassium Phos/Sodium Phos (Neutra-Phos) 1 pkt PO BID [facility] Last Admin: 04/03/17 10:56 Dose: 1 pkt - Labs Labs: 04/03/17 06:37 04/03/17 06:37 PT 25.0 SECONDS (9.7-12.2) H 03/30/17 06:18 INR 2.2 03/30/17 06:18 APTT 67 SECONDS (21-34) H D 03/30/17 06:18
[2017-04-03] MEDS ORDERED: Dextrose 50% SYRINGE Inj (50 ml) IV STA (17:56)
--- NOTE | 2017-04-03 18:33 | CP.PCM.PN ---
Subjective - Date & Time of Evaluation Date of Evaluation: 04/03/17 Time of Evaluation: 14:00 - Subjective Subjective: Vented Objective - Vital Signs/Intake and Output Vital Signs (last 24 hours): Temp Pulse Resp BP Pulse Ox 98.4 F 117 H 32 H 99/61 L 95 04/03/17 14:20 04/03/17 15:08 04/03/17 15:08 04/03/17 15:08 04/03/17 15:08 Intake and Output: 04/03/17 04/03/17 06:59 18:59 Intake Total 595 1105 Output Total 605 480 Balance -10 625 - Medications Medications: Current Medications Albuterol/Ipratropium (Duoneb 3 Mg/0.5 Mg (3 Ml) Ud) 3 ml INH RQ6 [facility] Last Admin: 04/03/17 14:13 Dose: 3 ml Enoxaparin Sodium (Lovenox) 20 mg SC DAILY [facility] Last Admin: 04/03/17 11:01 Dose: Not Given Tigecycline 50 mg/ Sodium (Chloride) 100 mls @ 100 mls/hr IVPB Q12H [facility] Last Admin: 04/03/17 18:15 Dose: 100 mls/hr Insulin Aspart (Novolog) 0 unit SC Q6 [facility] PRN Reason: Protocol Last Admin: 04/03/17 18:13 Dose: Not Given Pantoprazole Sodium (Protonix Inj) 40 mg IVP Q12H [facility] Last Admin: 04/03/17 10:00 Dose: 40 mg Potassium Phos/Sodium Phos (Neutra-Phos) 1 pkt PO BID [facility] Last Admin: 04/03/17 18:13 Dose: 1 pkt - Labs Labs: 04/03/17 06:37 04/03/17 06:37 PT 25.0 SECONDS (9.7-12.2) H 03/30/17 06:18 INR 2.2 03/30/17 06:18 APTT 67 SECONDS (21-34) H D 03/30/17 06:18 - Head Exam Head Exam: ATRAUMATIC - Eye Exam Eye Exam: Normal appearance - ENT Exam ENT Exam: Mucous Membranes Dry - Respiratory Exam Respiratory Exam: NORMAL BREATHING PATTERN - Cardiovascular Exam Cardiovascular Exam: +S1, +S2 - GI/Abdominal Exam GI & Abdominal Exam: Normal Bowel Sounds Assessment and Plan (1) DIC (disseminated intravascular coagulation) Assessment & Plan: severe, sepsis, ARDS for cryopercipitate and plt transfusion goal fibrinogen above 100 Status: Acute (2) Thrombocytopenia Assessment & Plan: secondary to DIC and sepsis transfusion support; goal plt > 10,000 Status: Acute (3) Coagulopathy Assessment & Plan: DIC, sepsis likely nutritional component Status: Acute (4) Anemia Assessment & Plan: microangiopathic hemolysis from DIC, chronic disease from sepsis Status: Acute
[2017-04-04] MEDS: (Novolog) Insulin Aspart, Recombinant 100 u/ml 10 ml vial SC SCH ×5 (00:31→23:57)
[2017-04-04] MEDS: Albuterol-Ipratrop 3 mg / 0.5 (3 ml) UD INH SCH ×4 (01:31→19:35)
[2017-04-04 05:34] LABS: ABG MECHANICAL RATE 16; ARTERIAL BLOOD GAS MODE PRVC; ARTERIAL BLOOD HGB O2 SAT 97.5 % (95.0-98.0); ATERIAL BLOOD GAS PEEP 5; CARBOXYHEMOGLOBIN 2.4 % (0.5-1.5); DRAW SITE RB; HHB -0.7 % (0.0-5.0); METHEMOGLOBIN 0.8 % (0.0-3.0)
[2017-04-04 06:23] LABS: BASO # 0.1 K/uL (0.0-0.2); BASO % 0.3 % (0.0-2.0); EOS # 0.2 K/uL (0.0-0.7); EOS % 0.7 % (0.0-4.0); HEMATOCRIT 24.1 % (34.0-47.0); LYMPH # 2.1 K/uL (1.0-4.3); LYMPH % 8.5 % (20.0-40.0); MEAN CELL VOLUME 107.3 fL (81.0-99.0); MEAN CORPUSCULAR HEMOGLOBIN 35.5 pg (27.0-31.0); MEAN CORPUSCULAR HGB CONC 33.1 g/dL (33.0-37.0); MEAN PLATELET VOLUME 8.8 fL (7.2-11.7); MONO # 0.1 K/uL (0.0-0.8); MONO % 0.6 % (0.0-10.0); RED CELL DISTRIBUTION WIDTH 17.3 % (11.5-14.5); WHITE BLOOD COUNT 24.5 K/uL (4.8-10.8)
[2017-04-04 06:28] LABS: PLATELET COUNT 9 K/uL (130-400)
[2017-04-04 06:29] LABS: ALB/GLOB RATIO 0.8 (1.0-2.1); CALCIUM 8.4 mg/dl (8.6-10.4); MAGNESIUM 1.8 mg/dL (1.6-2.3); PHOSPHOROUS 2.9 mg/dL (2.5-4.5); POTASSIUM 4.1 mmol/L (3.6-5.2); TOTAL PROTEIN 5.3 g/dL (6.3-8.3)
--- NOTE | 2017-04-04 08:35 | RAD ---
PROCEDURE: CHEST RADIOGRAPH, 1 VIEW HISTORY: vent COMPARISON: Portable chest 04/03/2017. FINDINGS: Endotracheal and nasogastric tubes as well as right central venous line are unchanged in position. LUNGS: Limited patchy densities remain at the bilateral lung bases reflective of probable atelectasis though an element of pneumonia is not completely excluded, right greater than left base. PLEURA: No pneumothorax or pleural fluid seen. CARDIOVASCULAR: Normal. OSSEOUS STRUCTURES: No significant abnormalities. VISUALIZED UPPER ABDOMEN: Gas is seen within the stomach and bowel in the upper abdomen once again. OTHER FINDINGS: None. IMPRESSION: Stable limited bilateral basilar airspace disease, right greater than left with no pneumothorax or pleural effusion identified bilaterally in the interval.
--- NOTE | 2017-04-04 08:44 | CP.CCUPN ---
<Mic Sanches - Last Filed: 04/04/17 11:13> CCU Subjective - Physician Review Subjective (Free Text): PGY1 ICU Progress Note for Dr. Atkinson Patient seen and examined at bedside this morning. Patient intubated. Patient is not currently on any sedation. ROS unobtainable. CCU Objective - Vital Signs / Intake & Output Vital Signs (Last 4 hours): Vital Signs Pulse Resp BP Pulse Ox 04/04/17 07:00 114 H 33 H 99 04/04/17 06:59 113 H 34 H 100/62 99 04/04/17 06:58 113 H 34 H 102/62 99 04/04/17 06:00 83/50 L 04/04/17 05:59 110 H 29 H 100 04/04/17 05:00 116 H 34 H 98 04/04/17 04:59 116 H 34 H 91/56 L 98 Intake and Output (Last 8hrs): Intake & Output 04/03/17 04/04/17 04/04/17 22:59 06:59 14:59 Intake Total 300 505 Output Total 110 175 Balance 190 330 Weight 147 lb 6.4 oz Intake: Intake, IV Amount 0 100 Right Distal Port 0 100 Internal Jugular Tube Feeding 180 405 Blood Product 120 Output: Urine 110 175 Urethral ([place]us[place]) 110 175 Emesis 0 Other: # Bowel Movements 1 - Physical Exam Head: Positive for: Atraumatic, Normocephalic Pupils: Positive for: PERRL Extroacular Muscles: Positive for: EOMI Mouth: Positive for: Moist Mucous Membranes, Other (intubated) Neck: Positive for: Normal Range of Motion Respiratory/Chest: Positive for: Rales, Rhonchi, Other (restarted on levophed drip due to hypotension). Negative for: Accessory Muscle Use Cardiovascular: Positive for: Regular Rate and Rhythm Abdomen: Positive for: Distention, Normal Bowel Sounds, Other (tympanic to percussion. healing petechiae rash in center of abdomen ). Negative for: Tenderness Upper Extremity: Positive for: Other (multiple areas of ecchymosis) Lower Extremity: Positive for: Edema, Other (ecchymosis) Neurological: Positive for: Other (intubated. Patient moves spontaneously but does not open her eyes to voice commands or respond to pain. ) Skin: Positive for: Warm, Dry Psychiatric: Positive for: Other (intubated) - Medications Active Medications: Active Medications Generic Name Dose Route Start Last Admin Trade Name Augustq PRN Reason Stop Dose Admin Albuterol/Ipratropium 3 ml 03/30/17 14:00 04/04/17 08:02 Duoneb 3 Mg/0.5 Mg (3 Ml) Ud INH 3 ml RQ6 [place] Administration Enoxaparin Sodium 20 mg 04/01/17 10:30 04/03/17 11:01 Lovenox SC Not Given DAILY [place] Tigecycline 50 mg/ Sodium 100 mls @ 100 mls/hr 03/30/17 07:00 04/04/17 06:01 Chloride IVPB 100 mls/hr Q12H [place] Administration Insulin Aspart 0 unit 03/28/17 12:00 04/04/17 05:32 Novolog SC Not Given Q6 [place] Protocol Pantoprazole Sodium 40 mg 03/28/17 09:30 04/03/17 21:46 Protonix Inj IVP 40 mg Q12H [place] Administration Potassium Phos/Sodium Phos 1 pkt 03/30/17 11:45 04/03/17 18:13 Neutra-Phos PO 1 pkt BID [place] Administration - Patient Studies Lab Studies: Microbiology Studies 03/30/17 11:10 Blood Culture - Preliminary Blood-Thru Central Line NO GROWTH AFTER 4 DAYS 03/30/17 11:10 Blood Culture - Preliminary Blood-Thru Central Line NO GROWTH AFTER 4 DAYS Lab Studies 04/04/17 04/04/17 04/04/17 Range/Units 07:33 06:07 06:07 WBC 24.5 H (4.8-10.8) K/uL RBC 2.24 L (3.80-5.20) Mil/uL Hgb 8.0 L (11.0-16.0) g/dL Hct 24.1 L (34.0-47.0) % MCV 107.3 H (81.0-99.0) fL MCH 35.5 H (27.0-31.0) pg MCHC 33.1 (33.0-37.0) g/dL RDW 17.3 H (11.5-14.5) % Plt Count 9 L* (130-400) K/uL MPV 8.8 (7.2-11.7) fL Neut % (Auto) 89.9 H (50.0-75.0) % Lymph % (Auto) 8.5 L (20.0-40.0) % [place] % (Auto) 0.6 (0.0-10.0) % Eos % (Auto) 0.7 (0.0-4.0) % Baso % (Auto) 0.3 (0.0-2.0) % Neut # 22.0 H (1.8-7.0) K/uL Lymph # 2.1 (1.0-4.3) K/uL [place] # 0.1 (0.0-0.8) K/uL Eos # 0.2 (0.0-0.7) K/uL Baso # 0.1 (0.0-0.2) K/uL Neutrophils % (Manual) (50-75) % Lymphocytes % (Manual) (20-40) % Monocytes % (Manual) Platelet Estimate (NORMAL) Polychromasia Hypochromasia (manual) Anisocytosis (manual) Macrocytosis (manual) Fibrinogen 149 L D (200-400) mg/dL Puncture Site pCO2 (35-45) mm/Hg pO2 (80-100) mm/Hg HCO3 (21-28) mmol/L ABG pH (7.35-7.45) ABG Total CO2 (22-28) mmol/L ABG O2 Saturation (95-98) % ABG Base Excess (-2.0-3.0) mmol/L ABG Hemoglobin (11.7-17.4) g/dL ABG Carboxyhemoglobin (0.5-1.5) % POC ABG HHb (Measured) (0.0-5.0) % ABG Methemoglobin (0.0-3.0) % Crescencio Test A-a O2 Difference mm/Hg Respiratory Index Hgb O2 Saturation (95.0-98.0) % Vent Mode Mechanical Rate FiO2 % Tidal Volume PEEP Sodium 141 (132-148) mmol/L Potassium 4.1 (3.6-5.2) mmol/L Chloride 104 (98-107) mmol/L Carbon Dioxide 23 (22-30) mmol/L Anion Gap 18 (10-20) BUN 59 H (7-17) mg/dL Creatinine 1.4 H (0.7-1.2) mg/dL Est GFR ( Amer) 46 Est GFR (Non-Af Amer) 38 POC Glucose (mg/dL) (65-110) mg/dL Random Glucose 123 H (65-105) mg/dL Calcium 8.4 L (8.6-10.4) mg/dl Phosphorus 2.9 (2.5-4.5) mg/dL Magnesium 1.8 (1.6-2.3) mg/dL Total Bilirubin 8.2 H (0.2-1.3) mg/dL AST 45 H D (14-36) U/L ALT 62 H (9-52) U/L Alkaline Phosphatase 86 (38-126) U/L Total Protein 5.3 L (6.3-8.3) g/dL Albumin 2.3 L (3.5-5.0) g/dL Globulin 3.0 (2.2-3.9) gm/dL Albumin/Globulin Ratio 0.8 L (1.0-2.1) 04/04/17 04/04/17 04/03/17 Range/Units 05:24 05:12 23:42 WBC (4.8-10.8) K/uL RBC (3.80-5.20) Mil/uL Hgb (11.0-16.0) g/dL Hct (34.0-47.0) % MCV (81.0-99.0) fL MCH (27.0-31.0) pg MCHC (33.0-37.0) g/dL RDW (11.5-14.5) % Plt Count (130-400) K/uL MPV (7.2-11.7) fL Neut % (Auto) (50.0-75.0) % Lymph % (Auto) (20.0-40.0) % [place] % (Auto) (0.0-10.0) % Eos % (Auto) (0.0-4.0) % Baso % (Auto) (0.0-2.0) % Neut # (1.8-7.0) K/uL Lymph # (1.0-4.3) K/uL [place] # (0.0-0.8) K/uL Eos # (0.0-0.7) K/uL Baso # (0.0-0.2) K/uL Neutrophils % (Manual) (50-75) % Lymphocytes % (Manual) (20-40) % Monocytes % (Manual) Platelet Estimate (NORMAL) Polychromasia Hypochromasia (manual) Anisocytosis (manual) Macrocytosis (manual) Fibrinogen (200-400) mg/dL Puncture Site Rb pCO2 27 L (35-45) mm/Hg pO2 99 (80-100) mm/Hg HCO3 22.8 (21-28) mmol/L ABG pH 7.48 H (7.35-7.45) ABG Total CO2 20.9 L (22-28) mmol/L ABG O2 Saturation 100.7 H (95-98) % ABG Base Excess -2.8 L (-2.0-3.0) mmol/L ABG Hemoglobin 7.8 L (11.7-17.4) g/dL ABG Carboxyhemoglobin 2.4 H (0.5-1.5) % POC ABG HHb (Measured) -0.7 L (0.0-5.0) % ABG Methemoglobin 0.8 (0.0-3.0) % Crescencio Test Na A-a O2 Difference 152.0 mm/Hg Respiratory Index 1.5 Hgb O2 Saturation 97.5 (95.0-98.0) % Vent Mode Prvc Mechanical Rate 16 FiO2 40.0 % Tidal Volume 400 PEEP 5 Sodium (132-148) mmol/L Potassium (3.6-5.2) mmol/L Chloride (98-107) mmol/L Carbon Dioxide (22-30) mmol/L Anion Gap (10-20) BUN (7-17) mg/dL Creatinine (0.7-1.2) mg/dL Est GFR ( Amer) Est GFR (Non-Af Amer) POC Glucose (mg/dL) 143 H 151 H (65-110) mg/dL Random Glucose (65-105) mg/dL Calcium (8.6-10.4) mg/dl Phosphorus (2.5-4.5) mg/dL Magnesium (1.6-2.3) mg/dL Total Bilirubin (0.2-1.3) mg/dL AST (14-36) U/L ALT (9-52) U/L Alkaline Phosphatase (38-126) U/L Total Protein (6.3-8.3) g/dL Albumin (3.5-5.0) g/dL Globulin (2.2-3.9) gm/dL Albumin/Globulin Ratio (1.0-2.1) 04/03/17 04/03/17 04/03/17 Range/Units 17:47 11:28 06:37 WBC (4.8-10.8) K/uL RBC (3.80-5.20) Mil/uL Hgb (11.0-16.0) g/dL Hct (34.0-47.0) % MCV (81.0-99.0) fL MCH (27.0-31.0) pg MCHC (33.0-37.0) g/dL RDW (11.5-14.5) % Plt Count (130-400) K/uL MPV (7.2-11.7) fL Neut % (Auto) (50.0-75.0) % Lymph % (Auto) (20.0-40.0) % [place] % (Auto) (0.0-10.0) % Eos % (Auto) (0.0-4.0) % Baso % (Auto) (0.0-2.0) % Neut # (1.8-7.0) K/uL Lymph # (1.0-4.3) K/uL [place] # (0.0-0.8) K/uL Eos # (0.0-0.7) K/uL Baso # (0.0-0.2) K/uL Neutrophils % (Manual) 94 H (50-75) % Lymphocytes % (Manual) 6 L (20-40) % Monocytes % (Manual) TEST NOT PERFORMED Platelet Estimate Markedly decreased L (NORMAL) Polychromasia Slight Hypochromasia (manual) Slight Anisocytosis (manual) Slight Macrocytosis (manual) Moderate Fibrinogen (200-400) mg/dL Puncture Site pCO2 (35-45) mm/Hg pO2 (80-100) mm/Hg HCO3 (21-28) mmol/L ABG pH (7.35-7.45) ABG Total CO2 (22-28) mmol/L ABG O2 Saturation (95-98) % ABG Base Excess (-2.0-3.0) mmol/L ABG Hemoglobin (11.7-17.4) g/dL ABG Carboxyhemoglobin (0.5-1.5) % POC ABG HHb (Measured) (0.0-5.0) % ABG Methemoglobin (0.0-3.0) % Crescencio Test A-a O2 Difference mm/Hg Respiratory Index Hgb O2 Saturation (95.0-98.0) % Vent Mode Mechanical Rate FiO2 % Tidal Volume PEEP Sodium (132-148) mmol/L Potassium (3.6-5.2) mmol/L Chloride (98-107) mmol/L Carbon Dioxide (22-30) mmol/L Anion Gap (10-20) BUN (7-17) mg/dL Creatinine (0.7-1.2) mg/dL Est GFR ( Amer) Est GFR (Non-Af Amer) POC Glucose (mg/dL) 69 153 H (65-110) mg/dL Random Glucose (65-105) mg/dL Calcium (8.6-10.4) mg/dl Phosphorus (2.5-4.5) mg/dL Magnesium (1.6-2.3) mg/dL Total Bilirubin (0.2-1.3) mg/dL AST (14-36) U/L ALT (9-52) U/L Alkaline Phosphatase (38-126) U/L Total Protein (6.3-8.3) g/dL Albumin (3.5-5.0) g/dL Globulin (2.2-3.9) gm/dL Albumin/Globulin Ratio (1.0-2.1) Laboratory Results - last 24 hr 04/03/17 04/03/17 04/03/17 06:37 11:28 17:47 WBC RBC Hgb Hct MCV MCH MCHC RDW Plt Count MPV Neut % (Auto) Lymph % (Auto) [place] % (Auto) Eos % (Auto) Baso % (Auto) Neut # Lymph # [place] # Eos # Baso # Neutrophils % (Manual) 94 H Lymphocytes % (Manual) 6 L Monocytes % (Manual) TEST NOT PERFORMED Platelet Estimate Markedly decreased L Polychromasia Slight Hypochromasia (manual) Slight Anisocytosis (manual) Slight Macrocytosis (manual) Moderate Fibrinogen Puncture Site pCO2 pO2 HCO3 ABG pH ABG Total CO2 ABG O2 Saturation ABG Base Excess ABG Hemoglobin ABG Carboxyhemoglobin POC ABG HHb (Measured) ABG Methemoglobin Crescencio Test A-a O2 Difference Respiratory Index Hgb O2 Saturation Vent Mode Mechanical Rate FiO2 Tidal Volume PEEP Sodium Potassium Chloride Carbon Dioxide Anion Gap BUN Creatinine Est GFR ( Amer) Est GFR (Non-Af Amer) POC Glucose (mg/dL) 153 H 69 Random Glucose Calcium Phosphorus Magnesium Total Bilirubin AST ALT Alkaline Phosphatase Total Protein Albumin Globulin Albumin/Globulin Ratio 04/03/17 04/04/17 04/04/17 23:42 05:12 05:24 WBC RBC Hgb Hct MCV MCH MCHC RDW Plt Count MPV Neut % (Auto) Lymph % (Auto) [place] % (Auto) Eos % (Auto) Baso % (Auto) Neut # Lymph # [place] # Eos # Baso # Neutrophils % (Manual) Lymphocytes % (Manual) Monocytes % (Manual) Platelet Estimate Polychromasia Hypochromasia (manual) Anisocytosis (manual) Macrocytosis (manual) Fibrinogen Puncture Site Rb pCO2 27 L pO2 99 HCO3 22.8 ABG pH 7.48 H ABG Total CO2 20.9 L ABG O2 Saturation 100.7 H ABG Base Excess -2.8 L ABG Hemoglobin 7.8 L ABG Carboxyhemoglobin 2.4 H POC ABG HHb (Measured) -0.7 L ABG Methemoglobin 0.8 Crescencio Test Na A-a O2 Difference 152.0 Respiratory Index 1.5 Hgb O2 Saturation 97.5 Vent Mode Prvc Mechanical Rate 16 FiO2 40.0 Tidal Volume 400 PEEP 5 Sodium Potassium Chloride Carbon Dioxide Anion Gap BUN Creatinine Est GFR ( Amer) Est GFR (Non-Af Amer) POC Glucose (mg/dL) 151 H 143 H Random Glucose Calcium Phosphorus Magnesium Total Bilirubin AST ALT Alkaline Phosphatase Total Protein Albumin Globulin Albumin/Globulin Ratio 04/04/17 04/04/17 04/04/17 06:07 06:07 07:33 WBC 24.5 H RBC 2.24 L Hgb 8.0 L Hct 24.1 L MCV 107.3 H MCH 35.5 H MCHC 33.1 RDW 17.3 H Plt Count 9 L* MPV 8.8 Neut % (Auto) 89.9 H Lymph % (Auto) 8.5 L [place] % (Auto) 0.6 Eos % (Auto) 0.7 Baso % (Auto) 0.3 Neut # 22.0 H Lymph # 2.1 [place] # 0.1 Eos # 0.2 Baso # 0.1 Neutrophils % (Manual) Lymphocytes % (Manual) Monocytes % (Manual) Platelet Estimate Polychromasia Hypochromasia (manual) Anisocytosis (manual) Macrocytosis (manual) Fibrinogen 149 L D Puncture Site pCO2 pO2 HCO3 ABG pH ABG Total CO2 ABG O2 Saturation ABG Base Excess ABG Hemoglobin ABG Carboxyhemoglobin POC ABG HHb (Measured) ABG Methemoglobin Crescencio Test A-a O2 Difference Respiratory Index Hgb O2 Saturation Vent Mode Mechanical Rate FiO2 Tidal Volume PEEP Sodium 141 Potassium 4.1 Chloride 104 Carbon Dioxide 23 Anion Gap 18 BUN 59 H Creatinine 1.4 H Est GFR ( Amer) 46 Est GFR (Non-Af Amer) 38 POC Glucose (mg/dL) Random Glucose 123 H Calcium 8.4 L Phosphorus 2.9 Magnesium 1.8 Total Bilirubin 8.2 H AST 45 H D ALT 62 H Alkaline Phosphatase 86 Total Protein 5.3 L Albumin 2.3 L Globulin 3.0 Albumin/Globulin Ratio 0.8 L Fingerstick Blood Sugar Results: 153 Review of Systems - Review of Systems Systems not reviewed;Unavailable: Intubated Critical Care Progress Note - Nutrition Nutrition: Nutrition Category Date Time Status Heart Healthy Diet [DIET] Diets 03/17/17 Dinner Active Assessment/Plan - Assessment and Plan (Free Text) Assessment: Patient is a 61 year old female with increasing respiratory distress most likely 2/2 ARDS vs pulmonary edema. Septic Shock from UTI. Plan: Respiratory: Intubated ARDS improving RLL Pneumonia CXR 04/04 - Stable limited bilateral basilar airspace disease, right greater than left with no pneumothorax or pleural effusion identified bilaterally in the interval. Chest CT w/o 03/27 - Marked bilateral pulmonary edema as seen on chest radiography. Small to moderate bilateral pleural effusions.Small to moderate perihepatic and perisplenic ascites. ABG - pCO2 27/pO2 99/HCO3 22.8/pH 7.48 - vent settings 400/40/16/5 Duoneb 3mL INH q6h : Septic Shock Dr. Mejia consulted Dr. Dos Santos consulted WBC increased to 24.5 from 18.7 - Bands 0 - f/u procalcitonin - if positive will re-culture ESBL E. Coli in urine culture (03/17). Dr. Dos Santos consulted repeat urine culture (03/26) - Proteus Mirabilis - continue on Tigecycline 50mg IVPB q12h (started on 03/30) Repeat urine 04/27 - no growth Repeat blood cultures(03/30) - no growth at 4 days Trachasp culture 03/30 - no growth CV: Hypotension - systolic blood pressure in 70's Started on Levophed drip GI: Albumin 2.3 - repleted with albumin 25% q6h x 4 bags Hem: Dr. Neri consulted, help appreciated Hgb decreased to 8.0 from 8.5 Platelets 9 - patient transfused 1 unit of platelets Fibrinogen 149 (04/04) from 45 (04/03) from 142 (03/30) from 156 (03/29) from 89 ( 03/28) - patient transfused 10 units of cryoprecipitate on 04/03 and 5 units on 03/28 - if Fibrinogen falls below 100, transfuse another 5 units - continue to monitor T.Bili increased to 8.2 from 5.4 - direct bili 5.6 Nephrology: Dr. Roe consulted, help appreciated - Dr. Flynn actively covering case Hyponatremia resolved Strict I's and O's Endo: ISS Electrolytes: Mag 1.8 Phos 2.9 Prophylactic Care: Lovenox 20mg SC daily - discontinued protonix and SCDs Palliative Care consult - patient's condition is worsening, poor prognosis. Case discussed with Dr. Demetrio Sanches PGY1 <Erwin Atkinson - Last Filed: 04/04/17 16:42> CCU Objective - Vital Signs / Intake & Output Vital Signs (Last 4 hours): Vital Signs Temp Pulse Resp BP Pulse Ox 04/04/17 16:00 97.3 F L 110 H 28 H 98 04/04/17 15:59 110 H 26 H 97/63 L 98 04/04/17 15:00 110 H 29 H 99 04/04/17 14:59 111 H 30 H 96/56 L 99 04/04/17 14:00 120 H 33 H 98 04/04/17 13:59 120 H 33 H 104/68 98 04/04/17 13:00 116 H 31 H 99 04/04/17 12:59 116 H 32 H 96/62 L 99 Intake and Output (Last 8hrs): Intake & Output 04/04/17 04/04/17 04/04/17 06:59 14:59 22:59 Intake Total 505 482.5 205.0 Output Total 175 45 20 Balance 330 437.5 185.0 Weight 147 lb 6.4 oz Intake: Intake, IV Amount 100 87.5 65.0 Right Distal Port 100 50 Internal Jugular Right Medial Port 37.5 15.0 Internal Jugular Right Proximal Port 50 Internal Jugular Tube Feeding 405 315 90 Other 80 50 Output: Urine 175 45 20 Urethral ([place]) 175 45 20 Other: # Bowel Movements 1 1 - Medications Active Medications: Active Medications Generic Name Dose Route Start Last Admin Trade Name Freq PRN Reason Stop Dose Admin Albumin Human 12.5 gm 04/04/17 09:30 04/04/17 14:43 Albumin Human 25% (12.5 Gm/50 Ml) IV 04/05/17 03:31 12.5 gm Q6H [place] Administration Albuterol/Ipratropium 3 ml 03/30/17 14:00 04/04/17 14:31 Duoneb 3 Mg/0.5 Mg (3 Ml) Ud INH 3 ml RQ6 [place] Administration Tigecycline 50 mg/ Sodium 100 mls @ 100 mls/hr 03/30/17 07:00 04/04/17 06:01 Chloride IVPB 100 mls/hr Q12H [place] Administration Norepinephrine Bitartrate 8 mg 258 mls @ 7.74 mls/hr 04/04/17 09:31 04/04/17 09:54 / Dextrose IV 4 mcg/min .Q24H PRN 7.74 mls/hr TITRATE PER MD ORDER Administration Protocol 4 MCG/MIN Insulin Aspart 0 unit 03/28/17 12:00 04/04/17 11:53 Novolog SC Not Given Q6 [place] Protocol Pantoprazole Sodium 40 mg 03/28/17 09:30 04/04/17 09:41 Protonix Inj IVP 40 mg Q12H [place] Administration - Patient Studies Lab Studies: Microbiology Studies 03/30/17 11:10 Blood Culture - Final Blood-Thru Central Line NO GROWTH AFTER 5 DAYS Gram Stain - Final TEST NOT PERFORMED 03/30/17 11:10 Blood Culture - Final Blood-Thru Central Line NO GROWTH AFTER 5 DAYS Gram Stain - Final TEST NOT PERFORMED Lab Studies 04/04/17 04/04/17 04/04/17 Range/Units 11:51 08:14 07:33 WBC (4.8-10.8) K/uL RBC (3.80-5.20) Mil/uL Hgb (11.0-16.0) g/dL Hct (34.0-47.0) % MCV (81.0-99.0) fL MCH (27.0-31.0) pg MCHC (33.0-37.0) g/dL RDW (11.5-14.5) % Plt Count (130-400) K/uL MPV (7.2-11.7) fL Neut % (Auto) (50.0-75.0) % Lymph % (Auto) (20.0-40.0) % [place] % (Auto) (0.0-10.0) % Eos % (Auto) (0.0-4.0) % Baso % (Auto) (0.0-2.0) % Neut # (1.8-7.0) K/uL Lymph # (1.0-4.3) K/uL [place] # (0.0-0.8) K/uL Eos # (0.0-0.7) K/uL Baso # (0.0-0.2) K/uL Neutrophils % (Manual) (50-75) % Band Neutrophils % (0-2) % Lymphocytes % (Manual) (20-40) % Monocytes % (Manual) Platelet Estimate (NORMAL) Polychromasia Hypochromasia (manual) Anisocytosis (manual) Macrocytosis (manual) Target Cells Fibrinogen 149 L D (200-400) mg/dL Puncture Site pCO2 (35-45) mm/Hg pO2 (80-100) mm/Hg HCO3 (21-28) mmol/L ABG pH (7.35-7.45) ABG Total CO2 (22-28) mmol/L ABG O2 Saturation (95-98) % ABG Base Excess (-2.0-3.0) mmol/L ABG Hemoglobin (11.7-17.4) g/dL ABG Carboxyhemoglobin (0.5-1.5) % POC ABG HHb (Measured) (0.0-5.0) % ABG Methemoglobin (0.0-3.0) % Crescencio Test A-a O2 Difference mm/Hg Respiratory Index Hgb O2 Saturation (95.0-98.0) % Vent Mode Mechanical Rate FiO2 % Tidal Volume PEEP Sodium (132-148) mmol/L Potassium (3.6-5.2) mmol/L Chloride (98-107) mmol/L Carbon Dioxide (22-30) mmol/L Anion Gap (10-20) BUN (7-17) mg/dL Creatinine (0.7-1.2) mg/dL Est GFR ( Amer) Est GFR (Non-Af Amer) POC Glucose (mg/dL) 143 H (65-110) mg/dL Random Glucose (65-105) mg/dL Calcium (8.6-10.4) mg/dl Phosphorus (2.5-4.5) mg/dL Magnesium (1.6-2.3) mg/dL Total Bilirubin (0.2-1.3) mg/dL Direct Bilirubin (0.0-0.4) mg/dL AST (14-36) U/L ALT (9-52) U/L Alkaline Phosphatase (38-126) U/L Total Protein (6.3-8.3) g/dL Albumin (3.5-5.0) g/dL Globulin (2.2-3.9) gm/dL Albumin/Globulin Ratio (1.0-2.1) Procalcitonin 11.35 H (0.19-0.49) NG/ML 04/04/17 04/04/17 04/04/17 Range/Units 06:07 06:07 05:24 WBC 24.5 H (4.8-10.8) K/uL RBC 2.24 L (3.80-5.20) Mil/uL Hgb 8.0 L (11.0-16.0) g/dL Hct 24.1 L (34.0-47.0) % MCV 107.3 H (81.0-99.0) fL MCH 35.5 H (27.0-31.0) pg MCHC 33.1 (33.0-37.0) g/dL RDW 17.3 H (11.5-14.5) % Plt Count 9 L* (130-400) K/uL MPV 8.8 (7.2-11.7) fL Neut % (Auto) 89.9 H (50.0-75.0) % Lymph % (Auto) 8.5 L (20.0-40.0) % [place] % (Auto) 0.6 (0.0-10.0) % Eos % (Auto) 0.7 (0.0-4.0) % Baso % (Auto) 0.3 (0.0-2.0) % Neut # 22.0 H (1.8-7.0) K/uL Lymph # 2.1 (1.0-4.3) K/uL [place] # 0.1 (0.0-0.8) K/uL Eos # 0.2 (0.0-0.7) K/uL Baso # 0.1 (0.0-0.2) K/uL Neutrophils % (Manual) 88 H (50-75) % Band Neutrophils % 5 H (0-2) % Lymphocytes % (Manual) 7 L (20-40) % Monocytes % (Manual) TEST NOT PERFORMED Platelet Estimate Markedly decreased L (NORMAL) Polychromasia Slight Hypochromasia (manual) Slight Anisocytosis (manual) Slight Macrocytosis (manual) Moderate Target Cells Slight Fibrinogen (200-400) mg/dL Puncture Site Rb pCO2 27 L (35-45) mm/Hg pO2 99 (80-100) mm/Hg HCO3 22.8 (21-28) mmol/L ABG pH 7.48 H (7.35-7.45) ABG Total CO2 20.9 L (22-28) mmol/L ABG O2 Saturation 100.7 H (95-98) % ABG Base Excess -2.8 L (-2.0-3.0) mmol/L ABG Hemoglobin 7.8 L (11.7-17.4) g/dL ABG Carboxyhemoglobin 2.4 H (0.5-1.5) % POC ABG HHb (Measured) -0.7 L (0.0-5.0) % ABG Methemoglobin 0.8 (0.0-3.0) % Crescencio Test Na A-a O2 Difference 152.0 mm/Hg Respiratory Index 1.5 Hgb O2 Saturation 97.5 (95.0-98.0) % Vent Mode Prvc Mechanical Rate 16 FiO2 40.0 % Tidal Volume 400 PEEP 5 Sodium 141 (132-148) mmol/L Potassium 4.1 (3.6-5.2) mmol/L Chloride 104 (98-107) mmol/L Carbon Dioxide 23 (22-30) mmol/L Anion Gap 18 (10-20) BUN 59 H (7-17) mg/dL Creatinine 1.4 H (0.7-1.2) mg/dL Est GFR ( Amer) 46 Est GFR (Non-Af Amer) 38 POC Glucose (mg/dL) (65-110) mg/dL Random Glucose 123 H (65-105) mg/dL Calcium 8.4 L (8.6-10.4) mg/dl Phosphorus 2.9 (2.5-4.5) mg/dL Magnesium 1.8 (1.6-2.3) mg/dL Total Bilirubin 7.9 H (0.2-1.3) mg/dL Direct Bilirubin 5.6 H (0.0-0.4) mg/dL AST 45 H D (14-36) U/L ALT 62 H (9-52) U/L Alkaline Phosphatase 86 (38-126) U/L Total Protein 5.3 L (6.3-8.3) g/dL Albumin 2.3 L (3.5-5.0) g/dL Globulin 3.0 (2.2-3.9) gm/dL Albumin/Globulin Ratio 0.8 L (1.0-2.1) Procalcitonin (0.19-0.49) NG/ML 04/04/17 04/03/17 04/03/17 Range/Units 05:12 23:42 17:47 WBC (4.8-10.8) K/uL RBC (3.80-5.20) Mil/uL Hgb (11.0-16.0) g/dL Hct (34.0-47.0) % MCV (81.0-99.0) fL MCH (27.0-31.0) pg MCHC (33.0-37.0) g/dL RDW (11.5-14.5) % Plt Count (130-400) K/uL MPV (7.2-11.7) fL Neut % (Auto) (50.0-75.0) % Lymph % (Auto) (20.0-40.0) % [place] % (Auto) (0.0-10.0) % Eos % (Auto) (0.0-4.0) % Baso % (Auto) (0.0-2.0) % Neut # (1.8-7.0) K/uL Lymph # (1.0-4.3) K/uL [place] # (0.0-0.8) K/uL Eos # (0.0-0.7) K/uL Baso # (0.0-0.2) K/uL Neutrophils % (Manual) (50-75) % Band Neutrophils % (0-2) % Lymphocytes % (Manual) (20-40) % Monocytes % (Manual) Platelet Estimate (NORMAL) Polychromasia Hypochromasia (manual) Anisocytosis (manual) Macrocytosis (manual) Target Cells Fibrinogen (200-400) mg/dL Puncture Site pCO2 (35-45) mm/Hg pO2 (80-100) mm/Hg HCO3 (21-28) mmol/L ABG pH (7.35-7.45) ABG Total CO2 (22-28) mmol/L ABG O2 Saturation (95-98) % ABG Base Excess (-2.0-3.0) mmol/L ABG Hemoglobin (11.7-17.4) g/dL ABG Carboxyhemoglobin (0.5-1.5) % POC ABG HHb (Measured) (0.0-5.0) % ABG Methemoglobin (0.0-3.0) % Crescencio Test A-a O2 Difference mm/Hg Respiratory Index Hgb O2 Saturation (95.0-98.0) % Vent Mode Mechanical Rate FiO2 % Tidal Volume PEEP Sodium (132-148) mmol/L Potassium (3.6-5.2) mmol/L Chloride (98-107) mmol/L Carbon Dioxide (22-30) mmol/L Anion Gap (10-20) BUN (7-17) mg/dL Creatinine (0.7-1.2) mg/dL Est GFR ( Amer) Est GFR (Non-Af Amer) POC Glucose (mg/dL) 143 H 151 H 69 (65-110) mg/dL Random Glucose (65-105) mg/dL Calcium (8.6-10.4) mg/dl Phosphorus (2.5-4.5) mg/dL Magnesium (1.6-2.3) mg/dL Total Bilirubin (0.2-1.3) mg/dL Direct Bilirubin (0.0-0.4) mg/dL AST (14-36) U/L ALT (9-52) U/L Alkaline Phosphatase (38-126) U/L Total Protein (6.3-8.3) g/dL Albumin (3.5-5.0) g/dL Globulin (2.2-3.9) gm/dL Albumin/Globulin Ratio (1.0-2.1) Procalcitonin (0.19-0.49) NG/ML Laboratory Results - last 24 hr 04/03/17 04/03/17 04/04/17 17:47 23:42 05:12 WBC RBC Hgb Hct MCV MCH MCHC RDW Plt Count MPV Neut % (Auto) Lymph % (Auto) [place] % (Auto) Eos % (Auto) Baso % (Auto) Neut # Lymph # [place] # Eos # Baso # Neutrophils % (Manual) Band Neutrophils % Lymphocytes % (Manual) Monocytes % (Manual) Platelet Estimate Polychromasia Hypochromasia (manual) Anisocytosis (manual) Macrocytosis (manual) Target Cells Fibrinogen Puncture Site pCO2 pO2 HCO3 ABG pH ABG Total CO2 ABG O2 Saturation ABG Base Excess ABG Hemoglobin ABG Carboxyhemoglobin POC ABG HHb (Measured) ABG Methemoglobin Crescencio Test A-a O2 Difference Respiratory Index Hgb O2 Saturation Vent Mode Mechanical Rate FiO2 Tidal Volume PEEP Sodium Potassium Chloride Carbon Dioxide Anion Gap BUN Creatinine Est GFR ( Amer) Est GFR (Non-Af Amer) POC Glucose (mg/dL) 69 151 H 143 H Random Glucose Calcium Phosphorus Magnesium Total Bilirubin Direct Bilirubin AST ALT Alkaline Phosphatase Total Protein Albumin Globulin Albumin/Globulin Ratio Procalcitonin 04/04/17 04/04/17 04/04/17 05:24 06:07 06:07 WBC 24.5 H RBC 2.24 L Hgb 8.0 L Hct 24.1 L MCV 107.3 H MCH 35.5 H MCHC 33.1 RDW 17.3 H Plt Count 9 L* MPV 8.8 Neut % (Auto) 89.9 H Lymph % (Auto) 8.5 L [place] % (Auto) 0.6 Eos % (Auto) 0.7 Baso % (Auto) 0.3 Neut # 22.0 H Lymph # 2.1 [place] # 0.1 Eos # 0.2 Baso # 0.1 Neutrophils % (Manual) 88 H Band Neutrophils % 5 H Lymphocytes % (Manual) 7 L Monocytes % (Manual) TEST NOT PERFORMED Platelet Estimate Markedly decreased L Polychromasia Slight Hypochromasia (manual) Slight Anisocytosis (manual) Slight Macrocytosis (manual) Moderate Target Cells Slight Fibrinogen Puncture Site Rb pCO2 27 L pO2 99 HCO3 22.8 ABG pH 7.48 H ABG Total CO2 20.9 L ABG O2 Saturation 100.7 H ABG Base Excess -2.8 L ABG Hemoglobin 7.8 L ABG Carboxyhemoglobin 2.4 H POC ABG HHb (Measured) -0.7 L ABG Methemoglobin 0.8 Crescencio Test Na A-a O2 Difference 152.0 Respiratory Index 1.5 Hgb O2 Saturation 97.5 Vent Mode Prvc Mechanical Rate 16 FiO2 40.0 Tidal Volume 400 PEEP 5 Sodium 141 Potassium 4.1 Chloride 104 Carbon Dioxide 23 Anion Gap 18 BUN 59 H Creatinine 1.4 H Est GFR ( Amer) 46 Est GFR (Non-Af Amer) 38 POC Glucose (mg/dL) Random Glucose 123 H Calcium 8.4 L Phosphorus 2.9 Magnesium 1.8 Total Bilirubin 7.9 H Direct Bilirubin 5.6 H AST 45 H D ALT 62 H Alkaline Phosphatase 86 Total Protein 5.3 L Albumin 2.3 L Globulin 3.0 Albumin/Globulin Ratio 0.8 L Procalcitonin 04/04/17 04/04/17 04/04/17 07:33 08:14 11:51 WBC RBC Hgb Hct MCV MCH MCHC RDW Plt Count MPV Neut % (Auto) Lymph % (Auto) [place] % (Auto) Eos % (Auto) Baso % (Auto) Neut # Lymph # [place] # Eos # Baso # Neutrophils % (Manual) Band Neutrophils % Lymphocytes % (Manual) Monocytes % (Manual) Platelet Estimate Polychromasia Hypochromasia (manual) Anisocytosis (manual) Macrocytosis (manual) Target Cells Fibrinogen 149 L D Puncture Site pCO2 pO2 HCO3 ABG pH ABG Total CO2 ABG O2 Saturation ABG Base Excess ABG Hemoglobin ABG Carboxyhemoglobin POC ABG HHb (Measured) ABG Methemoglobin Crescencio Test A-a O2 Difference Respiratory Index Hgb O2 Saturation Vent Mode Mechanical Rate FiO2 Tidal Volume PEEP Sodium Potassium Chloride Carbon Dioxide Anion Gap BUN Creatinine Est GFR ( Amer) Est GFR (Non-Af Amer) POC Glucose (mg/dL) 143 H Random Glucose Calcium Phosphorus Magnesium Total Bilirubin Direct Bilirubin AST ALT Alkaline Phosphatase Total Protein Albumin Globulin Albumin/Globulin Ratio Procalcitonin 11.35 H Critical Care Progress Note - Nutrition Nutrition: Nutrition Category Date Time Status Heart Healthy Diet [DIET] Diets 03/17/17 Dinner Active Attending/Attestation - Attestation I have personally seen and examined this patient.: Yes I have fully participated in the care of the patient.: Yes I have reviewed all pertinent clinical information: Yes Notes (Text): 04/04/17 16:40 patient seen and examined in the intensive care unit. Case discussed with staff in the morning ROUNDS. Patient remains intubated on ventilatory support. No active bleeding noted Does not respond to vocal command Status post transfusion of platelets and cryoprecipitate yesterday Palliative evaluation Prognosis poor Continue antibiotics Started on pressors for hypotension IV albumin
[2017-04-04 09:28] LABS: BILIRUBIN,TOTAL 7.9 mg/dL (0.2-1.3)
[2017-04-04 09:29] LABS: BILIRUBIN,DIRECT 5.6 mg/dL (0.0-0.4)
[2017-04-04 09:36] LABS: NEUTROPHIL 88 % (50-75); TOTAL CELLS COUNTED 100
[2017-04-04] MEDS: Potassium & Sodium Phosphate PO SCH (09:41)
[2017-04-04] MEDS: Albumin Human 25% (12.5 gm/50 ml) IV SCH ×3 (09:41→22:12)
--- NOTE | 2017-04-04 10:59 | CP.PCM.PN ---
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 considering her overall poor prognosis (advanced liver failure, DIC, sepsis/shock, SARIKA); TEMPORARY DATA ENTRY CLERK is unlikely to change her outcome even when needed. consider palliative care holding diuretics to hypotension d/c neutraphos Monitor Input/Output, daily weights and renal function with basic metabolic panel Glycemic control Further work up/management as per primary team dose meds for GFR<10. Avoid fleets enema/magnesium based laxatives. Avoid nephrotoxins/NSAIDs/ iodinated contrast (unless needed emergently) Further work up for as per primary team Thanks for allowing me to participate in care of your patient. Please call if any Qs. Dr Jaya Flynn Office: [phone] Chief Complaint; unable Reason for consult: hyponatremia, SARIKA HPI: Pt is a 61 y/o F with hx of diabetes Mellitus hypertension, ex smoker, chronic etoh abuse and chronic pancreatitis initially presented with complaints of dysuria and being treated with antibiotics for UTI. she was getting D5/0.45% saline and noted to have decreased serum Na to 124 hence renal consult requested pt remains intubated and back on pressors. BP low again. low UOP. s/p cryo and plat transfusion Physical Examination: General Appearance: ill appearing, intubated orally Vitals reviewed and noted as below Head; Atraumatic, normocephalic ENT: orally intubated Neck; supple no lymphadenopathy, no thyromegaly or bruit Lungs: increase respiratory rate/effort. Breath sounds bilateral with rales Heart: Increased rate. s1s2 normal. No rub or gallop. Extremities: 3+ edema with anasarca. No varicose veins Neurological: Patient is non communicative Skin: Warm and dry. Normal turgor. No rash. Palpitation: Normal elasticity for age Abdomen: Abdomen is soft. Bowel sounds +. There is no abdominal tenderness, no guarding/rigidity no organomegaly has ascites Psych: unable MSK: no joint tenderness or swelling. Digits and nails normal, no deformity : kidney or bladder not palpable. has duong + Labs/imaging/EKG reviewed. Past medical history, past surgical history, family history, social history, allergy reviewed and noted as below Family hx: no hx of CKD. Rest non-contributory recent echo: normal LVEF CT abdomen: chronic pancreatitis, liver disease, increased echogenic kidneys. has compression fractures in vertebra Objective - Vital Signs/Intake and Output Vital Signs (last 24 hours): Temp Pulse Resp BP Pulse Ox 98.9 F 108 H 31 H 86/50 L 99 04/04/17 08:00 04/04/17 10:00 04/04/17 10:00 04/04/17 09:59 04/04/17 10:00 Intake and Output: 04/04/17 04/04/17 06:59 18:59 Intake Total 760 272.5 Output Total 235 15 Balance 525 257.5 - Medications Medications: Current Medications Albumin Human (Albumin Human 25% (12.5 Gm/50 Ml)) 12.5 gm IV Q6H [place] Stop: 04/05/17 03:31 Last Admin: 04/04/17 09:41 Dose: 12.5 gm Albuterol/Ipratropium (Duoneb 3 Mg/0.5 Mg (3 Ml) Ud) 3 ml INH RQ6 [facility] Last Admin: 04/04/17 08:02 Dose: 3 ml Tigecycline 50 mg/ Sodium (Chloride) 100 mls @ 100 mls/hr IVPB Q12H [facility] Last Admin: 04/04/17 06:01 Dose: 100 mls/hr Norepinephrine Bitartrate 8 mg (/ Dextrose) 258 mls @ 7.74 mls/hr IV .Q24H PRN ; Protocol; 4 MCG/MIN PRN Reason: TITRATE PER MD ORDER Last Admin: 04/04/17 09:54 Dose: 4 mcg/min, 7.74 mls/hr Insulin Aspart (Novolog) 0 unit SC Q6 [place] PRN Reason: Protocol Last Admin: 04/04/17 05:32 Dose: Not Given Pantoprazole Sodium (Protonix Inj) 40 mg IVP Q12H [facility] Last Admin: 04/04/17 09:41 Dose: 40 mg - Labs Labs: 04/04/17 06:07 04/04/17 06:07 PT 25.0 SECONDS (9.7-12.2) H 03/30/17 06:18 INR 2.2 03/30/17 06:18 APTT 67 SECONDS (21-34) H D 03/30/17 06:18
--- NOTE | 2017-04-04 14:54 | CP.PCM.CON ---
History of Present Illness - History of Present Illness History of Present Illness: Palliative consult requested for goals of care discussion re; poor prognosis Patient is a 61 yo female, looking much older than stated ag, admitted from home with difficulties walking and urinating X 2 days. Patient reports " right leg just gave out". Patient had a similar episode about a year ago. At home she uses cane to ambulate. Upon admission patient diagnosed with UTI and treated for. Severe thrombocytopenia diagnosed as well, Plt 9.0. Doctor Daron on board for [facility], and is believed that patient has DIC due to chronic thrombocytopenia, since 2014. During this hospital stay, patient sustained respiratory distress and was intubated and transferred to ICU for further care. Patient is treated symptomatically with blood transfusion and IV Albumin. Today WBC 24.0, Hb 8.0, Plt9.0, Fibrinogen 149. patient is on Levophed for BP supprt. BP 104/68, HR 120, RR 33 PMH: In addition to above mentioned: DM, smoker, ETOH, chronic pancreatitis Soc. Hx: , son and boyfrind listed as a contact people Fam. Hx: unobtainable at present Review of Systems - Review of Systems All systems: reviewed and no additional remarkable complaints except Review of Systems: ROS obtained from nursing due patient's status. Per nursing patient developed diarrhea since this morning and Flrxi seal tube was placed. Past Patient History - Infectious Disease Hx of Infectious Diseases: None - Past Medical History & Family History Past Medical History?: Yes - Past Social History Smoking Status: Former Smoker - CARDIAC Hx Congestive Heart Failure: Yes Hx Hypertension: Yes - PULMONARY Hx Respiratory Disorders: No - NEUROLOGICAL Hx Transient Ischemic Attacks (TIA): Yes (As per pt) - HEENT Hx HEENT Problems: No - RENAL Hx Chronic Kidney Disease: No - ENDOCRINE/METABOLIC Hx Diabetes Mellitus Type 1: Yes - HEMATOLOGICAL/ONCOLOGICAL Hx Blood Disorders: Yes Hx Anemia: Yes Hx Blood Transfusions: Yes - INTEGUMENTARY Hx Dermatological Problems: No - MUSCULOSKELETAL/RHEUMATOLOGICAL Hx Falls: Yes Hx Fractures: Yes (left 5th metacarpal) - GASTROINTESTINAL Hx Gastrointestinal Disorders: No - GENITOURINARY/GYNECOLOGICAL Hx Genitourinary Disorders: No - PSYCHIATRIC Hx Depression: Yes Hx Substance Use: No - SURGICAL HISTORY Hx Surgeries: Yes Hx Angiogram: Yes (Lt Hrt Angiocardiogram 04/2014) Hx Cardiac Catheterization: Yes (Lt hrt Cardiac cath 04/2014) Hx Orthopedic Surgery: Yes (left wrist) Other/Comment: ABDOMINAL EXPLORITORY SX. - ANESTHESIA Hx Anesthesia: Yes Hx Anesthesia Reactions: No Hx Malignant Hyperthermia: No Meds Allergies/Adverse Reactions: Allergies Allergy/AdvReac Type Severity Reaction Status Date / Time acetaminophen [From Tylenol] Allergy Intermediate SWELLING Verified 03/17/17 14: 32 codeine Allergy Intermediate SWELLING Verified 03/17/17 14:32 Penicillins Allergy Intermediate SWELLING Verified 03/17/17 14:32 - Medications Medications: Current Medications Albumin Human (Albumin Human 25% (12.5 Gm/50 Ml)) 12.5 gm IV Q6H [place] Stop: 04/05/17 03:31 Last Admin: 04/04/17 14:43 Dose: 12.5 gm Albuterol/Ipratropium (Duoneb 3 Mg/0.5 Mg (3 Ml) Ud) 3 ml INH RQ6 [facility] Last Admin: 04/04/17 14:31 Dose: 3 ml Tigecycline 50 mg/ Sodium (Chloride) 100 mls @ 100 mls/hr IVPB Q12H [facility] Last Admin: 04/04/17 06:01 Dose: 100 mls/hr Norepinephrine Bitartrate 8 mg (/ Dextrose) 258 mls @ 7.74 mls/hr IV .Q24H PRN ; Protocol; 4 MCG/MIN PRN Reason: TITRATE PER MD ORDER Last Admin: 04/04/17 09:54 Dose: 4 mcg/min, 7.74 mls/hr Insulin Aspart (Novolog) 0 unit SC Q6 [place] PRN Reason: Protocol Last Admin: 04/04/17 11:53 Dose: Not Given Pantoprazole Sodium (Protonix Inj) 40 mg IVP Q12H [facility] Last Admin: 04/04/17 09:41 Dose: 40 mg Physical Exam - Constitutional Appears: In Acute Distress, Chronically Ill - Head Exam Head Exam: ATRAUMATIC, NORMAL INSPECTION, NORMOCEPHALIC - Eye Exam Eye Exam: Normal appearance Pupil Exam: NORMAL ACCOMODATION - ENT Exam ENT Exam: Mucous Membranes Dry - Neck Exam Neck exam: Positive for: Normal Inspection - Respiratory Exam Respiratory Exam: Decreased Breath Sounds Additional comments: On MV support - Cardiovascular Exam Cardiovascular Exam: Tachycardia - GI/Abdominal Exam GI & Abdominal Exam: Hyperactive Bowel Sounds - Rectal Exam Rectal Exam: Deferred - Exam Additional comments: Gusman cath - Extremities Exam Extremities exam: Positive for: pedal edema - Back Exam Back exam: NORMAL INSPECTION - Neurological Exam Neurological exam: Motor Sensory Deficit - Psychiatric Exam Psychiatric exam: Flat Affect - Skin Skin Exam: Mottled, Petechiae Results - Vital Signs Recent Vital Signs: Last Vital Signs Temp 98.8 F 04/04/17 12:00 Pulse 120 H 04/04/17 14:00 Resp 33 H 04/04/17 14:00 BP 104/68 04/04/17 13:59 Pulse Ox 98 04/04/17 14:00 - Labs Result Diagrams: 04/04/17 06:07 04/04/17 06:07 Labs: Laboratory Results - last 24 hr 04/03/17 04/03/17 04/04/17 17:47 23:42 05:12 WBC RBC Hgb Hct MCV MCH MCHC RDW Plt Count MPV Neut % (Auto) Lymph % (Auto) [place] % (Auto) Eos % (Auto) Baso % (Auto) Neut # Lymph # [place] # Eos # Baso # Neutrophils % (Manual) Band Neutrophils % Lymphocytes % (Manual) Monocytes % (Manual) Platelet Estimate Polychromasia Hypochromasia (manual) Anisocytosis (manual) Macrocytosis (manual) Target Cells Fibrinogen Puncture Site pCO2 pO2 HCO3 ABG pH ABG Total CO2 ABG O2 Saturation ABG Base Excess ABG Hemoglobin ABG Carboxyhemoglobin POC ABG HHb (Measured) ABG Methemoglobin Crescencio Test A-a O2 Difference Respiratory Index Hgb O2 Saturation Vent Mode Mechanical Rate FiO2 Tidal Volume PEEP Sodium Potassium Chloride Carbon Dioxide Anion Gap BUN Creatinine Est GFR ( Amer) Est GFR (Non-Af Amer) POC Glucose (mg/dL) 69 151 H 143 H Random Glucose Calcium Phosphorus Magnesium Total Bilirubin Direct Bilirubin AST ALT Alkaline Phosphatase Total Protein Albumin Globulin Albumin/Globulin Ratio Procalcitonin 04/04/17 04/04/17 04/04/17 05:24 06:07 06:07 WBC 24.5 H RBC 2.24 L Hgb 8.0 L Hct 24.1 L MCV 107.3 H MCH 35.5 H MCHC 33.1 RDW 17.3 H Plt Count 9 L* MPV 8.8 Neut % (Auto) 89.9 H Lymph % (Auto) 8.5 L [place] % (Auto) 0.6 Eos % (Auto) 0.7 Baso % (Auto) 0.3 Neut # 22.0 H Lymph # 2.1 [place] # 0.1 Eos # 0.2 Baso # 0.1 Neutrophils % (Manual) 88 H Band Neutrophils % 5 H Lymphocytes % (Manual) 7 L Monocytes % (Manual) TEST NOT PERFORMED Platelet Estimate Markedly decreased L Polychromasia Slight Hypochromasia (manual) Slight Anisocytosis (manual) Slight Macrocytosis (manual) Moderate Target Cells Slight Fibrinogen Puncture Site Rb pCO2 27 L pO2 99 HCO3 22.8 ABG pH 7.48 H ABG Total CO2 20.9 L ABG O2 Saturation 100.7 H ABG Base Excess -2.8 L ABG Hemoglobin 7.8 L ABG Carboxyhemoglobin 2.4 H POC ABG HHb (Measured) -0.7 L ABG Methemoglobin 0.8 Crescencio Test Na A-a O2 Difference 152.0 Respiratory Index 1.5 Hgb O2 Saturation 97.5 Vent Mode Prvc Mechanical Rate 16 FiO2 40.0 Tidal Volume 400 PEEP 5 Sodium 141 Potassium 4.1 Chloride 104 Carbon Dioxide 23 Anion Gap 18 BUN 59 H Creatinine 1.4 H Est GFR ( Amer) 46 Est GFR (Non-Af Amer) 38 POC Glucose (mg/dL) Random Glucose 123 H Calcium 8.4 L Phosphorus 2.9 Magnesium 1.8 Total Bilirubin 7.9 H Direct Bilirubin 5.6 H AST 45 H D ALT 62 H Alkaline Phosphatase 86 Total Protein 5.3 L Albumin 2.3 L Globulin 3.0 Albumin/Globulin Ratio 0.8 L Procalcitonin 04/04/17 04/04/17 04/04/17 07:33 08:14 11:51 WBC RBC Hgb Hct MCV MCH MCHC RDW Plt Count MPV Neut % (Auto) Lymph % (Auto) [place] % (Auto) Eos % (Auto) Baso % (Auto) Neut # Lymph # [place] # Eos # Baso # Neutrophils % (Manual) Band Neutrophils % Lymphocytes % (Manual) Monocytes % (Manual) Platelet Estimate Polychromasia Hypochromasia (manual) Anisocytosis (manual) Macrocytosis (manual) Target Cells Fibrinogen 149 L D Puncture Site pCO2 pO2 HCO3 ABG pH ABG Total CO2 ABG O2 Saturation ABG Base Excess ABG Hemoglobin ABG Carboxyhemoglobin POC ABG HHb (Measured) ABG Methemoglobin Crescencio Test A-a O2 Difference Respiratory Index Hgb O2 Saturation Vent Mode Mechanical Rate FiO2 Tidal Volume PEEP Sodium Potassium Chloride Carbon Dioxide Anion Gap BUN Creatinine Est GFR ( Amer) Est GFR (Non-Af Amer) POC Glucose (mg/dL) 143 H Random Glucose Calcium Phosphorus Magnesium Total Bilirubin Direct Bilirubin AST ALT Alkaline Phosphatase Total Protein Albumin Globulin Albumin/Globulin Ratio Procalcitonin 11.35 H Assessment & Plan - Assessment and Plan (Free Text) Assessment: Palliative consult Code status Full Code, there is no advance [id number]/ Living will on chart, PPS 0% I reviewed medical records, all diagnostic studies, examined patient in the bed and discussed her presentation with Doctor Demetrio and nursing. Patient is intubated, unresponsive to stimuli, looking chronically ill. Skin is pale and waxy looking with severe pitting edema to upper and lower extremities and petechia to right thigh. Patient was provided care for large, loose BM at time of exam. Per nursing, it was a new development. I tried calling the son's contact number on the chart and both times got message back that " call could not be completed as dialed'. The edith phone number is a working number and left voice mail, asking for call back. Nursing did not have any other number for son Anil to be called. Impression * This is chronically ill lady with acute symptoms of thrombocytopenia and related severe anemia * Patient's presentation indicates combination of unhealthy life style and chronic condition; patient looks much older than stated age * This is a very complex clinical condition and meaningful recovery is not expected, despite all prudent care provided * Patient's wishes for the end of life care are not known * Patient's son is not reachable at number provided in the chart Suggestions * Goals of care needs to be discussed with patient's son, including DNR and removal of life support, as this patient's health is severely wasted and improved quality of life is not expected I will continue to fallow up with the son, or boyfriend, whoever comes first and discussed promotion of natural . Thank you very much for the consult
--- NOTE | 2017-04-04 17:35 | CP.PCM.PN ---
Subjective - Date & Time of Evaluation Date of Evaluation: 04/04/17 Time of Evaluation: 10:00 - Subjective Subjective: still intubated nonverbal doing poorly no new cultures Objective - Vital Signs/Intake and Output Vital Signs (last 24 hours): Temp Pulse Resp BP Pulse Ox 98.3 F 108 H 27 H 99/60 L 99 04/04/17 17:25 04/04/17 17:25 04/04/17 17:25 04/04/17 17:25 04/04/17 17:00 Intake and Output: 04/04/17 04/04/17 06:59 18:59 Intake Total 760 740.0 Output Total 235 70 Balance 525 670.0 - Medications Medications: Current Medications Albumin Human (Albumin Human 25% (12.5 Gm/50 Ml)) 12.5 gm IV Q6H [facility] Stop: 04/05/17 03:31 Last Admin: 04/04/17 14:43 Dose: 12.5 gm Albuterol/Ipratropium (Duoneb 3 Mg/0.5 Mg (3 Ml) Ud) 3 ml INH RQ6 [facility] Last Admin: 04/04/17 14:31 Dose: 3 ml Tigecycline 50 mg/ Sodium (Chloride) 100 mls @ 100 mls/hr IVPB Q12H [place] Last Admin: 04/04/17 06:01 Dose: 100 mls/hr Norepinephrine Bitartrate 8 mg (/ Dextrose) 258 mls @ 7.74 mls/hr IV .Q24H PRN ; Protocol; 4 MCG/MIN PRN Reason: TITRATE PER MD ORDER Last Admin: 04/04/17 09:54 Dose: 4 mcg/min, 7.74 mls/hr Insulin Aspart (Novolog) 0 unit SC Q6 [place] PRN Reason: Protocol Last Admin: 04/04/17 11:53 Dose: Not Given Pantoprazole Sodium (Protonix Inj) 40 mg IVP Q12H [facility] Last Admin: 04/04/17 09:41 Dose: 40 mg - Labs Labs: 04/04/17 06:07 04/04/17 06:07 PT 25.0 SECONDS (9.7-12.2) H 03/30/17 06:18 INR 2.2 03/30/17 06:18 APTT 67 SECONDS (21-34) H D 03/30/17 06:18 - Constitutional Appears: Non-toxic, Chronically Ill - Head Exam Head Exam: NORMOCEPHALIC - Eye Exam Eye Exam: PERRL - ENT Exam ENT Exam: Mucous Membranes Dry - Neck Exam Neck Exam: absent: Lymphadenopathy - Respiratory Exam Respiratory Exam: Decreased Breath Sounds - Cardiovascular Exam Cardiovascular Exam: REGULAR RHYTHM - GI/Abdominal Exam GI & Abdominal Exam: Distended, Soft - Rectal Exam Rectal Exam: Deferred - Exam Exam: NORMAL INSPECTION Assessment and Plan (1) Difficulty urinating Status: Acute (2) Difficulty walking Status: Acute (3) UTI (urinary tract infection) Status: Acute
--- NOTE | 2017-04-04 22:06 | CP.PCM.PN ---
Subjective - Date & Time of Evaluation Date of Evaluation: 04/04/17 Time of Evaluation: 13:30 - Subjective Subjective: Vented Objective - Vital Signs/Intake and Output Vital Signs (last 24 hours): Temp Pulse Resp BP Pulse Ox 98.2 F 105 H 26 H 97/57 L 98 04/04/17 18:24 04/04/17 21:00 04/04/17 21:00 04/04/17 20:50 04/04/17 21:00 Intake and Output: 04/04/17 04/05/17 18:59 06:59 Intake Total 1140.5 257.5 Output Total 325 60 Balance 815.5 197.5 - Medications Medications: Current Medications Albumin Human (Albumin Human 25% (12.5 Gm/50 Ml)) 12.5 gm IV Q6H [facility] Stop: 04/05/17 03:31 Last Admin: 04/04/17 14:43 Dose: 12.5 gm Albuterol/Ipratropium (Duoneb 3 Mg/0.5 Mg (3 Ml) Ud) 3 ml INH RQ6 [facility] Last Admin: 04/04/17 19:35 Dose: 3 ml Tigecycline 50 mg/ Sodium (Chloride) 100 mls @ 100 mls/hr IVPB Q12H [facility] Last Admin: 04/04/17 18:35 Dose: 100 mls/hr Norepinephrine Bitartrate 8 mg (/ Dextrose) 258 mls @ 7.74 mls/hr IV .Q24H PRN ; Protocol; 4 MCG/MIN PRN Reason: TITRATE PER MD ORDER Last Admin: 04/04/17 09:54 Dose: 4 mcg/min, 7.74 mls/hr Insulin Aspart (Novolog) 0 unit SC Q6 [place] PRN Reason: Protocol Last Admin: 04/04/17 18:38 Dose: 1 unit Pantoprazole Sodium (Protonix Inj) 40 mg IVP Q12H [facility] Last Admin: 04/04/17 09:41 Dose: 40 mg - Labs Labs: 04/04/17 06:07 04/04/17 06:07 PT 25.0 SECONDS (9.7-12.2) H 03/30/17 06:18 INR 2.2 03/30/17 06:18 APTT 67 SECONDS (21-34) H D 03/30/17 06:18 - Head Exam Head Exam: ATRAUMATIC - Eye Exam Eye Exam: Normal appearance - ENT Exam ENT Exam: Mucous Membranes Dry - Respiratory Exam Respiratory Exam: NORMAL BREATHING PATTERN - Cardiovascular Exam Cardiovascular Exam: +S1, +S2 - GI/Abdominal Exam GI & Abdominal Exam: Normal Bowel Sounds Assessment and Plan (1) DIC (disseminated intravascular coagulation) Assessment & Plan: secondary to sepsis on antibiotics cryopercipitate if fibrinogen < 100 Status: Acute (2) Thrombocytopenia Assessment & Plan: secondary to DIC and sepsis Status: Acute (3) Coagulopathy Assessment & Plan: secondary to DIC nutritional component Status: Acute (4) Anemia Assessment & Plan: chronic disease from sepsis micrangiopathic hemolysis from DIC Status: Acute
[2017-04-05] MEDS: Albuterol-Ipratrop 3 mg / 0.5 (3 ml) UD INH SCH ×4 (01:25→19:50)
[2017-04-05] MEDS: Albumin Human 25% (12.5 gm/50 ml) IV SCH (02:50)
[2017-04-05 05:29] LABS: ABG MECHANICAL RATE 16; ARTERIAL BLOOD GAS MODE PRVC; ARTERIAL BLOOD HGB O2 SAT 96.4 % (95.0-98.0); ATERIAL BLOOD GAS PEEP 5; CARBOXYHEMOGLOBIN 2.6 % (0.5-1.5); DRAW SITE RB; HHB -0.2 % (0.0-5.0); METHEMOGLOBIN 1.2 % (0.0-3.0)
[2017-04-05 06:27] LABS: BASO # 0.1 K/uL (0.0-0.2); BASO % 0.4 % (0.0-2.0); EOS # 0.2 K/uL (0.0-0.7); EOS % 1.2 % (0.0-4.0); HEMATOCRIT 20.7 % (34.0-47.0); LYMPH # 1.8 K/uL (1.0-4.3); LYMPH % 9.7 % (20.0-40.0); MEAN CELL VOLUME 108.6 fL (81.0-99.0); MEAN CORPUSCULAR HEMOGLOBIN 35.6 pg (27.0-31.0); MEAN CORPUSCULAR HGB CONC 32.7 g/dL (33.0-37.0); MEAN PLATELET VOLUME 8.5 fL (7.2-11.7); MONO # 0.4 K/uL (0.0-0.8); MONO % 2.3 % (0.0-10.0); NRBC % 0.2 % (0.0-2.0); RED CELL DISTRIBUTION WIDTH 17.3 % (11.5-14.5); WHITE BLOOD COUNT 18.7 K/uL (4.8-10.8)
[2017-04-05 06:42] LABS: ALB/GLOB RATIO 1.4 (1.0-2.1); MAGNESIUM 1.8 mg/dL (1.6-2.3); POTASSIUM 3.8 mmol/L (3.6-5.2); TOTAL PROTEIN 4.6 g/dL (6.3-8.3)
[2017-04-05 06:46] LABS: PLATELET COUNT 16 K/uL (130-400)
[2017-04-05] MEDS: (Novolog) Insulin Aspart, Recombinant 100 u/ml 10 ml vial SC SCH ×2 (06:46→11:48)
[2017-04-05 08:21] LABS: NEUTROPHIL 87 % (50-75); TOTAL CELLS COUNTED 100
[2017-04-05] MEDS ORDERED: Sodium Chloride 0.9% 500 ML IV ONE (08:55)
--- NOTE | 2017-04-05 09:02 | RAD ---
Chest x-ray single frontal view History: Intubated. Comparison: 04/04/2017 Findings: Lines and tubes stable position. Worsening diffuse increased interstitial lung markings suggestive for worsening infiltrate and or edema. Prominent patchy consolidative changes at both lung bases ; right greater than left with a small right pleural effusion. Linear atelectatic changes in the right mid lung zone. Cardiomegaly. Degenerative changes in the spine and shoulders. Impression: Lines and tubes stable position. Worsening diffuse increased interstitial lung markings suggestive for worsening infiltrate and or edema. Prominent patchy consolidative changes at both lung bases ; right greater than left with a small right pleural effusion. Linear atelectatic changes in the right mid lung zone. Cardiomegaly.
[2017-04-05] MEDS: Sodium Chloride 0.9% 1,000 ML IV SCH (12:00)
--- NOTE | 2017-04-05 14:51 | CP.PCM.PN ---
Subjective - Date & Time of Evaluation Date of Evaluation: 04/05/17 Time of Evaluation: 14:50 - Subjective Subjective: Follow up Nephrology Consultation: Assessment: critical acute kidney injury with oliguria, lactic acidosis, severe thrombocytopenia, septic shock, ARDS all leading to acute tubular necrosis: recurred DIC respi failure with bilateral pneumonia Hyponatremia likely due to cirrhosis: improved Hypomagnesemia, Hypokalemia, Anemia diabetes Mellitus hypertension, ex smoker, chronic etoh abuse and chronic pancreatitis UTI, back pain Plan no acute need for renal replacement therapy ([employer]) at this time. considering her overall poor prognosis (advanced liver failure, DIC, sepsis/shock, SARIKA); [employer] is unlikely to change her outcome even when needed. palliative care evaluation noted. holding diuretics to hypotension PRBC as needed for anemia. Monitor Input/Output, daily weights and renal function with basic metabolic panel Glycemic control Further work up/management as per primary team dose meds for reduced GFR. Avoid fleets enema/magnesium based laxatives. Avoid nephrotoxins/NSAIDs/ iodinated contrast (unless needed emergently) Further work up for as per primary team Thanks for allowing me to participate in care of your patient. Please call if any Qs. Dr Jaya Flynn Office: [phone] Chief Complaint; unable Reason for consult: hyponatremia, SARIKA HPI: Pt is a 61 y/o F with hx of diabetes Mellitus hypertension, ex smoker, chronic etoh abuse and chronic pancreatitis initially presented with complaints of dysuria and being treated with antibiotics for UTI. she was getting D5/0.45% saline and noted to have decreased serum Na to 124 hence renal consult requested pt remains intubated and back on pressors. BP low again. low UOP. s/p cryo and plat transfusion getting PRBC Physical Examination: General Appearance: ill appearing, intubated orally Vitals reviewed and noted as below Head; Atraumatic, normocephalic ENT: orally intubated Neck; supple no lymphadenopathy, no thyromegaly or bruit Lungs: increase respiratory rate/effort. Breath sounds bilateral with rales Heart: Increased rate. s1s2 normal. No rub or gallop. Extremities: 3+ edema with anasarca. No varicose veins Neurological: Patient is non communicative Skin: Warm and dry. Normal turgor. No rash. Palpitation: Normal elasticity for age Abdomen: Abdomen is soft. Bowel sounds +. There is no abdominal tenderness, no guarding/rigidity no organomegaly has ascites Psych: unable MSK: no joint tenderness or swelling. Digits and nails normal, no deformity : kidney or bladder not palpable. has duong + Labs/imaging/EKG reviewed. Past medical history, past surgical history, family history, social history, allergy reviewed and noted as below Family hx: no hx of CKD. Rest non-contributory recent echo: normal LVEF CT abdomen: chronic pancreatitis, liver disease, increased echogenic kidneys. has compression fractures in vertebra Objective - Vital Signs/Intake and Output Vital Signs (last 24 hours): Temp Pulse Resp BP Pulse Ox 98.9 F 115 H 33 H 102/60 95 04/05/17 14:18 04/05/17 14:33 04/05/17 14:33 04/05/17 14:33 04/05/17 14:33 Intake and Output: 04/05/17 04/05/17 06:59 18:59 Intake Total 923.4 404.2 Output Total 780 220 Balance 143.4 184.2 - Medications Medications: Current Medications Albuterol/Ipratropium (Duoneb 3 Mg/0.5 Mg (3 Ml) Ud) 3 ml INH RQ6 [place] Last Admin: 04/05/17 14:41 Dose: 3 ml Tigecycline 50 mg/ Sodium (Chloride) 100 mls @ 100 mls/hr IVPB Q12H [place] Last Admin: 04/05/17 06:45 Dose: 100 mls/hr Norepinephrine Bitartrate 8 mg (/ Dextrose) 258 mls @ 7.74 mls/hr IV .Q24H PRN ; Protocol; 4 MCG/MIN PRN Reason: TITRATE PER MD ORDER Last Titration: 04/05/17 12:00 Dose: 5 mcg/min, 9.67 mls/hr Sodium Chloride (Sodium Chloride 0.9%) 1,000 mls @ 100 mls/hr IV .Q10H [place] Last Admin: 04/05/17 12:00 Dose: 100 mls/hr Insulin Aspart (Novolog) 0 unit SC Q6 [place] PRN Reason: Protocol Last Admin: 04/05/17 11:48 Dose: Not Given Pantoprazole Sodium (Protonix Inj) 40 mg IVP Q12H [place] Last Admin: 04/05/17 09:47 Dose: 40 mg - Labs Labs: 04/05/17 06:20 04/05/17 06:20 PT 25.0 SECONDS (9.7-12.2) H 03/30/17 06:18 INR 2.2 03/30/17 06:18 APTT 67 SECONDS (21-34) H D 03/30/17 06:18
--- NOTE | 2017-04-05 15:29 | CP.CCUPN ---
<Mic Sanches - Last Filed: 04/05/17 15:26> CCU Subjective - Physician Review Subjective (Free Text): PGY1 ICU Progress Note for Dr. Andrade Patient seen and examined at bedside this morning. Patient intubated. Patient is not currently on any sedation. ROS unobtainable. CCU Objective - Vital Signs / Intake & Output Vital Signs (Last 4 hours): Vital Signs Temp Pulse Resp BP Pulse Ox 04/05/17 14:33 115 H 33 H 102/60 95 04/05/17 14:18 98.9 F 115 H 30 H 100/61 04/05/17 14:17 116 H 33 H 100/61 95 04/05/17 14:00 98.5 F 116 H 33 H 102/61 95 04/05/17 13:33 115 H 33 H 102/61 95 04/05/17 13:03 117 H 33 H 99/60 L 94 L 04/05/17 13:00 114 H 35 H 95 04/05/17 12:33 117 H 33 H 94/58 L 95 04/05/17 12:00 118 H 34 H 95 04/05/17 11:56 118 H 34 H 95/58 L 95 04/05/17 11:51 119 H 34 H 91/57 L 94 L Intake and Output (Last 8hrs): Intake & Output 04/05/17 04/05/17 04/05/17 06:59 14:59 22:59 Intake Total 555.4 404.2 Output Total 700 220 Balance -144.6 184.2 Weight 143 lb 143 lb Intake: IV 130 Intake, IV Amount 150.4 39.2 Right Distal Port 100 Internal Jugular Right Medial Port 50.4 39.2 Internal Jugular Tube Feeding 405 225 Blood Product 0 Apheresis Lrbc As-3 Unit 0 [id number] Other 10 Apheresis Lrbc As-3 Unit 10 [id number] Output: Urine 250 220 Urethral ([place]) 250 220 Stool 450 Other: # Bowel Movements 350 - Physical Exam Head: Positive for: Atraumatic, Normocephalic Pupils: Positive for: PERRL Extroacular Muscles: Positive for: EOMI Mouth: Positive for: Moist Mucous Membranes, Other (intubated) Neck: Positive for: Normal Range of Motion Respiratory/Chest: Positive for: Rales, Rhonchi, Other (restarted on levophed drip due to hypotension). Negative for: Accessory Muscle Use Cardiovascular: Positive for: Regular Rate and Rhythm Abdomen: Positive for: Distention, Normal Bowel Sounds, Other (tympanic to percussion. healing petechiae rash in center of abdomen ). Negative for: Tenderness Upper Extremity: Positive for: Other (multiple areas of ecchymosis at various stages of healing) Lower Extremity: Positive for: Edema, Other (multiple areas of ecchymosis at various stages of healing) Neurological: Positive for: Other (intubated. Not responsive on no sedation. ) Skin: Positive for: Warm, Dry. Negative for: Normal Color (appears yellowish) Psychiatric: Positive for: Other (intubated) - Medications Active Medications: Active Medications Generic Name Dose Route Start Last Admin Trade Name Freq PRN Reason Stop Dose Admin Albuterol/Ipratropium 3 ml 03/30/17 14:00 04/05/17 14:41 Duoneb 3 Mg/0.5 Mg (3 Ml) Ud INH 3 ml RQ6 [place] Administration Tigecycline 50 mg/ Sodium 100 mls @ 100 mls/hr 03/30/17 07:00 04/05/17 06:45 Chloride IVPB 100 mls/hr Q12H [place] Administration Norepinephrine Bitartrate 8 mg 258 mls @ 7.74 mls/hr 04/04/17 09:31 04/05/17 12:00 / Dextrose IV 5 mcg/min .Q24H PRN 9.67 mls/hr TITRATE PER MD ORDER Titration Protocol 4 MCG/MIN Sodium Chloride 1,000 mls @ 100 mls/hr 04/05/17 09:00 04/05/17 12:00 Sodium Chloride 0.9% IV 100 mls/hr .Q10H [place] Administration Insulin Aspart 0 unit 03/28/17 12:00 04/05/17 11:48 Novolog SC Not Given Q6 [place] Protocol Pantoprazole Sodium 40 mg 03/28/17 09:30 04/05/17 09:47 Protonix Inj IVP 40 mg Q12H [place] Administration - Patient Studies Lab Studies: Microbiology Studies 03/30/17 11:10 Blood Culture - Final Blood-Thru Central Line NO GROWTH AFTER 5 DAYS Gram Stain - Final TEST NOT PERFORMED 03/30/17 11:10 Blood Culture - Final Blood-Thru Central Line NO GROWTH AFTER 5 DAYS Gram Stain - Final TEST NOT PERFORMED Lab Studies 04/05/17 04/05/17 04/05/17 Range/Units 14:30 14:30 11:38 WBC (4.8-10.8) K/uL RBC (3.80-5.20) Mil/uL Hgb (11.0-16.0) g/dL Hct (34.0-47.0) % MCV (81.0-99.0) fL MCH (27.0-31.0) pg MCHC (33.0-37.0) g/dL RDW (11.5-14.5) % Plt Count (130-400) K/uL MPV (7.2-11.7) fL Neut % (Auto) (50.0-75.0) % Lymph % (Auto) (20.0-40.0) % [place] % (Auto) (0.0-10.0) % Eos % (Auto) (0.0-4.0) % Baso % (Auto) (0.0-2.0) % Neut # (1.8-7.0) K/uL Lymph # (1.0-4.3) K/uL [place] # (0.0-0.8) K/uL Eos # (0.0-0.7) K/uL Baso # (0.0-0.2) K/uL Neutrophils % (Manual) (50-75) % Band Neutrophils % (0-2) % Lymphocytes % (Manual) (20-40) % Monocytes % (Manual) Platelet Estimate (NORMAL) Polychromasia Hypochromasia (manual) Anisocytosis (manual) Macrocytosis (manual) Puncture Site pCO2 (35-45) mm/Hg pO2 (80-100) mm/Hg HCO3 (21-28) mmol/L ABG pH (7.35-7.45) ABG Total CO2 (22-28) mmol/L ABG O2 Saturation (95-98) % ABG Base Excess (-2.0-3.0) mmol/L ABG Hemoglobin (11.7-17.4) g/dL ABG Carboxyhemoglobin (0.5-1.5) % POC ABG HHb (Measured) (0.0-5.0) % ABG Methemoglobin (0.0-3.0) % Crescencio Test A-a O2 Difference mm/Hg Respiratory Index Hgb O2 Saturation (95.0-98.0) % Vent Mode Mechanical Rate FiO2 % Tidal Volume PEEP Sodium (132-148) mmol/L Potassium (3.6-5.2) mmol/L Chloride (98-107) mmol/L Carbon Dioxide (22-30) mmol/L Anion Gap (10-20) BUN (7-17) mg/dL Creatinine (0.7-1.2) mg/dL Est GFR ( Amer) Est GFR (Non-Af Amer) POC Glucose (mg/dL) 148 H (65-110) mg/dL Random Glucose (65-105) mg/dL Calcium (8.6-10.4) mg/dl Phosphorus (2.5-4.5) mg/dL Magnesium (1.6-2.3) mg/dL Total Bilirubin (0.2-1.3) mg/dL AST (14-36) U/L ALT (9-52) U/L Alkaline Phosphatase (38-126) U/L Lactate Dehydrogenase 554 (313-618) U/L Total Protein (6.3-8.3) g/dL Albumin (3.5-5.0) g/dL Globulin (2.2-3.9) gm/dL Albumin/Globulin Ratio (1.0-2.1) Stool Occult Blood Positive H (NEGATIVE) Blood Type Antibody Screen Antibody Identification 04/05/17 04/05/17 04/05/17 Range/Units 10:43 06:20 06:20 WBC 18.7 H (4.8-10.8) K/uL RBC 1.90 L (3.80-5.20) Mil/uL Hgb 6.8 L (11.0-16.0) g/dL Hct 20.7 L (34.0-47.0) % MCV 108.6 H (81.0-99.0) fL MCH 35.6 H (27.0-31.0) pg MCHC 32.7 L (33.0-37.0) g/dL RDW 17.3 H (11.5-14.5) % Plt Count 16 L* D (130-400) K/uL MPV 8.5 (7.2-11.7) fL Neut % (Auto) 86.4 H (50.0-75.0) % Lymph % (Auto) 9.7 L (20.0-40.0) % [place] % (Auto) 2.3 (0.0-10.0) % Eos % (Auto) 1.2 (0.0-4.0) % Baso % (Auto) 0.4 (0.0-2.0) % Neut # 16.1 H (1.8-7.0) K/uL Lymph # 1.8 (1.0-4.3) K/uL [place] # 0.4 (0.0-0.8) K/uL Eos # 0.2 (0.0-0.7) K/uL Baso # 0.1 (0.0-0.2) K/uL Neutrophils % (Manual) 87 H (50-75) % Band Neutrophils % 1 (0-2) % Lymphocytes % (Manual) 12 L (20-40) % Monocytes % (Manual) TEST NOT PERFORMED Platelet Estimate Markedly decreased L (NORMAL) Polychromasia Slight Hypochromasia (manual) Slight Anisocytosis (manual) Slight Macrocytosis (manual) Slight Puncture Site pCO2 (35-45) mm/Hg pO2 (80-100) mm/Hg HCO3 (21-28) mmol/L ABG pH (7.35-7.45) ABG Total CO2 (22-28) mmol/L ABG O2 Saturation (95-98) % ABG Base Excess (-2.0-3.0) mmol/L ABG Hemoglobin (11.7-17.4) g/dL ABG Carboxyhemoglobin (0.5-1.5) % POC ABG HHb (Measured) (0.0-5.0) % ABG Methemoglobin (0.0-3.0) % Crescencio Test A-a O2 Difference mm/Hg Respiratory Index Hgb O2 Saturation (95.0-98.0) % Vent Mode Mechanical Rate FiO2 % Tidal Volume PEEP Sodium 145 (132-148) mmol/L Potassium 3.8 (3.6-5.2) mmol/L Chloride 106 (98-107) mmol/L Carbon Dioxide 22 (22-30) mmol/L Anion Gap 21 H (10-20) BUN 71 H (7-17) mg/dL Creatinine 1.5 H (0.7-1.2) mg/dL Est GFR ( Amer) 43 Est GFR (Non-Af Amer) 35 POC Glucose (mg/dL) (65-110) mg/dL Random Glucose 143 H (65-105) mg/dL Calcium 9.0 (8.6-10.4) mg/dl Phosphorus 3.0 (2.5-4.5) mg/dL Magnesium 1.8 (1.6-2.3) mg/dL Total Bilirubin 8.0 H (0.2-1.3) mg/dL AST 28 (14-36) U/L ALT 46 (9-52) U/L Alkaline Phosphatase 54 (38-126) U/L Lactate Dehydrogenase (313-618) U/L Total Protein 4.6 L (6.3-8.3) g/dL Albumin 2.7 L (3.5-5.0) g/dL Globulin 1.9 L (2.2-3.9) gm/dL Albumin/Globulin Ratio 1.4 (1.0-2.1) Stool Occult Blood (NEGATIVE) Blood Type B POSITIVE Antibody Screen Positive Antibody Identification Cancelled 04/05/17 04/05/17 04/04/17 Range/Units 05:47 05:18 23:34 WBC (4.8-10.8) K/uL RBC (3.80-5.20) Mil/uL Hgb (11.0-16.0) g/dL Hct (34.0-47.0) % MCV (81.0-99.0) fL MCH (27.0-31.0) pg MCHC (33.0-37.0) g/dL RDW (11.5-14.5) % Plt Count (130-400) K/uL MPV (7.2-11.7) fL Neut % (Auto) (50.0-75.0) % Lymph % (Auto) (20.0-40.0) % [place] % (Auto) (0.0-10.0) % Eos % (Auto) (0.0-4.0) % Baso % (Auto) (0.0-2.0) % Neut # (1.8-7.0) K/uL Lymph # (1.0-4.3) K/uL [place] # (0.0-0.8) K/uL Eos # (0.0-0.7) K/uL Baso # (0.0-0.2) K/uL Neutrophils % (Manual) (50-75) % Band Neutrophils % (0-2) % Lymphocytes % (Manual) (20-40) % Monocytes % (Manual) Platelet Estimate (NORMAL) Polychromasia Hypochromasia (manual) Anisocytosis (manual) Macrocytosis (manual) Puncture Site Rb pCO2 31 L (35-45) mm/Hg pO2 95 (80-100) mm/Hg HCO3 24.2 (21-28) mmol/L ABG pH 7.47 H (7.35-7.45) ABG Total CO2 23.6 (22-28) mmol/L ABG O2 Saturation 100.2 H (95-98) % ABG Base Excess -0.9 (-2.0-3.0) mmol/L ABG Hemoglobin 6.9 L (11.7-17.4) g/dL ABG Carboxyhemoglobin 2.6 H (0.5-1.5) % POC ABG HHb (Measured) -0.2 L (0.0-5.0) % ABG Methemoglobin 1.2 (0.0-3.0) % Crescencio Test Na A-a O2 Difference 151.0 mm/Hg Respiratory Index 1.6 Hgb O2 Saturation 96.4 (95.0-98.0) % Vent Mode Prvc Mechanical Rate 16 FiO2 40.0 % Tidal Volume 400 PEEP 5 Sodium (132-148) mmol/L Potassium (3.6-5.2) mmol/L Chloride (98-107) mmol/L Carbon Dioxide (22-30) mmol/L Anion Gap (10-20) BUN (7-17) mg/dL Creatinine (0.7-1.2) mg/dL Est GFR ( Amer) Est GFR (Non-Af Amer) POC Glucose (mg/dL) 169 H 161 H (65-110) mg/dL Random Glucose (65-105) mg/dL Calcium (8.6-10.4) mg/dl Phosphorus (2.5-4.5) mg/dL Magnesium (1.6-2.3) mg/dL Total Bilirubin (0.2-1.3) mg/dL AST (14-36) U/L ALT (9-52) U/L Alkaline Phosphatase (38-126) U/L Lactate Dehydrogenase (313-618) U/L Total Protein (6.3-8.3) g/dL Albumin (3.5-5.0) g/dL Globulin (2.2-3.9) gm/dL Albumin/Globulin Ratio (1.0-2.1) Stool Occult Blood (NEGATIVE) Blood Type Antibody Screen Antibody Identification 04/04/17 Range/Units 17:38 WBC (4.8-10.8) K/uL RBC (3.80-5.20) Mil/uL Hgb (11.0-16.0) g/dL Hct (34.0-47.0) % MCV (81.0-99.0) fL MCH (27.0-31.0) pg MCHC (33.0-37.0) g/dL RDW (11.5-14.5) % Plt Count (130-400) K/uL MPV (7.2-11.7) fL Neut % (Auto) (50.0-75.0) % Lymph % (Auto) (20.0-40.0) % [place] % (Auto) (0.0-10.0) % Eos % (Auto) (0.0-4.0) % Baso % (Auto) (0.0-2.0) % Neut # (1.8-7.0) K/uL Lymph # (1.0-4.3) K/uL [place] # (0.0-0.8) K/uL Eos # (0.0-0.7) K/uL Baso # (0.0-0.2) K/uL Neutrophils % (Manual) (50-75) % Band Neutrophils % (0-2) % Lymphocytes % (Manual) (20-40) % Monocytes % (Manual) Platelet Estimate (NORMAL) Polychromasia Hypochromasia (manual) Anisocytosis (manual) Macrocytosis (manual) Puncture Site pCO2 (35-45) mm/Hg pO2 (80-100) mm/Hg HCO3 (21-28) mmol/L ABG pH (7.35-7.45) ABG Total CO2 (22-28) mmol/L ABG O2 Saturation (95-98) % ABG Base Excess (-2.0-3.0) mmol/L ABG Hemoglobin (11.7-17.4) g/dL ABG Carboxyhemoglobin (0.5-1.5) % POC ABG HHb (Measured) (0.0-5.0) % ABG Methemoglobin (0.0-3.0) % Crescencio Test A-a O2 Difference mm/Hg Respiratory Index Hgb O2 Saturation (95.0-98.0) % Vent Mode Mechanical Rate FiO2 % Tidal Volume PEEP Sodium (132-148) mmol/L Potassium (3.6-5.2) mmol/L Chloride (98-107) mmol/L Carbon Dioxide (22-30) mmol/L Anion Gap (10-20) BUN (7-17) mg/dL Creatinine (0.7-1.2) mg/dL Est GFR ( Amer) Est GFR (Non-Af Amer) POC Glucose (mg/dL) 154 H (65-110) mg/dL Random Glucose (65-105) mg/dL Calcium (8.6-10.4) mg/dl Phosphorus (2.5-4.5) mg/dL Magnesium (1.6-2.3) mg/dL Total Bilirubin (0.2-1.3) mg/dL AST (14-36) U/L ALT (9-52) U/L Alkaline Phosphatase (38-126) U/L Lactate Dehydrogenase (313-618) U/L Total Protein (6.3-8.3) g/dL Albumin (3.5-5.0) g/dL Globulin (2.2-3.9) gm/dL Albumin/Globulin Ratio (1.0-2.1) Stool Occult Blood (NEGATIVE) Blood Type Antibody Screen Antibody Identification Laboratory Results - last 24 hr 04/04/17 04/04/17 04/05/17 17:38 23:34 05:18 WBC RBC Hgb Hct MCV MCH MCHC RDW Plt Count MPV Neut % (Auto) Lymph % (Auto) [place] % (Auto) Eos % (Auto) Baso % (Auto) Neut # Lymph # [place] # Eos # Baso # Neutrophils % (Manual) Band Neutrophils % Lymphocytes % (Manual) Monocytes % (Manual) Platelet Estimate Polychromasia Hypochromasia (manual) Anisocytosis (manual) Macrocytosis (manual) Puncture Site Rb pCO2 31 L pO2 95 HCO3 24.2 ABG pH 7.47 H ABG Total CO2 23.6 ABG O2 Saturation 100.2 H ABG Base Excess -0.9 ABG Hemoglobin 6.9 L ABG Carboxyhemoglobin 2.6 H POC ABG HHb (Measured) -0.2 L ABG Methemoglobin 1.2 Crescencio Test Na A-a O2 Difference 151.0 Respiratory Index 1.6 Hgb O2 Saturation 96.4 Vent Mode Prvc Mechanical Rate 16 FiO2 40.0 Tidal Volume 400 PEEP 5 Sodium Potassium Chloride Carbon Dioxide Anion Gap BUN Creatinine Est GFR ( Amer) Est GFR (Non-Af Amer) POC Glucose (mg/dL) 154 H 161 H Random Glucose Calcium Phosphorus Magnesium Total Bilirubin AST ALT Alkaline Phosphatase Lactate Dehydrogenase Total Protein Albumin Globulin Albumin/Globulin Ratio Stool Occult Blood Blood Type Antibody Screen Antibody Identification 04/05/17 04/05/17 04/05/17 05:47 06:20 06:20 WBC 18.7 H RBC 1.90 L Hgb 6.8 L Hct 20.7 L MCV 108.6 H MCH 35.6 H MCHC 32.7 L RDW 17.3 H Plt Count 16 L* D MPV 8.5 Neut % (Auto) 86.4 H Lymph % (Auto) 9.7 L [place] % (Auto) 2.3 Eos % (Auto) 1.2 Baso % (Auto) 0.4 Neut # 16.1 H Lymph # 1.8 [place] # 0.4 Eos # 0.2 Baso # 0.1 Neutrophils % (Manual) 87 H Band Neutrophils % 1 Lymphocytes % (Manual) 12 L Monocytes % (Manual) TEST NOT PERFORMED Platelet Estimate Markedly decreased L Polychromasia Slight Hypochromasia (manual) Slight Anisocytosis (manual) Slight Macrocytosis (manual) Slight Puncture Site pCO2 pO2 HCO3 ABG pH ABG Total CO2 ABG O2 Saturation ABG Base Excess ABG Hemoglobin ABG Carboxyhemoglobin POC ABG HHb (Measured) ABG Methemoglobin Crescencio Test A-a O2 Difference Respiratory Index Hgb O2 Saturation Vent Mode Mechanical Rate FiO2 Tidal Volume PEEP Sodium 145 Potassium 3.8 Chloride 106 Carbon Dioxide 22 Anion Gap 21 H BUN 71 H Creatinine 1.5 H Est GFR ( Amer) 43 Est GFR (Non-Af Amer) 35 POC Glucose (mg/dL) 169 H Random Glucose 143 H Calcium 9.0 Phosphorus 3.0 Magnesium 1.8 Total Bilirubin 8.0 H AST 28 ALT 46 Alkaline Phosphatase 54 Lactate Dehydrogenase Total Protein 4.6 L Albumin 2.7 L Globulin 1.9 L Albumin/Globulin Ratio 1.4 Stool Occult Blood Blood Type Antibody Screen Antibody Identification 04/05/17 04/05/17 04/05/17 10:43 11:38 14:30 WBC RBC Hgb Hct MCV MCH MCHC RDW Plt Count MPV Neut % (Auto) Lymph % (Auto) [place] % (Auto) Eos % (Auto) Baso % (Auto) Neut # Lymph # [place] # Eos # Baso # Neutrophils % (Manual) Band Neutrophils % Lymphocytes % (Manual) Monocytes % (Manual) Platelet Estimate Polychromasia Hypochromasia (manual) Anisocytosis (manual) Macrocytosis (manual) Puncture Site pCO2 pO2 HCO3 ABG pH ABG Total CO2 ABG O2 Saturation ABG Base Excess ABG Hemoglobin ABG Carboxyhemoglobin POC ABG HHb (Measured) ABG Methemoglobin Crescencio Test A-a O2 Difference Respiratory Index Hgb O2 Saturation Vent Mode Mechanical Rate FiO2 Tidal Volume PEEP Sodium Potassium Chloride Carbon Dioxide Anion Gap BUN Creatinine Est GFR ( Amer) Est GFR (Non-Af Amer) POC Glucose (mg/dL) 148 H Random Glucose Calcium Phosphorus Magnesium Total Bilirubin AST ALT Alkaline Phosphatase Lactate Dehydrogenase Total Protein Albumin Globulin Albumin/Globulin Ratio Stool Occult Blood Positive H Blood Type B POSITIVE Antibody Screen Positive Antibody Identification Cancelled 04/05/17 14:30 WBC RBC Hgb Hct MCV MCH MCHC RDW Plt Count MPV Neut % (Auto) Lymph % (Auto) [place] % (Auto) Eos % (Auto) Baso % (Auto) Neut # Lymph # [place] # Eos # Baso # Neutrophils % (Manual) Band Neutrophils % Lymphocytes % (Manual) Monocytes % (Manual) Platelet Estimate Polychromasia Hypochromasia (manual) Anisocytosis (manual) Macrocytosis (manual) Puncture Site pCO2 pO2 HCO3 ABG pH ABG Total CO2 ABG O2 Saturation ABG Base Excess ABG Hemoglobin ABG Carboxyhemoglobin POC ABG HHb (Measured) ABG Methemoglobin Crescencio Test A-a O2 Difference Respiratory Index Hgb O2 Saturation Vent Mode Mechanical Rate FiO2 Tidal Volume PEEP Sodium Potassium Chloride Carbon Dioxide Anion Gap BUN Creatinine Est GFR ( Amer) Est GFR (Non-Af Amer) POC Glucose (mg/dL) Random Glucose Calcium Phosphorus Magnesium Total Bilirubin AST ALT Alkaline Phosphatase Lactate Dehydrogenase 554 Total Protein Albumin Globulin Albumin/Globulin Ratio Stool Occult Blood Blood Type Antibody Screen Antibody Identification Fingerstick Blood Sugar Results: 148 Review of Systems - Review of Systems Systems not reviewed;Unavailable: Intubated Critical Care Progress Note - Nutrition Nutrition: Nutrition Category Date Time Status Heart Healthy Diet [DIET] Diets 03/17/17 Dinner Active Assessment/Plan - Assessment and Plan (Free Text) Assessment: Patient is a 61 year old female with increasing respiratory distress most likely 2/2 ARDS vs pulmonary edema. Septic Shock from UTI. Plan: Respiratory: Intubated ARDS improving RLL Pneumonia CXR 04/05 - Lines and tubes stable position. Worsening diffuse increased interstitial lung markings suggestive for worsening infiltrate and or edema. Prominent patchy consolidative changes at both lung bases ; right greater than left with a small right pleural effusion. Linear atelectatic changes in the right mid lung zone. Cardiomegaly. Chest CT w/o 03/27 - Marked bilateral pulmonary edema as seen on chest radiography. Small to moderate bilateral pleural effusions.Small to moderate perihepatic and perisplenic ascites. ABG - pCO2 31/pO2 95/HCO3 24.2/pH 7.47 - vent settings 400/40/16/5 Duoneb 3mL INH q6h : Septic Shock Dr. Mejia consulted Dr. Dos Santos consulted WBC decreased to 18.7 from 24.5 - Bands 1 (yesterday 5) - procalcitonin (04/04) - 11.35 - f/u repeat blood culture (04/05) - f/u repeat urine culture (04/05) ESBL E. Coli in urine culture (03/17). Dr. Dos Santos consulted repeat urine culture (03/26) - Proteus Mirabilis - on Tigecycline 50mg IVPB q12h (started on 03/30) Repeat urine 04/27 - no growth Repeat blood cultures(03/30) - no growth at 5 days Trachasp culture 03/30 - no growth CV: Hypotension - sepsis vs hypovolemia NS 500ml bolus Started on NS @ 100ml/hr Levophed drip GI: Stool occult positive Albumin 2.7 Hem: Dr. Neri consulted, help appreciated Hgb decreased to 6.8 from 8.0 - transfused 2 units of pRBC (patient found to be antibody positive) Platelets 16 - patient transfused 1 unit of platelets Fibrinogen 149 (04/04) from 45 (04/03) from 142 (03/30) from 156 (03/29) from 89 ( 03/28) - patient transfused 10 units of cryoprecipitate on 04/03 and 5 units on 03/28 - if Fibrinogen falls below 100, transfuse another 5 units - continue to monitor T.Bili increased to 8.0 from 7.9 - direct bili 5.6 (04/04) LDH - 554 f/u haptoglobin Nephrology: Dr. Roe consulted, help appreciated - Dr. Flynn actively covering case Cr worsening 1.5 from 1.4 Strict I's and O's Endo: ISS Electrolytes: Mag 1.8 Phos 3.0 Prophylactic Care: protonix and SCDs No anticoagulation due to GI bleed Palliative Care consult - patient's condition is worsening, poor prognosis. Case discussed with Dr. Lupe Haile Verónica PGY1 <Phillip Andrade - Last Filed: 04/05/17 18:05> CCU Objective - Vital Signs / Intake & Output Vital Signs (Last 4 hours): Vital Signs Temp Pulse Resp BP Pulse Ox 04/05/17 17:00 97.6 F 108 H 30 H 112/71 04/05/17 16:33 110 H 33 H 110/90 04/05/17 16:03 114 H 32 H 110/69 04/05/17 16:00 113 H 32 H 95 04/05/17 15:33 112 H 32 H 105/65 04/05/17 15:03 110 H 33 H 106/64 04/05/17 15:00 114 H 33 H 96 04/05/17 14:33 110 H 33 H 105/65 95 04/05/17 14:18 98.9 F 115 H 30 H 100/61 04/05/17 14:17 116 H 33 H 100/61 95 04/05/17 14:00 98.5 F 116 H 33 H 102/61 95 Intake and Output (Last 8hrs): Intake & Output 04/05/17 04/05/17 04/05/17 06:59 14:59 22:59 Intake Total 555.4 416.2 308.2 Output Total 700 220 60 Balance -144.6 196.2 248.2 Weight 143 lb 143 lb Intake: IV 130 Intake, IV Amount 150.4 51.2 19.2 Right Distal Port 100 Internal Jugular Right Medial Port 50.4 51.2 19.2 Internal Jugular Tube Feeding 405 225 Blood Product 0 279 Apheresis Lrbc As-3 Unit 0 279 [id number] Other 10 10 Apheresis Lrbc As-3 Unit 10 10 [id number] Output: Urine 250 220 60 Urethral ([place]) 250 220 60 Stool 450 Other: # Bowel Movements 350 - Medications Active Medications: Active Medications Generic Name Dose Route Start Last Admin Trade Name Freq PRN Reason Stop Dose Admin Albuterol/Ipratropium 3 ml 03/30/17 14:00 04/05/17 14:41 Duoneb 3 Mg/0.5 Mg (3 Ml) Ud INH 3 ml RQ6 [place] Administration Tigecycline 50 mg/ Sodium 100 mls @ 100 mls/hr 03/30/17 07:00 04/05/17 06:45 Chloride IVPB 100 mls/hr Q12H [place] Administration Norepinephrine Bitartrate 8 mg 258 mls @ 7.74 mls/hr 04/04/17 09:31 04/05/17 12:00 / Dextrose IV 5 mcg/min .Q24H PRN 9.67 mls/hr TITRATE PER MD ORDER Titration Protocol 4 MCG/MIN Sodium Chloride 1,000 mls @ 100 mls/hr 04/05/17 09:00 04/05/17 12:00 Sodium Chloride 0.9% IV 100 mls/hr .Q10H [place] Administration Insulin Aspart 0 unit 03/28/17 12:00 04/05/17 11:48 Novolog SC Not Given Q6 [place] Protocol Pantoprazole Sodium 40 mg 03/28/17 09:30 04/05/17 09:47 Protonix Inj IVP 40 mg Q12H [place] Administration - Patient Studies Lab Studies: Microbiology Studies 03/30/17 11:10 Blood Culture - Final Blood-Thru Central Line NO GROWTH AFTER 5 DAYS Gram Stain - Final TEST NOT PERFORMED 03/30/17 11:10 Blood Culture - Final Blood-Thru Central Line NO GROWTH AFTER 5 DAYS Gram Stain - Final TEST NOT PERFORMED Lab Studies 04/05/17 04/05/17 04/05/17 Range/Units 14:30 14:30 11:38 WBC (4.8-10.8) K/uL RBC (3.80-5.20) Mil/uL Hgb (11.0-16.0) g/dL Hct (34.0-47.0) % MCV (81.0-99.0) fL MCH (27.0-31.0) pg MCHC (33.0-37.0) g/dL RDW (11.5-14.5) % Plt Count (130-400) K/uL MPV (7.2-11.7) fL Neut % (Auto) (50.0-75.0) % Lymph % (Auto) (20.0-40.0) % [place] % (Auto) (0.0-10.0) % Eos % (Auto) (0.0-4.0) % Baso % (Auto) (0.0-2.0) % Neut # (1.8-7.0) K/uL Lymph # (1.0-4.3) K/uL [place] # (0.0-0.8) K/uL Eos # (0.0-0.7) K/uL Baso # (0.0-0.2) K/uL Neutrophils % (Manual) (50-75) % Band Neutrophils % (0-2) % Lymphocytes % (Manual) (20-40) % Monocytes % (Manual) Platelet Estimate (NORMAL) Polychromasia Hypochromasia (manual) Anisocytosis (manual) Macrocytosis (manual) Puncture Site pCO2 (35-45) mm/Hg pO2 (80-100) mm/Hg HCO3 (21-28) mmol/L ABG pH (7.35-7.45) ABG Total CO2 (22-28) mmol/L ABG O2 Saturation (95-98) % ABG Base Excess (-2.0-3.0) mmol/L ABG Hemoglobin (11.7-17.4) g/dL ABG Carboxyhemoglobin (0.5-1.5) % POC ABG HHb (Measured) (0.0-5.0) % ABG Methemoglobin (0.0-3.0) % Crescencio Test A-a O2 Difference mm/Hg Respiratory Index Hgb O2 Saturation (95.0-98.0) % Vent Mode Mechanical Rate FiO2 % Tidal Volume PEEP Sodium (132-148) mmol/L Potassium (3.6-5.2) mmol/L Chloride (98-107) mmol/L Carbon Dioxide (22-30) mmol/L Anion Gap (10-20) BUN (7-17) mg/dL Creatinine (0.7-1.2) mg/dL Est GFR ( Amer) Est GFR (Non-Af Amer) POC Glucose (mg/dL) 148 H (65-110) mg/dL Random Glucose (65-105) mg/dL Calcium (8.6-10.4) mg/dl Phosphorus (2.5-4.5) mg/dL Magnesium (1.6-2.3) mg/dL Total Bilirubin (0.2-1.3) mg/dL AST (14-36) U/L ALT (9-52) U/L Alkaline Phosphatase (38-126) U/L Lactate Dehydrogenase 554 (313-618) U/L Total Protein (6.3-8.3) g/dL Albumin (3.5-5.0) g/dL Globulin (2.2-3.9) gm/dL Albumin/Globulin Ratio (1.0-2.1) Stool Occult Blood Positive H (NEGATIVE) Blood Type Antibody Screen Antibody Identification 04/05/17 04/05/17 04/05/17 Range/Units 10:43 06:20 06:20 WBC 18.7 H (4.8-10.8) K/uL RBC 1.90 L (3.80-5.20) Mil/uL Hgb 6.8 L (11.0-16.0) g/dL Hct 20.7 L (34.0-47.0) % MCV 108.6 H (81.0-99.0) fL MCH 35.6 H (27.0-31.0) pg MCHC 32.7 L (33.0-37.0) g/dL RDW 17.3 H (11.5-14.5) % Plt Count 16 L* D (130-400) K/uL MPV 8.5 (7.2-11.7) fL Neut % (Auto) 86.4 H (50.0-75.0) % Lymph % (Auto) 9.7 L (20.0-40.0) % [place] % (Auto) 2.3 (0.0-10.0) % Eos % (Auto) 1.2 (0.0-4.0) % Baso % (Auto) 0.4 (0.0-2.0) % Neut # 16.1 H (1.8-7.0) K/uL Lymph # 1.8 (1.0-4.3) K/uL [place] # 0.4 (0.0-0.8) K/uL Eos # 0.2 (0.0-0.7) K/uL Baso # 0.1 (0.0-0.2) K/uL Neutrophils % (Manual) 87 H (50-75) % Band Neutrophils % 1 (0-2) % Lymphocytes % (Manual) 12 L (20-40) % Monocytes % (Manual) TEST NOT PERFORMED Platelet Estimate Markedly decreased L (NORMAL) Polychromasia Slight Hypochromasia (manual) Slight Anisocytosis (manual) Slight Macrocytosis (manual) Slight Puncture Site pCO2 (35-45) mm/Hg pO2 (80-100) mm/Hg HCO3 (21-28) mmol/L ABG pH (7.35-7.45) ABG Total CO2 (22-28) mmol/L ABG O2 Saturation (95-98) % ABG Base Excess (-2.0-3.0) mmol/L ABG Hemoglobin (11.7-17.4) g/dL ABG Carboxyhemoglobin (0.5-1.5) % POC ABG HHb (Measured) (0.0-5.0) % ABG Methemoglobin (0.0-3.0) % Crescencio Test A-a O2 Difference mm/Hg Respiratory Index Hgb O2 Saturation (95.0-98.0) % Vent Mode Mechanical Rate FiO2 % Tidal Volume PEEP Sodium 145 (132-148) mmol/L Potassium 3.8 (3.6-5.2) mmol/L Chloride 106 (98-107) mmol/L Carbon Dioxide 22 (22-30) mmol/L Anion Gap 21 H (10-20) BUN 71 H (7-17) mg/dL Creatinine 1.5 H (0.7-1.2) mg/dL Est GFR ( Amer) 43 Est GFR (Non-Af Amer) 35 POC Glucose (mg/dL) (65-110) mg/dL Random Glucose 143 H (65-105) mg/dL Calcium 9.0 (8.6-10.4) mg/dl Phosphorus 3.0 (2.5-4.5) mg/dL Magnesium 1.8 (1.6-2.3) mg/dL Total Bilirubin 8.0 H (0.2-1.3) mg/dL AST 28 (14-36) U/L ALT 46 (9-52) U/L Alkaline Phosphatase 54 (38-126) U/L Lactate Dehydrogenase (313-618) U/L Total Protein 4.6 L (6.3-8.3) g/dL Albumin 2.7 L (3.5-5.0) g/dL Globulin 1.9 L (2.2-3.9) gm/dL Albumin/Globulin Ratio 1.4 (1.0-2.1) Stool Occult Blood (NEGATIVE) Blood Type B POSITIVE Antibody Screen Positive Antibody Identification Cancelled 04/05/17 04/05/17 04/04/17 Range/Units 05:47 05:18 23:34 WBC (4.8-10.8) K/uL RBC (3.80-5.20) Mil/uL Hgb (11.0-16.0) g/dL Hct (34.0-47.0) % MCV (81.0-99.0) fL MCH (27.0-31.0) pg MCHC (33.0-37.0) g/dL RDW (11.5-14.5) % Plt Count (130-400) K/uL MPV (7.2-11.7) fL Neut % (Auto) (50.0-75.0) % Lymph % (Auto) (20.0-40.0) % [place] % (Auto) (0.0-10.0) % Eos % (Auto) (0.0-4.0) % Baso % (Auto) (0.0-2.0) % Neut # (1.8-7.0) K/uL Lymph # (1.0-4.3) K/uL [place] # (0.0-0.8) K/uL Eos # (0.0-0.7) K/uL Baso # (0.0-0.2) K/uL Neutrophils % (Manual) (50-75) % Band Neutrophils % (0-2) % Lymphocytes % (Manual) (20-40) % Monocytes % (Manual) Platelet Estimate (NORMAL) Polychromasia Hypochromasia (manual) Anisocytosis (manual) Macrocytosis (manual) Puncture Site Rb pCO2 31 L (35-45) mm/Hg pO2 95 (80-100) mm/Hg HCO3 24.2 (21-28) mmol/L ABG pH 7.47 H (7.35-7.45) ABG Total CO2 23.6 (22-28) mmol/L ABG O2 Saturation 100.2 H (95-98) % ABG Base Excess -0.9 (-2.0-3.0) mmol/L ABG Hemoglobin 6.9 L (11.7-17.4) g/dL ABG Carboxyhemoglobin 2.6 H (0.5-1.5) % POC ABG HHb (Measured) -0.2 L (0.0-5.0) % ABG Methemoglobin 1.2 (0.0-3.0) % Crescencio Test Na A-a O2 Difference 151.0 mm/Hg Respiratory Index 1.6 Hgb O2 Saturation 96.4 (95.0-98.0) % Vent Mode Prvc Mechanical Rate 16 FiO2 40.0 % Tidal Volume 400 PEEP 5 Sodium (132-148) mmol/L Potassium (3.6-5.2) mmol/L Chloride (98-107) mmol/L Carbon Dioxide (22-30) mmol/L Anion Gap (10-20) BUN (7-17) mg/dL Creatinine (0.7-1.2) mg/dL Est GFR ( Amer) Est GFR (Non-Af Amer) POC Glucose (mg/dL) 169 H 161 H (65-110) mg/dL Random Glucose (65-105) mg/dL Calcium (8.6-10.4) mg/dl Phosphorus (2.5-4.5) mg/dL Magnesium (1.6-2.3) mg/dL Total Bilirubin (0.2-1.3) mg/dL AST (14-36) U/L ALT (9-52) U/L Alkaline Phosphatase (38-126) U/L Lactate Dehydrogenase (313-618) U/L Total Protein (6.3-8.3) g/dL Albumin (3.5-5.0) g/dL Globulin (2.2-3.9) gm/dL Albumin/Globulin Ratio (1.0-2.1) Stool Occult Blood (NEGATIVE) Blood Type Antibody Screen Antibody Identification 04/04/17 Range/Units 17:38 WBC (4.8-10.8) K/uL RBC (3.80-5.20) Mil/uL Hgb (11.0-16.0) g/dL Hct (34.0-47.0) % MCV (81.0-99.0) fL MCH (27.0-31.0) pg MCHC (33.0-37.0) g/dL RDW (11.5-14.5) % Plt Count (130-400) K/uL MPV (7.2-11.7) fL Neut % (Auto) (50.0-75.0) % Lymph % (Auto) (20.0-40.0) % [place] % (Auto) (0.0-10.0) % Eos % (Auto) (0.0-4.0) % Baso % (Auto) (0.0-2.0) % Neut # (1.8-7.0) K/uL Lymph # (1.0-4.3) K/uL [place] # (0.0-0.8) K/uL Eos # (0.0-0.7) K/uL Baso # (0.0-0.2) K/uL Neutrophils % (Manual) (50-75) % Band Neutrophils % (0-2) % Lymphocytes % (Manual) (20-40) % Monocytes % (Manual) Platelet Estimate (NORMAL) Polychromasia Hypochromasia (manual) Anisocytosis (manual) Macrocytosis (manual) Puncture Site pCO2 (35-45) mm/Hg pO2 (80-100) mm/Hg HCO3 (21-28) mmol/L ABG pH (7.35-7.45) ABG Total CO2 (22-28) mmol/L ABG O2 Saturation (95-98) % ABG Base Excess (-2.0-3.0) mmol/L ABG Hemoglobin (11.7-17.4) g/dL ABG Carboxyhemoglobin (0.5-1.5) % POC ABG HHb (Measured) (0.0-5.0) % ABG Methemoglobin (0.0-3.0) % Crescencio Test A-a O2 Difference mm/Hg Respiratory Index Hgb O2 Saturation (95.0-98.0) % Vent Mode Mechanical Rate FiO2 % Tidal Volume PEEP Sodium (132-148) mmol/L Potassium (3.6-5.2) mmol/L Chloride (98-107) mmol/L Carbon Dioxide (22-30) mmol/L Anion Gap (10-20) BUN (7-17) mg/dL Creatinine (0.7-1.2) mg/dL Est GFR ( Amer) Est GFR (Non-Af Amer) POC Glucose (mg/dL) 154 H (65-110) mg/dL Random Glucose (65-105) mg/dL Calcium (8.6-10.4) mg/dl Phosphorus (2.5-4.5) mg/dL Magnesium (1.6-2.3) mg/dL Total Bilirubin (0.2-1.3) mg/dL AST (14-36) U/L ALT (9-52) U/L Alkaline Phosphatase (38-126) U/L Lactate Dehydrogenase (313-618) U/L Total Protein (6.3-8.3) g/dL Albumin (3.5-5.0) g/dL Globulin (2.2-3.9) gm/dL Albumin/Globulin Ratio (1.0-2.1) Stool Occult Blood (NEGATIVE) Blood Type Antibody Screen Antibody Identification Laboratory Results - last 24 hr 04/04/17 04/04/17 04/05/17 17:38 23:34 05:18 WBC RBC Hgb Hct MCV MCH MCHC RDW Plt Count MPV Neut % (Auto) Lymph % (Auto) [place] % (Auto) Eos % (Auto) Baso % (Auto) Neut # Lymph # [place] # Eos # Baso # Neutrophils % (Manual) Band Neutrophils % Lymphocytes % (Manual) Monocytes % (Manual) Platelet Estimate Polychromasia Hypochromasia (manual) Anisocytosis (manual) Macrocytosis (manual) Puncture Site Rb pCO2 31 L pO2 95 HCO3 24.2 ABG pH 7.47 H ABG Total CO2 23.6 ABG O2 Saturation 100.2 H ABG Base Excess -0.9 ABG Hemoglobin 6.9 L ABG Carboxyhemoglobin 2.6 H POC ABG HHb (Measured) -0.2 L ABG Methemoglobin 1.2 Crescencio Test Na A-a O2 Difference 151.0 Respiratory Index 1.6 Hgb O2 Saturation 96.4 Vent Mode Prvc Mechanical Rate 16 FiO2 40.0 Tidal Volume 400 PEEP 5 Sodium Potassium Chloride Carbon Dioxide Anion Gap BUN Creatinine Est GFR ( Amer) Est GFR (Non-Af Amer) POC Glucose (mg/dL) 154 H 161 H Random Glucose Calcium Phosphorus Magnesium Total Bilirubin AST ALT Alkaline Phosphatase Lactate Dehydrogenase Total Protein Albumin Globulin Albumin/Globulin Ratio Stool Occult Blood Blood Type Antibody Screen Antibody Identification 04/05/17 04/05/17 04/05/17 05:47 06:20 06:20 WBC 18.7 H RBC 1.90 L Hgb 6.8 L Hct 20.7 L MCV 108.6 H MCH 35.6 H MCHC 32.7 L RDW 17.3 H Plt Count 16 L* D MPV 8.5 Neut % (Auto) 86.4 H Lymph % (Auto) 9.7 L [place] % (Auto) 2.3 Eos % (Auto) 1.2 Baso % (Auto) 0.4 Neut # 16.1 H Lymph # 1.8 [place] # 0.4 Eos # 0.2 Baso # 0.1 Neutrophils % (Manual) 87 H Band Neutrophils % 1 Lymphocytes % (Manual) 12 L Monocytes % (Manual) TEST NOT PERFORMED Platelet Estimate Markedly decreased L Polychromasia Slight Hypochromasia (manual) Slight Anisocytosis (manual) Slight Macrocytosis (manual) Slight Puncture Site pCO2 pO2 HCO3 ABG pH ABG Total CO2 ABG O2 Saturation ABG Base Excess ABG Hemoglobin ABG Carboxyhemoglobin POC ABG HHb (Measured) ABG Methemoglobin Crescencio Test A-a O2 Difference Respiratory Index Hgb O2 Saturation Vent Mode Mechanical Rate FiO2 Tidal Volume PEEP Sodium 145 Potassium 3.8 Chloride 106 Carbon Dioxide 22 Anion Gap 21 H BUN 71 H Creatinine 1.5 H Est GFR ( Amer) 43 Est GFR (Non-Af Amer) 35 POC Glucose (mg/dL) 169 H Random Glucose 143 H Calcium 9.0 Phosphorus 3.0 Magnesium 1.8 Total Bilirubin 8.0 H AST 28 ALT 46 Alkaline Phosphatase 54 Lactate Dehydrogenase Total Protein 4.6 L Albumin 2.7 L Globulin 1.9 L Albumin/Globulin Ratio 1.4 Stool Occult Blood Blood Type Antibody Screen Antibody Identification 04/05/17 04/05/17 04/05/17 10:43 11:38 14:30 WBC RBC Hgb Hct MCV MCH MCHC RDW Plt Count MPV Neut % (Auto) Lymph % (Auto) [place] % (Auto) Eos % (Auto) Baso % (Auto) Neut # Lymph # [place] # Eos # Baso # Neutrophils % (Manual) Band Neutrophils % Lymphocytes % (Manual) Monocytes % (Manual) Platelet Estimate Polychromasia Hypochromasia (manual) Anisocytosis (manual) Macrocytosis (manual) Puncture Site pCO2 pO2 HCO3 ABG pH ABG Total CO2 ABG O2 Saturation ABG Base Excess ABG Hemoglobin ABG Carboxyhemoglobin POC ABG HHb (Measured) ABG Methemoglobin Crescencio Test A-a O2 Difference Respiratory Index Hgb O2 Saturation Vent Mode Mechanical Rate FiO2 Tidal Volume PEEP Sodium Potassium Chloride Carbon Dioxide Anion Gap BUN Creatinine Est GFR ( Amer) Est GFR (Non-Af Amer) POC Glucose (mg/dL) 148 H Random Glucose Calcium Phosphorus Magnesium Total Bilirubin AST ALT Alkaline Phosphatase Lactate Dehydrogenase Total Protein Albumin Globulin Albumin/Globulin Ratio Stool Occult Blood Positive H Blood Type B POSITIVE Antibody Screen Positive Antibody Identification Cancelled 04/05/17 14:30 WBC RBC Hgb Hct MCV MCH MCHC RDW Plt Count MPV Neut % (Auto) Lymph % (Auto) [place] % (Auto) Eos % (Auto) Baso % (Auto) Neut # Lymph # [place] # Eos # Baso # Neutrophils % (Manual) Band Neutrophils % Lymphocytes % (Manual) Monocytes % (Manual) Platelet Estimate Polychromasia Hypochromasia (manual) Anisocytosis (manual) Macrocytosis (manual) Puncture Site pCO2 pO2 HCO3 ABG pH ABG Total CO2 ABG O2 Saturation ABG Base Excess ABG Hemoglobin ABG Carboxyhemoglobin POC ABG HHb (Measured) ABG Methemoglobin Crescencio Test A-a O2 Difference Respiratory Index Hgb O2 Saturation Vent Mode Mechanical Rate FiO2 Tidal Volume PEEP Sodium Potassium Chloride Carbon Dioxide Anion Gap BUN Creatinine Est GFR ( Amer) Est GFR (Non-Af Amer) POC Glucose (mg/dL) Random Glucose Calcium Phosphorus Magnesium Total Bilirubin AST ALT Alkaline Phosphatase Lactate Dehydrogenase 554 Total Protein Albumin Globulin Albumin/Globulin Ratio Stool Occult Blood Blood Type Antibody Screen Antibody Identification Critical Care Progress Note - Nutrition Nutrition: Nutrition Category Date Time Status Heart Healthy Diet [DIET] Diets 03/17/17 Dinner Active Assessment/Plan (1) Severe sepsis Current Visit: Yes Status: Acute Attending/Attestation - Attestation I have personally seen and examined this patient.: Yes I have fully participated in the care of the patient.: Yes I have reviewed all pertinent clinical information: Yes Notes (Text): 04/05/17 17:40 I have seen and examined the patient. Medical records, lab studies, and imaging were reviewed by me and a management plan was formulated on multidisciplinary rounds with resident Dr. Davis. I agree with their documented assessment and plan. Patient is decompensating again. Recurrent septic shock, source undetermined. Obtaining ultrasound of abdomen r/o acalculous cholecystitis. Patient most likely bleeding with DIC. Transfusing PRBC, followup fibrinogen, may need more cryoprecipitate, DR. Neri - Hem/Onc following. Source of bleeding also undetermined, may need colonoscopy or EGD. Patient is not improving and family discussion needed, with long time boyfriend as he is her only caring family mill representative, regardless of marriage status. Critical Care Time 35 minutes. Multi-disciplinary rounds were performed with house staff, nursing, speech therapy, respiratory therapy, pharmacy and nutrition with integrated input from the primary team/attending and other consulting services. The documented time is cumulative and includes review of patient data/exams/labs/chart review and examination of the patient on rounds and throughout the day; time is exclusive of any procedures or teaching time.
--- NOTE | 2017-04-05 18:11 | PN ---
DATE: LOCATION: ICU 5. SUBJECTIVE: This is a 61-year-old female seen and examined in rounds without significant clinical changes and no reported recent active bleeding. The entire chart is reviewed including, but not limited to the most recent lab and radiology study results, current and the previous medication list, current and the previous medical events. Tolerating oral G-tube feeding process without residual or resistance. Today's lab showed leukocytosis of 18.7, with low hemoglobin 6.8, low hematocrit 20.7 with platelet count again very low of 16, with abnormal ABGs and blood glucose level 148, with BUN 71, creatinine 1.7 with low albumin 2.7, low total protein 4.6 with total bilirubin of 8 which is most likely secondary to starvation and the patient recently had CAT scan of the abdomen, the pelvis as well as ultrasound. Please see reports. PHYSICAL EXAMINATION: GENERAL: A 61-year-old female. VITAL SIGNS: Afebrile with heart rate of 104 and blood pressure 104/66. HEENT: Showed pale, dry oral mucous membrane. Bilateral icteric sclerae. LUNGS: Few scattered crepitation, decreased air entry at bases. HEART: Positive S1 and S2. ABDOMEN: Soft with ascites and mild distention. Bowel sounds are hypoactive. No mass or organomegaly. No rebound tenderness or guarding. EXTREMITIES: Lower extremities with edematous changes. No clubbing or cyanosis. NEUROLOGIC: No new reported neurological deficits. Patient is nonverbal. IMPRESSION: 1. Urinary tract infection. 2. Electrolyte imbalance by history. 3. Severe thrombocytopenia of unclear etiology with anemia. 4. Coagulopathy. 5. Early stage of disseminated intravascular coagulation with poor prognosis. SUGGESTION: 1. Continue current management. 2. Further recommendation to follow and central hyperalimentation to be considered. Wicho Potter MD
--- NOTE | 2017-04-05 18:27 | CP.PCM.PN ---
Subjective - Date & Time of Evaluation Date of Evaluation: 04/05/17 Time of Evaluation: 09:00 - Subjective Subjective: obtunded on vent intubated iv rx in progress Objective - Vital Signs/Intake and Output Vital Signs (last 24 hours): Temp Pulse Resp BP Pulse Ox 98.4 F 108 H 31 H 112/70 96 04/05/17 17:45 04/05/17 18:05 04/05/17 18:05 04/05/17 18:05 04/05/17 18:05 Intake and Output: 04/05/17 04/05/17 06:59 18:59 Intake Total 923.4 753.6 Output Total 780 330 Balance 143.4 423.6 - Medications Medications: Current Medications Albuterol/Ipratropium (Duoneb 3 Mg/0.5 Mg (3 Ml) Ud) 3 ml INH RQ6 [facility] Last Admin: 04/05/17 14:41 Dose: 3 ml Tigecycline 50 mg/ Sodium (Chloride) 100 mls @ 100 mls/hr IVPB Q12H [facility] Last Admin: 04/05/17 18:06 Dose: 100 mls/hr Norepinephrine Bitartrate 8 mg (/ Dextrose) 258 mls @ 7.74 mls/hr IV .Q24H PRN ; Protocol; 4 MCG/MIN PRN Reason: TITRATE PER MD ORDER Last Titration: 04/05/17 12:00 Dose: 5 mcg/min, 9.67 mls/hr Sodium Chloride (Sodium Chloride 0.9%) 1,000 mls @ 100 mls/hr IV .Q10H [place] Last Admin: 04/05/17 12:00 Dose: 100 mls/hr Insulin Aspart (Novolog) 0 unit SC Q6 [place] PRN Reason: Protocol Last Admin: 04/05/17 11:48 Dose: Not Given Pantoprazole Sodium (Protonix Inj) 40 mg IVP Q12H [facility] Last Admin: 04/05/17 09:47 Dose: 40 mg - Labs Labs: 04/05/17 06:20 04/05/17 06:20 PT 25.0 SECONDS (9.7-12.2) H 03/30/17 06:18 INR 2.2 03/30/17 06:18 APTT 67 SECONDS (21-34) H D 03/30/17 06:18 - Constitutional Appears: Non-toxic, Chronically Ill - Head Exam Head Exam: NORMOCEPHALIC - Eye Exam Eye Exam: PERRL. absent: Scleral icterus - ENT Exam ENT Exam: Mucous Membranes Dry - Neck Exam Neck Exam: absent: Lymphadenopathy - Respiratory Exam Respiratory Exam: Decreased Breath Sounds - Cardiovascular Exam Cardiovascular Exam: REGULAR RHYTHM - GI/Abdominal Exam GI & Abdominal Exam: Distended, Soft Assessment and Plan (1) Difficulty urinating Status: Acute (2) Difficulty walking Status: Acute (3) UTI (urinary tract infection) Status: Acute
--- NOTE | 2017-04-05 20:58 | US ---
EXAM: US Abdomen Complete CLINICAL HISTORY: 61 years old, female; Signs and symptoms; Other: Elevated mix bili TECHNIQUE: Real-time ultrasound of the abdomen (complete) with image documentation. COMPARISON: US - IR DRAIN ABD PARACENTESIS 2017-03-23 13:59 FINDINGS: Liver: Lobulated contour. Fatty infiltration. No definite mass. No intrahepatic ductal dilation. Gallbladder: No gallstones. 0.79 cm wall thickness. No sonographic Nicole's sign. Common bile duct: Up to 0.72 cm in diameter. No stones. Pancreas: Unremarkable as visualized. Kidneys: Normal echogenicity. No hydronephrosis. Spleen: No splenomegaly. Aorta: Unremarkable. No aneurysm. Inferior vena cava: Unremarkable. Free fluid: Large amount of free fluid within abdomen. Pleural space: RIGHT pleural effusion. IMPRESSION: 1. Cirrhosis. 2. Gallbladder wall thickening, nonspecific. 3. Mild biliary ductal dilatation. Consider MRCP. 4. Large ascites. 5. Incidental/non-acute findings are described above.
--- NOTE | 2017-04-06 01:26 | CP.PCM.PN ---
Subjective - Date & Time of Evaluation Date of Evaluation: 04/06/17 Time of Evaluation: 14:00 - Subjective Subjective: Vented Objective - Vital Signs/Intake and Output Vital Signs (last 24 hours): Temp Pulse Resp BP Pulse Ox 98.4 F 106 H 33 H 105/61 96 04/05/17 17:45 04/06/17 01:20 04/06/17 01:20 04/06/17 01:21 04/06/17 01:20 Intake and Output: 04/05/17 04/06/17 18:59 06:59 Intake Total 1232.6 508.4 Output Total 330 75 Balance 902.6 433.4 - Medications Medications: Current Medications Albuterol/Ipratropium (Duoneb 3 Mg/0.5 Mg (3 Ml) Ud) 3 ml INH RQ6 [facility] Last Admin: 04/05/17 19:50 Dose: 3 ml Tigecycline 50 mg/ Sodium (Chloride) 100 mls @ 100 mls/hr IVPB Q12H [place] Last Admin: 04/05/17 18:06 Dose: 100 mls/hr Norepinephrine Bitartrate 8 mg (/ Dextrose) 258 mls @ 7.74 mls/hr IV .Q24H PRN ; Protocol; 4 MCG/MIN PRN Reason: TITRATE PER MD ORDER Last Admin: 04/05/17 20:39 Dose: 5 mcg/min, 9.67 mls/hr Sodium Chloride (Sodium Chloride 0.9%) 1,000 mls @ 100 mls/hr IV .Q10H [place] Last Admin: 04/05/17 12:00 Dose: 100 mls/hr Insulin Aspart (Novolog) 0 unit SC Q6 [place] PRN Reason: Protocol Last Admin: 04/05/17 11:48 Dose: Not Given Pantoprazole Sodium (Protonix Inj) 40 mg IVP Q12H [place] Last Admin: 04/05/17 21:32 Dose: 40 mg - Labs Labs: 04/05/17 06:20 04/05/17 06:20 PT 25.0 SECONDS (9.7-12.2) H 03/30/17 06:18 INR 2.2 03/30/17 06:18 APTT 67 SECONDS (21-34) H D 03/30/17 06:18 - Head Exam Head Exam: ATRAUMATIC - Eye Exam Eye Exam: Scleral icterus - ENT Exam ENT Exam: Mucous Membranes Dry - Respiratory Exam Respiratory Exam: Decreased Breath Sounds - Cardiovascular Exam Cardiovascular Exam: +S1, +S2 - GI/Abdominal Exam GI & Abdominal Exam: Normal Bowel Sounds Assessment and Plan (1) DIC (disseminated intravascular coagulation) Assessment & Plan: repeat fibrinogen s/p cryopercipitate treatment of sepsis Status: Acute (2) Thrombocytopenia Assessment & Plan: DIC, liver disease Status: Acute (3) Coagulopathy Assessment & Plan: liver disease and DIC Status: Acute (4) Anemia Assessment & Plan: chronic disease, DIC transfusion support PRN Status: Acute
[2017-04-06] MEDS: Albuterol-Ipratrop 3 mg / 0.5 (3 ml) UD INH SCH ×4 (01:36→20:04)
[2017-04-06 05:33] LABS: ABG MECHANICAL RATE 16; ARTERIAL BLOOD GAS MODE PRVC; ARTERIAL BLOOD HGB O2 SAT 96.5 % (95.0-98.0); ATERIAL BLOOD GAS PEEP 5; CARBOXYHEMOGLOBIN 2.9 % (0.5-1.5); DRAW SITE RB; HHB -0.6 % (0.0-5.0); METHEMOGLOBIN 1.2 % (0.0-3.0)
[2017-04-06] MEDS: (Novolog) Insulin Aspart, Recombinant 100 u/ml 10 ml vial SC SCH ×5 (06:22→18:00)
[2017-04-06] MEDS: Sodium Chloride 0.9% 1,000 ML IV SCH ×3 (06:24→14:56)
[2017-04-06 06:58] LABS: ALB/GLOB RATIO 1.2 (1.0-2.1); BILIRUBIN,TOTAL 10.6 mg/dL (0.2-1.3); CALCIUM 8.8 mg/dl (8.6-10.4); MAGNESIUM 1.6 mg/dL (1.6-2.3); PHOSPHOROUS 2.6 mg/dL (2.5-4.5); POTASSIUM 3.6 mmol/L (3.6-5.2); TOTAL PROTEIN 4.7 g/dL (6.3-8.3)
[2017-04-06 07:14] LABS: HEMATOCRIT 25.2 % (34.0-47.0); MEAN CORPUSCULAR HEMOGLOBIN 34.4 pg (27.0-31.0); MEAN CORPUSCULAR HGB CONC 33.9 g/dL (33.0-37.0); MEAN PLATELET VOLUME 8.7 fL (7.2-11.7); RED CELL DISTRIBUTION WIDTH 20.8 % (11.5-14.5); WHITE BLOOD COUNT 16.1 K/uL (4.8-10.8)
[2017-04-06 07:15] LABS: MEAN CELL VOLUME 101.4 fL (81.0-99.0); PLATELET COUNT 19 K/uL (130-400)
--- NOTE | 2017-04-06 09:48 | RAD ---
HISTORY: intubated COMPARISON: 04/05/2017. FINDINGS: The endotracheal tube terminates 3.8 cm proximal to the gavin. The right IJV line terminates at the cavoatrial junction. LUNGS: There is interval mild improved aeration in the lungs with persistent pulmonary venous congestion and mild interstitial pulmonary edema. Airspace disease in the right lower lobe may represent subsegmental atelectasis. PLEURA: Suspect small pleural effusions, no pneumothorax apparent. CARDIOVASCULAR: Normal. OSSEOUS STRUCTURES: No significant abnormalities. VISUALIZED UPPER ABDOMEN: Normal. OTHER FINDINGS: None. IMPRESSION: Interval mild improved aeration in the lungs. Suspect small pleural effusions.
[2017-04-06 10:03] LABS: EOS # 0.2 K/uL (0.0-0.7); LYMPH # 0.6 K/uL (1.0-4.3); MONO # 0.2 K/uL (0.0-0.8)
[2017-04-06 10:11] LABS: EOSINOPHIL 2 % (0-4); NEUTROPHIL 83 % (50-75); NUCLEATED RED BLOOD CELL 1 % (0-0); TOTAL CELLS COUNTED 100
[2017-04-06] MEDS: Multiple Vitamins Tab PO SCH (10:32)
[2017-04-06] MEDS: Thiamine 100 mg/ml Inj IV SCH ×3 (10:40→21:45)
[2017-04-06] MEDS: Albumin Human 25% (12.5 gm/50 ml) IV SCH ×3 (11:12→21:42)
--- NOTE | 2017-04-06 14:41 | CP.PCM.PN ---
Subjective - Date & Time of Evaluation Date of Evaluation: 04/06/17 Time of Evaluation: 14:18 - Subjective Subjective: Patient is intubated and unresponsive Objective - Vital Signs/Intake and Output Vital Signs (last 24 hours): Temp Pulse Resp BP Pulse Ox 100.1 F H 111 H 32 H 97/59 L 97 04/06/17 04:00 04/06/17 08:00 04/06/17 08:00 04/06/17 07:51 04/06/17 08:00 Intake and Output: 04/06/17 04/06/17 06:59 18:59 Intake Total 1545.6 54.4 Output Total 285 60 Balance 1260.6 -5.6 - Medications Medications: Current Medications Albumin Human (Albumin Human 25% (12.5 Gm/50 Ml)) 12.5 gm IV Q6H [facility] Stop: 04/07/17 04:16 Last Admin: 04/06/17 11:12 Dose: 12.5 gm Albuterol/Ipratropium (Duoneb 3 Mg/0.5 Mg (3 Ml) Ud) 3 ml INH RQ6 [facility] Last Admin: 04/06/17 08:03 Dose: 3 ml Ascorbic Acid (Vitamin C 500 Mg Tab) 1,500 mg NG Q6H [facility] Last Admin: 04/06/17 10:43 Dose: 1,500 mg Famotidine (Pepcid) 20 mg PO BID [facility] Hydrocortisone Sodium Succinate (Solu-Cortef) 100 mg IV Q8H [facility] Tigecycline 50 mg/ Sodium (Chloride) 100 mls @ 100 mls/hr IVPB Q12H [facility] Last Admin: 04/06/17 06:26 Dose: 100 mls/hr Norepinephrine Bitartrate 8 mg (/ Dextrose) 258 mls @ 7.74 mls/hr IV .Q24H PRN ; Protocol; 4 MCG/MIN PRN Reason: TITRATE PER MD ORDER Last Admin: 04/05/17 20:39 Dose: 5 mcg/min, 9.67 mls/hr Sodium Chloride (Sodium Chloride 0.9%) 1,000 mls @ 100 mls/hr IV .Q10H [facility] Last Admin: 04/06/17 06:24 Dose: 100 mls/hr Insulin Aspart (Novolog) 0 unit SC Q6 [facility] PRN Reason: Protocol Last Admin: 04/06/17 12:40 Dose: Not Given Multivitamins (Hexavitamin) 1 tab PO DAILY [facility] Last Admin: 04/06/17 10:32 Dose: 1 tab Thiamine HCl (Vitamin B1 Inj) 200 mg IV Q8 [facility] Stop: 04/09/17 22:01 Last Admin: 04/06/17 10:40 Dose: 200 mg Zinc Sulfate (Zinc Sulfate 220 Mg Cap) 220 mg PO DAILY [facility] Last Admin: 04/06/17 10:33 Dose: 220 mg - Labs Labs: 04/06/17 06:21 04/06/17 06:21 PT 25.0 SECONDS (9.7-12.2) H 03/30/17 06:18 INR 2.2 03/30/17 06:18 APTT 67 SECONDS (21-34) H D 03/30/17 06:18 - Constitutional Appears: In Acute Distress, Chronically Ill - Head Exam Head Exam: ATRAUMATIC, NORMAL INSPECTION, NORMOCEPHALIC - Eye Exam Eye Exam: Normal appearance - ENT Exam ENT Exam: Mucous Membranes Dry Additional comments: ETT - Neck Exam Neck Exam: Normal Inspection - Respiratory Exam Additional comments: On MV support - Cardiovascular Exam Cardiovascular Exam: Tachycardia - GI/Abdominal Exam GI & Abdominal Exam: Hyperactive Bowel Sounds - Rectal Exam Rectal Exam: Deferred - Extremities Exam Extremities Exam: Pedal Edema - Back Exam Back Exam: NORMAL INSPECTION - Neurological Exam Neurological Exam: Motor Sensory Deficit Neuro motor strength exam: Left Upper Extremity: 0, Right Upper Extremity: 0, Left Lower Extremity: 0, Right Lower Extremity: 0 - Psychiatric Exam Psychiatric exam: Flat Affect - Skin Skin Exam: Pallor Assessment and Plan - Assessment and Plan (Free Text) Assessment: Palliative progress note Patient seen and examined in bed looking chronically ill. Skin is pale, Hb 8.5. Plt chung up to 19 from 9.0. Patient is on 40 % O2 via MV. The physical exam remains the same. Family meeting held attended by patient's boyfriend of 29 years, Mr. Lizy Lopes and his nephew Lizy Shannon. patient's clinical presentation and most recent test results and interventions reviewed. Family's awareness of patient's condition and expectations elicited. Mr. Lopes, who is sick him self with recent CVA and now in [facility], is very emotional when goals of care discussed. he is aware that patient is very sick, but growvs high hope of recovery, frequently asking how much chances patient had to fully recover. Moses's nephew Shiva , is very supportive of him, and Mr. Lopes relays heavily on him for support. Family was reassured of prudent care provided to the patient, and also presented with complex medical Hx and life style, that may influence the patient 's response to the treatment. Mr. Lopes and his nephew stated understanding. After long and detailed discussion, family made it clear, that if patient's condition worsened and she become dependent of [facility], they would want to consider promotion of natural . Code status discussed. POLST and DNR/DNI meaning reviewed. Family choose DNR/ DNI. I assisted with completing the POLST and copy given to Mr. Lizy Lopes. This was shared with Dr. Solorzano the analysis analyst and nursing. Order for DNR/DNI entered. Impression * This is a very sick patient with complex clinical presentation and very poor chances for meaningful recovery * Family meeting hld where family advocated for comfort primarily * If condition worsened, family is open for discussion about terminal extubation * Family choose DNR/DNI Suggestions * Agree with DNR/DNI * Keep family updated I will fallow up on goals of care based on patient's performance. slot machine key person as of now is Lizy shannon, the nephew [phone]
--- NOTE | 2017-04-06 15:06 | CP.PCM.PN ---
Subjective - Date & Time of Evaluation Date of Evaluation: 04/06/17 Time of Evaluation: 15:05 - Subjective Subjective: Follow up Nephrology Consultation: Assessment: critical acute kidney injury with oliguria, lactic acidosis, severe thrombocytopenia, septic shock, ARDS all leading to acute tubular necrosis: recurred DIC respi failure with bilateral pneumonia Hyponatremia likely due to cirrhosis: improved Hypomagnesemia, Hypokalemia, Anemia diabetes Mellitus hypertension, ex smoker, chronic etoh abuse and chronic pancreatitis UTI, back pain Plan no acute need for renal replacement therapy (HEDDLER TIER) at this time. considering her overall poor prognosis (advanced liver failure, DIC, sepsis/shock, SARIKA); HEDDLER TIER is unlikely to change her outcome even when needed. palliative care evaluation noted. discussions ongoing. holding diuretics to hypotension PRBC as needed for anemia. Monitor Input/Output, daily weights and renal function with basic metabolic panel Glycemic control Further work up/management as per primary team dose meds for reduced GFR. Avoid fleets enema/magnesium based laxatives. Avoid nephrotoxins/NSAIDs/ iodinated contrast (unless needed emergently) Further work up for as per primary team Thanks for allowing me to participate in care of your patient. Please call if any Qs. Dr Jaya Flynn Office: [phone] Chief Complaint; unable Reason for consult: hyponatremia, SARIKA HPI: Pt is a 61 y/o F with hx of diabetes Mellitus hypertension, ex smoker, chronic etoh abuse and chronic pancreatitis initially presented with complaints of dysuria and being treated with antibiotics for UTI. she was getting D5/0.45% saline and noted to have decreased serum Na to 124 hence renal consult requested pt remains intubated and back on pressors. BP low again. low UOP. s/p cryo and plat transfusion s/p PRBC Physical Examination: General Appearance: ill appearing, intubated orally Vitals reviewed and noted as below Head; Atraumatic, normocephalic ENT: orally intubated Neck; supple no lymphadenopathy, no thyromegaly or bruit Lungs: increase respiratory rate/effort. Breath sounds bilateral with rales Heart: Increased rate. s1s2 normal. No rub or gallop. Extremities: 3+ edema with anasarca. No varicose veins Neurological: Patient is non communicative Skin: Warm and dry. Normal turgor. No rash. Palpitation: Normal elasticity for age Abdomen: Abdomen is soft. Bowel sounds +. There is no abdominal tenderness, no guarding/rigidity no organomegaly has ascites Psych: unable MSK: no joint tenderness or swelling. Digits and nails normal, no deformity : kidney or bladder not palpable. has duong + Labs/imaging/EKG reviewed. Past medical history, past surgical history, family history, social history, allergy reviewed and noted as below Family hx: no hx of CKD. Rest non-contributory recent echo: normal LVEF CT abdomen: chronic pancreatitis, liver disease, increased echogenic kidneys. has compression fractures in vertebra Objective - Vital Signs/Intake and Output Vital Signs (last 24 hours): Temp Pulse Resp BP Pulse Ox 100.1 F H 111 H 32 H 97/59 L 97 04/06/17 04:00 04/06/17 08:00 04/06/17 08:00 04/06/17 07:51 04/06/17 08:00 Intake and Output: 04/06/17 04/06/17 06:59 18:59 Intake Total 1545.6 54.4 Output Total 285 60 Balance 1260.6 -5.6 - Medications Medications: Current Medications Albumin Human (Albumin Human 25% (12.5 Gm/50 Ml)) 12.5 gm IV Q6H [facility] Stop: 04/07/17 04:16 Last Admin: 04/06/17 11:12 Dose: 12.5 gm Albuterol/Ipratropium (Duoneb 3 Mg/0.5 Mg (3 Ml) Ud) 3 ml INH RQ6 [facility] Last Admin: 04/06/17 08:03 Dose: 3 ml Ascorbic Acid (Vitamin C 500 Mg Tab) 1,500 mg NG Q6H [facility] Last Admin: 04/06/17 10:43 Dose: 1,500 mg Famotidine (Pepcid) 20 mg PO BID [facility] Hydrocortisone Sodium Succinate (Solu-Cortef) 100 mg IV Q8H [facility] Tigecycline 50 mg/ Sodium (Chloride) 100 mls @ 100 mls/hr IVPB Q12H [facility] Last Admin: 04/06/17 06:26 Dose: 100 mls/hr Norepinephrine Bitartrate 8 mg (/ Dextrose) 258 mls @ 7.74 mls/hr IV .Q24H PRN ; Protocol; 4 MCG/MIN PRN Reason: TITRATE PER MD ORDER Last Admin: 04/05/17 20:39 Dose: 5 mcg/min, 9.67 mls/hr Sodium Chloride (Sodium Chloride 0.9%) 1,000 mls @ 100 mls/hr IV .Q10H [facility] Last Admin: 04/06/17 14:56 Dose: 100 mls/hr Insulin Aspart (Novolog) 0 unit SC Q6 [facility] PRN Reason: Protocol Last Admin: 04/06/17 12:40 Dose: Not Given Multivitamins (Hexavitamin) 1 tab PO DAILY [facility] Last Admin: 04/06/17 10:32 Dose: 1 tab Thiamine HCl (Vitamin B1 Inj) 200 mg IV Q8 [facility] Stop: 04/09/17 22:01 Last Admin: 04/06/17 15:04 Dose: 200 mg Zinc Sulfate (Zinc Sulfate 220 Mg Cap) 220 mg PO DAILY [facility] Last Admin: 04/06/17 10:33 Dose: 220 mg - Labs Labs: 04/06/17 06:21 04/06/17 06:21 PT 25.0 SECONDS (9.7-12.2) H 03/30/17 06:18 INR 2.2 03/30/17 06:18 APTT 67 SECONDS (21-34) H D 03/30/17 06:18
--- NOTE | 2017-04-06 16:08 | CP.CCUPN ---
<Mic Sanches - Last Filed: 04/06/17 15:47> CCU Subjective - Physician Review Subjective (Free Text): PGY1 ICU Progress Note for Dr. Caitie Solorzano Patient seen and examined at bedside this morning. Patient intubated. Patient is not currently on any sedation. ROS unobtainable. CCU Objective - Vital Signs / Intake & Output Intake and Output (Last 8hrs): Intake & Output 04/06/17 04/06/17 04/06/17 06:59 14:59 22:59 Intake Total 1146.8 54.4 Output Total 225 60 Balance 921.8 -5.6 Intake: Intake, IV Amount 876.8 9.4 Right Medial Port 76.8 9.4 Internal Jugular Right Proximal Port 800 Internal Jugular Tube Feeding 270 45 Output: Urine 125 60 Urethral (Gusman) 125 60 Stool 100 - Physical Exam Head: Positive for: Atraumatic, Normocephalic Pupils: Positive for: PERRL Extroacular Muscles: Positive for: Other (gaze down and to right) Mouth: Positive for: Moist Mucous Membranes, Other (intubated) Neck: Positive for: Normal Range of Motion Respiratory/Chest: Positive for: Rales, Rhonchi, Other (restarted on levophed drip due to hypotension). Negative for: Accessory Muscle Use Cardiovascular: Positive for: Regular Rate and Rhythm Abdomen: Positive for: Distention, Normal Bowel Sounds, Other (tympanic to percussion. healing petechiae rash in center of abdomen ). Negative for: Tenderness Upper Extremity: Positive for: Other (multiple areas of ecchymosis at various stages of healing) Lower Extremity: Positive for: Edema, Other (multiple areas of ecchymosis at various stages of healing) Neurological: Positive for: Other (intubated. Not responsive on no sedation. ) Skin: Positive for: Warm, Dry. Negative for: Normal Color (appears yellowish) Psychiatric: Positive for: Other (intubated) - Medications Active Medications: Active Medications Generic Name Dose Route Start Last Admin Trade Name Freq PRN Reason Stop Dose Admin Albumin Human 12.5 gm 04/06/17 10:15 04/06/17 11:12 Albumin Human 25% (12.5 Gm/50 Ml) IV 04/07/17 04:16 12.5 gm Q6H [place] Administration Albuterol/Ipratropium 3 ml 03/30/17 14:00 04/06/17 15:07 Duoneb 3 Mg/0.5 Mg (3 Ml) Ud INH 3 ml RQ6 [place] Administration Ascorbic Acid 1,500 mg 04/06/17 10:00 04/06/17 15:08 Vitamin C 500 Mg Tab NG 1,500 mg Q6H [place] Administration Famotidine 20 mg 04/06/17 18:00 Pepcid PO BID [place] Hydrocortisone Sodium Succinate 100 mg 04/06/17 16:00 Solu-Cortef IV Q8H [place] Tigecycline 50 mg/ Sodium 100 mls @ 100 mls/hr 03/30/17 07:00 04/06/17 06:26 Chloride IVPB 100 mls/hr Q12H [place] Administration Norepinephrine Bitartrate 8 mg 258 mls @ 7.74 mls/hr 04/04/17 09:31 04/05/17 20:39 / Dextrose IV 5 mcg/min .Q24H PRN 9.67 mls/hr TITRATE PER MD ORDER Administration Protocol 4 MCG/MIN Sodium Chloride 1,000 mls @ 100 mls/hr 04/05/17 09:00 04/06/17 14:56 Sodium Chloride 0.9% IV 100 mls/hr .Q10H [place] Administration Insulin Aspart 0 unit 03/28/17 12:00 04/06/17 12:40 Novolog SC Not Given Q6 [facility] Protocol Multivitamins 1 tab 04/06/17 10:00 04/06/17 10:32 Hexavitamin PO 1 tab DAILY [place] Administration Thiamine HCl 200 mg 04/06/17 08:15 04/06/17 15:04 Vitamin B1 Inj IV 04/09/17 22:01 200 mg Q8 [place] Administration Zinc Sulfate 220 mg 04/06/17 10:00 04/06/17 10:33 Zinc Sulfate 220 Mg Cap PO 220 mg DAILY [place] Administration - Patient Studies Lab Studies: Microbiology Studies 04/05/17 08:00 Urine Culture - Final Urine,Catheterized Yeast Species 04/05/17 08:30 Blood Culture - Preliminary Blood-Thru Central Line NO GROWTH AFTER 24 HOURS 04/05/17 10:00 Blood Culture - Preliminary Blood-Thru Central Line NO GROWTH AFTER 24 HOURS Lab Studies 04/06/17 04/06/17 04/06/17 Range/Units 11:37 06:21 06:21 WBC (4.8-10.8) K/uL RBC (3.80-5.20) Mil/uL Hgb (11.0-16.0) g/dL Hct (34.0-47.0) % MCV (81.0-99.0) fL MCH (27.0-31.0) pg MCHC (33.0-37.0) g/dL RDW (11.5-14.5) % Plt Count (130-400) K/uL MPV (7.2-11.7) fL Neut % (Auto) (50.0-75.0) % Lymph % (Auto) (20.0-40.0) % [place] % (Auto) (0.0-10.0) % Eos % (Auto) (0.0-4.0) % Baso % (Auto) (0.0-2.0) % Neut # (1.8-7.0) K/uL Lymph # (1.0-4.3) K/uL [place] # (0.0-0.8) K/uL Eos # (0.0-0.7) K/uL Baso # (0.0-0.2) K/uL Neutrophils % (Manual) (50-75) % Band Neutrophils % (0-2) % Lymphocytes % (Manual) (20-40) % Monocytes % (Manual) (0-10) % Eosinophils % (Manual) (0-4) % Nucleated RBC % (0-0) % Toxic Granulation Dohle Bodies Platelet Estimate (NORMAL) Anisocytosis (manual) Macrocytosis (manual) Haptoglobin (43-212) mg/dL Fibrinogen 130 L (200-400) mg/dL Puncture Site pCO2 (35-45) mm/Hg pO2 (80-100) mm/Hg HCO3 (21-28) mmol/L ABG pH (7.35-7.45) ABG Total CO2 (22-28) mmol/L ABG O2 Saturation (95-98) % ABG Base Excess (-2.0-3.0) mmol/L ABG Hemoglobin (11.7-17.4) g/dL ABG Carboxyhemoglobin (0.5-1.5) % POC ABG HHb (Measured) (0.0-5.0) % ABG Methemoglobin (0.0-3.0) % Crescencio Test A-a O2 Difference mm/Hg Respiratory Index Hgb O2 Saturation (95.0-98.0) % Vent Mode Mechanical Rate FiO2 % Tidal Volume PEEP Sodium 147 (132-148) mmol/L Potassium 3.6 (3.6-5.2) mmol/L Chloride 109 H (98-107) mmol/L Carbon Dioxide 23 (22-30) mmol/L Anion Gap 19 (10-20) BUN 78 H (7-17) mg/dL Creatinine 1.4 H (0.7-1.2) mg/dL Est GFR ( Amer) 46 Est GFR (Non-Af Amer) 38 POC Glucose (mg/dL) 136 H (65-110) mg/dL Random Glucose 113 H (65-105) mg/dL Calcium 8.8 (8.6-10.4) mg/dl Phosphorus 2.6 (2.5-4.5) mg/dL Magnesium 1.6 (1.6-2.3) mg/dL Total Bilirubin 10.6 H (0.2-1.3) mg/dL AST 33 (14-36) U/L ALT 48 (9-52) U/L Alkaline Phosphatase 55 (38-126) U/L Total Protein 4.7 L (6.3-8.3) g/dL Albumin 2.6 L (3.5-5.0) g/dL Globulin 2.1 L (2.2-3.9) gm/dL Albumin/Globulin Ratio 1.2 (1.0-2.1) 04/06/17 04/06/17 04/06/17 Range/Units 06:21 05:53 05:20 WBC 16.1 H (4.8-10.8) K/uL RBC 2.48 L (3.80-5.20) Mil/uL Hgb 8.5 L (11.0-16.0) g/dL Hct 25.2 L (34.0-47.0) % MCV 101.4 H D (81.0-99.0) fL MCH 34.4 H (27.0-31.0) pg MCHC 33.9 (33.0-37.0) g/dL RDW 20.8 H (11.5-14.5) % Plt Count 19 L* (130-400) K/uL MPV 8.7 (7.2-11.7) fL Neut % (Auto) 94.0 H (50.0-75.0) % Lymph % (Auto) 4.0 L (20.0-40.0) % [place] % (Auto) 1.0 (0.0-10.0) % Eos % (Auto) 1.0 (0.0-4.0) % Baso % (Auto) 0.0 (0.0-2.0) % Neut # 15.1 H (1.8-7.0) K/uL Lymph # 0.6 L (1.0-4.3) K/uL [place] # 0.2 (0.0-0.8) K/uL Eos # 0.2 (0.0-0.7) K/uL Baso # 0.0 (0.0-0.2) K/uL Neutrophils % (Manual) 83 H (50-75) % Band Neutrophils % 6 H (0-2) % Lymphocytes % (Manual) 6 L (20-40) % Monocytes % (Manual) 3 (0-10) % Eosinophils % (Manual) 2 (0-4) % Nucleated RBC % 1 H (0-0) % Toxic Granulation Present Dohle Bodies Present Platelet Estimate Markedly decreased L (NORMAL) Anisocytosis (manual) Moderate Macrocytosis (manual) Moderate Haptoglobin (43-212) mg/dL Fibrinogen (200-400) mg/dL Puncture Site Rb pCO2 26 L (35-45) mm/Hg pO2 92 (80-100) mm/Hg HCO3 25.0 (21-28) mmol/L ABG pH 7.54 H (7.35-7.45) ABG Total CO2 23.0 (22-28) mmol/L ABG O2 Saturation 100.6 H (95-98) % ABG Base Excess 0.1 (-2.0-3.0) mmol/L ABG Hemoglobin 8.3 L (11.7-17.4) g/dL ABG Carboxyhemoglobin 2.9 H (0.5-1.5) % POC ABG HHb (Measured) -0.6 L (0.0-5.0) % ABG Methemoglobin 1.2 (0.0-3.0) % Crescencio Test Na A-a O2 Difference 161.0 mm/Hg Respiratory Index 1.8 Hgb O2 Saturation 96.5 (95.0-98.0) % Vent Mode Prvc Mechanical Rate 16 FiO2 40.0 % Tidal Volume 400 PEEP 5 Sodium (132-148) mmol/L Potassium (3.6-5.2) mmol/L Chloride (98-107) mmol/L Carbon Dioxide (22-30) mmol/L Anion Gap (10-20) BUN (7-17) mg/dL Creatinine (0.7-1.2) mg/dL Est GFR ( Amer) Est GFR (Non-Af Amer) POC Glucose (mg/dL) 135 H (65-110) mg/dL Random Glucose (65-105) mg/dL Calcium (8.6-10.4) mg/dl Phosphorus (2.5-4.5) mg/dL Magnesium (1.6-2.3) mg/dL Total Bilirubin (0.2-1.3) mg/dL AST (14-36) U/L ALT (9-52) U/L Alkaline Phosphatase (38-126) U/L Total Protein (6.3-8.3) g/dL Albumin (3.5-5.0) g/dL Globulin (2.2-3.9) gm/dL Albumin/Globulin Ratio (1.0-2.1) 04/06/17 04/05/17 04/05/17 Range/Units 00:00 19:19 17:44 WBC (4.8-10.8) K/uL RBC (3.80-5.20) Mil/uL Hgb (11.0-16.0) g/dL Hct (34.0-47.0) % MCV (81.0-99.0) fL MCH (27.0-31.0) pg MCHC (33.0-37.0) g/dL RDW (11.5-14.5) % Plt Count (130-400) K/uL MPV (7.2-11.7) fL Neut % (Auto) (50.0-75.0) % Lymph % (Auto) (20.0-40.0) % [place] % (Auto) (0.0-10.0) % Eos % (Auto) (0.0-4.0) % Baso % (Auto) (0.0-2.0) % Neut # (1.8-7.0) K/uL Lymph # (1.0-4.3) K/uL [place] # (0.0-0.8) K/uL Eos # (0.0-0.7) K/uL Baso # (0.0-0.2) K/uL Neutrophils % (Manual) (50-75) % Band Neutrophils % (0-2) % Lymphocytes % (Manual) (20-40) % Monocytes % (Manual) (0-10) % Eosinophils % (Manual) (0-4) % Nucleated RBC % (0-0) % Toxic Granulation Dohle Bodies Platelet Estimate (NORMAL) Anisocytosis (manual) Macrocytosis (manual) Haptoglobin (43-212) mg/dL Fibrinogen (200-400) mg/dL Puncture Site pCO2 (35-45) mm/Hg pO2 (80-100) mm/Hg HCO3 (21-28) mmol/L ABG pH (7.35-7.45) ABG Total CO2 (22-28) mmol/L ABG O2 Saturation (95-98) % ABG Base Excess (-2.0-3.0) mmol/L ABG Hemoglobin (11.7-17.4) g/dL ABG Carboxyhemoglobin (0.5-1.5) % POC ABG HHb (Measured) (0.0-5.0) % ABG Methemoglobin (0.0-3.0) % Crescencio Test A-a O2 Difference mm/Hg Respiratory Index Hgb O2 Saturation (95.0-98.0) % Vent Mode Mechanical Rate FiO2 % Tidal Volume PEEP Sodium (132-148) mmol/L Potassium (3.6-5.2) mmol/L Chloride (98-107) mmol/L Carbon Dioxide (22-30) mmol/L Anion Gap (10-20) BUN (7-17) mg/dL Creatinine (0.7-1.2) mg/dL Est GFR ( Amer) Est GFR (Non-Af Amer) POC Glucose (mg/dL) 118 H 75 130 H (65-110) mg/dL Random Glucose (65-105) mg/dL Calcium (8.6-10.4) mg/dl Phosphorus (2.5-4.5) mg/dL Magnesium (1.6-2.3) mg/dL Total Bilirubin (0.2-1.3) mg/dL AST (14-36) U/L ALT (9-52) U/L Alkaline Phosphatase (38-126) U/L Total Protein (6.3-8.3) g/dL Albumin (3.5-5.0) g/dL Globulin (2.2-3.9) gm/dL Albumin/Globulin Ratio (1.0-2.1) 04/05/17 Range/Units 14:30 WBC (4.8-10.8) K/uL RBC (3.80-5.20) Mil/uL Hgb (11.0-16.0) g/dL Hct (34.0-47.0) % MCV (81.0-99.0) fL MCH (27.0-31.0) pg MCHC (33.0-37.0) g/dL RDW (11.5-14.5) % Plt Count (130-400) K/uL MPV (7.2-11.7) fL Neut % (Auto) (50.0-75.0) % Lymph % (Auto) (20.0-40.0) % [place] % (Auto) (0.0-10.0) % Eos % (Auto) (0.0-4.0) % Baso % (Auto) (0.0-2.0) % Neut # (1.8-7.0) K/uL Lymph # (1.0-4.3) K/uL [place] # (0.0-0.8) K/uL Eos # (0.0-0.7) K/uL Baso # (0.0-0.2) K/uL Neutrophils % (Manual) (50-75) % Band Neutrophils % (0-2) % Lymphocytes % (Manual) (20-40) % Monocytes % (Manual) (0-10) % Eosinophils % (Manual) (0-4) % Nucleated RBC % (0-0) % Toxic Granulation Dohle Bodies Platelet Estimate (NORMAL) Anisocytosis (manual) Macrocytosis (manual) Haptoglobin 29 L (43-212) mg/dL Fibrinogen (200-400) mg/dL Puncture Site pCO2 (35-45) mm/Hg pO2 (80-100) mm/Hg HCO3 (21-28) mmol/L ABG pH (7.35-7.45) ABG Total CO2 (22-28) mmol/L ABG O2 Saturation (95-98) % ABG Base Excess (-2.0-3.0) mmol/L ABG Hemoglobin (11.7-17.4) g/dL ABG Carboxyhemoglobin (0.5-1.5) % POC ABG HHb (Measured) (0.0-5.0) % ABG Methemoglobin (0.0-3.0) % Crescencio Test A-a O2 Difference mm/Hg Respiratory Index Hgb O2 Saturation (95.0-98.0) % Vent Mode Mechanical Rate FiO2 % Tidal Volume PEEP Sodium (132-148) mmol/L Potassium (3.6-5.2) mmol/L Chloride (98-107) mmol/L Carbon Dioxide (22-30) mmol/L Anion Gap (10-20) BUN (7-17) mg/dL Creatinine (0.7-1.2) mg/dL Est GFR ( Amer) Est GFR (Non-Af Amer) POC Glucose (mg/dL) (65-110) mg/dL Random Glucose (65-105) mg/dL Calcium (8.6-10.4) mg/dl Phosphorus (2.5-4.5) mg/dL Magnesium (1.6-2.3) mg/dL Total Bilirubin (0.2-1.3) mg/dL AST (14-36) U/L ALT (9-52) U/L Alkaline Phosphatase (38-126) U/L Total Protein (6.3-8.3) g/dL Albumin (3.5-5.0) g/dL Globulin (2.2-3.9) gm/dL Albumin/Globulin Ratio (1.0-2.1) Laboratory Results - last 24 hr 04/05/17 04/05/17 04/05/17 14:30 17:44 19:19 WBC RBC Hgb Hct MCV MCH MCHC RDW Plt Count MPV Neut % (Auto) Lymph % (Auto) P[place] % (Auto) Eos % (Auto) Baso % (Auto) Neut # Lymph # [place] # Eos # Baso # Neutrophils % (Manual) Band Neutrophils % Lymphocytes % (Manual) Monocytes % (Manual) Eosinophils % (Manual) Nucleated RBC % Toxic Granulation Dohle Bodies Platelet Estimate Anisocytosis (manual) Macrocytosis (manual) Haptoglobin 29 L Fibrinogen Puncture Site pCO2 pO2 HCO3 ABG pH ABG Total CO2 ABG O2 Saturation ABG Base Excess ABG Hemoglobin ABG Carboxyhemoglobin POC ABG HHb (Measured) ABG Methemoglobin Crescencio Test A-a O2 Difference Respiratory Index Hgb O2 Saturation Vent Mode Mechanical Rate FiO2 Tidal Volume PEEP Sodium Potassium Chloride Carbon Dioxide Anion Gap BUN Creatinine Est GFR ( Amer) Est GFR (Non-Af Amer) POC Glucose (mg/dL) 130 H 75 Random Glucose Calcium Phosphorus Magnesium Total Bilirubin AST ALT Alkaline Phosphatase Total Protein Albumin Globulin Albumin/Globulin Ratio 04/06/17 04/06/17 04/06/17 00:00 05:20 05:53 WBC RBC Hgb Hct MCV MCH MCHC RDW Plt Count MPV Neut % (Auto) Lymph % (Auto) [place] % (Auto) Eos % (Auto) Baso % (Auto) Neut # Lymph # [place] # Eos # Baso # Neutrophils % (Manual) Band Neutrophils % Lymphocytes % (Manual) Monocytes % (Manual) Eosinophils % (Manual) Nucleated RBC % Toxic Granulation Dohle Bodies Platelet Estimate Anisocytosis (manual) Macrocytosis (manual) Haptoglobin Fibrinogen Puncture Site Rb pCO2 26 L pO2 92 HCO3 25.0 ABG pH 7.54 H ABG Total CO2 23.0 ABG O2 Saturation 100.6 H ABG Base Excess 0.1 ABG Hemoglobin 8.3 L ABG Carboxyhemoglobin 2.9 H POC ABG HHb (Measured) -0.6 L ABG Methemoglobin 1.2 Crescencio Test Na A-a O2 Difference 161.0 Respiratory Index 1.8 Hgb O2 Saturation 96.5 Vent Mode Prvc Mechanical Rate 16 FiO2 40.0 Tidal Volume 400 PEEP 5 Sodium Potassium Chloride Carbon Dioxide Anion Gap BUN Creatinine Est GFR ( Amer) Est GFR (Non-Af Amer) POC Glucose (mg/dL) 118 H 135 H Random Glucose Calcium Phosphorus Magnesium Total Bilirubin AST ALT Alkaline Phosphatase Total Protein Albumin Globulin Albumin/Globulin Ratio 04/06/17 04/06/17 04/06/17 06:21 06:21 06:21 WBC 16.1 H RBC 2.48 L Hgb 8.5 L Hct 25.2 L MCV 101.4 H D MCH 34.4 H MCHC 33.9 RDW 20.8 H Plt Count 19 L* MPV 8.7 Neut % (Auto) 94.0 H Lymph % (Auto) 4.0 L [place] % (Auto) 1.0 Eos % (Auto) 1.0 Baso % (Auto) 0.0 Neut # 15.1 H Lymph # 0.6 L [place] # 0.2 Eos # 0.2 Baso # 0.0 Neutrophils % (Manual) 83 H Band Neutrophils % 6 H Lymphocytes % (Manual) 6 L Monocytes % (Manual) 3 Eosinophils % (Manual) 2 Nucleated RBC % 1 H Toxic Granulation Present Dohle Bodies Present Platelet Estimate Markedly decreased L Anisocytosis (manual) Moderate Macrocytosis (manual) Moderate Haptoglobin Fibrinogen 130 L Puncture Site pCO2 pO2 HCO3 ABG pH ABG Total CO2 ABG O2 Saturation ABG Base Excess ABG Hemoglobin ABG Carboxyhemoglobin POC ABG HHb (Measured) ABG Methemoglobin Crescencio Test A-a O2 Difference Respiratory Index Hgb O2 Saturation Vent Mode Mechanical Rate FiO2 Tidal Volume PEEP Sodium 147 Potassium 3.6 Chloride 109 H Carbon Dioxide 23 Anion Gap 19 BUN 78 H Creatinine 1.4 H Est GFR ( Amer) 46 Est GFR (Non-Af Amer) 38 POC Glucose (mg/dL) Random Glucose 113 H Calcium 8.8 Phosphorus 2.6 Magnesium 1.6 Total Bilirubin 10.6 H AST 33 ALT 48 Alkaline Phosphatase 55 Total Protein 4.7 L Albumin 2.6 L Globulin 2.1 L Albumin/Globulin Ratio 1.2 04/06/17 11:37 WBC RBC Hgb Hct MCV MCH MCHC RDW Plt Count MPV Neut % (Auto) Lymph % (Auto) [place] % (Auto) Eos % (Auto) Baso % (Auto) Neut # Lymph # [place] # Eos # Baso # Neutrophils % (Manual) Band Neutrophils % Lymphocytes % (Manual) Monocytes % (Manual) Eosinophils % (Manual) Nucleated RBC % Toxic Granulation Dohle Bodies Platelet Estimate Anisocytosis (manual) Macrocytosis (manual) Haptoglobin Fibrinogen Puncture Site pCO2 pO2 HCO3 ABG pH ABG Total CO2 ABG O2 Saturation ABG Base Excess ABG Hemoglobin ABG Carboxyhemoglobin POC ABG HHb (Measured) ABG Methemoglobin Crescencio Test A-a O2 Difference Respiratory Index Hgb O2 Saturation Vent Mode Mechanical Rate FiO2 Tidal Volume PEEP Sodium Potassium Chloride Carbon Dioxide Anion Gap BUN Creatinine Est GFR ( Amer) Est GFR (Non-Af Amer) POC Glucose (mg/dL) 136 H Random Glucose Calcium Phosphorus Magnesium Total Bilirubin AST ALT Alkaline Phosphatase Total Protein Albumin Globulin Albumin/Globulin Ratio Fingerstick Blood Sugar Results: 136 Review of Systems - Review of Systems Systems not reviewed;Unavailable: Intubated Critical Care Progress Note - Nutrition Nutrition: Nutrition Category Date Time Status Heart Healthy Diet [DIET] Diets 03/17/17 Dinner Active Assessment/Plan - Assessment and Plan (Free Text) Assessment: Patient is a 61 year old female with increasing respiratory distress most likely 2/2 ARDS vs pulmonary edema. Septic Shock from UTI. Plan: Respiratory: Intubated ARDS improving RLL Pneumonia CXR 04/05 - Interval mild improved aeration in the lungs. Suspect small pleural effusions ABG - pCO2 26/pO2 92/HCO3 25/pH 7.54 - vent settings 400/40/16/5 - Changed to CPAP + PS 04/03 - Please titrate FiO2 to keep ox sat >92% Duoneb 3mL INH q6h : Septic Shock Dr. Mejia consulted Dr. Dos Santos consulted WBC decreased to 18.7 from 24.5 - Bands 1 (yesterday 5) - procalcitonin (04/04) - 11.35 - repeat blood culture (04/05) - negative at 24 hours - repeat urine culture (04/05) - positive for yeast - Started on Diflucan 200mg IVPB daily ESBL E. Coli in urine culture (03/17). repeat urine culture (03/26) - Proteus Mirabilis - on Tigecycline 50mg IVPB q12h (started on 03/30) Repeat urine 04/27 - no growth Repeat blood cultures(03/30) - no growth at 5 days Trachasp culture 03/30 - no growth CV: Hypotension - sepsis vs hypovolemia NS @ 100ml/hr Levophed drip Hydrocortisone 300mg IV once; then 100mg IV q8h Vitamin C 1500mg PO q6h GI: Stool occult positive Albumin 2.6 - transfused Albumin 25% x 4 bags Hem: Dr. Neri consulted, help appreciated Hgb decreased to 6.8 from 8.0 - transfused 2 units of pRBC (patient found to be antibody positive) Platelets 19 - patient transfused 1 unit of platelets Fibrinogen 130 - patient transfused 5 units (10 units of cryoprecipitate on 04/03 and 5 units on 03/28) - if Fibrinogen falls below 100, transfuse another 5 units - continue to monitor T.Bili increased to 10.6 from 8.0 - direct bili 5.6 (04/04) LDH - 554 haptoglobin - Nephrology: Dr. Roe consulted, help appreciated - Dr. Flynn actively covering case Cr worsening 1.5 from 1.4 Strict I's and O's Endo: ISS Electrolytes: Mag 1.6 Phos 2.6 Prophylactic Care: Pepcid and SCDs No anticoagulation due to GI bleed Palliative Care consult - patient's condition is worsening, poor prognosis. - Patient made DNR/DNI by Lizy Lopes, boyfriend of 29 years, per Palliative note. Case discussed with Dr. Lupe Haile Verónica PGY1 <Darcie Solorzano - Last Filed: 04/06/17 18:11> CCU Subjective - Physician Review Critical Care Time Spent (in minutes): 40 CCU Objective - Vital Signs / Intake & Output Vital Signs (Last 4 hours): Vital Signs Pulse Resp BP Pulse Ox 04/06/17 17:00 109 H 29 H 97 04/06/17 16:46 109 H 29 H 94/65 L 04/06/17 16:16 108 H 31 H 98/66 L 04/06/17 16:00 107 H 32 H 96 04/06/17 15:46 107 H 32 H 102/62 96 04/06/17 15:16 107 H 32 H 103/61 96 04/06/17 15:00 105 H 29 H 98 04/06/17 14:46 103 H 29 H 100/61 99 04/06/17 14:16 102 H 30 H 94/56 L 04/06/17 14:00 102 H 31 H 98/56 L 97 Intake and Output (Last 8hrs): Intake & Output 04/06/17 04/06/17 04/06/17 06:59 14:59 22:59 Intake Total 1146.8 54.4 Output Total 225 60 Balance 921.8 -5.6 Intake: Intake, IV Amount 876.8 9.4 Right Medial Port 76.8 9.4 Internal Jugular Right Proximal Port 800 Internal Jugular Tube Feeding 270 45 Output: Urine 125 60 Urethral ([place]man) 125 60 Stool 100 - Medications Active Medications: Active Medications Generic Name Dose Route Start Last Admin Trade Name Freq PRN Reason Stop Dose Admin Albumin Human 12.5 gm 04/06/17 10:15 04/06/17 17:15 Albumin Human 25% (12.5 Gm/50 Ml) IV 04/07/17 04:16 12.5 gm Q6H [place] Administration Albuterol/Ipratropium 3 ml 03/30/17 14:00 04/06/17 15:07 Duoneb 3 Mg/0.5 Mg (3 Ml) Ud INH 3 ml RQ6 [place] Administration Ascorbic Acid 1,500 mg 04/06/17 10:00 04/06/17 15:08 Vitamin C 500 Mg Tab NG 1,500 mg Q6H [place] Administration Famotidine 20 mg 04/06/17 18:00 Pepcid PO BID [place] Hydrocortisone Sodium Succinate 100 mg 04/06/17 16:00 04/06/17 17:00 Solu-Cortef IV 100 mg Q8H [place] Administration Tigecycline 50 mg/ Sodium 100 mls @ 100 mls/hr 03/30/17 07:00 04/06/17 06:26 Chloride IVPB 100 mls/hr Q12H [place] Administration Norepinephrine Bitartrate 8 mg 258 mls @ 7.74 mls/hr 04/04/17 09:31 04/05/17 20:39 / Dextrose IV 5 mcg/min .Q24H PRN 9.67 mls/hr TITRATE PER MD ORDER Administration Protocol 4 MCG/MIN Sodium Chloride 1,000 mls @ 100 mls/hr 04/05/17 09:00 04/06/17 14:56 Sodium Chloride 0.9% IV 100 mls/hr .Q10H [place] Administration Fluconazole 100 mls @ 100 mls/hr 04/06/17 16:15 Diflucan Iv 200 Mg/100 Ml Ns IVPB DAILY [place] Insulin Aspart 0 unit 03/28/17 12:00 04/06/17 17:45 Novolog SC 1 unit Q6 [place] Administration Protocol Multivitamins 1 tab 04/06/17 10:00 04/06/17 10:32 Hexavitamin PO 1 tab DAILY [place] Administration Thiamine HCl 200 mg 04/06/17 08:15 04/06/17 15:04 Vitamin B1 Inj IV 04/09/17 22:01 200 mg Q8 [place] Administration Zinc Sulfate 220 mg 04/06/17 10:00 04/06/17 10:33 Zinc Sulfate 220 Mg Cap PO 220 mg DAILY [place] Administration - Patient Studies Lab Studies: Microbiology Studies 04/05/17 08:00 Urine Culture - Final Urine,Catheterized Yeast Species 04/05/17 08:30 Blood Culture - Preliminary Blood-Thru Central Line NO GROWTH AFTER 24 HOURS 04/05/17 10:00 Blood Culture - Preliminary Blood-Thru Central Line NO GROWTH AFTER 24 HOURS Lab Studies 04/06/17 04/06/17 04/06/17 Range/Units 17:28 11:37 06:21 WBC (4.8-10.8) K/uL RBC (3.80-5.20) Mil/uL Hgb (11.0-16.0) g/dL Hct (34.0-47.0) % MCV (81.0-99.0) fL MCH (27.0-31.0) pg MCHC (33.0-37.0) g/dL RDW (11.5-14.5) % Plt Count (130-400) K/uL MPV (7.2-11.7) fL Neut % (Auto) (50.0-75.0) % Lymph % (Auto) (20.0-40.0) % [place] % (Auto) (0.0-10.0) % Eos % (Auto) (0.0-4.0) % Baso % (Auto) (0.0-2.0) % Neut # (1.8-7.0) K/uL Lymph # (1.0-4.3) K/uL [place] # (0.0-0.8) K/uL Eos # (0.0-0.7) K/uL Baso # (0.0-0.2) K/uL Neutrophils % (Manual) (50-75) % Band Neutrophils % (0-2) % Lymphocytes % (Manual) (20-40) % Monocytes % (Manual) (0-10) % Eosinophils % (Manual) (0-4) % Nucleated RBC % (0-0) % Toxic Granulation Dohle Bodies Platelet Estimate (NORMAL) Anisocytosis (manual) Macrocytosis (manual) Haptoglobin (43-212) mg/dL Fibrinogen (200-400) mg/dL Puncture Site pCO2 (35-45) mm/Hg pO2 (80-100) mm/Hg HCO3 (21-28) mmol/L ABG pH (7.35-7.45) ABG Total CO2 (22-28) mmol/L ABG O2 Saturation (95-98) % ABG Base Excess (-2.0-3.0) mmol/L ABG Hemoglobin (11.7-17.4) g/dL ABG Carboxyhemoglobin (0.5-1.5) % POC ABG HHb (Measured) (0.0-5.0) % ABG Methemoglobin (0.0-3.0) % Crescencio Test A-a O2 Difference mm/Hg Respiratory Index Hgb O2 Saturation (95.0-98.0) % Vent Mode Mechanical Rate FiO2 % Tidal Volume PEEP Sodium 147 (132-148) mmol/L Potassium 3.6 (3.6-5.2) mmol/L Chloride 109 H (98-107) mmol/L Carbon Dioxide 23 (22-30) mmol/L Anion Gap 19 (10-20) BUN 78 H (7-17) mg/dL Creatinine 1.4 H (0.7-1.2) mg/dL Est GFR ( Amer) 46 Est GFR (Non-Af Amer) 38 POC Glucose (mg/dL) 189 H 136 H (65-110) mg/dL Random Glucose 113 H (65-105) mg/dL Calcium 8.8 (8.6-10.4) mg/dl Phosphorus 2.6 (2.5-4.5) mg/dL Magnesium 1.6 (1.6-2.3) mg/dL Total Bilirubin 10.6 H (0.2-1.3) mg/dL AST 33 (14-36) U/L ALT 48 (9-52) U/L Alkaline Phosphatase 55 (38-126) U/L Total Protein 4.7 L (6.3-8.3) g/dL Albumin 2.6 L (3.5-5.0) g/dL Globulin 2.1 L (2.2-3.9) gm/dL Albumin/Globulin Ratio 1.2 (1.0-2.1) 04/06/17 04/06/17 04/06/17 Range/Units 06:21 06:21 05:53 WBC 16.1 H (4.8-10.8) K/uL RBC 2.48 L (3.80-5.20) Mil/uL Hgb 8.5 L (11.0-16.0) g/dL Hct 25.2 L (34.0-47.0) % MCV 101.4 H D (81.0-99.0) fL MCH 34.4 H (27.0-31.0) pg MCHC 33.9 (33.0-37.0) g/dL RDW 20.8 H (11.5-14.5) % Plt Count 19 L* (130-400) K/uL MPV 8.7 (7.2-11.7) fL Neut % (Auto) 94.0 H (50.0-75.0) % Lymph % (Auto) 4.0 L (20.0-40.0) % [place] % (Auto) 1.0 (0.0-10.0) % Eos % (Auto) 1.0 (0.0-4.0) % Baso % (Auto) 0.0 (0.0-2.0) % Neut # 15.1 H (1.8-7.0) K/uL Lymph # 0.6 L (1.0-4.3) K/uL [place] # 0.2 (0.0-0.8) K/uL Eos # 0.2 (0.0-0.7) K/uL Baso # 0.0 (0.0-0.2) K/uL Neutrophils % (Manual) 83 H (50-75) % Band Neutrophils % 6 H (0-2) % Lymphocytes % (Manual) 6 L (20-40) % Monocytes % (Manual) 3 (0-10) % Eosinophils % (Manual) 2 (0-4) % Nucleated RBC % 1 H (0-0) % Toxic Granulation Present Dohle Bodies Present Platelet Estimate Markedly decreased L (NORMAL) Anisocytosis (manual) Moderate Macrocytosis (manual) Moderate Haptoglobin (43-212) mg/dL Fibrinogen 130 L (200-400) mg/dL Puncture Site pCO2 (35-45) mm/Hg pO2 (80-100) mm/Hg HCO3 (21-28) mmol/L ABG pH (7.35-7.45) ABG Total CO2 (22-28) mmol/L ABG O2 Saturation (95-98) % ABG Base Excess (-2.0-3.0) mmol/L ABG Hemoglobin (11.7-17.4) g/dL ABG Carboxyhemoglobin (0.5-1.5) % POC ABG HHb (Measured) (0.0-5.0) % ABG Methemoglobin (0.0-3.0) % Crescencio Test A-a O2 Difference mm/Hg Respiratory Index Hgb O2 Saturation (95.0-98.0) % Vent Mode Mechanical Rate FiO2 % Tidal Volume PEEP Sodium (132-148) mmol/L Potassium (3.6-5.2) mmol/L Chloride (98-107) mmol/L Carbon Dioxide (22-30) mmol/L Anion Gap (10-20) BUN (7-17) mg/dL Creatinine (0.7-1.2) mg/dL Est GFR ( Amer) Est GFR (Non-Af Amer) POC Glucose (mg/dL) 135 H (65-110) mg/dL Random Glucose (65-105) mg/dL Calcium (8.6-10.4) mg/dl Phosphorus (2.5-4.5) mg/dL Magnesium (1.6-2.3) mg/dL Total Bilirubin (0.2-1.3) mg/dL AST (14-36) U/L ALT (9-52) U/L Alkaline Phosphatase (38-126) U/L Total Protein (6.3-8.3) g/dL Albumin (3.5-5.0) g/dL Globulin (2.2-3.9) gm/dL Albumin/Globulin Ratio (1.0-2.1) 04/06/17 04/06/17 04/05/17 Range/Units 05:20 00:00 19:19 WBC (4.8-10.8) K/uL RBC (3.80-5.20) Mil/uL Hgb (11.0-16.0) g/dL Hct (34.0-47.0) % MCV (81.0-99.0) fL MCH (27.0-31.0) pg MCHC (33.0-37.0) g/dL RDW (11.5-14.5) % Plt Count (130-400) K/uL MPV (7.2-11.7) fL Neut % (Auto) (50.0-75.0) % Lymph % (Auto) (20.0-40.0) % [place] % (Auto) (0.0-10.0) % Eos % (Auto) (0.0-4.0) % Baso % (Auto) (0.0-2.0) % Neut # (1.8-7.0) K/uL Lymph # (1.0-4.3) K/uL [place] # (0.0-0.8) K/uL Eos # (0.0-0.7) K/uL Baso # (0.0-0.2) K/uL Neutrophils % (Manual) (50-75) % Band Neutrophils % (0-2) % Lymphocytes % (Manual) (20-40) % Monocytes % (Manual) (0-10) % Eosinophils % (Manual) (0-4) % Nucleated RBC % (0-0) % Toxic Granulation Dohle Bodies Platelet Estimate (NORMAL) Anisocytosis (manual) Macrocytosis (manual) Haptoglobin (43-212) mg/dL Fibrinogen (200-400) mg/dL Puncture Site Rb pCO2 26 L (35-45) mm/Hg pO2 92 (80-100) mm/Hg HCO3 25.0 (21-28) mmol/L ABG pH 7.54 H (7.35-7.45) ABG Total CO2 23.0 (22-28) mmol/L ABG O2 Saturation 100.6 H (95-98) % ABG Base Excess 0.1 (-2.0-3.0) mmol/L ABG Hemoglobin 8.3 L (11.7-17.4) g/dL ABG Carboxyhemoglobin 2.9 H (0.5-1.5) % POC ABG HHb (Measured) -0.6 L (0.0-5.0) % ABG Methemoglobin 1.2 (0.0-3.0) % Crescencio Test Na A-a O2 Difference 161.0 mm/Hg Respiratory Index 1.8 Hgb O2 Saturation 96.5 (95.0-98.0) % Vent Mode Prvc Mechanical Rate 16 FiO2 40.0 % Tidal Volume 400 PEEP 5 Sodium (132-148) mmol/L Potassium (3.6-5.2) mmol/L Chloride (98-107) mmol/L Carbon Dioxide (22-30) mmol/L Anion Gap (10-20) BUN (7-17) mg/dL Creatinine (0.7-1.2) mg/dL Est GFR ( Amer) Est GFR (Non-Af Amer) POC Glucose (mg/dL) 118 H 75 (65-110) mg/dL Random Glucose (65-105) mg/dL Calcium (8.6-10.4) mg/dl Phosphorus (2.5-4.5) mg/dL Magnesium (1.6-2.3) mg/dL Total Bilirubin (0.2-1.3) mg/dL AST (14-36) U/L ALT (9-52) U/L Alkaline Phosphatase (38-126) U/L Total Protein (6.3-8.3) g/dL Albumin (3.5-5.0) g/dL Globulin (2.2-3.9) gm/dL Albumin/Globulin Ratio (1.0-2.1) 04/05/17 Range/Units 14:30 WBC (4.8-10.8) K/uL RBC (3.80-5.20) Mil/uL Hgb (11.0-16.0) g/dL Hct (34.0-47.0) % MCV (81.0-99.0) fL MCH (27.0-31.0) pg MCHC (33.0-37.0) g/dL RDW (11.5-14.5) % Plt Count (130-400) K/uL MPV (7.2-11.7) fL Neut % (Auto) (50.0-75.0) % Lymph % (Auto) (20.0-40.0) % [place] % (Auto) (0.0-10.0) % Eos % (Auto) (0.0-4.0) % Baso % (Auto) (0.0-2.0) % Neut # (1.8-7.0) K/uL Lymph # (1.0-4.3) K/uL [place] # (0.0-0.8) K/uL Eos # (0.0-0.7) K/uL Baso # (0.0-0.2) K/uL Neutrophils % (Manual) (50-75) % Band Neutrophils % (0-2) % Lymphocytes % (Manual) (20-40) % Monocytes % (Manual) (0-10) % Eosinophils % (Manual) (0-4) % Nucleated RBC % (0-0) % Toxic Granulation Dohle Bodies Platelet Estimate (NORMAL) Anisocytosis (manual) Macrocytosis (manual) Haptoglobin 29 L (43-212) mg/dL Fibrinogen (200-400) mg/dL Puncture Site pCO2 (35-45) mm/Hg pO2 (80-100) mm/Hg HCO3 (21-28) mmol/L ABG pH (7.35-7.45) ABG Total CO2 (22-28) mmol/L ABG O2 Saturation (95-98) % ABG Base Excess (-2.0-3.0) mmol/L ABG Hemoglobin (11.7-17.4) g/dL ABG Carboxyhemoglobin (0.5-1.5) % POC ABG HHb (Measured) (0.0-5.0) % ABG Methemoglobin (0.0-3.0) % Crescencio Test A-a O2 Difference mm/Hg Respiratory Index Hgb O2 Saturation (95.0-98.0) % Vent Mode Mechanical Rate FiO2 % Tidal Volume PEEP Sodium (132-148) mmol/L Potassium (3.6-5.2) mmol/L Chloride (98-107) mmol/L Carbon Dioxide (22-30) mmol/L Anion Gap (10-20) BUN (7-17) mg/dL Creatinine (0.7-1.2) mg/dL Est GFR ( Amer) Est GFR (Non-Af Amer) POC Glucose (mg/dL) (65-110) mg/dL Random Glucose (65-105) mg/dL Calcium (8.6-10.4) mg/dl Phosphorus (2.5-4.5) mg/dL Magnesium (1.6-2.3) mg/dL Total Bilirubin (0.2-1.3) mg/dL AST (14-36) U/L ALT (9-52) U/L Alkaline Phosphatase (38-126) U/L Total Protein (6.3-8.3) g/dL Albumin (3.5-5.0) g/dL Globulin (2.2-3.9) gm/dL Albumin/Globulin Ratio (1.0-2.1) Laboratory Results - last 24 hr 04/05/17 04/05/17 04/06/17 14:30 19:19 00:00 WBC RBC Hgb Hct MCV MCH MCHC RDW Plt Count MPV Neut % (Auto) Lymph % (Auto) [place] % (Auto) Eos % (Auto) Baso % (Auto) Neut # Lymph # [place] # Eos # Baso # Neutrophils % (Manual) Band Neutrophils % Lymphocytes % (Manual) Monocytes % (Manual) Eosinophils % (Manual) Nucleated RBC % Toxic Granulation Dohle Bodies Platelet Estimate Anisocytosis (manual) Macrocytosis (manual) Haptoglobin 29 L Fibrinogen Puncture Site pCO2 pO2 HCO3 ABG pH ABG Total CO2 ABG O2 Saturation ABG Base Excess ABG Hemoglobin ABG Carboxyhemoglobin POC ABG HHb (Measured) ABG Methemoglobin Crescencio Test A-a O2 Difference Respiratory Index Hgb O2 Saturation Vent Mode Mechanical Rate FiO2 Tidal Volume PEEP Sodium Potassium Chloride Carbon Dioxide Anion Gap BUN Creatinine Est GFR ( Amer) Est GFR (Non-Af Amer) POC Glucose (mg/dL) 75 118 H Random Glucose Calcium Phosphorus Magnesium Total Bilirubin AST ALT Alkaline Phosphatase Total Protein Albumin Globulin Albumin/Globulin Ratio 04/06/17 04/06/17 04/06/17 05:20 05:53 06:21 WBC 16.1 H RBC 2.48 L Hgb 8.5 L Hct 25.2 L MCV 101.4 H D MCH 34.4 H MCHC 33.9 RDW 20.8 H Plt Count 19 L* MPV 8.7 Neut % (Auto) 94.0 H Lymph % (Auto) 4.0 L [place] % (Auto) 1.0 Eos % (Auto) 1.0 Baso % (Auto) 0.0 Neut # 15.1 H Lymph # 0.6 L [place] # 0.2 Eos # 0.2 Baso # 0.0 Neutrophils % (Manual) 83 H Band Neutrophils % 6 H Lymphocytes % (Manual) 6 L Monocytes % (Manual) 3 Eosinophils % (Manual) 2 Nucleated RBC % 1 H Toxic Granulation Present Dohle Bodies Present Platelet Estimate Markedly decreased L Anisocytosis (manual) Moderate Macrocytosis (manual) Moderate Haptoglobin Fibrinogen Puncture Site Rb pCO2 26 L pO2 92 HCO3 25.0 ABG pH 7.54 H ABG Total CO2 23.0 ABG O2 Saturation 100.6 H ABG Base Excess 0.1 ABG Hemoglobin 8.3 L ABG Carboxyhemoglobin 2.9 H POC ABG HHb (Measured) -0.6 L ABG Methemoglobin 1.2 Crescencio Test Na A-a O2 Difference 161.0 Respiratory Index 1.8 Hgb O2 Saturation 96.5 Vent Mode Prvc Mechanical Rate 16 FiO2 40.0 Tidal Volume 400 PEEP 5 Sodium Potassium Chloride Carbon Dioxide Anion Gap BUN Creatinine Est GFR ( Amer) Est GFR (Non-Af Amer) POC Glucose (mg/dL) 135 H Random Glucose Calcium Phosphorus Magnesium Total Bilirubin AST ALT Alkaline Phosphatase Total Protein Albumin Globulin Albumin/Globulin Ratio 04/06/17 04/06/17 04/06/17 06:21 06:21 11:37 WBC RBC Hgb Hct MCV MCH MCHC RDW Plt Count MPV Neut % (Auto) Lymph % (Auto) [place] % (Auto) Eos % (Auto) Baso % (Auto) Neut # Lymph # [place] # Eos # Baso # Neutrophils % (Manual) Band Neutrophils % Lymphocytes % (Manual) Monocytes % (Manual) Eosinophils % (Manual) Nucleated RBC % Toxic Granulation Dohle Bodies Platelet Estimate Anisocytosis (manual) Macrocytosis (manual) Haptoglobin Fibrinogen 130 L Puncture Site pCO2 pO2 HCO3 ABG pH ABG Total CO2 ABG O2 Saturation ABG Base Excess ABG Hemoglobin ABG Carboxyhemoglobin POC ABG HHb (Measured) ABG Methemoglobin Crescencio Test A-a O2 Difference Respiratory Index Hgb O2 Saturation Vent Mode Mechanical Rate FiO2 Tidal Volume PEEP Sodium 147 Potassium 3.6 Chloride 109 H Carbon Dioxide 23 Anion Gap 19 BUN 78 H Creatinine 1.4 H Est GFR ( Amer) 46 Est GFR (Non-Af Amer) 38 POC Glucose (mg/dL) 136 H Random Glucose 113 H Calcium 8.8 Phosphorus 2.6 Magnesium 1.6 Total Bilirubin 10.6 H AST 33 ALT 48 Alkaline Phosphatase 55 Total Protein 4.7 L Albumin 2.6 L Globulin 2.1 L Albumin/Globulin Ratio 1.2 04/06/17 17:28 WBC RBC Hgb Hct MCV MCH MCHC RDW Plt Count MPV Neut % (Auto) Lymph % (Auto) [place] % (Auto) Eos % (Auto) Baso % (Auto) Neut # Lymph # [place] # Eos # Baso # Neutrophils % (Manual) Band Neutrophils % Lymphocytes % (Manual) Monocytes % (Manual) Eosinophils % (Manual) Nucleated RBC % Toxic Granulation Dohle Bodies Platelet Estimate Anisocytosis (manual) Macrocytosis (manual) Haptoglobin Fibrinogen Puncture Site pCO2 pO2 HCO3 ABG pH ABG Total CO2 ABG O2 Saturation ABG Base Excess ABG Hemoglobin ABG Carboxyhemoglobin POC ABG HHb (Measured) ABG Methemoglobin Crescencio Test A-a O2 Difference Respiratory Index Hgb O2 Saturation Vent Mode Mechanical Rate FiO2 Tidal Volume PEEP Sodium Potassium Chloride Carbon Dioxide Anion Gap BUN Creatinine Est GFR ( Amer) Est GFR (Non-Af Amer) POC Glucose (mg/dL) 189 H Random Glucose Calcium Phosphorus Magnesium Total Bilirubin AST ALT Alkaline Phosphatase Total Protein Albumin Globulin Albumin/Globulin Ratio Critical Care Progress Note - Nutrition Nutrition: Nutrition Category Date Time Status Heart Healthy Diet [DIET] Diets 03/17/17 Dinner Active Assessment/Plan - Assessment and Plan (Free Text) Plan: Above note reviewed and verified. Patient seen and examined at bedside. Patient not on sedation. vitals reviewed. not able to provide any history pupils reactive JVD neg b/l air entry (+)S1 (+)S2 abd:soft, distende LE edmea 3+ edema -Shock: combination of septic + hypovolemic; serial lactic, source control, ID follow to broaden abx add antifungal -continue pressors to keep MAP >65 -montor urine output -DIC;keep fibrinogen >100 and platelets >10, monitor for bleeding -severe malnutrition: continue ng tube feeds, add with prostat -Thrombocytopenia: suspect DIC realted versus medication versus sepsis, continue to monitor, change protonix to pepcid -decubititus care as per protocol: add MVi, vitamin C and zinc sulfate -continue DVT/PUX ppx Prognosis poor cc time 40 minutes dw nursing/social media developer and other multidisciplinary staff - Date & Time Date: 04/06/17 Time: 18:11
[2017-04-06] MEDS: Fluconazole IV 200mg/100 ml NS 100 ML IVPB SCH (18:15)
[2017-04-06 20:13] LABS: BASO # 0.1 K/uL (0.0-0.2); BASO % 0.5 % (0.0-2.0); LYMPH # 1.3 K/uL (1.0-4.3); LYMPH % 7.3 % (20.0-40.0); MEAN CELL VOLUME 103.9 fL (81.0-99.0); MEAN CORPUSCULAR HEMOGLOBIN 34.7 pg (27.0-31.0); MEAN CORPUSCULAR HGB CONC 33.4 g/dL (33.0-37.0); MEAN PLATELET VOLUME 10.8 fL (7.2-11.7); MONO # 0.2 K/uL (0.0-0.8); MONO % 1.4 % (0.0-10.0); NRBC % 0.2 % (0.0-2.0); RED CELL DISTRIBUTION WIDTH 21.6 % (11.5-14.5); WHITE BLOOD COUNT 17.5 K/uL (4.8-10.8)
[2017-04-06 20:20] LABS: PLATELET COUNT 3 K/uL (130-400)
[2017-04-06 21:29] LABS: TOTAL CELLS COUNTED 100
[2017-04-06 21:31] LABS: NEUTROPHIL 92 % (50-75)
[2017-04-06 21:54] LABS: ABG ALLEN TEST POS; ABG MECHANICAL RATE 16; ARTERIAL BLOOD GAS MODE PRVC; ATERIAL BLOOD GAS PEEP 5; DRAW SITE RRADIAL
--- NOTE | 2017-04-06 22:32 | CP.PCM.PN ---
Subjective - Date & Time of Evaluation Date of Evaluation: 04/06/17 Time of Evaluation: 18:50 - Subjective Subjective: Vented Objective - Vital Signs/Intake and Output Vital Signs (last 24 hours): Temp Pulse Resp BP Pulse Ox 99.5 F 94 H 22 88/58 L 99 04/06/17 16:00 04/06/17 21:00 04/06/17 21:00 04/06/17 20:46 04/06/17 21:00 Intake and Output: 04/06/17 04/07/17 18:59 06:59 Intake Total 1634.4 372.5 Output Total 410 30 Balance 1224.4 342.5 - Medications Medications: Current Medications Albumin Human (Albumin Human 25% (12.5 Gm/50 Ml)) 12.5 gm IV Q6H [facility] Stop: 04/07/17 04:16 Last Admin: 04/06/17 21:42 Dose: 12.5 gm Albuterol/Ipratropium (Duoneb 3 Mg/0.5 Mg (3 Ml) Ud) 3 ml INH RQ6 [place] Last Admin: 04/06/17 20:04 Dose: 3 ml Ascorbic Acid (Vitamin C 500 Mg Tab) 1,500 mg NG Q6H [place] Last Admin: 04/06/17 21:42 Dose: 1,500 mg Famotidine (Pepcid) 20 mg PO BID [facility] Last Admin: 04/06/17 17:56 Dose: 20 mg Hydrocortisone Sodium Succinate (Solu-Cortef) 100 mg IV Q8H [place] Last Admin: 04/06/17 17:00 Dose: 100 mg Tigecycline 50 mg/ Sodium (Chloride) 100 mls @ 100 mls/hr IVPB Q12H [facility] Last Admin: 04/06/17 18:01 Dose: 100 mls/hr Norepinephrine Bitartrate 8 mg (/ Dextrose) 258 mls @ 7.74 mls/hr IV .Q24H PRN ; Protocol; 4 MCG/MIN PRN Reason: TITRATE PER MD ORDER Last Admin: 04/05/17 20:39 Dose: 5 mcg/min, 9.67 mls/hr Sodium Chloride (Sodium Chloride 0.9%) 1,000 mls @ 100 mls/hr IV .Q10H [facility] Last Admin: 04/06/17 14:56 Dose: 100 mls/hr Fluconazole (Diflucan Iv 200 Mg/100 Ml Ns) 100 mls @ 100 mls/hr IVPB DAILY [facility] Last Admin: 04/06/17 18:15 Dose: 100 mls/hr Insulin Aspart (Novolog) 0 unit SC Q6 [facility] PRN Reason: Protocol Last Admin: 04/06/17 18:00 Dose: 1 unit Multivitamins (Hexavitamin) 1 tab PO DAILY [facility] Last Admin: 04/06/17 10:32 Dose: 1 tab Thiamine HCl (Vitamin B1 Inj) 200 mg IV Q8 [facility] Stop: 04/09/17 22:01 Last Admin: 04/06/17 21:45 Dose: 200 mg Zinc Sulfate (Zinc Sulfate 220 Mg Cap) 220 mg PO DAILY [facility] Last Admin: 04/06/17 10:33 Dose: 220 mg - Labs Labs: 04/06/17 20:06 04/06/17 06:21 PT 25.0 SECONDS (9.7-12.2) H 03/30/17 06:18 INR 2.2 03/30/17 06:18 APTT 67 SECONDS (21-34) H D 03/30/17 06:18 - Head Exam Head Exam: ATRAUMATIC - Eye Exam Eye Exam: Normal appearance - ENT Exam ENT Exam: Mucous Membranes Dry - Respiratory Exam Respiratory Exam: NORMAL BREATHING PATTERN - Cardiovascular Exam Cardiovascular Exam: +S2 - GI/Abdominal Exam GI & Abdominal Exam: Normal Bowel Sounds Assessment and Plan (1) DIC (disseminated intravascular coagulation) Assessment & Plan: secondary to septic shock s/p cryopercipitate on antibiotics Status: Acute (2) Thrombocytopenia Assessment & Plan: secondary to DIC transfuse plt if < 10,000 Status: Acute (3) Coagulopathy Assessment & Plan: DIC nutritional component Status: Acute (4) Anemia Assessment & Plan: chronic disease, DIC Status: Acute
[2017-04-07] MEDS: (Novolog) Insulin Aspart, Recombinant 100 u/ml 10 ml vial SC SCH ×4 (00:27→18:20)
[2017-04-07] MEDS: Albuterol-Ipratrop 3 mg / 0.5 (3 ml) UD INH SCH ×4 (01:08→19:20)
[2017-04-07] MEDS: Sodium Chloride 0.9% 1,000 ML IV SCH (03:23)
[2017-04-07] MEDS: Albumin Human 25% (12.5 gm/50 ml) IV SCH ×3 (03:29→19:51)
[2017-04-07 05:41] LABS: ABG MECHANICAL RATE 16; ARTERIAL BLOOD GAS MODE PRVC; ARTERIAL BLOOD HGB O2 SAT 97.2 % (95.0-98.0); ATERIAL BLOOD GAS PEEP 5; CARBOXYHEMOGLOBIN 1.9 % (0.5-1.5); DRAW SITE RB; HHB -0.1 % (0.0-5.0)
[2017-04-07] MEDS: Thiamine 100 mg/ml Inj IV SCH ×3 (05:57→21:51)
[2017-04-07 07:12] LABS: BASO # 0.1 K/uL (0.0-0.2); BASO % 0.4 % (0.0-2.0); EOS % 0.1 % (0.0-4.0); HEMATOCRIT 20.5 % (34.0-47.0); LYMPH # 1.2 K/uL (1.0-4.3); MEAN CELL VOLUME 106.8 fL (81.0-99.0); MEAN CORPUSCULAR HEMOGLOBIN 34.3 pg (27.0-31.0); MEAN CORPUSCULAR HGB CONC 32.1 g/dL (33.0-37.0); MEAN PLATELET VOLUME 12.1 fL (7.2-11.7); MONO # 0.3 K/uL (0.0-0.8); MONO % 1.9 % (0.0-10.0); NRBC % 0.5 % (0.0-2.0); RED CELL DISTRIBUTION WIDTH 22.3 % (11.5-14.5); WHITE BLOOD COUNT 17.5 K/uL (4.8-10.8)
[2017-04-07 07:18] LABS: ALB/GLOB RATIO 1.6 (1.0-2.1); CALCIUM 8.7 mg/dl (8.6-10.4); MAGNESIUM 1.7 mg/dL (1.6-2.3); PHOSPHOROUS 4.1 mg/dL (2.5-4.5); POTASSIUM 4.4 mmol/L (3.6-5.2); TOTAL PROTEIN 4.5 g/dL (6.3-8.3)
[2017-04-07 07:36] LABS: PLATELET COUNT 3 K/uL (130-400)
--- NOTE | 2017-04-07 07:54 | RAD ---
HISTORY: acute change in respirations COMPARISON: Comparison is made to 04/06/2017 FINDINGS: LUNGS: Interval [id number] worsening of patchy opacities and reticulonodular opacities in the lungs especially right lower lobe since the previous exam. The ET tube is seen at appropriate position. PLEURA: There is blunting of the right costophrenic angle suggestive of small pleural effusion. CARDIOVASCULAR: Normal. OSSEOUS STRUCTURES: No significant abnormalities. VISUALIZED UPPER ABDOMEN: The NG tube seen extending to the stomach OTHER FINDINGS: Right jugular central line is seen in place. IMPRESSION: Interval [id number] worsening of opacities in the lungs since the previous study. Appropriate position of the support devices. Blunting of the right costophrenic angle could be due to small pleural effusion.
[2017-04-07] MEDS ORDERED: Sodium Chloride 0.45% 1,000 ML IV SCH (08:00)
[2017-04-07] MEDS ORDERED: Sodium Chloride 0.9% 1,000 ML IV ONE ×4 (08:30→15:28)
--- NOTE | 2017-04-07 08:41 | CP.CCUPN ---
<Mic Sanches - Last Filed: 04/07/17 11:31> CCU Subjective - Physician Review Subjective (Free Text): PGY1 ICU Progress Note for Dr. Caitie Solorzano Patient seen and examined at bedside this morning. Patient intubated. Patient is not currently on any sedation. ROS unobtainable. CCU Objective - Vital Signs / Intake & Output Vital Signs (Last 4 hours): Vital Signs Pulse Resp BP Pulse Ox 04/07/17 06:46 110 H 33 H 100/64 98 04/07/17 06:00 110 H 35 H 97 04/07/17 05:46 110 H 34 H 93/59 L 98 04/07/17 05:00 113 H 37 H 100 04/07/17 04:46 101/65 Intake and Output (Last 8hrs): Intake & Output 04/06/17 04/07/17 04/07/17 22:59 06:59 14:59 Intake Total 975.0 1478.0 Output Total 155 460 Balance 820.0 1018.0 Weight 149 lb 6 oz Intake: IV 258 Intake, IV Amount 840.0 860.0 Right Distal Port 50 Internal Jugular Right Medial Port 90.0 60.0 Internal Jugular Right Proximal Port 700 800 Internal Jugular Tube Feeding 135 360 Output: Urine 155 60 Urethral ([place]) 155 60 Stool 400 - Physical Exam Head: Positive for: Atraumatic, Normocephalic Pupils: Positive for: PERRL Extroacular Muscles: Positive for: Other (gaze down and to right) Mouth: Positive for: Moist Mucous Membranes, Other (intubated) Neck: Positive for: Normal Range of Motion Respiratory/Chest: Positive for: Rales, Rhonchi, Other (restarted on levophed drip due to hypotension). Negative for: Accessory Muscle Use Cardiovascular: Positive for: Regular Rate and Rhythm Abdomen: Positive for: Distention, Normal Bowel Sounds, Other (tympanic to percussion. healing petechiae rash in center of abdomen ). Negative for: Tenderness Upper Extremity: Positive for: Other (multiple areas of ecchymosis at various stages of healing) Lower Extremity: Positive for: Edema, Other (multiple areas of ecchymosis at various stages of healing) Neurological: Positive for: Other (intubated. Not responsive on no sedation. ) Skin: Positive for: Warm, Dry. Negative for: Normal Color (appears yellowish) Psychiatric: Positive for: Other (intubated) - Medications Active Medications: Active Medications Generic Name Dose Route Start Last Admin Trade Name Nati PRN Reason Stop Dose Admin Albuterol/Ipratropium 3 ml 03/30/17 14:00 04/07/17 07:48 Duoneb 3 Mg/0.5 Mg (3 Ml) Ud INH 3 ml RQ6 [place] Administration Ascorbic Acid 1,500 mg 04/06/17 10:00 04/07/17 03:30 Vitamin C 500 Mg Tab NG 1,500 mg Q6H [place] Administration Famotidine 20 mg 04/06/17 18:00 04/06/17 17:56 Pepcid PO 20 mg BID [place] Administration Hydrocortisone Sodium Succinate 100 mg 04/06/17 16:00 04/07/17 00:19 Solu-Cortef IV 100 mg Q8H [place] Administration Tigecycline 50 mg/ Sodium 100 mls @ 100 mls/hr 03/30/17 07:00 04/07/17 06:39 Chloride IVPB 100 mls/hr Q12H [place] Administration Norepinephrine Bitartrate 8 mg 258 mls @ 7.74 mls/hr 04/04/17 09:31 04/07/17 03:32 / Dextrose IV 5 mcg/min .Q24H PRN 9.67 mls/hr TITRATE PER MD ORDER Administration Protocol 4 MCG/MIN Fluconazole 100 mls @ 100 mls/hr 04/06/17 16:15 04/06/17 18:15 Diflucan Iv 200 Mg/100 Ml Ns IVPB 100 mls/hr DAILY [place] Administration Sodium Chloride 1,000 mls @ 75 mls/hr 04/07/17 08:00 04/07/17 07:57 Sodium Chloride 0.45% IV 75 mls/hr .[id number] [place] Administration Insulin Aspart 0 unit 03/28/17 12:00 04/07/17 05:57 Novolog SC 1 unit Q6 [place] Administration Protocol Multivitamins 1 tab 04/06/17 10:00 04/06/17 10:32 Hexavitamin PO 1 tab DAILY [place] Administration Thiamine HCl 200 mg 04/06/17 08:15 04/07/17 05:57 Vitamin B1 Inj IV 04/09/17 22:01 200 mg Q8 [place] Administration Zinc Sulfate 220 mg 04/06/17 10:00 04/06/17 10:33 Zinc Sulfate 220 Mg Cap PO 220 mg DAILY [place] Administration - Patient Studies Lab Studies: Microbiology Studies 04/05/17 08:00 Urine Culture - Final Urine,Catheterized Yeast Species 04/05/17 08:30 Blood Culture - Preliminary Blood-Thru Central Line NO GROWTH AFTER 24 HOURS 04/05/17 10:00 Blood Culture - Preliminary Blood-Thru Central Line NO GROWTH AFTER 24 HOURS Lab Studies 04/07/17 04/07/17 04/07/17 Range/Units 06:48 06:48 06:48 WBC 17.5 H (4.8-10.8) K/uL RBC 1.92 L (3.80-5.20) Mil/uL Hgb 6.6 L (11.0-16.0) g/dL Hct 20.5 L (34.0-47.0) % MCV 106.8 H D (81.0-99.0) fL MCH 34.3 H (27.0-31.0) pg MCHC 32.1 L (33.0-37.0) g/dL RDW 22.3 H (11.5-14.5) % Plt Count 3 L* (130-400) K/uL MPV 12.1 H (7.2-11.7) fL Neut % (Auto) 90.6 H (50.0-75.0) % Lymph % (Auto) 7.0 L (20.0-40.0) % [place] % (Auto) 1.9 (0.0-10.0) % Eos % (Auto) 0.1 (0.0-4.0) % Baso % (Auto) 0.4 (0.0-2.0) % Neut # 15.9 H (1.8-7.0) K/uL Lymph # 1.2 (1.0-4.3) K/uL [place] # 0.3 (0.0-0.8) K/uL Eos # 0.0 (0.0-0.7) K/uL Baso # 0.1 (0.0-0.2) K/uL Neutrophils % (Manual) (50-75) % Band Neutrophils % (0-2) % Lymphocytes % (Manual) (20-40) % Monocytes % (Manual) (0-10) % Eosinophils % (Manual) (0-4) % Nucleated RBC % (0-0) % Toxic Granulation Dohle Bodies Platelet Estimate (NORMAL) Poikilocytosis (manual Anisocytosis (manual) Microcytosis (manual) Macrocytosis (manual) Haptoglobin (43-212) mg/dL Fibrinogen < 117 L (200-400) mg/dL Puncture Site pCO2 (35-45) mm/Hg pO2 (80-100) mm/Hg HCO3 (21-28) mmol/L ABG pH (7.35-7.45) ABG Total CO2 (22-28) mmol/L ABG O2 Saturation (95-98) % ABG Base Excess (-2.0-3.0) mmol/L ABG Hemoglobin (11.7-17.4) g/dL ABG Carboxyhemoglobin (0.5-1.5) % POC ABG HHb (Measured) (0.0-5.0) % ABG Methemoglobin (0.0-3.0) % Crescencio Test ABG Potassium (3.6-5.2) mmol/L A-a O2 Difference mm/Hg Respiratory Index Hgb O2 Saturation (95.0-98.0) % Sodium 151 H (132-148) mmol/l Chloride 113 H (98-107) mmol/L Glucose (65-105) mg/dl Lactate (0.7-2.1) mmol/L Vent Mode Mechanical Rate FiO2 % Tidal Volume PEEP Crit Value Called To Crit Value Called By Crit Value Read Back Blood Gas Notified Time Potassium 4.4 (3.6-5.2) mmol/L Carbon Dioxide 18 L (22-30) mmol/L Anion Gap 25 H (10-20) BUN 81 H (7-17) mg/dL Creatinine 1.9 H (0.7-1.2) mg/dL Est GFR ( Amer) 33 Est GFR (Non-Af Amer) 27 POC Glucose (mg/dL) (65-110) mg/dL Random Glucose 121 H (65-105) mg/dL Lactic Acid (0.7-2.1) mmol/L Calcium 8.7 (8.6-10.4) mg/dl Phosphorus 4.1 (2.5-4.5) mg/dL Magnesium 1.7 (1.6-2.3) mg/dL Total Bilirubin 10.0 H (0.2-1.3) mg/dL AST 38 H (14-36) U/L ALT 41 (9-52) U/L Alkaline Phosphatase 40 (38-126) U/L Total Protein 4.5 L (6.3-8.3) g/dL Albumin 2.8 L (3.5-5.0) g/dL Globulin 1.7 L (2.2-3.9) gm/dL Albumin/Globulin Ratio 1.6 (1.0-2.1) Arterial Blood Potassium (3.6-5.2) mmol/L 04/07/17 04/07/17 04/07/17 Range/Units 05:32 05:27 00:23 WBC (4.8-10.8) K/uL RBC (3.80-5.20) Mil/uL Hgb (11.0-16.0) g/dL Hct (34.0-47.0) % MCV (81.0-99.0) fL MCH (27.0-31.0) pg MCHC (33.0-37.0) g/dL RDW (11.5-14.5) % Plt Count (130-400) K/uL MPV (7.2-11.7) fL Neut % (Auto) (50.0-75.0) % Lymph % (Auto) (20.0-40.0) % [place] % (Auto) (0.0-10.0) % Eos % (Auto) (0.0-4.0) % Baso % (Auto) (0.0-2.0) % Neut # (1.8-7.0) K/uL Lymph # (1.0-4.3) K/uL [place] # (0.0-0.8) K/uL Eos # (0.0-0.7) K/uL Baso # (0.0-0.2) K/uL Neutrophils % (Manual) (50-75) % Band Neutrophils % (0-2) % Lymphocytes % (Manual) (20-40) % Monocytes % (Manual) (0-10) % Eosinophils % (Manual) (0-4) % Nucleated RBC % (0-0) % Toxic Granulation Dohle Bodies Platelet Estimate (NORMAL) Poikilocytosis (manual Anisocytosis (manual) Microcytosis (manual) Macrocytosis (manual) Haptoglobin (43-212) mg/dL Fibrinogen (200-400) mg/dL Puncture Site Rb pCO2 31 L (35-45) mm/Hg pO2 102 H (80-100) mm/Hg HCO3 17.8 L (21-28) mmol/L ABG pH 7.32 L (7.35-7.45) ABG Total CO2 17.0 L (22-28) mmol/L ABG O2 Saturation 100.1 H (95-98) % ABG Base Excess -9.2 L (-2.0-3.0) mmol/L ABG Hemoglobin 6.6 L (11.7-17.4) g/dL ABG Carboxyhemoglobin 1.9 H (0.5-1.5) % POC ABG HHb (Measured) -0.1 L (0.0-5.0) % ABG Methemoglobin 1.0 (0.0-3.0) % Crescencio Test Na ABG Potassium (3.6-5.2) mmol/L A-a O2 Difference 216.0 mm/Hg Respiratory Index 2.1 Hgb O2 Saturation 97.2 (95.0-98.0) % Sodium (132-148) mmol/l Chloride (98-107) mmol/L Glucose (65-105) mg/dl Lactate (0.7-2.1) mmol/L Vent Mode Prvc Mechanical Rate 16 FiO2 50.0 % Tidal Volume 400 PEEP 5 Crit Value Called To Crit Value Called By Crit Value Read Back Blood Gas Notified Time Potassium (3.6-5.2) mmol/L Carbon Dioxide (22-30) mmol/L Anion Gap (10-20) BUN (7-17) mg/dL Creatinine (0.7-1.2) mg/dL Est GFR ( Amer) Est GFR (Non-Af Amer) POC Glucose (mg/dL) 155 H 156 H (65-110) mg/dL Random Glucose (65-105) mg/dL Lactic Acid (0.7-2.1) mmol/L Calcium (8.6-10.4) mg/dl Phosphorus (2.5-4.5) mg/dL Magnesium (1.6-2.3) mg/dL Total Bilirubin (0.2-1.3) mg/dL AST (14-36) U/L ALT (9-52) U/L Alkaline Phosphatase (38-126) U/L Total Protein (6.3-8.3) g/dL Albumin (3.5-5.0) g/dL Globulin (2.2-3.9) gm/dL Albumin/Globulin Ratio (1.0-2.1) Arterial Blood Potassium (3.6-5.2) mmol/L 04/06/17 04/06/17 04/06/17 Range/Units 21:45 20:06 20:06 WBC 17.5 H (4.8-10.8) K/uL RBC 2.22 L (3.80-5.20) Mil/uL Hgb 7.7 L (11.0-16.0) g/dL Hct 23.0 L (34.0-47.0) % MCV 103.9 H D (81.0-99.0) fL MCH 34.7 H (27.0-31.0) pg MCHC 33.4 (33.0-37.0) g/dL RDW 21.6 H (11.5-14.5) % Plt Count 3 L* D (130-400) K/uL MPV 10.8 (7.2-11.7) fL Neut % (Auto) 90.8 H (50.0-75.0) % Lymph % (Auto) 7.3 L (20.0-40.0) % [place] % (Auto) 1.4 (0.0-10.0) % Eos % (Auto) 0.0 (0.0-4.0) % Baso % (Auto) 0.5 (0.0-2.0) % Neut # 15.9 H (1.8-7.0) K/uL Lymph # 1.3 (1.0-4.3) K/uL [place] # 0.2 (0.0-0.8) K/uL Eos # 0.0 (0.0-0.7) K/uL Baso # 0.1 (0.0-0.2) K/uL Neutrophils % (Manual) 92 H (50-75) % Band Neutrophils % 3 H (0-2) % Lymphocytes % (Manual) 4 L (20-40) % Monocytes % (Manual) 1 (0-10) % Eosinophils % (Manual) (0-4) % Nucleated RBC % (0-0) % Toxic Granulation Present Dohle Bodies Platelet Estimate Markedly decreased L (NORMAL) Poikilocytosis (manual Slight Anisocytosis (manual) Slight Microcytosis (manual) Slight Macrocytosis (manual) Slight Haptoglobin (43-212) mg/dL Fibrinogen (200-400) mg/dL Puncture Site Rradial pCO2 27 L (35-45) mm/Hg pO2 135 H (80-100) mm/Hg HCO3 20.7 L (21-28) mmol/L ABG pH 7.42 (7.35-7.45) ABG Total CO2 18.3 L (22-28) mmol/L ABG O2 Saturation 100.8 H (95-98) % ABG Base Excess -5.5 L (-2.0-3.0) mmol/L ABG Hemoglobin (11.7-17.4) g/dL ABG Carboxyhemoglobin (0.5-1.5) % POC ABG HHb (Measured) (0.0-5.0) % ABG Methemoglobin (0.0-3.0) % Crescencio Test Pos ABG Potassium 3.6 (3.6-5.2) mmol/L A-a O2 Difference 259.0 mm/Hg Respiratory Index 1.9 Hgb O2 Saturation (95.0-98.0) % Sodium 149.0 H (132-148) mmol/l Chloride 118.0 H (98-107) mmol/L Glucose 138 H (65-105) mg/dl Lactate 7.0 H* (0.7-2.1) mmol/L Vent Mode Prvc Mechanical Rate 16 FiO2 60.0 % Tidal Volume 400 PEEP 5 Crit Value Called To Dr. hernandez Crit Value Called By Dolly diaz rcp Crit Value Read Back Y Blood Gas Notified Time 215 Potassium (3.6-5.2) mmol/L Carbon Dioxide (22-30) mmol/L Anion Gap (10-20) BUN (7-17) mg/dL Creatinine (0.7-1.2) mg/dL Est GFR ( Amer) Est GFR (Non-Af Amer) POC Glucose (mg/dL) (65-110) mg/dL Random Glucose (65-105) mg/dL Lactic Acid 7.7 H* (0.7-2.1) mmol/L Calcium (8.6-10.4) mg/dl Phosphorus (2.5-4.5) mg/dL Magnesium (1.6-2.3) mg/dL Total Bilirubin (0.2-1.3) mg/dL AST (14-36) U/L ALT (9-52) U/L Alkaline Phosphatase (38-126) U/L Total Protein (6.3-8.3) g/dL Albumin (3.5-5.0) g/dL Globulin (2.2-3.9) gm/dL Albumin/Globulin Ratio (1.0-2.1) Arterial Blood Potassium 3.6 (3.6-5.2) mmol/L 04/06/17 04/06/17 04/06/17 Range/Units 17:28 11:37 06:21 WBC (4.8-10.8) K/uL RBC (3.80-5.20) Mil/uL Hgb (11.0-16.0) g/dL Hct (34.0-47.0) % MCV (81.0-99.0) fL MCH (27.0-31.0) pg MCHC (33.0-37.0) g/dL RDW (11.5-14.5) % Plt Count (130-400) K/uL MPV (7.2-11.7) fL Neut % (Auto) 94.0 H (50.0-75.0) % Lymph % (Auto) 4.0 L (20.0-40.0) % [place] % (Auto) 1.0 (0.0-10.0) % Eos % (Auto) 1.0 (0.0-4.0) % Baso % (Auto) 0.0 (0.0-2.0) % Neut # 15.1 H (1.8-7.0) K/uL Lymph # 0.6 L (1.0-4.3) K/uL [place] # 0.2 (0.0-0.8) K/uL Eos # 0.2 (0.0-0.7) K/uL Baso # 0.0 (0.0-0.2) K/uL Neutrophils % (Manual) 83 H (50-75) % Band Neutrophils % 6 H (0-2) % Lymphocytes % (Manual) 6 L (20-40) % Monocytes % (Manual) 3 (0-10) % Eosinophils % (Manual) 2 (0-4) % Nucleated RBC % 1 H (0-0) % Toxic Granulation Present Dohle Bodies Present Platelet Estimate Markedly decreased L (NORMAL) Poikilocytosis (manual Anisocytosis (manual) Moderate Microcytosis (manual) Macrocytosis (manual) Moderate Haptoglobin (43-212) mg/dL Fibrinogen (200-400) mg/dL Puncture Site pCO2 (35-45) mm/Hg pO2 (80-100) mm/Hg HCO3 (21-28) mmol/L ABG pH (7.35-7.45) ABG Total CO2 (22-28) mmol/L ABG O2 Saturation (95-98) % ABG Base Excess (-2.0-3.0) mmol/L ABG Hemoglobin (11.7-17.4) g/dL ABG Carboxyhemoglobin (0.5-1.5) % POC ABG HHb (Measured) (0.0-5.0) % ABG Methemoglobin (0.0-3.0) % Crescencio Test ABG Potassium (3.6-5.2) mmol/L A-a O2 Difference mm/Hg Respiratory Index Hgb O2 Saturation (95.0-98.0) % Sodium (132-148) mmol/l Chloride (98-107) mmol/L Glucose (65-105) mg/dl Lactate (0.7-2.1) mmol/L Vent Mode Mechanical Rate FiO2 % Tidal Volume PEEP Crit Value Called To Crit Value Called By Crit Value Read Back Blood Gas Notified Time Potassium (3.6-5.2) mmol/L Carbon Dioxide (22-30) mmol/L Anion Gap (10-20) BUN (7-17) mg/dL Creatinine (0.7-1.2) mg/dL Est GFR ( Amer) Est GFR (Non-Af Amer) POC Glucose (mg/dL) 189 H 136 H (65-110) mg/dL Random Glucose (65-105) mg/dL Lactic Acid (0.7-2.1) mmol/L Calcium (8.6-10.4) mg/dl Phosphorus (2.5-4.5) mg/dL Magnesium (1.6-2.3) mg/dL Total Bilirubin (0.2-1.3) mg/dL AST (14-36) U/L ALT (9-52) U/L Alkaline Phosphatase (38-126) U/L Total Protein (6.3-8.3) g/dL Albumin (3.5-5.0) g/dL Globulin (2.2-3.9) gm/dL Albumin/Globulin Ratio (1.0-2.1) Arterial Blood Potassium (3.6-5.2) mmol/L 04/05/17 Range/Units 14:30 WBC (4.8-10.8) K/uL RBC (3.80-5.20) Mil/uL Hgb (11.0-16.0) g/dL Hct (34.0-47.0) % MCV (81.0-99.0) fL MCH (27.0-31.0) pg MCHC (33.0-37.0) g/dL RDW (11.5-14.5) % Plt Count (130-400) K/uL MPV (7.2-11.7) fL Neut % (Auto) (50.0-75.0) % Lymph % (Auto) (20.0-40.0) % [place] % (Auto) (0.0-10.0) % Eos % (Auto) (0.0-4.0) % Baso % (Auto) (0.0-2.0) % Neut # (1.8-7.0) K/uL Lymph # (1.0-4.3) K/uL [place] # (0.0-0.8) K/uL Eos # (0.0-0.7) K/uL Baso # (0.0-0.2) K/uL Neutrophils % (Manual) (50-75) % Band Neutrophils % (0-2) % Lymphocytes % (Manual) (20-40) % Monocytes % (Manual) (0-10) % Eosinophils % (Manual) (0-4) % Nucleated RBC % (0-0) % Toxic Granulation Dohle Bodies Platelet Estimate (NORMAL) Poikilocytosis (manual Anisocytosis (manual) Microcytosis (manual) Macrocytosis (manual) Haptoglobin 29 L (43-212) mg/dL Fibrinogen (200-400) mg/dL Puncture Site pCO2 (35-45) mm/Hg pO2 (80-100) mm/Hg HCO3 (21-28) mmol/L ABG pH (7.35-7.45) ABG Total CO2 (22-28) mmol/L ABG O2 Saturation (95-98) % ABG Base Excess (-2.0-3.0) mmol/L ABG Hemoglobin (11.7-17.4) g/dL ABG Carboxyhemoglobin (0.5-1.5) % POC ABG HHb (Measured) (0.0-5.0) % ABG Methemoglobin (0.0-3.0) % Crescencio Test ABG Potassium (3.6-5.2) mmol/L A-a O2 Difference mm/Hg Respiratory Index Hgb O2 Saturation (95.0-98.0) % Sodium (132-148) mmol/l Chloride (98-107) mmol/L Glucose (65-105) mg/dl Lactate (0.7-2.1) mmol/L Vent Mode Mechanical Rate FiO2 % Tidal Volume PEEP Crit Value Called To Crit Value Called By Crit Value Read Back Blood Gas Notified Time Potassium (3.6-5.2) mmol/L Carbon Dioxide (22-30) mmol/L Anion Gap (10-20) BUN (7-17) mg/dL Creatinine (0.7-1.2) mg/dL Est GFR ( Amer) Est GFR (Non-Af Amer) POC Glucose (mg/dL) (65-110) mg/dL Random Glucose (65-105) mg/dL Lactic Acid (0.7-2.1) mmol/L Calcium (8.6-10.4) mg/dl Phosphorus (2.5-4.5) mg/dL Magnesium (1.6-2.3) mg/dL Total Bilirubin (0.2-1.3) mg/dL AST (14-36) U/L ALT (9-52) U/L Alkaline Phosphatase (38-126) U/L Total Protein (6.3-8.3) g/dL Albumin (3.5-5.0) g/dL Globulin (2.2-3.9) gm/dL Albumin/Globulin Ratio (1.0-2.1) Arterial Blood Potassium (3.6-5.2) mmol/L Laboratory Results - last 24 hr 04/05/17 04/06/17 04/06/17 14:30 06:21 11:37 WBC RBC Hgb Hct MCV MCH MCHC RDW Plt Count MPV Neut % (Auto) 94.0 H Lymph % (Auto) 4.0 L [place] % (Auto) 1.0 Eos % (Auto) 1.0 Baso % (Auto) 0.0 Neut # 15.1 H Lymph # 0.6 L [place] # 0.2 Eos # 0.2 Baso # 0.0 Neutrophils % (Manual) 83 H Band Neutrophils % 6 H Lymphocytes % (Manual) 6 L Monocytes % (Manual) 3 Eosinophils % (Manual) 2 Nucleated RBC % 1 H Toxic Granulation Present Dohle Bodies Present Platelet Estimate Markedly decreased L Poikilocytosis (manual Anisocytosis (manual) Moderate Microcytosis (manual) Macrocytosis (manual) Moderate Haptoglobin 29 L Fibrinogen Puncture Site pCO2 pO2 HCO3 ABG pH ABG Total CO2 ABG O2 Saturation ABG Base Excess ABG Hemoglobin ABG Carboxyhemoglobin POC ABG HHb (Measured) ABG Methemoglobin Crescencio Test ABG Potassium A-a O2 Difference Respiratory Index Hgb O2 Saturation Sodium Chloride Glucose Lactate Vent Mode Mechanical Rate FiO2 Tidal Volume PEEP Crit Value Called To Crit Value Called By Crit Value Read Back Blood Gas Notified Time Potassium Carbon Dioxide Anion Gap BUN Creatinine Est GFR ( Amer) Est GFR (Non-Af Amer) POC Glucose (mg/dL) 136 H Random Glucose Lactic Acid Calcium Phosphorus Magnesium Total Bilirubin AST ALT Alkaline Phosphatase Total Protein Albumin Globulin Albumin/Globulin Ratio Arterial Blood Potassium 04/06/17 04/06/17 04/06/17 17:28 20:06 20:06 WBC 17.5 H RBC 2.22 L Hgb 7.7 L Hct 23.0 L MCV 103.9 H D MCH 34.7 H MCHC 33.4 RDW 21.6 H Plt Count 3 L* D MPV 10.8 Neut % (Auto) 90.8 H Lymph % (Auto) 7.3 L [place] % (Auto) 1.4 Eos % (Auto) 0.0 Baso % (Auto) 0.5 Neut # 15.9 H Lymph # 1.3 [place] # 0.2 Eos # 0.0 Baso # 0.1 Neutrophils % (Manual) 92 H Band Neutrophils % 3 H Lymphocytes % (Manual) 4 L Monocytes % (Manual) 1 Eosinophils % (Manual) Nucleated RBC % Toxic Granulation Present Dohle Bodies Platelet Estimate Markedly decreased L Poikilocytosis (manual Slight Anisocytosis (manual) Slight Microcytosis (manual) Slight Macrocytosis (manual) Slight Haptoglobin Fibrinogen Puncture Site pCO2 pO2 HCO3 ABG pH ABG Total CO2 ABG O2 Saturation ABG Base Excess ABG Hemoglobin ABG Carboxyhemoglobin POC ABG HHb (Measured) ABG Methemoglobin Crescencio Test ABG Potassium A-a O2 Difference Respiratory Index Hgb O2 Saturation Sodium Chloride Glucose Lactate Vent Mode Mechanical Rate FiO2 Tidal Volume PEEP Crit Value Called To Crit Value Called By Crit Value Read Back Blood Gas Notified Time Potassium Carbon Dioxide Anion Gap BUN Creatinine Est GFR ( Amer) Est GFR (Non-Af Amer) POC Glucose (mg/dL) 189 H Random Glucose Lactic Acid 7.7 H* Calcium Phosphorus Magnesium Total Bilirubin AST ALT Alkaline Phosphatase Total Protein Albumin Globulin Albumin/Globulin Ratio Arterial Blood Potassium 04/06/17 04/07/17 04/07/17 21:45 00:23 05:27 WBC RBC Hgb Hct MCV MCH MCHC RDW Plt Count MPV Neut % (Auto) Lymph % (Auto) [place] % (Auto) Eos % (Auto) Baso % (Auto) Neut # Lymph # [place] # Eos # Baso # Neutrophils % (Manual) Band Neutrophils % Lymphocytes % (Manual) Monocytes % (Manual) Eosinophils % (Manual) Nucleated RBC % Toxic Granulation Dohle Bodies Platelet Estimate Poikilocytosis (manual Anisocytosis (manual) Microcytosis (manual) Macrocytosis (manual) Haptoglobin Fibrinogen Puncture Site Rradial Rb pCO2 27 L 31 L pO2 135 H 102 H HCO3 20.7 L 17.8 L ABG pH 7.42 7.32 L ABG Total CO2 18.3 L 17.0 L ABG O2 Saturation 100.8 H 100.1 H ABG Base Excess -5.5 L -9.2 L ABG Hemoglobin 6.6 L ABG Carboxyhemoglobin 1.9 H POC ABG HHb (Measured) -0.1 L ABG Methemoglobin 1.0 Crescencio Test Pos Na ABG Potassium 3.6 A-a O2 Difference 259.0 216.0 Respiratory Index 1.9 2.1 Hgb O2 Saturation 97.2 Sodium 149.0 H Chloride 118.0 H Glucose 138 H Lactate 7.0 H* Vent Mode Prvc Prvc Mechanical Rate 16 16 FiO2 60.0 50.0 Tidal Volume 400 400 PEEP 5 5 Crit Value Called To Dr. hernandez Crit Value Called By Dolly diaz rcp Crit Value Read Back Y Blood Gas Notified Time 2153 Potassium Carbon Dioxide Anion Gap BUN Creatinine Est GFR ( Amer) Est GFR (Non-Af Amer) POC Glucose (mg/dL) 156 H Random Glucose Lactic Acid Calcium Phosphorus Magnesium Total Bilirubin AST ALT Alkaline Phosphatase Total Protein Albumin Globulin Albumin/Globulin Ratio Arterial Blood Potassium 3.6 04/07/17 04/07/17 04/07/17 05:32 06:48 06:48 WBC 17.5 H RBC 1.92 L Hgb 6.6 L Hct 20.5 L MCV 106.8 H D MCH 34.3 H MCHC 32.1 L RDW 22.3 H Plt Count 3 L* MPV 12.1 H Neut % (Auto) 90.6 H Lymph % (Auto) 7.0 L [place] % (Auto) 1.9 Eos % (Auto) 0.1 Baso % (Auto) 0.4 Neut # 15.9 H Lymph # 1.2 [place] # 0.3 Eos # 0.0 Baso # 0.1 Neutrophils % (Manual) Band Neutrophils % Lymphocytes % (Manual) Monocytes % (Manual) Eosinophils % (Manual) Nucleated RBC % Toxic Granulation Dohle Bodies Platelet Estimate Poikilocytosis (manual Anisocytosis (manual) Microcytosis (manual) Macrocytosis (manual) Haptoglobin Fibrinogen < 117 L Puncture Site pCO2 pO2 HCO3 ABG pH ABG Total CO2 ABG O2 Saturation ABG Base Excess ABG Hemoglobin ABG Carboxyhemoglobin POC ABG HHb (Measured) ABG Methemoglobin Crescencio Test ABG Potassium A-a O2 Difference Respiratory Index Hgb O2 Saturation Sodium Chloride Glucose Lactate Vent Mode Mechanical Rate FiO2 Tidal Volume PEEP Crit Value Called To Crit Value Called By Crit Value Read Back Blood Gas Notified Time Potassium Carbon Dioxide Anion Gap BUN Creatinine Est GFR ( Amer) Est GFR (Non-Af Amer) POC Glucose (mg/dL) 155 H Random Glucose Lactic Acid Calcium Phosphorus Magnesium Total Bilirubin AST ALT Alkaline Phosphatase Total Protein Albumin Globulin Albumin/Globulin Ratio Arterial Blood Potassium 04/07/17 06:48 WBC RBC Hgb Hct MCV MCH MCHC RDW Plt Count MPV Neut % (Auto) Lymph % (Auto) [place] % (Auto) Eos % (Auto) Baso % (Auto) Neut # Lymph # [place] # Eos # Baso # Neutrophils % (Manual) Band Neutrophils % Lymphocytes % (Manual) Monocytes % (Manual) Eosinophils % (Manual) Nucleated RBC % Toxic Granulation Dohle Bodies Platelet Estimate Poikilocytosis (manual Anisocytosis (manual) Microcytosis (manual) Macrocytosis (manual) Haptoglobin Fibrinogen Puncture Site pCO2 pO2 HCO3 ABG pH ABG Total CO2 ABG O2 Saturation ABG Base Excess ABG Hemoglobin ABG Carboxyhemoglobin POC ABG HHb (Measured) ABG Methemoglobin Crescencio Test ABG Potassium A-a O2 Difference Respiratory Index Hgb O2 Saturation Sodium 151 H Chloride 113 H Glucose Lactate Vent Mode Mechanical Rate FiO2 Tidal Volume PEEP Crit Value Called To Crit Value Called By Crit Value Read Back Blood Gas Notified Time Potassium 4.4 Carbon Dioxide 18 L Anion Gap 25 H BUN 81 H Creatinine 1.9 H Est GFR ( Amer) 33 Est GFR (Non-Af Amer) 27 POC Glucose (mg/dL) Random Glucose 121 H Lactic Acid Calcium 8.7 Phosphorus 4.1 Magnesium 1.7 Total Bilirubin 10.0 H AST 38 H ALT 41 Alkaline Phosphatase 40 Total Protein 4.5 L Albumin 2.8 L Globulin 1.7 L Albumin/Globulin Ratio 1.6 Arterial Blood Potassium Fingerstick Blood Sugar Results: 155 Review of Systems - Review of Systems Systems not reviewed;Unavailable: Intubated Critical Care Progress Note - Nutrition Nutrition: Nutrition Category Date Time Status Heart Healthy Diet [DIET] Diets 03/17/17 Dinner Active Assessment/Plan - Assessment and Plan (Free Text) Assessment: Patient is a 61 year old female with increasing respiratory distress most likely 2/2 ARDS vs pulmonary edema. Septic Shock from UTI. Plan: Respiratory: Intubated ARDS improving RLL Pneumonia CXR 04/07 - Interval mild improvement at the right lung base. Otherwise no significant interval change. ABG - pCO2 31/pO2 102/HCO3 17.8/pH 7.32 - vent settings 400/50/16/5 - Please titrate FiO2 to keep ox sat >92% Duoneb 3mL INH q6h : Septic Shock Dr. Mejia consulted Dr. Dos Santos consulted WBC 17.5 ESBL E. Coli in urine culture (03/17). repeat urine culture (03/26) - Proteus Mirabilis - on Tigecycline 50mg IVPB q12h (started on 03/30) Repeat urine 04/27 - no growth Repeat blood cultures(03/30) - no growth at 5 days Trachasp culture 03/30 - no growth repeat blood culture (04/05) - negative at 24 hours repeat urine culture (04/05) - positive for yeast - Diflucan 200mg IVPB daily (started on 04/06) Lactic Acid 7.7 - given 1 L bolus of NS - continue to monitor q4h f/u ID recs CV: Hypotension - sepsis vs hypovolemia Levophed drip Hydrocortisone 100mg IV q8h Vitamin C 1500mg PO q6h GI: Stool occult positive Albumin 2.8 Hem: Dr. Neri consulted, help appreciated D.I.C. Hgb decreased to 6.6 from 8.5 (was transfused 2 units of pRBC on 04/05) - transfuse 1 unit of pRBC Platelets 3 from 19 - patient transfuse 2 unit of platelets Fibrinogen <117 - transfuse 15 units of cryoprecipitate - if Fibrinogen falls below 100, transfuse another 5 units - continue to monitor T.Bili 10 - direct bili 5.6 (04/04) Nephrology: Dr. Roe consulted, help appreciated - Dr. Flynn actively covering case Cr worsening 1.9 from 1.5 Strict I's and O's Endo: ISS Electrolytes: Mag 1.7 Phos 4.1 Prophylactic Care: Pepcid and SCDs No anticoagulation due to GI bleed Palliative Care consult - patient's condition is worsening, poor prognosis. - Patient made DNR/DNI by Mr. Lizy Lopse, boyfriend of 29 years, per Palliative note. Case discussed with Dr. Caitie Sanches PGY1 <Darcie Solorzano - Last Filed: 04/07/17 13:22> CCU Subjective - Physician Review Critical Care Time Spent (in minutes): 45 CCU Objective - Vital Signs / Intake & Output Vital Signs (Last 4 hours): Vital Signs Temp Pulse Resp BP 04/07/17 09:45 98.5 F 106 H 36 H 74/33 L Intake and Output (Last 8hrs): Intake & Output 04/06/17 04/07/17 04/07/17 22:59 06:59 14:59 Intake Total 975.0 1478.0 325 Output Total 155 460 Balance 820.0 1018.0 325 Weight 149 lb 6 oz Intake: IV 258 Intake, IV Amount 840.0 860.0 Right Distal Port 50 Internal Jugular Right Medial Port 90.0 60.0 Internal Jugular Right Proximal Port 700 800 Internal Jugular Tube Feeding 135 360 Blood Product 325 Red Blood Cells Cpd As1 325 Lr Unit [id number] Output: Urine 155 60 Urethral ([place]) 155 60 Stool 400 - Medications Active Medications: Active Medications Generic Name Dose Route Start Last Admin Trade Name Freq PRN Reason Stop Dose Admin Albuterol/Ipratropium 3 ml 03/30/17 14:00 04/07/17 07:48 Duoneb 3 Mg/0.5 Mg (3 Ml) Ud INH 3 ml RQ6 [place] Administration Famotidine 20 mg 04/06/17 18:00 04/06/17 17:56 Pepcid PO 20 mg BID [place] Administration Hydrocortisone Sodium Succinate 100 mg 04/06/17 16:00 04/07/17 08:56 Solu-Cortef IV 100 mg Q8H [place] Administration Tigecycline 50 mg/ Sodium 100 mls @ 100 mls/hr 03/30/17 07:00 04/07/17 06:39 Chloride IVPB 100 mls/hr Q12H [place] Administration Norepinephrine Bitartrate 8 mg 258 mls @ 7.74 mls/hr 04/04/17 09:31 04/07/17 03:32 / Dextrose IV 5 mcg/min .Q24H PRN 9.67 mls/hr TITRATE PER MD ORDER Administration Protocol 4 MCG/MIN Fluconazole 100 mls @ 100 mls/hr 04/06/17 16:15 04/07/17 12:27 Diflucan Iv 200 Mg/100 Ml Ns IVPB 100 mls/hr DAILY [place] Administration Insulin Aspart 0 unit 03/28/17 12:00 04/07/17 12:30 Novolog SC Not Given Q6 [facility] Protocol Multivitamins 1 tab 04/06/17 10:00 04/06/17 10:32 Hexavitamin PO 1 tab DAILY [place] Administration Thiamine HCl 200 mg 04/06/17 08:15 04/07/17 05:57 Vitamin B1 Inj IV 04/09/17 22:01 200 mg Q8 [place] Administration Zinc Sulfate 220 mg 04/06/17 10:00 04/06/17 10:33 Zinc Sulfate 220 Mg Cap PO 220 mg DAILY [place] Administration - Patient Studies Lab Studies: Microbiology Studies 04/05/17 08:30 Blood Culture - Preliminary Blood-Thru Central Line NO GROWTH AFTER 48 HOURS 04/05/17 10:00 Blood Culture - Preliminary Blood-Thru Central Line NO GROWTH AFTER 48 HOURS 04/05/17 08:00 Urine Culture - Final Urine,Catheterized Yeast Species Lab Studies 04/07/17 04/07/17 04/07/17 Range/Units 11:52 09:42 06:48 WBC (4.8-10.8) K/uL RBC (3.80-5.20) Mil/uL Hgb (11.0-16.0) g/dL Hct (34.0-47.0) % MCV (81.0-99.0) fL MCH (27.0-31.0) pg MCHC (33.0-37.0) g/dL RDW (11.5-14.5) % Plt Count (130-400) K/uL MPV (7.2-11.7) fL Neut % (Auto) (50.0-75.0) % Lymph % (Auto) (20.0-40.0) % [place] % (Auto) (0.0-10.0) % Eos % (Auto) (0.0-4.0) % Baso % (Auto) (0.0-2.0) % Neut # (1.8-7.0) K/uL Lymph # (1.0-4.3) K/uL [place] # (0.0-0.8) K/uL Eos # (0.0-0.7) K/uL Baso # (0.0-0.2) K/uL Neutrophils % (Manual) (50-75) % Band Neutrophils % (0-2) % Lymphocytes % (Manual) (20-40) % Monocytes % (Manual) (0-10) % Toxic Granulation Platelet Estimate (NORMAL) Large Platelets Giant Platelets Polychromasia Hypochromasia (manual) Poikilocytosis (manual Anisocytosis (manual) Microcytosis (manual) Macrocytosis (manual) Target Cells Tear Drop Cells Ovalocytes Luma Cells Schistocytes Fibrinogen (200-400) mg/dL Puncture Site pCO2 (35-45) mm/Hg pO2 (80-100) mm/Hg HCO3 (21-28) mmol/L ABG pH (7.35-7.45) ABG Total CO2 (22-28) mmol/L ABG O2 Saturation (95-98) % ABG Base Excess (-2.0-3.0) mmol/L ABG Hemoglobin (11.7-17.4) g/dL ABG Carboxyhemoglobin (0.5-1.5) % POC ABG HHb (Measured) (0.0-5.0) % ABG Methemoglobin (0.0-3.0) % Crescencio Test ABG Potassium (3.6-5.2) mmol/L A-a O2 Difference mm/Hg Respiratory Index Hgb O2 Saturation (95.0-98.0) % Sodium 151 H (132-148) mmol/l Chloride 113 H (98-107) mmol/L Glucose (65-105) mg/dl Lactate (0.7-2.1) mmol/L Vent Mode Mechanical Rate FiO2 % Tidal Volume PEEP Crit Value Called To Crit Value Called By Crit Value Read Back Blood Gas Notified Time Potassium 4.4 (3.6-5.2) mmol/L Carbon Dioxide 18 L (22-30) mmol/L Anion Gap 25 H (10-20) BUN 81 H (7-17) mg/dL Creatinine 1.9 H (0.7-1.2) mg/dL Est GFR ( Amer) 33 Est GFR (Non-Af Amer) 27 POC Glucose (mg/dL) 128 H (65-110) mg/dL Random Glucose 121 H (65-105) mg/dL Lactic Acid 11.4 H* (0.7-2.1) mmol/L Calcium 8.7 (8.6-10.4) mg/dl Phosphorus 4.1 (2.5-4.5) mg/dL Magnesium 1.7 (1.6-2.3) mg/dL Total Bilirubin 10.0 H (0.2-1.3) mg/dL AST 38 H (14-36) U/L ALT 41 (9-52) U/L Alkaline Phosphatase 40 (38-126) U/L Total Protein 4.5 L (6.3-8.3) g/dL Albumin 2.8 L (3.5-5.0) g/dL Globulin 1.7 L (2.2-3.9) gm/dL Albumin/Globulin Ratio 1.6 (1.0-2.1) Arterial Blood Potassium (3.6-5.2) mmol/L Blood Type Antibody Screen Antibody Identification 04/07/17 04/07/17 04/07/17 Range/Units 06:48 06:48 05:32 WBC 17.5 H (4.8-10.8) K/uL RBC 1.92 L (3.80-5.20) Mil/uL Hgb 6.6 L (11.0-16.0) g/dL Hct 20.5 L (34.0-47.0) % MCV 106.8 H D (81.0-99.0) fL MCH 34.3 H (27.0-31.0) pg MCHC 32.1 L (33.0-37.0) g/dL RDW 22.3 H (11.5-14.5) % Plt Count 3 L* (130-400) K/uL MPV 12.1 H (7.2-11.7) fL Neut % (Auto) 90.6 H (50.0-75.0) % Lymph % (Auto) 7.0 L (20.0-40.0) % [place] % (Auto) 1.9 (0.0-10.0) % Eos % (Auto) 0.1 (0.0-4.0) % Baso % (Auto) 0.4 (0.0-2.0) % Neut # 15.9 H (1.8-7.0) K/uL Lymph # 1.2 (1.0-4.3) K/uL [place] # 0.3 (0.0-0.8) K/uL Eos # 0.0 (0.0-0.7) K/uL Baso # 0.1 (0.0-0.2) K/uL Neutrophils % (Manual) 88 H (50-75) % Band Neutrophils % 2 (0-2) % Lymphocytes % (Manual) 8 L (20-40) % Monocytes % (Manual) 2 (0-10) % Toxic Granulation Platelet Estimate Markedly decreased L (NORMAL) Large Platelets Present Giant Platelets Present Polychromasia Slight Hypochromasia (manual) Slight Poikilocytosis (manual Slight Anisocytosis (manual) Moderate Microcytosis (manual) Slight Macrocytosis (manual) Moderate Target Cells Slight Tear Drop Cells Slight Ovalocytes Slight [place] Cells Slight Schistocytes Slight Fibrinogen < 117 L (200-400) mg/dL Puncture Site pCO2 (35-45) mm/Hg pO2 (80-100) mm/Hg HCO3 (21-28) mmol/L ABG pH (7.35-7.45) ABG Total CO2 (22-28) mmol/L ABG O2 Saturation (95-98) % ABG Base Excess (-2.0-3.0) mmol/L ABG Hemoglobin (11.7-17.4) g/dL ABG Carboxyhemoglobin (0.5-1.5) % POC ABG HHb (Measured) (0.0-5.0) % ABG Methemoglobin (0.0-3.0) % Crescencio Test ABG Potassium (3.6-5.2) mmol/L A-a O2 Difference mm/Hg Respiratory Index Hgb O2 Saturation (95.0-98.0) % Sodium (132-148) mmol/l Chloride (98-107) mmol/L Glucose (65-105) mg/dl Lactate (0.7-2.1) mmol/L Vent Mode Mechanical Rate FiO2 % Tidal Volume PEEP Crit Value Called To Crit Value Called By Crit Value Read Back Blood Gas Notified Time Potassium (3.6-5.2) mmol/L Carbon Dioxide (22-30) mmol/L Anion Gap (10-20) BUN (7-17) mg/dL Creatinine (0.7-1.2) mg/dL Est GFR ( Amer) Est GFR (Non-Af Amer) POC Glucose (mg/dL) 155 H (65-110) mg/dL Random Glucose (65-105) mg/dL Lactic Acid (0.7-2.1) mmol/L Calcium (8.6-10.4) mg/dl Phosphorus (2.5-4.5) mg/dL Magnesium (1.6-2.3) mg/dL Total Bilirubin (0.2-1.3) mg/dL AST (14-36) U/L ALT (9-52) U/L Alkaline Phosphatase (38-126) U/L Total Protein (6.3-8.3) g/dL Albumin (3.5-5.0) g/dL Globulin (2.2-3.9) gm/dL Albumin/Globulin Ratio (1.0-2.1) Arterial Blood Potassium (3.6-5.2) mmol/L Blood Type Antibody Screen Antibody Identification 04/07/17 04/07/17 04/06/17 Range/Units 05:27 00:23 21:45 WBC (4.8-10.8) K/uL RBC (3.80-5.20) Mil/uL Hgb (11.0-16.0) g/dL Hct (34.0-47.0) % MCV (81.0-99.0) fL MCH (27.0-31.0) pg MCHC (33.0-37.0) g/dL RDW (11.5-14.5) % Plt Count (130-400) K/uL MPV (7.2-11.7) fL Neut % (Auto) (50.0-75.0) % Lymph % (Auto) (20.0-40.0) % [place] % (Auto) (0.0-10.0) % Eos % (Auto) (0.0-4.0) % Baso % (Auto) (0.0-2.0) % Neut # (1.8-7.0) K/uL Lymph # (1.0-4.3) K/uL [place] # (0.0-0.8) K/uL Eos # (0.0-0.7) K/uL Baso # (0.0-0.2) K/uL Neutrophils % (Manual) (50-75) % Band Neutrophils % (0-2) % Lymphocytes % (Manual) (20-40) % Monocytes % (Manual) (0-10) % Toxic Granulation Platelet Estimate (NORMAL) Large Platelets Giant Platelets Polychromasia Hypochromasia (manual) Poikilocytosis (manual Anisocytosis (manual) Microcytosis (manual) Macrocytosis (manual) Target Cells Tear Drop Cells Ovalocytes Luma Cells Schistocytes Fibrinogen (200-400) mg/dL Puncture Site Rb Rradial pCO2 31 L 27 L (35-45) mm/Hg pO2 102 H 135 H (80-100) mm/Hg HCO3 17.8 L 20.7 L (21-28) mmol/L ABG pH 7.32 L 7.42 (7.35-7.45) ABG Total CO2 17.0 L 18.3 L (22-28) mmol/L ABG O2 Saturation 100.1 H 100.8 H (95-98) % ABG Base Excess -9.2 L -5.5 L (-2.0-3.0) mmol/L ABG Hemoglobin 6.6 L (11.7-17.4) g/dL ABG Carboxyhemoglobin 1.9 H (0.5-1.5) % POC ABG HHb (Measured) -0.1 L (0.0-5.0) % ABG Methemoglobin 1.0 (0.0-3.0) % Crescencio Test Na Pos ABG Potassium 3.6 (3.6-5.2) mmol/L A-a O2 Difference 216.0 259.0 mm/Hg Respiratory Index 2.1 1.9 Hgb O2 Saturation 97.2 (95.0-98.0) % Sodium 149.0 H (132-148) mmol/l Chloride 118.0 H (98-107) mmol/L Glucose 138 H (65-105) mg/dl Lactate 7.0 H* (0.7-2.1) mmol/L Vent Mode Prvc Prvc Mechanical Rate 16 16 FiO2 50.0 60.0 % Tidal Volume 400 400 PEEP 5 5 Crit Value Called To Dr. hernandez Crit Value Called By Dolly diaz rcp Crit Value Read Back Y Blood Gas Notified Time 2153 Potassium (3.6-5.2) mmol/L Carbon Dioxide (22-30) mmol/L Anion Gap (10-20) BUN (7-17) mg/dL Creatinine (0.7-1.2) mg/dL Est GFR ( Amer) Est GFR (Non-Af Amer) POC Glucose (mg/dL) 156 H (65-110) mg/dL Random Glucose (65-105) mg/dL Lactic Acid (0.7-2.1) mmol/L Calcium (8.6-10.4) mg/dl Phosphorus (2.5-4.5) mg/dL Magnesium (1.6-2.3) mg/dL Total Bilirubin (0.2-1.3) mg/dL AST (14-36) U/L ALT (9-52) U/L Alkaline Phosphatase (38-126) U/L Total Protein (6.3-8.3) g/dL Albumin (3.5-5.0) g/dL Globulin (2.2-3.9) gm/dL Albumin/Globulin Ratio (1.0-2.1) Arterial Blood Potassium 3.6 (3.6-5.2) mmol/L Blood Type Antibody Screen Antibody Identification 04/06/17 04/06/17 04/06/17 Range/Units 20:06 20:06 17:28 WBC 17.5 H (4.8-10.8) K/uL RBC 2.22 L (3.80-5.20) Mil/uL Hgb 7.7 L (11.0-16.0) g/dL Hct 23.0 L (34.0-47.0) % MCV 103.9 H D (81.0-99.0) fL MCH 34.7 H (27.0-31.0) pg MCHC 33.4 (33.0-37.0) g/dL RDW 21.6 H (11.5-14.5) % Plt Count 3 L* D (130-400) K/uL MPV 10.8 (7.2-11.7) fL Neut % (Auto) 90.8 H (50.0-75.0) % Lymph % (Auto) 7.3 L (20.0-40.0) % [place] % (Auto) 1.4 (0.0-10.0) % Eos % (Auto) 0.0 (0.0-4.0) % Baso % (Auto) 0.5 (0.0-2.0) % Neut # 15.9 H (1.8-7.0) K/uL Lymph # 1.3 (1.0-4.3) K/uL [place] # 0.2 (0.0-0.8) K/uL Eos # 0.0 (0.0-0.7) K/uL Baso # 0.1 (0.0-0.2) K/uL Neutrophils % (Manual) 92 H (50-75) % Band Neutrophils % 3 H (0-2) % Lymphocytes % (Manual) 4 L (20-40) % Monocytes % (Manual) 1 (0-10) % Toxic Granulation Present Platelet Estimate Markedly decreased L (NORMAL) Large Platelets Giant Platelets Polychromasia Hypochromasia (manual) Poikilocytosis (manual Slight Anisocytosis (manual) Slight Microcytosis (manual) Slight Macrocytosis (manual) Slight Target Cells Tear Drop Cells Ovalocytes [place] Cells Schistocytes Fibrinogen (200-400) mg/dL Puncture Site pCO2 (35-45) mm/Hg pO2 (80-100) mm/Hg HCO3 (21-28) mmol/L ABG pH (7.35-7.45) ABG Total CO2 (22-28) mmol/L ABG O2 Saturation (95-98) % ABG Base Excess (-2.0-3.0) mmol/L ABG Hemoglobin (11.7-17.4) g/dL ABG Carboxyhemoglobin (0.5-1.5) % POC ABG HHb (Measured) (0.0-5.0) % ABG Methemoglobin (0.0-3.0) % Crescencio Test ABG Potassium (3.6-5.2) mmol/L A-a O2 Difference mm/Hg Respiratory Index Hgb O2 Saturation (95.0-98.0) % Sodium (132-148) mmol/l Chloride (98-107) mmol/L Glucose (65-105) mg/dl Lactate (0.7-2.1) mmol/L Vent Mode Mechanical Rate FiO2 % Tidal Volume PEEP Crit Value Called To Crit Value Called By Crit Value Read Back Blood Gas Notified Time Potassium (3.6-5.2) mmol/L Carbon Dioxide (22-30) mmol/L Anion Gap (10-20) BUN (7-17) mg/dL Creatinine (0.7-1.2) mg/dL Est GFR ( Amer) Est GFR (Non-Af Amer) POC Glucose (mg/dL) 189 H (65-110) mg/dL Random Glucose (65-105) mg/dL Lactic Acid 7.7 H* (0.7-2.1) mmol/L Calcium (8.6-10.4) mg/dl Phosphorus (2.5-4.5) mg/dL Magnesium (1.6-2.3) mg/dL Total Bilirubin (0.2-1.3) mg/dL AST (14-36) U/L ALT (9-52) U/L Alkaline Phosphatase (38-126) U/L Total Protein (6.3-8.3) g/dL Albumin (3.5-5.0) g/dL Globulin (2.2-3.9) gm/dL Albumin/Globulin Ratio (1.0-2.1) Arterial Blood Potassium (3.6-5.2) mmol/L Blood Type Antibody Screen Antibody Identification 04/05/17 Range/Units 10:43 WBC (4.8-10.8) K/uL RBC (3.80-5.20) Mil/uL Hgb (11.0-16.0) g/dL Hct (34.0-47.0) % MCV (81.0-99.0) fL MCH (27.0-31.0) pg MCHC (33.0-37.0) g/dL RDW (11.5-14.5) % Plt Count (130-400) K/uL MPV (7.2-11.7) fL Neut % (Auto) (50.0-75.0) % Lymph % (Auto) (20.0-40.0) % [place] % (Auto) (0.0-10.0) % Eos % (Auto) (0.0-4.0) % Baso % (Auto) (0.0-2.0) % Neut # (1.8-7.0) K/uL Lymph # (1.0-4.3) K/uL [place] # (0.0-0.8) K/uL Eos # (0.0-0.7) K/uL Baso # (0.0-0.2) K/uL Neutrophils % (Manual) (50-75) % Band Neutrophils % (0-2) % Lymphocytes % (Manual) (20-40) % Monocytes % (Manual) (0-10) % Toxic Granulation Platelet Estimate (NORMAL) Large Platelets Giant Platelets Polychromasia Hypochromasia (manual) Poikilocytosis (manual Anisocytosis (manual) Microcytosis (manual) Macrocytosis (manual) Target Cells Tear Drop Cells Ovalocytes [place] Cells Schistocytes Fibrinogen (200-400) mg/dL Puncture Site pCO2 (35-45) mm/Hg pO2 (80-100) mm/Hg HCO3 (21-28) mmol/L ABG pH (7.35-7.45) ABG Total CO2 (22-28) mmol/L ABG O2 Saturation (95-98) % ABG Base Excess (-2.0-3.0) mmol/L ABG Hemoglobin (11.7-17.4) g/dL ABG Carboxyhemoglobin (0.5-1.5) % POC ABG HHb (Measured) (0.0-5.0) % ABG Methemoglobin (0.0-3.0) % Crescencio Test ABG Potassium (3.6-5.2) mmol/L A-a O2 Difference mm/Hg Respiratory Index Hgb O2 Saturation (95.0-98.0) % Sodium (132-148) mmol/l Chloride (98-107) mmol/L Glucose (65-105) mg/dl Lactate (0.7-2.1) mmol/L Vent Mode Mechanical Rate FiO2 % Tidal Volume PEEP Crit Value Called To Crit Value Called By Crit Value Read Back Blood Gas Notified Time Potassium (3.6-5.2) mmol/L Carbon Dioxide (22-30) mmol/L Anion Gap (10-20) BUN (7-17) mg/dL Creatinine (0.7-1.2) mg/dL Est GFR ( Amer) Est GFR (Non-Af Amer) POC Glucose (mg/dL) (65-110) mg/dL Random Glucose (65-105) mg/dL Lactic Acid (0.7-2.1) mmol/L Calcium (8.6-10.4) mg/dl Phosphorus (2.5-4.5) mg/dL Magnesium (1.6-2.3) mg/dL Total Bilirubin (0.2-1.3) mg/dL AST (14-36) U/L ALT (9-52) U/L Alkaline Phosphatase (38-126) U/L Total Protein (6.3-8.3) g/dL Albumin (3.5-5.0) g/dL Globulin (2.2-3.9) gm/dL Albumin/Globulin Ratio (1.0-2.1) Arterial Blood Potassium (3.6-5.2) mmol/L Blood Type B POSITIVE Antibody Screen Positive Antibody Identification Cancelled Laboratory Results - last 24 hr 04/05/17 04/06/17 04/06/17 10:43 17:28 20:06 WBC RBC Hgb Hct MCV MCH MCHC RDW Plt Count MPV Neut % (Auto) Lymph % (Auto) [place] % (Auto) Eos % (Auto) Baso % (Auto) Neut # Lymph # [place] # Eos # Baso # Neutrophils % (Manual) Band Neutrophils % Lymphocytes % (Manual) Monocytes % (Manual) Toxic Granulation Platelet Estimate Large Platelets Giant Platelets Polychromasia Hypochromasia (manual) Poikilocytosis (manual Anisocytosis (manual) Microcytosis (manual) Macrocytosis (manual) Target Cells Tear Drop Cells Ovalocytes Luma Cells Schistocytes Fibrinogen Puncture Site pCO2 pO2 HCO3 ABG pH ABG Total CO2 ABG O2 Saturation ABG Base Excess ABG Hemoglobin ABG Carboxyhemoglobin POC ABG HHb (Measured) ABG Methemoglobin Crescencio Test ABG Potassium A-a O2 Difference Respiratory Index Hgb O2 Saturation Sodium Chloride Glucose Lactate Vent Mode Mechanical Rate FiO2 Tidal Volume PEEP Crit Value Called To Crit Value Called By Crit Value Read Back Blood Gas Notified Time Potassium Carbon Dioxide Anion Gap BUN Creatinine Est GFR ( Amer) Est GFR (Non-Af Amer) POC Glucose (mg/dL) 189 H Random Glucose Lactic Acid 7.7 H* Calcium Phosphorus Magnesium Total Bilirubin AST ALT Alkaline Phosphatase Total Protein Albumin Globulin Albumin/Globulin Ratio Arterial Blood Potassium Blood Type B POSITIVE Antibody Screen Positive Antibody Identification Cancelled 04/06/17 04/06/17 04/07/17 20:06 21:45 00:23 WBC 17.5 H RBC 2.22 L Hgb 7.7 L Hct 23.0 L MCV 103.9 H D MCH 34.7 H MCHC 33.4 RDW 21.6 H Plt Count 3 L* D MPV 10.8 Neut % (Auto) 90.8 H Lymph % (Auto) 7.3 L [place] % (Auto) 1.4 Eos % (Auto) 0.0 Baso % (Auto) 0.5 Neut # 15.9 H Lymph # 1.3 [place] # 0.2 Eos # 0.0 Baso # 0.1 Neutrophils % (Manual) 92 H Band Neutrophils % 3 H Lymphocytes % (Manual) 4 L Monocytes % (Manual) 1 Toxic Granulation Present Platelet Estimate Markedly decreased L Large Platelets Giant Platelets Polychromasia Hypochromasia (manual) Poikilocytosis (manual Slight Anisocytosis (manual) Slight Microcytosis (manual) Slight Macrocytosis (manual) Slight Target Cells Tear Drop Cells Ovalocytes [place] Cells Schistocytes Fibrinogen Puncture Site Rradial pCO2 27 L pO2 135 H HCO3 20.7 L ABG pH 7.42 ABG Total CO2 18.3 L ABG O2 Saturation 100.8 H ABG Base Excess -5.5 L ABG Hemoglobin ABG Carboxyhemoglobin POC ABG HHb (Measured) ABG Methemoglobin Crescencio Test Pos ABG Potassium 3.6 A-a O2 Difference 259.0 Respiratory Index 1.9 Hgb O2 Saturation Sodium 149.0 H Chloride 118.0 H Glucose 138 H Lactate 7.0 H* Vent Mode Prvc Mechanical Rate 16 FiO2 60.0 Tidal Volume 400 PEEP 5 Crit Value Called To Dr. hernandez Crit Value Called By Dolly diaz rcp Crit Value Read Back Y Blood Gas Notified Time 2153 Potassium Carbon Dioxide Anion Gap BUN Creatinine Est GFR ( Amer) Est GFR (Non-Af Amer) POC Glucose (mg/dL) 156 H Random Glucose Lactic Acid Calcium Phosphorus Magnesium Total Bilirubin AST ALT Alkaline Phosphatase Total Protein Albumin Globulin Albumin/Globulin Ratio Arterial Blood Potassium 3.6 Blood Type Antibody Screen Antibody Identification 04/07/17 04/07/17 04/07/17 05:27 05:32 06:48 WBC 17.5 H RBC 1.92 L Hgb 6.6 L Hct 20.5 L MCV 106.8 H D MCH 34.3 H MCHC 32.1 L RDW 22.3 H Plt Count 3 L* MPV 12.1 H Neut % (Auto) 90.6 H Lymph % (Auto) 7.0 L [place] % (Auto) 1.9 Eos % (Auto) 0.1 Baso % (Auto) 0.4 Neut # 15.9 H Lymph # 1.2 [place] # 0.3 Eos # 0.0 Baso # 0.1 Neutrophils % (Manual) 88 H Band Neutrophils % 2 Lymphocytes % (Manual) 8 L Monocytes % (Manual) 2 Toxic Granulation Platelet Estimate Markedly decreased L Large Platelets Present Giant Platelets Present Polychromasia Slight Hypochromasia (manual) Slight Poikilocytosis (manual Slight Anisocytosis (manual) Moderate Microcytosis (manual) Slight Macrocytosis (manual) Moderate Target Cells Slight Tear Drop Cells Slight Ovalocytes Slight [place] Cells Slight Schistocytes Slight Fibrinogen Puncture Site Rb pCO2 31 L pO2 102 H HCO3 17.8 L ABG pH 7.32 L ABG Total CO2 17.0 L ABG O2 Saturation 100.1 H ABG Base Excess -9.2 L ABG Hemoglobin 6.6 L ABG Carboxyhemoglobin 1.9 H POC ABG HHb (Measured) -0.1 L ABG Methemoglobin 1.0 Crescencio Test Na ABG Potassium A-a O2 Difference 216.0 Respiratory Index 2.1 Hgb O2 Saturation 97.2 Sodium Chloride Glucose Lactate Vent Mode Prvc Mechanical Rate 16 FiO2 50.0 Tidal Volume 400 PEEP 5 Crit Value Called To Crit Value Called By Crit Value Read Back Blood Gas Notified Time Potassium Carbon Dioxide Anion Gap BUN Creatinine Est GFR ( Amer) Est GFR (Non-Af Amer) POC Glucose (mg/dL) 155 H Random Glucose Lactic Acid Calcium Phosphorus Magnesium Total Bilirubin AST ALT Alkaline Phosphatase Total Protein Albumin Globulin Albumin/Globulin Ratio Arterial Blood Potassium Blood Type Antibody Screen Antibody Identification 04/07/17 04/07/17 04/07/17 06:48 06:48 09:42 WBC RBC Hgb Hct MCV MCH MCHC RDW Plt Count MPV Neut % (Auto) Lymph % (Auto) [place] % (Auto) Eos % (Auto) Baso % (Auto) Neut # Lymph # [place] # Eos # Baso # Neutrophils % (Manual) Band Neutrophils % Lymphocytes % (Manual) Monocytes % (Manual) Toxic Granulation Platelet Estimate Large Platelets Giant Platelets Polychromasia Hypochromasia (manual) Poikilocytosis (manual Anisocytosis (manual) Microcytosis (manual) Macrocytosis (manual) Target Cells Tear Drop Cells Ovalocytes [place] Cells Schistocytes Fibrinogen < 117 L Puncture Site pCO2 pO2 HCO3 ABG pH ABG Total CO2 ABG O2 Saturation ABG Base Excess ABG Hemoglobin ABG Carboxyhemoglobin POC ABG HHb (Measured) ABG Methemoglobin Crescencio Test ABG Potassium A-a O2 Difference Respiratory Index Hgb O2 Saturation Sodium 151 H Chloride 113 H Glucose Lactate Vent Mode Mechanical Rate FiO2 Tidal Volume PEEP Crit Value Called To Crit Value Called By Crit Value Read Back Blood Gas Notified Time Potassium 4.4 Carbon Dioxide 18 L Anion Gap 25 H BUN 81 H Creatinine 1.9 H Est GFR ( Amer) 33 Est GFR (Non-Af Amer) 27 POC Glucose (mg/dL) Random Glucose 121 H Lactic Acid 11.4 H* Calcium 8.7 Phosphorus 4.1 Magnesium 1.7 Total Bilirubin 10.0 H AST 38 H ALT 41 Alkaline Phosphatase 40 Total Protein 4.5 L Albumin 2.8 L Globulin 1.7 L Albumin/Globulin Ratio 1.6 Arterial Blood Potassium Blood Type Antibody Screen Antibody Identification 04/07/17 11:52 WBC RBC Hgb Hct MCV MCH MCHC RDW Plt Count MPV Neut % (Auto) Lymph % (Auto) [place] % (Auto) Eos % (Auto) Baso % (Auto) Neut # Lymph # [place] # Eos # Baso # Neutrophils % (Manual) Band Neutrophils % Lymphocytes % (Manual) Monocytes % (Manual) Toxic Granulation Platelet Estimate Large Platelets Giant Platelets Polychromasia Hypochromasia (manual) Poikilocytosis (manual Anisocytosis (manual) Microcytosis (manual) Macrocytosis (manual) Target Cells Tear Drop Cells Ovalocytes [place] Cells Schistocytes Fibrinogen Puncture Site pCO2 pO2 HCO3 ABG pH ABG Total CO2 ABG O2 Saturation ABG Base Excess ABG Hemoglobin ABG Carboxyhemoglobin POC ABG HHb (Measured) ABG Methemoglobin Crescencio Test ABG Potassium A-a O2 Difference Respiratory Index Hgb O2 Saturation Sodium Chloride Glucose Lactate Vent Mode Mechanical Rate FiO2 Tidal Volume PEEP Crit Value Called To Crit Value Called By Crit Value Read Back Blood Gas Notified Time Potassium Carbon Dioxide Anion Gap BUN Creatinine Est GFR ( Amer) Est GFR (Non-Af Amer) POC Glucose (mg/dL) 128 H Random Glucose Lactic Acid Calcium Phosphorus Magnesium Total Bilirubin AST ALT Alkaline Phosphatase Total Protein Albumin Globulin Albumin/Globulin Ratio Arterial Blood Potassium Blood Type Antibody Screen Antibody Identification Critical Care Progress Note - Nutrition Nutrition: Nutrition Category Date Time Status Heart Healthy Diet [DIET] Diets 03/17/17 Dinner Active Assessment/Plan - Assessment and Plan (Free Text) Plan: Above note reviewed and verified. Patient seen and examined at bedside. Pressures decreasd from 8 to 4 vitals reviewed. not able to provide any history pupils reactive JVD neg b/l air entry (+)S1 (+)S2 abd:tense, distended LE edmea 3+ edema -Shock: combination of septic + hypovolemic; serial lactic, source control, ID followup to cover for anti-pseudomonal agent -check RUQ US and possible transcutaneous billiary drain, surgery consult -continue pressors to keep MAP >65 -Severe lactic acidosis 2nd severe sepsis: continue resusitation -montor urine output -DIC;keep fibrinogen >100 and platelets >10, monitor for bleeding (transfuse 2 units platelets and 15 units fibrinogen) -severe malnutrition: NG tube to suction revealed residual of ~700 ml -Thrombocytopenia: suspect DIC, platelet transfusion -decubititus care as per protocol:(currently strict NPO) -continue DVT(SCDs)/PUX ppx (pepcid IV) Prognosis poor cc time 45 minutes dw nursing and other multidisciplinary staff - Date & Time Date: 04/07/17 Time: 13:21
--- NOTE | 2017-04-07 09:00 | CP.PCM.PN ---
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 considering her overall poor prognosis (advanced liver failure, DIC, sepsis/shock, SARIKA); WATER GAS OPERATOR is unlikely to change her outcome even when needed. palliative care evaluation noted. discussions ongoing. pt DNR now change IVF to 0.45% saline due to hypernatremia. may give NS bolus or IV albumin if needed for hypotension holding diuretics to hypotension. pt remains on pressors PRBC as needed for anemia. Monitor Input/Output, daily weights and renal function with basic metabolic panel Glycemic control Further work up/management as per primary team dose meds for reduced GFR. Avoid fleets enema/magnesium based laxatives. Avoid nephrotoxins/NSAIDs/ iodinated contrast (unless needed emergently) Further work up for as per primary team Thanks for allowing me to participate in care of your patient. Please call if any Qs. d/w ICU team Dr Jaya Flynn Office: [phone] Chief Complaint; unable Reason for consult: hyponatremia, SARIKA HPI: Pt is a 61 y/o F with hx of diabetes Mellitus hypertension, ex smoker, chronic etoh abuse and chronic pancreatitis initially presented with complaints of dysuria and being treated with antibiotics for UTI. she was getting D5/0.45% saline and noted to have decreased serum Na to 124 hence renal consult requested pt remains intubated and back on pressors. BP low again. low UOP. s/p cryo and plat transfusion s/p PRBC Physical Examination: General Appearance: ill appearing, intubated orally Vitals reviewed and noted as below Head; Atraumatic, normocephalic ENT: orally intubated Neck; supple no lymphadenopathy, no thyromegaly or bruit Lungs: increase respiratory rate/effort. Breath sounds bilateral with rales Heart: Increased rate. s1s2 normal. No rub or gallop. Extremities: 2-3+ edema with anasarca. No varicose veins Neurological: Patient is non communicative Skin: Warm and dry. Normal turgor. No rash. Palpitation: Normal elasticity for age Abdomen: Abdomen is soft. Bowel sounds +. There is no abdominal tenderness, no guarding/rigidity no organomegaly has ascites Psych: unable MSK: no joint tenderness or swelling. Digits and nails normal, no deformity : kidney or bladder not palpable. has duong + Labs/imaging/EKG reviewed. Past medical history, past surgical history, family history, social history, allergy reviewed and noted as below Family hx: no hx of CKD. Rest non-contributory recent echo: normal LVEF CT abdomen: chronic pancreatitis, liver disease, increased echogenic kidneys. has compression fractures in vertebra Objective - Vital Signs/Intake and Output Vital Signs (last 24 hours): Temp Pulse Resp BP Pulse Ox 99.5 F 110 H 33 H 100/64 98 04/06/17 16:00 04/07/17 06:46 04/07/17 06:46 04/07/17 06:46 04/07/17 06:46 Intake and Output: 04/07/17 04/07/17 06:59 18:59 Intake Total 2053.0 Output Total 495 Balance 1558.0 - Medications Medications: Current Medications Albuterol/Ipratropium (Duoneb 3 Mg/0.5 Mg (3 Ml) Ud) 3 ml INH RQ6 [facility] Last Admin: 04/07/17 07:48 Dose: 3 ml Ascorbic Acid (Vitamin C 500 Mg Tab) 1,500 mg NG Q6H [facility] Last Admin: 04/07/17 03:30 Dose: 1,500 mg Famotidine (Pepcid) 20 mg PO BID [facility] Last Admin: 04/06/17 17:56 Dose: 20 mg Hydrocortisone Sodium Succinate (Solu-Cortef) 100 mg IV Q8H [facility] Last Admin: 04/07/17 08:56 Dose: 100 mg Tigecycline 50 mg/ Sodium (Chloride) 100 mls @ 100 mls/hr IVPB Q12H [facility] Last Admin: 04/07/17 06:39 Dose: 100 mls/hr Norepinephrine Bitartrate 8 mg (/ Dextrose) 258 mls @ 7.74 mls/hr IV .Q24H PRN ; Protocol; 4 MCG/MIN PRN Reason: TITRATE PER MD ORDER Last Admin: 04/07/17 03:32 Dose: 5 mcg/min, 9.67 mls/hr Fluconazole (Diflucan Iv 200 Mg/100 Ml Ns) 100 mls @ 100 mls/hr IVPB DAILY [facility] Last Admin: 04/06/17 18:15 Dose: 100 mls/hr Sodium Chloride (Sodium Chloride 0.9%) 1,000 mls @ 1,000 mls/hr IV .Q1H ONE Stop: 04/07/17 09:29 Last Admin: 04/07/17 08:56 Dose: 1,000 mls/hr Aztreonam 2 gm/ Sodium (Chloride) 100 mls @ 100 mls/hr IVPB ONCE ONE Stop: 04/07/17 10:29 Insulin Aspart (Novolog) 0 unit SC Q6 [place] PRN Reason: Protocol Last Admin: 04/07/17 05:57 Dose: 1 unit Multivitamins (Hexavitamin) 1 tab PO DAILY [facility] Last Admin: 04/06/17 10:32 Dose: 1 tab Thiamine HCl (Vitamin B1 Inj) 200 mg IV Q8 [place] Stop: 04/09/17 22:01 Last Admin: 04/07/17 05:57 Dose: 200 mg Zinc Sulfate (Zinc Sulfate 220 Mg Cap) 220 mg PO DAILY [facility] Last Admin: 04/06/17 10:33 Dose: 220 mg - Labs Labs: 04/07/17 06:48 04/07/17 06:48 PT 25.0 SECONDS (9.7-12.2) H 03/30/17 06:18 INR 2.2 03/30/17 06:18 APTT 67 SECONDS (21-34) H D 03/30/17 06:18
[2017-04-07] MEDS ORDERED: Aztreonam 2 GM in Sodium Chloride 0.9% 100 ML IVPB ONE (09:30)
[2017-04-07] MEDS ORDERED: Sodium Chloride 0.45% 500ml 500 ML SOL IV SCH (10:00)
[2017-04-07 10:43] LABS: TOTAL CELLS COUNTED 100
[2017-04-07 10:44] LABS: NEUTROPHIL 88 % (50-75)
[2017-04-07 10:47] LABS: GIANT PLATELETS PRESENT; LARGE PLATELETS PRESENT
--- NOTE | 2017-04-07 11:01 | RAD ---
HISTORY: intubated COMPARISON: Comparison is made to 04/06/2017 FINDINGS: LUNGS: Interval mild improvement at the right lung base since the previous exam. Otherwise no significant interval change. Re- demonstrated is diffuse heterogeneous opacity in the lungs. The ET tube is seen at appropriate position PLEURA: No significant pleural effusion identified, no pneumothorax apparent. CARDIOVASCULAR: Normal. Right jugular central line seen in place OSSEOUS STRUCTURES: No significant abnormalities. VISUALIZED UPPER ABDOMEN: The NG tube is seen extending to the stomach. OTHER FINDINGS: None. IMPRESSION: Interval mild improvement at the right lung base. Otherwise no significant interval change.
--- NOTE | 2017-04-07 11:38 | CP.PCM.CON ---
<SebastiánMichaelle - Last Filed: 04/07/17 11:12> History of Present Illness - History of Present Illness History of Present Illness: General Surgery Dr. Gutierrez Obtained from EMR 61 y/o F w/ PMHx of HTN, DM2, TIA presented to the ED on 03/17/17 c/o difficulty urinating and leg weakness. Pt found to have urosepsis and multiple compression fractures of the spine. Pt was admitted for aggressive fluid resuscitation and IV Abx. On 03/27/17 RESEARCH EXECUTIVE was called for respiratory failure, at which time pt was intubated and transferred to the ICU. Pt currently in DIC w / unknown source of bleeding. Pt has received 2 units pRBCs, 6 units PLTS, and 15 units of Cryo. FOBT performed yesterday was positive. Surgery consulted for worsening abd distention. Pt currently intubated and sedated, on 5mcg NE. ROS unobtainable due to pt condition. PMHx: see above, CHF, emphysema, EtOH dependence, chronic pancreatitis Meds: reviewed in chart ALL: tylenol, codeinem PCN PSHx: cardiac catheterization, L wrist, ex-lap SHx: former smoker FHx: unknown Review of Systems - Review of Systems Systems not reviewed;Unavailable: Intubated Past Patient History - Infectious Disease Hx of Infectious Diseases: None - Past Medical History & Family History Past Medical History?: Yes - Past Social History Smoking Status: Former Smoker - CARDIAC Hx Congestive Heart Failure: Yes Hx Hypertension: Yes - PULMONARY Hx Respiratory Disorders: No - NEUROLOGICAL Hx Transient Ischemic Attacks (TIA): Yes (As per pt) - HEENT Hx HEENT Problems: No - RENAL Hx Chronic Kidney Disease: No - ENDOCRINE/METABOLIC Hx Diabetes Mellitus Type 1: Yes - HEMATOLOGICAL/ONCOLOGICAL Hx Blood Disorders: Yes Hx Anemia: Yes Hx Blood Transfusions: Yes - INTEGUMENTARY Hx Dermatological Problems: No - MUSCULOSKELETAL/RHEUMATOLOGICAL Hx Falls: Yes Hx Fractures: Yes (left 5th metacarpal) - GASTROINTESTINAL Hx Gastrointestinal Disorders: No - GENITOURINARY/GYNECOLOGICAL Hx Genitourinary Disorders: No - PSYCHIATRIC Hx Depression: Yes Hx Substance Use: No - SURGICAL HISTORY Hx Surgeries: Yes Hx Angiogram: Yes (Lt Hrt Angiocardiogram 04/2014) Hx Cardiac Catheterization: Yes (Lt hrt Cardiac cath 04/2014) Hx Orthopedic Surgery: Yes (left wrist) Other/Comment: ABDOMINAL EXPLORITORY SX. - ANESTHESIA Hx Anesthesia: Yes Hx Anesthesia Reactions: No Hx Malignant Hyperthermia: No Meds Allergies/Adverse Reactions: Allergies Allergy/AdvReac Type Severity Reaction Status Date / Time acetaminophen [From Tylenol] Allergy Intermediate SWELLING Verified 03/17/17 14: 32 codeine Allergy Intermediate SWELLING Verified 03/17/17 14:32 Penicillins Allergy Intermediate SWELLING Verified 03/17/17 14:32 - Medications Medications: Current Medications Albuterol/Ipratropium (Duoneb 3 Mg/0.5 Mg (3 Ml) Ud) 3 ml INH RQ6 [facility] Last Admin: 04/07/17 07:48 Dose: 3 ml Ascorbic Acid (Vitamin C 500 Mg Tab) 1,500 mg NG Q6H [facility] Last Admin: 04/07/17 03:30 Dose: 1,500 mg Famotidine (Pepcid) 20 mg PO BID [facility] Last Admin: 04/06/17 17:56 Dose: 20 mg Hydrocortisone Sodium Succinate (Solu-Cortef) 100 mg IV Q8H [facility] Last Admin: 04/07/17 08:56 Dose: 100 mg Tigecycline 50 mg/ Sodium (Chloride) 100 mls @ 100 mls/hr IVPB Q12H [facility] Last Admin: 04/07/17 06:39 Dose: 100 mls/hr Norepinephrine Bitartrate 8 mg (/ Dextrose) 258 mls @ 7.74 mls/hr IV .Q24H PRN ; Protocol; 4 MCG/MIN PRN Reason: TITRATE PER MD ORDER Last Admin: 04/07/17 03:32 Dose: 5 mcg/min, 9.67 mls/hr Fluconazole (Diflucan Iv 200 Mg/100 Ml Ns) 100 mls @ 100 mls/hr IVPB DAILY [facility] Last Admin: 04/06/17 18:15 Dose: 100 mls/hr Insulin Aspart (Novolog) 0 unit SC Q6 [place] PRN Reason: Protocol Last Admin: 04/07/17 05:57 Dose: 1 unit Multivitamins (Hexavitamin) 1 tab PO DAILY [facility] Last Admin: 04/06/17 10:32 Dose: 1 tab Thiamine HCl (Vitamin B1 Inj) 200 mg IV Q8 [facility] Stop: 04/09/17 22:01 Last Admin: 04/07/17 05:57 Dose: 200 mg Zinc Sulfate (Zinc Sulfate 220 Mg Cap) 220 mg PO DAILY [facility] Last Admin: 04/06/17 10:33 Dose: 220 mg Physical Exam - Constitutional Appears: Toxic, No Acute Distress, Chronically Ill - Head Exam Head Exam: NORMAL INSPECTION - Eye Exam Eye Exam: Scleral icterus - ENT Exam ENT Exam: Mucous Membranes Moist Additional comments: blood present at oropharynx ETT and OGT in place - Respiratory Exam Respiratory Exam: NORMAL BREATHING PATTERN (mechanical ventilation) - Cardiovascular Exam Cardiovascular Exam: Tachycardia - GI/Abdominal Exam GI & Abdominal Exam: Distended, Firm Additional comments: no scars from previous surgeries noted scattered petechiae and ecchymosis present - Rectal Exam Additional comments: rectal tube in place - Neurological Exam Neurological exam: Altered - Skin Skin Exam: Dry, Warm Additional comments: jaundice Results - Vital Signs Recent Vital Signs: Last Vital Signs Temp 98.5 F 04/07/17 09:45 Pulse 106 H 04/07/17 09:45 Resp 36 H 04/07/17 09:45 BP 74/33 L 04/07/17 09:45 Pulse Ox 98 04/07/17 06:46 - Labs Result Diagrams: 04/07/17 06:48 04/07/17 06:48 Labs: Laboratory Results - last 24 hr 04/05/17 04/06/17 04/06/17 10:43 11:37 17:28 WBC RBC Hgb Hct MCV MCH MCHC RDW Plt Count MPV Neut % (Auto) Lymph % (Auto) [place] % (Auto) Eos % (Auto) Baso % (Auto) Neut # Lymph # [place] # Eos # Baso # Neutrophils % (Manual) Band Neutrophils % Lymphocytes % (Manual) Monocytes % (Manual) Toxic Granulation Platelet Estimate Large Platelets Giant Platelets Polychromasia Hypochromasia (manual) Poikilocytosis (manual Anisocytosis (manual) Microcytosis (manual) Macrocytosis (manual) Target Cells Tear Drop Cells Ovalocytes [place] Cells Schistocytes Fibrinogen Puncture Site pCO2 pO2 HCO3 ABG pH ABG Total CO2 ABG O2 Saturation ABG Base Excess ABG Hemoglobin ABG Carboxyhemoglobin POC ABG HHb (Measured) ABG Methemoglobin Crescencio Test ABG Potassium A-a O2 Difference Respiratory Index Hgb O2 Saturation Sodium Chloride Glucose Lactate Vent Mode Mechanical Rate FiO2 Tidal Volume PEEP Crit Value Called To Crit Value Called By Crit Value Read Back Blood Gas Notified Time Potassium Carbon Dioxide Anion Gap BUN Creatinine Est GFR ( Amer) Est GFR (Non-Af Amer) POC Glucose (mg/dL) 136 H 189 H Random Glucose Lactic Acid Calcium Phosphorus Magnesium Total Bilirubin AST ALT Alkaline Phosphatase Total Protein Albumin Globulin Albumin/Globulin Ratio Arterial Blood Potassium Blood Type B POSITIVE Antibody Screen Positive Antibody Identification Cancelled 04/06/17 04/06/17 04/06/17 20:06 20:06 21:45 WBC 17.5 H RBC 2.22 L Hgb 7.7 L Hct 23.0 L MCV 103.9 H D MCH 34.7 H MCHC 33.4 RDW 21.6 H Plt Count 3 L* D MPV 10.8 Neut % (Auto) 90.8 H Lymph % (Auto) 7.3 L [place] % (Auto) 1.4 Eos % (Auto) 0.0 Baso % (Auto) 0.5 Neut # 15.9 H Lymph # 1.3 [place] # 0.2 Eos # 0.0 Baso # 0.1 Neutrophils % (Manual) 92 H Band Neutrophils % 3 H Lymphocytes % (Manual) 4 L Monocytes % (Manual) 1 Toxic Granulation Present Platelet Estimate Markedly decreased L Large Platelets Giant Platelets Polychromasia Hypochromasia (manual) Poikilocytosis (manual Slight Anisocytosis (manual) Slight Microcytosis (manual) Slight Macrocytosis (manual) Slight Target Cells Tear Drop Cells Ovalocytes [place] Cells Schistocytes Fibrinogen Puncture Site Rradial pCO2 27 L pO2 135 H HCO3 20.7 L ABG pH 7.42 ABG Total CO2 18.3 L ABG O2 Saturation 100.8 H ABG Base Excess -5.5 L ABG Hemoglobin ABG Carboxyhemoglobin POC ABG HHb (Measured) ABG Methemoglobin Crescencio Test Pos ABG Potassium 3.6 A-a O2 Difference 259.0 Respiratory Index 1.9 Hgb O2 Saturation Sodium 149.0 H Chloride 118.0 H Glucose 138 H Lactate 7.0 H* Vent Mode Prvc Mechanical Rate 16 FiO2 60.0 Tidal Volume 400 PEEP 5 Crit Value Called To Dr. hernandez Crit Value Called By Dolly diaz rcp Crit Value Read Back Y Blood Gas Notified Time 2153 Potassium Carbon Dioxide Anion Gap BUN Creatinine Est GFR ( Amer) Est GFR (Non-Af Amer) POC Glucose (mg/dL) Random Glucose Lactic Acid 7.7 H* Calcium Phosphorus Magnesium Total Bilirubin AST ALT Alkaline Phosphatase Total Protein Albumin Globulin Albumin/Globulin Ratio Arterial Blood Potassium 3.6 Blood Type Antibody Screen Antibody Identification 04/07/17 04/07/17 04/07/17 00:23 05:27 05:32 WBC RBC Hgb Hct MCV MCH MCHC RDW Plt Count MPV Neut % (Auto) Lymph % (Auto) [place] % (Auto) Eos % (Auto) Baso % (Auto) Neut # Lymph # [place] # Eos # Baso # Neutrophils % (Manual) Band Neutrophils % Lymphocytes % (Manual) Monocytes % (Manual) Toxic Granulation Platelet Estimate Large Platelets Giant Platelets Polychromasia Hypochromasia (manual) Poikilocytosis (manual Anisocytosis (manual) Microcytosis (manual) Macrocytosis (manual) Target Cells Tear Drop Cells Ovalocytes [place] Cells Schistocytes Fibrinogen Puncture Site Rb pCO2 31 L pO2 102 H HCO3 17.8 L ABG pH 7.32 L ABG Total CO2 17.0 L ABG O2 Saturation 100.1 H ABG Base Excess -9.2 L ABG Hemoglobin 6.6 L ABG Carboxyhemoglobin 1.9 H POC ABG HHb (Measured) -0.1 L ABG Methemoglobin 1.0 Crescencio Test Na ABG Potassium A-a O2 Difference 216.0 Respiratory Index 2.1 Hgb O2 Saturation 97.2 Sodium Chloride Glucose Lactate Vent Mode Prvc Mechanical Rate 16 FiO2 50.0 Tidal Volume 400 PEEP 5 Crit Value Called To Crit Value Called By Crit Value Read Back Blood Gas Notified Time Potassium Carbon Dioxide Anion Gap BUN Creatinine Est GFR ( Amer) Est GFR (Non-Af Amer) POC Glucose (mg/dL) 156 H 155 H Random Glucose Lactic Acid Calcium Phosphorus Magnesium Total Bilirubin AST ALT Alkaline Phosphatase Total Protein Albumin Globulin Albumin/Globulin Ratio Arterial Blood Potassium Blood Type Antibody Screen Antibody Identification 04/07/17 04/07/17 04/07/17 06:48 06:48 06:48 WBC 17.5 H RBC 1.92 L Hgb 6.6 L Hct 20.5 L MCV 106.8 H D MCH 34.3 H MCHC 32.1 L RDW 22.3 H Plt Count 3 L* MPV 12.1 H Neut % (Auto) 90.6 H Lymph % (Auto) 7.0 L [place] % (Auto) 1.9 Eos % (Auto) 0.1 Baso % (Auto) 0.4 Neut # 15.9 H Lymph # 1.2 [place] # 0.3 Eos # 0.0 Baso # 0.1 Neutrophils % (Manual) 88 H Band Neutrophils % 2 Lymphocytes % (Manual) 8 L Monocytes % (Manual) 2 Toxic Granulation Platelet Estimate Markedly decreased L Large Platelets Present Giant Platelets Present Polychromasia Slight Hypochromasia (manual) Slight Poikilocytosis (manual Slight Anisocytosis (manual) Moderate Microcytosis (manual) Slight Macrocytosis (manual) Moderate Target Cells Slight Tear Drop Cells Slight Ovalocytes Slight [place] Cells Slight Schistocytes Slight Fibrinogen < 117 L Puncture Site pCO2 pO2 HCO3 ABG pH ABG Total CO2 ABG O2 Saturation ABG Base Excess ABG Hemoglobin ABG Carboxyhemoglobin POC ABG HHb (Measured) ABG Methemoglobin Crescencio Test ABG Potassium A-a O2 Difference Respiratory Index Hgb O2 Saturation Sodium 151 H Chloride 113 H Glucose Lactate Vent Mode Mechanical Rate FiO2 Tidal Volume PEEP Crit Value Called To Crit Value Called By Crit Value Read Back Blood Gas Notified Time Potassium 4.4 Carbon Dioxide 18 L Anion Gap 25 H BUN 81 H Creatinine 1.9 H Est GFR ( Amer) 33 Est GFR (Non-Af Amer) 27 POC Glucose (mg/dL) Random Glucose 121 H Lactic Acid Calcium 8.7 Phosphorus 4.1 Magnesium 1.7 Total Bilirubin 10.0 H AST 38 H ALT 41 Alkaline Phosphatase 40 Total Protein 4.5 L Albumin 2.8 L Globulin 1.7 L Albumin/Globulin Ratio 1.6 Arterial Blood Potassium Blood Type Antibody Screen Antibody Identification 04/07/17 09:42 WBC RBC Hgb Hct MCV MCH MCHC RDW Plt Count MPV Neut % (Auto) Lymph % (Auto) [place] % (Auto) Eos % (Auto) Baso % (Auto) Neut # Lymph # [place] # Eos # Baso # Neutrophils % (Manual) Band Neutrophils % Lymphocytes % (Manual) Monocytes % (Manual) Toxic Granulation Platelet Estimate Large Platelets Giant Platelets Polychromasia Hypochromasia (manual) Poikilocytosis (manual Anisocytosis (manual) Microcytosis (manual) Macrocytosis (manual) Target Cells Tear Drop Cells Ovalocytes [place] Cells Schistocytes Fibrinogen Puncture Site pCO2 pO2 HCO3 ABG pH ABG Total CO2 ABG O2 Saturation ABG Base Excess ABG Hemoglobin ABG Carboxyhemoglobin POC ABG HHb (Measured) ABG Methemoglobin Crescencio Test ABG Potassium A-a O2 Difference Respiratory Index Hgb O2 Saturation Sodium Chloride Glucose Lactate Vent Mode Mechanical Rate FiO2 Tidal Volume PEEP Crit Value Called To Crit Value Called By Crit Value Read Back Blood Gas Notified Time Potassium Carbon Dioxide Anion Gap BUN Creatinine Est GFR ( Amer) Est GFR (Non-Af Amer) POC Glucose (mg/dL) Random Glucose Lactic Acid 11.4 H* Calcium Phosphorus Magnesium Total Bilirubin AST ALT Alkaline Phosphatase Total Protein Albumin Globulin Albumin/Globulin Ratio Arterial Blood Potassium Blood Type Antibody Screen Antibody Identification - Imaging and Cardiology Chest x-ray Status: Image reviewed by me US - abdomen Status: Image reviewed by me, Report reviewed by me Assessment & Plan - Assessment and Plan (Free Text) Assessment: 61 y/o F in septic shock 2/2 urosepsis w/ DIC and and abd distention - Pt is DNR/DNI - monitor vitals - H/H Q6 - transfuse PRN - pt is extremely poor surgical candidate - No surgical intervention at this time - cont medical management per Critical Care Pt discussed w/ Dr. Brenda Lowery DO PGY2 <Pa Gutierrez - Last Filed: 04/09/17 15:47> Results - Vital Signs Recent Vital Signs: Last Vital Signs Temp 98 F 04/07/17 23:03 Pulse 45 L 04/08/17 00:00 Resp 0 L 04/08/17 01:00 BP 49/27 L 04/07/17 23:55 Pulse Ox 78 L 04/07/17 23:28 - Labs Result Diagrams: 04/07/17 06:48 04/07/17 06:48 Attending/Attestation - Attestation I have personally seen and examined this patient.: Yes I have fully participated in the care of the patient.: Yes I have reviewed all pertinent clinical information: Yes Notes (Text): Pt was seen and examined at bedside Agree with above note and assessment Pt with septic shock and Urosepsis Abdomen distended No peritoneal signs Labs and radiology reviewed Abdominal distention is due to Ascitis Get CT scan of A/P if pt is stable No General surgical intervention is required at present Plan d/w with ICU attending c/w current mx f.u PRN
[2017-04-07] MEDS: Fluconazole IV 200mg/100 ml NS 100 ML IVPB SCH (12:27)
--- NOTE | 2017-04-07 14:50 | US ---
HISTORY: r/o cholecystitis COMPARISON: Comparison is made to the previous study dated 03/27/2017 TECHNIQUE: Sonographic evaluation of the right upper quadrant of the abdomen. FINDINGS: LIVER: Measures 13.7 cm in length. Heterogeneous nodular border with cirrhotic manifestation of the liver parenchyma noted. No mass. No intrahepatic bile duct dilatation. GALLBLADDER: Gallbladder wall thickening likely due to soft tissue edema and presence of ascites COMMON BILE DUCT: The common bile duct is not clearly visualized in this exam PANCREAS: The pancreas is not well visualized obscured by overlying bowel gas RIGHT KIDNEY: Measures 8.9 x 4.5 x 5 cm in length. Normal echogenicity. No calculus, mass, or hydronephrosis. AORTA: Not well visualized IVC: Unremarkable. OTHER FINDINGS: Large ascites is noted. Right pleural effusion is also noted. IMPRESSION: Limited portable study. Cirrhotic manifestation of the liver noted. CBD is not well visualized. No evidence of gallstones. Gallbladder wall thickening which could be due to soft tissue edema and presence of ascites. No evidence of right hydronephrosis. Large ascites and small right pleural effusion.
[2017-04-07] MEDS: Multiple Vitamins Tab PO SCH (15:17)
[2017-04-07] MEDS ORDERED: Calcium Gluconate 4.65 mEq/10 ml Inj IV ONE (17:55)
[2017-04-07] MEDS ORDERED: Sodium Bicarbonate (8.4%) 50 Meq Syringe IVP ONE ×3 (18:40→23:59)
[2017-04-07 23:04] VITALS: TEMP 98
[2017-04-07] MEDS ORDERED: Dextrose 50% SYRINGE Inj (50 ml) IV STA ×2 (23:36→23:38)
[2017-04-07] MEDS ORDERED: Dextrose 50% VIAL Inj (50 ml) IV ONE ×2 (23:43→23:50)
[2017-04-07] MEDS ORDERED: Dextrose 5%/0.9% NS 1,000 ML IV SCH (23:45)
--- NOTE | 2017-04-08 00:15 | CP.PCM.PRO ---
Pronouncement of Note - Clinical Findings Physical Exam: No Response Verbal/Painful Stimuli, Absent Peripheral Pulses{ Carotid & Femoral}, Absent Heart & Breath Sounds, No Pupillary Light Reflex, No Corneal Reflex, Pupils Fixed & Dilated, Absence of Vital Signs - Pronouncement Time Time of Pronouncement of : 12:10 - Notifications Pronouncement Notifications: Family Notified (Called Moses Medel [phone] no response left messg to call back), Atending Notified (informed by nurse) [employer] Operator Notified: No (Natural not [place] case) - Autopsy Autopsy Requested: No [place] [id number] Additional Comments: Dr. Leobardo Meehan assisted in obtaining [place] number due to internet difficulty.
--- NOTE | 2017-04-08 00:19 | PN ---
DATE: 04/07/2017 LOCATION: The patient is in room 312.04/07/2017 SUBJECTIVE: Still tachycardic, hypertensive, platelets are still low. Continue supportive care. Orlando Michel MD
[2017-04-08 02:38] VITALS: BP 49/27; PULSE 45; RESP 0; O2SAT 78
--- NOTE | 2017-04-08 17:02 | CP.PCM.PN ---
Subjective - Date & Time of Evaluation Date of Evaluation: 04/07/17 Time of Evaluation: 12:00 - Subjective Subjective: Vented Objective - Vital Signs/Intake and Output Vital Signs (last 24 hours): Temp Pulse Resp BP Pulse Ox 98 F 45 L 0 L 49/27 L 78 L 04/07/17 23:03 04/08/17 00:00 04/08/17 01:00 04/07/17 23:55 04/07/17 23:28 Intake and Output: 04/08/17 04/08/17 06:59 18:59 Intake Total 772.5 Output Total 0 Balance 772.5 - Labs Labs: 04/07/17 06:48 04/07/17 06:48 PT 25.0 SECONDS (9.7-12.2) H 03/30/17 06:18 INR 2.2 03/30/17 06:18 APTT 67 SECONDS (21-34) H D 03/30/17 06:18 - Head Exam Head Exam: ATRAUMATIC - Eye Exam Eye Exam: Normal appearance - ENT Exam ENT Exam: Mucous Membranes Dry - Respiratory Exam Respiratory Exam: Decreased Breath Sounds - Cardiovascular Exam Cardiovascular Exam: +S1, +S2 - GI/Abdominal Exam GI & Abdominal Exam: Normal Bowel Sounds Assessment and Plan (1) DIC (disseminated intravascular coagulation) Assessment & Plan: severe secondary to sepsis s/p cryopercipitate transfuse cryo if fibrinogen < 100 on antibiotcs Status: Acute (2) Thrombocytopenia Assessment & Plan: severe sepsis and DIC transfuse plt to maintain above 10,000 Status: Acute (3) Coagulopathy Assessment & Plan: DIC nutritional component Status: Acute (4) Anemia Assessment & Plan: chronic disease, DIC Status: Acute
--- NOTE | 2017-04-09 08:29 | PN ---
DATE: 04/07/2017 SUBJECTIVE: Patient on Ventilator, ____ tachycardic, hypertensive, platelets are still low. Continue supportive care. Orlando Michel MD
--- NOTE | 2017-04-09 10:46 | VASCLAB ---
PROCEDURE: Lower Extremity Venous Duplex Exam. HISTORY: Leg pain PRIORS: None. TECHNIQUE: Bilateral common femoral, femoral, popliteal and posterior tibial, peroneal and great saphenous veins were evaluated. Flow was assessed with color Doppler, compressibility, assessment of phasic flow and augmentation response. Report prepared by [facility] FINDINGS: RIGHT: 1. Common Femoral Vein: 1.1. Compressibility - Fully compressible: Thrombus - None : Flow - Phasic: Augmentation -Normal: Reflux - None. 2. Femoral Vein: 2.1. Compressibility - Fully compressible: Thrombus - None : Flow - Phasic: Augmentation -Normal: Reflux - None. 3. Popliteal Vein: 3.1. Compressibility - Fully compressible: Thrombus - None : Flow - Phasic: Augmentation -Normal: Reflux - None. 4. Posterior Tibial Vein: 4.1. Compressibility - NA: Thrombus - : Flow - : Augmentation -: Reflux - . 5. Peroneal Vein: 5.1. Compressibility - NA: Thrombus - : Flow - : Augmentation -: Reflux - . 6. Great Saphenous Vein: 6.1. Compressibility - NA: Thrombus - : Flow - : Augmentation - : Reflux - . LEFT: 1. Common Femoral Vein: 1.1. Compressibility - Fully compressible: Thrombus - None: Flow - Phasic: Augmentation -Normal: Reflux - None. 2. Femoral Vein: 2.1. Compressibility - Fully compressible: Thrombus - None: Flow - Phasic: Augmentation -Normal: Reflux - None. 3. Popliteal Vein: 3.1. Compressibility - Fully compressible: Thrombus - None : Flow - Phasic: Augmentation -Normal: Reflux - None. 4. Posterior Tibial Vein: 4.1. Compressibility - NA: Thrombus - : Flow - : Augmentation -: Reflux - . 5. Peroneal Vein: 5.1. Compressibility - NA: Thrombus - : Flow - : Augmentation -: Reflux - . 6. Great Saphenous Vein: 6.1. Compressibility - NA: Thrombus - : Flow - : Augmentation - : Reflux - . OTHER FINDINGS: Right: None significant. Left: None significant. IMPRESSION: Right: No evidence of deep or superficial vein thrombosis of the right lower extremity. Normal valve function noted of the right side. Left: No evidence of deep or superficial vein thrombosis of the left lower extremity. Normal valve function noted of the left side.
--- NOTE | 2017-04-12 06:43 | DS ---
HISTORY OF PRESENT ILLNESS: Ms. Jones was admitted to the hospital with chief complaint of difficulty walking, difficulty urinating. The patient was found to have urosepsis, generalized muscle weakness. Treated with antibiotics. The patient has massive ascites. The patient received IV antibiotic. Developed pneumonia. Intubated and transferred to ICU with profound ARDS, respiratory failure, sepsis. The patient . DIAGNOSES: Sepsis, liver failure, and muscle weakness. Orlando Michel MD
== END 2017-04-08 05:30 | DRG 584 ==
LOC: C.ER 14:17 → C.9E 17:26 → C.3T 17:48 → OBSVTOIN 03-19 15:11 → C.3T 03-20 22:29 → C.9I 03-27 17:08
PROVIDERS: ADMIT Internal Medicine Pulmonary Disease; ATTEND Internal Medicine Pulmonary Disease
PROC: 0W9G3ZZ Drainage of Peritoneal Cavity, Percutaneous Approach (ICD-10-PCS; principal; 2017-03-23)
PROC: BW40ZZZ Ultrasonography of Abdomen (ICD-10-PCS; 2017-03-23)
PROC: 5A1955Z Respiratory Ventilation, Greater than 96 Consecutive Hours (ICD-10-PCS; 2017-03-27)
PROC: 0BH18EZ Insertion of Endotracheal Airway into Trachea, Via Natural or Artificial Opening Endoscopic (ICD-10-PCS; 2017-03-27)
PROC: 30233M1 Transfusion of Nonautologous Plasma Cryoprecipitate into Peripheral Vein, Percutaneous Approach (ICD-10-PCS; 2017-03-27)
PROC: 30233N1 Transfusion of Nonautologous Red Blood Cells into Peripheral Vein, Percutaneous Approach (ICD-10-PCS; 2017-03-27)
PROC: 30233R1 Transfusion of Nonautologous Platelets into Peripheral Vein, Percutaneous Approach (ICD-10-PCS; 2017-03-27)
PROC: 05HM33Z Insertion of Infusion Device into Right Internal Jugular Vein, Percutaneous Approach (ICD-10-PCS; 2017-03-28)
DX: A41.9 Sepsis, unspecified organism (principal); D65 Disseminated intravascular coagulation [defibrination syndrome]; J96.00 Acute respiratory failure, unspecified whether with hypoxia or hypercapnia; N17.0 Acute kidney failure with tubular necrosis; R65.21 Severe sepsis with septic shock; J80 Acute respiratory distress syndrome; D69.59 Other secondary thrombocytopenia; E77.8 Other disorders of glycoprotein metabolism; K76.6 Portal hypertension; I11.0 Hypertensive heart disease with heart failure; J18.9 Pneumonia, unspecified organism; E46 Unspecified protein-calorie malnutrition; E87.2 Acidosis; I50.9 Heart failure, unspecified; E87.1 Hypo-osmolality and hyponatremia; E87.6 Hypokalemia; J43.9 Emphysema, unspecified; K74.60 Unspecified cirrhosis of liver; N39.0 Urinary tract infection, site not specified; R18.8 Other ascites; K70.40 Alcoholic hepatic failure without coma; E83.42 Hypomagnesemia; D63.8 Anemia in other chronic diseases classified elsewhere; E10.9 Type 1 diabetes mellitus without complications; E78.5 Hyperlipidemia, unspecified; E83.51 Hypocalcemia; E86.0 Dehydration; F10.20 Alcohol dependence, uncomplicated; K27.9 Peptic ulcer, site unspecified, unspecified as acute or chronic, without hemorrhage or perforation; K86.0 Alcohol-induced chronic pancreatitis; M60.9 Myositis, unspecified; Z79.4 Long term (current) use of insulin; Z86.73 Personal history of transient ischemic attack (TIA), and cerebral infarction without residual deficits; Z87.11 Personal history of peptic ulcer disease; Z87.440 Personal history of urinary (tract) infections; Z87.891 Personal history of nicotine dependence; Z88.0 Allergy status to penicillin; Z66 Do not resuscitate; M48.54XS Collapsed vertebra, not elsewhere classified, thoracic region, sequela of fracture